=== PATIENT | female | born 1995 | race Caucasian/White ===

== ENCOUNTER 2024-09-19 09:37 | Outpatient (OUT) | payer OTHER, SELFPAY ==
--- NOTE | 2024-09-19 09:55 | XR_ITS ---
[address] [address] Patient Name: EFE DODGE MRN: [id number] date: 1995 Sex: F Assigned Patient Location: [facility] Current Patient Location: [facility] Accession/Order Number: [id number] Exam Date: 09/19/2024 12:31 Report Date: 09/19/2024 12:31 At the request of: LEONARD CHEW MD Procedure: XR chest 2V Chest 2 views CLINICAL HISTORY: Preop exam COMPARISON: None FINDINGS: Heart normal in size. Lungs are clear. No free air. XR/XR chest 2V IMPRESSION: NO ACUTE CARDIOPULMONARY ABNORMALITY. Impression dictated by: [place] Jr. DRaquelORaquel09/19/2024 12:31 PM Dictation Location: [place] [address] Electronically authenticated by: [id number] Y Date: 09/19/2024 12:31
--- NOTE | 2024-09-19 09:55 | ECG_ITS ---
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 Measurements Intervals [place] Rate: 69 P: 18 [place]: 166 QRS: 15 QRSD: 90 T: 33 QT: 381 QTc: 410 Interpretive Statements SINUS RHYTHM Compared to ECG 07/08/2017 23:31:56 No significant changes Electronically Signed On 09-19-2024 17:29:40 EDT by ANDREI VANEGAS M.D.
--- NOTE | 2024-09-19 10:37 | PM.PRESUREVA ---
History of Present Illness History of Present Illness Chief complaint: right trigger thumb Narrative: Patient presents for presurgical testing. The patient reports a 2-month history of right trigger thumb. The patient states she had a left trigger thumb with release in the past with a good result. The patient states she does take Celebrex for fibromyalgia and this also gives some relief of her pain, but when she does repetitive activities she has an increase in her discomfort. Review of Systems ROS Narrative REVIEW OF SYSTEMS: Negative except as stated in HPI, ten or more systems reviewed. Constitutional: No fever, chills, weakness ENT: No sore throat or epistaxis Cardiovascular: No edema, chest pain, palpitations, or activity intolerance Respiratory: No shortness of breath, cough, or wheezing Gastrointestinal: No abdominal pain, constipation, diarrhea, or vomiting Genitourinary: No dysuria or hematuria Neurological: No numbness, tingling, weakness, or headache Psychiatric: No mood changes [facility] History (Updated 09/19/24 @ 10:18 by Falguni Mendoza NP) PVCs (premature ventricular contractions) ?I49.3 - Ventricular premature depolarization (ICD-10) Arthritis ?M19.90 - Unspecified osteoarthritis, unspecified site (ICD-10) Fibromyalgia ?M79.7 - Fibromyalgia (ICD-10) Back pain ?M54.9 - Dorsalgia, unspecified (ICD-10) Anemia ?D64.9 - Anemia, unspecified (ICD-10) PTSD (post-traumatic stress disorder) ?F43.10 - Post-traumatic stress disorder, unspecified (ICD-10) Panic attacks ?F41.0 - Panic disorder [episodic paroxysmal anxiety] (ICD-10) Asthma ?J45.909 - Unspecified asthma, uncomplicated (ICD-10) Migraine ?G43.909 - Migraine, unspecified, not intractable, without status migrainosus (ICD-10) PVD (peripheral vascular disease) ?I73.9 - Peripheral vascular disease, unspecified (ICD-10) Postoperative nausea and vomiting ?R11.2 - Nausea with vomiting, unspecified (ICD-10) ?Z98.890 - Other specified postprocedural states (ICD-10) Sciatica ?M54.30 - Sciatica, unspecified side (ICD-10) Ovarian cyst ?N83.209 - Unspecified ovarian cyst, unspecified side (ICD-10) Endometriosis ?N80.9 - Endometriosis, unspecified (ICD-10) Depression ?F32.A - Depression, unspecified (ICD-10) Chronic back pain ?M54.9 - Dorsalgia, unspecified (ICD-10) ?G89.29 - Other chronic pain (ICD-10) Bronchitis ?J40 - Bronchitis, not specified as acute or chronic (ICD-10) Anxiety ?F41.9 - Anxiety disorder, unspecified (ICD-10) Trigger thumb ?M65.319 - Trigger thumb, unspecified thumb (ICD-10) Surgical History (Updated 09/19/24 @ 10:17 by Falguni Mendoza NP) History of tonsillectomy and adenoidectomy ?Z90.89 - Acquired absence of other organs (ICD-10) History of hip surgery ?Z98.890 - Other specified postprocedural states (ICD-10) History of radiofrequency ablation (RFA) of nerve of lumbar spine ?Z98.890 - Other specified postprocedural states (ICD-10) S/P epidural steroid injection ?Z92.241 - Personal history of systemic steroid therapy (ICD-10) History of carpal tunnel release ?Z98.890 - Other specified postprocedural states (ICD-10) H/O hand surgery ?Z98.890 - Other specified postprocedural states (ICD-10) History of hysterectomy ?Z90.710 - Acquired absence of both cervix and uterus (ICD-10) History of cholecystectomy ?Z90.49 - Acquired absence of other specified parts of digestive tract (ICD-10) Family History (Updated 09/19/24 @ 10:17 by Falguni Mendoza NP) Other Family history of cancer Family history of diabetes mellitus Family history of heart disease Family history of hypertension Family history of myocardial infarction Family history of pulmonary embolism Family history of stroke Social History (Updated 09/19/24 @ 10:12 by Falguni Mendoza NP) Within the past year, how often did you have a drink containing alcohol: monthly or less Smoking status: Never smoker Non-prescribed substance use: cannabis (any form) Highest level of school completed/degree received: some college, no degree Meds Home Medications and Allergies Home Medications ?Medication ?Instructions ?Recorded ?Confirmed ?Type albuterol sulfate 90 mcg/actuation 2 inh inhalation Q4H PRN 09/19/24 09/19/24 History aerosol inhaler bronchospasm budesonide-formoterol HFA 160 1 inh inhalation Q12H 09/19/24 09/19/24 History mcg-4.5 mcg/actuation aerosol inhaler (Symbicort) cariprazine 1.5 mg capsule 1.5 mg PO DAILY 09/19/24 09/19/24 History (Vraylar) celecoxib 200 mg capsule 200 mg PO Q12H 09/19/24 09/19/24 History cholecalciferol (vitamin D3) 25 25 mcg PO DAILY 09/19/24 09/19/24 History mcg (1,000 unit) capsule gabapentin 100 mg capsule 100 mg PO DAILY 09/19/24 09/19/24 History ipratropium 0.5 mg-albuterol 3 mg 3 ml inhalation Q6H PRN shortness 09/19/24 09/19/24 History (2.5 mg base)/3 mL nebulization of breath or wheezing soln magnesium glycinate 100 mg (as 100 mg PO DAILY 09/19/24 09/19/24 History glycinate) tablet (Mag Glycinate) montelukast 10 mg tablet 10 mg PO QPM 09/19/24 09/19/24 History (Singulair) tizanidine 2 mg tablet 2 mg PO QPM 09/19/24 09/19/24 History trazodone 50 mg tablet 50 mg PO QPM 09/19/24 09/19/24 History Allergies Allergy/AdvReac Type Severity Reaction Status Date / Time No Known Drug Allergies Allergy Verified 09/19/24 10:06 Exam Narrative Exam Narrative: Constitutional: Awake, alert, comfortable, well-appearing, nontoxic, interactive, vital signs as charted Head: Normocephalic, atraumatic Neck: Supple, normal appearance, normal range of motion, no meningeal signs, no lymphadenopathy Respiratory: No respiratory distress, breath sounds clear Cardiovascular: Regular rate and rhythm, strong and regular heart tones Musculoskeletal: Normal gait, no swelling or edema, mild tenderness at the base of the right thumb Skin: No rashes or induration, no lesions, only visible skin inspected Neuro: No neurological deficits, normal sensation Psychiatric: Oriented ?3, normal affect Assessment and Plan Assessment and Plan (1) Trigger thumb: Plan Right trigger thumb release scheduled with Dr. Randlal October 03, 2024.
[2024-09-19 10:39] LABS: Basophils Percent Auto 0.2 % (0.2-2.0); Eosinophils Absolute Auto 0.3 10^3/uL (0.0-0.7); Eosinophils Percent Auto 2.9 % (0.9-7.0); Hemoglobin 13.5 g/dL (12.0-16.0); Immature Granulocytes Abs Auto 0.03 10^3/uL (0.00-0.03); Immature Granulocytes Pct Auto 0.3 % (0.0-0.5); Lymphocytes Absolute Auto 2.3 10^3/uL (1.2-3.8); Lymphocytes Percent Auto 23.5 % (20.5-60.0); Mean Corpuscular HGB Conc 32.9 g/dL (29.9-35.2); Mean Corpuscular Volume 88.2 fL (81.0-99.0); Mean Platelet Volume 9.5 fL (9.5-13.5); Monocytes Absolute Auto 0.5 10^3/uL (0.3-0.8); Neutrophils Absolute Auto 6.7 10^3/uL (1.4-6.5); Neutrophils Percent Auto 68.1 % (43.0-75.0); Platelet Count 311 10^3/uL (150-450); Red Blood Count 4.65 10^6/uL (4.20-5.40); Red Cell Distribution Width 12.1 % (11.0-15.0); White Blood Count 9.8 10^3/uL (4.0-11.0)
[2024-09-19 11:09] LABS: Anion Gap 9.6; BUN Creatinine Ratio 24.7; Calcium 9.3 mg/dL (8.5-10.1); Carbon Dioxide 28.6 mmol/L (21.0-32.0); Chloride 106 mmol/L (98-107); Estimated GFR (African America >60 (>=60 mL/min/1.73m^2); Estimated GFR (Non-African Ame >60 (>=60 mL/min/1.73m^2); Glucose 97 mg/dL (74-106); Potassium 4.2 mmol/L (3.5-5.1); Sodium 140 mmol/L (136-145)
== END 2024-09-19 09:38 | disposition home or self-care (01) ==
LOC: PST 09:41
PROVIDERS: PCP Internal Medicine; Visit Provider Orthopaedic Surgery
DX: Z01.810 Encounter for preprocedural cardiovascular examination (principal); Z01.812 Encounter for preprocedural laboratory examination; Z01.818 Encounter for other preprocedural examination; M65.311 Trigger thumb, right thumb
CPT/HCPCS: 71046; 80048; 85025; 93005; G0463

== ENCOUNTER 2024-09-30 06:35 | Outpatient (OUT) | payer OTHER, SELFPAY ==
--- OUTSIDE RECORDS SUMMARY | 2024-09-30 06:40 | XMS_ITS | CCD ---
Author Organization [facility] Care Team Providers Care Chief Operator Name Role Phone GARCIA BRADLEY Unavailable Unavailable ARVIND, GARCIA Fuller Unavailable Unavailable ARVIND, GARCIA Fuller Unavailable Unavailable GARCIA SINGLETARY Unavailable Unavailable KIRK, GARCIA Unavailable Unavailable MARKER, ANJUM Unavailable Unavailable MARKER, ANJUM Unavailable Unavailable LEONARD LI Unavailable Unavailable MARKER, ANJUM Unavailable Unavailable Hussein Austin Primary Care Provider Hussein Austin Primary Care Provider [phone] Unavailable Primary Care Provider Unavailabl e Yohan James Primary Care Provider Yohan James Primary Care Provider [phone] Yohan Alford APRN, NP Primary Care Provider Estela De La Torre Primary Care Physician Yohan Bernstein CNP Primary Care Provider [phone] Estela De La Torre Primary Care Physician Nicol Tony Attending Unavailab Yohan Melgoza Consulting Unavailable Yohan James Primary Care Unavailable Yohan James CNP Primary Care Provider Yohan Alford APRN, NP Primary Care Provider Yohan Alford APRN, NP Primary Care Provider YUDI REYES Attending Unavailable MAIN HUIZAR Referring Unavailable YOHAN JAMES Primary Care Unavailable MAIN HUIZAR Attending Unavailable MAIN HUIZAR Referring Unavailable YOHAN JAMES Primary Care Unavailable MAIN HUIZAR Attending Unavailable BALNCA, YOHAN Primary Care Unavailable JALIL PANDYA Referring Unavailable Blanca PRUDENCIOYohan Primary Care Provider [phone] Blanca STRATIGRAPHER - BANK APPRAISER, Yohan L Primary Care Provider Blanca STRATIGRAPHER - BANK APPRAISER, Yohan L Primary Care Provider Blanca STRATIGRAPHER - BANK APPRAISER, Yohan L Primary Care Provider DL BRICE Attending Unavailable BLANCA, YOHAN VICENTE Primary Care Unavailable DL BRICE Attending Unavailable LD BRICE Referring Unavailable BLANCA, YOHAN VICENTE Primary Care Unavailable BLANCA, YOHAN L Primary Care Unavailable LEONARD RANDALL Admitting Unavailable RANDALLLEONARD Attending Unavailable BLANCA, YOHAN L Primary Care Unavailable RANDALL, LEONARD C Admitting Unavailable RANDALLLEONARD C Attending Unavailable Blanca STRATIGRAPHER - BANK APPRAISER, Yohan L Primary Care Provider BAY CROSS Referring Unavailable BLANCA, YOHAN L Primary Care Unavailable BLANCA, YOHAN L Primary Care Unavailable YEISON HANSEN Referring Unavailable ANDES, ELFEGO Referring Unavailable ANDTHO DAVIESIN Attending Unavailable BLANCA, YOHAN L Primary Care Unavailable ANDESTHOIN Attending Unavailable BLANCA, YOHAN L Primary Care Unavailable BLANCA, YOHAN L Primary Care Unavailable GARCIA PEACE Attending Unavailable BLANCA, YOHAN L Primary Care Unavailable BLANCA, YOHAN L Primary Care Unavailable LEONARD RANDALL C Referring Unavailable BLANCA, YOHAN L Primary Care Unavailable YEISON HANSEN Referring Unavailable Blanca STRATIGRAPHER - BANK APPRAISER, Yohan Kathrin Primary Care Provider BLANCA, YOHAN L Primary Care Unavailable BAY CROSS Referring Unavailable Glanz STRATIGRAPHER-PROFESSIONAL PROGRAMMER ANALYST, Janette K Primary Care Provider BLANCAYOHAN RODRIGUEZ VICENTE Primary Care Unavailable NGOC WISE Attending Unavailable ANGELI CORONEL Referring Unavailable BLANCA, YOHAN VICENTE Primary Care Unavailable GLANZ, JANETTE K Attending Unavailable BLANCAYOHAN VICENTE Referring Unavailable GLANZ, JANETTE K Primary Care Unavailable GLANZ, JANETTE K Referring Unavailable GLANZ, JANETTE K Primary Care Unavailable GLANZ, JANETTE K Attending Unavailable GLANZ, JANETTE K Referring Unavailable JANETTE MILLER Primary Care Unavailable LISA WADE V Attending Unavailable JANETTE MILLER Referring Unavailable JANETTE MILLER Primary Care Unavailable JOSEPH IVEY Attending Unavailable JIMBO, MAURY Attending Unavailable JOSEPH IVEY Attending Unavailable JOSEPH IVEY Attending Unavailable JIMBO, MAURY Referring Unavailable JIMBO, MAURY Referring Unavailable JIMBO, MAURY Referring Unavailable JIMBO, MAURY Referring Unavailable JIMBO, MAURY Referring Unavailable JIMBO, MAURY Attending Unavailable JIMBO, MAURY Admitting Unavailable JIMBO, MAURY Attending Unavailable JIMBO, MAURY Attending Unavailable JOSEPH IVEY Attending Unavailable Allergies Allergy Classification Reported Allergen(s) Allergy Type Date of Onset Reaction(s) Facility (1 source) No Known Medication Allergies; Translations: [No Known Medication Allergies] Propensity to adverse reactions to drug (disorder) [facility] Repository Medications Current Medications Medication Drug Class(es) Dates Sig (Normalized) Sig (Original) *MEDICAL MARIJUANA Miscellaneous (16 sources) Start: 03-04-2022 *MEDICAL MARIJUANA Miscellaneous 03/04/2022 Provider: acetaminophen 325 mg / HYDROcodone bitartrate 5 mg oral tablet (3 sources) Opioid Agonist Start: 01-23-2021 End: 01-26-2021 take 1 tablet by mouth every six hours as needed for pain and pain, then take 1-2 tablets by mouth every four to six hours as needed for pain and pain HYDROcodone-acetami nophen (NORCO) 5-325 MG per tablet Indications: Right carpal tunnel syndrome Take 1 tablet by mouth every 6 hours as needed for Pain for up to 3 days. 1-2 tabs by mouth every 4-6 hours as needed for pain. 8 tablet 0 01/23/2021 01/26/2021 Active Start: 01-23-2021 End: 01-23-2021 take 1 tablet by mouth once as needed for pain 1 tablet, Oral, ONCE PRN, Pain Moderate (4-6), Pain Severe (7-10), Starting on Thu01/23/21 at 0716, For 1 dose PHASE II PACU only [id number] 200 actuat albuterol 0.09 mg/actuat metered dose inhaler (20 sources) beta2-Adrenergic Agonist Start: 07-06-2022 albut shan (PROVENTIL) nebulizer solution 2.5 mg Start: 07-06-2022 albuterol (PRO VENTIL) (2.5 MG/3ML) 0.083% nebulizer solution Start: 07-06-2022 take 2 puff(s) by in halation four times daily as needed for wheezing albuterol sulfate HFA (VENTOLIN HFA) 108 (90 Base) MCG/ACT inhaler Inhale 2 puffs into the lungs 4 times daily as needed for Wheezing 18 g 5 07/06/2022 Active Start: 12-18-2021 End: 07-06-2022 take 2 puff(s) by inhalation every six hours as needed for wheezing albuterol sulfate HFA (VENTOLIN HFA) 108 (90 Base) MCG/ACT inhaler Inhale 2 puffs into the lungs every 6 hours as needed for Wheezing 18 g 11 12/18/2021 07/06/2022 Discontinued (LIST CLEANUP) Start: 07-25-2020 Ventolin HFA 1 08 (90 Base) MCG/ACT Inhalation Aerosol Solution 07/25/2020 Provider: Yohan James CNP Start: 07-25-2020 End: 11-22-2021 Albuterol Sulfate HFA 108 (9 0 Base) MCG/ACT Inhalation Aerosol Solution 07/25/2020 - 11/22/2021 Provider: Start: 07-25-2020 End: 02-05-2024 Ventolin HFA 108 (90 Base) M CG/ACT Inhalation Aerosol Solution 08/05/2021 - 02/05/2024 Provider: Yohan James CNP Start: 07-25-2020 End: 01-20-2021 albuterol sulfate HFA 108 (9 0 Base) MCG/ACT inhaler Albuterol Ventolin HFA 108 (90 Base) MCG/ACT Inhalation Aerosol Solution 07/25/2020 Provider: Yohan James CNP 07-25-2020 Yohan James [facility] ([id number]) 0 07/25/2020 01/20/2021 Discontinued (Therapy completed) Start: 07-09-2020 End: 07-09-2020 albuterol (PROVENTIL) nebuli zer solution 2.5 mg take 2 puff(s) by in halation every six hours as needed for wheezing albuterol (PROVENTIL HFA;VENTOLIN HFA) 90 mcg/actuation inhaler Inhale 2 puffs every 6 (six) hours as needed for wheezing. Active albuterol 0.833 mg/ml / ipratropium bromide 0.167 mg/ml inhalation solution (20 sources) Anticholinergic, beta2-Adrenergic Agonist Start: 07-16-2023 take 3 mL by inhalation every four hours as needed for wheezing ipratropium 0.5 mg-albuterol 2.5 mg (DUONEB) 0.5-2.5 (3) MG/3ML SOLN nebulizer solution Inhale 3 mLs into the lungs every 4 hours as needed for Shortness of Breath or Wheezing 360 mL 3 07/16/2023 Active Start: 07-30-2022 End: 06-24-2023 Ipratropium-Albuterol 0.5-2. 5 (3) MG/3ML Inhalation Solution 07/30/2022 - 06/24/2023 Provider: Yohan James CNP Start: 07-14-2022 End: 07-14-2022 ipratropium-albuterol (DUONE B) nebulizer solution 1 ampule take 3 mL by inhalat ion four times daily ipratropium-albuteroL (DUONEB) 0.5 mg-3 mg(2.5 mg base)/3 mL nebulizer Inhale 3 mL by nebulization 4 (four) times a day. Active take 3 mL by inhalat ion every four hours ipratropium-albuterol (DUONEB) 0.5-2.5 (3) MG/3ML SOLN nebulizer solution Inhale 3 mLs into the lungs every 4 hours 0 Active albuterol sulfate HFA 108 (90 Base) MCG/ACT inhaler (7 sources) Start: 07-25-2020 albuterol sulfate HFA 108 (90 Base) MCG/ACT inhaler Albuterol Ventolin HFA 108 (90 Base) MCG/ACT Inhalation Aerosol Solution 07/25/2020 Provider: Yohan James CNP 07-25-2020 Yohan James [facility] ([id number]) 0 07/25/2020 Active Alcohol Pads 70% (8 sources) Start: 06-24-2023 Alcohol Pads 70% 06/24/2023 Provider: Nargis Reynolds CNP azithromycin 250 mg oral tablet (1 source) Macrolide Antimicrobial Start: 07-14-2022 End: 07-18-2022 azithromycin (ZITHROMAX Z-ANTONY) 250 MG tablet Indications: Bronchitis Take 2 tablets (500 mg) on Day 1, and then take 1 tablet (250 mg) on days 2 through 5. 1 packet 0 07/14/2022 07/18/2022 Active Budesonide / formoterol (20 sources) Corticosteroid, beta2-Adrenergic Agonist Start: 06-23-2023 take 2 puff(s) by inhalation in the morning budesonide-formot Shan (SYMBICORT) 160-4.5 mcg/actuation inhaler Inhale 2 puffs in the morning and 2 puffs before bedtime. 06/23/2023 Active Start: 03-04-2022 End: 02-05-2024 take 2 puff(s) by mouth twice daily budesonide-formoterol (SYMBICORT) 160-4.5 MCG/ACT AERO INHALE TWO PUFFS BY MOUTH TWICE A DAY 10.2 g 5 06/23/2023 Active Start: 12-18-2021 Symbicort 160- 4.5 MCG/ACT Inhalation Aerosol 03/04/2022 Provider: 12 hr buPROPion hydrochloride 90 mg / naltrexone hydrochloride 8 mg extended release oral tablet (2 sources) Opioid Antagonist, Aminoketone Start: 04-18-2020 take 2 tablets by mouth once daily in the morning, then take 1 tablet by mouth once, then take 3 tablets by mouth naltrexone-buPROPion (CONTRAVE) 8-90 MG per extended release tablet Indications: Obesity, Class III, BMI 40-49.9 (morbid obesity) (HCC) Take 1 tablet p.o. every morning on week 1; take 1 tablet p.o. twice daily on week 2; take 2 tablets p.o. every morning and 1 p.o. every afternoon week 3; thereafter take 2 tablets p.o. twice daily 120 tablet 0 04/18/2020 Active Start: 03-19-2020 take 2 tablets by mo ut once daily in the morning, then take 1 tablet by mouth once, then take 3 tablets by mouth naltrexone-buPROPion (CONTRAVE) 8-90 MG per extended release tablet Indications: Obesity, Class III, BMI 40-49.9 (morbid obesity) (HCC) Take 1 tablet p.o. every morning on week 1; take 1 tablet p.o. twice daily on week 2; take 2 tablets p.o. every morning and 1 p.o. every afternoon week 3; thereafter take 2 tablets p.o. twice daily 120 tablet 0 03/19/2020 Active cariprazine 1.5 mg oral capsule (4 sources) Atypical Antipsychotic Start: 07-11-2024 VRAYLAR 1.5 mg capsule 07/11/2024 Active celecoxib 200 mg oral capsule (1 source) Nonsteroidal Anti-inflammatory Drug Start: 09-14-2024 take 1 capsule by mouth in the morning, then take 1 capsule by mouth at bedtime celecoxib (CeleBREX) 200 mg capsule Indications: Fibromyalgia Take 1 capsule (200 mg total) by mouth in the morning and 1 capsule (200 mg total) before bedtime. 60 capsule 2 09/14/2024 Active Start: 09-14-2024 take 1 capsule by mo uth in the morning, then take 1 capsule by mouth at bedtime celecoxib (CeleBREX) 200 mg capsule Indications: Fibromyalgia Take 1 capsule (200 mg total) by mouth in the morning and 1 capsule (200 mg total) before bedtime. 60 capsule 2 09/14/2024 Active cyclobenzaprine hydrochloride 10 mg oral tablet (20 sources) Muscle Relaxant Start: 07-10-2023 End: 09-14-2024 take 1 tablet by mouth twice daily as needed for muscle spasms cyclobenzaprine (FLEXERIL) 10 mg tablet Take 1 tablet (10 mg total) by mouth 2 (two) times a day as needed for muscle spasms. 10 tablet 07/10/2023 09/14/2024 Discontinued (Therapy completed) Start: 08-05-2021 End: 03-04-2022 Cyclobenzaprine HCl 5 MG Ora l Tablet 11/22/2021 - 03/04/2022 Provider: Yohan James CNP Start: 03-20-2020 End: 03-30-2020 take 1 tablet by mouth three times daily as needed for muscle spasms cyclobenzaprine (FLEXERIL) 10 MG tablet Take 1 tablet by mouth 3 times daily as needed for Muscle spasms 15 tablet 0 03/20/2020 03/30/2020 Active dicyclomine hydrochloride 10 mg oral capsule (20 sources) Anticholinergic Start: 06-12-2022 take 1 capsule by mouth four times daily dicyclomine (BENTYL) 10 MG capsule Take 1 capsule by mouth 4 times daily 30 capsule 0 06/12/2022 Active Start: 01-11-2021 End: 01-20-2021 take 1 capsule by mouth every six hours as needed dicyclomine (BENTYL) 10 MG capsule Take 1 capsule by mouth every 6 hours as needed (cramps) 20 capsule 0 01/11/2021 01/20/2021 Discontinued (LIST CLEANUP) Start: 08-27-2020 End: 09-25-2020 Dicyclomine HCl 20 MG Oral T ablet 08/28/2020 - 09/25/2020 Provider: doxycycline hyclate 100 mg oral tablet (1 source) Tetracycline-class Drug Start: 02-25-2021 End: 03-04-2021 take 1 tablet by mouth twice daily doxycycline hyclate (VIBRA-TABS) 100 MG tablet Take 1 tablet by mouth 2 times daily for 7 days 14 tablet 0 02/25/2021 03/04/2021 Active estradiol 1 mg oral tablet (18 sources) Estrogen Start: 07-03-2023 take 1 tablet by mouth in the morning estradioL (ESTRACE) 1 mg tablet Take 1 tablet (1 mg total) by mouth in the morning. 07/03/2023 Active Start: 06-24-2023 Estradiol 0.1 MG/24HR Transdermal Patch Weekly 06/24/2023 Provider: Start: 01-05-2023 take 1 tablet by enoch once daily estradiol (ESTRACE) 1 MG tablet Take 1 tablet by mouth daily 30 tablet 3 01/05/2023 Active gabapentin 100 mg oral capsule (20 sources) Anti-epileptic Agent Start: 09-14-2024 End: 12-27-2024 take 1 capsule by mouth once daily, then take 2 capsules by mouth once daily, then take 3 capsules by mouth once daily gabapentin (NEURONTIN) 100 mg capsule Indications: Fibromyalgia Take 1 capsule (100 mg total) by mouth once daily for 7 days, THEN 2 capsules (200 mg total) once daily for 7 days, THEN 3 capsules (300 mg total) once daily for 90 days. 291 capsule 09/14/2024 12/27/2024 Active Start: 10-18-2020 End: 11-17-2020 gabapentin (NEURONTIN) 100 M G capsule Take 2 capsules by mouth 3 times daily for 30 days. Intended supply: 90 days 180 capsule 2 10/18/2020 11/17/2020 Active Start: 09-13-2020 End: 03-27-2021 Gabapentin 100 MG Oral Capsu le 09/25/2020 - 03/27/2021 Provider: hydroCHLOROthiazide 25 mg oral tablet (3 sources) Thiazide Diuretic Start: 10-17-2022 End: 10-23-2022 take 0.5 tablet by mouth once daily in the morning hydroCHLOROthiazide (HYDRODIURIL) 25 MG tablet Take 0.5 tablets by mouth every morning for 6 days 3 tablet 0 10/17/2022 Active ibuprofen 800 mg oral tablet (20 sources) Nonsteroidal Anti-inflammator y Drug Start: 07-10-2023 End: 09-14-2024 take 1 tablet by mouth three times daily ibuprofen (MOTRIN) 800 mg tablet Take 1 tablet (800 mg total) by mouth 3 (three) times a day. 30 tablet 2 2024 09/14/2024 Discontinued (Therapy completed) Start: 04-08-2021 take 1 tablet by enoch th every six hours as needed for pain ibuprofen (IBU) 600 MG tablet Take 1 tablet by mouth every 6 hours as needed for Pain 30 tablet 0 04/08/2021 Active Start: 05-16-2020 End: 08-29-2020 take 1 tablet by mouth every eight hours as needed for pain ibuprofen (ADVIL;MOTRIN) 800 MG tablet Take 1 tablet by mouth every 8 hours as needed for Pain 30 tablet 0 05/16/2020 08/29/2020 Discontinued (LIST CLEANUP) lidocaine 0.05 mg/mg medicated patch (8 sources) Antiarrhythmic, Amide Local Anesthetic Start: 07-10-2023 apply 1 dose transdermal route once daily, then apply 1 dose transdermal route every twelve hours lidocaine (LIDODERM) 5 % Place 1 patch on the skin daily. Remove & Discard patch within 12 hours or as directed by 30 patch 07/10/2023 Active Start: 11-12-2021 lidocaine 4 % external patch 1 patch Start: 03-20-2020 End: 03-30-2020 lidocaine (LIDODERM) 5 % Davey ce 1 patch onto the skin daily for 10 days 12 hours on, 12 hours off. 10 patch 0 03/20/2020 03/30/2020 Active 3 ml liraglutide 6 mg/ml pen injector (20 sources) GLP-1 Receptor Agonist Start: 02-10-2023 End: 02-05-2024 liraglutide, weight loss, (SAXENDA) 3 mg/0.5 mL (18 mg/3 mL) pen injector Inject 0.6 mg under the skin once daily. 02/10/2023 Active Start: 02-10-2023 liraglutide-we ight management (SAXENDA) 18 MG/3ML SOPN Inject 0.6 mg into the skin daily Week 1 inject .6mg daily Week 2 inject 1.2mg daily Week 3 inject 1.8mg daily Week 4 inject 2.4mg daily 3 Adjustable Dose Pre-filled Pen Syringe 0 02/10/2023 Active medical marijuana (11 sources) Start: 03-04-2022 medical mariju flip *MEDICAL MARIJUANA Miscellaneous 03/04/2022 Provider: 03/04/2022 Active Start: 03-04-2022 medical mariju flip *MEDICAL MARIJUANA Miscellaneous 03/04/2022 Provider: 0 03/04/2022 Active montelukast 10 mg oral tablet (20 sources) Leukotriene Receptor Antagonist Start: 07-25-2020 End: 02-05-2024 take 1 tablet by mouth once daily montelukast (SINGULAIR) 10 mg tablet Take 1 tablet (10 mg total) by mouth nightly. 07/16/2023 Active Start: 04-05-2019 End: 08-22-2019 take 1 tablet by mouth once daily montelukast (SINGULAIR) 10 MG tablet Indications: Seasonal allergic rhinitis due to pollen Take 1 tablet by mouth daily 30 tablet 1 04/05/2019 08/22/2019 Discontinued (LIST CLEANUP) naproxen sodium 550 mg oral tablet (15 sources) Nonsteroidal Anti-inflammatory Drug Start: 08-07-2022 take 1 tablet by mouth twice daily at mealtime as needed for pain naproxen sodium (ANAPROX) 550 MG tablet Indications: Endometriosis Take 1 tablet by mouth 2 times daily (with meals) As needed for pelvic pain 60 tablet 5 08/07/2022 Active nirmatrelvir/riton avir (PAXLOVID) 20 x 150 MG & 10 x 100MG TBPK (1 source) Start: 07-21-2022 End: 07-26-2022 nirmatrelvir/christopher navir (PAXLOVID) 20 x 150 MG & 10 x 100MG TBPK Take 3 tablets (two 150 mg nirmatrelvir and one 100 mg ritonavir tablets) by mouth every 12 hours for 5 days. 30 tablet 0 07/21/2022 07/26/2022 Active nitrofurantoin, macrocrystals 25 mg / nitrofurantoin, monohydrate 75 mg oral capsule (1 source) Nitrofuran Antibacterial Start: 04-08-2021 End: 04-13-2021 take 1 capsule by mouth twice daily nitrofurantoin, macrocrystal-mono hydrate, (MACROBID) 100 MG capsule Take 1 capsule by mouth 2 times daily for 5 days 10 capsule 0 04/08/2021 04/13/2021 Active prazosin 1 mg oral capsule (9 sources) alpha-Adrenergic Angelique take 1 capsule by mouth once daily prazosin (MINIPRESS) 1 MG capsule Take 1 mg by mouth nightly 0 Active promethazine hydrochloride 25 mg oral tablet (1 source) Phenothiazine Start: 06-12-2022 End: 06-19-2022 take 1 tablet by mouth every six hours as needed for nausea promethazine (PHENERGAN) 25 MG tablet Take 1 tablet by mouth every 6 hours as needed for Nausea WARNING: May cause drowsiness. May impair ability to operate vehicles or machinery. Do not use in combination with alcohol. 20 tablet 0 06/12/2022 06/19/2022 Active semaglutide, weight loss, (WEGOVY) 0.25 mg/0.5 mL pen injector (3 sources) Start: 08-23-2024 semaglutide, weight loss, (WEGOVY) 0.25 mg/0.5 mL pen injector Indications: Obesity, morbid, BMI 40.0-49.9 ([facility]) Inject 0.5 mL (0.25 mg total) under the skin every 7 days. 2 mL 3 08/23/2024 Active tiZANidine 2 mg oral tablet (14 sources) Central alpha-2 Adrenergic Agonist Start: 09-14-2024 tiZANidine (ZANAFLEX) 2 mg tablet Indications: Fibromyalgia One tab at 8:00 p.m.each night 30 tablet 2 09/14/2024 Active Start: 03-25-2021 take 1 tablet by enoch th every eight hours as needed for pain and muscle spasms tiZANidine (ZANAFLEX) 4 MG tablet Take 1 tablet by mouth every 8 hours as needed (back pain and spasms) 10 tablet 0 03/25/2021 Active Start: 05-16-2020 End: 07-09-2020 take 1 tablet by mouth every eight hours as needed for pain tiZANidine (ZANAFLEX) 4 MG tablet Take 1 tablet by mouth every 8 hours as needed (Leg pain) 10 tablet 0 05/16/2020 07/09/2020 Discontinued (LIST CLEANUP) Completed/Discontinued Medications Medication Drug Class(es) Dates Sig (Normalized) Sig (Original) acetaminophen 325 mg oral tablet (13 sources) Start: 05-01-2022 End: 05-01-2022 acetaminophen (TYLENOL) tablet 650 mg Start: 11-12-2021 End: 11-12-2021 acetaminophen (TYLENOL) tabl et 1,000 mg Start: 08-04-2021 End: 08-04-2021 acetaminophen (TYLENOL) tabl et 1,000 mg Start: 01-23-2021 End: 01-23-2021 acetaminophen (TYLENOL) tabl et 650 mg Start: 05-16-2020 End: 05-16-2020 acetaminophen (TYLENOL) tabl et 1,000 mg Start: 11-16-2019 acetaminophen (TYLENOL) tablet 650 mg End: 01-23-2021 take 1 tablet by mouth every six hours as needed for pain acetaminophen (TYLENOL) 500 MG tablet Take 500 mg by mouth every 6 hours as needed for Pain 0 01/23/2021 Discontinued (Stop Taking at Discharge) acetaminophen 325 mg / oxyCODONE hydrochloride 5 mg oral tablet (3 sources) Opioid Agonist Start: 07-21-2022 End: 07-21-2022 oxyCODONE-acetaminophen (PERCOCET) 5-325 MG per tablet 1 tablet Start: 11-16-2019 End: 11-21-2019 take 1 tablet by mouth every six hours as needed for pain, then take 1 tablet by mouth as needed for pain oxyCODONE-acetaminophen (PERCOCET) 5-325 MG per tablet Indications: S/P laparoscopy Take 1 tablet by mouth every 6 hours as needed for Pain for up to 5 days. Intended supply: 7 days. Take lowest dose possible to manage pain 20 tablet 0 11/16/2019 11/21/2019 Active Start: 11-16-2019 oxyCODONE-acet aminophen (PERCOCET) 5-325 MG per tablet 1 tablet Adult Push Button Alum Crutc h Miscellaneous (19 sources) Start: 11-22-2021 End: 07-30-2022 Adult Push Button Alum Crutc h Miscellaneous 11/22/2021 - 07/30/2022 Provider: Yohan James CNP Start: 11-22-2021 Adult Push But ton Alum Crutch Miscellaneous 11/22/2021 Provider: Yohan James CNP albuterol sulfate HFA 108 (90 Base) MCG/ACT inhaler 4 puff (1 source) Start: 08-07-2020 End: 08-07-2020 albuterol sulfate HFA 108 (90 Base) MCG/ACT inhaler 4 puff aspirin 81 mg chewable tablet (1 source) Platelet Aggregation Inhibitor, Nonsteroidal Anti-inflammatory Drug Start: 06-21-2023 End: 06-21-2023 aspirin chewable tablet 162 mg Start: 06-21-2023 End: 06-21-2023 aspirin chewable tablet 162 mg benzonatate 100 mg oral capsule (3 sources) Non-narcotic Antitussive Start: 07-06-2022 End: 07-06-2022 benzonatate (TESSALON) capsule 100 mg Start: 07-06-2022 End: 07-11-2022 take 1 capsule by mouth three times daily as needed for cough benzonatate (TESSALON) 100 MG capsule Take 1 capsule by mouth 3 times daily as needed for Cough 15 capsule 0 07/06/2022 07/11/2022 Active Start: 08-22-2019 End: 08-29-2019 take 1 capsule by mouth three times daily as needed for cough benzonatate (TESSALON) 200 MG capsule Take 1 capsule by mouth 3 times daily as needed for Cough 20 capsule 0 08/22/2019 08/29/2019 Active brompheniramine maleate 0.4 mg/ml / dextromethorphan hydrobromide 2 mg/ml / pseudoephedrine hydrochloride 6 mg/ml oral solution (15 sources) alpha-Adrenergic Agonist, Uncompetitive X-mvibqo-T-aspartate Receptor Antagonist, Sigma-1 Agonist Start: 06-22-2023 End: 09-07-2023 Wduxabjod-Zqiumvoi-GF 30-2-10 MG/5ML Oral Syrup 06/22/2023 - 09/07/2023 Provider: Start: 06-21-2023 take 5 mL by mouth three times daily as needed for cough cjelsekbercgovo-fqeavsdvj-XL 2-30-10 mg/ 5 mL syrup Take 5 mL by mouth 3 (three) times a day as needed for congestion, cough or allergies. 06/21/2023 Active Start: 06-21-2023 take 5 mL by mouth f our times daily as needed for cough wpyzgfbnwukcmkc-ophanvpaswulvsy-TM 2-30- 10 MG/5ML syrup Take 5 mLs by mouth 4 times daily as needed for Cough 120 mL 0 06/21/2023 Active busPIRone hydrochloride 10 m g oral tablet (20 sources) Start: 04-10-2021 End: 02-05-2024 busPIRone HCl 10 MG Oral Tablet 08/05/2021 - 11/04/2021 Provider: Yohan James CNP Start: 03-27-2021 End: 04-10-2021 busPIRone HCl 7.5 MG Oral Ta blet 03/27/2021 - 04/10/2021 Provider: Yohan James CNP take 2 tablets by mo uth once daily at bedtime buspirone 10 mg tablet take 2 tablets by oral route once a day (at bedtime) calcium chloride 0.0014 meq/ ml / potassium chloride 0.004 meq/ml / sodium chloride 0.103 meq/ml / sodium lactate 0.028 meq/ml injectable solution (4 sources) Start: 08-04-2021 End: 08-04-2021 lactated ringers infusion 1,000 mL Start: 01-23-2021 lactated ringe rs infusion Start: 11-16-2019 lactated ringe rs infusion ceFAZolin (ANCEF) 3 g in dextrose 5 % 100 mL IVPB (1 source) Start: 11-16-2019 End: 11-16-2019 ceFAZolin (ANCEF) 3 g in dextrose 5 % 100 mL IVPB diazePAM 2 mg oral tablet (1 source) Benzodiazepine Start: 03-25-2021 End: 03-25-2021 diazePAM (VALIUM) tablet 2 mg dimenhyDRINATE 50 mg oral tablet (1 source) Start: 11-16-2019 End: 11-16-2019 dimenhyDRINATE (DRAMAMINE) tablet 50 mg elagolix 150 mg oral tablet (20 sources) Start: 08-07-2022 End: 12-26-2022 Orilissa 150 MG Oral Tablet 09/02/2022 - 12/26/2022 Provider: 1 ml enoxaparin sodium 100 mg/ml prefilled syringe (1 source) Low Molecular Weight Heparin Start: 01-21-2023 End: 01-21-2023 enoxaparin (LOVENOX) injection 240 mg Start: 01-21-2023 End: 01-21-2023 enoxaparin (LOVENOX) injecti on 240 mg escitalopram 10 mg oral tablet (20 sources) Serotonin Reuptake Inhibitor Start: 10-21-2020 End: 08-05-2021 Escitalopram Oxalate 10 MG Oral Tablet 12/18/2020 - 03/27/2021 Provider: Yohan James CNP Start: 08-28-2020 End: 03-27-2021 Escitalopram Oxalate 20 MG O ral Tablet 09/20/2020 - 09/25/2020 Provider: Yohan James CNP Start: 07-25-2020 End: 09-25-2020 Lexapro 10 MG Oral Tablet - 09/25/2020 Provider: Yohan James CNP Start: 07-25-2020 take 2 tablets by [facility] once daily escitalopram (LEXAPRO) 10 MG tablet Take 20 mg by mouth daily 0 07/25/2020 Active {21 (ethinyl estradiol 0.035 MG / norgestimate 0.25 MG Oral Tablet) / 7 (inert ingredients 1 MG Oral Tablet) } Pack [Sprintec 28 Day] (20 sources) Progestin, Estrogen Start: 07-25-2020 End: 08-05-2021 Sprintec 28 0.25-35 MG-MCG Oral Tablet 07/25/2020 - 08/05/2021 Provider: Start: 07-25-2020 Sprintec 28 0. 25-35 MG-MCG Oral Tablet 07/25/2020 Provider: Start: 04-12-2019 End: 01-20-2021 take 1 tablet by mouth once daily norgestimate-ethinyl estradiol (ORTHO-CYCLEN, 28,) 0.25-35 MG-MCG per tablet Indications: Irregular periods/menstrual cycles Take 1 tablet by mouth daily 1 packet 8 05/16/2020 01/20/2021 Discontinued (Therapy completed) take 1 tablet by enoch th once daily norgestimate 0.25 mg-ethinyl estradiol 35 mcg tablet take 1 tablet by oral route once daily famotidine (PEPCID) 20 mg in sodium chloride (PF) 0.9 % 10 mL injection (1 source) Start: 06-12-2022 End: 06-12-2022 famotidine (PEPCID) 20 mg in sodium chloride (PF) 0.9 % 10 mL injection 2 ml fentaNYL 0.05 mg/ml injection (1 source) Opioid Agonist Start: 01-10-2021 End: 01-10-2021 fentaNYL (SUBLIMAZE) injection 50 mcg 120 actuat fluticasone propionate 0.11 mg/actuat metered dose inhaler (20 sources) Corticosteroid Start: 07-25-2020 End: 09-25-2020 Flovent HFA 110 MCG/ACT Inhalation Aerosol 07/25/2020 - 09/25/2020 Provider: Yohan James CNP Start: 07-25-2020 take 2 puff(s) by in halation once daily fluticasone (FLOVENT HFA) 110 MCG/ACT inhaler Inhale 2 puffs into the lungs daily 0 07/25/2020 Active End: 12-05-2020 take 1 puff(s) by inhalation once daily Flovent HFA 110 mcg/actuation aerosol inhaler 12/05/2020 inhale 1 puff by inhalation route daily 60 actuat formoterol fumarate 0.005 mg/actuat / mometasone furoate 0.1 mg/actuat metered dose inhaler (20 sources) Corticosteroid, beta2-Adrenergic Agonist Start: 08-28-2020 End: 03-04-2022 Dulera 100-5 MCG/ACT Inhalation Aerosol 08/05/2021 - 03/04/2022 Provider: Yohan James CNP take 2 puff(s) by in halation twice daily mometasone-formoterol (DULERA) 100-5 MCG /ACT inhaler Inhale 2 puffs into the lungs 2 times daily 0 Active take 2 puff(s) by in halation twice daily in the morning Dulera 100 mcg-5 mcg/actuation HFA aeros ol inhaler inhale 2 puffs by inhalation route 2 times per day in the morning and evening gadoteridol (PROHANCE) injection 20 mL (1 source) Start: 09-12-2020 End: 09-12-2020 gadoteridol (PROHANCE) injection 20 mL hydrOXYzine hydrochloride 25 mg oral tablet (20 sources) Antihistamine Start: 07-25-2020 End: 08-05-2021 hydrOXYzine HCl 25 MG Oral Tablet 09/25/2020 - 08/05/2021 Provider: Yohan James CNP Start: 07-25-2020 End: 09-25-2020 hydrOXYzine (ATARAX) 25 MG t ablet Take 25 mg by mouth 0 07/25/2020 Active iopamidol (ISOVUE-370) 76 % injection 100 mL (1 source) Start: 06-21-2023 End: 06-21-2023 iopamidol (ISOVUE-370) 76 % injection 100 mL iopamidol (ISOVUE-370) 76 % injection 75 mL (8 sources) Start: 10-17-2022 End: 10-17-2022 iopamidol (ISOVUE-370) 76 % injection 75 mL Start: 07-21-2022 End: 07-21-2022 iopamidol (ISOVUE-370) 76 % injection 75 mL Start: 06-12-2022 End: 06-12-2022 iopamidol (ISOVUE-370) 76 % injection 75 mL Start: 04-08-2021 End: 04-08-2021 iopamidol (ISOVUE-370) 76 % injection 75 mL Start: 01-11-2021 End: 01-11-2021 iopamidol (ISOVUE-370) 76 % injection 75 mL Start: 08-29-2020 End: 08-29-2020 iopamidol (ISOVUE-370) 76 % injection 75 mL Start: 07-17-2020 End: 07-17-2020 iopamidol (ISOVUE-370) 76 % injection 75 mL Start: 10-11-2019 End: 10-11-2019 iopamidol (ISOVUE-370) 76 % injection 75 mL ketorolac tromethamine 10 mg oral tablet (20 sources) Nonsteroidal Anti-inflammatory Drug, Cyclooxygenase Inhibitor Start: 06-24-2023 End: 09-07-2023 Ketorolac Tromethamine 10 MG Oral Tablet 06/24/2023 - 09/07/2023 Provider: Start: 06-21-2023 ketorolac (TOR ADOL) injection 15 mg Start: 06-21-2023 take 1 tablet by enoch th every eight hours as needed for pain ketorolac (TORADOL) 10 MG tablet Take 1 tablet by mouth every 8 hours as needed for Pain 15 tablet 0 06/21/2023 Active Start: 01-05-2023 End: 01-05-2024 take 1 tablet by mouth every six hours as needed for pain ketorolac (TORADOL) 10 MG tablet Take 1 tablet by mouth every 6 hours as needed for Pain 20 tablet 0 01/05/2023 01/05/2024 Active Start: 11-12-2021 End: 11-12-2021 ketorolac (TORADOL) injectio n 30 mg Start: 03-27-2021 Ketorolac Trom ethamine 60 MG/2ML IM SOLN 03/27/2021 Yohan James CNP Start: 03-25-2021 End: 03-25-2021 ketorolac (TORADOL) injectio n 30 mg Start: 08-29-2020 End: 08-29-2020 ketorolac (TORADOL) injectio n 30 mg Start: 03-20-2020 End: 03-20-2020 ketorolac (TORADOL) injectio n 15 mg Start: 10-11-2019 End: 10-11-2019 ketorolac (TORADOL) injectio n 15 mg levocetirizine dihydrochloride 5 mg oral tablet (1 source) Histamine-1 Receptor Antagonist Start: 04-05-2019 End: 08-22-2019 take 1 tablet by mouth once daily levocetirizine (XYZAL) 5 MG tablet Indications: Seasonal allergic rhinitis due to pollen Take 1 tablet by mouth nightly 30 tablet 1 04/05/2019 08/22/2019 Discontinued (LIST CLEANUP) meloxicam 15 mg oral tablet (20 sources) Nonsteroidal Anti-inflammatory Drug Start: 09-03-2021 End: 09-14-2024 Meloxicam 15 MG Oral Tablet 09/03/2021 - 07/30/2022 Provider: Start: 08-05-2021 End: 11-22-2021 Meloxicam 10 MG Oral Capsule 08/05/2021 - 11/22/2021 Provider: metFORMIN hydrochloride 500 mg oral tablet (20 sources) Biguanide Start: 01-23-2020 End: 08-05-2021 metFORMIN HCl 500 MG Oral Tablet 07/25/2020 - 08/05/2021 Provider: Start: 11-08-2018 take 1 tablet by enoch three times daily metFORMIN (GLUCOPHAGE) 500 MG tablet Indications: History of PCOS Take 1 tablet by mouth three times daily 90 tablet 13 11/08/2018 Active take 2 tablets [facility] daily metformin 500 mg tablet take 2 tablets by oral route 3 times a day methylPREDNISolone 125 mg injection (20 sources) Corticosteroid Start: 07-14-2022 End: 07-14-2022 methylPREDNISolone sodium (SOLU-MEDROL) injection 125 mg Start: 11-22-2021 End: 03-04-2022 methylPREDNISolone 4 MG Oral Tablet Therapy Pack 11/22/2021 - 03/04/2022 Provider: Start: 03-25-2021 End: 03-31-2021 methylPREDNISolone (MEDROL, ANTONY,) 4 MG tablet Take by mouth. 1 kit 0 03/25/2021 03/31/2021 Active Start: 07-09-2020 End: 07-09-2020 methylPREDNISolone sodium (S LORI-MEDROL) injection 125 mg Start: 07-09-2020 End: 07-15-2020 methylPREDNISolone (MEDROL, ANTONY,) 4 MG tablet Take by mouth. 1 kit 0 07/09/2020 07/15/2020 Active nitroglycerin 0.3 mg sublingual tablet (1 source) Nitrate Vasodilator Start: 12-10-2022 End: 12-10-2022 nitroGLYCERIN (NITROSTAT) SL tablet 0.3 mg Start: 12-10-2022 End: 12-10-2022 nitroGLYCERIN (NITROSTAT) SL tablet 0.3 mg 2 ml ondansetron 2 mg/ml injection (20 sources) Serotonin-3 Receptor Antagonist Start: 06-12-2022 End: 06-12-2022 ondansetron (ZOFRAN) injection 4 mg Start: 08-05-2021 End: 11-22-2021 Ondansetron HCl 4 MG Oral Ta blet 08/05/2021 - 11/22/2021 Provider: Yohan James CNP Start: 08-04-2021 End: 08-04-2021 ondansetron (ZOFRAN) injecti on 4 mg Start: 01-23-2021 End: 01-23-2021 4 mg, Intravenous, ONCE PRN, Nausea, Starting on Thu01/23/21 at 0716, For 1 dose Initial antiemetic therapy. PACU only Start: 01-11-2021 take 1 tablet by enoch th every eight hours as needed for nausea ondansetron (ZOFRAN ODT) 4 MG disintegrating tablet Take 1 tablet by mouth every 8 hours as needed for Nausea 20 tablet 0 01/11/2021 Active Start: 01-11-2021 End: 01-11-2021 ondansetron (ZOFRAN) tablet 4 mg Start: 01-10-2021 End: 01-10-2021 ondansetron (ZOFRAN) injecti on 4 mg Start: 08-29-2020 take 1 tablet by enoch th three times daily as needed for nausea ondansetron (ZOFRAN-ODT) 4 MG disintegrating tablet Take 1 tablet by mouth 3 times daily as needed for Nausea or Vomiting 21 tablet 0 08/29/2020 Active Start: 08-29-2020 End: 08-29-2020 ondansetron (ZOFRAN) injecti on 4 mg Start: 11-16-2019 ondansetron (Z OFRAN) injection 4 mg take 1 tablet by enoch th every eight hours as needed for nausea ondansetron (ZOFRAN) 4 MG tablet Take 4 mg by mouth every 8 hours as needed for Nausea or Vomiting 0 Active 2 ml orphenadrine citrate 30 mg/ml injection (1 source) Muscle Relaxant Start: 03-20-2020 End: 03-20-2020 orphenadrine (NORFLEX) injection 60 mg PARoxetine hydrochloride 30 mg oral tablet (20 sources) Serotonin Reuptake Inhibitor Start: 09-02-2022 End: 02-05-2024 Paxil 30 MG Oral Tablet 10/08/2022 - 12/26/2022 Provider: Yohan James CNP Start: 04-22-2021 End: 08-05-2021 PARoxetine HCl 10 MG Oral Ta blet 04/22/2021 - 08/05/2021 Provider: Yohan James CNP Start: 04-10-2021 End: 09-02-2022 Paxil 20 MG Oral Tablet 07/08 - 03/04/2022 Provider: Yohan James CNP Start: 03-27-2021 End: 04-10-2021 Paxil 10 MG Oral Tablet 03/07 - 04/10/2021 Provider: Yohan James CNP phentermine hydrochloride 37.5 mg oral tablet (20 sources) Sympathomimetic Amine Anorectic Start: 08-27-2020 End: 03-27-2021 Adipex-P 37.5 MG Oral Tablet 08/28/2020 - 03/27/2021 Provider: 24 hr phentermine 15 mg / topiramate 92 mg extended release oral capsule (20 sources) Sympathomimetic Amine Anorectic Start: 07-25-2020 End: 09-25-2020 take 15-92 mg by mouth every twenty-four hours Qsymia 15-92 MG Oral Capsule Extended Release 24 Hour 07/25/2020 - 09/25/2020 Provider: Start: 06-14-2020 End: 08-11-2020 take 1 capsule by mouth once daily Phentermine-Topiramate (QSYMIA) 15-92 MG CP24 Indications: Obesity, Class III, BMI 40-49.9 (morbid obesity) ([facility]) Take 1 capsule by mouth daily for 30 days. 30 capsule 0 07/12/2020 08/11/2020 Active predniSONE 20 mg oral tablet (20 sources) Start: 07-24-2023 End: 09-07-2023 predniSONE 20 MG Oral Tablet 07/24/2023 - 09/07/2023 Provider: Yohan James CNP Start: 10-17-2022 End: 10-22-2022 take 1 tablet by mouth once daily predniSONE (DELTASONE) 50 MG tablet Take 1 tablet by mouth daily for 5 days 5 tablet 0 10/17/2022 10/22/2022 Active Start: 07-30-2022 End: 09-02-2022 predniSONE 20 MG Oral Tablet 07/30/2022 - 09/02/2022 Provider: Yohan James CNP Start: 07-14-2022 End: 07-19-2022 take 1 tablet by mouth once daily predniSONE (DELTASONE) 50 MG tablet Take 1 tablet by mouth daily for 5 days 5 tablet 0 07/14/2022 07/19/2022 Active Start: 07-06-2022 End: 07-11-2022 predniSONE (DELTASONE) table t 20 mg pregabalin 150 mg oral capsu le (20 sources) Start: 11-19-2021 End: 03-04-2022 Pregabalin 150 MG Oral Capsu le 11/19/2021 - 03/04/2022 Provider: take 1 capsule by mouth twice da el pregabalin (LYRICA) 100 MG capsule Take 100 mg by mouth 2 times daily. 0 Active 50 ml sodium chloride 9 mg/m l injection (10 sources) Start: 06-21-2023 End: 06-21-2023 sodium chloride 0.9 % bolus 1,000 mL Start: 10-17-2022 End: 10-17-2022 0.9 % sodium chloride bolus Start: 06-12-2022 End: 06-12-2022 0.9 % sodium chloride bolus Start: 04-08-2021 End: 04-08-2021 0.9 % sodium chloride bolus Start: 01-10-2021 End: 01-11-2021 0.9 % sodium chloride bolus Start: 08-29-2020 End: 08-29-2020 0.9 % sodium chloride bolus Start: 07-09-2020 End: 07-09-2020 sodium chloride nebulizer 0. 9 % solution Start: 11-16-2019 sodium chlorid e flush 0.9 % injection 10 mL Start: 10-11-2019 End: 10-11-2019 0.9 % sodium chloride bolus traMADol hydrochloride 50 mg oral tablet (20 sources) Opioid Agonist Start: 03-27-2021 End: 08-05-2021 traMADol HCl 50 MG Oral Tablet 03/27/2021 - 08/05/2021 Provider: Yohan James CNP tranexamic acid 650 mg oral tablet (10 sources) Antifibrinolytic Agent Start: 12-23-2022 End: 06-24-2023 Tranexamic Acid 650 MG Oral Tablet 12/23/2022 - 06/24/2023 Provider: zonisamide 100 mg oral capsule (20 sources) Anti-epileptic Agent Start: 12-13-2021 End: 07-30-2022 Zonisamide 100 MG Oral Capsule 03/04/2022 - 07/30/2022 Provider: Problems Active Problems Problem Classification Problem Date Documented Date Episodic/Chronic Administrative/social admission (2 sources) Patient encounter status; Translations: [Other specified counseling] Onset: 09-14-2024 09-14-2024 Episodic Anxiety disorders (20 sources) Generalized anxiety disorder; Translations: [Anxiety disorder, unspecified] Onset: 07-25-2020 Chronic Asthma (20 sources) Allergic bronchitis; Translations: [Exacerbation of intermittent asthma] Onset: 07-26-2020 Resolved: 06-24-2023 Chronic Cardiac dysrhythmias (4 sources) Multiple premature ventricular complexes; Translations: [Ventricular premature depolarization] Chronic Chronic obstructive pulmonary disease and bronchiectasis (1 source) Bronchitis; Translations: [Bronchitis, not specified as acute or chronic] Episodic Conditions associated with dizziness or vertigo (4 sources) Lightheadedness; Translations: [Dizziness and giddiness] Episodic Diabetes mellitus without complication (1 source) Type 2 diabetes mellitus without complications Chronic Endometriosis (2 sources) Endometriosis, unspecified Chronic Headache; including migraine (1 source) Headache; including migraine; Translations: [Headache, unspecified] Onset: 03-01-2024 Influenza (1 source) Influenza Onset: 03-01-2024 Miscellaneous mental health disorders (2 sources) Primary insomnia; Translations: [Primary insomnia] Onset: 09-26-2024 Chronic Mood disorders (20 sources) Mild recurrent major depression; Translations: [Major depressive disorder, recurrent, mild] Onset: 07-25-2020 Resolved: 08-05-2021 Chronic Nonspecific chest pain (6 sources) Chest pain; Translations: [Atypical chest pain] Episodic Other connective tissue disease (3 sources) Other symptoms and signs involving the musculoskeletal system; Translations: [Weakness of both arms] Episodic Other connective tissue disease (2 sources) Pain in right hand Episodic Other connective tissue disease (1 source) Pain in lower limb; Translations: [Pain in leg, unspecified] Episodic Other connective tissue disease (1 source) Pain in left lower limb; Translations: [Pain in left leg] Episodic Other connective tissue disease (1 source) Pain in left arm Onset: 08-01-2021 Episodic Other connective tissue disease (2 sources) Trigger thumb, left thumb; Translations: [Trigger thumb, left thumb] Onset: 10-23-2023 Episodic Other connective tissue disease (2 sources) Pain in left foot; Translations: [Pain in left foot] Onset: 01-04-2024 Episodic Other connective tissue disease (2 sources) Fibromyalgia; Translations: [Fibromyalgia] 09-14-2024 Episodic Other connective tissue disease (1 source) Fibromyalgia; Translations: [Fibromyalgia] Onset: 09-14-2024 Episodic Other connective tissue disease (2 sources) Iliotibial band syndrome, left leg; Translations: [Iliotibial band syndrome, left leg] Onset: 09-27-2024 Episodic Other endocrine disorders (20 sources) Polycystic ovarian syndrome; Translations: [Polycystic Ovarian Syndrome (Pcos)] Onset: 01-03-2015 08-02-2019 Chronic Other endocrine disorders (20 sources) Polycystic ovary syndrome; Translations: [Polycystic ovarian syndrome] Onset: 02-11-2017 08-02-2019 Chronic Other injuries and conditions due to external causes (1 source) Injury of head; Translations: [Unspecified injury of head, initial encounter] Episodic Other injuries and conditions due to external causes (1 source) Closed injury of head; Translations: [Unspecified injury of head, initial encounter] Episodic Other lower respiratory disease (1 source) Dyspnea; Translations: [Shortness of breath] Episodic Other lower respiratory disease (1 source) Nodule of lung; Translations: [Solitary pulmonary nodule] Episodic Other lower respiratory disease (1 source) Pleuritic pain; Translations: [Pleurodynia] 06-21-2023 Episodic Other lower respiratory disease (2 sources) Other nonspecific abnormal finding of lung field; Translations: [Other nonspecific abnormal finding of lung field] Onset: 06-23-2023 Episodic Other lower respiratory disease (1 source) Multiple nodules of lung; Translations: [Other nonspecific abnormal finding of lung field] 05-27-2024 Episodic Other nervous system disorders (2 sources) Carpal tunnel syndrome, right upper limb Chronic Other nervous system disorders (2 sources) Lesion of femoral nerve, left lower limb Chronic Other nervous system disorders (1 source) Carpal tunnel syndrome of right wrist; Translations: [Carpal tunnel syndrome, right upper limb] Chronic Other nervous system disorders (1 source) Carpal tunnel syndrome, left upper limb Chronic Other nervous system disorders (3 sources) Other chronic pain; Translations: [Other chronic pain] Onset: 02-12-2022 Chronic Other nervous system disorders (1 source) Paresthesia; Translations: [Paresthesia of left upper and lower extremity] Episodic Other nervous system disorders (3 sources) Other disturbances of skin sensation Onset: 12-05-2020 Episodic Other nervous system disorders (1 source) Numbness and tingling sensation of skin; Translations: [Anesthesia of skin] Episodic Other non-traumatic joint disorders (1 source) Acute ankle pain; Translations: [Pain in right ankle and joints of right foot] Episodic Other nutritional; endocrine; and metabolic disorders (20 sources) Morbid obesity; Translations: [Morbid (severe) obesity due to excess calories] Onset: 07-25-2020 Chronic Other nutritional; endocrine; and metabolic disorders (2 sources) Morbid (severe) obesity due to excess calories Chronic Other nutritional; endocrine; and metabolic disorders (20 sources) Finding of body mass index; Translations: [Body mass index (observable entity)] Onset: 07-25-2020 Chronic Other nutritional; endocrine; and metabolic disorders (12 sources) Body mass index 40+ - severely obese; Translations: [Morbid (severe) obesity due to excess calories] Onset: 02-12-2022 02-12-2022 Chronic Other nutritional; endocrine; and metabolic disorders (20 sources) Obesity; Translations: [Other obesity] Onset: 06-24-2023 06-24-2023 Chronic Other upper respiratory infections (3 sources) Upper respiratory infection; Translations: [Viral upper respiratory tract infection] Episodic Pleurisy; pneumothorax; pulmonary collapse (2 sources) Pleurisy Episodic Residual codes; unclassified (1 source) History of laparoscopy; Translations: [S/P laparoscopy] Episodic Residual codes; unclassified (1 source) Family history of chronic obstructive lung disease; Translations: [Family history of COPD (chronic obstructive pulmonary disease)] Episodic Residual codes; unclassified (1 source) Swelling - edema - symptom; Translations: [Edema, unspecified] Episodic Residual codes; unclassified (2 sources) Peripheral edema; Translations: [Edema, unspecified] Episodic Residual codes; unclassified (1 source) Pain; Translations: [Pain, unspecified] 01-04-2024 Episodic Residual codes; unclassified (4 sources) Pain, unspecified; Translations: [Pain, unspecified] Onset: 01-04-2024 Episodic Residual codes; unclassified (3 sources) Generalized chronic body pains; Translations: [Pain, unspecified] 09-05-2024 Episodic Residual codes; unclassified (2 sources) Other specified postprocedural states; Translations: [Other specified postprocedural states] Onset: 09-27-2024 Episodic Skin and subcutaneous tissue infections (1 source) Cellulitis; Translations: [Cellulitis, unspecified] Episodic Spondylosis; intervertebral disc disorders; other back problems (11 sources) Lumbosacral spondylosis with radiculopathy; Translations: [Other spondylosis with radiculopathy, lumbosacral region] Onset: 02-12-2022 Chronic Sprains and strains (16 sources) Low back strain; Translations: [Strain of muscle, fascia and tendon of lower back, initial encounter] Onset: 07-10-2023 Episodic Unclassified (1 source) Sprain of left hip; Translations: [Hip sprain, left, initial encounter] Unclassified (3 sources) Patient encounter status; Translations: [Preoperative testing] Unclassified (1 source) Low back pain, unspecified; Translations: [Low back pain, unspecified] Onset: 02-04-2022 Unclassified (1 source) Establish Care Onset: 06-09-2024 Unclassified (1 source) Body Aches/ Left eye pain Onset: 03-01-2024 Unclassified (2 sources) Post-op; Translations: [Post-op] Onset: 08-30-2024 Unclassified (2 sources) Psychiatric Evaluation; Translations: [Psychiatric Evaluation] Onset: 06-10-2024 Urinary tract infections (1 source) Acute cystitis; Translations: [Acute cystitis without hematuria] Episodic Past or Other Problems Problem Classification Problem Date Documented Da te Episodic/Chronic Abdominal pain (20 sources) Pain in female pelvis; Translations: [Chronic abdominal pain] Onset: 08-02-2023 11-16-2019 Episodic Allergic reactions (20 sources) Allergic contact dermatitis due to plants, except food; Translations: [Allergic contact dermatitis caused by plant] Onset: 02-08-2017 08-02-2019 Episodic Cardiac dysrhythmias (20 sources) Palpitations; Translations: [Palpitations] Onset: 09-02-2022 Resolved: 06-24-2023 09-02-2022 Episodic Fluid and electrolyte disorders (1 source) Dehydration; Translations: [Dehydration] Onset: 08-02-2023 Episodic Heart valve disorders (20 sources) Heart murmur; Translations: [Cardiac murmur, unspecified] Onset: 08-04-2018 08-04-2018 Episodic Influenza (20 sources) Influenza due to Influenza A virus; Translations: [Influenza due to other identified influenza virus with other respiratory manifestations] Onset: 09-15-2018 Resolved: 10-15-2018 10-15-2018 Episodic Intracranial injury (20 sources) Concussion with no loss of consciousness; Translations: [Concussion without loss of consciousness, initial encounter] Onset: 08-05-2021 Resolved: 07-27-2023 Episodic Mood disorders (6 sources) Mood disorders Onset: 06-09-2024 06-09-2024 Nausea and vomiting (3 sources) Nausea and vomiting; Translations: [Nausea with vomiting, unspecified] Onset: 08-02-2023 Episodic Other connective tissue disease (2 sources) Pain in right arm Onset: 12-05-2020 Episodic Other connective tissue disease (2 sources) Trigger finger, left index finger; Translations: [Trigger finger, left index finger] Onset: 10-24-2022 Episodic Other gastrointestinal disorders (20 sources) Disorder of digestive tract; Translations: [Acquired absence of other specified parts of digestive tract] Onset: 02-11-2017 08-02-2019 Episodic Other gastrointestinal disorders (1 source) Diarrhea, unspecified; Translations: [Diarrhea, unspecified] Onset: 08-02-2023 Episodic Other lower respiratory disease (20 sources) Snoring; Translations: [Snoring] Onset: 08-28-2020 Episodic Other lower respiratory disease (1 source) Pleurodynia; Translations: [Pleurodynia] Onset: 06-21-2023 Episodic Other nervous system disorders (7 sources) Paresthesia of skin; Translations: [Paresthesia of both hands] Onset: 02-12-2022 Episodic Other nervous system disorders (2 sources) Anesthesia of skin; Translations: [Anesthesia of skin] Onset: 02-12-2022 Episodic Other non-traumatic joint disorders (20 sources) Hip pain; Translations: [Pain in left hip] Onset: 11-22-2021 Episodic Other non-traumatic joint disorders (6 sources) Enthesopathy of hip region; Translations: [Other specified joint disorders, left hip] Onset: 06-09-2024 06-09-2024 Episodic Other non-traumatic joint disorders (2 sources) Pain in left hip; Translations: [Pain in left hip] Onset: 05-30-2024 Episodic Other screening for suspected conditions (not mental disorders or infectious disease) (20 sources) Encounter for screening for diabetes mellitus; Translations: [Diabetes Risk Test Score] Onset: 07-25-2020 Episodic Residual codes; unclassified (1 source) Localized edema; Translations: [Localized edema] Onset: 01-22-2023 Episodic Residual codes; unclassified (1 source) Edema, unspecified; Translations: [Edema, unspecified] Onset: 01-21-2023 Episodic Spondylosis; intervertebral disc disorders; other back problems (20 sources) Dorsalgia, unspecified; Translations: [Low back pain] Onset: 03-28-2021 Episodic Unclassified (1 source) Acquired absence of other specified parts of digestive tract; Translations: [ACQ ABSENCE OTH PART DIGESTV TRACT] Onset: 02-11-2017 Episodic Unclassified (18 sources) Finding of body mass index; Translations: [Body mass index (observable entity)] Onset: 07-25-2020 Unclassified (1 source) Low back pain, unspecified; Translations: [Low back pain, unspecified] Onset: 02-04-2022 Viral infection (20 sources) Other specified viral infection; Translations: [Disease caused by 2019-nCoV] Onset: 12-27-2020 12-27-2020 Episodic Results Test Name Value Interpretation Reference Range Facility Follow-Upon 09-27-2024 Follow-Up [id number] Oswald Cox 1995 F Date Provider Department Center 09/27/2024 MAURY العلي [facility] Family History Problem Relation Age of Onset Diabetes Father Diabetes Maternal Grandmother Cancer Father's Sister Cancer Father's Sister Family Status - Relation Status Age at Father Maternal Grandmother Father's Sister Father's Sister Level of Service:81392 [place] POSTOP FOLLOW UP VISIT RELATED TO ORIGINAL PX Reason for Visit and Comments: Pain [136] [facility] 29on 09-26-2024 29 Addended by: JOSEPH IVEY on: 09/26/2024 03:03 PM Modules accepted: Level of Service [facility]al Health Telemedici mobeetie 09-26-2024 Behavioral Health Telemedicine [id number] Oswald Cox 1995 F Date Provider Department Center 09/26/2024 167-[facility] IV[facility] Family History Problem Relation Age of Onset Diabetes Father Diabetes Maternal Grandmother Cancer Father's Sister Cancer Father's Sister Family Status - Relation Status Age at Father Maternal Grandmother Father's Sister Father's Sister Level of Service:79230 [place] OFFICE/OUTPATIENT ESTABLISHED MOD MDM 30 MIN Reason for Visit and Comments: Telehealth Audio/video Visit [871] [facility] 36on 09-05-2024 36 Sent to [facility] Office Visiton 08-30-2024 Follow-up visit [id number] Oswald Cox 1995 F Date Provider Department [place] 08/30/2024 MAURY العلي [facility] Family History Problem Relation Age of Onset Diabetes Father Diabetes Maternal Grandmother Cancer Father's Sister Cancer Father's Sister Family Status - Relation Status Age at Father Maternal Grandmother Father's Sister Father's Sister Level of Service:43094 [place] OFFICE/OUTPT VISIT,PROCEDURE ONLY Reason for Visit and Comments: Post-op [483] - Patient is here today to follow up after her left hip surgery. She is doing well no pain or issues. [facility] HPon 08-18-2024 HP History Of Present Illness Oswald Cox is a 29 y.o. female presenting for HIP ARTHROSCOPY WITH LABRUM DEBRIDEMENT VS. (L), HIP ARTHROSCOPY WITH LABRUM REPAIR (L), IT BAND LENGTHENING (L). Symptoms unchanged compared to previous evaluations. No recent changes in overall health. No new additional changes or concerns today. Past Medical History She has a past medical history of Anxiety, Arthritis, Asthma, CTS (carpal tunnel syndrome), Depression, Fibromyalgia, primary, Fracture of wrist, Joint pain, Lumbosacral disc disease, Neuroma of foot, Spinal stenosis, Thoracic disc disease, and Trigger finger. Surgical History She has a past surgical history that includes Carpal tunnel release; Trigger finger release; Hysterectomy; and Cholecystectomy. Social History She reports that she has never smoked. She has never used smokeless tobacco. She reports that she does not currently use alcohol. She reports current drug use. Frequency: 7.00 times per week. Drug: Marijuana. Family History Family History Problem Relation Name Age of Onset Diabetes Father Aamir Cox Diabetes Maternal Grandmother Alicja Ackerman Cancer Father's Sister Malaika Cox Cancer Father's Sister [facility] Allergies Patient has no known allergies. Medications Medications Prior to Admission Medication Sig Dispense Refill Last Dose albuterol 90 mcg/actuation inhaler 2 puff(s) inhaled PRN 2024 budesonide-formoteroL (Symbicort) 160-4.5 mcg/actuation inhaler Inhale 2 puffs. 08/17/2024 cariprazine (Vraylar) 1.5 mg capsule Take 1 capsule (1.5 mg) by mouth in the morning. 30 capsule 1 08/17/2024 montelukast (Singulair) 5 mg chewable tablet 1 (one) time each day at the same time. 08/17/2024 traZODone (Desyrel) 50 mg tablet Take 1 tablet (50 mg) by mouth at bedtime. 30 tablet 1 08/17/2024 Victoza 2-Antony 0.6 mg/0.1 mL (18 mg/3 mL) injection INJECT 1.8 mg UNDER THE SKIN ONCE DAILY for 30 Days Past Week Review of Systems Musculoskeletal: Positive for myalgias. All other systems reviewed and are negative. Last Recorded Vitals Visit Vitals BP 153/80 Pulse 76 Temp 36.2 ???C (97.2 ???F) (Temporal) Resp 16 Ht 1.753 m (5' 9 ) Wt (!) 144 kg (318 lb 5.5 oz) SpO2 98% BMI 47.01 kg/m??? OB Status Hysterectomy Smoking Status Never BSA 2.65 m??? Physical Exam Constitutional: Appearance: Normal appearance. HENT: Head: Normocephalic. Cardiovascular: Rate and Rhythm: Normal rate and regular rhythm. Pulses: Normal pulses. Pulmonary: Effort: Pulmonary effort is normal. Musculoskeletal: Comments: Left Hip: Inspection- no ecchymosis, no edema Tender to palpation over left groin/IT band Neurological: Mental Status: She is alert. Relevant Lab Results No results found for: NA , K , CL , CO2 , BUN , CREATININE , GLUCOSE , CALCIUM , ANIONGAP , EGFR , BCR Relevant Imaging Results MR transfer of outside films This order has been auto-finalized and does not contain a result. Assessment/Plan Oswald Cox is a 29 y.o. female presenting for HIP ARTHROSCOPY WITH LABRUM DEBRIDEMENT VS. (L), HIP ARTHROSCOPY WITH LABRUM REPAIR (L), IT BAND LENGTHENING (L). Proceed with procedure as planned. Jones Escobar MD Orthopaedic Surgery, Resident 08/18/24 7:44 AM Normal [facility] NURSNOTEon 08-18-2024 NURSNOTE RN reviewed discharg e instructions with patient and friend at bedside. No questions or concerns expressed at this time. Normal [facility] NURSNOTE Traction off Normal [facility] NURSNOTE Traction on left leg Normal [facility] OPNOTEon 08-18-2024 OPNOTE HIP ARTHROSCOPY WITH LABRUM DEBRIDEMENT (L), IT BAND RELEASE (L) Operative Note Date: 08/18/2024 Location: [facility] OR Name: Oswald Cox, : 1995, Diagnosis Pre-op Diagnosis * Tear of left acetabular labrum, initial encounter [S73.192A] * Iliotibial band syndrome of left side [M76.32] Post-op Diagnosis * Tear of left acetabular labrum, initial encounter [S73.192A] * Iliotibial band syndrome of left side [M76.32] Procedures HIP ARTHROSCOPY WITH LABRUM DEBRIDEMENT IT BAND RELEASE 52501 - [place] FASCIOTOMY ILIOTIBIAL OPEN [place] ARTHROSCOPY HIP W/ACETABULOPLASTY [92674] [place] FASCIOTOMY HIP/THIGH ANY TYPE [29399] Surgeons Primary: Maury Soliman MD Resident - Assisting: Jones Escobar MD Procedure Summary Anesthesia: General ASA: III Estimated Blood Loss: Minimal Total IV Fluids: mL Drains: * None in log * Staff: Pediatric Neuropsychologist: Marta Contreras RN Duco Polisher: UMAIR Chance Scrub Person: Thom Gonzalez, MELITON Indications: Oswald Cox is an 29 y.o. female who is having surgery for Tear of left acetabular labrum, initial encounter [S73.192A] Iliotibial band syndrome of left side [M76.32]. Procedure Details: The patient was seen in the preoperative area. The risks, benefits, complications, treatment options, non-operative alternatives, expected recovery and outcomes were discussed with the patient. The possibilities of reaction to medication, pulmonary aspiration, injury to surrounding structures, bleeding, recurrent infection, the need for additional procedures, failure to diagnose a condition, and creating a complication requiring transfusion or operation were discussed with the patient. The patient concurred with the proposed plan, giving informed consent. The site of surgery was properly noted/marked if necessary per policy. The patient has been actively warmed in preoperative area. Preoperative antibiotics have been ordered and given within 1 hours of incision. Venous thrombosis prophylaxis have been ordered including bilateral sequential compression devices Findings: After confirmation and marking of the left hip in the preoperative holding area, patient was brought back to the operating suite and placed in the supine position. All pressure points were adequately padded. General endotracheal anesthesia was smoothly induced preoperative antibiotics were administered. The correct surgical extremity was placed into hip traction. The hip was prepped and draped in a sterile fashion. After observation of a surgical timeout procedure using 2 separate patient identifiers, will began with the case. We first applied traction with fluoroscopy to create our standard portals. We then inspected the central compartment. We visualized the superior anterior superior and anterior labrum. There was synovitis here that was cleared out. The articular cartilage was intact. There was fraying and tearing but no detachment of the anterosuperior labrum. This was debrided back to the level of stable tissue. We now released traction and moved to the far lateral compartment. Using fluoroscopy, we established superior and inferior portals. We made a small window in the IT band directly over the trochanteric bursa. In this way we lengthened the iliotibial band alleviate the inflammation from her visible iliotibial band syndrome. We anesthetized the bursa under fluoroscopy with 10cc of lidocaine 1% with epinephrine. We introduced the shaver and removed the inflammed and hypertrophic trochanteric bursa. The abductor tendons were visualized, and were intact. At this point all instruments were removed and the hip was drained of fluid. The portal incisions were closed using simple nylon sutures. A sterile dry dressing was applied. Patient was then awakened and extubated and brought back to the PACU in stable condition. I was present scrubbed and actively participating through all ulrich portions of the surgery. Estimated blood loss: Minimal Complications: None Disposition: To the PACU in stable condition Postoperative plan: I will see them back in 10 to 14 days time for suture removal and initiation of physical therapy Complications: None; patient tolerated the procedure well. Disposition: PACU - hemodynamically stable. Condition: stable Maury Soliman Normal [facility] POCT GLUCOSE METER UNSOLICIT ED RESULTSon 08-18-2024 Glucose [Mass/Vol] 99 mg/dL Normal 70-105 [facility] Comment on above: Order Comment: Waive d Testing in the ED is performed under the ED CLIA certificate #[id number]. Result Comment: [facility] eman Performed By: #### L [id number] ####[facility] (BEAKER[address] [place] [address] Behavioral Health Telemedici mobeetie 08-15-2024 Behavioral Health Telemedicine [id number] Oswald Cox 1995 F Date Provider Department Center 08/15/2024 Trini-[facility] IV[facility] Family History Problem Relation Age of Onset Diabetes Father Diabetes Maternal Grandmother Cancer Father's Sister Cancer Father's Sister Family Status - Relation Status Age at Father Maternal Grandmother Father's Sister Father's Sister Level of Service:42888 [place] OFFICE/OUTPATIENT ESTABLISHED MOD MDM 30 MIN Normal [facility] Labon 08-10-2024 Lab [id number] Oswald Cox 1995 F Date Provider Department Center 08/10/2024 2244-[facility] MP LAB RESOURCE MP DRAW Medical Pavi Family History Problem Relation Age of Onset Diabetes Father Diabetes Maternal Grandmother Cancer Father's Sister Cancer Father's Sister Family Status - Relation Status Age at Father Maternal Grandmother Father's Sister Father's Sister Normal [facility] MRSA/MSSA DNA NASALon 2024 MRSA DNA Negative Normal Negative [facility] Comment on above: Order Comment: Testi ng methodology is an automated qualitative in vitro diagnostic test for the directdetection and differentiation of Staphylococcus aureus (SA) DNA and methicillin-resistant Staphylococcus aureus (MRSA) DNA from nasal swabs in patients at risk for nasal colonization. The test utilizes real-time polymerase chain reaction (PCR) for the amplification of MRSA/SA DNA and fluorogenic target-specific hybridization probes for the detection of the amplified DNA. A negative result does not preclude nasal colonization. Performed By: #### L [id number] ####[facility] (BEAKER)[address] [place] [address] MSSA DNA Negative Normal Negative [facility] Comment on above: Order Comment: Testi ng methodology is an automated qualitative in vitro diagnostic test for the directdetection and differentiation of Staphylococcus aureus (SA) DNA and methicillin-resistant Staphylococcus aureus (MRSA) DNA from nasal swabs in patients at risk for nasal colonization. The test utilizes real-time polymerase chain reaction (PCR) for the amplification of MRSA/SA DNA and fluorogenic target-specific hybridization probes for the detection of the amplified DNA. A negative result does not preclude nasal colonization. Performed By: #### L [id number] ####[facility] (BEAKER)[address] [place] [address] 36on 08-04-2024 36 Lvm to call back abo ut questions [facility] 36 Patient has another surgery scheduled after her upcoming surgery with Dr. Soliman and would like to know the recovery process for this one. Patient number [phone] [facility] Clinical Supporton 5 Clinical Support [id number] Oswald Cox 1995 F Date Provider Department Center 07/18/2024 JOSEPH LANCASTER [facility] Family History Problem Relation Age of Onset Diabetes Father Diabetes Maternal Grandmother Cancer Father's Sister Cancer Father's Sister Family Status - Relation Status Age at Father Maternal Grandmother Father's Sister Father's Sister Level of Service:45954 [place] OFFICE/OUTPATIENT ESTABLISHED MOD MDM 30 MIN Reason for Visit and Comments: Med Management [[id number]] [facility] Office Visiton 06-10-2024 Follow-up visit [id number] Oswald Cox 1995 F Date Provider Department Center 06/10/2024 JSOEPH LANCASTER [facility] Family History Problem Relation Age of Onset Diabetes Father Diabetes Maternal Grandmother Cancer Father's Sister Cancer Father's Sister Family Status - Relation Status Age at Father Maternal Grandmother Father's Sister Father's Sister Level of Service:76631 [place] PSYCHIATRIC DIAGNOSTIC EVAL W/MEDICAL SERVICES Reason for Visit and Comments: Psychiatric Evaluation [094598] Normal [facility] CBC AND AUTO DIFFon 06-09-20 ABSOLUTE BASOPHIL 0.0 X10E9/L Normal 0.0-0.2 [facility] Comment on above: Performed By: #### Vickey CRISOSTOMO CMP, 66036-8 #### [facility] ([id number]) [address], [address] [place] [address] ABSOLUTE NEUTROPHIL 6.9 X10E9/L High 1.5-6.6 [facility] Comment on above: Performed By: #### Vickey CRISOSTOMO CMP, 06390-8 #### [facility] ([id number]) [address], [address] [place] [address] Basophils/100 WBC (Bld) 0.2 % Normal [facility] Comment on above: Performed By: #### Vickey CRISOSTOMO CMP, 77428-1 #### [facility] ([id number]) [address], [address] [place] [address] Eosinophils (Bld) [#/Vol] 0.2 10*3/uL Normal 0.0-0.4 [facility] Comment on above: Performed By: #### Vickey CRISOSTOMO CMP, 42154-1 #### [facility] ([id number]) [address], [address] [place] [address] Eosinophils/100 WBC (Bld) 2.2 % Normal [facility] Comment on above: Performed By: #### Vickey CRISOSTOMO CMP, 37533-0 #### [facility] ([id number]) [address] [place] [address] Erythrocyte distribution width (RBC) [Ratio] 12.7 % Normal 11.5-15.0 [facility] Comment on above: Performed By: #### Vickey CRISOSTOMO CMP, 04278-2 #### [facility] ([id number]) [address] [place] [address] Hematocrit (Bld) [Volume fraction] 41.3 % Normal 35-47 [facility] Comment on above: Performed By: #### Vickey CRISOSTOMO, KIERRA, 09696-2 #### [facility] ([id number]) [address] [place] [address] Hemoglobin (Bld) [Mass/Vol] 13.8 g/dL Normal 11.7-15.5 [facility] Comment on above: Performed By: #### Vickey CRISOSTOMO, CMP, 14973-1 #### [facility] ([id number]) [address] [place] [address] Lymphocytes (Bld) [#/Vol] 2.4 10*3/uL Normal 1.0-3.5 [facility] Comment on above: Performed By: #### Vickey CRISOSTOMO, CMP, 50090-1 #### [facility] ([id number]) [address] [address] Lymphocytes/100 WBC (Bld) 23.6 % Normal [facility] Comment on above: Performed By: #### Vickey CRISOSTOMO, CMP, 29670-0 #### [facility] ([id number]) [address] [place] [address] MCH (RBC) [Entitic mass] 28.6 pg Normal 27-34 [facility] Comment on above: Performed By: #### Vickey CRISOSTOMO, CMP, 20976-1 #### [facility] ([id number]) [address] [place] [address] MCHC (RBC) [Mass/Vol] 33.5 g/dL Normal 32-36 [facility] Comment on above: Performed By: #### Vickey CRISOSTOMO CMP, 39791-8 #### [facility] ([id number]) [address] [place] [address] MCV (RBC) [Entitic vol] 85 fL Normal 80-100 [facility] Comment on above: Performed By: #### Vickey CRISOSTOMO CMP, 57647-6 #### [facility] ([id number]) [address] [place] [address] Monocytes (Bld) [#/Vol] 0.5 10*3/uL Normal 0-0.9 [facility] Comment on above: Performed By: #### Vickey CRISOSTOMO CMP, 03709-4 #### [facility] ([id number]) [address] [place] [address] Monocytes/100 WBC (Bld) 4.9 % Normal [facility] Comment on above: Performed By: #### Vickey CRISOSTOMO CMP, 66184-9 #### [facility] ([id number]) [address] [place] [address] Neutrophils/100 WBC (Bld) 69.1 % Normal [facility] Comment on above: Performed By: #### Vickey CRISOSTOMO CMP, 83506-6 #### [facility] ([id number]) [address] [place] [address] Platelet mean volume (Bld) [Entitic vol] 8.7 fL Normal 7-12 [facility] Comment on above: Performed By: #### Vickey CRISOSTOMO CMP, 33783-0 #### [facility] ([id number]) [address], [address] [place] [address] Platelets (Bld) [#/Vol] 306 10*3/uL Normal 150-450 [facility] Comment on above: Performed By: #### Vickey CRISOSTOMO CMP, 18391-5 #### [facility] ([id number]) [address], [address] [place] [address] RBC COUNT 4.85 X10E12/L Normal 3.80-5.20 [facility] Comment on above: Performed By: #### Vickey CRISOSTOMO CMP, 37519-0 #### [facility] ([id number]) [address], [address] [place] [address] WBC (Bld) [#/Vol] 10.0 10*3/uL Normal 4.0-11.0 [facility] Comment on above: Performed By: #### Vickey CRISOSTOMO CMP, 27295-5 #### [facility] ([id number]) [address], [address] [place] [address] CBC auto differentialon 12-0 Basophils (Bld) [#/Vol] 0 10*3/uL [facility] Basophils/100 WBC (Bld) 0.2 % [facility] Eosinophils (Bld) [#/Vol] 0.2 10*3/uL [facility] Eosinophils/100 WBC (Bld) 2.2 % [facility] Erythrocyte distribution width (RBC) [Ratio] 12.7 % 11.5 - 15.0 % [facility] Hematocrit (Bld) [Volume fraction] 41.3 % 35 - 47 % [facility] Hemoglobin (Bld) [Mass/Vol] 13.8 g/dL 11.7 - 15.5 g/dL [facility] Interpretation and review of laboratory results Abnormal [facility] Lymphocytes (Bld) [#/Vol] 2.4 10*3/uL [facility] Lymphocytes/100 WBC (Bld) 23.6 % [facility] MCH (RBC) [Entitic mass] 28.6 pg 27 - 34 pg [facility] MCHC (RBC) [Mass/Vol] 33.5 g/dL 32 - 3 6 g/dL [facility] MCV (RBC) [Entitic vol] 85 fL 80 - 100 fL [facility] Monocytes (Bld) [#/Vol] 0.5 10*3/uL [facility] Monocytes/100 WBC (Bld) 4.9 % [facility] Neutrophils (Bld) [#/Vol] 6.9 10*3/uL High [facility] Neutrophils/100 WBC (Bld) 69.1 % [facility] Platelet mean volume (Bld) [Entitic vol] 8.7 fL 7 - 12 fL [facility] Platelets (Bld) [#/Vol] 306 10*3/uL [facility] RBC (Bld) [#/Vol] 4.85 10*6/uL [facility] WBC corrected for nucl RBC Auto (Bld) [#/Vol] 10 [facility] COMPREHENSIVE METABOLIC PANE Julián 06-09-2024 Albumin [Mass/Vol] 4.2 g/dL Normal 3.2-5.3 [facility] Comment on above: Performed By: #### C BCA, CMP, 22908-0 #### [facility] ([id number]) [address], [address] [place] [address] ALP [Catalytic activity/Vol] 75 U/L Normal 39-130 [facility] Comment on above: Performed By: #### C BCA, CMP, 70748-3 #### [facility] ([id number]) [address], [address] [place] [address] ALT [Catalytic activity/Vol] 24 U/L Normal 0-31 [facility] Comment on above: Performed By: #### C BCA, CMP, 83250-0 #### [facility] ([id number]) [address], [address] [place] [address] Anion gap [Moles/Vol] 4 mmol/L Low 5-15 [facility] Comment on above: Performed By: #### C BCA, CMP, 91413-7 #### [facility] ([id number]) [address], [address] [place] [address] AST [Catalytic activity/Vol] 18 U/L Normal 0-41 [facility] Comment on above: Performed By: #### C BCA CMP, 99193-2 #### [facility] ([id number]) [address], [address] [place] [address] Bilirubin [Mass/Vol] 0.8 mg/dL Normal 0.3-1.2 [facility] Comment on above: Performed By: #### C BCA, CMP, 25088-0 #### [facility] ([id number]) [address] [place] [address] Calcium [Mass/Vol] 9.5 mg/dL Normal 8.5-10.5 [facility] Comment on above: Performed By: #### C KRANTHI, CMP, 52969-9 #### [facility] ([id number]) [address] [place] [address] Chloride [Moles/Vol] 103 mmol/L Normal 98-109 [facility] Comment on above: Performed By: #### C BCA, CMP, 37820-5 #### [facility] ([id number]) [address] [place] [address] CO2 [Moles/Vol] 32 mmol/L Normal 22-32 [facility] Comment on above: Performed By: #### C BCA, CMP, 47469-5 #### [facility] ([id number]) [address] [place] [address] Creatinine [Mass/Vol] 0.65 mg/dL Normal 0.40-1.00 [facility] Comment on above: Result Comment: METH OD TRACEABLE TO IDMS STANDARD Performed By: #### C BCA, CMP, 23206-2 #### [facility] ([id number]) [address], [address] [place] [address] eGFR (CKD-EPI) NON-RACE DEPENDENT >90 Normal >59 [facility] Comment on above: Result Comment: Reported eGFR is based on the CKD-EPI 2020 equation that does not use a race coefficient. Performed By: #### C KIERRA CRISOSTOMO, 18343-0 #### [facility] ([id number]) [address], [address] [place] [address] Glucose [Mass/Vol] 82 mg/dL Normal 65-99 [facility] Comment on above: Performed By: #### C KIERRA CRISOSTOMO, 16784-7 #### [facility] ([id number]) [address] [address] [place] [address] Potassium [Moles/Vol] 4.2 mmol/L Normal 3.5-5.0 [facility] Comment on above: Performed By: #### C KIERRA CRISOSTOMO, 30053-6 #### [facility] ([id number]) [address], [address] [place] [address] Protein [Mass/Vol] 7.5 g/dL Normal 6.0-8.0 [facility] Comment on above: Performed By: #### C KIERRA CRISOSTOMO, 54452-1 #### [facility] ([id number]) [address], [address] [place] [address] Sodium [Moles/Vol] 139 mmol/L Normal 134-146 [facility] Comment on above: Performed By: #### C KRANTHI CMP, 79164-1 #### [facility] ([id number]) [address] [address] [place] [address] Urea nitrogen [Mass/Vol] 13 mg/dL Normal 5-23 [facility] Comment on above: Performed By: #### C BCA, CMP, 23963-0 #### [facility] ([id number]) [address] [place] [address] Comprehensive metabolic pane julián 06-09-2024 Albumin [Mass/Vol] 4.2 g/dL 3.2 - 5.3 g/dL [facility] ALP [Catalytic activity/Vol] 75 U/L 39 - 130 U/L [facility] ALT No additional P-5'-P [Catalytic activity/Vol] 24 U/L 0 - 31 U/L [facility] Anion gap [Moles/Vol] 4 mmol/L Low 5 - 15 mmol/L [facility] AST [Catalytic activity/Vol] 18 U/L 0 - 41 U/L [facility] Bilirubin [Mass/Vol] 0.8 mg/dL 0.3 - 1 .2 mg/dL [facility] Calcium [Mass/Vol] 9.5 mg/dL 8.5 - 10. 5 mg/dL [facility] Chloride [Moles/Vol] 103 mmol/L 98 - 10 9 mmol/L [facility] CO2 [Moles/Vol] 32 mmol/L 22 - 32 mmol/L [facility] Creatinine [Mass/Vol] 0.65 mg/dL 0.40 - 1.00 mg/dL [facility] Comment on above: METHOD TRACEABLE TO [facility] STANDARD eGFR (CKD-EPI)non-race dependent - PINF [facility] Comment on above: Reported eGFR is based on the CKD-EPI 2020 equation that does not use a race coefficient. Glucose [Mass/Vol] 82 mg/dL 65 - 99 mg/dL [facility] Interpretation and review of laboratory results Abnormal [facility] Potassium [Moles/Vol] 4.2 mmol/L 3.5 - 5.0 mmol/L [facility] Protein [Mass/Vol] 7.5 g/dL 6.0 - 8.0 g/dL [facility] Sodium [Moles/Vol] 139 mmol/L 134 - 146 mmol/L [facility] Urea nitrogen [Mass/Vol] 13 mg/dL 5 - 23 mg/dL [facility] Lipid 1996 panelon Cholesterol [Mass/Vol] 191 mg/dL 150 - 200 mg/dL [facility] Cholesterol in HDL [Mass/Vol] 43 mg/dL 39 - PINF mg/dL [facility] Comment on above: HDL <40 mg/dL - High Risk HDL > or = 40mg/dL- Desirable HDL >60 mg/dL - Negative Risk Cholesterol in LDL [Mass/Vol] 120 mg/dL NINF - 130 mg/dL [facility] Comment on above: LDL <100 mg/dL - Desirable LDL >160 mg/dL - High Risk Cholesterol in VLDL [Mass/Vol] 28 mg/dL 0 - 30 mg/dL [facility] Cholesterol.total/Cho lesterol in HDL [Mass ratio] 4.4 {ratio} 1.0 - 5.0 [facility] Triglyceride [Mass/Vol] 142 mg/dL 27 - 150 mg/dL [facility] Cholesterol [Mass/Vol] 191 mg/dL Normal 150-200 [facility] Comment on above: Performed By: #### Vickey CRISOSTOMO, [facility], 16807-9 #### [facility] ([id number]) [address] [place] [address], [facility] [address] [place] [address] Cholesterol in HDL [Mass/Vol] 43 mg/dL Normal >39 [facility] Comment on above: Result Comment: HDL <40 mg/dL - High Risk HDL > or = 40mg/dL- Desirable HDL >60 mg/dL - Negative Risk Performed By: #### Vickey CRISOSTOMO, [facility], 52802-2 #### [facility] ([id number]) [address] [place] [address], [address] [place] [address] Cholesterol in LDL [Mass/Vol] 120 mg/dL Normal <130 [facility] Comment on above: Result Comment: LDL <100 mg/dL - Desirable LDL >160 mg/dL - High Risk Performed By: #### C BCA, CMP, 73184-5 #### [facility] ([id number]) [address], [address] [place] [address] Cholesterol in VLDL [Mass/Vol] 28 mg/dL Normal 0-30 [facility] Comment on above: Performed By: #### C BCA, CMP, 93038-3 #### [facility] ([id number]) [address], [facility] [address] [place] [address] CHOLESTEROL:HDL 4.4 Normal 1.0-5.0 [facility] Comment on above: Performed By: #### C BCA, CMP, 24378-8 #### [facility] ([id number]) [address], [address] [place] [address] Triglyceride [Mass/Vol] 142 mg/dL Normal 27-150 [facility] Comment on above: Performed By: #### C BCA, CMP, 29956-8 #### [facility] ([id number]) [address] [place] [address] No Panel Informationon 06-09 [facility] Office Visiton 05-30-2024 Follow-up visit [id number] Oswald Cox 1995 F Date Provider Department Center 05/30/2024 MAURY العلي MP [facility] Family History Problem Relation Age of Onset Diabetes Father Diabetes Maternal Grandmother Cancer Father's Sister Cancer Father's Sister Family Status - Relation Status Age at Father Maternal Grandmother Father's Sister Father's Sister Level of Service:07097 [place] OFFICE/OUTPATIENT NEW MODERATE MDM 45 MINUTES (GC) Reason for Visit and Comments: Pain [136] Normal [facility] CT CHEST LOW DOSE (LDCT)on 07-27-2023 CT CHEST LOW DOSE (LDCT) EXAMINATION: LOW DOSE OF THE CT CHEST WITHOUT CONTRAST 05/27/2024 8:17 am TECHNIQUE: Low Dose of the CT Chest without the administration of intravenous contrast (MA=40). Multiplanar reformatted images are provided for review. Automated exposure control, iterative reconstruction, and/or weight based adjustment of the mA/kV was utilized to reduce the radiation dose to as low as reasonably achievable. COMPARISON: June 23, 2023 HISTORY: ORDERING SYSTEM PROVIDED HISTORY: Multiple lung nodules on ELECT[employer]ICAL [employer]ES[employer] PROVIDED HISTORY: Is the patient ?->No Reason for Exam: mult dalila nodule follow up FINDINGS: Mediastinum: Thoracic aorta normal in course and caliber. No enlarged mediastinal or hilar lymph nodes by imaging size criteria. Heart size within normal limits. Lungs/Pleura: No consolidation, pneumothorax or pleural effusion. Central airways are patent. Unchanged grouping of nodules in the right upper lobe. No new or suspicious pulmonary nodule. Upper Abdomen: Limited visualization upper abdomen demonstrates no acute findings. Soft Tissues/Bones: Spinal degenerative changes with no acute findings. IMPRESSION: Stable right upper lobe nodules. No new or suspicious nodule. LUNG RADS: Lung-RADS 2 - Benign (v2022) Management: 12 month screening LDCT Interpreted by: Don Yepez DO Signed by: Don Yepez DO 05/27/24 Final result Normal [facility] Stable right upper l obe nodules. No new or suspicious nodule. LUNG RADS: Lung-RADS 2 - Benign (v2022) Management: 12 month screening LDCT [facility] RIS CONSOLIDATED EXAMINATION: LOW DOSE OF THE CT CHEST WITHOUT CONTRAST 05/27/2024 8:17 am TECHNIQUE: Low Dose of the CT Chest without the administration of intravenous contrast (MA=40). Multiplanar reformatted images are provided for review. Automated exposure control, iterative reconstruction, and/or weight based adjustment of the mA/kV was utilized to reduce the radiation dose to as low as reasonably achievable. COMPARISON: June 23, 2023 HISTORY: ORDERING SYSTEM PROVIDED HISTORY: Multiple lung nodules on E[employer] PROVIDED HISTORY: Is the patient ?->No Reason for Exam: mult dalila nodule follow up FINDINGS: Mediastinum: Thoracic aorta normal in course and caliber. No enlarged mediastinal or hilar lymph nodes by imaging size criteria. Heart size within normal limits. Lungs/Pleura: No consolidation, pneumothorax or pleural effusion. Central airways are patent. Unchanged grouping of nodules in the right upper lobe. No new or suspicious pulmonary nodule. Upper Abdomen: Limited visualization upper abdomen demonstrates no acute findings. Soft Tissues/Bones: Spinal degenerative changes with no acute findings. PN RIS CONSOLIDATED Don Yepez, DO - 05/27/2024 EXAMINATION: LOW DOSE OF THE CT CHEST WITHOUT CONTRAST 05/27/2024 8:17 am TECHNIQUE: Low Dose of the CT Chest without the administration of intravenous contrast (MA=40). Multiplanar reformatted images are provided for review. Automated exposure control, iterative reconstruction, and/or weight based adjustment of the mA/kV was utilized to reduce the radiation dose to as low as reasonably achievable. COMPARISON: June 23, 2023 HISTORY: ORDERING SYSTEM PROVIDED HISTORY: Multiple lung nodules on [employer] PROVIDED HISTORY: Is the patient ?->No Reason for Exam: mult dalila nodule follow up FINDINGS: Mediastinum: Thoracic aorta normal in course and caliber. No enlarged mediastinal or hilar lymph nodes by imaging size criteria. Heart size within normal limits. Lungs/Pleura: No consolidation, pneumothorax or pleural effusion. Central airways are patent. Unchanged grouping of nodules in the right upper lobe. No new or suspicious pulmonary nodule. Upper Abdomen: Limited visualization upper abdomen demonstrates no acute findings. Soft Tissues/Bones: Spinal degenerative changes with no acute findings. IMPRESSION: Stable right upper lobe nodules. No new or suspicious nodule. LUNG RADS: Lung-RADS 2 - Benign (v2022) Management: 12 month screening LDCT [facility] Radiology Study observation (narrative) [facility] CT CHEST LOW DOSE (LDCT)Orde red By: Don Yepez on 05-27-2024 [facility] Work Phone: 36on 05-06-2024 36 Patient called to schedule a new patient appointment with our office. Patient wants to be seen for: right hip Patient had MRI done at [facility] Patient has Not had any surgery or procedures on this body part Patient has not been seen by any other orthopaedic surgeons for this issue This appointment IS NOT related to a work related injury Normal [facility] CT BRAIN WO CONTon CT BRAIN WO CONT CT BRAIN WO CONT CLINICAL INFORMATION: Headache, new or worsening, neuro deficit (Age 18-49y). TECHNIQUE: CT head without contrast. All CT scans at this facility use dose modulation, iterative reconstruction, and/or weight based dosing when appropriate to reduce radiation dose to as low as reasonably achievable. COMPARISON: None. FINDINGS: The osseous structures of the calvarium and skull base are intact. No acute hemorrhage. No intracranial mass effect. Panda-white differentiation is maintained. Ventricular size is within normal limits. There are no extra-axial fluid collections. The visible orbital contents, paranasal sinuses, and infratemporal soft tissues are within normal limits. IMPRESSION: * No acute intracranial findings. Approved by Resident German Troy DO on 03/01/2024 4:25 PM ITanvir MD have personally reviewed the image(s) and agree with and/or edited the report Finalized by Tanvir Hernandez MD on 03/01/2024 4:33 PM Normal [facility] INFLUENZA A/INFLUENZA Bon FLUAV and FLUBV RNA ANALY+probe Nom (Unsp spec) INFLUENZA A Negative (qualifier value) INFLUENZA B Negative (qualifier value) NOTE The [employer] Influenza A and B2 assay performed on the [employer] instrument is a rapid molecular in vitro diagnostic test utilizing an isothermal nucleic acid amplification technology for the qualitative detection and discrimination of influenza A and B viral RNA in direct nasopharyngeal swabs from patients with signs and symptoms of respiratory infection and epidemiological risk factors. Normal [facility] Comment on above: Performed By: #### 4 8509-4 #### [facility] ([id number]) [address] [place] [address] SARS CoV2 by NAAT/Molecularo n 03-01-2024 SARS-CoV-2 (COVID-19) RdRp gene ANALY+probe Ql (Resp) SARS CoV 2 Negative (qualifier value) NOTE ID NOW COVID-19 assay performed on the [employer] Instrument is a rapid molecular in vitro diagnostic test utilizing an isothermal nucleic acid amplification technology intended for the qualitative detection of nucleic acid from the SARS-CoV-2 viral RNA in direct nasal, nasopharyngeal or throat swabs from individuals who are suspected of COVID-19 by their healthcare provider. This test has not been evaluated on asymptomatic patients. Results are for the identification of SARS-CoV-2 RNA. The [id number] is generally detectable in respiratory samples during the acute phase of infection. Positive results are indicative of the presence of SARS-CoV-2 RNA; clinical correlation with patient history and other diagnostic information is necessary to determine patient infection status. Positive results do not rule out bacterial infection or co-infection with other viruses. Testing facilities within the [facility] and its territories are required to report all positive results to the appropriate public health authorities. Negative results should be treated as presumptive and, if inconsistent with clinical signs and symptoms or necessary for patient management, should be tested with different authorized or cleared molecular tests. Negative results do not preclude SARS-CoV-2 infection and should not be used as the sole basis for patient management decisions. Negative results should be considered in the context of a patient's recent exposures, history and the presence of clinical signs and symptoms consistent with COVID-19. The ID NOW COVID-19 test is intended for use by medical records specialist or trained operators who are proficient in performing tests using the ID NOW Instrument. The ID NOW COVID-19 test is only for use under the Food and Drug Administration's Emergency Use Authorization. Fact Sheet for Healthcare Providers: https://www.fda.gov/medi a/955353/download Fact Sheet for Patients: https://www.fda.gov/medi a/354166/download Normal [facility] Comment on above: Performed By: #### 9 4534-5 #### [facility] ([id number]) [address] [place], [place] [id number] URN MACROSCOPIC NURon 2023 BILIRUBIN ALICIA Negative Normal NEG [facility] Comment on above: Performed By: #### N UM #### [facility] ([id number]) [address] [place] [address] BLOOD/HGB ALICIA Negative Normal NEG [facility] Comment on above: Performed By: #### N UM #### [facility] ([id number]) [address] [place] [address] GLUCOSE ALICIA Negative Normal NEG [facility] Comment on above: Performed By: #### N UM #### [facility] ([id number]) [address] [place] [address] KETONES ALICIA Negative Normal NEG [facility] Comment on above: Performed By: #### N UM #### [facility] ([id number]) [address] [place] [address] LEUKOCYTE ESTERASE ALICIA Negative Normal NEG [facility] Comment on above: Performed By: #### N UM #### [facility] ([id number]) [address] [place] [address] NITRITE ALICIA Negative Normal NEG [facility] Comment on above: Performed By: #### N UM #### [facility] ([id number]) [address] [place] [address] PH ALICIA 5.5 Normal 5.0-8.5 [facility] Comment on above: Performed By: #### N UM #### [facility] ([id number]) [address] [place] [address] PROTEIN ALICIA Negative Normal NEG [facility] Comment on above: Performed By: #### N UM #### [facility] ([id number]) [address] [place] [address] SPECIFIC GRAVITY ALICIA >=1.030 Normal 1.003-1.035 [facility] Comment on above: Performed By: #### N UM #### [facility] ([id number]) [address] [place] [address] UROBILINOGEN ALICIA 0.2 eu/dL Normal <1.[address] [facility] Comment on above: Performed By: #### N UM #### [facility] ([id number]) [address] [place] [address] Laboratory - Chemistry and C hemistry - challengeon 02-05-2024 25-hydroxyvitamin D [Mass/Vol] 26.2 ng/mL Low (30.0-100.0 ) [facility] Comment on above: Note: Vitamin D defi ciency has been defined by the [place] and an Endocrine Society practice guideline as alevel of serum 25-OH vitamin D less than 20 ng/mL (1,2).The Endocrine Society went on to further define vitamin Dinsufficiency as a level between 21 and 29 ng/mL (2).1. IOM ([place] of [employer]). 2010. Dietary reference intakes for calcium and D. [place]: The National Academies Press.2. Lisa MF, Renée GRIMES, Naresh NORMAN, et al. Evaluation, treatment, and prevention of vitamin D deficiency: an Endocrine Society clinical practice guideline. JCEM. 2010; 96(7):1911-30. CRP [Mass/Vol] 11 mg/L High (0-10 ) [facility] Urate [Mass/Vol] 5.8 mg/dL (2.6-6.2 ) [facility] Comment on above: Note: Therapeutic ta rget for gout patients: <6.0 Laboratory - Hematology and Cell countson 02-05-2024 Basophils (Bld) [#/Vol] 0.0 10*3/uL (0.0-0.2 ) [facility] Basophils/100 WBC (Bld) 0 % (Not Estab. ) [facility] Eosinophils (Bld) [#/Vol] 0.2 10*3/uL (0.0-0.4 ) [facility] Eosinophils/100 WBC (Bld) 1 % (Not Estab. ) [facility] Erythrocyte distribution width (RBC) [Ratio] 12.3 % (11.7-15.4 ) [facility] ESR (Bld) [Velocity] 10 mm/h (0-32 ) [facility] Hematocrit (Bld) [Volume fraction] 44.8 % (34.0-46.6 ) [facility] Hemoglobin (Bld) [Mass/Vol] 14.4 g/dL (11.1-15.9 ) [facility] Immature granulocytes (Bld) [#/Vol] 0.0 10*3/uL (0.0-0.1 ) [facility] Immature granulocytes/100 WBC (Bld) 0 % (Not Estab. ) [facility] Lymphocytes (Bld) [#/Vol] 2.7 10*3/uL (0.7-3.1 ) [facility] Lymphocytes/100 WBC (Bld) 21 % (Not Estab. ) [facility] MCH (RBC) [Entitic mass] 28.6 pg (26.6-33.0 ) [facility] MCHC (RBC) [Mass/Vol] 32.1 g/dL (31.5- 35.7 ) [facility] MCV (RBC) [Entitic vol] 89 fL (79-97 ) [facility] Monocytes (Bld) [#/Vol] 0.6 10*3/uL (0.1-0.9 ) [facility] Monocytes/100 WBC (Bld) 5 % (Not Estab. ) [facility] Morphology Sheldon (Bld) [Interp] BANK [facility]IS[facility] Neutrophils (Bld) [#/Vol] 9.6 10*3/uL High (1.4-7.0 ) [facility] Neutrophils/100 WBC (Bld) 73 % (Not Estab. ) [facility] Nucleated RBC/100 WBC (Bld) [Ratio] [facility] Platelets (Bld) [#/Vol] 377 10*3/uL (150-450 ) [facility] RBC (Bld) [#/Vol] 5.04 10*6/uL (3.77-5.28 ) [facility] WBC (Bld) [#/Vol] 13.2 10*3/uL High (3.4-10.8 ) [facility] Laboratory - Serology - non- microon 02-05-2024 Cyclic citrullinated peptide IgA+IgG IA Qn 5 units (0-19 ) [facility] Comment on above: Note: Negative <20 W eak positive 20 - 39 Moderate positive 40 - 59 Strong positive >59 Nuclear Ab IF (S) [Titer] Negative [facility] Comment on above: Note: Negative <1:80 Borderline 1:80 Positive >1:80ICAP nomenclature: AC-0For more information about Hep-2 cell patterns useANApatterns.org, the official website for theInternational Consensus on Antinuclear Antibody (FLIP)Patterns (ICAP). Rheumatoid factor Qn [IU]/mL (<14.0 ) [facility] No Panel Informationon 02-04 Immature Cells [facility] Reported Physicians See Note [facility] Comment on above: Note: Reported Physi cians:Ordering: Yohan James XR FOOT LEFT (MIN 3 VIEWS)on 01-05-2024 XR FOOT LEFT (MIN 3 VIEWS) EXAMINATION: THREE XRAY VIEWS OF THE LEFT FOOT 01/04/2024 11:39 am COMPARISON: None. HISTORY: ORDERING SYSTEM PROVIDED HISTORY: Pain FINDINGS: The bone mineralization is within normal limits. The joint spaces appear unremarkable. No acute fractures or dislocations are seen. There is no soft tissue swelling. No bony erosions are seen. There are calcaneal spurs at the insertion sites of the plantar fascia and Achilles tendon. IMPRESSION: No acute abnormality involving the left foot. Interpreted by: Gene Estrella MD Signed by: Gene Estrella MD 01/05/24 Final result Normal [facility] XR Foot - left 3 Viewson No acute abnormality involving the left foot. [facility] RIS CONSOLIDATED EXAMINATION: THREE XRAY VIEWS OF THE LEFT FOOT 01/04/2024 11:39 am COMPARISON: None. HISTORY: ORDERING SYSTEM PROVIDED HISTORY: Pain FINDINGS: The bone mineralization is within normal limits. The joint spaces appear unremarkable. No acute fractures or dislocations are seen. There is no soft tissue swelling. No bony erosions are seen. There are calcaneal spurs at the insertion sites of the plantar fascia and Achilles tendon. [facility] RIS CONSOLIDATED Gene Estrella MD - 01/05/2024 EXAMINATION: THREE XRAY VIEWS OF THE LEFT FOOT 01/04/2024 11:39 am COMPARISON: None. HISTORY: ORDERING SYSTEM PROVIDED HISTORY: Pain FINDINGS: The bone mineralization is within normal limits. The joint spaces appear unremarkable. No acute fractures or dislocations are seen. There is no soft tissue swelling. No bony erosions are seen. There are calcaneal spurs at the insertion sites of the plantar fascia and Achilles tendon. IMPRESSION: No acute abnormality involving the left foot. [facility] XR Foot - left 3 ViewsOrdere d By: Gene Estrella on 01-05-2024 [facility] Work Phone: XR Foot - left 3 Viewson Radiology Study observation (narrative) [facility] Glucose,Whole Bloodon 2023 Glucose [Mass/Vol] 82 mg/dL Normal 65-99 [facility] Basic Metabolic Profon 10-13 Anion gap [Moles/Vol] 12 mmol/L Normal 9-17 [facility] Comment on above: Performed By: #### C DP, BMP ####[address] [place] [address] Lab Director: Maury Fuller MD BUN/CRE Ratio 13 Normal 9-20 [facility] Comment on above: Performed By: #### C DP, BMP ####[address] , [place] [id number] Lab Director: Maury Fuller MD Calcium [Mass/Vol] 9.8 mg/dL Normal 8.6-10.4 [facility] Comment on above: Performed By: #### C DP, BMP ####[address] , [place] [id number] Lab Director: Maury Fuller MD Chloride [Moles/Vol] 103 mmol/L Normal 98-107 [facility] Comment on above: Performed By: #### C DP, BMP ####[address] [place] [address] Lab Director: Maury Fuller MD CO2 [Moles/Vol] 26 mmol/L Normal 20-31 [facility] Comment on above: Performed By: #### C DP, BMP ####[address] [place] [address] Lab Director: Maury Fuller MD Creatinine [Mass/Vol] 0.7 mg/dL Normal 0.5-0.9 [facility] Comment on above: Performed By: #### C DP, BMP ####[address] , [place] [id number] Lab Director: Maury Fuller MD GFR/1.73 sq M.predicted among non-blacks MDRD (S/P/Bld) [Vol rate/Area] mL/min/{1.73_m2} Normal >60 [facility] Comment on above: Result Comment: These results are not intended for use in patients <18 years of age. eGFR results are calculated without a race factor using the 2020 CKD-EPI equation. Careful clinical correlation is recommended, particularly when comparing to results calculated using previous equations. The CKD-EPI equation is less accurate in patients with extremes of muscle mass, extra-renal metabolism of creatine, excessive creatine ingestion, or following therapy that affects renal tubular secretion. Performed By: #### C DP, BMP ####[address] , [place] [id number] Lab Director: Maury Fuller MD Glucose [Mass/Vol] 91 mg/dL Normal 70-99 [facility] Comment on above: Performed By: #### C DP, BMP ####[address] , [place] [id number] Lab Director: Maury Fuller MD Potassium [Moles/Vol] 3.9 mmol/L Normal 3.7-5.3 [facility] Comment on above: Performed By: #### C DP, BMP ####[address] , [place] [phone] Lab Director: Maury Fuller MD Sodium [Moles/Vol] 141 mmol/L Normal 135-144 [facility] Comment on above: Performed By: #### C DP, BMP ####[address] [place] [address] Lab Director: Maury Fuller MD Urea nitrogen [Mass/Vol] 9 mg/dL Normal 6-20 [facility] Comment on above: Performed By: #### C DP, BMP ####[address] , [place] 892[address]83 Lab Director: Maury Fuller MD CBC with Diffon 10-14-2023 Abs. Basophil <0.03 Normal 0.00-0.20 [facility] Comment on above: Performed By: #### C DP, BMP ####[address] , [place] [id number] Lab Director: Maury Fuller MD Abs.Imm.Granulocyte 0.03 k/uL Normal 0.00-0.30 [facility] Comment on above: Performed By: #### C DP, BMP ####[address] , [place] 3937[address] Lab Director: Maury Fuller MD Abs.Neutrophil (Seg) 6.63 k/uL Normal 1.50-8.10 [facility] Comment on above: Performed By: #### C DP, BMP ####[address] , [place] 0954383 Lab Director: Maury Fuller MD Basophils/100 WBC (Bld) 0 % Normal 0-2 [facility] Comment on above: Performed By: #### C DP, BMP ####[address] [place] [address] Lab Director: Maury Fuller MD Eosinophils (Bld) [#/Vol] 0.21 10*3/uL Normal 0.00-0.44 [facility] Comment on above: Performed By: #### C DP, BMP ####[address] , [place] 70[address] Lab Director: Maury Fuller MD Eosinophils/100 WBC (Bld) 2 % Normal 1-4 [facility] Comment on above: Performed By: #### C DP, BMP ####[address] , [place] [address])[phone] Director: Maury Fuller MD Erythrocyte distribution width (RBC) [Ratio] 12.4 % Normal 11.8-14.4 [facility] Comment on above: Performed By: #### C DP, BMP ####[address] [place], [place] [address])[phone] Director: Maury Fuller MD Hematocrit (Bld) [Volume fraction] 42.1 % Normal 36.3-47.1 [facility] Comment on above: Performed By: #### C DP, BMP ####[address] , [place] [address])[phone] Director: Maury Fuller MD Hemoglobin (Bld) [Mass/Vol] 13.8 g/dL Normal 11.9-15.1 [facility] Comment on above: Performed By: #### C DP, BMP ####[address] , [place] [address])[phone] Director: Maury Fuller MD Immature granulocytes/100 WBC (Bld) 0 % Normal 0 [facility] Comment on above: Performed By: #### C DP, BMP ####[address] , [place] [address])[phone] Director: Maury Fuller MD Lymphocytes (Bld) [#/Vol] 1.99 10*3/uL Normal 1.10-3.70 [facility] Comment on above: Performed By: #### C DP, BMP ####[address] [place] [phone] Lab Director: Maury Fuller MD Lymphocytes/100 WBC (Bld) 21 % Low 24-43 [facility] Comment on above: Performed By: #### C DP, BMP ####[address] [place] [address] Lab Director: Maury Fuller MD MCH (RBC) [Entitic mass] 28.3 pg Normal 25.2-33.5 [facility] Comment on above: Performed By: #### C DP, BMP ####[address] , [facility]83[facility])[phone] Director: Maury Fuller MD MCHC (RBC) [Mass/Vol] 32.8 g/dL Normal 28.4-34.8 [facility] Comment on above: Performed By: #### C DP, BMP ####[address] , [facility]32([facility])[phone] Director: Maury Fuller MD MCV (RBC) [Entitic vol] 86.4 fL Normal 82.6-102.9 [facility] Comment on above: Performed By: #### C DP, BMP ####[address] , [facility]83[facility])[phone] Director: Maury Fuller MD Monocytes (Bld) [#/Vol] 0.58 10*3/uL Normal 0.10-1.20 [facility] Comment on above: Performed By: #### C DP, BMP ####[address] , [facility]83[facility])[phone] Director: Maury Fuller MD Monocytes/100 WBC (Bld) 6 % Normal 3-12 [facility] Comment on above: Performed By: #### C DP, BMP ####[address] , [facility]83 Lab Director: Maury Fuller MD Neutrophil (Seg) 71 % High 36-65 [facility] Comment on above: Performed By: #### C DP, BMP ####[address] , [facility]83 Lab Director: Maury Fuller MD NRBC Automated 0.0 per 100 WBC Normal 0.0 [facility] Comment on above: Performed By: #### C DP, BMP ####[address] , [place] [phone] Director: Maury Fuller MD Platelet mean volume (Bld) [Entitic vol] 9.9 fL Normal 8.1-13.5 [facility] Comment on above: Performed By: #### C DP, BMP ####[address] , [place] [phone] Director: Maury Fuller MD Platelets (Bld) [#/Vol] 341 10*3/uL Normal 138-453 [facility] Comment on above: Performed By: #### C DP, BMP ####[address] , [place] [address])[phone] Director: Maury Fuller MD RBC (Bld) [#/Vol] 4.87 10*6/uL Normal 3.95-5.11 [facility] Comment on above: Performed By: #### C DP, BMP ####[address] , [facility]8[address])[phone] Director: Maury Fuller MD WBC (Bld) [#/Vol] 9.5 10*3/uL Normal 3.5-11.3 [facility] Comment on above: Performed By: #### C DP, BMP ####[address] , [facility]8[address])[phone] Director: Maury Fuller MD CBC with Diffon 08-02-2023 Abs. Basophil <0.03 Normal 0.00-0.20 [facility] Comment on above: Performed By: #### C P, LIP, CDP ####[address] [place] [address] Lab Director: Maury Fuller MD Abs.Imm.Granulocyte 0.05 k/uL Normal 0.00-0.30 [facility] Comment on above: Performed By: #### C P, LIP, CDP ####[address] , [place] [address])[phone] Director: Maury Fuller MD Abs.Neutrophil (Seg) 13.19 k/uL High 1.50-8.10 [facility] Comment on above: Performed By: #### C P, LIP, CDP ####[address] , [place] [address] Lab Director: Maury Fuller MD Basophils/100 WBC (Bld) 0 % Normal 0-2 [facility] Comment on above: Performed By: #### C P, LIP, CDP ####[address] , [place] [address])[phone] Director: Maury Fuller MD Eosinophils (Bld) [#/Vol] 0.25 10*3/uL Normal 0.00-0.44 [facility] Comment on above: Performed By: #### C P, LIP, CDP ####[address] , [place] [address])[phone] Director: Maury Fuller MD Eosinophils/100 WBC (Bld) 2 % Normal 1-4 [facility] Comment on above: Performed By: #### C P, LIP, CDP ####[address] , [facility]83[facility])[phone] Director: Maury Fuller MD Erythrocyte distribution width (RBC) [Ratio] 12.6 % Normal 11.8-14.4 [facility] Comment on above: Performed By: #### C P, LIP, CDP ####[address] , [facility]83 Lab Director: Maury Fuller MD Hematocrit (Bld) [Volume fraction] 50.4 % High 36.3-47.1 [facility] Comment on above: Performed By: #### C P, LIP, CDP ####[address] , [place] [address] Lab Director: Maury Fuller MD Hemoglobin (Bld) [Mass/Vol] 16.2 g/dL High 11.9-15.1 [facility] Comment on above: Performed By: #### C P, LIP, CDP ####[address] , [place] [address] lab Director: Maury Fuller MD Immature granulocytes/100 WBC (Bld) 0 % Normal 0 [facility] Comment on above: Performed By: #### C P, LIP, CDP ####[address] , [facility]83 lab Director: Maury Fuller MD Lymphocytes (Bld) [#/Vol] 1.21 10*3/uL Normal 1.10-3.70 [facility] Comment on above: Performed By: #### C P, LIP, CDP ####[address] , [place] [address] Lab Director: Maury Fuller MD Lymphocytes/100 WBC (Bld) 8 % Low 24-43 [facility] Comment on above: Performed By: #### C P, LIP, CDP ####[address] , [facility]83 Lab Director: Maury Fuller MD MCH (RBC) [Entitic mass] 27.8 pg Normal 25.2-33.5 [facility] Comment on above: Performed By: #### C P, LIP, CDP ####[address] , [place] [id number] Lab Director: Maury Fuller MD MCHC (RBC) [Mass/Vol] 32.1 g/dL Normal 28.4-34.8 [facility] Comment on above: Performed By: #### C P, LIP, CDP ####[address] , [place] 5210083 Lab Director: Maury Fuller MD MCV (RBC) [Entitic vol] 86.6 fL Normal 82.6-102.9 [facility] Comment on above: Performed By: #### C P, LIP, CDP ####[address] , [facility]83[facility])[phone] Director: Maury Fuller MD Monocytes (Bld) [#/Vol] 0.74 10*3/uL Normal 0.10-1.20 [facility] Comment on above: Performed By: #### C P, LIP, CDP ####[address] , [facility]83 lab Director: Maury Fuller MD Monocytes/100 WBC (Bld) 5 % Normal 3-12 [facility] Comment on above: Performed By: #### C P, LIP, CDP ####[address] , [facility]83[facility])[phone] Director: Maury Fuller MD Neutrophil (Seg) 85 % High 36-65 [facility] Comment on above: Performed By: #### C P, LIP, CDP ####[address] , [facility]83 lab Director: Maury Fuller MD NRBC Automated 0.0 per 100 WBC Normal 0.0 [facility] Comment on above: Performed By: #### C P, LIP, CDP ####[address] , [facility]83 Lab Director: Maury Fuller MD Platelet mean volume (Bld) [Entitic vol] 10.2 fL Normal 8.1-13.5 [facility] Comment on above: Performed By: #### C P, LIP, CDP ####[address] , [place] [id number] Lab Director: Maury Fuller MD Platelets (Bld) [#/Vol] 351 10*3/uL Normal 138-453 [facility] Comment on above: Performed By: #### C P, LIP, CDP ####[facility] [place] , [place] [id number] lab Director: Maury Fuller MD RBC (Bld) [#/Vol] 5.82 10*6/uL High 3.95-5.11 [facility] Comment on above: Performed By: #### C P, LIP, CDP ####[facility] [place] , [place] 5670783 lab Director: Maury Fuller MD WBC (Bld) [#/Vol] 15.5 10*3/uL High 3.5-11.3 [facility] Comment on above: Performed By: #### C P, LIP, CDP ####[address] , [place] [phone] lab Director: Maury Fuller MD CT ABDOMEN PELVIS WO CONTRAS Ton 08-02-2023 CT ABDOMEN PELVIS WO CONTRAST EXAMINATION: CT OF THE ABDOMEN AND PELVIS WITHOUT CONTRAST 08/02/2023 2:10 pm TECHNIQUE: CT of the abdomen and pelvis was performed without the administration of intravenous contrast. Multiplanar reformatted images are provided for review. Automated exposure control, iterative reconstruction, and/or weight based adjustment of the mA/kV was utilized to reduce the radiation dose to as low as reasonably achievable. COMPARISON: 06/12/2022 HISTORY: ORDERING SYSTEM PROVIDED HISTORY: abd pain n/v/d TECHNOLOGIST PROVIDED HISTORY: abd pain n/v/d Decision Support Exception - unselect if not a suspected or confirmed emergency medical condition->Emergency Medical Condition (MA) Is the patient ?->No FINDINGS: Lower Chest: Nonspecific mosaic attenuation the lung bases, which may represent subsegmental atelectasis and/or regional air trapping. Organs: Findings compatible with hepatic steatosis. No inflammatory change identified in the gallbladder fossa. The pancreas, spleen, adrenals and kidneys reveal no acute findings. Mildly hyperdense renal pyramids without discrete stone identified. GI/Bowel: There is no bowel dilatation or wall thickening identified. No evidence for acute appendicitis. Nonspecific mild amount of liquid stool burden. Pelvis: No acute findings. Peritoneum/Retroperitone um: No free air or free fluid. The aorta is normal in caliber. The visceral branches are patent. No lymphadenopathy. Bones/Soft Tissues: No abnormality identified. *Unless otherwise specified, incidental findings do not require dedicated imaging follow-up. IMPRESSION: Findings suggestive of diarrheal process. Interpreted by: Hussein Poole MD Signed by: Hussein Poole MD 08/02/23 Final result Normal [facility] Comp Metabolic Profon 2023 Albumin [Mass/Vol] 4.5 g/dL Normal 3.5-5.2 [facility] Comment on above: Performed By: #### C P, LIP, CDP ####[address] [place], [place] [address] Lab Director: Maury Fuller MD Albumin/Glob Ratio 1.2 Normal 1.0-2.5 [facility] Comment on above: Performed By: #### C P, LIP, CDP ####[address] [place] [id number])[phone] Director: Maury Fuller MD Alkaline Phos 93 U/L Normal 35-104 [facility] Comment on above: Performed By: #### C P, LIP, CDP ####[address] [place] [address] Lab Director: Maury Fuller MD ALT [Catalytic activity/Vol] 46 U/L High 5-33 [facility] Comment on above: Performed By: #### C P, LIP, CDP ####[address] , [place] [phone] lab Director: Maury Fuller MD Anion gap [Moles/Vol] 11 mmol/L Normal 9-17 [facility] Comment on above: Performed By: #### C P, LIP, CDP ####[address] , [place] [id number] Lab Director: Maury Fuller MD AST [Catalytic activity/Vol] 26 U/L Normal <32 [facility] Comment on above: Performed By: #### C P, LIP, CDP ####[address] , [place] [id number] Lab Director: Maury Fuller MD Bilirubin [Mass/Vol] 0.7 mg/dL Normal 0.3-1.2 [facility] Comment on above: Performed By: #### C P, LIP, CDP ####[address] , [place] 9335783 Lab Director: Maury Fuller MD BUN/CRE Ratio 19 Normal 9-20 [facility] Comment on above: Performed By: #### C P, LIP, CDP ####[address] , [place] 8097183 Lab Director: Maury Fuller MD Calcium [Mass/Vol] 9.8 mg/dL Normal 8.6-10.4 [facility] Comment on above: Performed By: #### C P, LIP, CDP ####[address] , [place] 1632483 Lab Director: Maury Fuller MD Chloride [Moles/Vol] 103 mmol/L Normal 98-107 [facility] Comment on above: Performed By: #### C P, LIP, CDP ####[address] , [place] 2982583 Lab Director: Maury Fuller MD CO2 [Moles/Vol] 24 mmol/L Normal 20-31 [facility] Comment on above: Performed By: #### C P, LIP, CDP ####[address] , [place] 1186483 Lab Director: Maury Fuller MD Creatinine [Mass/Vol] 0.8 mg/dL Normal 0.5-0.9 [facility] Comment on above: Performed By: #### C P LIP, CDP ####[address] [place] [address] lab Director: Maury Fuller MD GFR/1.73 sq M.predicted among non-blacks MDRD (S/P/Bld) [Vol rate/Area] mL/min/{1.73_m2} Normal >60 [facility] Comment on above: Result Comment: These results are not intended for use in patients <18 years of age. eGFR results are calculated without a race factor using the 2020 CKD-EPI equation. Careful clinical correlation is recommended, particularly when comparing to results calculated using previous equations. The CKD-EPI equation is less accurate in patients with extremes of muscle mass, extra-renal metabolism of creatine, excessive creatine ingestion, or following therapy that affects renal tubular secretion. Performed By: #### C P LIP, CDP ####[address] , [place] 8018483 Lab Director: Maury Fuller MD Glucose [Mass/Vol] 103 mg/dL High 70-99 [facility] Comment on above: Performed By: #### C P LIP, CDP ####[address] , [place] 1472983 lab Director: Maury Fuller MD Potassium [Moles/Vol] 4.2 mmol/L Normal 3.7-5.3 [facility] Comment on above: Performed By: #### C P, LIP, CDP ####[address] , [place] 4198083 lab Director: Maury Fuller MD Protein [Mass/Vol] 8.4 g/dL High 6.4-8.3 [facility] Comment on above: Performed By: #### C P, LIP, CDP ####[address] , [place] 7924683 lab Director: Maury Fuller MD Sodium [Moles/Vol] 138 mmol/L Normal 135-144 [facility] Comment on above: Performed By: #### C P, LIP, CDP ####[address] , [place] 0137383 Lab Director: Maury Fuller MD Urea nitrogen [Mass/Vol] 15 mg/dL Normal 6-20 [facility] Comment on above: Performed By: #### C P, LIP, CDP ####[address] , [place] 2028[address] lab Director: Maury Fuller MD Lipaseon 6 Lipase [Catalytic activity/Vol] 24 U/L Normal 13-60 [facility] Comment on above: Performed By: #### C P, LIP, CDP ####[address] , [place] 8210383 Lab Director: Maury Fuller MD UA w/Reflex Cultureon 6 Bilirubin, SemiQt,Ur SMALL Abnormal NEG [facility] Comment on above: Performed By: #### U VERNON SHIELDS ####[address] , [place] 9182[address] Lab Director: Maury Fuller MD Blood, Urine Negative Normal NEG [facility] Comment on above: Performed By: #### U VERNON SHIELDS ####[address] , [place] 7559483 lab Director: Maury Fuller MD Clarity (U) Clear Normal CLEAR [facility] Comment on above: Performed By: #### U VERNON SHIELDS ####[address] [place] [address] Lab Director: Maury Fuller MD Color (U) Yellow Normal YEL [facility] Comment on above: Performed By: #### U JACKSON SHIELDSO ####[address] [place] [address] Lab Director: Maury Fuller MD Glucose Ql (U) Negative Normal NEG [facility] Comment on above: Performed By: #### U AX, UMICAO ####[address] [place] [address] Lab Director: Maury Fuller MD Ketones Ql (U) Negative Normal NEG [facility] Comment on above: Performed By: #### U AX, UMICAO ####[address] [place] [address] Lab Director: Maury Fuller MD Leukocyte esterase Test strip Ql (U) Negative Normal NEG [facility] Comment on above: Performed By: #### U AX, UMICAO ####[address] [place] [address] Lab Director: Maury Fuller MD Nitrite,Ur Negative Normal [facility] Comment on above: Performed By: #### U AX, UMICAO ####[address] [place] [address] Lab Director: Maury Fuller MD PH,Ur 5.5 Normal 5.0-9.0 [facility] Comment on above: Performed By: #### U AX, UMICAO ####[address] [place] [address] Lab Director: Maury Fuller MD Protein Ql (U) TRACE Abnormal NEG [facility] Comment on above: Performed By: #### U AX, UMICAO ####[address] , [place] 3034583 Lab Director: Maury Fuller MD Spec. [place],Ur >1.030 High 1.010-1.020 [facility] Comment on above: Performed By: #### U AX, UMICAO ####[address] , [place] 7598783 Lab Director: Maury Fulelr MD Urobilinogen,Ur Normal Normal 0.0-1.0 [facility] Comment on above: Performed By: #### U AX, UMICAO ####[address] , [place] 598[address]83 lab Director: Maury Fuller MD Urinalysis,Microon 4 Crystals LM Nom (Urine sed) 10 TO 20 Abnormal NONE [facility] Comment on above: Result Comment: CALC IUM OXALATE Performed By: #### U AXERINICAO ####[address] , [place] 1075583 lab Director: Maury Fuller MD Epithelial cells LM Ql (Urine sed) 0 TO 2 Normal 0-25 [facility] Comment on above: Performed By: #### U AX, UMICAO ####[address] , [place] [id number] lab Director: Maury Fuller MD Mucus Strands 2+ Abnormal NONE [facility] Comment on above: Performed By: #### U AX, UMICAO ####[address] , [place] 063[address]83 lab Director: Maury Fuller MD Urine RBC's 0 TO 2 Normal 0-2 [facility] Comment on above: Performed By: #### U AX, UMICAO ####[address] , [place] 768[address]83 lab Director: Maury Fuller MD Urine WBC's 0 TO 2 Normal 0-5 [facility] Comment on above: Performed By: #### U AX, UMICAO ####[address] , [place] 7207[address] lab Director: Maury Fuller MD XR SPINE LUMBAR 2 OR 3 VWSon 07-10-2023 XR SPINE LUMBAR 2 OR 3 VWS XR SPINE LUMBAR 2 OR 3 VWS . XR SPINE LUMBAR 2 OR 3 VWS HISTORY: Back pain, injury. Patient reports she injured her back when she slipped at home. COMPARISON: None. IMPRESSION: Preserved lumbar vertebral body heights. No substantial listhesis. Irregularity anterior superior corner of L1, presumed limbus vertebrae. Mild disc height loss within the lower lumbar region. Minimal sacroiliac osteoarthrosis. Finalized by Lauro Spears MD on 07/10/2023 9:42 PM Normal [facility] CT CHEST LOW DOSE (LDCT)on 08-25-2022 CT CHEST LOW DOSE (LDCT) EXAMINATION: LOW DOSE OF THE CT CHEST WITHOUT CONTRAST 06/23/2023 7:00 pm TECHNIQUE: Low Dose of the CT Chest without the administration of intravenous contrast (MA=40). Multiplanar reformatted images are provided for review. Automated exposure control, iterative reconstruction, and/or weight based adjustment of the mA/kV was utilized to reduce the radiation dose to as low as reasonably achievable. 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 No enlarged mediastinal or hilar lymph nodes by imaging size criteria. Heart size is enlarged. Thyroid and esophagus unremarkable as visualized. Lungs/Pleura: No consolidation, pneumothorax or pleural effusion. Central airways are patent. No change in grouping of nodules in the right upper lung. No new or suspicious nodule. Upper Abdomen: Limited visualization upper abdomen demonstrates no acute findings. Hepatic steatosis Soft Tissues/Bones: No acute abnormality of the visualized osseous structures and soft tissues. IMPRESSION: Stable grouping of nodules right upper lung. No new or suspicious nodule demonstrated. LUNG RADS: Lung-RADS 2 - Benign (v2022) Management: 12 month screening LDCT Interpreted by: Don Yepez DO Signed by: Don Yepez DO 06/24/23 Final result Normal [facility] Laboratory - Chemistry and C hemistry - challengeon 06-24-2023 Free T4 [Mass/Vol] 1.34 ng/dL [facility] Comment on above: Note: Reference Rang e:>=20y: 0.82 - 1.77 T3 [Mass/Vol] 180 ng/dL (71-180 ) [facility] T4 [Mass/Vol] 12.0 ug/dL [facility] Comment on above: Note: Reference Rang e:Adults: 4.2 - 13.0 TSH Qn 1.500 uIU/mL (0.450-4.50 0 ) [facility] - Serology - non- microon 06-24-2023 Thyroglobulin Ab Qn [IU]/mL (0.0-0.9 ) [facility] Comment on above: Note: Thyroglobulin Antibody measured by David CoulterMethodology TPO Ab Qn [IU]/mL (0-34 ) [facility] No Panel Informationon 06-24 Reported Physicians See Note [facility] Comment on above: Note: Reported Physi cians:Ordering: Nargis Reynolds BMPon 06-21-2023 Anion gap [Moles/Vol] 10 mmol/L 9 - 17 mmol/L [facility] Calcium [Mass/Vol] 9.2 mg/dL 8.6 - 10. 4 mg/dL [facility] Chloride [Moles/Vol] 105 mmol/L 98 - 10 7 mmol/L [facility] CO2 [Moles/Vol] 25 mmol/L 20 - 31 mmol/L [facility] Creatinine [Mass/Vol] 0.7 mg/dL 0.5 - 0.9 mg/dL [facility] GFR/1.73 sq M.predicted MDRD (S/P/Bld) [Vol rate/Area] - [facility] [email or web address] Comment on above: These results are not intended for use in patients <18 years of age. eGFR results are calculated without a race factor using the 2020 CKD-EPI equation. Careful clinical correlation is recommended, particularly when comparing to results calculated using previous equations. The CKD-EPI equation is less accurate in patients with extremes of muscle mass, extra-renal metabolism of creatine, excessive creatine ingestion, or following therapy that affects renal tubular secretion. Glucose [Mass/Vol] 106 mg/dL High 70 - 99 mg/dL [facility] Interpretation and review of laboratory results Abnormal [facility] Potassium [Moles/Vol] 3.8 mmol/L 3.7 - 5.3 mmol/L [facility] Sodium [Moles/Vol] 140 mmol/L 135 - 144 mmol/L [facility] Urea nitrogen [Mass/Vol] 11 mg/dL 6 - 20 mg/dL [facility] Urea nitrogen/Creatinine [Mass ratio] 16 mg/mg 9 - [facility] Basic Metabolic Profon 06-21 Anion gap [Moles/Vol] 10 mmol/L Normal - [facility] Comment on above: Performed By: #### C DP, BMP, DIME, TROPI #### [facility] [address] [place] [address] Health Care Attorney: Maury Fuller MD BUN/CRE Ratio 16 Normal - [facility] Comment on above: Performed By: #### C DP, BMP, DIME, TROPI #### [facility] [address] [place], [place] [id number] Health Care Attorney: Maury Fuller MD Calcium [Mass/Vol] 9.2 mg/dL Normal 8.6-10.4 [facility] Comment on above: Performed By: #### C DP, BMP, DIME, TROPI #### [facility] [address] [place], [place] [id number] Health Care Attorney: Maury Fuller MD Chloride [Moles/Vol] 105 mmol/L Normal 98-107 [facility] Comment on above: Performed By: #### C DP, BMP, DIME, TROPI #### [facility] [address] [place] [address] Health Care Attorney: Maury Fuller MD CO2 [Moles/Vol] 25 mmol/L Normal 20-31 [facility] Comment on above: Performed By: #### C DP, BMP, DIME, TROPI #### [facility] [address] [place] [address] Health Care Attorney: Maury Fuller MD Creatinine [Mass/Vol] 0.7 mg/dL Normal 0.5-0.9 [facility] Comment on above: Performed By: #### C DP, BMP, DIME, TROPI #### [facility] [address] [place] [address] Health Care Attorney: Maury Fuller MD GFR/1.73 sq M.predicted among non-blacks MDRD (S/P/Bld) [Vol rate/Area] mL/min/{1.73_m2} Normal >60 [facility] Comment on above: Result Comment: These results are not intended for use in patients <18 years of age. eGFR results are calculated without a race factor using the 2020 CKD-EPI equation. Careful clinical correlation is recommended, particularly when comparing to results calculated using previous equations. The CKD-EPI equation is less accurate in patients with extremes of muscle mass, extra-renal metabolism of creatine, excessive creatine ingestion, or following therapy that affects renal tubular secretion. Performed By: #### C DP, BMP, DIME, TROPI #### [facility] [address] [place] [address] Health Care Attorney: Maury Fuller MD Glucose [Mass/Vol] 106 mg/dL High 70-99 [facility] Comment on above: Performed By: #### C DP, BMP, DIME, TROPI #### [facility] [address] [place] [address] Health Care Attorney: Maury Fuller MD Potassium [Moles/Vol] 3.8 mmol/L Normal 3.7-5.3 [facility] Comment on above: Performed By: #### C DP, BMP, DIME, TROPI #### [facility] [address] [place] [address] Health Care Attorney: Maury Fuller MD Sodium [Moles/Vol] 140 mmol/L Normal 135-144 [facility] Comment on above: Performed By: #### C DP, BMP, DIME, TROPI #### [facility] [address] [place] [address] Health Care Attorney: Maury Fuller MD Urea nitrogen [Mass/Vol] 11 mg/dL Normal 6-20 [facility] Comment on above: Performed By: #### C DP, PATTIE, YAZ, LAURAI #### [facility] [address] [place] [address] Health Care Attorney: Maury Fuller MD CBC with Auto Differentialon 06-21-2023 Basophils (Bld) [#/Vol] [facility] Basophils/100 WBC (Bld) 0 % 0 - 2 % [facility] Eosinophils (Bld) [#/Vol] 0.26 10*3/uL [facility] Eosinophils/100 WBC (Bld) 2 % 1 - 4 % [facility] Erythrocyte distribution width (RBC) [Ratio] 12.3 % 11.8 - 14.4 % [facility] Hematocrit (Bld) [Volume fraction] 40.1 % 36.3 - 47.1 % [facility] Hemoglobin (Bld) [Mass/Vol] 13.3 g/dL 11.9 - 15.1 g/dL [facility] Immature granulocytes (Bld) [#/Vol] 0.05 10*3/uL [facility] Immature granulocytes/100 WBC (Bld) 1 % High 0 [facility] Interpretation and review of laboratory results Abnormal [facility] Lymphocytes/100 WBC (Bld) 24 % 24 - 43 % [facility] Lymphocytes/100 WBC (Bld) 2.68 % [facility] MCH (RBC) [Entitic mass] 28.2 pg 25.2 - 33.5 pg [facility] MCHC (RBC) [Mass/Vol] 33.2 g/dL 28.4 - 34.8 g/dL [facility] MCV (RBC) [Entitic vol] 85.1 fL 82.6 - 102.9 fL [facility] Monocytes/100 WBC (Bld) 6 % 3 - 12 % [facility] Monocytes/100 WBC (Bld) 0.71 % [facility] Neutrophils/100 WBC (Bld) 67 % High 36 - 65 % [facility] Nucleated RBC/100 WBC (Bld) [Ratio] 0.0 % 0.0 per 100 WBC [facility] Platelet mean volume (Bld) [Entitic vol] 10.2 fL 8.1 - 13.5 fL [facility] Platelets (Bld) [#/Vol] 304 10*3/uL [facility] RBC (Bld) [#/Vol] 4.71 10*6/uL 3.95 - 5.1 1 m/uL [facility] Segmented neutrophils/100 WBC (Bld) 7.32 % [facility] WBC other (Bld) [#/Vol] 11.0 [facility] CBC with Diffon 06-21-2023 Abs. Basophil <0.03 Normal 0.00-0.20 [facility] Comment on above: Performed By: #### C DP, BMP, DIME, TROPI #### [facility] [address] [place] [id number] Health Care Attorney: Maury Fuller MD Abs.Imm.Granulocyte 0.05 k/uL Normal 0.00-0.30 [facility] Comment on above: Performed By: #### C DP, BMP, DIME, TROPI #### [address] [place] [address] Health Care Attorney: Maury Fuller MD Abs.Neutrophil (Seg) 7.32 k/uL Normal 1.50-8.10 [facility] Comment on above: Performed By: #### C DP, BMP, DIME, TROPI #### [address] [place] [address] Health Care Attorney: Maury Fuller MD Basophils/100 WBC (Bld) 0 % Normal 0-2 [facility] Comment on above: Performed By: #### C DP, BMP, DIME, TROPI #### [facility] [address] [place], [place] [id number] Health Care Attorney: Maury Fuller MD Eosinophils (Bld) [#/Vol] 0.26 10*3/uL Normal 0.00-0.44 [facility] Comment on above: Performed By: #### C DP, BMP, DIME, TROPI #### [facility] [address] [place], [place] [address] Health Care Attorney: Maury Fuller MD Eosinophils/100 WBC (Bld) 2 % Normal 1-4 [facility] Comment on above: Performed By: #### C DP, BMP, DIME, TROPI #### [address] [place], [place] [address] Health Care Attorney: Maury Fuller MD Erythrocyte distribution width (RBC) [Ratio] 12.3 % Normal 11.8-14.4 [facility] Comment on above: Performed By: #### C DP, BMP, DIME, TROPI #### [address] [place], [facility] Health Care Attorney: Maury Fuller MD Hematocrit (Bld) [Volume fraction] 40.1 % Normal 36.3-47.1 [facility] Comment on above: Performed By: #### C DP, BMP, DIME, TROPI #### [address] [place], [place] [address] Health Care Attorney: Maury Fuller MD Hemoglobin (Bld) [Mass/Vol] 13.3 g/dL Normal 11.9-15.1 [facility] Comment on above: Performed By: #### C DP, BMP, DIME, TROPI #### [address] [place], [place] [id number] Health Care Attorney: Maury Fuller MD Immature granulocytes/100 WBC (Bld) 1 % High 0 [facility] Comment on above: Performed By: #### C DP, BMP, DIME, TROPI #### [facility] [address] [place] [address] Health Care Attorney: Maury Fuller MD Lymphocytes (Bld) [#/Vol] 2.68 10*3/uL Normal 1.10-3.70 [facility] Comment on above: Performed By: #### C DP, BMP, DIME, TROPI #### [facility] [address] [place], [place] [address] Health Care Attorney: Maury Fuller MD Lymphocytes/100 WBC (Bld) 24 % Normal 24-43 [facility] Comment on above: Performed By: #### C DP, BMP, DIME, TROPI #### [address] [place] [address] Health Care Attorney: Maury Fuller MD MCH (RBC) [Entitic mass] 28.2 pg Normal 25.2-33.5 [facility] Comment on above: Performed By: #### C DP, BMP, DIME, TROPI #### [address] [place], [facility] ( Health Care Attorney: Maury Fuller MD MCHC (RBC) [Mass/Vol] 33.2 g/dL Normal 28.4-34.8 [facility] Comment on above: Performed By: #### C DP, BMP, DIME, TROPI #### [address] [place], [facility] Health Care Attorney: Maury Fuller MD MCV (RBC) [Entitic vol] 85.1 fL Normal 82.6-102.9 [facility] Comment on above: Performed By: #### C DP, BMP, DIME, TROPI #### [address] [place], [place] [id number] Health Care Attorney: Maury Fuller MD Monocytes (Bld) [#/Vol] 0.71 10*3/uL Normal 0.10-1.20 [facility] Comment on above: Performed By: #### C DP, BMP, DIME, TROPI #### [facility] [address] [place] [address] Health Care Attorney: Maury Fuller MD Monocytes/100 WBC (Bld) 6 % Normal 3-12 [facility] Comment on above: Performed By: #### C DP, BMP, DIME, TROPI #### [facility] [address] [place], [place] [address] Health Care Attorney: Maury Fuller MD Neutrophil (Seg) 67 % High 36-65 [facility] Comment on above: Performed By: #### C DP, BMP, DIME, TROPI #### [facility] [address] [place] [address] Health Care Attorney: Maury Fuller MD NRBC Automated 0.0 per 100 WBC Normal 0.0 [facility] Comment on above: Performed By: #### C DP, BMP, DIME, TROPI #### [address] [place] [address] Health Care Attorney: Maury Fuller MD Platelet mean volume (Bld) [Entitic vol] 10.2 fL Normal 8.1-13.5 [facility] Comment on above: Performed By: #### C DP, BMP, DIME, TROPI #### [facility] [address] [place] [address] [place], [facility] Health Care Attorney: Maury Fuller MD Platelets (Bld) [#/Vol] 304 10*3/uL Normal 138-453 [facility] Comment on above: Performed By: #### C DP, BMP, DIME, TROPI #### [facility] [address] [place], [place] [id number] Health Care Attorney: Maury Fuller MD RBC (Bld) [#/Vol] 4.71 10*6/uL Normal 3.95-5.11 [facility] Comment on above: Performed By: #### C DP, BMP, DIME, TROPI #### [facility] [address] [place] [address] Health Care Attorney: Maury Fuller MD WBC (Bld) [#/Vol] 11.0 10*3/uL Normal 3.5-11.3 [facility] Comment on above: Performed By: #### C DP, BMP, DIME, TROPI #### [facility] [address] [place], [place] [id number] Health Care Attorney: Maury Fuller MD COVID-19, Rapidon 06-21-2023 SARS-CoV-2 (COVID-19) RdRp gene ANALY+probe Ql (Resp) Not detected Not Detected [facility] Comment on above: Rapid NAAT: The specimen is NEGATIVE for SARS-CoV-2, the novel coronavirus associated with COVID-19. The ID NOW COVID-19 assay is designed to detect the virus that causes COVID-19 in patients with signs and symptoms of infection who are suspected of COVID-19. An individual without symptoms of COVID-19 and who is not shedding SARS-CoV-2 virus would expect to have a negative (not detected) result in this assay. Negative results should be treated as presumptive and, if inconsistent with clinical signs and symptoms or necessary for patient management, should be tested with an alternative molecular assay. Negative results do not preclude SARS-CoV-2 infection and should not be used as the sole basis for patient management decisions. Fact sheet for Healthcare Providers: https://www.fda.gov/media/024685/download Fact sheet for Patients: https://www.fda.gov/media/672015/download Methodology: Isothermal Nucleic Acid Amplification Specimen Description .NASOPHARYNGEAL SWAB [facility] CT CHEST PULMONARY EMBOLISM W CONTRASTon 06-21-2023 CT CHEST PULMONARY EMBOLISM W CONTRAST EXAMINATION: CTA OF THE CHEST 06/21/2023 9:39 pm TECHNIQUE: CTA of the chest was performed after the administration of intravenous contrast. Multiplanar reformatted images are provided for review. MIP images are provided for review. Automated exposure control, iterative reconstruction, and/or weight based adjustment of the mA/kV was utilized to reduce the radiation dose to as low as reasonably achievable. COMPARISON: Chest CT 11/17/2022, CTA chest 11/03/2016 HISTORY: Pleuritic chest pain and elevated D-dimer FINDINGS: Pulmonary Arteries: Pulmonary arteries are adequately opacified for evaluation. No evidence of intraluminal filling defect to suggest pulmonary embolism. Main pulmonary artery is normal in caliber, 27 mm. Mediastinum: 18 mm precarinal lymph node and 16 mm right hilar lymph node. The heart and pericardium demonstrate no acute abnormality. Circumferential esophageal wall thickening at the distal esophagus. There is no acute abnormality of the thoracic aorta. The ascending thoracic aorta is 28 mm and descending thoracic aorta 23 mm. Lungs/pleura: The lungs are without acute process. Chronic clustered soft tissue nodules right upper lobe laterally, 5-7 nodules, largest soft tissue nodule 7 mm mean diameter. No focal consolidation or pulmonary edema. No evidence of pleural effusion or pneumothorax. No inspissated secretions or endobronchial lesion evident. Upper Abdomen: The liver is fatty. Visualized upper abdomen appears otherwise unremarkable. Soft Tissues/Bones: No acute bone or soft tissue abnormality. IMPRESSION: 1. No acute pulmonary embolism. 2. No acute pulmonary infiltrate. 3. Chronic probable postinfectious/inflammat ory sequela lateral right upper lobe. 4. Mediastinal and right hilar lymph node enlargement is probably reactive, nonspecific. 5. Hepatic steatosis. Interpreted by: Deo Tian MD Signed by: Deo Tian MD 06/21/23 Final result Normal [facility] 1. No acute pulmonar y embolism. 2. No acute pulmonary infiltrate. 3. Chronic probable postinfectious/inflammat ory sequela lateral right upper lobe. 4. Mediastinal and right hilar lymph node enlargement is probably reactive, nonspecific. 5. Hepatic steatosis. [facility] RIS CONSOLIDATED EXAMINATION: CTA OF THE CHEST 06/21/2023 9:39 pm TECHNIQUE: CTA of the chest was performed after the administration of intravenous contrast. Multiplanar reformatted images are provided for review. MIP images are provided for review. Automated exposure control, iterative reconstruction, and/or weight based adjustment of the mA/kV was utilized to reduce the radiation dose to as low as reasonably achievable. COMPARISON: Chest CT 11/17/2022, CTA chest 11/03/2016 HISTORY: Pleuritic chest pain and elevated D-dimer FINDINGS: Pulmonary Arteries: Pulmonary arteries are adequately opacified for evaluation. No evidence of intraluminal filling defect to suggest pulmonary embolism. Main pulmonary artery is normal in caliber, 27 mm. Mediastinum: 18 mm precarinal lymph node and 16 mm right hilar lymph node. The heart and pericardium demonstrate no acute abnormality. Circumferential esophageal wall thickening at the distal esophagus. There is no acute abnormality of the thoracic aorta. The ascending thoracic aorta is 28 mm and descending thoracic aorta 23 mm. Lungs/pleura: The lungs are without acute process. Chronic clustered soft tissue nodules right upper lobe laterally, 5-7 nodules, largest soft tissue nodule 7 mm mean diameter. No focal consolidation or pulmonary edema. No evidence of pleural effusion or pneumothorax. No inspissated secretions or endobronchial lesion evident. Upper Abdomen: The liver is fatty. Visualized upper abdomen appears otherwise unremarkable. Soft Tissues/Bones: No acute bone or soft tissue abnormality. [facility] Deo Rea MD - 06/21/2023 EXAMINATION: CTA OF THE CHEST 06/21/2023 9:39 pm TECHNIQUE: CTA of the chest was performed after the administration of intravenous contrast. Multiplanar reformatted images are provided for review. MIP images are provided for review. Automated exposure control, iterative reconstruction, and/or weight based adjustment of the mA/kV was utilized to reduce the radiation dose to as low as reasonably achievable. COMPARISON: Chest CT 11/17/2022, CTA chest 11/03/2016 HISTORY: Pleuritic chest pain and elevated D-dimer FINDINGS: Pulmonary Arteries: Pulmonary arteries are adequately opacified for evaluation. No evidence of intraluminal filling defect to suggest pulmonary embolism. Main pulmonary artery is normal in caliber, 27 mm. Mediastinum: 18 mm precarinal lymph node and 16 mm right hilar lymph node. The heart and pericardium demonstrate no acute abnormality. Circumferential esophageal wall thickening at the distal esophagus. There is no acute abnormality of the thoracic aorta. The ascending thoracic aorta is 28 mm and descending thoracic aorta 23 mm. Lungs/pleura: The lungs are without acute process. Chronic clustered soft tissue nodules right upper lobe laterally, 5-7 nodules, largest soft tissue nodule 7 mm mean diameter. No focal consolidation or pulmonary edema. No evidence of pleural effusion or pneumothorax. No inspissated secretions or endobronchial lesion evident. Upper Abdomen: The liver is fatty. Visualized upper abdomen appears otherwise unremarkable. Soft Tissues/Bones: No acute bone or soft tissue abnormality. IMPRESSION: 1. No acute pulmonary embolism. 2. No acute pulmonary infiltrate. 3. Chronic probable postinfectious/inflammat ory sequela lateral right upper lobe. 4. Mediastinal and right hilar lymph node enlargement is probably reactive, nonspecific. 5. Hepatic steatosis. [facility] Radiology Study observation (narrative) [facility] CT CHEST PULMONARY EMBOLISM W CONTRASTOrdered By: Deo Tian on 06-21-2023 [facility] Work Phone: D-Dimer Teston 06-21-2023 D-Dimer Test 0.66 ug/mL FEU High 0.00-0.59 [facility] Comment on above: Result Comment: When combined with a low clinical probability, a D dimer value of <0.50 ug/mL FEU is considered negative for DVT and PE (negative predictive value of 98%, sensitivity of 97%). If this test is not being used to help rule out DVT and PE, then the following reference range should be utilized: 0.00 - 0.59 ug/mL FEU. The D-Dimer assay is intended for use as an aid in the diagnosis of venous thromboembolism (DVT and PE) and the results should be interpreted in conjunction with the patient's medical history, clinical presentation, and other findings. Elevated levels of D-dimer activity can be seen in any state of coagulation activation and is not recommended in patients with therapeutic dose anticoagulant therapy for >24 hours, fibrinolytic therapy within the previous 7 days, trauma or surgery within the previous 4 weeks, disseminated malignancies, aortic aneurysm, sepsis, severe infections, pneumonia, severe skin infections, liver cirrhosis, advanced age, coronary disease, diabetes, and . A very low percentage of patients with DVT may yield D-dimer results below the cutoff of 0.5 ug/mL FEU. This is known to be more prevalent in patients with distal DVT. Performed By: #### C CONNIE, PATTIE, ALEXI MUKHERJEE #### [facility] [address] [place] [address] Health Care Attorney: Maury Fuller MD D-Dimer, Quantitativeon 06-05 Fibrin D-dimer FEU (PPP) [Mass/Vol] 0.66 High [facility] Comment on above: When combined with a low clinical probability, a D dimer value of <0.50 ug/mL FEU is considered negative for DVT and PE (negative predictive value of 98%, sensitivity of 97%). If this test is not being used to help rule out DVT and PE, then the following reference range should be utilized: 0.00 - 0.59 ug/mL FEU. The D-Dimer assay is intended for use as an aid in the diagnosis of venous thromboembolism (DVT and PE) and the results should be interpreted in conjunction with the patient's medical history, clinical presentation, and other findings. Elevated levels of D-dimer activity can be seen in any state of coagulation activation and is not recommended in patients with therapeutic dose anticoagulant therapy for >24 hours, fibrinolytic therapy within the previous 7 days, trauma or surgery within the previous 4 weeks, disseminated malignancies, aortic aneurysm, sepsis, severe infections, pneumonia, severe skin infections, liver cirrhosis, advanced age, coronary disease, diabetes, and . A very low percentage of patients with DVT may yield D-dimer results below the cutoff of 0.5 ug/mL FEU. This is known to be more prevalent in patients with distal DVT. Interpretation and review of laboratory results Abnormal [facility] Flu A/B Ag Detectionon 06-21 Flu A Ag Detection Negative Normal [facility] Comment on above: Result Comment: for Influenza A Antigen Performed By: #### F EMILY ####[facility] [place] [address] lab Director: Maury Fuller MD Flu B Ag Detection Negative Normal [facility] Comment on above: Result Comment: for Influenza B Antigen. Performed By: #### F EMILY ####[facility] [place] [address] lab Director: Maury Fuller MD HCG, ,Urineon 06-21 Beta HCG ( test) Ql (U) Negative Normal [facility] Comment on above: Result Comment: Spec imens with hCG levels near the threshold of the test (25 mIU/mL) may give a negative or indeterminate result. In such cases, another test should be performed with a new specimen in 48-72 hours. If early is suspected clinically in this setting, correlation with quantitative serum b-hCG level is suggested. [employer] has confirmed the use of plasma for this test. This has not been cleared or approved by the U.S. Food and Drug Administration. The FDA has determined that such clearance is not necessary. Performed By: #### U HCG #### [facility] [address] [place] [address] Health Care Attorney: Maury Fuller MD Portable XR Chest AP single viewon 06-21-2023 No acute cardiopulmo nary process. Stable exam since 08/01/2022. [facility] EXAMINATION: ONE XRAY VIEW OF THE CHEST 06/21/2023 7:36 pm COMPARISON: Chest x-ray from 08/01/2022. HISTORY: ORDERING SYSTEM PROVIDED HISTORY: cp TECHNOLOGIST PROVIDED HISTORY: cp FINDINGS: Support devices: None. No focal consolidations, effusions, or sizable pneumothorax. Cardiomediastinal silhouette is within normal limits. No acute findings in the bones or soft tissues. [facility] Sathya Wright, - 06/21/2023 EXAMINATION: ONE XRAY VIEW OF THE CHEST 06/21/2023 7:36 pm COMPARISON: Chest x-ray from 08/01/2022. HISTORY: ORDERING SYSTEM PROVIDED HISTORY: cp TECHNOLOGIST PROVIDED HISTORY: cp FINDINGS: Support devices: None. No focal consolidations, effusions, or sizable pneumothorax. Cardiomediastinal silhouette is within normal limits. No acute findings in the bones or soft tissues. IMPRESSION: No acute cardiopulmonary process. Stable exam since 08/01/2022. [facility] [email or web address] Radiology Study observation (narrative) [employer] Portable XR Chest AP single viewOrdered By: Sathya Wright on 06-21-2023 [facility] Work Phone: , Urineon 3 HCG ( test) Ql (U) Negative NEGATIVE [facility] Comment on above: Specimens with hCG l evels near the threshold of the test (25 mIU/mL) may give a negative or indeterminate result. In such cases, another test should be performed with a new specimen in 48-72 hours. If early is suspected clinically in this setting, correlation with quantitative serum b-hCG level is suggested. [facility] the use of plasma for this test. This has not been cleared or approved by the U.S. Food and Drug Administration. The FDA has determined that such clearance is not necessary. [facility] Rapid influenza A/B antigens on 06-21-2023 FLUAV Ag Ql (Unsp spec) Negative NEGATIVE [facility] Comment on above: for Influenza A Anti gen FLUBV Ag Ql (Unsp spec) Negative NEGATIVE [facility] Comment on above: for Influenza B Anti gen. [facility] [id number] 06-21-2023 SARS-CoV-2 (COVID-19) RNA ANALY+probe Ql (Unsp spec) Not detected Normal NOTDET [facility] Comment on above: Result Comment: Rapid NAAT: The specimen is NEGATIVE for SARS-CoV-2, the novel coronavirus associated with COVID-19. The ID NOW COVID-19 assay is designed to detect the virus that causes COVID-19 in patients with signs and symptoms of infection who are suspected of COVID-19. An individual without symptoms of COVID-19 and who is not shedding SARS-CoV-2 virus would expect to have a negative (not detected) result in this assay. Negative results should be treated as presumptive and, if inconsistent with clinical signs and symptoms or necessary for patient management, should be tested with an alternative molecular assay. Negative results do not preclude SARS-CoV-2 infection and should not be used as the sole basis for patient management decisions. Fact sheet for Healthcare Providers: https://www.fda.gov/media/371764/download Fact sheet for Patients: https://www.fda.gov/media/178246/download Methodology: Isothermal Nucleic Acid Amplification Performed By: #### C OVRB #### [facility] [address] [place] [address] [place] [address] Health Care Attorney: Maury Fuller MD Troponinon 06-21-2023 Troponin I.cardiac High sensitivity method [Mass/Vol] 6 ng/L 0 - 14 ng/L [facility] Comment on above: High Sensitivity Tro ponin values cannot be compared with other Troponin methodologies. [facility] Troponin, High Sens 6 ng/L Normal 0-14 [facility] Comment on above: Result Comment: High Sensitivity Troponin values cannot be compared with other Troponin methodologies. Performed By: #### C DP, BMP, DIME, TROPI #### [facility] [address] [place] [address] [place] [address] Health Care Attorney: Maury Fuller MD XR CHEST PORTABLEon 06-21-20 XR CHEST PORTABLE EXAMINATION: ONE XRAY VIEW OF THE CHEST 06/21/2023 7:36 pm COMPARISON: Chest x-ray from 08/01/2022. HISTORY: ORDERING SYSTEM PROVIDED HISTORY: cp TECHNOLOGIST PROVIDED HISTORY: cp FINDINGS: Support devices: None. No focal consolidations, effusions, or sizable pneumothorax. Cardiomediastinal silhouette is within normal limits. No acute findings in the bones or soft tissues. IMPRESSION: No acute cardiopulmonary process. Stable exam since 08/01/2022. Interpreted by: Sathya Wright DO Signed by: Sathya Wright DO 06/21/23 Final result Normal [facility] TILT TABLE REPORTon 12-11-19 Leticia Ríos MD - 12/10/2022 2:58 PM EDT [address] [id number] TILT TABLE TEST PATIENT NAME: OSWALD COX : 1995 MED REC NO: [id number] ROOM: ACCOUNT NO: [id number] ADMIT DATE: 12/10/2022 PROVIDER: Leticia Ríos MD Cardiovascular Diagnostics Department DATE OF PROCEDURE: 12/10/2022 ORDERING PROVIDER: Jazmín Brambila PA-C PRIMARY CARE PROVIDER: DENY Christopher INTERPRETING PHYSICIAN: Leitcia Ríos MD Diagnosis: Lightheadedness, palpitations. PROCEDURE SUMMARY: After explaining the risk, benefits and alternatives to the procedure, informed written consent was obtained. The patient was brought to the tilt table laboratory in a fasting and resting state. The patient was placed on the tilt table in the supine position, ECG patches were applied and an IV was placed. The patient's baseline blood pressure was 139/82 mmHg with a heart rate of 88/minute. The patient was then raised to the 70 degree head upright tilt position and pulse rate, blood pressure and cardiac rhythm were monitored and recorded each minute of the study for a maximum of 30 minutes. During the initial 20 minutes of the study, the patient's blood pressure ranged from a high of 140/89 mmHg to a low of 123/80 mmHg, while their heart rate ranged from a low of 92/minute to a high of mild/minute. During this period, the patient reported lightheadedness. During the last 10 minutes of the study, the patient was given 0.4 mg of sublingual nitroglycerin in order to simulate sympathetic stimulation and increase the patients heart rate by at least 20%. During this time, the patient's blood pressure ranged from a high of 126/83 mmHg to a low of 102/75 mmHg, while their heart rate ranged from a low of 113/minute to a high of 126/minute. During this period, the patient reported moderate lightheadedness, palpitations, headache. At this point, the patient was returned to the supine position and monitored for an additional ten minutes. Once the patient felt well enough to be discharged home, they were discharged home with instructions to follow up with their primary care physician and/or documentation supervisor as previously scheduled. STUDY CONCLUSIONS: Negative head upright tilt table study. Although the sensitivity of this study certainly is not 100%, the relatively normal result significantly decreased the likelihood of a neurocardiogenic source for the patient's symptoms. However, if clinical suspicion remains high, a repeat study may be indicated. LETICIA RÍOS MD SAGE/HERNANDEZ_MATTHEW Doc#: Unknown CC: LESLI Turner, STRATIGRAPHER-BANK APPRAISER [employer] Work Phone: [employer] Phone: Lipid Panelon 10-23-2022 Cholesterol [Mass/Vol] 168 mg/dL NINF - 200 mg/dL [facility] Comment on above: Cholesterol Guidelines: <200 Desirable 200-240 Borderline >240 Undesirable Cholesterol in HDL [Mass/Vol] 36 mg/dL Low 40 - PINF mg/dL [facility] Comment on above: HDL Guidelines: <40 Undesirable 40-59 Borderline >59 Desirable Cholesterol in LDL [Mass/Vol] 111 mg/dL 0 - 130 mg/dL [facility] Comment on above: LDL Guidelines: <100 Desirable 100-129 Near to/above Desirable 130-159 Borderline >159 Undesirable Direct (measured) LDL and calculated LDL are not interchangeable tests. Cholesterol.total/Cho lesterol in HDL [Mass ratio] 4.7 {ratio} NINF - 5 [facility] Interpretation and review of laboratory results Abnormal [facility] Triglyceride [Mass/Vol] 104 mg/dL NINF - 150 mg/dL [facility] Comment on above: Triglyceride Guidelines: <150 Desirable 150-199 Borderline 200-499 High >499 Very high Based on AHA Guidelines for fasting triglyceride, April 2012. [facility] CBC with Auto Differentialon 10-17-2022 Absolute Eos # 0.26 [facility] Absolute Immature Granulocyte 0.04 [facility] Absolute Lymph # 2.39 [facility] SECO URS [facility] Absolute Cidra # 0.57 [facility] RS [facility] Basophils Absolute [place] [facility] Basophils/100 WBC (Bld) 0 % 0 - 2 % [facility] Eosinophils/100 WBC (Bld) 2 % 1 - 4 % [facility] Hematocrit (Bld) [Volume fraction] 38.7 % 36.3 - 47.1 % [facility] Hemoglobin (Bld) [Mass/Vol] 12.6 g/dL 11.9 - 15.1 g/dL [facility] Immature granulocytes/100 WBC (Bld) 0 % 0 [facility] Interpretation and review of laboratory results Abnormal [facility] Lymphocytes/100 WBC (Bld) 20 % Low 24 - 43 % [facility] MCH (RBC) [Entitic mass] 27.5 pg 25.2 - 33.5 pg [facility] MCHC (RBC) [Mass/Vol] 32.6 g/dL 28.4 - 34.8 g/dL [facility] MCV (RBC) [Entitic vol] 84.3 fL 82.6 - 102.9 fL [facility] Monocytes/100 WBC (Bld) 5 % 3 - 12 % [facility] NRBC Automated 0.0 0.0 per 100 WBC [facility] Platelet distribution width (Bld) [Ratio] 12.6 % 11.8 - 14.4 % [facility] Platelet mean volume (Bld) [Entitic vol] 10.0 fL 8.1 - 13.5 fL [facility] Platelets (Bld) [#/Vol] 340 10*3/uL [facility] RBC (Bld) [#/Vol] 4.59 10*6/uL 3.95 - 5.1 1 m/uL [facility] Segmented neutrophils/100 WBC (Bld) 73 % High 36 - 65 % [facility] Segs Absolute 8.58 High [facility] WBC (Bld) [#/Vol] 11.9 10*3/uL High [facility] S [facility] CMPon 10-17-2022 Albumin [Mass/Vol] 4.1 g/dL 3.5 - 5.2 g/dL [facility] Albumin/Globulin [Mass ratio] 1.3 {ratio} 1.0 - 2.5 [facility] ALP [Catalytic activity/Vol] 74 U/L 35 - 104 U/L [facility] ALT [Catalytic activity/Vol] 45 U/L High 5 - 33 U/L [facility] Anion gap [Moles/Vol] 9 mmol/L 9 - 17 mmol/L [facility] AST [Catalytic activity/Vol] 43 U/L High NINF - 32 U/L [facility] Bilirubin [Mass/Vol] 0.5 mg/dL 0.3 - 1 .2 mg/dL [facility] Calcium [Mass/Vol] 9.3 mg/dL 8.6 - 10. 4 mg/dL [facility] Chloride [Moles/Vol] 106 mmol/L 98 - 10 7 mmol/L [facility] CO2 [Moles/Vol] 25 mmol/L 20 - 31 mmol/L [facility] Creatinine [Mass/Vol] 0.68 mg/dL 0.50 - 0.90 mg/dL [facility] GFR/1.73 sq M.predicted MDRD (S/P/Bld) [Vol rate/Area] - PINF [facility] Comment on above: These results are not intended for use in patients <18 years of age. eGFR results are calculated without a race factor using the 2020 CKD-EPI equation. Careful clinical correlation is recommended, particularly when comparing to results calculated using previous equations. The CKD-EPI equation is less accurate in patients with extremes of muscle mass, extra-renal metabolism of creatine, excessive creatine ingestion, or following therapy that affects renal tubular secretion. Glucose [Mass/Vol] 94 mg/dL 70 - 99 mg/dL [facility] Interpretation and review of laboratory results Abnormal [facility] Potassium [Moles/Vol] 4.1 mmol/L 3.7 - 5.3 mmol/L [facility] Protein [Mass/Vol] 7.3 g/dL 6.4 - 8.3 g/dL [facility] Sodium [Moles/Vol] 140 mmol/L 135 - 144 mmol/L [facility] Urea nitrogen [Mass/Vol] 15 mg/dL 6 - 20 mg/dL [facility] Urea nitrogen/Creatinine (Bld) [Mass ratio] 22 High 9 - [address] [facility] CT CHEST PULMONARY EMBOLISM W CONTRASTon 10-17-2022 No evidence of pulmo nary embolism or acute pulmonary abnormality. [facility] EXAMINATION: CTA OF THE CHEST 10/17/2022 1:56 pm TECHNIQUE: CTA of the chest was performed after the administration of intravenous contrast. Multiplanar reformatted images are provided for review. MIP images are provided for review. Automated exposure control, iterative reconstruction, and/or weight based adjustment of the mA/kV was utilized to reduce the radiation dose to as low as reasonably achievable. COMPARISON: 07/21/2022 HISTORY: ORDERING SYSTEM PROVIDED HISTORY: PE TECHNOLOGIST PROVIDED HISTORY: PE FINDINGS: Pulmonary Arteries: Pulmonary arteries are adequately opacified for evaluation. No evidence of intraluminal filling defect to suggest pulmonary embolism. Main pulmonary artery is normal in caliber. Mediastinum: Stable right paratracheal lymph node measuring 1.5 cm in short axis. Heart size is normal. No pericardial effusion. No thoracic adenopathy. Thoracic aorta is normal caliber. Aortic arch branch vessels are patent. Lungs/pleura: Clustered tree-in-bud right upper lobe nodules measuring up to 7 mm are stable compatible with sequela of prior infection. Remainder of the lungs and pleural surfaces and central airways are clear. Upper Abdomen: Limited images of the upper abdomen are unremarkable. Soft Tissues/Bones: No acute bone or soft tissue abnormality. [facility] Osiel Black MD - 10/17/2022 EXAMINATION: CTA OF THE CHEST 10/17/2022 1:56 pm TECHNIQUE: CTA of the chest was performed after the administration of intravenous contrast. Multiplanar reformatted images are provided for review. MIP images are provided for review. Automated exposure control, iterative reconstruction, and/or weight based adjustment of the mA/kV was utilized to reduce the radiation dose to as low as reasonably achievable. COMPARISON: 07/21/2022 HISTORY: ORDERING SYSTEM PROVIDED HISTORY: PE TECHNOLOGIST PROVIDED HISTORY: PE FINDINGS: Pulmonary Arteries: Pulmonary arteries are adequately opacified for evaluation. No evidence of intraluminal filling defect to suggest pulmonary embolism. Main pulmonary artery is normal in caliber. Mediastinum: Stable right paratracheal lymph node measuring 1.5 cm in short axis. Heart size is normal. No pericardial effusion. No thoracic adenopathy. Thoracic aorta is normal caliber. Aortic arch branch vessels are patent. Lungs/pleura: Clustered tree-in-bud right upper lobe nodules measuring up to 7 mm are stable compatible with sequela of prior infection. Remainder of the lungs and pleural surfaces and central airways are clear. Upper Abdomen: Limited images of the upper abdomen are unremarkable. Soft Tissues/Bones: No acute bone or soft tissue abnormality. IMPRESSION: No evidence of pulmonary embolism or acute pulmonary abnormality. [employer] Phone: Radiology Study observation (narrative) [employer] Phone: CT CHEST PULMONARY EMBOLISM W CONTRASTOrdered By: Osiel Masterson on 10-17-2022 [facility] Work Phone: D-Dimer, Quantitativeon 10-04 Fibrin D-dimer FEU IA (Bld) [Mass/Vol] 0.77 ug/mL High [facility] Comment on above: When combined with a low clinical probability, a D dimer value of <0.50 mg/L FEU is considered negative for DVT and PE (negative predictive value of 98%, sensitivity of 97%). If this test is not being used to help rule out DVT and PE, then the following reference range should be utilized: 0.00 - 0.59 mg/L FEU. The D-Dimer assay is intended for use as an aid in the diagnosis of venous thromboembolism (DVT and PE) and the results should be interpreted in conjunction with the patient's medical history, clinical presentation, and other findings. Elevated levels of D-dimer activity can be seen in any state of coagulation activation and is not recommended in patients with therapeutic dose anticoagulant therapy for >24 hours, fibrinolytic therapy within the previous 7 days, trauma or surgery within the previous 4 weeks, disseminated malignancies, aortic aneurysm, sepsis, severe infections, pneumonia, severe skin infections, liver cirrhosis, advanced age, coronary disease, diabetes, and . A very low percentage of patients with DVT may yield D-dimer results below the cutoff of 0.5 mg/L FEU. This is known to be more prevalent in patients with distal DVT. Interpretation and review of laboratory results Abnormal [facility] Microscopic Urinalysison Bacteria, UA 2+ Abnormal None [facility] Epithelial Cells UA 2 TO 5 [facility] Interpretation and review of laboratory results Abnormal [facility] Mucus, UA 3+ Abnormal None [facility] RBC clumps Auto (Urine sed) [#/Area] 0 TO 2 [facility] WBC, UA 2 TO 5 [facility] TSHon 10-17-2022 TSH Qn 0.86 m[IU]/L [facility] Troponinon 10-17-2022 Troponin I.cardiac DL <= 0.01 ng/mL [Mass/Vol] ng/L 0 - 14 ng/L [facility] Comment on above: High Sensitivity Tro ponin values cannot be compared with other Troponin methodologies. [facility] Urinalysison 10-17-2022 Bilirubin Urine Negative NEGATIVE [facility] Color, UA Yellow Yellow [facility] Glucose Auto test strip (U) [Mass/Vol] Negative NEGATIVE [facility] Interpretation and review of laboratory results Abnormal [facility] Ketones (U) [Mass/Vol] Negative NEGATIVE [facility] Leukocyte esterase Auto test strip Ql (U) TRACE Abnormal NEGATIVE [facility] Nitrite Auto test strip Ql (U) Negative NEGATIVE [facility] Protein (U) [Mass/Vol] 6.0 mg/dL 5.0 - 9.0 [facility] Protein (U) [Mass/Vol] Negative NEGATIVE [facility] Specific [place], UA High 1.010 - 1.020 [facility] Turbidity UA Clear Clear [facility] Urine Hgb Negative NEGATIVE [facility] Urobilinogen, Urine Normal Normal [facility] Urine Preg (Lab)on 3 Beta HCG ( test) Ql (U) Negative NEGATIVE [facility] Comment on above: Specimens with hCG l evels near the threshold of the test (25 mIU/mL) may give a negative or indeterminate result. In such cases, another test should be performed with a new specimen in 48-72 hours. If early is suspected clinically in this setting, correlation with quantitative serum b-hCG level is suggested. [employer] has confirmed the use of plasma for this test. This has not been cleared or approved by the U.S. Food and Drug Administration. The FDA has determined that such clearance is not necessary. [facility] EKG 12 LeadOrdered By: Parvez Medel on 10-09-2022 Atrial Rate 69 BPM [facility] Work Phone: P [place] 37 degrees [facility] Work Phone: P-R Interval 142 ms [facility] Work Phone: Q-T Interval 394 ms [employer] Work Phone: QRS Duration 86 ms [facility] [email or web address] Work Phone: QTc Calculation (Bazett) 422 ms [facility] [email or web address] Work Phone: R [place] 32 degrees [facility] Work Phone: T [place] 45 degrees [facility] Work Phone: Ventricular Rate 69 BPM [facility] [employer] Work Phone: DAVIE He[employer]ABELINO [employer] Work Phone: EKG 12 Leadon 10-09-2022 Sinus rhythm with Premature supraventricular complexes and Premature ventricular complexes or Fusion complexes Otherwise normal ECG When compared with ECG of 01-AUG-2022 09:28, Fusion complexes are now Present Premature ventricular complexes are now Present Premature supraventricular complexes are now Present Confirmed by LEONARD MEDEL ([id number]) on 10/09/2022 12:13:57 AM [facility] Leonard Medel MD - 10/09/2022 Sinus rhythm with Premature supraventricular complexes and Premature ventricular complexes or Fusion complexes Otherwise normal ECG When compared with ECG of 01-AUG-2022 09:28, Fusion complexes are now Present Premature ventricular complexes are now Present Premature supraventricular complexes are now Present Confirmed by LEONARD MEDEL ([id number]) on 10/09/2022 12:13:57 AM [employer] Work Phone: Basic Metabolic Panelon 04-0 Anion gap [Moles/Vol] 8 mmol/L Low 9 - 17 mmol/L [employer] Calcium [Mass/Vol] 9.3 mg/dL 8.6 - 10. 4 mg/dL [employer] Chloride [Moles/Vol] 105 mmol/L 98 - 10 7 mmol/L [facility] CO2 [Moles/Vol] 27 mmol/L 20 - 31 mmol/L [facility] [email or web address] Creatinine [Mass/Vol] 0.56 mg/dL 0.50 - 0.90 mg/dL [facility] GFR/1.73 sq M.predicted MDRD (S/P/Bld) [Vol rate/Area] - PINF [facility] Comment on above: These results are not intended for use in patients <18 years of age. eGFR results are calculated without a race factor using the 2020 CKD-EPI equation. Careful clinical correlation is recommended, particularly when comparing to results calculated using previous equations. The CKD-EPI equation is less accurate in patients with extremes of muscle mass, extra-renal metabolism of creatine, excessive creatine ingestion, or following therapy that affects renal tubular secretion. Glucose [Mass/Vol] 90 mg/dL 70 - 99 mg/dL [facility] Interpretation and review of laboratory results Abnormal [facility] Potassium [Moles/Vol] 3.9 mmol/L 3.7 - 5.3 mmol/L [facility] Sodium [Moles/Vol] 140 mmol/L 135 - 144 mmol/L [facility] Urea nitrogen [Mass/Vol] 11 mg/dL 6 - 20 mg/dL [facility] Urea nitrogen/Creatinine (Bld) [Mass ratio] 20 9 - 20 [facility] CBC with Auto Differentialon 10-08-2022 Absolute Eos # 0.32 [facility] Absolute Immature Granulocyte 0.05 [facility] Absolute Lymph # 2.60 [facility] Absolute Cidra # 0.68 [facility] RS [facility] Basophils Absolute [facility] Basophils/100 WBC (Bld) 0 % 0 - 2 % [facility] Eosinophils/100 WBC (Bld) 3 % 1 - 4 % [facility] Hematocrit (Bld) [Volume fraction] 41.5 % 36.3 - 47.1 % [facility] Hemoglobin (Bld) [Mass/Vol] 13.3 g/dL 11.9 - 15.1 g/dL [facility] Immature granulocytes/100 WBC (Bld) 0 % 0 [facility] Interpretation and review of laboratory results Abnormal [facility] Lymphocytes/100 WBC (Bld) 22 % Low 24 - 43 % [facility] MCH (RBC) [Entitic mass] 27.3 pg 25.2 - 33.5 pg [facility] MCHC (RBC) [Mass/Vol] 32.0 g/dL 28.4 - 34.8 g/dL [facility] MCV (RBC) [Entitic vol] 85.2 fL 82.6 - 102.9 fL [facility] Monocytes/100 WBC (Bld) 6 % 3 - 12 % [facility] NRBC Automated 0.0 0.0 per 100 WBC [facility] Platelet distribution width (Bld) [Ratio] 12.5 % 11.8 - 14.4 % [facility] Platelet mean volume (Bld) [Entitic vol] 9.7 fL 8.1 - 13.5 fL [facility] Platelets (Bld) [#/Vol] 364 10*3/uL [facility] RBC (Bld) [#/Vol] 4.87 10*6/uL 3.95 - 5.1 1 m/uL [facility] Segmented neutrophils/100 WBC (Bld) 69 % High 36 - 65 % [facility] Segs Absolute 8.16 High [facility] WBC (Bld) [#/Vol] 11.8 10*3/uL High [facility] CBC with Auto Differentialon 07-21-2022 Absolute Eos # 0.27 [facility] Absolute Immature Granulocyte 0.12 [facility] Absolute Lymph # 3.08 [facility] Absolute Cidra # 1.01 [facility] Basophils (Bld) [#/Vol] 0.04 10*3/uL [facility] Basophils/100 WBC (Bld) 0 % 0 - 2 % [facility] Eosinophils/100 WBC (Bld) 2 % 1 - 4 % [facility] Hematocrit (Bld) [Volume fraction] 40.1 % 36.3 - 47.1 % [facility] Hemoglobin (Bld) [Mass/Vol] 13.0 g/dL 11.9 - 15.1 g/dL [facility] Immature granulocytes/100 WBC (Bld) 1 % High 0 [facility] Interpretation and review of laboratory results Abnormal [facility] Lymphocytes/100 WBC (Bld) 21 % Low 24 - 43 % [facility] MCH (RBC) [Entitic mass] 28.4 pg 25.2 - 33.5 pg [facility] MCHC (RBC) [Mass/Vol] 32.4 g/dL 28.4 - 34.8 g/dL [facility] MCV (RBC) [Entitic vol] 87.7 fL 82.6 - 102.9 fL [facility] Monocytes/100 WBC (Bld) 7 % 3 - 12 % [facility] NRBC Automated 0.0 0.0 per 100 WBC [facility] Platelet distribution width (Bld) [Ratio] 12.4 % 11.8 - 14.4 % [facility] Platelet mean volume (Bld) [Entitic vol] 9.9 fL 8.1 - 13.5 fL [facility] Platelets (Bld) [#/Vol] 339 10*3/uL [facility] RBC (Bld) [#/Vol] 4.57 10*6/uL 3.95 - 5.1 1 m/uL [facility] Segmented neutrophils/100 WBC (Bld) 69 % High 36 - 65 % [facility] Segs Absolute 10.23 High [facility] WBC (Bld) [#/Vol] 14.8 10*3/uL High [facility] COVID-19, Rapidon 07-21-2022 Interpretation and review of laboratory results Abnormal [facility] SARS-CoV-2 (COVID-19) RNA ANALY+probe Ql (Unsp spec) Detected Abnormal Not Detected [facility] Comment on above: Rapid NAAT: The specimen is POSITIVE for SARS-Cov-2, the novel coronavirus associated with COVID-19. This test has been authorized by the FDA under an Emergency Use Authorization (EUA) for use by authorized laboratories. The ID NOW COVID-19 assay is designed to detect the virus that causes COVID-19 in patients with signs and symptoms of infection who are suspected of COVID-19. An individual without symptoms of COVID-19 and who is not shedding SARS-CoV-2 virus would expect to have a negative (not detected) result in this assay. Fact sheet for Healthcare Providers: https://www.fda.gov/media/233197/download Fact sheet for Patients: https://www.fda.gov/media/248748/download Methodology: Isothermal Nucleic Acid Amplification Results reported to the appropriate Health Department Specimen Description .NASOPHARYNGEAL SWAB [facility] CT CHEST PULMONARY EMBOLISM W CONTRASTon 07-21-2022 Focal nodularity rig ht upper lobe as above. Differential considerations include infectious, inflammatory, and less likely neoplastic etiologies. Follow findings are atypical for COVID-19. [facility] EXAMINATION: CTA OF THE CHEST 07/21/2022 9:02 pm TECHNIQUE: CTA of the chest was performed after the administration of intravenous contrast. Multiplanar reformatted images are provided for review. MIP images are provided for review. Automated exposure control, iterative reconstruction, and/or weight based adjustment of the mA/kV was utilized to reduce the radiation dose to as low as reasonably achievable. COMPARISON: Chest x-ray July 21, 2022 HISTORY: ORDERING SYSTEM PROVIDED HISTORY: Elevated d-dimer, chest pain, dyspnea, COVID+ TECHNOLOGIST PROVIDED HISTORY: Elevated d-dimer, chest pain, dyspnea, COVID+ Decision Support Exception - unselect if not a suspected or confirmed emergency medical condition->Emergency Medical Condition (MA) FINDINGS: Pulmonary Arteries: Pulmonary arteries are adequately opacified for evaluation. No evidence of intraluminal filling defect to suggest pulmonary embolism. Main pulmonary artery is normal in caliber. Mediastinum: No evidence of mediastinal lymphadenopathy. The heart and pericardium demonstrate no acute abnormality. There is no acute abnormality of the thoracic aorta. Lungs/pleura: There is a cluster of nodules in the right upper lobe measuring up to 7 mm in diameter. These are too numerous to count and are focal. Remainder of the lungs clear. Upper Abdomen: Limited images of the upper abdomen are unremarkable. Soft Tissues/Bones: No acute bone or soft tissue abnormality. [facility] German Cutler MD - 07/21/2022 EXAMINATION: CTA OF THE CHEST 07/21/2022 9:02 pm TECHNIQUE: CTA of the chest was performed after the administration of intravenous contrast. Multiplanar reformatted images are provided for review. MIP images are provided for review. Automated exposure control, iterative reconstruction, and/or weight based adjustment of the mA/kV was utilized to reduce the radiation dose to as low as reasonably achievable. COMPARISON: Chest x-ray July 21, 2022 HISTORY: ORDERING SYSTEM PROVIDED HISTORY: Elevated d-dimer, chest pain, dyspnea, COVID+ TECHNOLOGIST PROVIDED HISTORY: Elevated d-dimer, chest pain, dyspnea, COVID+ Decision Support Exception - unselect if not a suspected or confirmed emergency medical condition->Emergency Medical Condition (MA) FINDINGS: Pulmonary Arteries: Pulmonary arteries are adequately opacified for evaluation. No evidence of intraluminal filling defect to suggest pulmonary embolism. Main pulmonary artery is normal in caliber. Mediastinum: No evidence of mediastinal lymphadenopathy. The heart and pericardium demonstrate no acute abnormality. There is no acute abnormality of the thoracic aorta. Lungs/pleura: There is a cluster of nodules in the right upper lobe measuring up to 7 mm in diameter. These are too numerous to count and are focal. Remainder of the lungs clear. Upper Abdomen: Limited images of the upper abdomen are unremarkable. Soft Tissues/Bones: No acute bone or soft tissue abnormality. IMPRESSION: Focal nodularity right upper lobe as above. Differential considerations include infectious, inflammatory, and less likely neoplastic etiologies. Follow findings are atypical for COVID-19. [employer] Work Phone: Radiology Study observation (narrative) [facility] Work Phone: CT CHEST PULMONARY EMBOLISM W CONTRASTOrdered By: German Cutler on 07-21-2022 [facility] Work Phone: Comprehensive Metabolic Pane julián 07-21-2022 Albumin [Mass/Vol] 3.5 g/dL 3.5 - 5.2 g/dL [facility] Albumin/Globulin [Mass ratio] 1.2 {ratio} 1.0 - 2.5 [facility] ALP (Bld) [Catalytic activity/Vol] 75 U/L 35 - 104 U/L [facility] [employer] ALT [Catalytic activity/Vol] 22 U/L 5 - 33 U/L [facility] Anion gap [Moles/Vol] 9 mmol/L 9 - 17 mmol/L [facility]ALSequella [facility]ALEdai AST [Catalytic activity/Vol] 11 U/L NINF - 32 U/L [facility] Bilirubin [Mass/Vol] 0.5 mg/dL 0.3 - 1 .2 mg/dL [facility] Calcium [Mass/Vol] 9.3 mg/dL 8.6 - 10. 4 mg/dL [facility] Chloride [Moles/Vol] 103 mmol/L 98 - 10 7 mmol/L [facility] CO2 [Moles/Vol] 26 mmol/L 20 - 31 mmol/L [facility] Creatinine [Mass/Vol] 0.61 mg/dL 0.50 - 0.90 mg/dL [facility] GFR/1.73 sq M.predicted MDRD (S/P/Bld) [Vol rate/Area] - PINF [facility] Comment on above: Effective Apr 07, 2022 These results are not intended for use in patients <18 years of age. eGFR results are calculated without a race factor using the 2020 CKD-EPI equation. Careful clinical correlation is recommended, particularly when comparing to results calculated using previous equations. The CKD-EPI equation is less accurate in patients with extremes of muscle mass, extra-renal metabolism of creatine, excessive creatine ingestion, or following therapy that affects renal tubular secretion. Glucose [Mass/Vol] 117 mg/dL High 70 - 99 mg/dL [facility] Interpretation and review of laboratory results Abnormal [facility] Potassium [Moles/Vol] 3.9 mmol/L 3.7 - 5.3 mmol/L [facility] Protein [Mass/Vol] 6.5 g/dL 6.4 - 8.3 g/dL [facility] Sodium [Moles/Vol] 138 mmol/L 135 - 144 mmol/L [facility] Urea nitrogen (BldV) [Mass/Vol] 8 mg/dL 6 - 20 mg/dL [facility] Urea nitrogen/Creatinine (Bld) [Mass ratio] 13 9 - 20 [facility] D-Dimer, Quantitativeon 07-06 D-Dimer, Quant 0.75 High [facility] Comment on above: When combined with a low clinical probability, a D dimer value of <0.50 mg/L FEU is considered negative for DVT and PE (negative predictive value of 98%, sensitivity of 97%). If this test is not being used to help rule out DVT and PE, then the following reference range should be utilized: 0.00 - 0.59 mg/L FEU. The D-Dimer assay is intended for use as an aid in the diagnosis of venous thromboembolism (DVT and PE) and the results should be interpreted in conjunction with the patient's medical history, clinical presentation, and other findings. Elevated levels of D-dimer activity can be seen in any state of coagulation activation and is not recommended in patients with therapeutic dose anticoagulant therapy for >24 hours, fibrinolytic therapy within the previous 7 days, trauma or surgery within the previous 4 weeks, disseminated malignancies, aortic aneurysm, sepsis, severe infections, pneumonia, severe skin infections, liver cirrhosis, advanced age, coronary disease, diabetes, and . A very low percentage of patients with DVT may yield D-dimer results below the cutoff of 0.5 mg/L FEU. This is known to be more prevalent in patients with distal DVT. Interpretation and review of laboratory results Abnormal [facility] Rapid influenza A/B antigens on 07-21-2022 Flu A Antigen Negative NEGATIVE [facility] Comment on above: for Influenza A Anti gen Flu B Antigen Negative NEGATIVE [facility] Comment on above: for Influenza B Anti gen. [facility] Troponinon 07-21-2022 Troponin, High Sensitivity ng/L 0 - 14 ng/L [facility] Comment on above: High Sensitivity Tro ponin values cannot be compared with other Troponin methodologies. [facility] XR CHEST PORTABLEon 07-21-19 No radiographic evid ence of an acute cardiopulmonary process. [facility] EXAMINATION: ONE XRAY VIEW OF THE CHEST 07/21/2022 7:07 pm COMPARISON: 07/06/2022 and 07/14/2022. HISTORY: ORDERING SYSTEM PROVIDED HISTORY: chest pain TECHNOLOGIST PROVIDED HISTORY: chest pain FINDINGS: The lungs and costophrenic angles are clear. The cardiomediastinal silhouette and pulmonary vessels appear normal. [facility] Jr Aguero MD - 07/21/2022 EXAMINATION: ONE XRAY VIEW OF THE CHEST 07/21/2022 7:07 pm COMPARISON: 07/06/2022 and 07/14/2022. HISTORY: ORDERING SYSTEM PROVIDED HISTORY: chest pain TECHNOLOGIST PROVIDED HISTORY: chest pain FINDINGS: The lungs and costophrenic angles are clear. The cardiomediastinal silhouette and pulmonary vessels appear normal. IMPRESSION: No radiographic evidence of an acute cardiopulmonary process. [employer] Work Phone: Radiology Study observation (narrative) [employer] Work Phone: XR CHEST PORTABLEOrdered By: Jr Aguero on 07-21-2022 [employer] Work Phone: COVID-19, Rapidon 07-14-2022 SARS-CoV-2 (COVID-19) RNA ANALY+probe Ql (Unsp spec) Not detected Not Detected [employer] Comment on above: Rapid NAAT: The specimen is NEGATIVE for SARS-CoV-2, the novel coronavirus associated with COVID-19. The ID NOW COVID-19 assay is designed to detect the virus that causes COVID-19 in patients with signs and symptoms of infection who are suspected of COVID-19. An individual without symptoms of COVID-19 and who is not shedding SARS-CoV-2 virus would expect to have a negative (not detected) result in this assay. Negative results should be treated as presumptive and, if inconsistent with clinical signs and symptoms or necessary for patient management, should be tested with an alternative molecular assay. Negative results do not preclude SARS-CoV-2 infection and should not be used as the sole basis for patient management decisions. Fact sheet for Healthcare Providers: https://www.fda.gov/media/841189/download Fact sheet for Patients: https://www.fda.gov/media/821262/download Methodology: Isothermal Nucleic Acid Amplification Specimen Description .NASOPHARYNGEAL SWAB [facility] Rapid influenza A/B antigens on 07-14-2022 Flu A Antigen Negative NEGATIVE [employer] Comment on above: for Influenza A Anti gen Flu B Antigen Negative NEGATIVE [employer] Comment on above: for Influenza B Anti gen. [employer] XR CHEST PORTABLEon 07-14-19 No acute intrathorac ic process. [facility] EXAMINATION: ONE XRAY VIEW OF THE CHEST 07/14/2022 10:57 am COMPARISON: 07/06/2022 HISTORY: ORDERING SYSTEM PROVIDED HISTORY: dyspnea TECHNOLOGIST PROVIDED HISTORY: dyspnea FINDINGS: Cardiomediastinal silhouette and pulmonary vasculature are within normal limits. No focal airspace consolidation, pneumothorax, or pleural effusion. No free air beneath the diaphragm. No acute osseous abnormality. [facility] Dixie Muir DO - 07/14/2022 EXAMINATION: ONE XRAY VIEW OF THE CHEST 07/14/2022 10:57 am COMPARISON: 07/06/2022 HISTORY: ORDERING SYSTEM PROVIDED HISTORY: dyspnea TECHNOLOGIST PROVIDED HISTORY: dyspnea FINDINGS: Cardiomediastinal silhouette and pulmonary vasculature are within normal limits. No focal airspace consolidation, pneumothorax, or pleural effusion. No free air beneath the diaphragm. No acute osseous abnormality. IMPRESSION: No acute intrathoracic process. [employer] Phone: Radiology Study observation (narrative) [employer] Phone: XR CHEST PORTABLEOrdered By: Dixie Muir on 07-14-2022 [employer] Phone: XR CHEST PORTABLEon 07-06-19 No acute abnormality . [facility] EXAMINATION: ONE XRAY VIEW OF THE CHEST 07/06/2022 3:35 pm COMPARISON: None. HISTORY: ORDERING SYSTEM PROVIDED HISTORY: Cough beginning today FINDINGS: Heart size is normal. No focal consolidation in the lungs. No pleural effusion or pneumothorax. [facility] Marleny Burgos MD - 07/06/2022 EXAMINATION: ONE XRAY VIEW OF THE CHEST 07/06/2022 3:35 pm COMPARISON: None. HISTORY: ORDERING SYSTEM PROVIDED HISTORY: Cough beginning today FINDINGS: Heart size is normal. No focal consolidation in the lungs. No pleural effusion or pneumothorax. IMPRESSION: No acute abnormality. [employer] Phone: Radiology Study observation (narrative) [employer] Phone: XR CHEST PORTABLEOrdered By: Marleny Burgos on 07-06-2022 [facility] Work Phone: CBC with Auto Differentialon 06-12-2022 Absolute Eos # 0.16 [facility] Absolute Immature Granulocyte 0.03 [facility] Absolute Lymph # 2.29 [facility] Absolute Cidra # 0.50 [facility] Basophils Absolute [facility] Basophils/100 WBC (Bld) 0 % 0 - 2 % [facility] Eosinophils/100 WBC (Bld) 2 % 1 - 4 % [facility] Hematocrit (Bld) [Volume fraction] 42.6 % 36.3 - 47.1 % [facility] Hemoglobin (Bld) [Mass/Vol] 14.0 g/dL 11.9 - 15.1 g/dL [facility] Immature granulocytes/100 WBC (Bld) 0 % 0 [facility] Interpretation and review of laboratory results Abnormal [facility] Lymphocytes/100 WBC (Bld) 21 % Low 24 - 43 % [facility] MCH (RBC) [Entitic mass] 28.5 pg 25.2 - 33.5 pg [facility] MCHC (RBC) [Mass/Vol] 32.9 g/dL 28.4 - 34.8 g/dL [facility] MCV (RBC) [Entitic vol] 86.6 fL 82.6 - 102.9 fL [facility] Monocytes/100 WBC (Bld) 5 % 3 - 12 % [facility] NRBC Automated 0.0 0.0 per 100 WBC [facility] Platelet distribution width (Bld) [Ratio] 12.0 % 11.8 - 14.4 % [facility] Platelet mean volume (Bld) [Entitic vol] 9.8 fL 8.1 - 13.5 fL [facility] Platelets (Bld) [#/Vol] 352 10*3/uL [facility] RBC (Bld) [#/Vol] 4.92 10*6/uL 3.95 - 5.1 1 m/uL [facility] Segmented neutrophils/100 WBC (Bld) 72 % High 36 - 65 % [facility] Segs Absolute 7.99 [facility] WBC (Bld) [#/Vol] 11.0 10*3/uL [facility] COVID-19, Rapidon 06-12-2022 SARS-CoV-2 (COVID-19) RNA ANALY+probe Ql (Unsp spec) Not detected Not Detected [facility] Comment on above: Rapid NAAT: The specimen is NEGATIVE for SARS-CoV-2, the novel coronavirus associated with COVID-19. The ID NOW COVID-19 assay is designed to detect the virus that causes COVID-19 in patients with signs and symptoms of infection who are suspected of COVID-19. An individual without symptoms of COVID-19 and who is not shedding SARS-CoV-2 virus would expect to have a negative (not detected) result in this assay. Negative results should be treated as presumptive and, if inconsistent with clinical signs and symptoms or necessary for patient management, should be tested with an alternative molecular assay. Negative results do not preclude SARS-CoV-2 infection and should not be used as the sole basis for patient management decisions. Fact sheet for Healthcare Providers: https://www.fda.gov/media/777660/download Fact sheet for Patients: https://www.fda.gov/media/017850/download Methodology: Isothermal Nucleic Acid Amplification Specimen Description .NASOPHARYNGEAL SWAB [facility] CT ABDOMEN PELVIS W IV CONTR AST Additional Contrast? Noneon 06-12-2022 No acute pathology within the abdomen and pelvis. Appendix is normal. No obstructive uropathy. Status post cholecystectomy. [facility] CONSOL[facility] EXAMINATION: CT OF THE ABDOMEN AND PELVIS WITH CONTRAST 06/12/2022 6:15 pm TECHNIQUE: CT of the abdomen and pelvis was performed with the administration of intravenous contrast. Multiplanar reformatted images are provided for review. Automated exposure control, iterative reconstruction, and/or weight based adjustment of the mA/kV was utilized to reduce the radiation dose to as low as reasonably achievable. COMPARISON: None. HISTORY: ORDERING SYSTEM PROVIDED HISTORY: lower abd pain TECHNOLOGIST PROVIDED HISTORY: lower abd pain Decision Support Exception - unselect if not a suspected or confirmed emergency medical condition->Emergency Medical Condition (MA) FINDINGS: LOWER CHEST: Visualized portion of the lower chest demonstrates no acute abnormality. KIDNEYS AND URINARY TRACT: No renal calculi are identified. There is no evidence for hydronephrosis. The ureters are of normal course and caliber. ORGANS: Status post cholecystectomy. Visualized portions of the liver, spleen, pancreas, and adrenal glands demonstrate no acute abnormality. Status post cholecystectomy. GI/BOWEL: No bowel obstruction. No evidence of acute appendicitis. PELVIS: The bladder and pelvic organs are unremarkable. PERITONEUM/RETROPERITONE UM: No free air or free fluid is noted. No pathologically enlarged lymphadenopathy. The vasculature do not demonstrate acute abnormality. BONES/SOFT TISSUES: The osseous structures demonstrate no acute abnormality. [facility] Danisha Brock MD - 06/12/2022 EXAMINATION: CT OF THE ABDOMEN AND PELVIS WITH CONTRAST 06/12/2022 6:15 pm TECHNIQUE: CT of the abdomen and pelvis was performed with the administration of intravenous contrast. Multiplanar reformatted images are provided for review. Automated exposure control, iterative reconstruction, and/or weight based adjustment of the mA/kV was utilized to reduce the radiation dose to as low as reasonably achievable. COMPARISON: None. HISTORY: ORDERING SYSTEM PROVIDED HISTORY: lower abd pain TECHNOLOGIST PROVIDED HISTORY: lower abd pain Decision Support Exception - unselect if not a suspected or confirmed emergency medical condition->Emergency Medical Condition (MA) FINDINGS: LOWER CHEST: Visualized portion of the lower chest demonstrates no acute abnormality. KIDNEYS AND URINARY TRACT: No renal calculi are identified. There is no evidence for hydronephrosis. The ureters are of normal course and caliber. ORGANS: Status post cholecystectomy. Visualized portions of the liver, spleen, pancreas, and adrenal glands demonstrate no acute abnormality. Status post cholecystectomy. GI/BOWEL: No bowel obstruction. No evidence of acute appendicitis. PELVIS: The bladder and pelvic organs are unremarkable. PERITONEUM/RETROPERITONE UM: No free air or free fluid is noted. No pathologically enlarged lymphadenopathy. The vasculature do not demonstrate acute abnormality. BONES/SOFT TISSUES: The osseous structures demonstrate no acute abnormality. IMPRESSION: No acute pathology within the abdomen and pelvis. Appendix is normal. No obstructive uropathy. Status post cholecystectomy. [employer] Phone: Radiology Study observation (narrative) [employer] Phone: CT ABDOMEN PELVIS W IV CONTR AST Additional Contrast? NoneOrdered By: Danisha Mariee on 06-12-2022 [employer] Work Phone: Comprehensive Metabolic Pane julián 06-12-2022 Albumin [Mass/Vol] 4.3 g/dL 3.5 - 5.2 g/dL [facility] Albumin/Globulin [Mass ratio] 1.2 {ratio} 1.0 - 2.5 just[facility] ALP (Bld) [Catalytic activity/Vol] 83 U/L 35 - 104 U/L [facility] ALT [Catalytic activity/Vol] 29 U/L 5 - 33 U/L [facility] Anion gap [Moles/Vol] 8 mmol/L Low 9 - 17 mmol/L [facility] AST [Catalytic activity/Vol] 21 U/L NINF - 32 U/L [facility] Bilirubin [Mass/Vol] 0.6 mg/dL 0.3 - 1 .2 mg/dL [facility] Calcium [Mass/Vol] 9.7 mg/dL 8.6 - 10. 4 mg/dL [facility] Chloride [Moles/Vol] 100 mmol/L 98 - 10 7 mmol/L [facility] CO2 [Moles/Vol] 27 mmol/L 20 - 31 mmol/L [facility] Creatinine [Mass/Vol] 0.68 mg/dL 0.50 - 0.90 mg/dL [facility] GFR/1.73 sq M.predicted MDRD (S/P/Bld) [Vol rate/Area] - PINF [facility] Comment on above: Effective Apr 07, 2022 These results are not intended for use in patients <18 years of age. eGFR results are calculated without a race factor using the 2020 CKD-EPI equation. Careful clinical correlation is recommended, particularly when comparing to results calculated using previous equations. The CKD-EPI equation is less accurate in patients with extremes of muscle mass, extra-renal metabolism of creatine, excessive creatine ingestion, or following therapy that affects renal tubular secretion. Glucose [Mass/Vol] 91 mg/dL 70 - 99 mg/dL [facility] Interpretation and review of laboratory results Abnormal [facility] Potassium [Moles/Vol] 4.0 mmol/L 3.7 - 5.3 mmol/L [facility] Protein [Mass/Vol] 7.9 g/dL 6.4 - 8.3 g/dL [facility] Sodium [Moles/Vol] 135 mmol/L 135 - 144 mmol/L [facility] Urea nitrogen (BldV) [Mass/Vol] 12 mg/dL 6 - 20 mg/dL [facility] Urea nitrogen/Creatinine (Bld) [Mass ratio] 18 9 - 20 [facility] Lipaseon 06-12-2022 Lipase [Catalytic activity/Vol] 23 U/L 13 - 60 U/L [facility] Microscopic Urinalysison Bacteria, UA 2+ Abnormal None [facility] Epithelial Cells UA 5 TO 10 [facility] RBC, UA 0 TO 2 [facility] WBC, UA 0 TO 2 [facility] No Panel Informationon 06-12 [facility] Interpretation and review of laboratory results Abnormal [facility] , Urineon Beta HCG ( test) Ql (U) Negative NEGATIVE [facility] Comment on above: Specimens with hCG l evels near the threshold of the test (25 mIU/mL) may give a negative or indeterminate result. In such cases, another test should be performed with a new specimen in 48-72 hours. If early is suspected clinically in this setting, correlation with quantitative serum b-hCG level is suggested. [facility] use of plasma for this test. This has not been cleared or approved by the U.S. Food and Drug Administration. The FDA has determined that such clearance is not necessary. [facility] Rapid influenza A/B antigens on 06-12-2022 Flu A Antigen Negative NEGATIVE [facility] Comment on above: for Influenza A Anti gen Flu B Antigen Negative NEGATIVE [facility] Comment on above: for Influenza B Anti gen. [facility] Urinalysis with Reflex to Cu ltureon 06-12-2022 Bilirubin Urine Negative NEGATIVE [facility] Color, UA Yellow Yellow [facility] Glucose, Ur Negative NEGATIVE [facility] Ketones Ql (U) Negative NEGATIVE [facility] Leukocyte esterase Test strip Ql (U) Negative NEGATIVE [facility] Nitrite, Urine Negative NEGATIVE [facility] pH, UA 5.5 5.0 - 9.0 [facility] Protein, UA Negative NEGATIVE [facility] Specific [place], UA High 1.010 - 1.020 [facility] Turbidity UA SLIGHTLY CLOUDY Abnormal Clear [facility] Urine Hgb Negative NEGATIVE [facility] Urobilinogen, Urine Normal Normal [facility] CT HEAD WO CONTRASTon 2021 No acute intracrania l abnormality. No acute territorial infarction, intracranial hemorrhage or mass lesion. [facility] EXAMINATION: CT OF THE HEAD WITHOUT CONTRAST 05/01/2022 4:41 pm TECHNIQUE: CT of the head was performed without the administration of intravenous contrast. Automated exposure control, iterative reconstruction, and/or weight based adjustment of the mA/kV was utilized to reduce the radiation dose to as low as reasonably achievable. COMPARISON: None. HISTORY: ORDERING SYSTEM PROVIDED HISTORY: Mechanical fall head trauma TECHNOLOGIST PROVIDED HISTORY: Mechanical fall head trauma Decision Support Exception - unselect if not a suspected or confirmed emergency medical condition->Emergency Medical Condition (MA) Is the patient ?->No FINDINGS: BRAIN/VENTRICLES: There is no acute intracranial hemorrhage, mass effect or midline shift. No abnormal extra-axial fluid collection. The panda-white differentiation is maintained without evidence of an acute infarct. There is no evidence of hydrocephalus. ORBITS: The visualized portion of the orbits demonstrate no acute abnormality. SINUSES: The visualized paranasal sinuses and mastoid air cells demonstrate no acute abnormality. SOFT TISSUES/SKULL: No acute abnormality of the visualized skull or soft tissues. [facility] Danisha Mariee MD - 05/01/2022 EXAMINATION: CT OF THE HEAD WITHOUT CONTRAST 05/01/2022 4:41 pm TECHNIQUE: CT of the head was performed without the administration of intravenous contrast. Automated exposure control, iterative reconstruction, and/or weight based adjustment of the mA/kV was utilized to reduce the radiation dose to as low as reasonably achievable. COMPARISON: None. HISTORY: ORDERING SYSTEM PROVIDED HISTORY: Mechanical fall head trauma TECHNOLOGIST PROVIDED HISTORY: Mechanical fall head trauma Decision Support Exception - unselect if not a suspected or confirmed emergency medical condition->Emergency Medical Condition (MA) Is the patient ?->No FINDINGS: BRAIN/VENTRICLES: There is no acute intracranial hemorrhage, mass effect or midline shift. No abnormal extra-axial fluid collection. The panda-white differentiation is maintained without evidence of an acute infarct. There is no evidence of hydrocephalus. ORBITS: The visualized portion of the orbits demonstrate no acute abnormality. SINUSES: The visualized paranasal sinuses and mastoid air cells demonstrate no acute abnormality. SOFT TISSUES/SKULL: No acute abnormality of the visualized skull or soft tissues. IMPRESSION: No acute intracranial abnormality. No acute territorial infarction, intracranial hemorrhage or mass lesion. [employer] Phone: Radiology Study observation (narrative) [employer] Phone: CT HEAD WO CONTRASTOrdered B y: Danisha Mariee on 05-01-2022 [employer] Phone: No Panel Informationon 05-01 Sacrum and coccyx: N o fracture. Lumbar spine: Age indeterminate anterior wedging of T12 vertebral body with 10-20% height loss. Well-defined / well corticated ossific fragment is noted adjacent to the anterosuperior corner of L1. The finding is either suggestive of limbus configuration or sequela to old trauma.. Right ankle: No fracture. [facility] EXAMINATION: THREE XRAY VIEWS OF THE SACRUM/COCCYX; XRAY VIEWS OF THE LUMBAR SPINE; THREE XRAY VIEWS OF THE RIGHT ANKLE 05/01/2022 4:52 pm COMPARISON: None. HISTORY: ORDERING SYSTEM PROVIDED HISTORY: Fall TECHNOLOGIST PROVIDED HISTORY: Fall FINDINGS: Sacrum and coccyx: No fracture or dislocation is detected. Hip joint spaces are well preserved and anatomically aligned. No SI joint or pubic symphysis abnormality is identified. No focal lytic or sclerotic lesion is detected. The sacrum is unremarkable. Lumbar spine: There are 5 nonrib-bearing lumbar vertebrae. Lumbar lordosis is well preserved.Age indeterminate anterior wedging of T12 vertebral body with 10-20% height loss. Well-defined and well corticated ossific fragment is noted adjacent to the anterosuperior corner of L1. The finding is either suggestive of limbus configuration or sequela to old trauma.. The vertebral body heights are otherwise well preserved. No concerning lytic or sclerotic lesions are identified. The other visualized soft tissues and osseous structures appear unremarkable. Right ankle: No acute fracture or dislocation is detected. The osseous structures are intact and properly aligned. Talar dome is intact. Ankle mortise is congruent. No concerning lytic or sclerotic lesion is identified. The visualized joints appear unremarkable. [facility] Danisha Brock MD - 05/01/2022 EXAMINATION: THREE XRAY VIEWS OF THE SACRUM/COCCYX; XRAY VIEWS OF THE LUMBAR SPINE; THREE XRAY VIEWS OF THE RIGHT ANKLE 05/01/2022 4:52 pm COMPARISON: None. HISTORY: ORDERING SYSTEM PROVIDED HISTORY: Fall TECHNOLOGIST PROVIDED HISTORY: Fall FINDINGS: Sacrum and coccyx: No fracture or dislocation is detected. Hip joint spaces are well preserved and anatomically aligned. No SI joint or pubic symphysis abnormality is identified. No focal lytic or sclerotic lesion is detected. The sacrum is unremarkable. Lumbar spine: There are 5 nonrib-bearing lumbar vertebrae. Lumbar lordosis is well preserved.Age indeterminate anterior wedging of T12 vertebral body with 10-20% height loss. Well-defined and well corticated ossific fragment is noted adjacent to the anterosuperior corner of L1. The finding is either suggestive of limbus configuration or sequela to old trauma.. The vertebral body heights are otherwise well preserved. No concerning lytic or sclerotic lesions are identified. The other visualized soft tissues and osseous structures appear unremarkable. Right ankle: No acute fracture or dislocation is detected. The osseous structures are intact and properly aligned. Talar dome is intact. Ankle mortise is congruent. No concerning lytic or sclerotic lesion is identified. The visualized joints appear unremarkable. IMPRESSION: Sacrum and coccyx: No fracture. Lumbar spine: Age indeterminate anterior wedging of T12 vertebral body with 10-20% height loss. Well-defined / well corticated ossific fragment is noted adjacent to the anterosuperior corner of L1. The finding is either suggestive of limbus configuration or sequela to old trauma.. Right ankle: No fracture. [employer] Phone: [employer] Phone: XR ANKLE RIGHT (MIN 3 VIEWS) on 05-01-2022 Radiology Study observation (narrative) [employer] Phone: XR LUMBAR SPINE (2-3 VIEWS)o n 05-01-2022 Radiology Study observation (narrative) [employer] Phone: XR SACRUM COCCYX (MIN 2 VIEW S)on 05-01-2022 Radiology Study observation (narrative) [employer] Phone: XR SPINE LUMBOSACRAL 5 VIEWS on 02-12-2022 XR SPINE LUMBOSACRAL 5 VIEWS EXAM: XR SPINE LUMBOSACRAL 4 VIEWS, 02/12/2022 15:04 PM COMPARISON: No prior studies available for comparison. CLINICAL INDICATIONS: back pain RELEVANT CLINICAL HISTORY: M54.16:Lumbar radiculopathy AP, Lat, Flex, Ext; FINDINGS: 5 images obtained. Vertebral: There are 5 typical lumbar spine vertebral bodies in anatomic alignment. No compression deformity. No spondylolysis. No instability is seen on flexion or extension views. Disc: Degenerative disc disease is seen at T12-L1 and L5-S1. Joint: Facet joints appear anatomically aligned with lower lumbar facet arthrosis. IMPRESSION: No instability on flexion or extension views. T12-L1 and L5-S1 degenerative disc disease. Lower lumbar facet arthrosis. Normal [facility] XR Spine Lumbar and Sacrum 5 Viewson 02-12-2022 IMPRESSION: No instability on flexion or extension views. T12-L1 and L5-S1 degenerative disc disease. Lower lumbar facet arthrosis. OLOGY EXAM: XR SPINE LUMBOSACRAL 4 VIEWS, 02/12/2022 15:04 PM COMPARISON: No prior studies available for comparison. CLINICAL INDICATIONS: back pain RELEVANT CLINICAL HISTORY: M54.16:Lumbar radiculopathy AP, Lat, Flex, Ext; FINDINGS: 5 images obtained. Vertebral: There are 5 typical lumbar spine vertebral bodies in anatomic alignment. No compression deformity. No spondylolysis. No instability is seen on flexion or extension views. Disc: Degenerative disc disease is seen at T12-L1 and L5-S1. Joint: Facet joints appear anatomically aligned with lower lumbar facet arthrosis. RADIOLOGY Favio Richards MD - 02/12/2022 EXAM: XR SPINE LUMBOSACRAL 4 VIEWS, 02/12/2022 15:04 PM COMPARISON: No prior studies available for comparison. CLINICAL INDICATIONS: back pain RELEVANT CLINICAL HISTORY: M54.16:Lumbar radiculopathy AP, Lat, Flex, Ext; FINDINGS: 5 images obtained. Vertebral: There are 5 typical lumbar spine vertebral bodies in anatomic alignment. No compression deformity. No spondylolysis. No instability is seen on flexion or extension views. Disc: Degenerative disc disease is seen at T12-L1 and L5-S1. Joint: Facet joints appear anatomically aligned with lower lumbar facet arthrosis. IMPRESSION IMPRESSION: No instability on flexion or extension views. T12-L1 and L5-S1 degenerative disc disease. Lower lumbar facet arthrosis. [facility] Radiology Study observation (narrative) [facility] XR Spine Lumbar and Sacrum 5 ViewsOrdered By: Favio Richards on 02-12-2022 [facility] Work Phone: Neurosurgery Office/Clinic N oteon 01-23-2022 Neurosurgery Office/Clinic Note Chief Complaint Patient is being seen for back, pain radiating down left leg History of Present Illness This is a 26 year old female seen in referral at the request of Deborah Marquis CNP for left L5-S1 radiculopathy. She has had low back pain for 2-3 years. About a year ago she woke up with numbness in the left lateral thigh, and her symptoms progressively worsened since then. She has constant pain across the low back, worse on the left. The pain radiates to the left lateral thigh and calf, and into the left dorsal foot. The back pain is constant, sharp and 4?9 in severity. The left lower extremity pain is intermittent, sharp and 8/10 in severity. She has numbness in the left lateral thigh and intermittent numbness and tingling in the toes. The low back pain is 80%, left leg pain 20%. No symptoms on the right. No bladder or bowel dysfunction. She tried PT for 6 weeks at [facility], therapy made her symptoms worse. She has had multiple injections by Dr. Ledezma with pain management, helped briefly at most. Back: Pain x 2-3 years, constant, sharp, 4?9/10. Worse with bending, sitting for a long time. Low back pain 80% Legs: Intermittent pain left lateral hip, thigh, calf into the dorsal foot, 8/10. Numbness left lateral thigh, intermittent numbness and tingling in the left toes. No symptoms on the right. No bladder or bowel dysfunction. Care team: Dr. Ledezma, pain management Yohan James, PROFESSIONAL PROGRAMMER ANALYST, primary care Conservative treatments: PT x 6 weeks, made symptoms worse. Massage, home exercises, tens unit, anti-inflammatory medications. Injections include the left L5-S1 TFESI, B/L L3?4?5 RFA, MBB L3?4?5, LESI. Medical history: as listed Social history: Single. No tobacco, rare alcohol use. She does have a medical marijuana. Medications: As listed, includes medical marijuana Surgical history: No prior spine surgery Family history: As listed Imaging: MRI 06/12/2021 (report): L5-S1 moderate bilateral facet arthropathy. EMG 01/03/2022: Left acute on chronic L5-S1 radiculopathy Review of Systems General Adult ROS Fatigue: No Weakness: No Cardiovascular EENMT Gastrointestinal Genitourinary Hematologic/Lymphatic Musculoskeletal Back pain: Yes Neurological Psychiatric Respiratory Skin Physical Exam Vitals & Measurements BP: 120/88 HT: 175 cm WT: 157.5 kg WT: 157.5 kg (Dosing) BMI: 51.43 Additional Vitals BP Position/Location: Sitting, Left arm General: Alert and oriented, morbidly obese, no acute distress. Eye: Normal conjunctiva, no scleral icterus. HENT: Normocephalic, atraumatic, oral mucosa pink and moist. Neck: Supple. Pulmonary: Clear to auscultation, non-labored respiration. Cardiovascular: Normal rate, regular rhythm, no murmur, no edema. Abdomen: Soft, nontender Skin: Normal temperature and texture. Psychiatric: Appropriate judgment and insight, appropriate mood and affect. NEURO EXAM: Pupils are equal bilaterally and reactive to light. No eye deviation at primary gaze. Extraocular movements are full. Face is symmetric, facial sensation intact, tongue midline Hearing is intact to finger rub Motor: Upper Extremity Strength: 5/5 Lower Extremity Strength: 5/5 Reflexes: Reflexes of the upper extremities are 1+ Reflexes of the lower extremities are absent patellar, Achilles Schumacher?s sign is negative. No clonus. Sensation: Grossly intact to light touch throughout Gait: Posture is normal. Gait is steady. Base and stride normal. Able to walk on heels and toes. Musculoskeletal: Spine: no visible deformities or step offs Tender to palpation in the lower midline lumbar spine Lumbar flexion and extension intact, both elicit pain Straight leg raising negative Assessment/Plan Assessment: 1. LBP x 2-3 years, progressive, with left lower extremity radiculopathy. LBP 80%. 2. MRI 06/12/2021 (report): L5-S1 moderate bilateral facet arthropathy. 3. EMG 01/03/2022: Left acute on chronic L5-S1 radiculopathy 4. Morbid obesity, BMI 51 Plan: 1. Refer to Dr. Baxter in [place] for possible surgery 2. Follow-up with us on an as-needed basis We discussed the MRI report, unfortunately the imaging was unavailable for us to review. She has also had a new MRI which she was told shows progression of her disease. She has failed conservative treatment which included 6 weeks of formal PT as well as multiple medications. We also discussed possible surgery, however she is at a higher risk of complications due to morbid obesity and BMI of 51. I explained to her that we recommend referral to a tertiary center to discuss surgery. She is in agreement. I also asked her to have all imaging put on a disc and take that to her appointment in [place]. All questions were answered. Time Spent with the Patient I have personally spent 40 minutes on this date, directly related to today's patient visit, including pre and post visit work, for this date of service. Time listed does not include time spent (more content not included)... Normal [facility] Provider Letteron 01-23-2022 Provider Letter (Inserted Image. Petrona ble to display) THOM Jimenez [address] [address] ATTN: [place] [address] Re: Oswald Cox Date of Visit: 01/23/2022 Dear Deborah TOMAS, Thank you for your referral and allowing me to contribute to the care of your patient: Oswald Cox. Attached is my office note where you will find my assessment and recommendations from our encounter. My office?s contact information: [facility] [address], [place], [phone] Fax: [phone] Let me know if you have any questions or concerns. Sincerely, LESLI Rojas Providers: Yohan James The following document(s) were included in the letter: January 23, 2022 09:09:05 EDT - (01/23/2022) Neurosurgery Office Visit Note Normal [facility] MRI LUMBAR SPINE WO CONTRAST on 12-24-2021 At L5-S1, mild bilat eral neural foraminal narrowing No canal stenosis. No nerve impingement. No significant posterior disc pathology. [facility] EXAMINATION: MRI OF THE LUMBAR SPINE WITHOUT CONTRAST, 12/24/2021 1:57 pm TECHNIQUE: Multiplanar multisequence MRI of the lumbar spine was performed without the administration of intravenous contrast. COMPARISON: None. HISTORY: ORDERING SYSTEM PROVIDED HISTORY: Lumbar radiculitis TECHNOLOGIST PROVIDED HISTORY: Weakness in the left lower extermity FINDINGS: BONES/ALIGNMENT: There is normal alignment of the spine. The vertebral body heights are maintained. The bone marrow signal appears unremarkable. SPINAL CORD: The conus terminates normally. SOFT TISSUES: No paraspinal mass identified. L1-L2: There is no significant disc herniation, spinal canal stenosis or neural foraminal narrowing. L2-L3: There is no significant disc herniation, spinal canal stenosis or neural foraminal narrowing. L3-L4: There is no significant disc herniation, spinal canal stenosis or neural foraminal narrowing. Subtle retrolisthesis. L4-L5: There is no significant disc herniation, spinal canal stenosis or neural foraminal narrowing. Subtle retrolisthesis. Mild bilateral facet arthropathy. L5-S1: Mild loss of disc signal. Subtle disc bulging. Mild bilateral facet arthropathy. Mild bilateral neural foraminal narrowing. [facility] Danisha Mariee MD - 12/24/2021 EXAMINATION: MRI OF THE LUMBAR SPINE WITHOUT CONTRAST, 12/24/2021 1:57 pm TECHNIQUE: Multiplanar multisequence MRI of the lumbar spine was performed without the administration of intravenous contrast. COMPARISON: None. HISTORY: ORDERING SYSTEM PROVIDED HISTORY: Lumbar radiculitis TECHNOLOGIST PROVIDED HISTORY: Weakness in the left lower extermity FINDINGS: BONES/ALIGNMENT: There is normal alignment of the spine. The vertebral body heights are maintained. The bone marrow signal appears unremarkable. SPINAL CORD: The conus terminates normally. SOFT TISSUES: No paraspinal mass identified. L1-L2: There is no significant disc herniation, spinal canal stenosis or neural foraminal narrowing. L2-L3: There is no significant disc herniation, spinal canal stenosis or neural foraminal narrowing. L3-L4: There is no significant disc herniation, spinal canal stenosis or neural foraminal narrowing. Subtle retrolisthesis. L4-L5: There is no significant disc herniation, spinal canal stenosis or neural foraminal narrowing. Subtle retrolisthesis. Mild bilateral facet arthropathy. L5-S1: Mild loss of disc signal. Subtle disc bulging. Mild bilateral facet arthropathy. Mild bilateral neural foraminal narrowing. IMPRESSION: At L5-S1, mild bilateral neural foraminal narrowing No canal stenosis. No nerve impingement. No significant posterior disc pathology. [employer] Phone: Radiology Study observation (narrative) [employer] Phone: MRI LUMBAR SPINE WO CONTRAST Ordered By: Danisha Mariee on 12-24-2021 [employer] Phone: XR HIP 2-3 VW W PELVIS LEFTo n 11-12-2021 No acute fracture or malalignment. [facility] EXAMINATION: ONE XRAY VIEW OF THE PELVIS AND TWO XRAY VIEWS LEFT HIP 11/12/2021 2:31 am COMPARISON: None. HISTORY: ORDERING SYSTEM PROVIDED HISTORY: Left hip pain TECHNOLOGIST PROVIDED HISTORY: pain FINDINGS: Bones: No acute fracture. No aggressive osseous lesion. Joints: No dislocation of the left hip. Normal alignment the right hip in the AP view. Soft tissues: No acute abnormality identified. [facility] Florentin Saravia MD - 11/12/2021 EXAMINATION: ONE XRAY VIEW OF THE PELVIS AND TWO XRAY VIEWS LEFT HIP 11/12/2021 2:31 am COMPARISON: None. HISTORY: ORDERING SYSTEM PROVIDED HISTORY: Left hip pain TECHNOLOGIST PROVIDED HISTORY: pain FINDINGS: Bones: No acute fracture. No aggressive osseous lesion. Joints: No dislocation of the left hip. Normal alignment the right hip in the AP view. Soft tissues: No acute abnormality identified. IMPRESSION: No acute fracture or malalignment. [email or web address] Work Phone: Radiology Study observation (narrative) [employer] Phone: XR HIP 2-3 VW W PELVIS LEFTO rdered By: Florentin Saravia on 11-12-2021 [employer]680 Phone: CT Cervical Spine WO Contras ton 08-04-2021 Radiology Study observation (narrative) [employer] Phone: CT Head WO Contraston 2021 Radiology Study observation (narrative) [employer] Phone: HCG Qualitative, Serumon hCG Qual Negative NEGATIVE [email or web address] Comment on above: Specimens with hCG l evels near the threshold of the test (25 mIU/mL) may give a negative or indeterminate result. In such cases, another test should be performed with a new specimen in 48-72 hours. If early is suspected clinically in this setting, correlation with quantitative serum b-hCG level is suggested. [employer] has confirmed the use of plasma for this test. This has not been cleared or approved by the U.S. Food and Drug Administration. The FDA has determined that such clearance is not necessary. [email or web address] No Panel Informationon 08-04 No acute intracrania l abnormality. No acute fracture or subluxation in the cervical spine. Questionable tiny is thyroid nodules, amenable to further evaluation by ultrasound. [facility] EXAMINATION: CT OF THE HEAD WITHOUT CONTRAST; CT OF THE CERVICAL SPINE WITHOUT CONTRAST 08/04/2021 1:42 am TECHNIQUE: CT of the head was performed without the administration of intravenous contrast. Dose modulation, iterative reconstruction, and/or weight based adjustment of the mA/kV was utilized to reduce the radiation dose to as low as reasonably achievable.; CT of the cervical spine was performed without the administration of intravenous contrast. Multiplanar reformatted images are provided for review. Dose modulation, iterative reconstruction, and/or weight based adjustment of the mA/kV was utilized to reduce the radiation dose to as low as reasonably achievable. COMPARISON: None. HISTORY: ORDERING SYSTEM PROVIDED HISTORY: Pain after fall TECHNOLOGIST PROVIDED HISTORY: fall Decision Support Exception - unselect if not a suspected or confirmed emergency medical condition->Emergency Medical Condition (MA) Is the patient ?->No FINDINGS: Head: BRAIN/VENTRICLES: There is no acute intracranial hemorrhage, mass effect or midline shift. No abnormal extra-axial fluid collection. The panda-white differentiation is maintained without evidence of an acute infarct. There is no evidence of hydrocephalus. ORBITS: The visualized portion of the orbits demonstrate no acute abnormality. SINUSES: The visualized paranasal sinuses and mastoid air cells demonstrate no acute abnormality. SOFT TISSUES/SKULL: No acute abnormality of the visualized skull or soft tissues. Cervical spine: BONES/ALIGNMENT: There is no acute fracture or traumatic malalignment. Slight reversal of normal cervical lordosis is noted. DEGENERATIVE CHANGES: No significant degenerative changes. SOFT TISSUES: There is no prevertebral soft tissue swelling. The thyroid gland is heterogeneous and may contain tiny nodules. Ultrasound may be obtained for further evaluation. No apical pneumothorax. [facility] Luciano Carmen MD - 08/04/2021 EXAMINATION: CT OF THE HEAD WITHOUT CONTRAST; CT OF THE CERVICAL SPINE WITHOUT CONTRAST 08/04/2021 1:42 am TECHNIQUE: CT of the head was performed without the administration of intravenous contrast. Dose modulation, iterative reconstruction, and/or weight based adjustment of the mA/kV was utilized to reduce the radiation dose to as low as reasonably achievable.; CT of the cervical spine was performed without the administration of intravenous contrast. Multiplanar reformatted images are provided for review. Dose modulation, iterative reconstruction, and/or weight based adjustment of the mA/kV was utilized to reduce the radiation dose to as low as reasonably achievable. COMPARISON: None. HISTORY: ORDERING SYSTEM PROVIDED HISTORY: Pain after fall TECHNOLOGIST PROVIDED HISTORY: fall Decision Support Exception - unselect if not a suspected or confirmed emergency medical condition->Emergency Medical Condition (MA) Is the patient ?->No FINDINGS: Head: BRAIN/VENTRICLES: There is no acute intracranial hemorrhage, mass effect or midline shift. No abnormal extra-axial fluid collection. The panda-white differentiation is maintained without evidence of an acute infarct. There is no evidence of hydrocephalus. ORBITS: The visualized portion of the orbits demonstrate no acute abnormality. SINUSES: The visualized paranasal sinuses and mastoid air cells demonstrate no acute abnormality. SOFT TISSUES/SKULL: No acute abnormality of the visualized skull or soft tissues. Cervical spine: BONES/ALIGNMENT: There is no acute fracture or traumatic malalignment. Slight reversal of normal cervical lordosis is noted. DEGENERATIVE CHANGES: No significant degenerative changes. SOFT TISSUES: There is no prevertebral soft tissue swelling. The thyroid gland is heterogeneous and may contain tiny nodules. Ultrasound may be obtained for further evaluation. No apical pneumothorax. IMPRESSION: No acute intracranial abnormality. No acute fracture or subluxation in the cervical spine. Questionable tiny is thyroid nodules, amenable to further evaluation by ultrasound. via680 Phone: No Panel InformationOrdered By: Luciano Carmen on 08-04-2021 via680 Phone: Basic Metabolic Panel w/ Ref michael to MGOrdered By: Leonard Reyes on 04-08-2021 Anion gap [Moles/Vol] 11 mmol/L 9 - 17 mmol/L via680 Phone: Calcium [Mass/Vol] 9.1 mg/dL 8.6 - 10. 4 mg/dL via680 Phone: Chloride [Moles/Vol] 104 mmol/L 98 - 10 7 mmol/L via680 Phone: CO2 [Moles/Vol] 25 mmol/L 20 - 31 mmol/L via680 Phone: Creatinine [Mass/Vol] 0.59 mg/dL 0.50 - 0.90 mg/dL via680 Phone: GFR >60 >60 mL/min [employer] Phone: GFR Non- >60 >60 mL/min [email or web address] Work Phone: Glucose [Mass/Vol] 90 mg/dL 70 - 99 mg/dL [email or web address] Work Phone: Potassium [Moles/Vol] 4.1 mmol/L 3.7 - 5.3 mmol/L [email or web address] Work Phone: Sodium [Moles/Vol] 140 mmol/L 135 - 144 mmol/L [email or web address] Work Phone: Urea nitrogen (BldV) [Mass/Vol] 9 mg/dL 6 - 20 mg/dL [email or web address] Work Phone: Urea nitrogen/Creatinine (Bld) [Mass ratio] 15 [email or web address] Work Phone: [email or web address] Work Phone: CBC Auto DifferentialOrdered By: Leonard Ryees on 04-08-2021 Absolute Eos # 0.25 [email or web address] [facility] Work Phone: Absolute Immature Granulocyte 0.03 [email or web address] Work Phone: Absolute Lymph # 2.55 [email or web address] [facility] Work Phone: Absolute [place] # 0.61 [employer] [facility] Work Phone: Basophils (Bld) [#/Vol] 10*3/uL [email or web address] Work Phone: Basophils/100 WBC (Bld) 0 % 0 - 2 % [email or web address] Work Phone: Differential Type NOT REPORTED [email or web address] Work Phone: Eosinophils/100 WBC (Bld) 2 % 1 - 4 % [email or web address] Work Phone: Hematocrit (Bld) [Volume fraction] 41.1 % 36.3 - 47.1 % [email or web address] Work Phone: Hemoglobin.gastrointe stinal spec 1 Ql (Stl) 12.7 g/dL 11.9 - 15.1 g/dL via680 Phone: Immature granulocytes/100 WBC (Bld) 0 % 0 via680 Phone: Interpretation and review of laboratory results Abnormal [employer] Phone: Lymphocytes/100 WBC (Bld) 23 % Low 24 - 43 % via680 Phone: MCH (RBC) [Entitic mass] 27.5 pg 25.2 - 33.5 pg via680 Phone: MCHC (RBC) [Mass/Vol] 30.9 g/dL 28.4 - 34.8 g/dL via680 Phone: MCV (RBC) [Entitic vol] 89.2 fL 82.6 - 102.9 fL via680 Phone: Monocytes/100 WBC (Bld) 6 % 3 - 12 % [employer] Phone: NRBC Automated 0.0 0.0 per 100 WBC [employer] Phone: Platelet distribution width (Bld) [Ratio] 12.9 % 11.8 - 14.4 % [employer]680 Phone: Platelet Estimate NOT REPORTED [employer]680 Phone: Platelet mean volume (Bld) [Entitic vol] 9.9 fL 8.1 - 13.5 fL [employer]680 Phone: Platelets (Bld) [#/Vol] 326 10*3/uL [employer] Phone: RBC (Bld) [#/Vol] 4.61 10*6/uL 3.95 - 5.1 1 m/uL [employer]680 Phone: RBC (Bld) [#/Vol] NOT REPORTED via680 Phone: Segmented neutrophils/100 WBC (Bld) 69 % High 36 - 65 % via680 Phone: Segs Absolute 7.60 [employer] Work Phone: WBC (Bld) [#/Vol] 11.1 10*3/uL via680 Phone: WBC (Bld) [#/Vol] NOT REPORTED via680 Phone: via680 Phone: CT CHEST PULMONARY EMBOLISM W CONTRASTOrdered By: Leonard Reyes on 04-08-2021 Negative CTA chest w ith no evidence of pulmonary embolism or significant pulmonary abnormality. Likely hepatic fatty infiltration. via680 Phone: EXAMINATION: CTA OF THE CHEST 04/08/2021 3:27 pm TECHNIQUE: CTA of the chest was performed after the administration of intravenous contrast. Multiplanar reformatted images are provided for review. MIP images are provided for review. Dose modulation, iterative reconstruction, and/or weight based adjustment of the mA/kV was utilized to reduce the radiation dose to as low as reasonably achievable. COMPARISON: 07/17/2020 HISTORY: ORDERING SYSTEM PROVIDED HISTORY: left side back pain and elevated d-dimer FINDINGS: Pulmonary Arteries: Pulmonary arteries are adequately opacified for evaluation though assessment of distal subsegmental vessels is limited. No evidence of intraluminal filling defect to suggest pulmonary embolism. Main pulmonary artery is normal in caliber. Mediastinum: No evidence of mediastinal lymphadenopathy. Normal heart size. Normal thoracic aorta. Lungs/pleura: Minimal left lower lobe dependent/nodular subsegmental atelectasis. No focal consolidation or pulmonary edema. No evidence of pleural effusion or pneumothorax. Upper Abdomen: Likely hepatic fatty infiltration. Cholecystectomy. Soft Tissues/Bones: No acute bone or soft tissue abnormality. via680 Phone: Lanre, [facility] Incoming Radiant Results From [facility] - 04/08/2021 4:10 PM EDT EXAMINATION: CTA OF THE CHEST 04/08/2021 3:27 pm TECHNIQUE: CTA of the chest was performed after the administration of intravenous contrast. Multiplanar reformatted images are provided for review. MIP images are provided for review. Dose modulation, iterative reconstruction, and/or weight based adjustment of the mA/kV was utilized to reduce the radiation dose to as low as reasonably achievable. COMPARISON: 07/17/2020 HISTORY: ORDERING SYSTEM PROVIDED HISTORY: left side back pain and elevated d-dimer FINDINGS: Pulmonary Arteries: Pulmonary arteries are adequately opacified for evaluation though assessment of distal subsegmental vessels is limited. No evidence of intraluminal filling defect to suggest pulmonary embolism. Main pulmonary artery is normal in caliber. Mediastinum: No evidence of mediastinal lymphadenopathy. Normal heart size. Normal thoracic aorta. Lungs/pleura: Minimal left lower lobe dependent/nodular subsegmental atelectasis. No focal consolidation or pulmonary edema. No evidence of pleural effusion or pneumothorax. Upper Abdomen: Likely hepatic fatty infiltration. Cholecystectomy. Soft Tissues/Bones: No acute bone or soft tissue abnormality. IMPRESSION: Negative CTA chest with no evidence of pulmonary embolism or significant pulmonary abnormality. Likely hepatic fatty infiltration. via680 Phone: via680 Phone: D-Dimer, QuantitativeOrdered By: Leonard Reyes on 04-08-2021 D-Dimer, Quant 0.87 [employer] Work Phone: Comment on above: When combined with a low clinical probability, a D dimer value of <0.50 mg/L FEU is considered negative for DVT and PE (negative predictive value of 98%, sensitivity of 97%). If this test is not being used to help rule out DVT and PE, then the following reference range should be utilized: 0.00 - 0.59 mg/L FEU. The D-Dimer assay is intended for use as an aid in the diagnosis of venous thromboembolism (DVT and PE) and the results should be interpreted in conjunction with the patient's medical history, clinical presentation, and other findings. Elevated levels of D-dimer activity can be seen in any state of coagulation activation and is not recommended in patients with therapeutic dose anticoagulant therapy for >24 hours, fibrinolytic therapy within the previous 7 days, trauma or surgery within the previous 4 weeks, disseminated malignancies, aortic aneurysm, sepsis, severe infections, pneumonia, severe skin infections, liver cirrhosis, advanced age, coronary disease, diabetes, and . A very low percentage of patients with DVT may yield D-dimer results below the cutoff of 0.5 mg/L FEU. This is known to be more prevalent in patients with distal DVT. Interpretation and review of laboratory results Abnormal via680 Phone: via680 Phone: Laboratory - Chemistry and C hemistry - challengeOrdered By: Leonard Reyes on 04-08-2021 GFR/1.73 sq M.predicted MDRD (S/P/Bld) [Vol rate/Area] via680 Phone: Comment on above: Average GFR for 20-2 9 years old: 116 mL/min/1.73sq m Chronic Kidney Disease: <60 mL/min/1.73sq m Kidney failure: <15 mL/min/1.73sq m eGFR calculated using average adult body mass. Additional eGFR calculator available at: http://[email or web address]_crcl_2012.htm Stage 1: Some kidney damage normal GFR Stage 2: Mild kidney damage GFR 60-89 Stage 3: Moderate kidney damage GFR 30-59 Stage 4: Severe kidney damage GFR 15-29 Stage 5: Severe kidney damage GFR <15 ESRD - chronic treatment by dialysis or transplant , UrineOrdered By: Leonard Reyes on 04-08-2021 Beta HCG ( test) Ql (U) Negative NEGATIVE via680 Phone: Comment on above: Specimens with hCG l evels near the threshold of the test (25 mIU/mL) may give a negative or indeterminate result. In such cases, another test should be performed with a new specimen in 48-72 hours. If early is suspected clinically in this setting, correlation with quantitative serum b-hCG level is suggested. [employer] has confirmed the use of plasma for this test. This has not been cleared or approved by the U.S. Food and Drug Administration. The FDA has determined that such clearance is not necessary. via680 Phone: Urinalysis with MicroscopicO rdered By: Elfego Johnson on 04-08-2021 - via680 Phone: Amorphous, UA NOT REPORTED None [facility] Work Phone: Bacteria, UA TRACE Abnormal None [facility] Work Phone: Bilirubin Urine SMALL Abnormal NEGATIVE [facility] Work Phone: Casts UA NOT REPORTED /LPF [facility] Work Phone: Color, UA Yellow Yellow [facility] Work Phone: Crystals, UA NOT REPORTED None /HPF [facility] Work Phone: Epithelial Cells UA 10 TO 20 [facility] Work Phone: Glucose, Ur Negative NEGATIVE [facility] Work Phone: Interpretation and review of laboratory results Abnormal [facility] Work Phone: Ketones Ql (U) Negative NEGATIVE [facility] Work Phone: Leukocyte esterase Test strip Ql (U) TRACE Abnormal NEGATIVE [facility] Work Phone: Mucus, UA 3+ Abnormal None [facility] Work Phone: Nitrite, Urine Negative NEGATIVE [facility] Work Phone: Other Observations UA NOT REPORTED NOT REQ. M [facility] [employer] Work Phone: pH, UA 5.5 [facility] Work Phone: Protein, UA Negative NEGATIVE [facility] Work Phone: RBC, UA 0 TO 2 [facility] Work Phone: Renal Epithelial, UA NOT REPORTED 0 /HPF [facility] [employer] Work Phone: Specific [place], UA >1.030 [facility] Work Phone: Trichomonas, UA NOT REPORTED None [facility] Work Phone: Turbidity UA SLIGHTLY CLOUDY Abnormal Clear [facility] Work Phone: Urinalysis Comments NOT REPORTED [employer] Phone: Urine Hgb Negative NEGATIVE via680 Phone: Urobilinogen, Urine Normal Normal via680 Phone: WBC, UA 2 TO 5 via680 Phone: Yeast, UA NOT REPORTED None via680 Phone: via680 Phone: XR ABDOMEN (KUB) (SINGLE AP VIEW)Ordered By: Leonard Reyes on 04-08-2021 No radiographic confirmation of urolithiasis. Nonobstructive bowel gas pattern. via680 Phone: EXAMINATION: ONE SUP INE XRAY VIEW(S) OF THE ABDOMEN 04/08/2021 9:49 am COMPARISON: 12/02/2017, 01/11/2021 HISTORY: ORDERING SYSTEM PROVIDED HISTORY: left cva pain TECHNOLOGIST PROVIDED HISTORY: left cva pain FINDINGS: Nonobstructive bowel gas pattern. No abnormal calcifications. Cholecystectomy clips. No acute bony findings. via680 Phone: Lanre, [facility] Incoming Radiant Results From [facility] - 04/08/2021 1:10 PM EDT EXAMINATION: ONE SUPINE XRAY VIEW(S) OF THE ABDOMEN 04/08/2021 9:49 am COMPARISON: 12/02/2017, 01/11/2021 HISTORY: ORDERING SYSTEM PROVIDED HISTORY: left cva pain TECHNOLOGIST PROVIDED HISTORY: left cva pain FINDINGS: Nonobstructive bowel gas pattern. No abnormal calcifications. Cholecystectomy clips. No acute bony findings. IMPRESSION: No radiographic confirmation of urolithiasis. Nonobstructive bowel gas pattern. via680 Phone: via680 Phone: , UrineOrdered By: Joseph Gallo on 03-25-2021 Beta HCG ( test) Ql (U) Negative NEGATIVE via680 Phone: Comment on above: Specimens with hCG l evels near the threshold of the test (25 mIU/mL) may give a negative or indeterminate result. In such cases, another test should be performed with a new specimen in 48-72 hours. If early is suspected clinically in this setting, correlation with quantitative serum b-hCG level is suggested. [employer] has confirmed the use of plasma for this test. This has not been cleared or approved by the U.S. Food and Drug Administration. The FDA has determined that such clearance is not necessary. via680 Phone: XR LUMBAR SPINE (2-3 VIEWS)O rdered By: Joseph Gallo on 03-25-2021 Unremarkable radiographic views of the lumbar spine. via680 Phone: EXAMINATION: THREE X RAY VIEWS OF THE LUMBAR SPINE 03/25/2021 10:10 pm COMPARISON: Lumbar spine 2-3 views 03/20/2020 HISTORY: ORDERING SYSTEM PROVIDED HISTORY: pain and spasming TECHNOLOGIST PROVIDED HISTORY: pain and spasming FINDINGS: The lumbar spine demonstrates normal lordosis and alignment. Vertebral body heights are normal. No evidence of acute fracture, dislocation or subluxation is identified. Intervertebral joint spaces are preserved. Facet joints are unremarkable. Bone mineralization is within normal limits. Paravertebral soft tissues are unremarkable. via680 Phone: Lanre, [facility] Incoming Radiant Results From [facility] Round/[facility] - 03/25/2021 10:37 PM EDT EXAMINATION: THREE XRAY VIEWS OF THE LUMBAR SPINE 03/25/2021 10:10 pm COMPARISON: Lumbar spine 2-3 views 03/20/2020 HISTORY: ORDERING SYSTEM PROVIDED HISTORY: pain and spasming TECHNOLOGIST PROVIDED HISTORY: pain and spasming FINDINGS: The lumbar spine demonstrates normal lordosis and alignment. Vertebral body heights are normal. No evidence of acute fracture, dislocation or subluxation is identified. Intervertebral joint spaces are preserved. Facet joints are unremarkable. Bone mineralization is within normal limits. Paravertebral soft tissues are unremarkable. IMPRESSION: Unremarkable radiographic views of the lumbar spine. via680 Phone: via680 Phone: .eGFRon 02-28-2021 eGFR Non-AA >60 Normal >=60 [facility] Comment on above: Result Comment: Stag es of Chronic Kidney Disease GFR Stage 3a Mild to moderate loss of kidney function 59 to 45 Stage 3b Moderate to severe loss of kidney function 44 to 33 Stage 4 Severe loss of kidney function 29 to 15 Stage 5 Kidney failure Less than 15 GFR calculated using the CKD-EPI Creatinine Equation (2009): eGFR = 141 X min(SCr/?, 1)? X max(SCr /?, 1)-1.209 X 0.993Age X 1.018 [if female] X 1.159 [if Black] Abbreviations/Units: eGFR (estimated glomerular filtration rate) = mL/min/1.73 m2 SCr (standardized serum creatinine) = mg/dL ? = 0.7 (females) or 0.9 (males) ? = -0.329 (females) or -0.411 (males) min = indicates the minimum of SCr/? or 1 max = indicates the maximum of SCr/? or 1 age = years Performed By: #### E GFR #### [address] [address] eGFR AA >60 Normal >=60 [facility] Comment on above: Result Comment: See comment. Performed By: #### E GFR #### [address] [address] Basic Metabolic Profileon Anion gap [Moles/Vol] 13 mmol/L Normal 7-17 [facility] Comment on above: Performed By: #### C [id number] #### [address] [address] Calcium [Mass/Vol] 9.1 mg/dL Normal 8.5-10.3 [facility] Comment on above: Performed By: #### C [id number] #### [address] [address] Chloride [Moles/Vol] 103 mmol/L Normal 98-110 [facility] Comment on above: Performed By: #### C [id number] #### [address] [place] [address] CO2 [Moles/Vol] 26 mmol/L Normal 22-32 [facility] Comment on above: Performed By: #### C [id number] #### [address] [address] Creatinine [Mass/Vol] 0.69 mg/dL Normal 0.44-1.03 [facility] Comment on above: Performed By: #### C [id number] #### [address] [address] Glucose [Mass/Vol] 91 mg/dL Normal 70-99 [facility] Comment on above: Performed By: #### C [id number] #### [address] [address] Potassium [Moles/Vol] 4.1 mmol/L Normal 3.4-4.8 [facility] Comment on above: Performed By: #### C [id number] #### [address] [address] Sodium [Moles/Vol] 138 mmol/L Normal 133-142 [facility] Comment on above: Performed By: #### C [id number] #### [address] [address] Urea nitrogen [Mass/Vol] 12 mg/dL Normal 8-26 [facility] Comment on above: Performed By: #### C [id number] #### [address] [address] Urea nitrogen/Creatinine [Mass ratio] 17.4 mg/mg Normal 10.0-20.0 [facility] Comment on above: Performed By: #### C [id number] #### [address] [address] CBC w/ Diffon 02-28-2021 Erythrocyte distribution width (RBC) [Ratio] 13.9 % Normal 11.6-14.8 [facility] Comment on above: Performed By: #### C BC #### [address] [address] Hematocrit (Bld) [Volume fraction] 38.2 % Normal 36.0-46.0 [facility] Comment on above: Performed By: #### C BC #### [address] [address] Hemoglobin (Bld) [Mass/Vol] 12.5 g/dL Normal 12.0-16.0 [facility] Comment on above: Performed By: #### C BC #### [address] [address] MCH (RBC) [Entitic mass] 27.4 pg Normal 27.0-35.0 [facility] Comment on above: Performed By: #### C BC #### [address] [address] MCHC 32.8 % Normal 31.0-37.0 [facility] Comment on above: Performed By: #### C BC #### [address] [address] MCV (RBC) [Entitic vol] 83.5 fL Normal 80.0-100.0 [facility] Comment on above: Performed By: #### C BC #### [facility] [address] [place] [address] Platelet 315 x10*3/mcL Normal 150-350 [facility] Comment on above: Performed By: #### C BC #### [address] [address] Platelet mean volume (Bld) [Entitic vol] 8.2 fL Normal 6.7-10.6 [facility] Comment on above: Performed By: #### C BC #### [address] [address] RBC 4.58 x10*6/mcL Normal 3.80-5.20 [facility] Comment on above: Performed By: #### C BC #### [address] [address] WBC 11.4 x10*3/mcL High 4.5-11.0 [facility] Comment on above: Performed By: #### C #### [facility] [address] [place] [address] CT Angio Chest w/ Contraston 02-28-2021 CT Angio Chest w/ Contrast EXAMINATION: CT Angio Chest w/ Contrast HISTORY: Dyspnea COMPARISON: None. TECHNIQUE: CT angiography of the pulmonary arteries following the administration of intravenous contrast. Coronal and sagittal MIP (maximum intensity projection) images were performed. Dose reduction techniques were achieved by using automated exposure control and/or adjustment of mA and/or kV according to patient size and/or use of iterative reconstruction technique. FINDINGS: No filling defects are noted within the pulmonary arteries to suggest the presence of an embolus. The lungs are well inflated and clear. There is no pleural effusion, consolidation or acute infiltrate. There is no evidence an interstitial lung disease. The major airway is patent. There is no axillary, hilar or mediastinal adenopathy. No enhancing mediastinal masses. Normal appearance of the heart without pericardial effusion. No filling defects in the four chambers. Normal appearance of the aorta and great vessels. The thyroid gland is unremarkable. There is no hiatal hernia. The visualized portion of the upper abdomen demonstrates no acute or concerning abnormality. IMPRESSION: No pulmonary embolus. No acute findings. Radiation Dose Estimate: CTDI(mGy):0.141888 / / / kVp:120.168872 / mAs:0.592081 / / / DLP(mGy-cm):3.488629Xnlx Part: Abdomen CTDI(mGy):2.376269 / / / kVp:120.431966 / mAs:40.568746 / / / DLP(mGy-cm):2.466646Qdgp Part: Abdomen CTDI(mGy):7.681381 / / / kVp:120.105275 / mAs:39.723845 / / / DLP(mGy-cm):7.557926Ljvm Part: Abdomen CTDI(mGy):12.596829 / / / kVp:120.649744 / mAs:228.708260 / / / DLP(mGy-cm):348.517573Os dy Part: Abdomen Final Dictated by: Jones Pinzon DO Dictated DT/TM: 02.28.2021 1:31 am Signed by: Jones Pinzon DO Signed (Electronic Signature): 02.28.2021 1:52 am (If Report Is Signed, Electronically Signed in Other Vendor System) Normal [facility] D-Dimeron 02-28-2021 D-Dimer 0.73 mg/L feu High 0.00-0.49 [facility] Comment on above: Result Comment: Resu lts of the D-Dimer test should always be interpreted in conjunction with the patient's medical history, clinical presentation, and other findings. Results <0.5 mg/L are considered NEGATIVE for VTE. Results >= 0.5 mg/L require further clinical evaluation. Levels of triglyceride up to 600 mg/dl do not interfere with this D-Dimer assay. Performed By: #### D LAURE #### [address] [address] Diff Autoon 02-28-2021 Baso Absolute 0.0 x10*3/mcL Normal 0.0-0.2 [facility] Comment on above: Performed By: #### . Automated Diff #### [address] [address] Basophils/100 WBC (Bld) 0.4 % Normal 0.0-1.5 [facility] Comment on above: Performed By: #### . Automated Diff #### [address] [address] Eos Absolute 0.3 x10*3/mcL Normal 0.0-0.4 [facility] Comment on above: Performed By: #### . Automated Diff #### [address] [address] Eosinophils/100 WBC (Bld) 2.4 % Normal 0.0-5.4 [facility] Comment on above: Performed By: #### . Automated Diff #### [address] [address] Lymph Absolute 3.1 x10*3/mcL Normal 1.0-4.8 [facility] Comment on above: Performed By: #### . Automated Diff #### [address] [address] Lymphocytes/100 WBC (Bld) 27.5 % Normal 27.2-40.8 [facility] Comment on above: Performed By: #### . Automated Diff #### [address] [address] [employer] Absolute 0.7 x10*3/mcL Normal 0.1-1.1 [facility] Comment on above: Performed By: #### . Automated Diff #### [address] [address] Monocytes/100 WBC (Bld) 6.4 % Normal 3.7-11.9 [facility] Comment on above: Performed By: #### . Automated Diff #### [address] [address] Neutro Absolute 7.2 x10*3/mcL Normal 1.8-7.7 [facility] Comment on above: Performed By: #### . Automated Diff #### [address] [address] Neutro Auto 63.3 % Normal 47.2-70.8 [facility] Comment on above: Performed By: #### . Automated Diff #### [address] [address] ED Clinical Summaryon 2020 ED Clinical Summary (Inserted Image. Petrona ble to display) [address] [id number] ED Clinical Summary Person Information Name: Oswald Cox Ebonie Rosas/[place]_Ray[place] Age: 25 Years : 1995 Sex: Female PCP: Yohan James CNP Marital Status: Single Phone: Race: White Ethnicity: Not or Language: Ugandan Visit Reason: Chest pain - Pleuritic; Cough Acuity: 3 Enc Type: Emergency Med Service: Emergency Medicine Arrival: 02/27/2021 23:30:53 Discharge: 02/28/2021 02:19:00 LOS: 000 02:49 Checkin: 02/27/2021 23:30:53 Checkout: 02/28/2021 02:19:00 Dispo Type: Home or Self Care Address: [address] [facility] [address] Provider Notes: History of Present Illness The patient is a 25 year old female that presents to the ED with chief complaints of sternal chest pain, shortness of breath, left leg swelling, and hemoptysis. She states she was seen in the ED 1 month ago for left leg swelling and a DVT was ruled out?via?a negative Doppler.?She states her left leg swelling persisted and she was evaluated at the [facility] ED for DVT and shortness of breath. She states DVT was ruled out again with a Doppler. She was diagnosed with pleurisy, a heart murmur and cellulitis of her left leg. She was prescribed oral antibiotics and discharged home. She states she has continued to have the leg swelling and shortness of breath. She began having substernal chest pain that is non-radiating and worse with deep inhalation approximately 7 hours ago. Chest pain is worse with activity. She rates her pain at a 6 out of 10. She denies taking any medication for pain. Approximately 7 hours ago she states she began coughing up blood but she is no longer doing so. She denies any wheezing, fevers, chills, sick contacts, nausea, and vomiting. She denies any personal history of blood clots, sore throat, respiratory conditions,?or cardiac problems. ? ? ? Review of Systems As reviewed in the HPI. All other systems reviewed are negative or normal. Physical Exam CONSTITUTIONAL: [well appearing in no acute distress] SKIN: [Warm, dry, and intact without rash] EYES: [extraocular movements are grossly intact, clear conjunctiva] HENT: [Normocephalic, atraumatic, moist mucus membranes, no erythema,?exudates,?or edema to posterior pharynx, uvula midline] NECK: [no obvious swelling, normal range of motion] PULMONARY: [normal chest rise and fall, no respiratory distress or stridor, lungs clear and equal bilaterally] CARDIOVASCULAR: [1+ edema to left lower extremity. regular rate, distal extremities are warm and well perfused] NEUROLOGIC: [normal speech, moves all extremities] MUSCULOSKELETAL: [sternum tender to palpation, no tenderness to palpation of bilateral lower extremities. no gross deformities, atraumatic] PSYCHIATRIC: [normal mood and affect] ? ? Diagnosis: 1:Chest pain; 2:Dependent edema Problems No Problems Documented Smoking Status: Smoking Status Never (less than 100 in lifetime) Functional Status: Sensory Deficits: History of Falls: Mobility Assistance Prior to Admission: ADLs: Current Level of Assistance for Self-Care/Mobility: Cognitive Status: Allergies No Known Medication Allergies Laboratory or Other Results This Visit (last charted value for your 02/27/2021 visit) Hematology 02/28/2021 0:34 AM WBC: 11.4 x10 RBC: 4.58 x10 Neutro Auto: 63.3 % -- Normal range between ( 47.2 and 70.8 ) Lymph Auto: 27.5 % -- Normal range between ( 27.2 and 40.8 ) Cidra Auto: 6.4 % -- Normal range between ( 3.7 and 11.9 ) Eos Auto: 2.4 % -- Normal range between ( 0.0 and 5.4 ) Basophil Auto: 0.4 % -- Normal range between ( 0.0 and 1.5 ) Baso Absolute: 0.0 x10 MCV: 83.5 fL -- Normal range between ( 80.0 and 100.0 ) MCHC: 32.8 % -- Normal range between ( 31.0 and 37.0 ) Lymph Absolute: 3.1 x10 Hct: 38.2 % -- Normal range between ( 36.0 and 46.0 ) Cidra Absolute: 0.7 x10 MCH: 27.4 pg -- Normal range between ( 27.0 and 35.0 ) Neutro Absolute: 7.2 x10 Hgb: 12.5 g/dL -- Normal range between ( 12.0 and 16.0 ) Mean Platelet Volume: 8.2 fL -- Normal range between ( 6.7 and 10.6 ) Platelet: 315 x10 Eos Absolute: 0.3 x10 RDW: 13.9 % -- Normal range between ( 11.6 and 14.8 ) Coagulation 02/28/2021 0:34 AM PT: 10.2 seconds -- Normal range between ( 9.4 and 12.1 ) INR: 0.9 ratio PTT: 24.8 seconds -- Normal range between ( 20.2 and 27.0 ) D-Dimer: 0.73 mg/L feu -- Normal range between ( 0.00 and 0.49 ) Chemistry 02/28/2021 0:34 AM Creatinine Lvl: 0.69 mg/dL -- Normal range between ( 0.44 and 1.03 ) BUN: 12 mg/dL -- Normal range between ( 8 and 26 ) Glucose Lvl: 91 mg/dL -- Normal range between ( 70 and 99 ) Potassium Lvl: 4.1 mmol/L -- Normal range between ( 3.4 and 4.8 ) Troponin-I: <0.03 ng/mL -- Normal range between ( 0.00 and 0.03 ) Sodium Lvl: 138 mmol/L -- Normal range between ( 133 and 142 ) Calcium Lvl: (more content not included)... Normal [facility] ED Note-Physicianon 02-29-20 ED Note-Physician Chief Complaint Patient came in with chest heaviness, swollen feet and legs. History of Present Illness The patient is a 25 year old female that presents to the ED with chief complaints of sternal chest pain, shortness of breath, left leg swelling, and hemoptysis. She states she was seen in the ED 1 month ago for left leg swelling and a DVT was ruled out via a negative Doppler. She states her left leg swelling persisted and she was evaluated at the [facility] ED for DVT and shortness of breath. She states DVT was ruled out again with a Doppler. She was diagnosed with pleurisy, a heart murmur and cellulitis of her left leg. She was prescribed oral antibiotics and discharged home. She states she has continued to have the leg swelling and shortness of breath. She began having substernal chest pain that is non-radiating and worse with deep inhalation approximately 7 hours ago. Chest pain is worse with activity. She rates her pain at a 6 out of 10. She denies taking any medication for pain. Approximately 7 hours ago she states she began coughing up blood but she is no longer doing so. She denies any wheezing, fevers, chills, sick contacts, nausea, and vomiting. She denies any personal history of blood clots, sore throat, respiratory conditions, or cardiac problems. Review of Systems As reviewed in the HPI. All other systems reviewed are negative or normal. Physical Exam CONSTITUTIONAL: [well appearing in no acute distress] SKIN: [Warm, dry, and intact without rash] EYES: [extraocular movements are grossly intact, clear conjunctiva] HENT: [Normocephalic, atraumatic, moist mucus membranes, no erythema, exudates, or edema to posterior pharynx, uvula midline] NECK: [no obvious swelling, normal range of motion] PULMONARY: [normal chest rise and fall, no respiratory distress or stridor, lungs clear and equal bilaterally] CARDIOVASCULAR: [1+ edema to left lower extremity. regular rate, distal extremities are warm and well perfused] NEUROLOGIC: [normal speech, moves all extremities] MUSCULOSKELETAL: [sternum tender to palpation, no tenderness to palpation of bilateral lower extremities. no gross deformities, atraumatic] PSYCHIATRIC: [normal mood and affect] Vitals & Measurements T: 37 ?C (Oral) HR: 70 (Peripheral) RR: 16 BP: 138/85 SpO2: 100% HT: 177 cm WT: 150 kg (Dosing) Additional Vitals No qualifying data available. Medical Decision Making The patient is a 25 year old female that presents to the ED with chief complaints of sternal chest pain, shortness of breath, left leg swelling, and hemoptysis. Patient otherwise appears to be stable and in no apparent distress. Physical exam was rather benign with mild less than 1+ pitting edema to lower extremities. No clear erythema or warmth noted to bilateral lower legs. No asymmetry noted. We did get basic labs including a D-dimer as listed to the right. Patient has elevated D-dimer. CT of the chest was done and showed no evidence of pulmonary embolism. Patient will be discharged home with diagnosis of hemoptysis/chest pain. Patient should follow-up with PCP. Return to the emergency department for new or worsening symptoms. Chest x-ray, and EKG were also normal. Assessment/Plan 1. Chest pain 2. Dependent edema Orders: ibuprofen, 1 tabs, Oral, q8hr, X 5 days, # 15 tabs, 0 Refill(s), 03/05/21 2:04:00 EDT Discharge Patient Saline Lock Convert From IV Refresh vitals and sections below: Problem List/Past Medical History Ongoing No qualifying data Historical No qualifying data Medications Inpatient No active inpatient medications Home ibuprofen 600 mg oral tablet, 600 mg= 1 tabs, Oral, q8hr Allergies No Known Medication Allergies Social History Tobacco Never (less than 100 in lifetime) Use:. Lab Results Automated Hematology LATEST RESULTS WBC 02/28/21 00:34 11.4 High RBC 02/28/21 00:34 4.58 Hgb 02/28/21 00:34 12.5 Hct 02/28/21 00:34 38.2 MCV 02/28/21 00:34 83.5 MCH 02/28/21 00:34 27.4 MCHC 02/28/21 00:34 32.8 RDW 02/28/21 00:34 13.9 Platelet 02/28/21 00:34 315 Mean Platelet Volume 02/28/21 00:34 8.2 Neutro Auto 02/28/21 00:34 63.3 Lymph Auto 02/28/21 00:34 27.5 Cidra Auto 02/28/21 00:34 6.4 Eos Auto 02/28/21 00:34 2.4 Basophil Auto 02/28/21 00:34 0.4 Neutro Absolute 02/28/21 00:34 7.2 Lymph Absolute 02/28/21 00:34 3.1 Cidra Absolute 02/28/21 00:34 0.7 Eos Absolute 02/28/21 00:34 0.3 Baso Absolute 02/28/21 00:34 0.0 Coagulation LATEST RESULTS PT 02/28/21 00:34 10.2 INR 02/28/21 00:34 0.9 PTT 02/28/21 00:34 24.8 D-Dimer 02/28/21 00:34 0.73 High Routine Chemistry LATEST RESULTS Sodium Lvl 02/28/21 00:34 138 Potassium Lvl 02/28/21 00:34 4.1 Chloride 02/28/21 00:34 103 CO2 02/28/21 00:34 26 Anion Gap 02/28/21 00:34 13 Glucose Lvl 02/28/21 00:34 91 BUN 02/28/21 00:34 12 Creatinine Lvl 02/28/21 00:34 (more content not included)... Normal [facility] Myoglobinon 02-28-2021 Myoglobin 11.7 ng/dL Low 14.3-65.8 [facility] Comment on above: Performed By: #### M YO #### [address] [address] PTon 02-28-2021 INR Coag (PPP) [Relative time] 0.9 {INR} Normal <=3.5 [facility] Comment on above: Result Comment: INR has no normal range. INR Therapeutic range is: 2.0-3.0 (AF, CVA, TIAs, DVT prophylaxis, acute DVT) 2.5-3.5 ([facility] heart valves, recurrent thrombosis/emboli) Performed By: #### P TINR #### [address] [address] PT Coag (PPP) [Time] 10.2 s Normal 9.4-12.1 [facility] Comment on above: Performed By: #### P TINR #### [address] [address] PTTon 02-28-2021 aPTT Coag (Bld) [Time] 24.8 s Normal 20.2-27.0 [facility] Comment on above: Performed By: #### P TT #### [address] [address] Troponin-Ion 02-28-2021 Troponin I.cardiac [Mass/Vol] ng/mL Normal 0.00-0.03 [facility] Comment on above: Result Comment: An i ncreased Troponin-I value, in the absence of myocardial ischemia, may indicate other etiologies of cardiac damage. Performed By: #### M YO #### [address] [address] XR Chest 1 Viewon 02-28-2021 XR Chest 1 View EXAM: XR Chest EXAM: XR Chest 1 View 02/28/2021 12:53 AM EDT [facility] CLINICAL STATEMENT: Chest pain COMPARISON: No prior studies are available at the time of dictation. TECHNIQUE: Single AP radiograph of the chest is submitted. FINDINGS: There is no acute airspace disease. The cardiac silhouette is normal. The costophrenic recesses are sharp. No pneumothorax. The bony elements are unremarkable. IMPRESSION: No acute cardiopulmonary process. FOLLOW-UP: Follow-up as clinically indicated. Final Dictated by: Patnera Madison MD Dictated DT/TM: 02/28/2021 1:09 am Signed by: Pantera Madison MD Signed (Electronic Signature): 02/28/2021 1:09 am (If Report Is Signed, Electronically Signed in Other Vendor System) Normal [facility] , UrineOrdered By: Leonard Randall on 01-23-2021 Beta HCG ( test) Ql (U) Negative NEGATIVE via680 Phone: Comment on above: Specimens with hCG l evels near the threshold of the test (25 mIU/mL) may give a negative or indeterminate result. In such cases, another test should be performed with a new specimen in 48-72 hours. If early is suspected clinically in this setting, correlation with quantitative serum b-hCG level is suggested. [employer] has confirmed the use of plasma for this test. This has not been cleared or approved by the U.S. Food and Drug Administration. The FDA has determined that such clearance is not necessary. 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 Procedure Type of Study: Veins: Lower Extremities DVT Study, Venous Scan Lower Bilateral. Indications for Study:Edema. Patient Status:Out Patient. Technical Quality:Adequate visualization. Conclusions Summary No evidence of superficial or deep venous thrombosis in both lower extremities. Signature Findings: Right Impression: Left Impression: Common femoral, femoral, deep Common femoral, femoral, deep femoral, popliteal, tibials, femoral, popliteal, tibials, peroneal, and saphenous veins were peroneal, and saphenous veins were evaluated. evaluated. All veins were compressible and with All veins were compressible and with normal doppler responses. normal doppler responses. Velocities are measured in cm/s ; Diameters are measured in cm Right Lower Extremities DVT Study Measurements Right 2D Measurements + + + +------- --- + !Location !Visualized!Compressibil ity!Thrombosis! + + + +------- --- + !Common Femoral !Yes !Yes !None ! + + + +------- --- + !Prox Femoral !Yes !Yes !None ! + + + +------- --- + !Mid Femoral !Yes !Yes !None ! + + + +------- --- + !Dist Femoral !Yes !Yes !None ! + + + +------- --- + !Deep Femoral !Yes !Yes !None ! + + + +------- --- + !Popliteal !Yes !Yes !None ! + + + +------- --- + !Sapheno Femoral Junction !Yes !Yes !None ! + + + +------- --- + !PTV !Yes !Yes !None ! + + + +------- --- + !Peroneal !Yes !Yes !None ! + + + +------- --- + !Gastroc !Yes !Yes !None ! + + + +------- --- + !GSV Thigh !Yes !Yes !None ! + + + +------- --- + !GSV Knee !Yes !Yes !None ! + + + +------- --- + !GSV Ankle !Yes !Yes !None ! + + + +------- --- + !SSV !Yes !Yes !None ! + + + +------- --- + Right Doppler Measurements + ----+------+------+----- --- + !Location !Signal!Reflux!Reflux (msec) ! + ----+------+------+----- --- + !Common Femoral !Phasic!No ! ! + ----+------+------+----- --- + !Prox Femoral !Phasic!No ! ! + ----+------+------+----- --- + !Popliteal !Phasic!No ! ! + ----+------+------+----- --- + Left Lower Extremities DVT Study Measurements Left 2D Measurements + + + +------- --- + !Location !Visualized!Compressibil ity!Thrombosis! + + + +------- --- + !Common Femoral !Yes !Yes !None ! + + + +------- --- + !Prox Femoral !Yes !Yes !None ! + + + +------- --- + !Mid Femoral !Yes !Yes !None ! + + + +------- -- (more content not included)... via680 Phone: via680 Phone: COVID-19Ordered By: Melvin barnes on 01-20-2021 SARS-CoV-2 (COVID-19) RNA ANALY+probe Ql (Unsp spec) via680 Phone: SARS-CoV-2 (COVID-19) RNA ANALY+probe Ql (Unsp spec) Not detected Not Detected via680 Phone: Comment on above: The specimen is NEGATIVE for SARS-CoV-2, the novel coronavirus associated with COVID-19. A negative result does not rule out COVID-19. Nilam SARS-CoV-2 for use on the [employer] is a real-time RT-PCR test intended for the qualitative detection of nucleic acids from SARS-CoV-2 in clinician-collected nasal, nasopharyngeal, and oropharyngeal swab specimens from individuals who meet COVID-19 clinical and/or epidemiological criteria. Nilam SARS-CoV-2 is for use only under Emergency Use Authorization (EUA) in laboratories certified under Clinical Laboratory Improvement Amendments of 1988 (CLIA), 42 U.S.C. 263a, that meet requirements to perform high or moderate complexity tests. An individual without symptoms of COVID-19 and who is not shedding SARS-CoV-2 virus would expect to have a negative (not detected) result in this assay. Fact sheet for Healthcare Providers: https://www.fda.gov/media/949261/download Fact sheet for Patients: https://www.fda.gov/media/633326/download METHODOLOGY: RT-PCR Source .NASOPHARYNGEAL SWAB [employer] Phone: via680 Phone: CT ABDOMEN PELVIS W IV CONTR AST Additional Contrast? NoneOrdered By: Shayan Reyes on 01-11-2021 1. No acute findings within the abdomen or pelvis 2. Normal appendix 3. Scattered colonic diverticula, without evidence of diverticulitis 4. Prior cholecystectomy via680 Phone: EXAMINATION: CT OF T HE ABDOMEN AND PELVIS WITH CONTRAST 01/10/2021 6:42 pm TECHNIQUE: CT of the abdomen and pelvis was performed with the administration of intravenous contrast. Multiplanar reformatted images are provided for review. Dose modulation, iterative reconstruction, and/or weight based adjustment of the mA/kV was utilized to reduce the radiation dose to as low as reasonably achievable. COMPARISON: August 29, 2020 HISTORY: ORDERING SYSTEM PROVIDED HISTORY: RLQ abd pain and tenderness at mcburneys. Nausea vomiting and decreased appetite. TECHNOLOGIST PROVIDED HISTORY: RLQ abd pain and tenderness at mcburneys. Nausea vomiting and decreased appetite. Decision Support Exception - unselect if not a suspected or confirmed emergency medical condition->Emergency Medical Condition (MA) FINDINGS: Lower Chest: The lung bases are clear. Organs: The liver, spleen, pancreas, adrenal glands, and kidneys demonstrate no acute abnormality. The gallbladder surgically absent. GI/Bowel: Stomach appears normal. Small bowel is normal without evidence of obstruction. The appendix is normal. Scattered colonic diverticula are present, without evidence of diverticulitis. Pelvis: Urinary bladder is nondistended. Uterus appears normal. Follicles are present on the ovaries bilaterally. Peritoneum/Retroperitone um: No free fluid or free air is present within the abdomen or pelvis. No aneurysm formation is noted. No pathological adenopathy is present. Bones/Soft Tissues: No acute osseous abnormality is present. Small left inguinal hernia is present containing fat. An L1 limbus vertebrae is again demonstrated. via680 Phone: Lanre, pn Incoming Radiant Results From [facility] - 01/11/2021 1:28 AM EDT EXAMINATION: CT OF THE ABDOMEN AND PELVIS WITH CONTRAST 01/10/2021 6:42 pm TECHNIQUE: CT of the abdomen and pelvis was performed with the administration of intravenous contrast. Multiplanar reformatted images are provided for review. Dose modulation, iterative reconstruction, and/or weight based adjustment of the mA/kV was utilized to reduce the radiation dose to as low as reasonably achievable. COMPARISON: August 29, 2020 HISTORY: ORDERING SYSTEM PROVIDED HISTORY: RLQ abd pain and tenderness at mcburneys. Nausea vomiting and decreased appetite. TECHNOLOGIST PROVIDED HISTORY: RLQ abd pain and tenderness at mcburneys. Nausea vomiting and decreased appetite. Decision Support Exception - unselect if not a suspected or confirmed emergency medical condition->Emergency Medical Condition (MA) FINDINGS: Lower Chest: The lung bases are clear. Organs: The liver, spleen, pancreas, adrenal glands, and kidneys demonstrate no acute abnormality. The gallbladder surgically absent. GI/Bowel: Stomach appears normal. Small bowel is normal without evidence of obstruction. The appendix is normal. Scattered colonic diverticula are present, without evidence of diverticulitis. Pelvis: Urinary bladder is nondistended. Uterus appears normal. Follicles are present on the ovaries bilaterally. Peritoneum/Retroperitone um: No free fluid or free air is present within the abdomen or pelvis. No aneurysm formation is noted. No pathological adenopathy is present. Bones/Soft Tissues: No acute osseous abnormality is present. Small left inguinal hernia is present containing fat. An L1 limbus vertebrae is again demonstrated. IMPRESSION: 1. No acute findings within the abdomen or pelvis 2. Normal appendix 3. Scattered colonic diverticula, without evidence of diverticulitis 4. Prior cholecystectomy via680 Phone: via680 Phone: Comprehensive Metabolic Pane l w/ Reflex to MGOrdered By: Shayan Reyes on 01-11-2021 Albumin [Mass/Vol] 4 g/dL 3.5 - 5.2 g/dL via680 Phone: Albumin/Globulin [Mass ratio] 1.3 {ratio} via680 Phone: ALP (Bld) [Catalytic activity/Vol] 66 U/L 35 - 104 U/L via680 Phone: ALT [Catalytic activity/Vol] 30 U/L 5 - 33 U/L via680 Phone: Anion gap [Moles/Vol] 10 mmol/L 9 - 17 mmol/L via680 Phone: AST [Catalytic activity/Vol] 22 U/L <32 via680 Phone: Bilirubin [Mass/Vol] 0.40 mg/dL 0.3 - 1 .2 mg/dL via680 Phone: Calcium [Mass/Vol] 9.3 mg/dL 8.6 - 10. 4 mg/dL via680 Phone: Chloride [Moles/Vol] 103 mmol/L 98 - 10 7 mmol/L via680 Phone: CO2 [Moles/Vol] 26 mmol/L 20 - 31 mmol/L via680 Phone: Creatinine [Mass/Vol] 0.6 mg/dL 0.50 - 0.90 mg/dL via680 Phone: Free PSA/Total PSA [Mass fraction] 7.2 g/dL 6.4 - 8.3 g/dL via680 Phone: GFR >60 >60 mL/min [employer] Phone: GFR Non- >60 >60 mL/min via680 Phone: Glucose [Mass/Vol] 86 mg/dL 70 - 99 mg/dL via680 Phone: Interpretation and review of laboratory results Abnormal via680 Phone: Potassium [Moles/Vol] 3.5 mmol/L Low 3.7 - 5.3 mmol/L via680 Phone: Sodium [Moles/Vol] 139 mmol/L 135 - 144 mmol/L via680 Phone: Urea nitrogen (BldV) [Mass/Vol] 12 mg/dL 6 - 20 mg/dL via680 Phone: Urea nitrogen/Creatinine (Bld) [Mass ratio] 20 via680 Phone: via680 Phone: HCG Qualitative, SerumOrdere d By: Shayan Reyes on 01-11-2021 hCG Qual Negative NEGATIVE via680 Phone: Comment on above: Specimens with hCG l evels near the threshold of the test (25 mIU/mL) may give a negative or indeterminate result. In such cases, another test should be performed with a new specimen in 48-72 hours. If early is suspected clinically in this setting, correlation with quantitative serum b-hCG level is suggested. [employer] has confirmed the use of plasma for this test. This has not been cleared or approved by the U.S. Food and Drug Administration. The FDA has determined that such clearance is not necessary. via680 Phone: Laboratory - Chemistry and C hemistry - challengeOrdered By: Shayan Reyes on 01-11-2021 GFR/1.73 sq M.predicted MDRD (S/P/Bld) [Vol rate/Area] via680 Phone: Comment on above: Average GFR for 20-2 9 years old: 116 mL/min/1.73sq m Chronic Kidney Disease: <60 mL/min/1.73sq m Kidney failure: <15 mL/min/1.73sq m eGFR calculated using average adult body mass. Additional eGFR calculator available at: http://www.[employer].Bluesocket/multiple_crcl_2012.htm Stage 1: Some kidney damage normal GFR Stage 2: Mild kidney damage GFR 60-89 Stage 3: Moderate kidney damage GFR 30-59 Stage 4: Severe kidney damage GFR 15-29 Stage 5: Severe kidney damage GFR <15 ESRD - chronic treatment by dialysis or transplant Lactic AcidOrdered By: Shayan Pollo on 01-11-2021 Lactate [Moles/Vol] 0.8 mmol/L 0.5 - 2. 2 mmol/L [facility] Work Phone: [facility] Work Phone: LipaseOrdered By: Shayan de jesus on 01-11-2021 Lipase [Catalytic activity/Vol] 24 U/L 13 - 60 U/L [facility] Work Phone: [facility] Work Phone: MagnesiumOrdered By: Shayan guzman on 01-11-2021 Magnesium [Mass/Vol] 2.1 mg/dL 1.6 - 2 .6 mg/dL [facility] Work Phone: [facility] Work Phone: Urinalysis, reflex to micros copicOrdered By: Shayan Reyes on 01-11-2021 Bilirubin Urine Negative NE[facility]IVE [facility] Work Phone: Color, UA YELLOW YELLOW [facility] Work Phone: Glucose, Ur Negative NEGATIVE [facility] Work Phone: Interpretation and review of laboratory results Abnormal [facility] [employer] Work Phone: Ketones Ql (U) Negative NEGATIVE [facility] Work Phone: Leukocyte esterase Test strip Ql (U) Negative NEGATIVE [facility] Work Phone: Nitrite, Urine Negative NEGATIVE [facility] Work Phone: pH, UA 6.0 [facility] Work Phone: Protein, UA Negative NEGATIVE [facility] Work Phone: Specific [place], UA 1.025 [facility] Work Phone: Turbidity UA CLEAR CLEAR [facility] Work Phone: Urinalysis Comments NOT REPORTED [facility] Work Phone: Urine Hgb Negative NEGATIVE [facility] Work Phone: Urobilinogen, Urine Normal Normal [facility] Work Phone: [email or web address] Work Phone: CBC Auto DifferentialOrdered By: Shayan Reyes on 01-10-2021 Absolute Eos # 0.31 [employer] [facility] Work Phone: Absolute Immature Granulocyte 0.04 [email or web address] Work Phone: Absolute Lymph # 3.16 [employer] [facility] Work Phone: Absolute [place] # 0.82 [employer] [facility] Work Phone: Basophils (Bld) [#/Vol] 10*3/uL [email or web address] Work Phone: Basophils/100 WBC (Bld) 0 % 0 - 2 % [email or web address] Work Phone: Differential Type NOT REPORTED via680 Phone: Eosinophils/100 WBC (Bld) 3 % 1 - 4 % [email or web address] Work Phone: Hematocrit (Bld) [Volume fraction] 38.0 % 36.3 - 47.1 % [email or web address] Work Phone: Hemoglobin.gastrointe stinal spec 1 Ql (Stl) 12.1 g/dL 11.9 - 15.1 g/dL via680 Phone: Immature granulocytes/100 WBC (Bld) 0 % 0 [email or web address] Work Phone: Interpretation and review of laboratory results Abnormal [email or web address] Work Phone: Lymphocytes/100 WBC (Bld) 26 % 24 - 43 % [email or web address] Work Phone: MCH (RBC) [Entitic mass] 27.1 pg 25.2 - 33.5 pg [email or web address] Work Phone: MCHC (RBC) [Mass/Vol] 31.8 g/dL 28.4 - 34.8 g/dL via680 Phone: MCV (RBC) [Entitic vol] 85.0 fL 82.6 - 102.9 fL [email or web address] Work Phone: Monocytes/100 WBC (Bld) 7 % 3 - 12 % [email or web address] Work Phone: NRBC Automated 0.0 0.0 per 100 WBC via680 Phone: Platelet distribution width (Bld) [Ratio] 12.6 % 11.8 - 14.4 % via680 Phone: Platelet Estimate NOT REPORTED [email or web address] Work Phone: Platelet mean volume (Bld) [Entitic vol] 9.7 fL 8.1 - 13.5 fL via680 Phone: Platelets (Bld) [#/Vol] 309 10*3/uL via680 Phone: RBC (Bld) [#/Vol] 4.47 10*6/uL 3.95 - 5.1 1 m/uL [email or web address] Work Phone: RBC (Bld) [#/Vol] NOT REPORTED via680 Phone: Segmented neutrophils/100 WBC (Bld) 64 % 36 - 65 % via680 Phone: Segs Absolute 7.64 [employer] Work Phone: WBC (Bld) [#/Vol] 12.0 10*3/uL High [email or web address] Work Phone: WBC (Bld) [#/Vol] NOT REPORTED via680 Phone: [email or web address] Work Phone: Basic Metabolic PanelOrdered By: Leonard Randall on 01-09-2021 Anion gap [Moles/Vol] 8 mmol/L Low 9 - 17 mmol/L via680 Phone: Calcium [Mass/Vol] 9.2 mg/dL 8.6 - 10. 4 mg/dL [email or web address] Work Phone: Chloride [Moles/Vol] 105 mmol/L 98 - 10 7 mmol/L via680 Phone: CO2 [Moles/Vol] 25 mmol/L 20 - 31 mmol/L [facility] Work [facility]: Creatinine [Mass/Vol] 0.63 mg/dL 0.50 - 0.90 mg/dL [email or web address] Work Phone: GFR >60 >60 mL/min [employer] Work Phone: GFR Non- >60 >60 mL/min [email or web address] Phone: Glucose [Mass/Vol] 84 mg/dL 70 - 99 mg/dL [email or web address] Phone: Interpretation and review of laboratory results Abnormal via680 Phone: Potassium [Moles/Vol] 4.0 mmol/L 3.7 - 5.3 mmol/L [facility] Work Phone: Sodium [Moles/Vol] 138 mmol/L 135 - 144 mmol/L [email or web address] Phone: Urea nitrogen (BldV) [Mass/Vol] 12 mg/dL 6 - 20 mg/dL [facility] Work Phone: Urea nitrogen/Creatinine (Bld) [Mass ratio] 19 [email or web address] Work Phone: [email or web address] Work Phone: CBC Auto DifferentialOrdered By: Leonard Randall on 01-09-2021 Absolute Eos # 0.28 [employer] [facility] Work Phone: Absolute Immature Granulocyte 0.05 [facility] Work Phone: Absolute Lymph # 2.65 [employer] [facility] Work Phone: Absolute [place] # 0.80 [facility] Work Phone: Basophils (Bld) [#/Vol] 10*3/uL via680 Phone: Basophils/100 WBC (Bld) 0 % 0 - 2 % via680 Phone: Differential Type NOT REPORTED via680 Phone: Eosinophils/100 WBC (Bld) 2 % 1 - 4 % via680 Phone: Hematocrit (Bld) [Volume fraction] 37.9 % 36.3 - 47.1 % via680 Phone: Hemoglobin.gastrointe stinal spec 1 Ql (Stl) 12.0 g/dL 11.9 - 15.1 g/dL via680 Phone: Immature granulocytes/100 WBC (Bld) 0 % 0 via680 Phone: Interpretation and review of laboratory results Abnormal via680 Phone: Lymphocytes/100 WBC (Bld) 21 % Low 24 - 43 % via680 Phone: MCH (RBC) [Entitic mass] 27.0 pg 25.2 - 33.5 pg via680 Phone: MCHC (RBC) [Mass/Vol] 31.7 g/dL 28.4 - 34.8 g/dL via680 Phone: MCV (RBC) [Entitic vol] 85.4 fL 82.6 - 102.9 fL [employer]680 Phone: Monocytes/100 WBC (Bld) 6 % 3 - 12 % [employer]680 Phone: NRBC Automated 0.0 0.0 per 100 WBC via680 Phone: Platelet distribution width (Bld) [Ratio] 12.7 % 11.8 - 14.4 % [employer]680 Phone: Platelet Estimate NOT REPORTED via680 Phone: Platelet mean volume (Bld) [Entitic vol] 10.1 fL 8.1 - 13.5 fL via680 Phone: Platelets (Bld) [#/Vol] 340 10*3/uL via680 Phone: RBC (Bld) [#/Vol] 4.44 10*6/uL 3.95 - 5.1 1 m/uL via680 Phone: RBC (Bld) [#/Vol] NOT REPORTED via680 Phone: Segmented neutrophils/100 WBC (Bld) 71 % High 36 - 65 % via680 Phone: Segs Absolute 8.79 [facility] [employer] Work Phone: WBC (Bld) [#/Vol] 12.6 10*3/uL High via680 Phone: WBC (Bld) [#/Vol] NOT REPORTED via680 Phone: via680 Phone: Laboratory - Chemistry and C hemistry - challengeOrdered By: Leonard Randall on 01-09-2021 GFR/1.73 sq M.predicted MDRD (S/P/Bld) [Vol rate/Area] via680 Phone: Comment on above: Average GFR for 20-2 9 years old: 116 mL/min/1.73sq m Chronic Kidney Disease: <60 mL/min/1.73sq m Kidney failure: <15 mL/min/1.73sq m eGFR calculated using average adult body mass. Additional eGFR calculator available at: http://www.[employer].[place]/multiple_crcl_2012.htm Stage 1: Some kidney damage normal GFR Stage 2: Mild kidney damage GFR 60-89 Stage 3: Moderate kidney damage GFR 30-59 Stage 4: Severe kidney damage GFR 15-29 Stage 5: Severe kidney damage GFR <15 ESRD - chronic treatment by dialysis or transplant No Panel InformationOrdered By: Willie Tello on 10-18-2020 Unremarkable pelvic ultrasound. via680 Phone: EXAMINATION: PELVIC ULTRASOUND; ULTRASOUND OF THE SCROTUM/TESTICLES WITH COLOR DOPPLER FLOW EVALUATION 10/18/2020 TECHNIQUE: Transabdominal and transvaginal pelvic ultrasound was performed with color doppler flow evaluation. COMPARISON: 08/29/2019 HISTORY: ORDERING SYSTEM PROVIDED HISTORY: RLQ abdominal pain FINDINGS: Measurements: Uterus: 8.1 x 3.3 x 4.3 cm Endometrial stripe: 8.8 mm Right Ovary: 4.1 x 3.7 x 2.3 cm Left Ovary: 3.8 x 2.2 x 4.4 cm Ultrasound Findings: Uterus: Uterus demonstrates normal myometrial echotexture. Endometrial stripe: Endometrial stripe is within normal limits. Right Ovary: Right ovary is within normal limits. Simple appearing 2.4 x 1.9 x 1.7 cm cyst requiring. No further follow-up is noted. There is normal color flow and Doppler interrogation Left Ovary: Left ovary is within normal limits. There is normal color flow and Doppler interrogation Free Fluid: No evidence of free fluid. via680 Phone: Lanre, pn Incoming Radiant Results From Primo Round/Postini - 10/18/2020 5:53 PM EDT EXAMINATION: PELVIC ULTRASOUND; ULTRASOUND OF THE SCROTUM/TESTICLES WITH COLOR DOPPLER FLOW EVALUATION 10/18/2020 TECHNIQUE: Transabdominal and transvaginal pelvic ultrasound was performed with color doppler flow evaluation. COMPARISON: 08/29/2019 HISTORY: ORDERING SYSTEM PROVIDED HISTORY: RLQ abdominal pain FINDINGS: Measurements: Uterus: 8.1 x 3.3 x 4.3 cm Endometrial stripe: 8.8 mm Right Ovary: 4.1 x 3.7 x 2.3 cm Left Ovary: 3.8 x 2.2 x 4.4 cm Ultrasound Findings: Uterus: Uterus demonstrates normal myometrial echotexture. Endometrial stripe: Endometrial stripe is within normal limits. Right Ovary: Right ovary is within normal limits. Simple appearing 2.4 x 1.9 x 1.7 cm cyst requiring. No further follow-up is noted. There is normal color flow and Doppler interrogation Left Ovary: Left ovary is within normal limits. There is normal color flow and Doppler interrogation Free Fluid: No evidence of free fluid. IMPRESSION: Unremarkable pelvic ultrasound. [facility] Work Phone: Laboratory - Chemistry and C hemistry - challengeOrdered By: Yohan James on 09-26-2020 Albumin [Mass/Vol] 3.8 g/dL (3.5-5.2 ) [facility] Work Phone: Comment on above: Note: Responsible Ob gravity prospecting observer helper: CET ONE AUTOFILE (3005) ALT [Catalytic activity/Vol] 20 U/L (5-33 ) [facility] Work Phone: Comment on above: Note: Responsible Ob gravity prospecting observer helper: [employer]ET [employer] AUTOFILE (3005) Anion gap [Moles/Vol] 8 mmol/L Low (9-17 ) [facility] Work Phone: Comment on above: Note: Responsible Ob gravity prospecting observer helper: CET ONE AUTOFILE (3005) AST [Catalytic activity/Vol] 18 U/L (<32 ) [facility] Work Phone: Comment on above: Note: Responsible Ob gravity prospecting observer helper: CET ONE AUTOFILE (3005) Bilirubin [Mass/Vol] 0.61 mg/dL (0.3-1.2 ) [facility] Work Phone: Comment on above: Note: Responsible Ob gravity prospecting observer helper: CET ONE AUTOFILE (3005) Calcium [Mass/Vol] 8.8 mg/dL (8.6-10.4 ) [facility] Work Phone: Comment on above: Note: Responsible Ob gravity prospecting observer helper: CET ONE AUTOFILE (3005) Chloride [Moles/Vol] 100 mmol/L (98-107 ) [facility] Work Phone: Comment on above: Note: Responsible Ob gravity prospecting observer helper: CET ONE AUTOFILE (3005) Cholesterol [Mass/Vol] 174 mg/dL (<200 ) [facility] Work Phone: Comment on above: Note: Cholesterol Gu idelines:<200 [id number] Borderline>240 UndesirableResponsible Observer: CCEV AUTOFILE (3002) Cholesterol.total/Cho lesterol in HDL [Mass ratio] 3.8 {ratio} (<5 ) [facility] Work Phone: Comment on above: Note: Responsible Ob gravity prospecting observer helper: CCEV AUTOFILE (3002) CO2 [Moles/Vol] 26 mmol/L (20-31 ) [facility] Work Phone: Comment on above: Note: Responsible Ob gravity prospecting observer helper: CET ONE AUTOFILE (3005) Creatinine [Mass/Vol] 0.59 mg/dL (0.50- 0.90 ) [facility] Work Phone: Comment on above: Note: Responsible Ob gravity prospecting observer helper: CET ONE AUTOFILE (3005) Glucose [Mass/Vol] 82 mg/dL (70-99 ) [facility] Work Phone: Comment on above: Note: Responsible Ob gravity prospecting observer helper: CET ONE AUTOFILE (3005) Magnesium [Mass/Vol] 46 mg/dL (>40 ) [facility] Work Phone: Comment on above: Note: HDL Guidelines :<40 [id number] Borderline>59 DesirableResponsible Observer: CCEV AUTOFILE (3002) Magnesium [Mass/Vol] 109 mg/dL (0-130 ) [facility] Work Phone: Comment on above: Note: LDL Guidelines :<100 [id number] Near to/above [id number] Borderline>159 UndesirableDirect (measured) LDL and calculated LDL are not interchangeable tests.Responsible Observer: CCEV AUTOFILE (3002) Potassium [Moles/Vol] 3.7 mmol/L (3.7-5.3 ) [facility] Work Phone: Comment on above: Note: Responsible Ob gravity prospecting observer helper: CET ONE AUTOFILE (3005) Protein [Mass/Vol] 6.8 g/dL (6.4-8.3 ) [facility] Work Phone: Comment on above: Note: Responsible Ob gravity prospecting observer helper: CET ONE AUTOFILE (3005) Sodium [Moles/Vol] 134 mmol/L Low (135-144 ) [facility] Work Phone: Comment on above: Note: Responsible Ob gravity prospecting observer helper: CET ONE AUTOFILE (3005) Triglyceride [Mass/Vol] 93 mg/dL (<150 ) [facility] Work Phone: Comment on above: Note: Triglyceride G uidelines:<150 [id number] [id number] High>499 Very highBased on AHA Guidelines for fasting triglyceride, April 2012.Responsible Observer: CCEV AUTOFILE (3002) Urea nitrogen [Mass/Vol] 10 mg/dL (6-20 ) [facility] Work Phone: Comment on above: Note: Responsible Ob gravity prospecting observer helper: CET ONE AUTOFILE (3005) No Panel InformationOrdered By: Yohan James on 09-26-2020 (cont.) See Note [facility] Work Phone: Comment on above: Note: Average GFR fo r 20-29 years old:116 mL/min/1.73sq mChronic Kidney Disease:<60 mL/min/1.73sq mKidney failure:<15 mL/min/1.73sq meGFR calculated using average adult body mass. Additional eGFR calculatoravailable at:http://www.[employer].[place]/multiple_crcl_2012.htmResponsible Observer: CET ONE AUTOFILE (3005) Albumin/Glob Ratio 1.3 (1.0-2.5 ) [facility] Work Phone: Comment on above: Note: Responsible Ob gravity prospecting observer helper: CET ONE AUTOFILE (3005) Alkaline Phos 65 U/L (35-104 ) [facility] Work Phone: Comment on above: Note: Responsible Ob gravity prospecting observer helper: CET ONE AUTOFILE (3005) BUN/CRE Ratio 17 (9-20 ) [facility] Work Phone: Comment on above: Note: Responsible Ob gravity prospecting observer helper: CET ONE AUTOFILE (3005) Cholesterol,VLDL NOT REPORTED mg/dL (1-30 ) [facility] Work Phone: GFR, Amer >60 mL/min (>60 ) [facility] Work Phone: Comment on above: Note: Responsible Ob gravity prospecting observer helper: CET ONE AUTOFILE (3005) GFR,non Amer >60 mL/min (>60 ) [facility] Work Phone: Comment on above: Note: Responsible Ob gravity prospecting observer helper: CET ONE AUTOFILE (3005) Reported Physicians See Note [facility] Work Phone: Comment on above: Note: Reported Physi cians:Ordering: Yohan JamesAttending: Marcia JamesieReferring: Yohan James Staging: See Note [facility] Work Phone: Comment on above: Note: Stage 1: Some kidney damage normal GFRStage 2: Mild kidney damage GFR 60-89Stage 3: Moderate kidney damage GFR 30-59Stage 4: Severe kidney damage GFR 15-29Stage 5: Severe kidney damage GFR <15ESRD - chronic treatment by dialysis or transplantResponsible Observer: CET ONE AUTOFILE (3005) Thyroid Stim. Horm. 1.17 mIU/L (0.30-5. 00 ) [facility] Work Phone: Comment on above: Note: Responsible Ob gravity prospecting observer helper: CET ONE AUTOFILE (3005) Otheron 09-12-2020 MRI brain: No acute intracranial abnormality. MRI cervical spine: No acute abnormality in the cervical spine. Congenitally narrow cervical spinal canal, with minimal spinal canal narrowing at C2-3. No foraminal narrowing. [email or web address] Work Phone: EXAMINATION: MRI OF THE BRAIN WITHOUT CONTRAST; MRI OF THE CERVICAL SPINE WITHOUT AND WITH CONTRAST 09/12/2020 2:17 pm; 09/12/2020 2:22 pm TECHNIQUE: Multiplanar multisequence MRI of the brain was performed without the administration of intravenous contrast.; Multiplanar multisequence MRI of the cervical spine was performed without and with the administration of intravenous contrast. COMPARISON: None. HISTORY: ORDERING SYSTEM PROVIDED HISTORY: Paresthesia of both hands TECHNOLOGIST PROVIDED HISTORY: paresthesia in the upper limbs and left lower limb Is the patient ?->No; ORDERING SYSTEM PROVIDED HISTORY: Paresthesia of both hands TECHNOLOGIST PROVIDED HISTORY: paresthesia both arms and left lower limb Is the patient ?->No FINDINGS: MRI brain: INTRACRANIAL STRUCTURES/VENTRICLES: There is no acute infarct. No mass effect or midline shift. No evidence of an acute intracranial hemorrhage. The ventricles and sulci are normal in size and configuration. The sellar/suprasellar regions appear unremarkable. The normal signal voids within the major intracranial vessels appear maintained. ORBITS: The visualized portion of the orbits demonstrate no acute abnormality. SINUSES: There is scattered mild mucosal thickening in the paranasal sinuses. The bilateral mastoid air cells are clear. BONES/SOFT TISSUES: The bone marrow signal intensity appears normal. The soft tissues demonstrate no acute abnormality. MRI cervical spine: BONES/ALIGNMENT: There is straightening and mild reversal of normal cervical lordosis. There is normal alignment of the cervical spine. The vertebral body heights are maintained. The bone marrow signal appears unremarkable. No fracture or destructive osseous lesion. The intervertebral disc heights are grossly maintained. There is congenitally narrow cervical spinal canal. SPINAL CORD: No abnormal signal in the cervical spinal cord. SOFT TISSUES: No paraspinal mass identified. C2-3: There is no spinal canal narrowing no foraminal narrowing. There is minimal spinal canal narrowing. C3-4: There is no significant disc herniation, spinal canal stenosis or neural foraminal narrowing. C4-5: There is no significant disc herniation, spinal canal stenosis or neural foraminal narrowing. C5-6: There is no significant disc herniation, spinal canal stenosis or neural foraminal narrowing. C6-7: There is no significant disc herniation, spinal canal stenosis or neural foraminal narrowing. C7-T1: There is no significant disc herniation, spinal canal stenosis or neural foraminal narrowing. [email or web address] Work Phone: Lanre, Mhpn Incoming Radiant Results From Primo Round/Postini - 09/12/2020 3:55 PM EST EXAMINATION: MRI OF THE BRAIN WITHOUT CONTRAST; MRI OF THE CERVICAL SPINE WITHOUT AND WITH CONTRAST 09/12/2020 2:17 pm; 09/12/2020 2:22 pm TECHNIQUE: Multiplanar multisequence MRI of the brain was performed without the administration of intravenous contrast.; Multiplanar multisequence MRI of the cervical spine was performed without and with the administration of intravenous contrast. COMPARISON: None. HISTORY: ORDERING SYSTEM PROVIDED HISTORY: Paresthesia of both hands TECHNOLOGIST PROVIDED HISTORY: paresthesia in the upper limbs and left lower limb Is the patient ?->No; ORDERING SYSTEM PROVIDED HISTORY: Paresthesia of both hands TECHNOLOGIST PROVIDED HISTORY: paresthesia both arms and left lower limb Is the patient ?->No FINDINGS: MRI brain: INTRACRANIAL STRUCTURES/VENTRICLES: There is no acute infarct. No mass effect or midline shift. No evidence of an acute intracranial hemorrhage. The ventricles and sulci are normal in size and configuration. The sellar/suprasellar regions appear unremarkable. The normal signal voids within the major intracranial vessels appear maintained. ORBITS: The visualized portion of the orbits demonstrate no acute abnormality. SINUSES: There is scattered mild mucosal thickening in the paranasal sinuses. The bilateral mastoid air cells are clear. BONES/SOFT TISSUES: The bone marrow signal intensity appears normal. The soft tissues demonstrate no acute abnormality. MRI cervical spine: BONES/ALIGNMENT: There is straightening and mild reversal of normal cervical lordosis. There is normal alignment of the cervical spine. The vertebral body heights are maintained. The bone marrow signal appears unremarkable. No fracture or destructive osseous lesion. The intervertebral disc heights are grossly maintained. There is congenitally narrow cervical spinal canal. SPINAL CORD: No abnormal signal in the cervical spinal cord. SOFT TISSUES: No paraspinal mass identified. C2-3: There is no spinal canal narrowing no foraminal narrowing. There is minimal spinal canal narrowing. C3-4: There is no significant disc herniation, spinal canal stenosis or neural foraminal narrowing. C4-5: There is no significant disc herniation, spinal canal stenosis or neural foraminal narrowing. C5-6: There is no significant disc herniation, spinal canal stenosis or neural foraminal narrowing. C6-7: There is no significant disc herniation, spinal canal stenosis or neural foraminal narrowing. C7-T1: There is no significant disc herniation, spinal canal stenosis or neural foraminal narrowing. IMPRESSION: MRI brain: No acute intracranial abnormality. MRI cervical spine: No acute abnormality in the cervical spine. Congenitally narrow cervical spinal canal, with minimal spinal canal narrowing at C2-3. No foraminal narrowing. via680 Phone: Sedimentation Rateon 021 Sed Rate 14 mm 0 - 20 mm via680 Phone: Vitamin B12 & Folateon 08-30 Cobalamin (Vitamin B12) [Mass/Vol] 458 pg/mL 232 - 1245 pg/mL via680 Phone: Folate >20.0 >4.8 ng/mL via680 Phone: CBC Auto Differentialon 08-07 Basophils (Bld) [#/Vol] 10*3/uL via680 Phone: Basophils/100 WBC (Bld) 0 % 0 - 2 % via680 Phone: Differential Type NOT REPORTED via680 Phone: Eosinophils (Bld) [#/Vol] 0.26 10*3/uL via680 Phone: Eosinophils/100 WBC (Bld) 2 % 1 - 4 % via680 Phone: Erythrocyte distribution width (RBC) [Ratio] 13.2 % 11.8 - 14.4 % via680 Phone: Hematocrit (Bld) [Volume fraction] 39.9 % 36.3 - 47.1 % via680 Phone: Hemoglobin (Bld) [Mass/Vol] 12.5 g/dL 11.9 - 15.1 g/dL via680 Phone: Immature granulocytes (Bld) [#/Vol] 1 % High 0 via680 Phone: Immature granulocytes (Bld) [#/Vol] 0.06 10*3/uL via680 Phone: Interpretation and review of laboratory results Abnormal via680 Phone: Lymphocytes (Bld) [#/Vol] 2.60 10*3/uL via680 Phone: Lymphocytes/100 WBC (Bld) 22 % Low 24 - 43 % [email or web address] Work Phone: MCH (RBC) [Entitic mass] 26.6 pg 25.2 - 33.5 pg [email or web address] Work Phone: MCHC (RBC) [Mass/Vol] 31.3 g/dL 28.4 - 34.8 g/dL [email or web address] Work Phone: MCV (RBC) [Entitic vol] 84.9 fL 82.6 - 102.9 fL via680 Phone: Monocytes (Bld) [#/Vol] 0.63 10*3/uL via680 Phone: Monocytes/100 WBC (Bld) 5 % 3 - 12 % [email or web address] Work Phone: Platelet mean volume (Bld) [Entitic vol] 9.6 fL 8.1 - 13.5 fL via680 Phone: Platelets (Bld) [#/Vol] 341 10*3/uL via680 Phone: Platelets (Bld) [#/Vol] NOT REPORTED via680 Phone: RBC (Bld) [#/Vol] 4.70 10*6/uL 3.95 - 5.1 1 m/uL [email or web address] Work Phone: RBC morphology finding Nom (Bld) NOT REPORTED via680 Phone: Segmented neutrophils/100 WBC (Bld) 70 % High 36 - 65 % [email or web address] Work Phone: Segs Absolute 8.29 High [employer] Work Phone: WBC (Bld) [#/Vol] 0.0 10*3/uL 0.0 per 10 0 WBC via680 Phone: WBC (Bld) [#/Vol] 11.9 10*3/uL High via680 Phone: WBC Morphology NOT REPORTED [employer] Phone: CT ABDOMEN PELVIS W IV CONTR AST Additional Contrast? Noneon 08-29-2020 Lanre, Mhpn Incoming Radiant Results From Primo Round/Postini - 08/29/2020 12:02 PM EST EXAMINATION: CT OF THE ABDOMEN AND PELVIS WITH CONTRAST 08/29/2020 11:26 am TECHNIQUE: CT of the abdomen and pelvis was performed with the administration of intravenous contrast. Multiplanar reformatted images are provided for review. Dose modulation, iterative reconstruction, and/or weight based adjustment of the mA/kV was utilized to reduce the radiation dose to as low as reasonably achievable. COMPARISON: Multiple prior examinations most recently 10/11/2019 HISTORY: ORDERING SYSTEM PROVIDED HISTORY: RLQ abdominal pain FINDINGS: Lower Chest: Normal heart size. Lung bases clear. Organs: The liver, spleen, pancreas, adrenal glands and kidneys appear unremarkable. Cholecystectomy. GI/Bowel: No evidence of bowel obstruction or inflammation. Normal appendix. Pelvis: Bladder and uterus appear unremarkable. Normal size right ovary. 5.1 cm well-circumscribed left ovarian cyst. Peritoneum/Retroperitone um: Normal caliber abdominal aorta. No suspicious lymphadenopathy. No ascites or free air. Bones/Soft Tissues: Mild endplate degenerative changes in the visualized thoracic spine. L1 limbus vertebrae. IMPRESSION: Negative CT examination of the abdomen and pelvis with no evidence of acute process including normal appendix. Incidental enlarged left ovarian cyst as measured above, recommend follow-up examination in 8-12 weeks to reassess. via680 Phone: EXAMINATION: CT OF Maricel Profyle ABDOMEN AND PELVIS WITH CONTRAST 08/29/2020 11:26 am TECHNIQUE: CT of the abdomen and pelvis was performed with the administration of intravenous contrast. Multiplanar reformatted images are provided for review. Dose modulation, iterative reconstruction, and/or weight based adjustment of the mA/kV was utilized to reduce the radiation dose to as low as reasonably achievable. COMPARISON: Multiple prior examinations most recently 10/11/2019 HISTORY: ORDERING SYSTEM PROVIDED HISTORY: RLQ abdominal pain FINDINGS: Lower Chest: Normal heart size. Lung bases clear. Organs: The liver, spleen, pancreas, adrenal glands and kidneys appear unremarkable. Cholecystectomy. GI/Bowel: No evidence of bowel obstruction or inflammation. Normal appendix. Pelvis: Bladder and uterus appear unremarkable. Normal size right ovary. 5.1 cm well-circumscribed left ovarian cyst. Peritoneum/Retroperitone um: Normal caliber abdominal aorta. No suspicious lymphadenopathy. No ascites or free air. Bones/Soft Tissues: Mild endplate degenerative changes in the visualized thoracic spine. L1 limbus vertebrae. via680 Phone: Negative CT examinat ion of the abdomen and pelvis with no evidence of acute process including normal appendix. Incidental enlarged left ovarian cyst as measured above, recommend follow-up examination in 8-12 weeks to reassess. via680 Phone: Comprehensive Metabolic Pane julián 08-29-2020 Albumin [Mass/Vol] 3.8 g/dL 3.5 - 5.2 g/dL via680 Phone: Albumin/Globulin [Mass ratio] 1.2 {ratio} via680 Phone: ALP [Catalytic activity/Vol] 60 U/L 35 - 104 U/L via680 Phone: ALT [Catalytic activity/Vol] 18 U/L 5 - 33 U/L via680 Phone: Anion gap [Moles/Vol] 12 mmol/L 9 - 17 mmol/L via680 Phone: AST [Catalytic activity/Vol] 20 U/L <32 via680 Phone: Bilirubin Ql (U) 0.39 mg/dL 0.3 - 1.2 mg/dL via680 Phone: Bun/Cre Ratio 22 High [employer] Work Phone: Calcium [Mass/Vol] 8.6 mg/dL 8.6 - 10. 4 mg/dL via680 Phone: Chloride [Moles/Vol] 102 mmol/L 98 - 10 7 mmol/L via680 Phone: CO2 [Moles/Vol] 23 mmol/L 20 - 31 mmol/L via680 Phone: Creatinine [Mass/Vol] 0.55 mg/dL 0.5 - 0.9 mg/dL via680 Phone: GFR >60 >60 mL/min [employer] Phone: GFR Non- >60 >60 mL/min via680 Phone: Glucose [Mass/Vol] 88 mg/dL 70 - 99 mg/dL via680 Phone: Interpretation and review of laboratory results Abnormal via680 Phone: Potassium [Moles/Vol] 4.3 mmol/L 3.7 - 5.3 mmol/L via680 Phone: Protein [Mass/Vol] 7.1 g/dL 6.4 - 8.3 g/dL via680 Phone: Sodium [Moles/Vol] 137 mmol/L 135 - 144 mmol/L via680 Phone: Urea nitrogen [Mass/Vol] 12 mg/dL 6 - 20 mg/dL via680 Phone: HCG Qualitative, Serumon hCG Qual Negative NEGATIVE via680 Phone: Comment on above: Specimens with hCG l evels near the threshold of the test (25 mIU/mL) may give a negative or indeterminate result. In such cases, another test should be performed with a new specimen in 48-72 hours. If early is suspected clinically in this setting, correlation with quantitative serum b-hCG level is suggested. [employer] has confirmed the use of plasma for this test. This has not been cleared or approved by the U.S. Food and Drug Administration. The FDA has determined that such clearance is not necessary. Lactic Acid, Plasmaon 2020 Lactate [Moles/Vol] 1.5 mmol/L 0.5 - 2. 2 mmol/L via680 Phone: Lactic Acid, Whole Blood NOT REPORTED 0.7 - 2.1 mmol/L via680 Phone: Lipaseon 08-29-2020 Lipase [Catalytic activity/Vol] 25 U/L 13 - 60 U/L via680 Phone: Metabolic Panelon 08-29-2020 GFR/1.73 sq M predicted among non-blacks MDRD (S/P/Bld) [Vol rate/Area] via680 Phone: Comment on above: Average GFR for 20-2 9 years old: 116 mL/min/1.73sq m Chronic Kidney Disease: <60 mL/min/1.73sq m Kidney failure: <15 mL/min/1.73sq m eGFR calculated using average adult body mass. Additional eGFR calculator available at: http://www.[employer]/multiple_crcl_2012.htm Stage 1: Some kidney damage normal GFR Stage 2: Mild kidney damage GFR 60-89 Stage 3: Moderate kidney damage GFR 30-59 Stage 4: Severe kidney damage GFR 15-29 Stage 5: Severe kidney damage GFR <15 ESRD - chronic treatment by dialysis or transplant Urinalysis with Microscopico n 08-29-2020 Amorphous, UA NOT REPORTED None [facility] Work Phone: Bacteria, UA TRACE Abnormal None [email or web address] Work Phone: Bilirubin Urine Negative NEGATIVE [facility] Work Phone: Casts UA NOT REPORTED /LPF [email or web address] Work Phone: Color, UA YELLOW YELLOW [email or web address] Work Phone: Crystals, UA NOT REPORTED None /HPF [email or web address] [facility] Work Phone: Epithelial Cells UA 10 TO 20 [email or web address] Work Phone: Glucose, Ur Negative NEGATIVE [facility] [employer] Work Phone: Interpretation and review of laboratory results Abnormal [facility] [employer] Work Phone: Ketones Ql (U) Negative NEGATIVE [facility] Work Phone: Leukocyte esterase Test strip Ql (U) Negative NEGATIVE [facility] [employer] Work Phone: Mucus, UA NOT REPORTED None [facility] [employer] Work Phone: Nitrite, Urine Negative NEGATIVE [facility] Work Phone: Other Observations UA NOT REPORTED NOT REQ. M [facility] [employer] Work Phone: pH, UA 6.0 [facility] [employer] Work Phone: Protein (U) [Mass/Vol] Negative NEGATIVE [facility] [employer] Work Phone: RBC (U) [#/Vol] None [facility] Work Phone: Renal Epithelial, UA NOT REPORTED 0 /HPF Me [facility] [employer] Work Phone: Specific [place], UA >1.030 [facility] [employer] Work Phone: Trichomonas, UA NOT REPORTED None [facility] Work Phone: Turbidity UA CLEAR CLEAR [facility] [employer] Work Phone: Urinalysis Comments NOT REPORTED [facility] [employer] Work Phone: Urine Hgb Negative NEGATIVE [facility] [employer] Work Phone: Urobilinogen, Urine Normal Normal [facility] [employer] Work Phone: WBC, UA 0 TO 2 [facility] [employer] Work Phone: Yeast, UA NOT REPORTED None [facility] [employer] Work Phone: - [facility] [employer] Work Phone: CBC Auto Differentialon 02-2 Basophils (Bld) [#/Vol] 0.03 10*3/uL via680 Phone: Basophils/100 WBC (Bld) 0 % 0 - 2 % via680 Phone: Differential Type NOT REPORTED via680 Phone: Eosinophils (Bld) [#/Vol] 0.33 10*3/uL via680 Phone: Eosinophils/100 WBC (Bld) 3 % 1 - 4 % [employer]680 Phone: Erythrocyte distribution width (RBC) [Ratio] 13.2 % 11.8 - 14.4 % [employer]680 Phone: Hematocrit (Bld) [Volume fraction] 39.5 % 36.3 - 47.1 % via680 Phone: Hemoglobin (Bld) [Mass/Vol] 12.0 g/dL 11.9 - 15.1 g/dL via680 Phone: Immature granulocytes (Bld) [#/Vol] 1 % High 0 via680 Phone: Immature granulocytes (Bld) [#/Vol] 0.09 10*3/uL via680 Phone: Interpretation and review of laboratory results Abnormal via680 Phone: Lymphocytes (Bld) [#/Vol] 3.52 10*3/uL [employer]680 Phone: Lymphocytes/100 WBC (Bld) 26 % 24 - 43 % via680 Phone: MCH (RBC) [Entitic mass] 26.7 pg 25.2 - 33.5 pg via680 Phone: MCHC (RBC) [Mass/Vol] 30.4 g/dL 28.4 - 34.8 g/dL via680 Phone: MCV (RBC) [Entitic vol] 87.8 fL 82.6 - 102.9 fL [employer]680 Phone: Monocytes (Bld) [#/Vol] 0.84 10*3/uL [employer]680 Phone: Monocytes/100 WBC (Bld) 6 % 3 - 12 % via680 Phone: Platelet mean volume (Bld) [Entitic vol] 9.8 fL 8.1 - 13.5 fL via680 Phone: Platelets (Bld) [#/Vol] 314 10*3/uL [email or web address] Work Phone: Platelets (Bld) [#/Vol] NOT REPORTED via680 Phone: RBC (Bld) [#/Vol] 4.50 10*6/uL 3.95 - 5.1 1 m/uL [email or web address] Work Phone: RBC morphology finding Nom (Bld) NOT REPORTED [email or web address] Work Phone: Segmented neutrophils/100 WBC (Bld) 64 % 36 - 65 % [email or web address] Work Phone: Segs Absolute 8.55 High [email or web address] [facility] Work Phone: WBC (Bld) [#/Vol] 13.4 10*3/uL High [email or web address] Work Phone: WBC (Bld) [#/Vol] 0.0 10*3/uL 0.0 per 10 0 WBC [email or web address] Work Phone: WBC Morphology NOT REPORTED [facility] Work Phone: COVID-19on 07-31-2020 SARS-CoV-2 Not Detected Not Detected [email or web address] [place] Comment on above: The specimen is NEGATIVE for SARS-CoV-2, the novel coronavirus associated with COVID-19. A negative result does not rule out COVID-19. This test has been authorized by the FDA under an Emergency Use Authorization (EUA) for use by authorized laboratories. [employer] SARS-CoV-2 Reagents for [employer] are designed to detect the virus that causes COVID-19 in patients with signs and symptoms of infection who are suspected of COVID-19. An individual without symptoms of COVID-19 and who is not shedding SARS-CoV-2 virus would expect to have a negative (not detected) result in this assay. Fact sheet for Healthcare Providers: https://www.fda.gov/media/478042/download Fact sheet for Patients: https://www.fda.gov/media/740061/download METHODOLOGY: RT-PCR SARS-CoV-2 [place] SARS-CoV-2, Rapid [place] Source .NASOPHARYNGEAL SWAB [place] Brain Natriuretic Peptideon 07-17-2020 Natriuretic peptide B (Bld) [Mass/Vol] pg/mL <300 pg/mL [place] Comment on above: Pro-BNP results mick ot be compared to BNP results. Natriuretic peptide B (Bld) [Mass/Vol] Pro-BNP Reference Range: [place], [place] Comment on above: Rule Out: <300 [place] Zone: Age <50 300-450 Age 50-75 300-900 Age >75 300-1800 Usually represents mild to moderate HF but other cardiopulmonary causes cannot be ruled out. Rule In: Age <50 >450 Age 50-75 >900 Age >75 >1800 CBC Auto Differentialon 07-06 Basophils (Bld) [#/Vol] 0.03 10*3/uL [place] Basophils/100 WBC (Bld) 0 % 0 - 2 % [place] Differential Type NOT REPORTED [place] Eosinophils (Bld) [#/Vol] 0.39 10*3/uL [place] Eosinophils/100 WBC (Bld) 3 % 1 - 4 % [place] Erythrocyte distribution width (RBC) [Ratio] 13.3 % 11.8 - 14.4 % [place] Hematocrit (Bld) [Volume fraction] 42.5 % 36.3 - 47.1 % [place] Hemoglobin (Bld) [Mass/Vol] 13.3 g/dL 11.9 - 15.1 g/dL [place] Immature granulocytes (Bld) [#/Vol] 1 % High 0 [place] Immature granulocytes (Bld) [#/Vol] 0.08 10*3/uL [place] Interpretation and review of laboratory results Abnormal [place] Lymphocytes (Bld) [#/Vol] 2.47 10*3/uL [place] Lymphocytes/100 WBC (Bld) 20 % Low 24 - 43 % [place] MCH (RBC) [Entitic mass] 26.8 pg 25.2 - 33.5 pg [place] MCHC (RBC) [Mass/Vol] 31.3 g/dL 28.4 - 34.8 g/dL [place] MCV (RBC) [Entitic vol] 85.5 fL 82.6 - 102.9 fL [place] Monocytes (Bld) [#/Vol] 1.00 10*3/uL [place] Monocytes/100 WBC (Bld) 8 % 3 - 12 % [place] Platelet mean volume (Bld) [Entitic vol] 9.6 fL 8.1 - 13.5 fL [place] Platelets (Bld) [#/Vol] NOT REPORTED [place] Platelets (Bld) [#/Vol] 415 10*3/uL [place] RBC (Bld) [#/Vol] 4.97 10*6/uL 3.95 - 5.1 1 m/uL [place] RBC morphology finding Nom (Bld) NOT REPORTED [place] Segmented neutrophils/100 WBC (Bld) 68 % High 36 - 65 % [place] Segs Absolute 8.19 High [place] WBC (Bld) [#/Vol] 0.0 10*3/uL 0.0 per 10 0 WBC [place] WBC (Bld) [#/Vol] 12.2 10*3/uL [place] WBC Morphology NOT REPORTED [place] Comprehensive Metabolic Pane julián 07-17-2020 Albumin [Mass/Vol] 4 g/dL 3.5 - 5.2 g/dL [place] Albumin/Globulin [Mass ratio] 1.1 {ratio} [place] ALP [Catalytic activity/Vol] 82 U/L 35 - 104 U/L [place] ALT [Catalytic activity/Vol] 13 U/L 5 - 33 U/L [place] Anion gap [Moles/Vol] 7 mmol/L Low 9 - 17 mmol/L [place] AST [Catalytic activity/Vol] 16 U/L <32 [place] Bilirubin Ql (U) 0.36 mg/dL 0.3 - 1.2 mg/dL [place] Bun/Cre Ratio 19 [place], [place] Calcium [Mass/Vol] 9.8 mg/dL 8.6 - 10. 4 mg/dL [place] Chloride [Moles/Vol] 105 mmol/L 98 - 10 7 mmol/L [place] CO2 [Moles/Vol] 24 mmol/L 20 - 31 mmol/L [place] Creatinine [Mass/Vol] 0.73 mg/dL 0.5 - 0.9 mg/dL [place] GFR >60 >60 mL/min [place] GFR Non- >60 >60 mL/min [place] Glucose [Mass/Vol] 100 mg/dL High 70 - 99 mg/dL [place] Interpretation and review of laboratory results Abnormal [place] Potassium [Moles/Vol] 4.0 mmol/L 3.7 - 5.3 mmol/L [place] Protein [Mass/Vol] 7.6 g/dL 6.4 - 8.3 g/dL [place] Sodium [Moles/Vol] 136 mmol/L 135 - 144 mmol/L [place] Urea nitrogen [Mass/Vol] 14 mg/dL 6 - 20 mg/dL [place] Metabolic Panelon 07-17-2020 GFR/1.73 sq M predicted among non-blacks MDRD (S/P/Bld) [Vol rate/Area] [place], [place] Comment on above: Stage 1: Some kidney damage normal GFR Stage 2: Mild kidney damage GFR 60-89 Stage 3: Moderate kidney damage GFR 30-59 Stage 4: Severe kidney damage GFR 15-29 Stage 5: Severe kidney damage GFR <15 ESRD - chronic treatment by dialysis or transplant Average GFR for 20-2 9 years old: 116 mL/min/1.73sq m Chronic Kidney Disease: <60 mL/min/1.73sq m Kidney failure: <15 mL/min/1.73sq m eGFR calculated using average adult body mass. Additional eGFR calculator available at: http://www.[employer]/multiple_crcl_2012.htm Troponinon 07-17-2020 Troponin I.cardiac [Mass/Vol] NOT REPORTED [place] Troponin T.cardiac [Mass/Vol] NOT REPORTED <0.03 ng/mL [place] Troponin, High Sensitivity <6 0 - 14 ng/L [place], [place] Comment on above: High Sensitivity Troponin values cannot be compared with other Troponin methodologies. Patients with high levels of Biotin oral intake (i.e >5mg/day) may have falsely decreased Troponin levels. Samples collected within 8 hours of biotin intake may require additional information for diagnosis. XR CHEST (SINGLE VIEW FRONTA L)on 07-09-2020 Negative chest radiograph. [place] EXAMINATION: ONE XRA Y VIEW OF THE CHEST 07/09/2020 6:18 pm COMPARISON: August 22, 2019 HISTORY: ORDERING SYSTEM PROVIDED HISTORY: sob cough covid positive TECHNOLOGIST PROVIDED HISTORY: sob cough covid positive FINDINGS: Lungs are clear. No cardiomegaly. No pulmonary edema. [place], [facility] Incoming Radiant Results From [facility] - 07/09/2020 6:40 PM EST EXAMINATION: ONE XRAY VIEW OF THE CHEST 07/09/2020 6:18 pm COMPARISON: August 22, 2019 HISTORY: ORDERING SYSTEM PROVIDED HISTORY: sob cough covid positive TECHNOLOGIST PROVIDED HISTORY: sob cough covid positive FINDINGS: Lungs are clear. No cardiomegaly. No pulmonary edema. IMPRESSION: Negative chest radiograph. [place], [place] , Urineon 0 Beta HCG ( test) Ql (U) Negative NEGATIVE [place] Comment on above: Specimens with hCG l evels near the threshold of the test (25 mIU/mL) may give a negative or indeterminate result. In such cases, another test should be performed with a new specimen in 48-72 hours. If early is suspected clinically in this setting, correlation with quantitative serum b-hCG level is suggested. [facility] for this test. This has not been cleared or approved by the U.S. Food and Drug Administration. The FDA has determined that such clearance is not necessary. XR FEMUR LEFT (MIN 2 VIEWS)o n 05-16-2020 No fracture or dislocation. [place] EXAMINATION: 2 XRAY VIEWS OF THE LEFT FEMUR 05/16/2020 1:23 am COMPARISON: None. HISTORY: ORDERING SYSTEM PROVIDED HISTORY: midshaft femur pain TECHNOLOGIST PROVIDED HISTORY: X-ray injured hip and pelvis - add femur if pain and/or swelling is distal to the hip midshaft femur pain FINDINGS: No fracture, dislocation, or focal osseous lesion is noted. No significant soft tissue abnormality seen. [place], M[facility] Incoming Radiant Results From [facility] Round/[facility]ini - 05/16/2020 1:44 AM EST EXAMINATION: 2 XRAY VIEWS OF THE LEFT FEMUR 05/16/2020 1:23 am COMPARISON: None. HISTORY: ORDERING SYSTEM PROVIDED HISTORY: midshaft femur pain TECHNOLOGIST PROVIDED HISTORY: X-ray injured hip and pelvis - add femur if pain and/or swelling is distal to the hip midshaft femur pain FINDINGS: No fracture, dislocation, or focal osseous lesion is noted. No significant soft tissue abnormality seen. IMPRESSION: No fracture or dislocation. [place] Microscopic Urinalysison Amorphous, UA NOT REPORTED None [place], [place] Bacteria, UA 1+ Abnormal None [place], [place] Casts UA NOT REPORTED /LPF [place] Crystals, UA NOT REPORTED None /HPF [place] Epithelial Cells UA 0 TO 2 [place] Interpretation and review of laboratory results Abnormal [place] Mucus, UA TRACE Abnormal None [place] Other Observations UA NOT REPORTED NOT REQ. M [place] RBC (U) [#/Vol] 2 TO 5 [facility] [place] Renal Epithelial, UA NOT REPORTED 0 /HPF Me [place] Trichomonas, UA NOT REPORTED None [facility] [place] WBC, UA None [place], [place] Yeast, UA NOT REPORTED None [place], [place] - [place] , Urineon 0 Beta HCG ( test) Ql (U) Negative NEGATIVE [place] Comment on above: Specimens with hCG l evels near the threshold of the test (25 mIU/mL) may give a negative or indeterminate result. In such cases, another test should be performed with a new specimen in 48-72 hours. If early is suspected clinically in this setting, correlation with quantitative serum b-hCG level is suggested. [employer] has confirmed the use of plasma for this test. This has not been cleared or approved by the U.S. Food and Drug Administration. The FDA has determined that such clearance is not necessary. Urinalysis Reflex to Culture on 03-20-2020 Bilirubin Urine Negative NEGATIVE [place] Color, UA YELLOW YELLOW [place], [place] Glucose, Ur Negative NEGATIVE [place] Interpretation and review of laboratory results Abnormal [place] Ketones Ql (U) Negative NEGATIVE [place] Leukocyte esterase Test strip Ql (U) Negative NEGATIVE [place], [place] Nitrite, Urine Negative NEGATIVE [place] pH, UA 6.0 [place], [place] Protein (U) [Mass/Vol] Negative NEGATIVE [place] Specific [place], UA 1.010 [place], [place] Turbidity UA CLEAR CLEAR [place] Urinalysis Comments NOT REPORTED [place], [place] Urine Hgb 2+ Abnormal NEGATIVE [place] Urobilinogen, Urine Normal Normal [place] XR LUMBAR SPINE (2-3 VIEWS)o n 03-20-2020 Lan[facility], M[facility]pn Incoming Radiant Results From [facility] Round/Postini - 03/20/2020 11:00 PM EDT EXAMINATION: THREE XRAY VIEWS OF THE LUMBAR SPINE 03/20/2020 10:46 pm COMPARISON: None. HISTORY: ORDERING SYSTEM PROVIDED HISTORY: Back pain TECHNOLOGIST PROVIDED HISTORY: Back pain FINDINGS: The lumbar spine demonstrates normal lordosis and alignment. Vertebral body heights are normal. No evidence of acute fracture, dislocation or subluxation is identified. Intervertebral joint spaces are preserved. Facet joints are unremarkable. Bone mineralization is within normal limits. Paravertebral soft tissues are unremarkable. IMPRESSION: Unremarkable radiographic views of the lumbar spine. [place] EXAMINATION: THREE X RAY VIEWS OF THE LUMBAR SPINE 03/20/2020 10:46 pm COMPARISON: None. HISTORY: ORDERING SYSTEM PROVIDED HISTORY: Back pain TECHNOLOGIST PROVIDED HISTORY: Back pain FINDINGS: The lumbar spine demonstrates normal lordosis and alignment. Vertebral body heights are normal. No evidence of acute fracture, dislocation or subluxation is identified. Intervertebral joint spaces are preserved. Facet joints are unremarkable. Bone mineralization is within normal limits. Paravertebral soft tissues are unremarkable. [place] Unremarkable radiographic views of the lumbar spine. [place], [place] hCG, Serum, Qualitativeon hCG Qual Negative NEGATIVE [place], [place] Comment on above: Specimens with hCG l evels near the threshold of the test (25 mIU/mL) may give a negative or indeterminate result. In such cases, another test should be performed with a new specimen in 48-72 hours. If early is suspected clinically in this setting, correlation with quantitative serum b-hCG level is suggested. [facility] the use of plasma for this test. This has not been cleared or approved by the U.S. Food and Drug Administration. The FDA has determined that such clearance is not necessary. COVID-19on 11-13-2019 SARS-CoV-2 Not Detected Not Detected [place], [place] Comment on above: The specimen is NEGATIVE for SARS-CoV-2, the novel coronavirus associated with COVID-19. A negative result does not rule out COVID-19. This test has been authorized by the FDA under an Emergency Use Authorization (EUA) for use by authorized laboratories. Fact sheet for Healthcare Providers: https://www.fda.gov/media/640813/download Fact sheet for Patients: https://www.fda.gov/media/815826/download METHODOLOGY: RT-PCR SARS-CoV-2, PCR [place] SARS-CoV-2, Rapid [facility] [place] Source .NASOPHARYNGEAL SWAB [place] CBC Auto Differentialon 04-0 Basophils (Bld) [#/Vol] 10*3/uL [place] Basophils/100 WBC (Bld) 0 % 0 - 2 % [place] Differential Type NOT REPORTED [place] Eosinophils (Bld) [#/Vol] 0.32 10*3/uL [place] Eosinophils/100 WBC (Bld) 2 % 1 - 4 % [place] Erythrocyte distribution width (RBC) [Ratio] 15.2 % High 11.8 - 14.4 % [place] Hematocrit (Bld) [Volume fraction] 42.6 % 36.3 - 47.1 % [place] Hemoglobin (Bld) [Mass/Vol] 13.2 g/dL 11.9 - 15.1 g/dL [place] Immature granulocytes (Bld) [#/Vol] 0.03 10*3/uL [place] Immature granulocytes (Bld) [#/Vol] 0 % 0 [place] Interpretation and review of laboratory results Abnormal [place] Lymphocytes (Bld) [#/Vol] 3.65 10*3/uL [place] Lymphocytes/100 WBC (Bld) 27 % 24 - 43 % [place] MCH (RBC) [Entitic mass] 25.6 pg 25.2 - 33.5 pg [place] MCHC (RBC) [Mass/Vol] 31.0 g/dL 28.4 - 34.8 g/dL [place] MCV (RBC) [Entitic vol] 82.6 fL 82.6 - 102.9 fL [place] Monocytes (Bld) [#/Vol] 0.75 10*3/uL [place] Monocytes/100 WBC (Bld) 6 % 3 - 12 % [place] Platelet mean volume (Bld) [Entitic vol] 10.0 fL 8.1 - 13.5 fL [place] Platelets (Bld) [#/Vol] NOT REPORTED [facility] Platelets (Bld) [#/Vol] 339 10*3/uL [facility] RBC (Bld) [#/Vol] 5.16 10*6/uL High 3.95 - 5.1 1 m/uL [facility] RBC morphology finding Nom (Bld) NOT REPORTED [place], [place] Segmented neutrophils/100 WBC (Bld) 65 % 36 - 65 % [place], [place] Segs Absolute 8.74 High [facility] [place] WBC (Bld) [#/Vol] 13.5 10*3/uL [place] WBC (Bld) [#/Vol] 0.0 10*3/uL 0.0 per 10 0 WBC [place] WBC Morphology NOT REPORTED [place] CT ABDOMEN PELVIS W IV CONTR AST Additional Contrast? Noneon 10-11-2019 Lanre, M[facility]pn Incoming Radiant Results From [facility] - 10/11/2019 1:08 PM EDT EXAMINATION: CT OF THE ABDOMEN AND PELVIS WITH CONTRAST 10/11/2019 12:43 pm TECHNIQUE: CT of the abdomen and pelvis was performed with the administration of intravenous contrast. Multiplanar reformatted images are provided for review. Dose modulation, iterative reconstruction, and/or weight based adjustment of the mA/kV was utilized to reduce the radiation dose to as low as reasonably achievable. COMPARISON: 02/22/2018 HISTORY: ORDERING SYSTEM PROVIDED HISTORY: [facility] abdominal pain TECHNOLOGIST PROVIDED HISTORY: [facility] abdominal pain FINDINGS: Lower Chest: Visualized portions of the lower thorax are unremarkable. Organs: Liver, spleen, pancreas, adrenal glands, and kidneys appear unremarkable. Gallbladder surgically absent. GI/Bowel: No bowel obstruction. Normal appendix. Pelvis: Urinary bladder and uterus within normal limits. Peritoneum/Retroperitone um: No free air, fluid, or lymphadenopathy. Bones/Soft Tissues: No acute osseous abnormality. IMPRESSION: No CT evidence of acute intra-abdominal process. [place] No CT evidence of ac [place] intra-abdominal process. [place] EXAMINATION: [facility] OF [facility] ABDOMEN AND PELVIS WITH CONTRAST 10/11/2019 12:43 pm TECHNIQUE: CT of the abdomen and pelvis was performed with the administration of intravenous contrast. Multiplanar reformatted images are provided for review. Dose modulation, iterative reconstruction, and/or weight based adjustment of the mA/kV was utilized to reduce the radiation dose to as low as reasonably achievable. COMPARISON: 02/22/2018 HISTORY: ORDERING SYSTEM PROVIDED HISTORY: [facility] abdominal pain TECHNOLOGIST PROVIDED HISTORY: Q abdominal pain FINDINGS: Lower Chest: Visualized portions of the lower thorax are unremarkable. Organs: Liver, spleen, pancreas, adrenal glands, and kidneys appear unremarkable. Gallbladder surgically absent. GI/Bowel: No bowel obstruction. Normal appendix. Pelvis: Urinary bladder and uterus within normal limits. Peritoneum/Retroperitone um: No free air, fluid, or lymphadenopathy. Bones/Soft Tissues: No acute osseous abnormality. [place] Comprehensive Metabolic Pane l w/ Reflex to MGon 10-11-2019 Albumin [Mass/Vol] 4.2 g/dL 3.5 - 5.2 g/dL [place] Albumin/Globulin [Mass ratio] 1.3 {ratio} [place] ALP [Catalytic activity/Vol] 75 U/L 35 - 104 U/L [place] ALT [Catalytic activity/Vol] 20 U/L 5 - 33 U/L [place] Anion gap [Moles/Vol] 14 mmol/L 9 - 17 mmol/L [place] AST [Catalytic activity/Vol] 17 U/L <32 [place] Bilirubin Ql (U) 0.18 mg/dL Low 0.3 - 1.2 mg/dL [place] Bun/Cre Ratio 13 [place] Calcium [Mass/Vol] 9.0 mg/dL 8.6 - 10. 4 mg/dL [place] Chloride [Moles/Vol] 104 mmol/L 98 - 10 7 mmol/L [place] CO2 [Moles/Vol] 24 mmol/L 20 - 31 mmol/L [place] Creatinine [Mass/Vol] 0.62 mg/dL 0.5 - 0.9 mg/dL [place] GFR >60 >60 mL/min [place] GFR Non- >60 >60 mL/min [place] Glucose [Mass/Vol] 129 mg/dL High 70 - 99 mg/dL [place] Interpretation and review of laboratory results Abnormal [place] Potassium [Moles/Vol] 3.7 mmol/L 3.7 - 5.3 mmol/L [place] Protein [Mass/Vol] 7.4 g/dL 6.4 - 8.3 g/dL [place] Sodium [Moles/Vol] 142 mmol/L 135 - 144 mmol/L [place] Urea nitrogen [Mass/Vol] 8 mg/dL 6 - 20 mg/dL [place] HCG Qualitative, Serumon hCG Qual Negative NEGATIVE [place] Comment on above: Specimens with hCG l evels near the threshold of the test (25 mIU/mL) may give a negative or indeterminate result. In such cases, another test should be performed with a new specimen in 48-72 hours. If early is suspected clinically in this setting, correlation with quantitative serum b-hCG level is suggested. [facility] the use of plasma for this test. This has not been cleared or approved by the U.S. Food and Drug Administration. The FDA has determined that such clearance is not necessary. Lipaseon 10-11-2019 Lipase [Catalytic activity/Vol] 33 U/L 13 - 60 U/L [place] Metabolic Panelon 10-11-2019 GFR/1.73 sq M predicted among non-blacks MDRD (S/P/Bld) [Vol rate/Area] [place] Comment on above: Stage 1: Some kidney damage normal GFR Stage 2: Mild kidney damage GFR 60-89 Stage 3: Moderate kidney damage GFR 30-59 Stage 4: Severe kidney damage GFR 15-29 Stage 5: Severe kidney damage GFR <15 ESRD - chronic treatment by dialysis or transplant Average GFR for 20-2 9 years old: 116 mL/min/1.73sq m Chronic Kidney Disease: <60 mL/min/1.73sq m Kidney failure: <15 mL/min/1.73sq m eGFR calculated using average adult body mass. Additional eGFR calculator available at: http://www.Procur[employer].com/multiple_crcl_2012.htm Microscopic Urinalysison Amorphous, UA NOT REPORTED None [place], [place] Bacteria, UA NOT REPORTED None [place] Casts UA NOT REPORTED /LPF [place] Crystals, UA NOT REPORTED None /HPF [place] Epithelial Cells UA 0 TO 2 [place] Mucus, UA NOT REPORTED None [place] Other Observations UA NOT REPORTED NOT REQ. M [place] RBC (U) [#/Vol] None [facility], [place] Renal Epithelial, UA NOT REPORTED 0 /HPF [place] Trichomonas, UA NOT REPORTED None [facility] [place] WBC, UA None [place] Yeast, UA NOT REPORTED None [place] Urinalysis Reflex to Culture on 10-11-2019 Bilirubin Urine Negative NEGATIVE [place] Color, UA YELLOW YELLOW [place] Glucose, Ur Negative NEGATIVE [place] Interpretation and review of laboratory results Abnormal [place] Ketones Ql (U) Negative NEGATIVE [place] Leukocyte esterase Test strip Ql (U) Negative NEGATIVE [place] Nitrite, Urine Negative NEGATIVE [place] pH, UA 6.5 [place] Protein (U) [Mass/Vol] Negative NEGATIVE [place] Specific [place], UA 1.025 High [place] Turbidity UA CLEAR CLEAR [place] Urinalysis Comments NOT REPORTED [place], [place] Urine Hgb Negative NEGATIVE [place] Urobilinogen, Urine Normal Normal [place] Rapid influenza A/B antigens on 08-22-2019 Direct Exam Presumptive negative for the presence of Influenza A and Influenza B antigen. PCR confirmation of negative results is recommended, since the antigen present in the specimen may be below the detection limit of the test. [facility] Numedeon Phone: Special Requests NOT REPORTED [facility] Work Phone: Specimen Description .NASOPHARYNGEAL SWAB [email or web address] Phone: XR CHEST STANDARD (2 VW)on 0 08-22-2019 No acute process. PGP [facility] Work Phone: EXAMINATION: TWO XRA Y VIEWS OF THE CHEST 08/22/2019 4:12 pm COMPARISON: September 13, 2018 HISTORY: ORDERING SYSTEM PROVIDED HISTORY: cough TECHNOLOGIST PROVIDED HISTORY: cough FINDINGS: The lungs are without acute focal process. There is no effusion or pneumothorax. The cardiomediastinal silhouette is without acute process. The osseous structures are without acute process. [email or web address] Phone: [place], Mhpn Incoming Radiant Results From [facility] - 08/22/2019 4:18 PM EST EXAMINATION: TWO XRAY VIEWS OF THE CHEST 08/22/2019 4:12 pm COMPARISON: September 13, 2018 HISTORY: ORDERING SYSTEM PROVIDED HISTORY: cough TECHNOLOGIST PROVIDED HISTORY: cough FINDINGS: The lungs are without acute focal process. There is no effusion or pneumothorax. The cardiomediastinal silhouette is without acute process. The osseous structures are without acute process. IMPRESSION: No acute process. [email or web address] Phone: CARDIAC GARCIA ADMITon 018 CKMB 1.17 ng/mL Normal <=2.37 [facility] Comment on above: Performed By: #### C DIONISIO GOMEZ ####[facility] Zibokgutvo9513 [address] Creatine kinase (CK) 138 U/L Critically high 30-135 [facility] Comment on above: Performed By: #### C DIONISIO GOMEZ ####[facility] Davyvdmycj7631 [address] [place] GUI 39.0 ng/mL Normal <=61.5 [facility] Comment on above: Performed By: #### C DIONISIO GOMEZ ####[facility] Ksttbvewwp2783 [address] [place] TROP <0.012 Normal <=0.034 [facility] Comment on above: Performed By: #### C LA NENA GOMEZDM ####[facility] Uhnhfzzqbm8464 [place], [place] [address]Ysgtqm Radha CBC AUTO DIFFon 07-09-2017 Basophils Auto #/vol (Bld) 0.0 103/ul Normal 0.0-0.1 [facility] Comment on above: Performed By: #### C BC ####[facility] [address] [place], [place] [id number] Radha Basophils/100 WBC Auto (Bld) 0.2 % Normal 0.2-2.0 [facility] Comment on above: Performed By: #### C BC ####[facility] Ezricpfwq[address] [place], [place] [id number] [place] Eosinophils 0.3 103/ul Normal 0.0-0.7 [facility] Comment on above: Performed By: #### C BC ####[facility] [address] [place] [address] Radha Eosinophils/100 leukocytes 2.2 % Normal 0.9-7.0 [facility] Comment on above: Performed By: #### C BC ####[facility] [address]ctof[address] [place], [place] [address]Gerken Radha Erythrocyte distribution width Auto Ratio (RBC) 12.2 % Normal 11.0-15.0 [facility] Comment on above: Performed By: #### C BC ####[facility] Ies[address]kw[address] [place], [place] [address]Gerken [place] Erythrocytes (RBC) 4.44 106/ul Normal 4.20-5.40 [facility] Comment on above: Performed By: #### C BC ####[facility] Vxpy[address]gedn[address] [place], [place] [address]Gerken [place]ha Hematocrit (HCT) 37.3 % Normal 36.0-48.0 [facility] Comment on above: Performed By: #### C BC ####[facility] Jzym[address]pr[address] [place], [place] [address]Gerken Radha Hemoglobin mass conc (Bld) 12.5 g/dL Normal 12.0-16.0 [facility] Comment on above: Performed By: #### C BC ####[facility] Alacsawlnb0328 [place] [address]Gerken Radha IG # 0.06 10e3/ul Critically high 0.00-0.03 [facility] Comment on above: Performed By: #### C BC ####[facility] Larmbthtcx4573 [address] Radha IG % 0.5 % Normal 0.0-0.5 [facility] Comment on above: Performed By: #### C BC ####[facility] Oxjhzjrtwu4034 [address] [place]ha Lymphocytes 2.1 103/ul Normal 1.2-3.8 [facility] Comment on above: Performed By: #### C BC ####[facility] Hluzbvbpsc4194 [address] [place]ha Lymphocytes/100 leukocytes 18.7 % Critically low 20.5-60.0 [facility] Comment on above: Performed By: #### C BC ####[facility] Vpbqowzmwv5111 [address] [place] MANUAL DIFF REQ NO Normal [facility] Comment on above: Performed By: #### C BC ####[facility] Itzihkhswe7994 [address] Radha MCH 28.2 pg Normal 26.7-34.0 [facility] Comment on above: Performed By: #### C BC ####[facility] Kodnflndks0441 [address] Radha MCHC mass conc (RBC) 33.5 g/dL Normal 29.9-35.2 [facility] Comment on above: Performed By: #### C BC ####[facility] Eapewkuanu2185 [address] [place] MCV 84.0 fL Normal 81.0-99.0 [facility] Comment on above: Performed By: #### C BC ####[facility] Zxexbeetux050[address] [place]ha Monocytes 0.6 103/ul Normal 0.3-0.8 [facility] Comment on above: Performed By: #### C BC ####[facility] Dtnpopeosf4372 [place], [place] [address]Jlinek Radha Monocytes/100 leukocytes 5.4 % Normal 1.7-12.0 [facility] Comment on above: Performed By: #### C BC ####[facility] Ihxqebndmf9168 [place], [place] [address]Oweieb Radha Neutrophils 8.3 103/ul Critically high 1.4-6.5 [facility] Comment on above: Performed By: #### C BC ####[facility] Xfcutqzzen8615 [place], [place] [address]Ppjozk Radha Neutrophils/100 WBC Auto (Bld) 73.0 % Normal 43.0-75.0 [facility] Comment on above: Performed By: #### C BC ####[facility] Dhtpqcpmer0075 [place], [place] [address]Ecaxul Radha Platelet mean volume (PMV) 9.7 fL Normal 9.5-13.5 [facility] Comment on above: Performed By: #### C BC ####[facility] Drkgigjbax5163 [place], [place] [address]Fxlnxh Radha Platelets 321 103/ul Normal 150-450 [facility] Comment on above: Performed By: #### C BC ####[facility] Mvleaulhhu9806 [place], [place] [address]Dcsmlx Radha WBC (Leukocytes) 11.4 103/ul Critically high 4.0-11.0 [facility] Comment on above: Performed By: #### C BC ####[facility] Aanexiomfh3903 [place], [place] [address]Rmupvj Radha CTA CHEST W CONon 07-09-2017 CTA CHEST W CON [address] [facility] [place] [address] Patient: OSWALD COX Exam Date: 07/09/2017DOB: 1995 Gender:F : DR VALERO MARKER Admission #: [id number] : DR GARCIA BRADLEY Order #: [id number] HERE TO VIEW EXAM RADIOLOGY REPORT CT ANGIOGRAPHY OF THE CHEST WITH INTRAVENOUS CONTRAST 1=4=18: Sagittal and coronal reconstruction images performed. HISTORY: Left side chest pain. Pain while driving. FINDINGS: No acute process seen involving the thyroid gland. Slight prominence to the heart size. No pulmonary embolus. No thoracic aortic aneurysm or dissection. No lobar consolidation, edema, pleural effusion, or pneumothorax. No adenopathy. Fatty infiltration of the liver with prior cholecystectomy. IMPRESSION:1. NO ACUTE PROCESS SEEN IN THE PULMONARY ARTERIES WITH NO FEATURES TO SUGGEST EMBOLUS. 2. NO THORACIC AORTIC ANEURYSM OR DISSECTION.3. SLIGHT PROMINENCE TO THE HEART SIZE. 4. CHOLECYSTECTOMY. Dictated by: Whit LOOMIS on 07/09/2017 at 03:48 Transcribed by: Flip on 07/15/2017 at 08:15 Approved by: Sabino Bingham M.D. on 07/15/2017 at 15:03 Normal [facility] D-DIMERon 07-09-2017 D-DIMER COMMENTS SEE BELOW Normal [facility] Comment on above: Result Comment: Incr eases in D-Dimer concentration observed with thromboembolic events can be variable due to localization, size, and age of the thrombus. Therefore, a thromboembolic event cannot be diagnosed with certainty on the basis of the reference range. D-Dimers may also be elevated for a variety of disorders including: advanced age, , coronary disease, cancer, liver disease, infection, inflammation, hematoma, DIC, trauma, post-surgery, diabetes, thrombolytic or anticoagulant therapy, stress, and generalizd hospitalization. Performed By: #### D DIM ####[facility] Oxxlyaiydi1978 [address] Fibrin D-dimer FEU 0.46 ug/mL Normal 0.19-0.50 [facility] Comment on above: Performed By: #### D DIM ####[facility] Uqnnvsuksg216[address] PREG HCG QUALon 07-09-2017 , QUAL Negative Normal NEGATIVE [facility] Comment on above: Performed By: #### P REG ####[facility] Lgfaxdcfxt4987 [address] PROF 14(COMP METB)on 018 Alanine aminotransferase (ALT) 50 U/L Normal 9-52 [facility] Comment on above: Performed By: #### C DIONISIO GOMEZ ####[facility] Goilsmcjwh6184 [address] [place] Albumin 4.1 g/dL Normal 3.5-5.0 [facility] Comment on above: Performed By: #### C DIONISIO GOMEZ ####[facility] Qgfwjeamir8642 [address] [place] Albumin/Globulin Ratio 1.3 {ratio} Normal [facility] Comment on above: Performed By: #### C DIONISIO GOMEZ ####[facility] [address] [place] [address] Radha Alkaline phosphatase (ALP) 65 U/L Normal 38-126 [facility] Comment on above: Performed By: #### C DIONISIO GOMEZ ####[facility] [address] [place] [address] [place] Anion gap 13.8 mmol/L Normal [facility] Comment on above: Performed By: #### C DIONISIO GOMEZ ####[facility] [address] [place] [address] [place]ha Aspartate aminotransferase (AST) 29 U/L Normal 14-36 [facility] Comment on above: Performed By: #### C DIONISIO GOMEZ ####[facility] Walt[address] [place] [address] [place] Bilirubin Ql (U) 1.0 mg/dL Normal 0.2-1.3 The [facility] Comment on above: Performed By: #### C DIONISIO GOMEZ ####[facility] [address]vx[address] [place] [address] Radha BUN/Creatinine Ratio 15.7 mg/mg Normal [facility] Comment on above: Performed By: #### C DIONISIO GOMEZ ####[facility] [address] [place] [address] [place]ha Calcium 9.2 mg/dL Normal 8.4-10.2 [facility] Comment on above: Performed By: #### C JASON, CMADM ####[facility] Mpiftfpyvj1349 [place], [place] [address]Sgakme Radha Chloride 106 mmol/L Normal 98-107 [facility] Comment on above: Performed By: #### C MP, CMADM ####[facility] Wtpjgrbkrl7785 [place], [place] [address]Tvbqwx Radha CO2 26.0 mmol/L Normal 22.0-30.0 [facility] Comment on above: Performed By: #### C JASON, CMADM ####[facility] Igksfludpc7297 [place] [address]Gerken [place] Creatinine 0.67 mg/dL Normal 0.52-1.04 [facility] Comment on above: Performed By: #### C JASON, CMADM ####[facility] Grvyfwictu7660 [place] [address]Gerken Radha eGFR (non-black) mL/min/{1.73_m2} Normal >=60 [facility] Comment on above: Performed By: #### C JASON, CMADM ####[facility] Zbhjtbduvd9992 [place], [place] [address]Tafobb Radha Globulin 3.3 g/dL Normal [facility] Comment on above: Performed By: #### C JASON, CMADM ####[facility] Omaxjatlji0234 [place], [place] [address]Yvjsnr Radha Glucose mass conc 89 mg/dL Normal 74-106 [facility] Comment on above: Performed By: #### C JASON, CMADM ####[facility] Avrzhsmizn9774 [place] [address]Gerken [place] Potassium molar conc 3.8 mmol/L Normal 3.4-5.0 [facility] Comment on above: Performed By: #### C JASON, CMADM ####[facility] Kkmjhydekp9639 [place] [address]Gerken Radha Protein 7.4 g/dL Normal 6.1-8.2 [facility] Comment on above: Performed By: #### C DIONISIO GOMEZ ####[facility] Nmbwxdgpts3661 [address] [place]ha Sodium 142 mmol/L Normal 137-145 [facility] Comment on above: Performed By: #### C DIONISIO GOMEZ ####[facility] [address] [place] [address] [place]ha Urea nitrogen 11.0 mg/dL Normal 7.0-17.0 The [facility] Comment on above: Performed By: #### C DIONISIO GOMEZ ####[facility] [address] [place] [address] Radha PROTIMEon 07-09-2017 INR Coag RelTime (Bld) SEE BELOW Normal [facility] Comment on above: Result Comment: MYRIAM RED INR: 2.0 - 3.0 CONDITIONS NOT LISTED BELOW 2.5 - 3.5 FOR PROSTHETIC HEART VALVE REPLACEMENT 2.5 - 3.5 RECURRENT THROMBOSIS Performed By: #### P TT, PT ####[facility] [address] [place] [address] Radha Result Comment: <0.0 34 ng/ml NEGATIVE 0.034-0.119 INDETERMINATE 0.120 AMI CUT OFF Performed By: #### C DIONISIO GOMEZ ####[facility] [address] [place] [address] Radha INR Coag RelTime (PPP) 1.01 {INR} Normal [facility] Comment on above: Performed By: #### P TT, PT ####[facility] Apr[address]ui[address] [place] [address] [place]ha Prothrombin time (PT) Coag time (PPP) 10.4 s Normal 9.7-11.7 [facility] Comment on above: Performed By: #### P TT, PT ####[facility] [address] [place] [address] Radha PT NORMAL PLEASE NOTE: NORMAL RANGE CHANGE 03-23-2014 DUE TO REAGENT LOT CHANGE Normal [facility] Comment on above: Performed By: #### P TT, PT ####[facility] Web[address]jzl[address] [place], [place] [address]Becky Garcia PTTon 07-09-2017 aPTT 26.2 s Normal 22.1-30.2 [facility] Comment on above: Performed By: #### P TT, PT ####[facility] Aogvnecfsa2313 [place], [place] [address]UbtighBecky Garcia aPTT PLEASE NOTE: NORMAL RANGE CHANGE 05-30-2015 DUE TO REAGENT LOT CHANGE Normal [facility] Comment on above: Performed By: #### P TT, PT ####[facility] Ihqwdkmndy0212 [place], [place] [address]UfpelsBecky Garcia XR CHEST 2 Von 07-09-2017 XR CHEST 2 V [address] [place] [address] Patient: OSWALD COX Exam Date: 07/09/2017DOB: 1995 Gender:F : DR ANJUM AVERY Admission #: [id number] : DR GARCIA BRADLEY Order #: [id number] HERE TO VIEW EXAM RADIOLOGY REPORT PROCEDURE: RADIOGRAPH CHEST 2 VIEWS COMPARISON: XR CHEST 2 V, 10/22/2016. INDICATIONS: Acute left upper chest pain and syncope FINDINGS: LUNGS: No significant pulmonary parenchymal abnormalities. VASCULATURE: No increased pulmonary vasculature. PLEURA: No pneumothorax, effusion, or pleural thickening. CARDIAC: No cardiomegaly or cardiac silhouette abnormality. MEDIASTINUM: No visible mass or adenopathy. BONES: No fracture or visible bone lesion. OTHER: Negative. CONCLUSION: Normal examination. Dictated by: Leonard Li M.D. on 07/09/2017 at 08:12 Approved by: Leonard Li M.D. on 07/09/2017 at 08:13 Normal [facility] Vital Signs Date Time Vital Sign Value Performing Clinician Facility 09-14-2024 07:36-0400 Body height 175.3 cm AVILA Kinney Work Phone: [facility] 09-14-2024 07:36-0400 Body mass index (BMI) [Ratio] 49.03 kg/m2 AVILA Kinney Work Phone: [facility] 09-14-2024 07:36-0400 Body weight 150.59 kg Lisa Shendge V, PA Work Phone: [facility] 09-14-2024 07:36-0400 Diastolic blood pressure 74 mm[Hg] Lisa Shendge V, PA Work Phone: [facility] [employer] [facility] 09-14-2024 07:36-0400 Heart rate 72 /min Lisa Shendge V, PA Work Phone: [facility] 09-14-2024 07:36-0400 Respiratory rate 18 /min Lisa Shendge V, PA Work Phone: [facility] 09-14-2024 07:36-0400 Systolic blood pressure 120 mm[Hg] Lisa Shendge V, PA Work Phone: [facility] 2024 09:38-0500 Body mass index (BMI) [Ratio] 47.3 kg/m2 Janettejose luis Fengnz STRATIGRAPHER-PROFESSIONAL PROGRAMMER ANALYST Work Phone: [facility] 2024 09:38-0500 Body weight 144.88 kg Janette Jungnz STRATIGRAPHER-PROFESSIONAL PROGRAMMER ANALYST Work Phone: [facility] 2024 09:38-0500 Diastolic blood pressure 80 mm[Hg] Janette Jungnz STRATIGRAPHER-PROFESSIONAL PROGRAMMER ANALYST Work Phone: [facility] 2024 09:38-0500 Systolic blood pressure 120 mm[Hg] Janette Glanz STRATIGRAPHER-PROFESSIONAL PROGRAMMER ANALYST Work Phone: [facility] 06-09-2024 14:01-0500 Body height 175 cm Janette Glanz STRATIGRAPHER-PROFESSIONAL PROGRAMMER ANALYST Work Phone: [facility] 06-09-2024 14:01-0500 Body mass index (BMI) [Ratio] 46.65 kg/m2 Janette Jungnz STRATIGRAPHER-PROFESSIONAL PROGRAMMER ANALYST Work Phone: [employer] 06-09-2024 14:01-0500 Body weight 142.88 kg Janette Miller APRN-PROFESSIONAL PROGRAMMER ANALYST Work Phone: [employer] 06-09-2024 14:01-0500 Diastolic blood pressure 83 mm[Hg] Janette Miller APRN-PROFESSIONAL PROGRAMMER ANALYST [facility] Phone[facility] Comment on above: Auto 06-09-2024 14:01-0500 Heart rate 71 /min Janette Miller STRATIGRAPHER-PROFESSIONAL PROGRAMMER ANALYST Work Phone: [employer] 06-09-2024 14:01-0500 Systolic blood pressure 133 mm[Hg] Janette Miller APRN-PROFESSIONAL PROGRAMMER ANALYST Work Phone: [employer] Comment on above: Auto 02-05-2024 14:13-0400 Body height 177.8 cm Yohan James CNP Work Phone: [facility] Work Phone: 02-05-2024 14:13-0400 Body mass index (BMI) [Ratio] 45.1 kg/m2 Yohan James CNP Work Phone: [facility] Work Phone: 02-05-2024 14:13-0400 Body surface area Derived from formula 2.5 m2 Yohan James CNP Work Phone: [facility] Work Phone: 02-05-2024 14:13-0400 Body temperature 97.9 [degF] Yohan James CNP Work Phone: [facility] Work Phone: 02-05-2024 14:13-0400 Body weight 142.61 kg Yohan Stewarter PROFESSIONAL PROGRAMMER ANALYST Work Phone: [facility] Work Phone: 02-05-2024 14:13-0400 Diastolic blood pressure 73 mm[Hg] Yohan Blanca PROFESSIONAL PROGRAMMER ANALYST Work Phone: [facility] Work Phone: 02-05-2024 14:13-0400 Heart rate 92 /min Yohan James CNP Work Phone: [facility] Work Phone: 02-05-2024 14:13-0400 SaO2% (BldA) [Mass fraction] 95 % Yohan James CNP Work Phone: [facility] Work Phone: 02-05-2024 14:13-0400 Systolic blood pressure 105 mm[Hg] Yohan James CNP Work Phone: [facility] Work Phone: 09-07-2023 09:16-0500 Body height 177.8 cm Yohan James CNP Work Phone: [facility] Work Phone: 09-07-2023 09:16-0500 Body mass index (BMI) [Ratio] 46.1 kg/m2 Yohan James CNP Work Phone: [facility] Work Phone: 09-07-2023 09:16-0500 Body surface area Derived from formula 2.6 m2 Yohan James CNP Work Phone: [facility] Work Phone: 09-07-2023 09:16-0500 Body temperature 98.4 [degF] Yohan James CNP Work Phone: [facility] Work Phone: 09-07-2023 09:16-0500 Body weight 145.88 kg Yohan James CNP Work Phone: [facility] Work Phone: 09-07-2023 09:16-0500 Diastolic blood pressure 84 mm[Hg] Yohan James CNP Work Phone: [facility] Work Phone: 09-07-2023 09:16-0500 Heart rate 75 /min Yohan James CNP Work Phone: [facility] Work Phone: 09-07-2023 09:16-0500 SaO2% (BldA) [Mass fraction] 97 % Yohan James CNP Work Phone: [facility] Work Phone: 09-07-2023 09:16-0500 Systolic blood pressure 122 mm[Hg] Yohan James CNP Work Phone: [facility] Work Phone: 07-24-2023 18:45-0500 Body height 177.8 cm Yohan James CNP Work Phone: [facility] Work Phone: 07-24-2023 18:45-0500 Body mass index (BMI) [Ratio] 46.8 kg/m2 Yohan James CNP Work Phone: [facility] Work Phone: 07-24-2023 18:45-0500 Body surface area Derived from formula 2.6 m2 Yohan James CNP Work Phone: [facility] Work Phone: 07-24-2023 18:45-0500 Body temperature 97.5 [degF] Yohan James CNP Work Phone: [facility] Work Phone: 07-24-2023 18:45-0500 Body weight 147.87 kg Yohan James CNP Work Phone: [facility] Work Phone: 07-24-2023 18:45-0500 Diastolic blood pressure 77 mm[Hg] Yohan James CNP Work Phone: [facility] Work Phone: 07-24-2023 18:45-0500 Heart rate 70 /min Yohan James CNP Work Phone: [facility] Work Phone: 07-24-2023 18:45-0500 SaO2% (BldA) [Mass fraction] 96 % Yohan James CNP Work Phone: [facility] Work Phone: 07-24-2023 18:45-0500 Systolic blood pressure 117 mm[Hg] Yohan James CNP Work Phone: [facility] Work Phone: 06-24-2023 16:15-0500 Body height 177.8 cm Yohan James CNP Work Phone: [facility] Work Phone: 06-24-2023 16:15-0500 Body mass index (BMI) [Ratio] 48.3 kg/m2 Yohan James CNP Work Phone: [facility] Work Phone: 06-24-2023 16:15-0500 Body surface area Derived from formula 2.6 m2 Yohan James CNP Work Phone: [facility] Work Phone: 06-24-2023 16:15-0500 Body weight 152.59 kg Yohan James CNP Work Phone: [facility] Work Phone: 06-24-2023 16:15-0500 Diastolic blood pressure 83 mm[Hg] Yohan James CNP Work Phone: [facility] Work Phone: 06-24-2023 16:15-0500 Heart rate 68 /min Yohan James CNP Work Phone: [facility] Work Phone: 06-24-2023 16:15-0500 SaO2% (BldA) [Mass fraction] 95 % Yohan Blanca PROFESSIONAL PROGRAMMER ANALYST Work Phone: [facility] Work Phone: 06-24-2023 16:15-0500 Systolic blood pressure 132 mm[Hg] Yohan Blanca PROFESSIONAL PROGRAMMER ANALYST Work Phone: [facility] Work Phone: 06-21-2023 23:47-0500 Diastolic blood pressure 78 mm[Hg] Garcia Peace MD Work Phone: [employer] 06-21-2023 23:47-0500 Heart rate 86 /min Garcia Peace MD Work Phone: [employer] 06-21-2023 23:47-0500 Respiratory rate 16 /min Garcia Peace MD Work Phone: [employer] 06-21-2023 23:47-0500 SaO2% (BldA) [Mass fraction] 97 % Garcia Peace MD Work Phone: [employer] 06-21-2023 23:47-0500 Systolic blood pressure 135 mm[Hg] Garcia Peace MD Work Phone: [employer] 06-21-2023 18:47-0500 Body height 175.3 cm Garcia Peace MD Work Phone: [employer] 06-21-2023 18:47-0500 Body mass index (BMI) [Ratio] 51.69 kg/m2 Garcia Peace MD Work Phone: [employer] 06-21-2023 18:47-0500 Body temperature 97.9 [degF] Garcia Peace MD Work Phone: [employer] 06-21-2023 18:47-0500 Body weight 158.76 kg Garcia Peace MD Work Phone: [employer] 01-21-2023 23:06-0400 Body height 175.3 cm Elfego Andes DO Work Phone: [facility] [email or web address] 01-21-2023 23:06-0400 Body mass index (BMI) [Ratio] 50.65 kg/m2 Elfego Andes DO Work Phone: [facility] [email or web address] 01-21-2023 23:06-0400 Body temperature 98.01 [degF] Elfego Andes DO Work Phone: [facility] [email or web address] 01-21-2023 23:06-0400 Body weight 155.58 kg Elfego Andes DO Work Phone: [facility] [email or web address] 01-21-2023 23:06-0400 Diastolic blood pressure 55 mm[Hg] Elfego Andes DO Work Phone: [facility] [email or web address] 01-21-2023 23:06-0400 Heart rate 79 /min Elfego Andes DO Work Phone: [facility] [email or web address] 01-21-2023 23:06-0400 Respiratory rate 18 /min Elfego Andes DO Work Phone: [facility] [email or web address] 01-21-2023 23:06-0400 SaO2% (BldA) [Mass fraction] 94 % Elfego Andes DO Work Phone: [facility] [email or web address] 01-21-2023 23:06-0400 Systolic blood pressure 118 mm[Hg] Elfego Andes DO Work Phone: [facility] [email or web address] 12-26-2022 11:54-0400 Body height 177.8 cm Yohan James CNP Work Phone: [facility] Work Phone: 12-26-2022 11:54-0400 Body mass index (BMI) [Ratio] 49.5 kg/m2 Yohan James CNP Work Phone: [facility] Work Phone: 12-26-2022 11:54-0400 Body surface area Derived from formula 2.6 m2 Yohan James CNP Work Phone: [facility] Work Phone: 12-26-2022 11:54-0400 Body temperature 97.5 [degF] Yohan James CNP Work Phone: [facility] Work Phone: 12-26-2022 11:54-0400 Body weight 156.36 kg Yohan James CNP Work Phone: [facility] Work Phone: 12-26-2022 11:54-0400 Diastolic blood pressure 74 mm[Hg] Yohan James CNP Work Phone: [facility] Work Phone: 12-26-2022 11:54-0400 Heart rate 70 /min Yohan James CNP Work Phone: [facility] Work Phone: 12-26-2022 11:54-0400 Heart Rate Rhythm 1 1 Yohan James CNP Work Phone: [facility] Work Phone: 12-26-2022 11:54-0400 SaO2% (BldA) [Mass fraction] 96 % Yohan James CNP Work Phone: [facility] Work Phone: 12-26-2022 11:54-0400 Systolic blood pressure 115 mm[Hg] Yohan James CNP Work Phone: [facility] Work Phone: 10-17-2022 12:57-0400 Diastolic blood pressure 62 mm[Hg] Garcia Peace MD Work Phone: [facility] 10-17-2022 12:57-0400 Heart rate 74 /min Garcia Peace MD Work Phone: [employer] 10-17-2022 12:57-0400 Respiratory rate 24 /min Garcia Peace MD Work Phone: [employer] 10-17-2022 12:57-0400 SaO2% (BldA) [Mass fraction] 93 % Garcia Peace MD Work Phone: [employer] 10-17-2022 12:57-0400 Systolic blood pressure 123 mm[Hg] Garcia Peace MD Work Phone: [employer] 10-17-2022 11:07-0400 Body temperature 98.01 [degF] Garcia Peace MD Work Phone: [employer] 10-17-2022 11:05-0400 Body height 175.3 cm Garcia Peace MD Work Phone: [employer] 10-17-2022 11:05-0400 Body mass index (BMI) [Ratio] 51.39 kg/m2 Garcia Peace MD Work Phone: [employer] 10-17-2022 11:05-0400 Body weight 157.85 kg Garcia Peace MD Work Phone: [employer] 10-08-2022 14:35-0400 Body height 177.8 cm Yohan James CNP Work Phone: [facility] Work Phone: 10-08-2022 14:35-0400 Body mass index (BMI) [Ratio] 49.5 kg/m2 Yohan James CNP Work Phone: [facility] Work Phone: 10-08-2022 14:35-0400 Body surface area Derived from formula 2.6 m2 Yohan James CNP Work Phone: [facility] Work Phone: 10-08-2022 14:35-0400 Body temperature 98.8 [degF] Yohan James CNP Work Phone: [facility] Work Phone: 10-08-2022 14:35-0400 Body weight 156.49 kg Yohan James CNP Work Phone: [facility] Work Phone: 10-08-2022 14:35-0400 Diastolic blood pressure 75 mm[Hg] Yohan James CNP Work Phone: [facility] Work Phone: 10-08-2022 14:35-0400 Heart rate 83 /min Yohan James CNP Work Phone: [facility] Work Phone: 10-08-2022 14:35-0400 SaO2% (BldA) [Mass fraction] 97 % Yohan James CNP Work Phone: [facility] Work Phone: 10-08-2022 14:35-0400 Systolic blood pressure 131 mm[Hg] Yohan James CNP Work Phone: [facility] Work Phone: 09-02-2022 13:49-0500 Body height 177.8 cm Yohan James CNP Work Phone: [facility] Work Phone: 09-02-2022 13:49-0500 Body mass index (BMI) [Ratio] 49.2 kg/m2 Yohan James CNP Work Phone: [facility] Work Phone: 09-02-2022 13:49-0500 Body surface area Derived from formula 2.6 m2 Yohan James CNP Work Phone: [facility] Work Phone: 09-02-2022 13:49-0500 Body weight 155.58 kg Yohan James CNP Work Phone: [facility] Work Phone: 09-02-2022 13:49-0500 Diastolic blood pressure 74 mm[Hg] Yohan Stewarter PROFESSIONAL PROGRAMMER ANALYST Work Phone: [facility] Work Phone: 09-02-2022 13:49-0500 Heart rate 81 /min Yohan James PROFESSIONAL PROGRAMMER ANALYST Work Phone: [facility] Work Phone: 09-02-2022 13:49-0500 SaO2% (BldA) [Mass fraction] 99 % Yohan James PROFESSIONAL PROGRAMMER ANALYST Work Phone: [facility] Work Phone: 09-02-2022 13:49-0500 Systolic blood pressure 131 mm[Hg] Yohan Stewarter PROFESSIONAL PROGRAMMER ANALYST Work Phone: [facility] Work Phone: 07-30-2022 16:12-0500 Diastolic blood pressure 89 mm[Hg] Yohan Stewarter PROFESSIONAL PROGRAMMER ANALYST Work Phone: [facility] Work Phone: 07-30-2022 16:12-0500 Heart Rate Rhythm 1 1 Yohan James PROFESSIONAL PROGRAMMER ANALYST Work Phone: [facility] Work Phone: 07-30-2022 16:12-0500 Systolic blood pressure 137 mm[Hg] Yohan Blanca PROFESSIONAL PROGRAMMER ANALYST Work Phone: [facility] Work Phone: 07-30-2022 15:29-0500 Diastolic blood pressure 90 mm[Hg] Yohan Blanca PROFESSIONAL PROGRAMMER ANALYST Work Phone: [facility] Work Phone: 07-30-2022 15:29-0500 Heart Rate Rhythm 1 1 Yohan James CNP Work Phone: [facility] Work Phone: 07-30-2022 15:29-0500 Systolic blood pressure 142 mm[Hg] Yohan James CNP Work Phone: [facility] Work Phone: 07-30-2022 14:46-0500 Body height 177.8 cm Yohan James CNP Work Phone: [facility] Work Phone: 07-30-2022 14:46-0500 Body mass index (BMI) [Ratio] 48.6 kg/m2 Yohan James CNP Work Phone: [facility] Work Phone: 07-30-2022 14:46-0500 Body surface area Derived from formula 2.6 m2 Yohan James CNP Work Phone: [facility] Work Phone: 07-30-2022 14:46-0500 Body temperature 97.2 [degF] Yohan James CNP Work Phone: [facility] Work Phone: 07-30-2022 14:46-0500 Body weight 153.59 kg Yohan James CNP Work Phone: [facility] Work Phone: 07-30-2022 14:46-0500 Diastolic blood pressure 99 mm[Hg] Yohan James CNP Work Phone: [facility] Work Phone: 07-30-2022 14:46-0500 Heart rate 86 /min Yohan James CNP Work Phone: [facility] Work Phone: 07-30-2022 14:46-0500 Heart Rate Rhythm 1 1 Yohan James CNP Work Phone: [facility] Work Phone: 07-30-2022 14:46-0500 SaO2% (BldA) [Mass fraction] 99 % Yohan James PROFESSIONAL PROGRAMMER ANALYST Work Phone: [facility] Work Phone: 07-30-2022 14:46-0500 Systolic blood pressure 147 mm[Hg] Yohan James PROFESSIONAL PROGRAMMER ANALYST Work Phone: [facility] Work Phone: 07-21-2022 22:15-0500 Diastolic blood pressure 53 mm[Hg] Jarvis Rojas MD [employer] 07-21-2022 22:15-0500 Heart rate 87 /min Jarvis Rojas MD [employer] 07-21-2022 22:15-0500 Respiratory rate 27 /min Jarvis Rojas MD [facility] [employer] 07-21-2022 22:15-0500 SaO2% (BldA) [Mass fraction] 96 % Jarvis Rojas MD [employer] 07-21-2022 22:15-0500 Systolic blood pressure 120 mm[Hg] Jarvis Rojas MD [facility] [email or web address] 07-21-2022 19:46-0500 Body temperature 98.01 [degF] Jarvis Rojas MD [facility] [employer] 07-14-2022 13:00-0500 Diastolic blood pressure 97 mm[Hg] Rachel Belcher DO Work Phone: [employer] 07-14-2022 13:00-0500 SaO2% (BldA) [Mass fraction] 91 % Rachel Belcher DO Work Phone: [employer] 07-14-2022 13:00-0500 Systolic blood pressure 171 mm[Hg] Rachel Belcher DO Work Phone: [employer] 07-14-2022 10:31-0500 Body temperature 97.5 [degF] Rachel Belcher DO Work Phone: [facility] [email or web address] 07-14-2022 10:28-0500 Body height 175.3 cm Rachel Belcher DO Work Phone: [facility] [email or web address] 07-14-2022 10:28-0500 Body mass index (BMI) [Ratio] 48.73 kg/m2 Rachel Belcher DO Work Phone: [facility] [email or web address] 07-14-2022 10:28-0500 Body weight 149.69 kg Rachel Belcher DO Work Phone: [facility] [email or web address] 07-14-2022 10:28-0500 Heart rate 97 /min Rachel Belcher DO Work Phone: [facility] [email or web address] 07-14-2022 10:28-0500 Respiratory rate 20 /min Rachel Belcher DO Work Phone: [facility] [email or web address] 07-06-2022 13:54-0500 Body height 175.3 cm Yohan Blanca STRATIGRAPHER - BANK APPRAISER Work Phone: [facility] [email or web address] 07-06-2022 13:54-0500 Body mass index (BMI) [Ratio] 48.73 kg/m2 Yohan Blanca STRATIGRAPHER - B[employer] AP[employer]ER Work Phone: [facility] [email or web address] 07-06-2022 13:54-0500 Body temperature 97.39 [degF] Yohan Blanca STRATIGRAPHER - B[employer] AP[employer]ER Work Phone: [facility] [email or web address] 07-06-2022 13:54-0500 Body weight 149.69 kg Yohan Blanca STRATIGRAPHER - B[employer] Work Phone: [facility] [email or web address] 07-06-2022 13:54-0500 Diastolic blood pressure 84 mm[Hg] Yohan Blanca STRATIGRAPHER - B[employer] AP[employer]ER Work Phone: [facility] [email or web address] 07-06-2022 13:54-0500 Heart rate 94 /min Yohan Blanca STRATIGRAPHER - B[employer] AP[employer] Work Phone: [employer] 07-06-2022 13:54-0500 Respiratory rate 18 /min Yohan Stewarter STRATIGRAPHER - BANK APPRAISER Work Phone: [facility] [email or web address] 07-06-2022 13:54-0500 SaO2% (BldA) [Mass fraction] 97 % Yohan Blanca STRATIGRAPHER - B[employer] AP[employer] Work Phone: [facility] [email or web address] 07-06-2022 13:54-0500 Systolic blood pressure 128 mm[Hg] Yohan Blanca STRATIGRAPHER - B[employer]ER Work Phone: [facility] [email or web address] 06-12-2022 14:37-0500 Body temperature 98.8 [degF] Yhoan Blanca STRATIGRAPHER - BANK APPRA[employer]ER Work Phone: [facility] [email or web address] 06-12-2022 14:37-0500 Diastolic blood pressure 70 mm[Hg] Yohan Blanca STRATIGRAPHER - B[employer] AP[employer] Work Phone: [facility] [email or web address] 06-12-2022 14:37-0500 Heart rate 65 /min Yohan Blanca STRATIGRAPHER - B[employer] APPRAISER Work Phone: [facility] [email or web address] 06-12-2022 14:37-0500 Respiratory rate 16 /min Yohan Blanca STRATIGRAPHER - BANK APPRAISER Work Phone: [facility] [email or web address] 06-12-2022 14:37-0500 SaO2% (BldA) [Mass fraction] 97 % Yohan Blanca STRATIGRAPHER - B[employer] AP[employer] Work Phone: [facility] [email or web address] 06-12-2022 14:37-0500 Systolic blood pressure 123 mm[Hg] Yohan Blanca STRATIGRAPHER - B[employer] APPRAISER Work Phone: [facility] [email or web address] 05-01-2022 15:11-0400 Body temperature 96.8 [degF] Yohan Blanca STRATIGRAPHER - B[employer] AP[employer]ER Work Phone: [facility] [email or web address] 05-01-2022 15:11-0400 Diastolic blood pressure 79 mm[Hg] Yohan Blanca STRATIGRAPHER - BANK APPRAISER Work Phone: [facility] 05-01-2022 15:11-0400 Heart rate 68 /min Yohan Stewarter STRATIGRAPHER - BANK APPRAISER Work Phone: [facility] 05-01-2022 15:11-0400 Respiratory rate 20 /min Yohan Stewarter STRATIGRAPHER - BANK APPRAISER Work Phone: [facility] 05-01-2022 15:11-0400 SaO2% (BldA) [Mass fraction] 97 % Yohan Stewarter STRATIGRAPHER - BANK APPRAISER Work Phone: [facility] 05-01-2022 15:11-0400 Systolic blood pressure 127 mm[Hg] Yohan Stewarter STRATIGRAPHER - BANK APPRAISER Work Phone: [facility] 03-07-2022 08:47-0400 Body height 175.3 cm Yudi Reyes MD Work Phone: [facility] 03-07-2022 08:47-0400 Body mass index (BMI) [Ratio] 49.91 kg/m2 Yudi Reyes MD Work Phone: [facility] 03-07-2022 08:47-0400 Body temperature 97.2 [degF] Yudi Reyes MD Work Phone: [facility] 03-07-2022 08:47-0400 Body weight 153.32 kg Yudi Reyes MD Work Phone: [facility] 03-07-2022 08:47-0400 Heart rate 69 /min Yudi Reyes MD Work Phone: [facility] 03-07-2022 08:47-0400 SaO2% (BldA) [Mass fraction] 99 % Yudi Reyes MD Work Phone: [facility] 03-04-2022 17:01-0400 Body height 177.8 cm Yohan James CNP Work Phone: [facility] Work Phone: 03-04-2022 17:01-0400 Body mass index (BMI) [Ratio] 47.6 kg/m2 Yohan James CNP Work Phone: [facility] Work Phone: 03-04-2022 17:01-0400 Body surface area Derived from formula 2.59 m2 Yohanalejandra James CNP Work Phone: [facility] Work Phone: 03-04-2022 17:01-0400 Body surface area Derived from formula 2.6 m2 Yohanalejandra James CNP Work Phone: [facility] Work Phone: 03-04-2022 17:01-0400 Body temperature 96 [degF] Yohan James CNP Work Phone: [facility] Work Phone: 03-04-2022 17:01-0400 Body weight 150.6 kg oYhan James CNP Work Phone: [facility] Work Phone: 03-04-2022 17:01-0400 Diastolic blood pressure 80 mm[Hg] Yohan James CNP Work Phone: [facility] Work Phone: 03-04-2022 17:01-0400 Heart rate 79 /min Yohan James CNP Work Phone: [facility] Work Phone: 03-04-2022 17:01-0400 SaO2% (BldA) [Mass fraction] 99 % Yohan James CNP Work Phone: [facility] Work Phone: 03-04-2022 17:01-0400 Systolic blood pressure 130 mm[Hg] Yohan Blanca PROFESSIONAL PROGRAMMER ANALYST Work Phone: [facility] Work Phone: 02-12-2022 15:40-0400 Body height 175.3 cm Main [facility] [place] Work Phone: [facility] 02-12-2022 15:40-0400 Body mass index (BMI) [Ratio] 49.32 kg/m2 [facility] [place] Work Phone: [facility] 02-12-2022 15:40-0400 Body weight 151.5 kg Main [facility] [place] Work Phone: [facility] 11-22-2021 16:51-0400 Body height 177.8 cm Yohan Stewarter PROFESSIONAL PROGRAMMER ANALYST Work Phone: [facility] Work Phone: 11-22-2021 16:51-0400 Body mass index (BMI) [Ratio] 49.4 kg/m2 Yohan Stewarter PROFESSIONAL PROGRAMMER ANALYST Work Phone: [facility] Work Phone: 11-22-2021 16:51-0400 Body surface area Derived from formula 2.63 m2 Yohan Stewarter PROFESSIONAL PROGRAMMER ANALYST Work Phone: [facility] Work Phone: 11-22-2021 16:51-0400 Body surface area Derived from formula 2.6 m2 Yohan Blanca PROFESSIONAL PROGRAMMER ANALYST Work Phone: [facility] Work Phone: 11-22-2021 16:51-0400 Body temperature 98.3 [degF] Yohan Blanca PROFESSIONAL PROGRAMMER ANALYST Work Phone: [facility] Work Phone: 11-22-2021 16:51-0400 Body weight 156.04 kg Yohan Blanca PROFESSIONAL PROGRAMMER ANALYST Work Phone: [facility] Work Phone: 11-22-2021 16:51-0400 Diastolic blood pressure 86 mm[Hg] Yohan Stewarter PROFESSIONAL PROGRAMMER ANALYST Work Phone: [facility] Work Phone: 11-22-2021 16:51-0400 Heart rate 68 /min Yohan James PROFESSIONAL PROGRAMMER ANALYST Work Phone: [facility] Work Phone: 11-22-2021 16:51-0400 SaO2% (BldA) [Mass fraction] 97 % Yohan Blanca PROFESSIONAL PROGRAMMER ANALYST Work Phone: [facility] Work Phone: 11-22-2021 16:51-0400 Systolic blood pressure 138 mm[Hg] Yohan Blanca PROFESSIONAL PROGRAMMER ANALYST Work Phone: [facility] Work Phone: 11-12-2021 02:14-0400 Body temperature 97.11 [degF] Azael Cisneros MD Work Phone: [email or web address] 11-12-2021 02:14-0400 Diastolic blood pressure 105 mm[Hg] Azael Cisneros MD Work Phone: [email or web address] 11-12-2021 02:14-0400 Systolic blood pressure 161 mm[Hg] Azael Cisneros MD Work Phone: [email or web address] 11-12-2021 02:13-0400 Heart rate 94 /min Azael Cisneros MD Work Phone: [email or web address] 11-12-2021 02:13-0400 SaO2% (BldA) [Mass fraction] 97 % Azael Cisneros MD Work Phone: [email or web address] 08-12-2021 11:25-0500 Diastolic blood pressure 86 mm[Hg] Yohan Blanca PROFESSIONAL PROGRAMMER ANALYST Work Phone: [facility] Work Phone: 08-12-2021 11:25-0500 Systolic blood pressure 136 mm[Hg] Yohan James CNP Work Phone: [facility] Work Phone: 08-12-2021 10:56-0500 Body height 177.8 cm Yohan James CNP Work Phone: [facility] Work Phone: 08-12-2021 10:56-0500 Body mass index (BMI) [Ratio] 48.1 kg/m2 Yohan James CNP Work Phone: [facility] Work Phone: 08-12-2021 10:56-0500 Body surface area Derived from formula 2.6 m2 Yohan James CNP Work Phone: [facility] Work Phone: 08-12-2021 10:56-0500 Body temperature 96.7 [degF] Yohan James CNP Work Phone: [facility] Work Phone: 08-12-2021 10:56-0500 Body weight 151.96 kg Yohan James CNP Work Phone: [facility] Work Phone: 08-12-2021 10:56-0500 Diastolic blood pressure 90 mm[Hg] Yohan James CNP Work Phone: [facility] Work Phone: 08-12-2021 10:56-0500 Heart rate 76 /min Yohan James CNP Work Phone: [facility] Work Phone: 08-12-2021 10:56-0500 Respiratory rate 18 /min Yohan James CNP Work Phone: [facility] Work Phone: 08-12-2021 10:56-0500 SaO2% (BldA) [Mass fraction] 98 % Yohan James CNP Work Phone: [facility] Work Phone: 08-12-2021 10:56-0500 Systolic blood pressure 134 mm[Hg] Yohan James CNP Work Phone: [facility] Work Phone: 08-05-2021 11:33-0500 Body height 177.8 cm Yohan James CNP Work Phone: [facility] Work Phone: 08-05-2021 11:33-0500 Body mass index (BMI) [Ratio] 47.8 kg/m2 Yohan James CNP Work Phone: [facility] Work Phone: 08-05-2021 11:33-0500 Body surface area Derived from formula 2.59 m2 Yohan James CNP Work Phone: [facility] Work Phone: 08-05-2021 11:33-0500 Body surface area Derived from formula 2.6 m2 Yohan James CNP Work Phone: [facility] 08-05-2021 11:33-0500 Body temperature 97.9 [degF] Yohan James CNP Work Phone: [facility] Work Phone: 08-05-2021 11:33-0500 Body weight 151.05 kg Yoahn James CNP Work Phone: [facility] Work Phone: 08-05-2021 11:33-0500 Diastolic blood pressure 80 mm[Hg] Yohan James CNP Work Phone: [facility] Work Phone: 08-05-2021 11:33-0500 Heart rate 64 /min Yohan James CNP Work Phone: [facility] Work Phone: 08-05-2021 11:33-0500 Respiratory rate 20 /min Yohan James CNP Work Phone: [facility] Work Phone: 08-05-2021 11:33-0500 SaO2% (BldA) [Mass fraction] 99 % Yohan James CNP Work Phone: [facility] Work Phone: 08-05-2021 11:33-0500 Systolic blood pressure 146 mm[Hg] Yohan James CNP Work Phone: [facility] Work Phone: 08-04-2021 00:13-0500 Body height 175.3 cm Michelle Elder MD Work Phone: [email or web address] 08-04-2021 00:13-0500 Body mass index (BMI) [Ratio] 49.62 kg/m2 Michelle Elder MD Work Phone: [email or web address] 08-04-2021 00:13-0500 Body weight 152.41 kg Michelle Elder MD Work Phone: [email or web address] 08-04-2021 00:13-0500 Diastolic blood pressure 88 mm[Hg] Michelle Elder MD Work Phone: [email or web address] 08-04-2021 00:13-0500 Heart rate 85 /min Michelle Elder MD Work Phone: [email or web address] 08-04-2021 00:13-0500 Respiratory rate 20 /min Michelle Elder MD Work Phone: [email or web address] 08-04-2021 00:13-0500 SaO2% (BldA) [Mass fraction] 99 % Michelle Elder MD Work Phone: [facility] [employer] 08-04-2021 00:13-0500 Systolic blood pressure 153 mm[Hg] Michelle Elder MD Work Phone: [facility] [employer] 08-01-2021 16:35-0500 Body height 172.72 cm [employer] 08-01-2021 16:35-0500 Body mass index (BMI) [Ratio] 50.94 kg/m2 [employer] 08-01-2021 16:35-0500 Body surface area Derived from formula 2.7 m2 [employer] 08-01-2021 16:35-0500 Body weight 151.96 kg [employer] 08-01-2021 16:35-0500 Diastolic blood pressure 76 mm[Hg] [employer] 08-01-2021 16:35-0500 Heart rate 72 /min [employer] 08-01-2021 16:35-0500 Systolic blood pressure 130 mm[Hg] [employer] 04-10-2021 15:47-0400 Body height 177.8 cm Yohan James CNP Work Phone: [facility] Work Phone: 04-10-2021 15:47-0400 Body mass index (BMI) [Ratio] 47.9 kg/m2 Yohan James CNP Work Phone: [facility] Work Phone: 04-10-2021 15:47-0400 Body surface area Derived from formula 2.59 m2 Yohan James CNP Work Phone: [facility] Work Phone: 04-10-2021 15:47-0400 Body temperature 95.8 [degF] Yohan James PROFESSIONAL PROGRAMMER ANALYST Work Phone: [facility] Work Phone: 04-10-2021 15:47-0400 Body weight 151.41 kg Yohan James PROFESSIONAL PROGRAMMER ANALYST Work Phone: [facility] Work Phone: 04-10-2021 15:47-0400 Diastolic blood pressure 78 mm[Hg] Yohan James PROFESSIONAL PROGRAMMER ANALYST Work Phone: [facility] Work Phone: 04-10-2021 15:47-0400 Heart rate 81 /min Yohan James CNP Work Phone: [facility] Work Phone: 04-10-2021 15:47-0400 SaO2% (BldA) [Mass fraction] 96 % Yohan James CNP Work Phone: [facility] Work Phone: 04-10-2021 15:47-0400 Systolic blood pressure 130 mm[Hg] Yohan James PROFESSIONAL PROGRAMMER ANALYST Work Phone: [facility] Work Phone: 04-08-2021 11:13-0400 Body temperature 96.91 [degF] Yohan Blanca STRATIGRAPHER - [employer] Work Phone: [email or web address] Work Phone: 04-08-2021 11:13-0400 Diastolic blood pressure 75 mm[Hg] Yohan Blanca STRATIGRAPHER - [employer] Work Phone: [email or web address] Work Phone: 04-08-2021 11:13-0400 Heart rate 66 /min Yohan James STRATIGRAPHER - [employer] Work Phone: [email or web address] Work Phone: 04-08-2021 11:13-0400 Respiratory rate 20 /min Yohan James STRATIGRAPHER - [employer] Work Phone: [email or web address] Work Phone: 04-08-2021 11:13-0400 SaO2% (BldA) [Mass fraction] 99 % Yohan James STRATIGRAPHER - [employer] Work Phone: [email or web address] Work Phone: 04-08-2021 11:13-0400 Systolic blood pressure 130 mm[Hg] Yohan James STRATIGRAPHER - B[employer] Work Phone: [email or web address] Work Phone: 03-27-2021 15:26-0400 Body height 177.8 cm Yohan James CNP Work Phone: [employer] [facility] Work Phone: 03-27-2021 15:26-0400 Body mass index (BMI) [Ratio] 48.7 kg/m2 Yohan James CNP Work Phone: [facility] Work Phone: 03-27-2021 15:26-0400 Body surface area Derived from formula 2.61 m2 Yohan James CNP Work Phone: [facility] Work Phone: 03-27-2021 15:26-0400 Body temperature 97.7 [degF] Yohan James CNP Work Phone: [facility] Work Phone: 03-27-2021 15:26-0400 Body weight 153.95 kg Yohan James CNP Work Phone: [facility] Work Phone: 03-27-2021 15:26-0400 Diastolic blood pressure 88 mm[Hg] Yohan James CNP Work Phone: [facility] Work Phone: 03-27-2021 15:26-0400 Heart rate 84 /min Yohan James CNP Work Phone: [facility] Work Phone: 03-27-2021 15:26-0400 SaO2% (BldA) [Mass fraction] 97.8 % Yohan James CNP Work Phone: [facility] Work Phone: 03-27-2021 15:26-0400 Systolic blood pressure 148 mm[Hg] Yohan James CNP Work Phone: [facility] Work Phone: 03-25-2021 15:14-0400 Body mass index (BMI) [Ratio] 48.64 kg/m2 Joseph Gallo MD Work Phone: [email or web address] Work Phone: 03-25-2021 15:14-0400 Body temperature 98.6 [degF] Joseph Gallo MD Work Phone: [email or web address] Work Phone: 03-25-2021 15:14-0400 Body weight 153.77 kg Joseph Gallo MD Work Phone: [email or web address] Work Phone: 03-25-2021 15:14-0400 Diastolic blood pressure 85 mm[Hg] Joseph Gallo MD Work Phone: [email or web address] Work Phone: 03-25-2021 15:14-0400 Heart rate 69 /min Joseph Gallo MD Work Phone: [email or web address] Work Phone: 03-25-2021 15:14-0400 Respiratory rate 16 /min Joseph Gallo MD Work Phone: [email or web address] Work Phone: 03-25-2021 15:14-0400 SaO2% (BldA) [Mass fraction] 100 % Joseph Gallo MD Work Phone: [email or web address] Work Phone: 03-25-2021 15:14-0400 Systolic blood pressure 141 mm[Hg] Joseph Gallo MD Work Phone: [email or web address] Work Phone: 02-25-2021 16:45-0400 Body height 177.8 cm Joseph Gallo MD Work Phone: [email or web address] Work Phone: 02-25-2021 16:45-0400 Body mass index (BMI) [Ratio] 45.92 kg/m2 Joseph Gallo MD Work Phone: [email or web address] Work Phone: 02-25-2021 16:45-0400 Body temperature 96.4 [degF] Joseph Gallo MD Work Phone: [email or web address] Work Phone: 02-25-2021 16:45-0400 Body weight 145.15 kg Joseph Gallo MD Work Phone: [email or web address] Work Phone: 02-25-2021 16:45-0400 Diastolic blood pressure 98 mm[Hg] Joseph Gallo MD Work Phone: [email or web address] Work Phone: 02-25-2021 16:45-0400 Heart rate 74 /min Joseph Gallo MD Work Phone: [email or web address] Work Phone: 02-25-2021 16:45-0400 Respiratory rate 18 /min Joseph Gallo MD Work Phone: [email or web address] Work Phone: 02-25-2021 16:45-0400 SaO2% (BldA) [Mass fraction] 100 % Joseph Gallo MD Work Phone: [email or web address] Work Phone: 02-25-2021 16:45-0400 Systolic blood pressure 137 mm[Hg] Joseph Gallo MD Work Phone: [email or web address] Work Phone: 01-23-2021 08:45-0400 Diastolic blood pressure 63 mm[Hg] Leonard Randall MD Work Phone: [email or web address] Work Phone: 01-23-2021 08:45-0400 Heart rate 70 /min Leonard Randall MD Work Phone: [email or web address] Work Phone: 01-23-2021 08:45-0400 Respiratory rate 16 /min Leonard Randall MD Work Phone: [email or web address] Work Phone: 01-23-2021 08:45-0400 SaO2% (BldA) [Mass fraction] 96 % Leonard Randall MD Work Phone: [email or web address] Work Phone: 01-23-2021 08:45-0400 Systolic blood pressure 122 mm[Hg] Leonard Randall MD Work Phone: [email or web address] Work Phone: 01-23-2021 08:08-0400 Body temperature 97 [degF] Leonard Randall MD Work Phone: [email or web address] Work Phone: 01-23-2021 06:24-0400 Body height 170.2 cm Leonard Randall MD Work Phone: [email or web address] Work Phone: 01-23-2021 06:24-0400 Body mass index (BMI) [Ratio] 52.12 kg/m2 Leonard Randall MD Work Phone: [email or web address] Work Phone: 01-23-2021 06:24-0400 Body weight 150.96 kg Leonard Randall MD Work Phone: [email or web address] Work Phone: 01-11-2021 14:00-0400 SaO2% (BldA) [Mass fraction] 97 % Shayan Reyes MD Work Phone: [email or web address] Work Phone: 01-10-2021 23:58-0400 Diastolic blood pressure 58 mm[Hg] Shayan Reyes MD Work Phone: [email or web address] Work Phone: 01-10-2021 23:58-0400 Systolic blood pressure 128 mm[Hg] Shayan Reyes MD Work Phone: [email or web address] Work Phone: 01-10-2021 22:37-0400 Body temperature 97 [degF] Shayan Reyes MD Work Phone: [email or web address] Work Phone: 01-10-2021 22:37-0400 Heart rate 70 /min Shayan Reyes MD Work Phone: [email or web address] Work Phone: 01-10-2021 22:37-0400 Respiratory rate 16 /min Shayan Reyes MD Work Phone: [email or web address] Work Phone: 12-05-2020 12:07-0400 Body height 171.45 cm Estela De La Torre [facility] 12-05-2020 12:07-0400 Body mass index (BMI) [Ratio] 48.92 kg/m2 [employer] 12-05-2020 12:07-0400 Body surface area Derived from formula 2.62 m2 [employer] 12-05-2020 12:07-0400 Body weight 143.79 kg [employer] 12-05-2020 12:07-0400 Diastolic blood pressure 74 mm[Hg] [employer] 12-05-2020 12:07-0400 Heart rate 76 /min [employer] 12-05-2020 12:07-0400 Systolic blood pressure 122 mm[Hg] [employer] 09-25-2020 15:27-0400 BMI (Body Mass Index) 46.5 kg/m2 [facility] Work Phone: 09-25-2020 15:27-0400 Body Temperature 97.2 [degF] [facility] Work Phone: 09-25-2020 15:27-0400 Body weight 146.97 kg [facility] Work Phone: 09-25-2020 15:27-0400 BP Diastolic 80 mm[Hg] [facility] Work Phone: 09-25-2020 15:27-0400 BP Systolic 128 mm[Hg] [facility] Work Phone: 09-25-2020 15:27-0400 BSA (Body Surface Area) 2.56 m2 [facility] Work Phone: 09-25-2020 15:27-0400 Height 177.8 cm Yohan [facility] Work Phone: 09-25-2020 15:27-0400 Pulse (Heart Rate) 95 /min Yohan [facility] Work Phone: 09-25-2020 15:27-0400 Pulse Oximetry 99 % [facility] Work Phone: 09-25-2020 15:27-0400 Respiratory Rate 14 /min [facility] Work Phone: 09-25-2020 15:27-0400 SaO2% (BldA) [Mass fraction] 99 % [facility] Work Phone: [facility] Work Phone: 08-29-2020 09:48-0500 BMI (Body Mass Index) 47.06 kg/m2 [employer] Work Phone: 08-29-2020 09:48-0500 Body Temperature 98.29 [degF] [employer] Work Phone: 08-29-2020 09:48-0500 Body weight 148.78 kg [employer] Phone: 08-29-2020 09:48-0500 BP Diastolic 80 mm[Hg] [employer] Work Phone: 08-29-2020 09:48-0500 BP Systolic 185 mm[Hg] [employer] Work Phone: 08-29-2020 09:48-0500 Pulse (Heart Rate) 98 /min [employer] Work Phone: 08-29-2020 09:48-0500 Pulse Oximetry 99 % [employer] Work Phone: 08-29-2020 09:48-0500 Respiratory Rate 18 /min [employer] Work Phone: 08-28-2020 14:38-0500 BP Diastolic 84 mm[Hg] [facility] Work Phone: 08-28-2020 14:38-0500 BP Systolic 138 mm[Hg] [facility] Work Phone: 08-28-2020 13:46-0500 BMI (Body Mass Index) 47.2 kg/m2 [facility] Work Phone: 08-28-2020 13:46-0500 Body Temperature 97.6 [degF] [facility] Work Phone: 08-28-2020 13:46-0500 Body weight 149.23 kg [facility] Work Phone: 08-28-2020 13:46-0500 BP Diastolic 98 mm[Hg] [facility] Work Phone: 08-28-2020 13:46-0500 BP Systolic 150 mm[Hg] [facility] Work Phone: 08-28-2020 13:46-0500 BSA (Body Surface Area) 2.58 m2 [facility] Work Phone: 08-28-2020 13:46-0500 Height 177.8 cm [facility] Work Phone: 08-28-2020 13:46-0500 Pulse (Heart Rate) 97 /min [facility] Work Phone: 08-28-2020 13:46-0500 Pulse Oximetry 98 % [facility] Work Phone: 08-28-2020 13:46-0500 Respiratory Rate 14 /min [facility] Work Phone: 08-28-2020 13:46-0500 SaO2% (BldA) [Mass fraction] 98 % Yohan [facility] Work Phone: [facility] Work Phone: 07-25-2020 14:41-0500 BMI (Body Mass Index) 45.6 kg/m2 [facility] Work Phone: 07-25-2020 14:41-0500 Body Temperature 97.3 [degF] [facility] Work Phone: 07-25-2020 14:41-0500 Body weight 144.24 kg [facility] Work Phone: 07-25-2020 14:41-0500 BP Diastolic 74 mm[Hg] [facility] Work Phone: 07-25-2020 14:41-0500 BP Systolic 132 mm[Hg] [facility] Work Phone: 07-25-2020 14:41-0500 BSA (Body Surface Area) 2.54 m2 [facility] Work Phone: 07-25-2020 14:41-0500 Height 177.8 cm [facility] Work Phone: 07-25-2020 14:41-0500 Pulse (Heart Rate) 83 /min [facility] Work Phone: 07-25-2020 14:41-0500 Pulse Oximetry 99 % [facility] Work Phone: 07-25-2020 14:41-0500 SaO2% (BldA) [Mass fraction] 99 % Yohan Blanca PROFESSIONAL PROGRAMMER ANALYST Work Phone: [facility] Work Phone: 07-25-2020 14:37-0500 BMI (Body Mass Index) 45.6 kg/m2 [facility] Work Phone: 07-25-2020 14:37-0500 Body weight 144.24 kg [facility] Work Phone: 07-25-2020 14:37-0500 BSA (Body Surface Area) 2.54 m2 [facility] Work Phone: 07-25-2020 14:37-0500 Height 177.8 cm [facility] Work Phone: 07-17-2020 17:50-0500 BP Diastolic 68 mm[Hg] [facility] [place] 07-17-2020 17:50-0500 BP Systolic 117 mm[Hg] [facility] [place] 07-17-2020 17:50-0500 Pulse (Heart Rate) 94 /min [facility] [place] 07-17-2020 17:50-0500 Pulse Oximetry 99 % [facility] [place] 07-17-2020 17:50-0500 Respiratory Rate 17 /min [facility], [place] 07-17-2020 14:59-0500 BMI (Body Mass Index) 45.63 kg/m2 [facility] 07-17-2020 14:59-0500 Body Temperature 97.2 [degF] [facility] [place] 07-17-2020 14:59-0500 Body weight 144.24 kg [facility] [place] 07-09-2020 16:24-0500 BMI (Body Mass Index) 45.34 kg/m2 Joseph Michellemaru [facility], [place] 07-09-2020 16:24-0500 Body Temperature 98.4 [degF] [facility] [place] 07-09-2020 16:24-0500 Body weight 139.25 kg Joseph Michellemaru [facility] [place] 07-09-2020 16:24-0500 BP Diastolic 97 mm[Hg] [facility] [place] [place] 07-09-2020 16:24-0500 BP Systolic 176 mm[Hg] Joseph Gallo [facility] [place] 07-09-2020 16:24-0500 Pulse (Heart Rate) 90 /min Joseph Gallo [facility] [place], [place] 07-09-2020 16:24-0500 Pulse Oximetry 100 % [facility] [place] [place] 07-09-2020 16:24-0500 Respiratory Rate 20 /min Joseph Gallo [facility] [place] 05-15-2020 23:53-0500 BMI (Body Mass Index) 45.78 kg/m2 [facility] Pollo [facility] [place] 05-15-2020 23:53-0500 Body Temperature 98.01 [degF] [facility] [place] 05-15-2020 23:53-0500 Body weight 140.62 kg [facility] [place] 05-15-2020 23:53-0500 BP Diastolic 80 mm[Hg] [facility] [place] 05-15-2020 23:53-0500 BP Systolic 137 mm[Hg] [facility] [place] 05-15-2020 23:53-0500 Height 175.3 cm [facility] , [place] 05-15-2020 23:53-0500 Pulse (Heart Rate) 84 /min [facility] [place] 05-15-2020 23:53-0500 Pulse Oximetry 98 % [facility] [place] 05-15-2020 23:53-0500 Respiratory Rate 16 /min [facility] [place] [facility] [place] 03-20-2020 21:50-0400 Body Temperature 97.7 [degF] [facility] [place] 03-20-2020 21:50-0400 BP Diastolic 77 mm[Hg] [facility] [place] , [place] 03-20-2020 21:50-0400 BP Systolic 177 mm[Hg] Shayan Pollo [facility] , [place] 03-20-2020 21:50-0400 Pulse (Heart Rate) 81 /min Shayan Pollo [facility], [place] 03-20-2020 21:50-0400 Pulse Oximetry 97 % Shayan Green[facility] , [place] 03-20-2020 21:50-0400 Respiratory Rate 14 /min Shayan Reyes [facility] [place] 11-16-2019 10:40-0400 BP Diastolic 60 mm[Hg] Willie [facility] , [place] 11-16-2019 10:40-0400 BP Systolic 128 mm[Hg] [facility] [place] 11-16-2019 10:40-0400 Pulse (Heart Rate) 78 /min [facility] [place] 11-16-2019 10:40-0400 Pulse Oximetry 98 % Willie [facility] , [place] 11-16-2019 10:40-0400 Respiratory Rate 16 /min Willie [facility], [place] 11-16-2019 10:25-0400 Body Temperature 97.39 [degF] Willie [facility] 11-16-2019 07:27-0400 BMI (Body Mass Index) 45.2 kg/m2 Willie [facility], [place] 11-16-2019 07:27-0400 Body weight 142.88 kg Willie [facility] , [place] 11-16-2019 07:27-0400 Height 177.8 cm Willie [facility] , [place] 10-11-2019 13:30-0400 BP Diastolic 76 mm[Hg] [facility] [place] [facility] [place] 10-11-2019 13:30-0400 BP Systolic 141 mm[Hg] [facility] [place] [facility] [place] 10-11-2019 13:30-0400 Pulse (Heart Rate) 74 /min [facility] [place] [place] 10-11-2019 13:30-0400 Respiratory Rate 18 /min [facility] [place] 10-11-2019 11:22-0400 BMI (Body Mass Index) 46.52 kg/m2 Mor Espinoza [employer] [place], [place] 10-11-2019 11:22-0400 Body Temperature 97.11 [degF] Mor Espinoza [employer] [facility] [place] 10-11-2019 11:22-0400 Body weight 142.88 kg Mor Espinoza [facility] [place] , [place] 10-11-2019 11:22-0400 Pulse Oximetry 98 % Mor Espinoza [employer] , [place] 08-22-2019 14:53-0500 Body Temperature 97.39 [degF] Hussein Oscar Work Phone: 08-22-2019 14:53-0500 BP Diastolic 90 mm[Hg] [facility] Phone: 08-22-2019 14:53-0500 BP Systolic 132 mm[Hg] [employer] Work Phone: 08-22-2019 14:53-0500 Pulse (Heart Rate) 75 /min [employer] Work Phone: 08-22-2019 14:53-0500 Pulse Oximetry 98 % [facility] Phone: 08-22-2019 14:53-0500 Respiratory Rate 14 /min [facility] Phone: Encounters Encounter Date Encounter Type Care Provider Facility Start: 09-27-2024 ambulatory [facility] Start: 09-26-2024 End: 09-26-2024 ambulatory JO[facility] Start: 09-14-2024 End: 09-14-2024 Office consultation new/estab patient 60 min Lisa GRAMAJO Work Phone: [facility] Comment on above: Fibromyalgia (Primar y Dx); Encounter for medication counseling; Chronic generalized pain Start: 09-14-2024 End: 09-14-2024 ambulatory LISA W[facility] Start: 09-05-2024 End: 09-05-2024 Orders Only Janette Miller STRATIGRAPHER-PROFESSIONAL PROGRAMMER ANALYST Work Phone: [facility] Comment on above: Chronic generalized pain (Primary Dx) Start: 08-30-2024 End: 08-30-2024 ambulatory [facility] Start: 08-23-2024 End: 08-23-2024 Orders Only Janette Miller STRATIGRAPHER-PROFESSIONAL PROGRAMMER ANALYST Work Phone: [facility] Comment on above: Obesity, morbid, BMI 40.0-49.9 (CMS-HCC) (Primary Dx) Start: 08-18-2024 End: 08-18-2024 ambulatory [facility] Start: 08-15-2024 End: 08-15-2024 ambulatory [facility] Start: 08-10-2024 ambulatory [facility] Start: 08-10-2024 Encounter for other preprocedural examination [facility] Start: 2024 End: 2024 Office outpatient visit 15 minutes Janette Miller STRATIGRAPHER-PROFESSIONAL PROGRAMMER ANALYST Work Phone: [facility] Comment on above: Obesity, morbid, BMI 40.0-49.9 ([facility]-HCC) (Primary Dx) Start: 2024 End: 2024 ambulatory JANETTE MILLER [facility] Start: 07-29-2024 End: 07-29-2024 Orders Only Janette Miller STRATIGRAPHER-PROFESSIONAL PROGRAMMER ANALYST Work Phone: [facility] Start: 07-18-2024 ambulatory [facility] Start: 06-10-2024 End: 06-10-2024 ambulatory [facility] Start: 06-09-2024 End: 06-09-2024 ambulatory JANETTE MILLER [facility] Start: 06-09-2024 End: 06-09-2024 Initial preventive medicine new pt age 18-39yrs Janette Miller STRATIGRAPHER-PROFESSIONAL PROGRAMMER ANALYST Work Phone: [facility] Comment on above: Encounter for medica l examination to establish care (Primary Dx); Healthcare maintenance Start: 06-09-2024 End: 06-09-2024 Patient encounter status Janette Miller STRATIGRAPHER-PROFESSIONAL PROGRAMMER ANALYST Work Phone: [facility] [employer] [facility] Work Phone: Start: 06-09-2024 End: 06-09-2024 ambulatory JANETTE MILLER [facility] Start: 06-09-2024 Encounter for genera l adult medical examination without abnormal findings [facility] Start: 06-09-2024 End: 06-09-2024 ambulatory [facility] Start: 06-08-2024 End: 06-08-2024 ambulatory [facility] Start: 05-30-2024 ambulatory [facility] Start: 05-30-2024 End: 05-30-2024 ambulatory [facility] Start: 05-27-2024 End: 05-29-2024 ambulatory YOHAN Pinon [facility] Start: 05-27-2024 End: 05-29-2024 Subsequent hospital visit by physician Uma Ct Rm [address] [facility] [address] Scan Comment on above: Multiple lung nodule s on CT Start: 03-01-2024 End: 03-02-2024 ambulatory ANGELI CORONEL [facility] Start: 03-01-2024 End: 03-01-2024 Emergency department patient visit YOHAN ZHANG BLANCA [facility] Start: 02-05-2024 End: 02-05-2024 Encounter for preprocedural laboratory examination Yohan James CNP Work Phone: [facility] Work Phone: Start: 02-05-2024 End: 02-05-2024 [facility] visit, estab pt Yaneth Singletary MILK BOTTLING MACHINE OPERATOR Work Phone: [facility] Work Phone: Start: 01-04-2024 End: 01-06-2024 Subsequent hospital visit by physician Mark Mcpherson Dr Room 2 [facility] Radiology Comment on above: Pain Start: 01-04-2024 End: 01-06-[address] [facility] Start: 10-23-2023 End: 10-23-2023 [facility] Start: 10-14-2023 End: 10-14-2023 ambulatory [facility] Start: 10-14-2023 End: 10-14-2023 Encounter for other preprocedural examination [facility] Start: 09-07-2023 End: 09-07-2023 [facility] visit, estab pt Yohan [facility] PROFESSIONAL PROGRAMMER ANALYST Work Phone: [facility] Work Phone: Start: 08-02-2023 End: 08-02-2023 Emergency department patient visit [facility] Start: 07-24-2023 End: 07-24-2023 [facility] visit, estab pt Yaneth Singletary MILK BOTTLING MACHINE OPERATOR Work Phone: [facility] Work Phone: Start: 07-10-2023 End: 07-11-2023 Emergency department patient visit DL BRICE [facility] Start: 06-24-2023 End: 06-24-2023 [facility] visit, estab pt Eufemia HAYES Work Phone: [facility] Work Phone: Start: 06-24-2023 End: 06-24-2023 Encounter for preprocedural laboratory examination Nargis Reynolds PROFESSIONAL PROGRAMMER ANALYST Work Phone: [facility] Work Phone: Start: 06-24-2023 End: 06-24-2023 [facility] visit, estab pt Eufemia HAYES Work Phone: [facility] Work Phone: Start: 06-23-2023 End: 06-25-2023 ambulatory [facility] CROSS [facility] Start: 06-21-2023 End: 06-21-2023 Emergency department patient visit Garcia Peace MD Work Phone: [facility] Comment on above: Pleuritic chest pain (Primary Dx) Start: 01-22-2023 End: 01-24-2023 ambulatory ELFEGO JOHNSON [facility] Start: 01-21-2023 End: 01-21-2023 Emergency department patient visit Elfego Johnson DO Work Phone: [facility] Comment on above: Peripheral edema (Pr imary Dx) Start: 12-26-2022 End: 12-26-2022 [facility] visit, estab pt Nieves EDWARDS Work Phone: [facility] Work Phone: Start: 12-10-2022 End: 12-10-2022 Subsequent hospital visit by physician [facility] Echo Room [facility] Echocardiography Comment on above: Chest pressure; Heart palpitations; PVC (premature ventricular contraction); Lightheaded Start: 10-24-2022 End: 10-24-2022 ambulatory [facility] Start: 10-23-2022 End: 10-23-2022 Subsequent hospital visit by physician Yohan James STRATIGRAPHER - BANK APPRAISER Work Phone: [facility] Laboratory Comment on above: Chest pressure; Heart palpitations; PVC (premature ventricular contraction); Lightheaded Start: 10-17-2022 End: 10-17-2022 Emergency department patient visit Garcia Peace MD Work Phone: [facility] Comment on above: Atypical chest pain (Primary Dx); Peripheral edema Start: 10-17-2022 End: 10-17-2022 Subsequent hospital visit by physician Trevin Panchal PTA [facility] Physical Therapy Comment on above: Arrived Start: 10-15-2022 End: 10-15-2022 Subsequent hospital visit by physician Trevin Panchal PTA [facility] Physical Therapy Comment on above: Arrived Start: 10-09-2022 End: 10-09-2022 Subsequent hospital visit by physician Dl Kent PT [facility] Physical Therapy Comment on above: Arrived Start: 10-08-2022 End: 10-08-2022 [facility] visit, estab pt Prachi Saha [facility] Work Phone: [facility] Work Phone: Start: 10-08-2022 End: 10-08-2022 FQ visit, estab pt Yohan James CNP Work Phone: [facility] Work Phone: Start: 10-08-2022 End: 10-08-2022 Subsequent hospital visit by physician Yohan James STRATIGRAPHER - BANK APPRAISER Work Phone: [facility] EKG Start: 09-30-2022 End: 09-30-2022 Subsequent hospital visit by physician Trevin Panchal PTA [facility] Physical Therapy Comment on above: Arrived Start: 09-25-2022 End: 09-25-2022 Subsequent hospital visit by physician Dl Kent PT [facility] Physical Therapy Comment on above: Arrived Start: 09-23-2022 End: 09-23-2022 Subsequent hospital visit by physician Trevin Panchal PTA [facility] Physical Therapy Comment on above: Arrived Start: 09-16-2022 End: 09-16-2022 Subsequent hospital visit by physician Kameron Mcguire PT [facility] Physical Therapy Comment on above: Arrived Start: 09-05-2022 End: 09-05-2022 Subsequent hospital visit by physician [facility] Sales And Marketing Engineer Rm [facility] EKG Comment on above: Palpitations Start: 09-02-2022 End: 09-02-2022 [facility] visit, estab pt Yohan James CNP Work Phone: [facility] Work Phone: Start: 07-30-2022 End: 07-30-2022 [facility] visit, estab pt Yohan James CNP Work Phone: [facility] Work Phone: Start: 07-21-2022 End: 07-21-2022 Emergency department patient visit Jarvis Rojas MD [facility] Comment on above: COVID-19 virus infec tion (Primary Dx); Lung nodule Start: 07-14-2022 End: 07-14-2022 Emergency department patient visit Rachel Belcher Work Phone: [facility] Comment on above: Mild intermittent as thma with exacerbation (Primary Dx); Bronchitis Start: 07-06-2022 End: 07-06-2022 Emergency department patient visit Yohan Holden NP Work Phone: [facility] Comment on above: Acute upper respirat ory infection (Primary Dx); Mild asthma exacerbation Start: 07-03-2022 End: 07-03-2022 [facility] visit, estab pt Prachi Saha [facility] Work Phone: [facility] Work Phone: Start: 06-12-2022 End: 06-12-2022 Emergency department patient visit Yohan Holden NP Work Phone: [facility] Comment on above: Viral URI with cough (Primary Dx); Nausea and vomiting, unspecified vomiting type Start: 05-01-2022 End: 05-01-2022 Emergency department patient visit Yohan Holden NP Work Phone: [facility] Comment on above: Back strain, initial encounter (Primary Dx); Sprain of right ankle, unspecified ligament, initial encounter; Closed head injury, initial encounter; Acute right ankle pain Start: 03-07-2022 ambulatory YUDI REYES Facility: [facility] Start: 03-07-2022 End: 03-07-2022 Office consultation new/estab patient 60 min Yudi Reyes MD Work Phone: [facility] Comment on above: Facet arthropathy, l umbar (Primary Dx); Lumbar degenerative disc disease; Lumbar facet arthropathy Start: 03-04-2022 End: 03-04-2022 FQ visit, estab pt Prachi Saha [facility] Work Phone: [facility] Work Phone: Start: 03-04-2022 End: 03-04-2022 [facility] visit, estab pt Yohan James PROFESSIONAL PROGRAMMER ANALYST Work Phone: [facility] Work Phone: Start: 02-12-2022 ambulatory MAIN HUIZAR Facility: [facility] Start: 02-12-2022 End: 02-12-2022 Office outpatient new 30 minutes Main [place] Work Phone: [facility] Comment on above: Chronic midline low back pain with left-sided sciatica (Primary Dx); Lumbar radiculopathy; Degenerative disc disease, lumbar; Degenerative arthropathy of spinal facet joint; Numbness and tingling Start: 02-12-2022 End: 02-12-2022 Subsequent hospital visit by physician Main FREDERICK Work Phone: [facility] [place] Comment on above: Arrived Start: 02-04-2022 ambulatory YUDI POLLO Facility: [facility] Start: 12-24-2021 End: 12-26-2021 Subsequent hospital visit by physician [facility] Mri Scanner [facility] MRI Comment on above: Lumbar radiculitis; Lumbosacral spondylosis with radiculopathy; DDD (degenerative disc disease), lumbar; Lumbar pain Start: 11-22-2021 End: 11-22-2021 FQ visit, estab pt Maia García [facility] Work Phone: [facility] Work Phone: Start: 11-22-2021 End: 11-22-2021 FQHC visit, estab pt Yohan James CNP Work Phone: [facility] Work Phone: Start: 11-12-2021 End: 11-12-2021 Emergency department patient visit Azael Cisneros MD Work Phone: [facility] ED Comment on above: Left hip pain (Prima ry Dx) Start: 08-16-2021 End: 08-16-2021 Subsequent hospital visit by physician Joseph Pedroza PT [facility] Physical Therapy Comment on above: Arrived Start: 08-12-2021 End: 08-12-2021 FQHC visit, estab pt Maia García [facility] Work Phone: [facility] Work Phone: Start: 08-12-2021 End: 08-12-2021 FQHC visit, estab pt Falguni Han PROFESSIONAL PROGRAMMER ANALYST Work Phone: [facility] Work Phone: Start: 08-05-2021 End: 08-05-2021 FQHC visit, estab pt Maia García [employer] Work Phone: [facility] Work Phone: Start: 08-05-2021 End: 08-05-2021 FQHC visit, estab pt Yohan James PROFESSIONAL PROGRAMMER ANALYST Work Phone: [facility] Work Phone: Start: 08-04-2021 End: 08-04-2021 Emergency department patient visit Michelle Elder MD Work Phone: [facility] ED Comment on above: Injury of head, init ial encounter (Primary Dx); Concussion without loss of consciousness, initial encounter Start: 08-01-2021 Split Srvc Estela Vega rne Other [facility] Office Start: 07-19-2021 End: 07-19-2021 Subsequent hospital visit by physician Joseph Pedroza PT [facility] Physical Therapy Comment on above: Arrived Start: 05-24-2021 End: 05-24-2021 Subsequent hospital visit by physician Melany Emerson PT [facility] Physical Therapy Comment on above: Arrived Start: 05-17-2021 End: 05-17-2021 Subsequent hospital visit by physician Dl Kent PT [facility] Physical Therapy Comment on above: Canceled (Patient) Start: 05-14-2021 End: 05-14-2021 Subsequent hospital visit by physician Dl Kent PT [facility] Physical Therapy Comment on above: Arrived Start: 05-10-2021 End: 05-10-2021 Subsequent hospital visit by physician Dl Kent PT [facility] Physical Therapy Comment on above: Arrived Start: 04-25-2021 End: 04-25-2021 Subsequent hospital visit by physician Reza Patel [facility] Physical Therapy Comment on above: Arrived Start: 04-18-2021 End: 04-18-2021 Subsequent hospital visit by physician Dl Kent PT [facility] Physical Therapy Comment on above: Arrived Start: 04-16-2021 End: 04-16-2021 Subsequent hospital visit by physician Dl Kent PT [facility] Physical Therapy Comment on above: Arrived Start: 04-10-2021 End: 04-10-2021 [facility] visit, estab pt Yohan James PROFESSIONAL PROGRAMMER ANALYST Work Phone: [facility] Work Phone: Start: 04-08-2021 End: 04-08-2021 Emergency department patient visit Yohan James STRATIGRAPHER - BANK APPRAISER Work Phone: [facility] ED Comment on above: Thoracic myofascial strain, initial encounter (Primary Dx); Acute cystitis without hematuria Start: 03-27-2021 End: 03-28-2021 [facility] visit, estab pt Maia García [facility] Work Phone: [facility] Work Phone: Start: 03-25-2021 End: 03-25-2021 Emergency department patient visit Joseph Gallo MD Work Phone: [facility] ED Comment on above: Strain of lumbar reg ion, initial encounter (Primary Dx); Morbid obesity due to excess calories (HCC) Start: 02-28-2021 End: 02-28-2021 Emergency department patient visit Nicol Balderas Facility:[facility] Start: 02-25-2021 End: 02-25-2021 Emergency department patient visit Joseph Gallo MD Work Phone: [facility] ED Comment on above: Left leg pain (Prima ry Dx); Cellulitis, unspecified cellulitis site Start: 01-23-2021 End: 01-23-2021 Subsequent hospital visit by physician Leonard Randall MD Work Phone: [facility] OR Comment on above: Right carpal tunnel syndrome (Primary Dx) Start: 01-21-2021 End: 01-23-2021 Subsequent hospital visit by physician [facility] Vascular Imaging Room [facility] Vascular Lab Comment on above: Edema, unspecified t ype; Pain of lower extremity, unspecified laterality Start: 01-18-2021 End: 01-22-2021 Patient encounter status [facility] Schedule [facility] PRE ADMIT Start: 01-18-2021 End: 01-22-2021 Subsequent hospital visit by physician [facility] Covid19 Pat Screening Schedule [facility] PRE ADMIT Comment on above: Pre-op testing (Prim krish Dx) Start: 01-10-2021 End: 01-11-2021 Emergency department patient visit Shayan Reyes MD Work Phone: [facility] ED Comment on above: Abdominal pain, righ t lower quadrant (Primary Dx) Start: 01-09-2021 End: 01-09-2021 Subsequent hospital visit by physician Yohan James STRATIGRAPHER - BANK APPRAISER Work Phone: [facility] Laboratory Start: 12-05-2020 Split Srvc Estela Vega rne Other [facility] Office Start: 10-18-2020 End: 10-20-2020 Subsequent hospital visit by physician [facility] Ultrasound Room [facility] Ultrasound Comment on above: RLQ abdominal pain Start: 10-17-2020 End: 10-17-2020 [facility] Sleep Center Comment on above: Arrived Start: 09-25-2020 End: 09-25-2020 Established patient Yohan James Work Phone: [facility] Work Phone: Start: 09-13-2020 End: 09-13-2020 Subsequent hospital visit by physician Yohan [facility] Laboratory Comment on above: Family history of [place] PD (chronic obstructive pulmonary disease); Paresthesia of left upper and lower extremity Start: 09-12-2020 End: 09-14-2020 Subsequent hospital visit by physician [facility] Mri Scanner [facility] MRI Comment on above: Paresthesia of both hands; Weakness of both arms Start: 08-30-2020 End: 08-30-2020 Subsequent hospital visit by physician Yohan [facility] Laboratory Comment on above: Paresthesia of both hands; Weakness of both arms Start: 08-29-2020 End: 08-29-2020 Emergency department patient visit Anjum Mckeon Work Phone: [facility] ED Comment on above: Right lower quadrant abdominal pain (Primary Dx); Nausea and vomiting, intractability of vomiting not specified, unspecified vomiting type Start: 08-28-2020 End: 08-28-2020 Established patient Eufemia Wilkerson Work Phone: [facility] Work Phone: Start: 08-28-2020 End: 08-28-2020 Established patient Yohan Blanca Work Phone: [facility] Work Phone: Start: 08-27-2020 End: 08-27-2020 Subsequent hospital visit by physician Yohan [facility] Laboratory Comment on above: Abdominal cramping i n right lower quadrant; Women's annual routine gynecological examination Start: 08-07-2020 End: 08-07-2020 Subsequent hospital visit by physician [facility] Pulmonary Function Room [facility] PFT Comment on above: Shortness of breath Start: 07-31-2020 End: 07-31-2020 Subsequent hospital visit by physician Vlad Covid Screening Schedule [facility] Covid Screening Comment on above: Preoperative testing Start: 07-25-2020 End: 07-25-2020 Established patient Eufemia Wilkerson Work Phone: [facility] Work Phone: Start: 07-25-2020 End: 07-25-2020 New patient Yohan Blanca Work Phone: [facility] Work Phone: Start: 07-17-2020 End: 07-17-2020 Emergency department patient visit [facility] ED Comment on above: Chest pain, unspecif ied type (Primary Dx); COVID-19 Start: 07-09-2020 End: 07-09-2020 Emergency department patient visit Joseph Gallo Work Phone: [facility] ED Comment on above: Mild intermittent as thma with exacerbation (Primary Dx) Start: 05-15-2020 End: 05-16-2020 Emergency department patient visit Shayan Reyes Work Phone: [facility] ED Comment on above: Hip sprain, left, in itial encounter (Primary Dx) Start: 03-20-2020 End: 03-20-2020 Emergency department patient visit Shayan Reyes Work Phone: [facility] ED Comment on above: Strain of lumbar reg ion, initial encounter (Primary Dx) Start: 11-16-2019 End: 11-16-2019 Subsequent hospital visit by physician Willie Tello Work Phone: [facility] OR Comment on above: S/P laparoscopy (Shameka ky Dx) Start: 11-14-2019 End: 11-14-2019 Subsequent hospital visit by physician Hussein Austin [facility] Laboratory Comment on above: Pre-op testing Start: 11-11-2019 End: 11-15-2019 Subsequent hospital visit by physician Mark Holderid19 Pat Screening Schedule [facility] PRE ADMIT Start: 10-11-2019 End: 10-11-2019 Emergency department patient visit Mor Jo Work Phone: [facility] ED Comment on above: Chronic bilateral lo wer abdominal pain (Primary Dx) Start: 08-22-2019 End: 08-22-2019 Emergency department patient visit Hussein Austin [facility] ED Comment on above: Upper respiratory tr act infection, unspecified type (Primary Dx) Start: 07-09-2017 End: 07-09-2017 Ambulatory GARCIA BRADLEY Facility:[facility] Start: 02-08-2017 End: 02-09-2017 Ambulatory [facility] Facility: Procedures Date Procedure Procedure Detail Performing Clinician Start: 2024 Follow-up visit Follow-up JANETTE MILLER Start: 06-09-2024 Adult depression screening assessment Janette Miller STRATIGRAPHER-PROFESSIONAL PROGRAMMER ANALYST Work Phone: Start: 05-27-2024 Ct thorax w/o contrast material [place] STRATIGRAPHER - PROFESSIONAL PROGRAMMER ANALYST Work Phone: Start: 02-05-2024 Behav assmt w/score & docd/stand instrument Yaneth Singletary MILK BOTTLING MACHINE OPERATOR Work Phone: Start: 02-05-2024 Current tobacco non-user cad cap copd pv dm Yohan Blanca PROFESSIONAL PROGRAMMER ANALYST Work Phone: Start: 02-05-2024 Hysterectomy Yohan Blanca PROFESSIONAL PROGRAMMER ANALYST Work Phone: Start: 02-05-2024 Most recent diastolic blood pressure < 80 mm hg Yohan Blanca PROFESSIONAL PROGRAMMER ANALYST Work Phone: Start: 02-05-2024 Most recent systolic blood pressure <130 mm hg Yohan Blanca PROFESSIONAL PROGRAMMER ANALYST Work Phone: Start: 02-05-2024 Screening for disorder Visit For: Screening For Disorder Yanethdara Singletary MILK BOTTLING MACHINE OPERATOR Work Phone: Start: 02-05-2024 Surgical procedure Yohan Blanca PROFESSIONAL PROGRAMMER ANALYST Work Phone: Start: 01-04-2024 Radex foot complete minimum 3 views Yeison Hansen DPM Work Phone: Start: 09-07-2023 Current tobacco non-user cad cap copd pv dm Yohna Blanca PROFESSIONAL PROGRAMMER ANALYST Work Phone: Start: 09-07-2023 Decompression of median nerve Yohan Blanca PROFESSIONAL PROGRAMMER ANALYST Work Phone: Start: 09-07-2023 Hemoglobin glycosylated a1c Yohan Blanca PROFESSIONAL PROGRAMMER ANALYST Work Phone: Start: 09-07-2023 Most recent hemoglobin a1c level < 7.0% Yohan Blanca PROFESSIONAL PROGRAMMER ANALYST Work Phone: Start: 09-07-2023 Surgical procedure Yohan Blanca PROFESSIONAL PROGRAMMER ANALYST Work Phone: Start: 07-24-2023 Current tobacco non-user cad cap copd pv dm Yohan James PROFESSIONAL PROGRAMMER ANALYST Work Phone: Start: 07-24-2023 Most recent diastolic blood pressure < 80 mm hg Yohan James PROFESSIONAL PROGRAMMER ANALYST Work Phone: Start: 07-24-2023 Most recent systolic blood pressure <130 mm hg Yohan James PROFESSIONAL PROGRAMMER ANALYST Work Phone: Start: 07-24-2023 Psychotherapy w/patient 30 minutes Yaneth Singletary MILK BOTTLING MACHINE OPERATOR Work Phone: Start: 06-24-2023 Collection venous blood venipuncture Nargis Reynolds PROFESSIONAL PROGRAMMER ANALYST Work Phone: Start: 06-24-2023 Hysterectomy Yohan James PROFESSIONAL PROGRAMMER ANALYST Work Phone: Start: 06-24-2023 Most recent diastolic blood pressure 80-89 mm hg Nargis Reynolds PROFESSIONAL PROGRAMMER ANALYST Work Phone: Start: 06-24-2023 Most recent systolic blood press 130-139mm hg Nargis Reynolds PROFESSIONAL PROGRAMMER ANALYST Work Phone: Start: 06-24-2023 Psychotherapy w/patient 30 minutes Eufemia Wilkerson LISWS Work Phone: Start: 06-24-2023 Total hysterectomy Yohan James PROFESSIONAL PROGRAMMER ANALYST Work Phone: Start: 06-21-2023 COVID-19, RAPID Garcia Peace MD Work Phone: Start: 06-21-2023 Iaadiadoo influenza Garcia Peace MD Work Phone: Start: 06-21-2023 Ct thorax w/contrast material Garcia Peace MD Work Phone: Start: 06-21-2023 Urine test visual color cmprsn meths Garcia Peace MD Work Phone: Start: 06-21-2023 Radiologic exam chest single view Garcia Peace MD Work Phone: Start: 06-21-2023 Basic metabolic panel calcium total Garcia Peace MD Work Phone: Start: 06-21-2023 Ecg routine ecg w/least 12 lds w/i&r Garcia Peace MD Work Phone: Start: 12-26-2022 Most recent diastolic blood pressure < 80 mm hg Yohan James PROFESSIONAL PROGRAMMER ANALYST Work Phone: Start: 12-26-2022 Most recent systolic blood pressure <130 mm hg Yohan James PROFESSIONAL PROGRAMMER ANALYST Work Phone: Start: 12-26-2022 Psychotherapy w/patient 30 minutes Nieves Cormier [employer] WORK[employer] Work Phone: Start: 12-10-2022 TILT TABLE REPORT Leticia Ríos MD Work Phone: Start: 10-23-2022 Lipid panel Jazmín Brambila PA-C Work Phone: Start: 10-17-2022 Ct thorax w/contrast material Beverley Bedenkop STRATIGRAPHER - PROFESSIONAL PROGRAMMER ANALYST Work Phone: Start: 10-17-2022 Urinalysis microscopic only Garcia Peace MD Work Phone: Start: 10-17-2022 Urnls dip stick/tablet rgnt auto w/o microscopy Beverley Bedenkop STRATIGRAPHER - PROFESSIONAL PROGRAMMER ANALYST Work Phone: Start: 10-17-2022 Comprehensive metabolic panel Beverley Bedenkop STRATIGRAPHER - PROFESSIONAL PROGRAMMER ANALYST Work Phone: Start: 10-17-2022 Ecg routine ecg w/least 12 lds w/i&r Garcia Peace MD Work Phone: Start: 10-08-2022 Asthma Control Test/Baseline Evaluation Yohan James CNP Work Phone: Start: 10-08-2022 Most recent diastolic blood pressure < 80 mm hg Yohan James CNP Work Phone: Start: 10-08-2022 Most recent systolic blood press 130-139mm hg Yohan James PROFESSIONAL PROGRAMMER ANALYST Work Phone: Start: 10-08-2022 Psychotherapy w/patient 30 minutes Prachi Saha LPCC-S Work Phone: Start: 10-08-2022 Ecg routine ecg w/least 12 lds w/i&r Leonard Randall MD Work Phone: Start: 10-08-2022 Basic metabolic panel calcium total Leonard Randall MD Work Phone: Start: 09-02-2022 Most recent diastolic blood pressure < 80 mm hg Yohan James CNP Work Phone: Start: 09-02-2022 Most recent systolic blood press 130-139mm hg Yohan Blancadinah FLANNERY Work Phone: Start: 07-30-2022 Asthma Control Test/Baseline Evaluation Yohan James CNP Work Phone: Start: 07-30-2022 Hemoglobin glycosylated a1c Yohan James CNP Work Phone: Start: 07-30-2022 Most recent diastolic blood pressure 80-89 mm hg Yohan James CNP Work Phone: Start: 07-30-2022 Most recent hemoglobin a1c level < 7.0% Yohan James CNP Work Phone: Start: 07-30-2022 Most recent systolic blood press 130-139mm hg Yohan James CNP Work Phone: Start: 07-30-2022 Psychotherapy w/patient 30 minutes Prachi Saha [facility] Work Phone: Start: 07-21-2022 Ct thorax w/contrast material Jarvis Rojas MD Start: 07-21-2022 Radiologic exam chest single view Jarvis Rojas MD Start: 07-21-2022 Comprehensive metabolic panel Jarvis Rojas MD Start: 07-21-2022 COVID-19, RAPID Jarvis Rojas MD Start: 07-21-2022 Iaadiadoo influenza Jarvis Rojas MD Start: 07-21-2022 Ecg routine ecg w/least 12 lds w/i&r Jarvis Rojas MD Start: 07-14-2022 Radiologic exam chest single view Rachel J Belcher DO Work Phone: Start: 07-14-2022 COVID-19, RAPID Rachel J Belcher DO Work Phone: Start: 07-14-2022 Iaadiadoo influenza Rachel Walker Belcher DO Work Phone: Start: 07-06-2022 Radiologic exam chest single view Brad Jallohry PA-C Work Phone: Start: 07-06-2022 Ecg routine ecg w/least 12 lds w/i&r Rachel Aaron Belcher DO Work Phone: Start: 06-12-2022 Ct abdomen & pelvis w/contrast material Jerod Natalie Hammuda PA-C Work Phone: Start: 06-12-2022 Comprehensive metabolic panel Jerod Natalie Hammuda PA-C Work Phone: Start: 06-12-2022 Urinalysis microscopic only Jerod A Mckenna uda PA-C Work Phone: Start: 06-12-2022 Urine test visual color cmprsn meths Jerod A Hammuda PA-C Work Phone: Start: 06-12-2022 COVID-19, RAPID Jerod A Hammuda PA-C Work Phone: Start: 06-12-2022 Iaadiadoo influenza Jerod Natalie Hammuda PA-C Work Phone: Start: 05-01-2022 End: 05-01-2022 Radex spine lumbosacral 2/3 views Brad Kaiden PA-C Work Phone: Start: 05-01-2022 Ct head/brain w/o contrast material Brad Kaiden PA-C Work Phone: Start: 03-04-2022 Most recent diastolic blood pressure 80-89 mm hg Yohan James PROFESSIONAL PROGRAMMER ANALYST Work Phone: Start: 03-04-2022 Most recent systolic blood press 130-139mm hg Yohan James PROFESSIONAL PROGRAMMER ANALYST Work Phone: Start: 03-04-2022 Psychotherapy w/patient 30 minutes Prachi Yifan LPCC-S Work Phone: Start: 02-12-2022 Radex spine lumbosacral minimum 4 views Main FREDERICK Work Phone: Start: 12-24-2021 Mri spinal canal lumbar w/o contrast material Deborah Alina Marquis STRATIGRAPHER - PROFESSIONAL PROGRAMMER ANALYST Work Phone: Start: 11-22-2021 Most recent diastolic blood pressure 80-89 mm hg Yohan Stewarter PROFESSIONAL PROGRAMMER ANALYST Work Phone: Start: 11-22-2021 Most recent systolic blood press 130-139mm hg Yohan Blanca PROFESSIONAL PROGRAMMER ANALYST Work Phone: Start: 11-22-2021 Psychotherapy w/patient 30 minutes Maia García LPCC-S Work Phone: Start: 11-12-2021 Radex hip unilateral with pelvis 2-3 views Azael Cisneros MD Work Phone: Start: 08-12-2021 Decompression of median nerve Yohan Stewarter PROFESSIONAL PROGRAMMER ANALYST Work Phone: Start: 08-12-2021 Psychotherapy w/patient 30 minutes Maia García LP[facility]S Work Phone: Start: 08-12-2021 Surgical procedure Yohan Blanca PROFESSIONAL PROGRAMMER ANALYST Work Phone: Start: 08-05-2021 Hemoglobin glycosylated a1c Yohan Blanca PROFESSIONAL PROGRAMMER ANALYST Work Phone: Start: 08-05-2021 Most recent diastolic blood pressure < 80 mm hg Yohan Blanca PROFESSIONAL PROGRAMMER ANALYST Work Phone: Start: 08-05-2021 Most recent systolic blood pres>/equal 140 mm hg Yohan Blanca PROFESSIONAL PROGRAMMER ANALYST Work Phone: Start: 08-05-2021 Psychotherapy w/patient 30 minutes Maia García LPCC-S Work Phone: Start: 08-04-2021 Ct head/brain w/o contrast material Michelle Elder MD Work Phone: Start: 08-04-2021 Ct cervical spine w/o contrast material Michelle Elder MD Work Phone: Start: 08-04-2021 Gonadotropin chorionic qualitative Michelle Elder MD Work Phone: Start: 08-01-2021 Nerve conduction studies 5-6 studies Estela De La Torre Start: 04-10-2021 Most recent diastolic blood pressure < 80 mm hg Yohan Blanca PROFESSIONAL PROGRAMMER ANALYST Work Phone: Start: 04-10-2021 Most recent systolic blood press 130-139mm hg Yohan Blanca PROFESSIONAL PROGRAMMER ANALYST Work Phone: Start: 04-08-2021 Ct thorax w/contrast material Leonard Ramirez [employer] Work Phone: Start: 04-08-2021 BASIC METABOLIC PANEL W/ REFLEX TO MG FOR LOW K Leonard Ramirez [employer] Work Phone: Start: 04-08-2021 Fibrin dgradj products d-dimer quantitative Leonard Ramirez [employer] Work Phone: Start: 04-08-2021 Urine test visual color cmprsn meths Leonard Ramirez [employer] Work Phone: Start: 04-08-2021 Urnls dip stick/tablet reagent auto microscopy Elfego Andjoe DO Work Phone: Start: 04-08-2021 Radiologic exam abdomen 1 view Leonard Ramirez [employer] Work Phone: Start: 03-27-2021 Ketorolac tromethamine inj Yohan Blanca PROFESSIONAL PROGRAMMER ANALYST Work Phone: Start: 03-27-2021 Most recent diastolic blood pressure 80-89 mm hg Yohan James PROFESSIONAL PROGRAMMER ANALYST Work Phone: Start: 03-27-2021 Most recent systolic blood pres>/equal 140 mm hg Yohan James PROFESSIONAL PROGRAMMER ANALYST Work Phone: Start: 03-27-2021 Psychotherapy w/patient 30 minutes Maia García [facility] Work Phone: Start: 03-27-2021 Therapeutic prophylactic/dx injection subq/im Yohan James PROFESSIONAL PROGRAMMER ANALYST Work Phone: Start: 03-25-2021 Radex spine lumbosacral 2/3 views Joseph Gallo MD Work Phone: Start: 03-25-2021 Urine test visual color cmprsn meths Joseph Gallo MD Work Phone: Start: 01-23-2021 Urine test visual color cmprsn meths Leonard Randall MD Work Phone: Start: 01-21-2021 Dup-scan xtr veins complete bilateral study Twyla Quiros STRATIGRAPHER - PROFESSIONAL PROGRAMMER ANALYST Work Phone: Start: 01-18-2021 COVID-19 Melvin Carbajal MD Work Phone: Start: 01-11-2021 Ct abdomen & pelvis w/contrast material Shayan Reyes MD Work Phone: Start: 01-11-2021 Urnls dip stick/tablet rgnt auto w/o microscopy Shayan Reyes MD Work Phone: Start: 01-10-2021 Assay of lipase Shayan Reyes MD Work Phone: Start: 01-10-2021 Lactate [Moles/volume] in Serum or Plasma Shayan Reyes MD Work Phone: Start: 01-09-2021 Basic metabolic panel calcium total Leonard Randall MD Work Phone: Start: 12-05-2020 Nerve conduction studies 5-6 studies Estela De La Torre Start: 10-18-2020 Dup-scan artl diana abdl/pel/scrot&/rpr orgn lmt Willie Tello MD Work Phone: Start: 10-18-2020 Us transvaginal Willie Tello MD Work Phone: Start: 09-25-2020 Diast bp <80 mm hg Yohan James Work Phone: Start: 09-25-2020 Syst bp lt 130 mm hg Yohan Stewarter Work Phone: Start: 09-12-2020 Mri spinal canal cervical w/o & w/contr matrl [place] Work Phone: Start: 09-12-2020 Mri brain brain stem w/o contrast material L[place]ager [place] Work Phone: Start: 08-30-2020 Sedimentation rate rbc automated [place] [place] Work Phone: Start: 08-30-2020 VITAMIN B12 & FOLATE Quita cruz Work Phone: Start: 08-29-2020 Ct abdomen & pelvis w/contrast material Anjum Mckeon Work Phone: Start: 08-29-2020 Urnls dip stick/tablet reagent auto microscopy Anjum Mckeon Work Phone: Start: 08-29-2020 Assay of lactate Anjum Mckeon Work Phone: Start: 08-29-2020 Assay of lipase Anjum Mckeon Work Phone: Start: 08-29-2020 Blood count complete auto&auto difrntl wbc Anjum Mckeon Work Phone: Start: 08-29-2020 Comprehensive metabolic panel Anjum Mckeon Work Phone: Start: 08-29-2020 Gonadotropin chorionic qualitative Anjum Mckeon Work Phone: Start: 08-28-2020 Diast bp >/= 90 mm hg Yohan Stewarter Work Phone: Start: 08-28-2020 Psychotherapy w/patient 30 minutes Eufemia Wilkerson Work Phone: Start: 08-28-2020 Syst bp >/= 140 mm hg Yohan Stewarter Work Phone: Start: 08-27-2020 Blood count complete auto&auto difrntl wbc Willie Tello Work Phone: Start: 08-27-2020 Microscopic observation [Identifier] in Cervix by Cyto stain Joseph Gallo MD Work Phone: Start: 08-07-2020 MDI TREATMENT Gagandeep Leel Work Phone: Start: 08-07-2020 Brncdilat rspse spmtry pre&post-brncdilat admn Yohan L Blanca Work Phone: Start: 07-31-2020 COVID-19 Sandeep Carbajal Work Phone: Start: 07-25-2020 Cholecystectomy Yohan Blanca Start: 07-25-2020 Cholecystectomy Yohan Blanca PROFESSIONAL PROGRAMMER ANALYST Work Phone: Start: 07-25-2020 Hemoglobin glycosylated a1c Yohan Blanca Work Phone: Start: 07-25-2020 Iaad ia hiv-1 ag w/hiv-1 & hiv-2 antbdy single Yohan Blanca Work Phone: Start: 07-25-2020 Psychotherapy w/patient 30 minutes Eufemia Wilkerson Work Phone: Start: 07-25-2020 Pt-focused hlth risk assmt score doc stnd instrm Yohan Blanca Work Phone: Start: 07-25-2020 Tonsillectomy Yohan Blanca PROFESSIONAL PROGRAMMER ANALYST Work Phone: Start: 07-25-2020 Tonsillectomy & adenoidectomy Yohan Blanca Start: 07-25-2020 Tonsillectomy primary/secondary Yohan Blanca Start: 07-17-2020 Ct thorax w/contrast material Lyla Crystal Work Phone: Start: 07-17-2020 Assay of troponin quantitative Lyla Crystal Work Phone: Start: 07-17-2020 Blood count complete auto&auto difrntl wbc Lyla Crystal Work Phone: Start: 07-17-2020 Comprehensive metabolic panel Lyla Mosscheson Work Phone: Start: 07-17-2020 Natriuretic peptide Lyla Mosscheson Work Phone: Start: 07-17-2020 Ecg routine ecg w/least 12 lds w/i&r Chandni Sadler Work Phone: Start: 07-09-2020 Radiologic exam chest single view Joseph Crisdorianu Work Phone: Start: 05-16-2020 Radiologic examination femur minimum 2 views Shayan A Pollo Work Phone: Start: 05-16-2020 Urine test visual color cmprsn meths Shayan A Pollo Work Phone: Start: 03-20-2020 Radex spine lumbosacral 2/3 views Shayan A Pollo Work Phone: Start: 03-20-2020 Urinalysis microscopic only Shayan A Hussa in Work Phone: Start: 03-20-2020 Urine test visual color cmprsn meths Shayan A Pollo Work Phone: Start: 03-20-2020 Urnls dip stick/tablet rgnt auto w/o microscopy Shayan A Pollo Work Phone: Start: 11-14-2019 Gonadotropin chorionic qualitative Willie Tello Work Phone: Start: 11-11-2019 COVID-19 Sandeep Raven Work Phone: Start: 10-11-2019 Urinalysis microscopic only Mor Jo Work Phone: Start: 10-11-2019 Urnls dip stick/tablet rgnt auto w/o microscopy Mor Jo Work Phone: Start: 10-11-2019 Ct abdomen & pelvis w/contrast material Mor Jo Work Phone: Start: 10-11-2019 Assay of lipase Mor Jo Work Phone: Start: 10-11-2019 Blood count complete auto&auto difrntl wbc Mor Jo Work Phone: Start: 10-11-2019 Gonadotropin chorionic qualitative Mor Jo Work Phone: Start: 08-22-2019 Radiologic exam chest 2 views Jr Olsen Work Phone: Start: 08-22-2019 Iaadiadoo influenza Jr Olsen Work Phone: Plan of Treatment Date Care Activity Detail Author Start: 2043 Shingles Vaccine (1 of 2) Shingles Vaccine (1 of 2) [email or web address] Work Phone: Start: 09-14-2025 Adult BMI Screening Adult BMI Screen ing [facility] Start: 2025 Adult BMI Screening Adult BMI Screen ing [facility] Start: 2025 Tobacco Screening Tobacco Screening [facility] Start: 06-09-2025 Adult BMI Screening Adult BMI Screen ing [facility] Start: 06-09-2025 Depression Screening Depression Scre ening [facility] Start: 06-09-2025 Tobacco Screening Tobacco Screening [facility] Start: 11-30-2024 End: 11-30-2024 Patient encounter procedure 11/30/2024 11:45 AM EDT Office Visit [facility] Rheumatology, A Department of [address] [phone] Lisa Wade PA [address] [place] [phone] [facility] Rheumatology, A Department of [facility] Start: 09-06-2024 End: 09-06-2024 Patient encounter procedure 09/06/2024 10:15 AM EST Office Visit [facility] OBSTETRICS & GYNECOLOGY Part of [address] [address] Vane Catalan, DO [address] [place] [id number] yearly [facility] OBSTETRICS & GYNECOLOGY Part of [facility] Comment on above: yearly Start: 09-01-2024 Depression Screen Depression Screen [facility] Start: 07-15-2024 End: 07-15-2024 Patient encounter procedure 07/15/2024 1:30 PM EST Office Visit [facility] [address] [place] [address] Josiah Mullins MD [address] [phone] new to provider, was seen in [place] location, but has moved to [facility] Comment on above: new to provider, was seen in [place] location, but has moved to [place] Start: 07-14-2024 End: 07-14-2024 Patient encounter procedure 07/14/2024 8:45 AM EST Office Visit [facility] OUTREACH PULM Part of [address] [id number] [place], STRATIGRAPHER - PROFESSIONAL PROGRAMMER ANALYST [address] [phone] lung nodules, persistant asthma [facility] OUTREACH PULM Part of [facility] Comment on above: lung nodules, persis tant asthma Start: 06-27-2024 End: 06-27-2024 Patient encounter procedure 06/27/2024 10:00 AM EST Appointment [facility] CT Scan [address] [place], [place] [phone] epic* sched w pt [facility] CT Scan Comment on above: epic* sched w pt Start: 05-06-2024 FQHC visit, estab pt Medical E stablished [facility] Work Phone: Start: 03-06-2024 COVID-19 Vaccine () COVID-19 Vaccine () [facility] Start: 03-06-2024 COVID-19 Vaccine ( season) COVID-19 Vaccine () [facility] Start: 03-06-2024 Influenza vaccination Influenza Vacc ine [facility] Start: 02-05-2024 End: 02-05-2024 Patient education based on identified need [facility] Start: 02-05-2024 C reactive protein [Mass/volume] in Serum or Plasma C-Reactive Protein, [facility] Start: 02-05-2024 CBC W Auto Different ial panel - Blood CBC With Differential/Platelet [facility] Start: 02-05-2024 Urate [Mass/volume] in Serum or Plasma [facility] Start: 02-04-2024 Influenza vaccination Flu vaccine (# 1) [facility] Start: 12-23-2023 [facility] Start: 12-08-2023 FQHC visit, estab pt Medical E stablished Patient [facility] Work Phone: Start: 09-07-2023 End: 09-07-2023 Patient education based on identified need [facility] Start: 08-27-2023 Screening for malign ant neoplasm of cervix [facility] Start: 08-24-2023 FQHC visit, estab pt Medical E stablished Patient [facility] Work Phone: Start: 08-18-2023 End: 08-18-2023 Patient encounter procedure 08/18/2023 8:15 AM EST Office Visit [facility] OBSTETRICS & GYNECOLOGY Part of [facility] [address] [facility] [address] [place] [address] Vane Catalan, DO [address] [place] [address] yearly [facility] OBSTETRICS & GYNECOLOGY Part of [facility] Comment on above: yearly Start: 07-24-2023 FQHC visit, estab pt Medical E stablished Patient [facility] Work Phone: Start: 07-24-2023 End: 07-24-2023 Patient education based on identified need [facility] Start: 07-16-2023 End: 07-16-2023 Patient encounter procedure 07/16/2023 2:00 PM EST Office Visit [facility] PUL Part [address] [address] [place], STRATIGRAPHER - PROFESSIONAL PROGRAMMER ANALYST [address] [address] 6m f/u with lab- lung nodules, persistent asthma [facility] PUL Part [facility] Comment on above: 6m f/u with lab- cookie g nodules, persistent asthma Start: 06-29-2023 Thyrotropin [Units/volume] in Serum or Plasma [facility] Start: 06-24-2023 End: 06-24-2023 Patient education based on identified need [facility] Start: 06-01-2023 End: 06-01-2023 Patient encounter procedure 06/01/2023 Office Visit Pulmonology [place], STRATIGRAPHER - PROFESSIONAL PROGRAMMER ANALYST [address] [address] [facility] Part [facility] Start: 05-29-2023 End: 05-29-2023 Patient encounter procedure 05/29/2023 Appointment Radiology [facility] CT Scan Start: 04-09-2023 FQHC visit, estab pt Medical E stablished Patient [facility] Work Phone: Start: 03-06-2023 COVID-19 Vaccine ( season) COVID-19 Vaccine () DAVIE MILLER [facility] Start: 02-10-2023 End: 02-10-2023 Patient encounter procedure 02/10/2023 Office Visit Obstetrics and Gynecology Vane Catalan, DO [address] [place] [address] [facility] OBSTETRICS & GYNECOLOGY Part of [facility] Start: 02-04-2023 End: 02-04-2023 Patient encounter procedure 02/04/2023 Office Visit Obstetrics and Gynecology Willie Tello MD [address] [place] [address] [facility] OBSTETRICS & GYNECOLOGY [facility] Start: 02-03-2023 Influenza vaccination [facility] Start: 01-14-2023 End: 01-14-2023 Patient encounter procedure 01/14/2023 Office Visit Obstetrics and Gynecology Maia Alarcon PA-C [address] [place] [address] [facility] OBSTETRICS [facility] Start: 01-05-2023 End: 01-05-2023 Admission to same day surgery center 01/05/2023 Surgery IP Unit Vane Catalan, DO [address] [place] [address] HYSTERECTOMY VAGINAL LAPAROSCOPIC ROBOTIC ASSISTED, POSSIBLE BSO, POSSIBLE LAPAROSCOPIC COLPOPEXY [facility] Comment on above: HYSTERECTOMY VAGINAL LAPAROSCOPIC ROBOTIC ASSISTED, POSSIBLE BSO, POSSIBLE LAPAROSCOPIC COLPOPEXY Start: 01-05-2023 End: 01-05-2023 Laps total hysterect 250 gm/< w/rmvl tube/ovary HYSTERECTOMY VAGINAL LAPAROSCOPIC ROBOTIC ASSISTED Menorrhagia with regular cycle 01/05/2023 1:00 PM EDT [facility] Start: 01-05-2023 Subsequent hospital visit by physician 01/05/2023 Hospital Encounter IP Unit Vane Catalan, DO [address], [place] [id number] [facility] Start: 12-30-2022 End: 12-30-2022 Patient encounter procedure 12/30/2022 Office Visit Obstetrics and Gynecology Vane Catalan, DO [address] [place] [address] [facility] OBSTETRICS & GYNECOLOGY Part [facility] Start: 12-26-2022 End: 12-26-2022 Patient education based on identified need [facility] Start: 12-23-2022 End: 12-23-2022 Patient encounter procedure 12/23/2022 Office Visit Obstetrics and Gynecology Vane Catalan, DO [address] [place] [address] [facility] OBSTETRICS & GYNECOLOGY Part [facility] Start: 12-17-2022 End: 12-17-2022 Patient encounter procedure 12/17/2022 Office Visit Cardiology Jazmín Brambila PA-C [address] [place] [address] [facility] CARDIOLOGY Part [facility] Start: 12-11-2022 End: 12-11-2022 Patient encounter procedure 12/11/2022 Office Visit Pulmonology [place], STRATIGRAPHER - PROFESSIONAL PROGRAMMER ANALYST 2[address] [facility] [address] [place], [place] [phone] [facility] OUTREACH PULM Part [facility] Start: 12-09-2022 End: 12-09-2022 Patient encounter procedure 12/09/2022 Office Visit Cardiology Jazmín Brambila PA-C [address] [place] [id number] [facility] CARDIOLOGY Part [facility] Start: 11-26-2022 End: 11-26-2022 Patient encounter procedure [facility] Start: 11-19-2022 End: 11-19-2022 Patient encounter procedure 11/19/2022 Office Visit Pulmonology Jr Pedraza, DO 2222 [facility] [address] [place], [place] [phone] [facility] OUTREACH PULM Part [facility] Start: 11-03-2022 End: 11-03-2022 Patient encounter procedure 11/03/2022 Appointment Radiology [facility] CT Scan Start: 10-24-2022 End: 10-24-2022 Tendon sheath incision FINGER TRIGGER RELEASE Trigger index finger of left hand 10/24/2022 1:55 PM EDT [facility] Start: 10-24-2022 End: 10-24-2022 Admission to same day surgery center 10/24/2022 Surgery IP Unit [place] Randall MD [address] [place] [address] LEFT INDEX TRIGGER FINGER RELEASE [facility] Comment on above: LEFT INDEX TRIGGER F LADARIUS RELEASE Start: 10-24-2022 Subsequent hospital visit by physician 10/24/2022 Hospital Encounter IP Unit [place] Randall MD [address] [place] [address] [facility] Start: 10-24-2022 End: 10-24-2022 Tendon sheath incision FINGER TRIGGER RELEASE Trigger index finger of left hand 10/24/2022 11:50 AM EDT [facility] Start: 10-24-2022 End: 10-24-2022 Admission to same day surgery center 10/24/2022 Surgery IP Unit [place] Randall MD [address] [place] [address] LEFT INDEX TRIGGER FINGER RELEASE [facility] Comment on above: LEFT INDEX TRIGGER F LADARIUS RELEASE Start: 10-24-2022 Subsequent hospital visit by physician 10/24/2022 Hospital Encounter IP Unit [place] Randall MD [address] [place] [address] [facility] Start: 10-24-2022 End: 10-24-2022 Tendon sheath incision FINGER TRIGGER RELEASE Trigger index finger of left hand 10/24/2022 10:30 AM [facility] Start: 10-23-2022 End: 10-23-2022 Patient encounter procedure 10/23/2022 Office Visit Cardiology Jazmín Brambila PA-C [address] [place] [address] [facility] CARDIOLOGY [facility] Start: 10-21-2022 End: 10-21-2022 Patient encounter procedure 10/21/2022 Appointment Radiology [facility] CT Scan Start: 10-21-2022 End: 10-21-2022 Patient encounter procedure 10/21/2022 Appointment Physical Therapy Dl Kent, [facility] Start: 10-17-2022 End: 10-17-2022 Patient encounter procedure 10/17/2022 Appointment Physical Therapy Dl Kent PT [facility] Start: 10-15-2022 End: 10-15-2022 Patient encounter procedure 10/15/2022 Appointment Physical Therapy Trevin Panchal PTA [facility] Start: 10-14-2022 End: 10-14-2022 Patient encounter procedure 10/14/2022 Initial consult Obstetrics and Gynecology Vane Catalan, DO [address] [place] [address] [facility] OBSTETRICS & GYNECOLOGY [facility] Start: 10-14-2022 End: 10-14-2022 Professional / ancillary services management 10/14/2022 Ancillary Procedure Obstetrics and Gynecology [facility] OBSTETRICS GYNECOLOGY [facility] Start: 10-09-2022 End: 10-09-2022 Patient encounter procedure 10/09/2022 Appointment Physical Therapy Dl Kent PT [facility] Start: 10-08-2022 End: 10-08-2022 Patient education based on identified need [facility] Start: 10-08-2022 FQHC visit, estab pt He [facility] Work Phone: Comment on above: Note: Please make a referral to: Start: 10-07-2022 End: 10-07-2022 Patient encounter procedure 10/07/2022 Appointment Physical Therapy Trevin Panchal PTA [facility] Start: 10-02-2022 End: 10-02-2022 Patient encounter procedure 10/02/2022 Appointment Physical Therapy Dl Kent, PT [facility] Physical Therapy Start: 10-02-2022 Other Diagnostic Test: [facility] Start: 09-30-2022 End: 09-30-2022 Patient encounter procedure 09/30/2022 Appointment Physical Therapy Trevin Panchal, JUANITA [facility] Start: 09-25-2022 End: 09-25-2022 Patient encounter procedure 09/25/2022 Appointment Physical Therapy Dl Kent, PT [facility] Start: 09-23-2022 End: 09-23-2022 Patient encounter procedure 09/23/2022 Appointment Physical Therapy Trevin Panchal, JUANITA [facility] Start: 09-19-2022 End: 09-19-2022 Patient encounter procedure 09/19/2022 Appointment Physical Therapy Trevin Panchal, JUANITA [facility] Start: 09-08-2022 End: 09-08-2022 Patient encounter procedure 09/08/2022 Initial consult Obstetrics and Gynecology Vane Catalan, DO [address] [place] [address] [facility] OBSTETRICS & GYNECOLOGY Part of [facility] Start: 09-02-2022 FQHC visit, estab pt Medical E stablished Patient [facility] Work Phone: Start: 09-02-2022 End: 09-02-2022 Patient education based on identified need [facility] Start: 07-30-2022 End: 07-30-2022 Patient education based on identified need [facility] Start: 05-21-2022 FQHC visit, estab pt Medical E stablished Patient [facility] Work Phone: Start: 03-06-2022 Influenza vaccination [facility] Start: 03-04-2022 End: 03-04-2022 Patient education based on identified need provided active listening; encouraged, explored, and supported the pt as she processed current stressor(s) impacting mood and functioning. ~Discussed and supported personal health goals. ~Explored coping mechanisms and support system; encouraged use, when needed [facility] Start: 03-04-2022 End: 03-04-2022 Patient education based on identified need [facility] Start: 02-03-2022 Influenza vaccination Flu vaccine (# 1) [facility] Start: 01-12-2022 COVID-19 Vaccine (3 - Booster for Pfizer series) COVID-19 Vaccine (3 - Booster for Pfizer series) [facility] Start: 12-26-2021 End: 12-26-2021 Patient encounter procedure [facility] OUTREACH PUL Part [facility] Start: 12-18-2021 End: 12-18-2021 Patient encounter procedure 12/18/2021 Office Visit Pulmonology [place], STRATIGRAPHER - PROFESSIONAL PROGRAMMER ANALYST [address] [address] [facility] PUL Part [facility] Start: 12-13-2021 COVID-19 Vaccine (3 - Booster for Pfizer series) COVID-19 Vaccine (3 - Booster for Pfizer series) [facility] Start: 11-22-2021 End: 11-22-2021 Patient education based on identified need Discussed current self-care methods/coping skills. ~Validated and normalized pt?s feelings while assisting patient process recent events. ~Discussed ongoing counseling. ~Discussed lifestyle changes to address chronic illness. nephew ~Supported patient's personal health goals ~ ~different music, dropped a lot of old friend, made new ones and support each other ~ ~better mood, less SI [facility] Start: 11-22-2021 End: 11-22-2021 Patient education based on identified need [facility] Start: 09-09-2021 COVID-19 Vaccine (3 - Booster for Pfizer series) COVID-19 Vaccine (3 - Booster for Pfizer series) [facility] Start: 09-04-2021 US Thyroid / Parathyroid (80823) [facility] Start: 08-23-2021 End: 08-23-2021 Admission to same day surgery center 08/23/2021 Surgery IP Unit [place] Randall MD [address] [place] [address] CARPAL TUNNEL RELEASE ENDOSCOPIC- POSSIBLE OPEN [facility] Comment on above: CARPAL TUNNEL RELEAS E ENDOSCOPIC- POSSIBLE OPEN Start: 08-23-2021 End: 08-23-2021 Ndsc wrst surg w/rls transvrs carpl ligm CARPAL TUNNEL RELEASE ENDOSCOPIC LEFT CARPAL TUNNEL SUNDROME 08/23/2021 3:20 PM EST [facility] Start: 08-23-2021 Subsequent hospital visit by physician 08/23/2021 Hospital Encounter IP Unit [place] Randall MD [address] [place] [address] [facility] Start: 08-16-2021 End: 08-16-2021 Patient encounter procedure 08/16/2021 Appointment Physical Therapy Joseph Pedroza PT [facility] Start: 08-13-2021 End: 08-13-2021 Patient encounter procedure 08/13/2021 Appointment Physical Therapy [facility] Start: 08-12-2021 End: 08-12-2021 Patient education based on identified need Discussed current self-care methods/coping skills. ~Validated and normalized patient's feelings while assisting process recent events. ~Discussed lifestyle changes to address chronic illness. ~Supported patient's personal health goals [facility] Start: 08-12-2021 HC visit, estab pt Medical E stablished Patient [facility] Work Phone: Start: 08-12-2021 End: 08-12-2021 Patient education based on identified need [facility] Start: 08-08-2021 End: 08-08-2021 Patient encounter procedure 08/08/2021 Appointment Physical Therapy [facility] Start: 08-06-2021 End: 08-06-2021 Patient encounter procedure 08/06/2021 Appointment Physical Therapy Re[facility] Start: 08-05-2021 End: 08-05-2021 Patient education based on identified need [facility] Start: 08-02-2021 End: 08-02-2021 Patient encounter procedure 08/02/2021 Appointment Physical Therapy Joseph Pedroza PT [facility] Start: 07-30-2021 End: 07-30-2021 Patient encounter procedure 07/30/2021 Appointment Physical Therapy [facility] Patel [facility] Start: 07-25-2021 End: 07-25-2021 Patient encounter procedure 07/25/2021 Appointment Physical Therapy Dl Kent PT [facility] Physical Therapy Start: 07-23-2021 End: 07-23-2021 Patient encounter procedure 07/23/2021 Appointment Physical Therapy Reza Patel [facility] Physical Therapy Start: 07-16-2021 DTaP,Tdap and Td Vaccines (7 - Td or Tdap) DTaP,Tdap and Td Vaccines (7 - Td or Tdap) [facility] Start: 07-16-2021 DTaP/Tdap/Td vaccine (7 - Td or Tdap) DTaP/Tdap/Td vaccine (7 - Td or Tdap) [facility] Start: 07-16-2021 DTaP/Tdap/Td vaccine (7 - Td) DTaP/Tdap/Td vaccine (7 - Td) [facility] Work Phone: Start: 07-12-2021 Depression Screen Depression Screen [facility] Start: 05-24-2021 End: 05-24-2021 Patient encounter procedure 05/24/2021 Appointment Physical Therapy Melany Emerson, PT [facility] Physical Therapy Start: 05-17-2021 End: 05-17-2021 Patient encounter procedure 05/17/2021 Appointment Physical Therapy Dl Kent PT [facility] Physical Therapy Start: 05-14-2021 End: 05-14-2021 Patient encounter procedure 05/14/2021 Appointment Physical Therapy Dl Kent PT [facility] Start: 05-10-2021 End: 05-10-2021 Patient encounter procedure 05/10/2021 Appointment Physical Therapy Dl Kent PT [facility] Start: 05-07-2021 End: 05-07-2021 Patient encounter procedure 05/07/2021 Appointment Physical Therapy Dl Kent PT [facility] Start: 05-02-2021 End: 05-02-2021 Patient encounter procedure 05/02/2021 Appointment Physical Therapy Reza Patel [facility] Physical Therapy Start: 04-30-2021 End: 04-30-2021 Patient encounter procedure 04/30/2021 Appointment Physical Therapy Dl Kent, PT [facility] Start: 04-25-2021 End: 04-25-2021 Patient encounter procedure 04/25/2021 Appointment Physical Therapy Reza [facility] Start: 04-24-2021 FQ visit, estab pt Medical E stablished Patient [facility] Work Phone: Start: 04-23-2021 End: 04-23-2021 Patient encounter procedure 04/23/2021 Appointment Physical Therapy Dl Kent, PT [facility] Start: 04-18-2021 Subsequent hospital visit by physician 04/18/2021 Hospital Encounter Physical Therapy Dl Kent, PT [facility] Start: 04-10-2021 FQ visit, estab pt Medical E stablished Patient [facility] Work Phone: Start: 04-10-2021 End: 04-10-2021 Patient education based on identified need [facility] Start: 03-27-2021 End: 03-27-2021 Patient education based on identified need [facility] Start: 03-27-2021 [facility] Work Phone: Comment on above: Note: Please make a referral to: Start: 03-06-2021 Influenza vaccination [facility] Start: 01-23-2021 End: 01-23-2021 Admission to same day surgery center 01/23/2021 Surgery IP Unit [place] Randall MD [address] [place] [address] [phone] CARPAL TUNNEL RELEASE ENDOSCOPIC [facility] Comment on above: CARPAL TUNNEL RELEAS E ENDOSCOPIC Start: 01-23-2021 Subsequent hospital visit by physician 01/23/2021 Hospital Encounter IP Unit [place] Randall MD [address] [place] [address] [phone] [facility] Start: 01-21-2021 End: 01-21-2021 Patient encounter procedure 01/21/2021 Office Visit Neurology Quita Figueroa MD [address] [place] [id number] [facility] NEUROLOGY Part [facility] Start: 12-27-2020 End: 12-27-2020 Office Visit 12/27/2020 Office Visit Pulmonology Jr Pedraza, DO 2[address] [facility] [address] [place], [place] [id number] [facility] [facility] OUTREACH PULM [facility] Start: 10-24-2020 End: 10-24-2020 Office Visit 10/24/2020 Office Visit Obstetrics and Gynecology Willie Tello MD [address] [place], [place] [id number] [facility] OBSTETRICS & GYNECOLOGY Start: 10-18-2020 End: 10-18-2020 Office Visit [facility] NEUROLOGY [facility] Start: 10-17-2020 End: 10-17-2020 Appointment 10/17/2020 Appointment Sleep Center [facility] Start: 10-16-2020 End: 10-16-2020 Office Visit 10/16/2020 Office Visit General Surgery Darinel Jackson MD [address] [place] [address] [facility] GENERAL SURGERY [facility] Start: 10-02-2020 Lipid 1996 panel [facility] Work Phone: Start: 09-27-2020 Other Diagnostic Test: [facility] Work Phone: Start: 09-25-2020 End: 09-25-2020 Patient education based on identified need [facility] Start: 09-25-2020 Medical Establ ished Patient [facility] Work Phone: Start: 09-24-2020 End: 09-24-2020 Office Visit 09/24/2020 Office Visit Obstetrics and Gynecology Flor Graves APRN - YASSINE [address] [place], [place] [id number] [facility]OLOG[facility] Start: 09-13-2020 End: 09-13-2020 Office Visit [facility] NEUROLOGY [facility] Start: 08-30-2020 End: 08-30-2020 Office Visit 08/30/2020 Office Visit Neurology Quita Figueroa MD [address] [place] [id number] [facility] NEUROLOGY [facility] Start: 08-28-2020 End: 08-28-2020 Patient education based on identified need [facility] Start: 08-28-2020 Medical Establ ished Patient [facility] Work Phone: Start: 08-24-2020 Pulmonary Func tion Test (PFT) [facility] Work Phone: Start: 08-13-2020 End: 08-13-2020 Office Visit 08/13/2020 Office Visit Obstetrics and Gynecology Willie Tello MD [address] [place] [address] [phone] [facility]OLOG[facility] Start: 08-07-2020 End: 08-07-2020 Appointment 08/07/2020 Appointment Pulmonary Function Testing [facility] PFT Start: 07-25-2020 End: 07-25-2020 Patient education based on identified need BHP introduced patient to HPWO integrated model of care. ~BHP offered active and supportive listening, normalized emotions and feelings, processed current stressors and explored coping and stress reducing skills. ~BHP discussed importanced of coping skills and postive supports. BHP discussed coping skills such as breathing and mindfulness and handouts on how to implement them. BHP discussed importance of counseling and provided list of resources in the area for patient to establish care [facility] Start: 07-25-2020 End: 07-25-2020 Patient education based on identified need [facility] Start: 07-25-2020 [facility] Work Phone: Comment on above: Note: Please make a referral to:Post covid Note: Please make a referral to: Start: 07-16-2020 Cervical cancer screen Cervical canc er screen [facility] Work Phone: Start: 07-16-2020 Screening for malign ant neoplasm of cervix Cervical cancer screen [place], [place] Start: 07-12-2020 End: 07-12-2020 Office Visit 07/12/2020 Office Visit Obstetrics and Gynecology Willie Tello MD [address] [place] [place] [address] [facility] Start: 05-16-2020 End: 05-16-2020 Office Visit 05/16/2020 Office Visit Obstetrics and Gynecology Willie Tello MD [address] [place] [address] [phone] [facility] Start: 04-18-2020 End: 04-18-2020 Office Visit 04/18/2020 Office Visit Obstetrics and Gynecology Willie Tello MD [address] [facility], [place] [phone] [facility] Start: 03-06-2020 [facility] Start: 11-16-2019 End: 11-16-2019 Hospital Encounter [facility] Comment on above: LAPAROSCOPY PELVISCO PY-POSSIBLE OPERATIVE Start: 11-14-2019 End: 11-14-2019 Office Visit 11/14/2019 Office Visit Obstetrics and Gynecology Flor Graves APRN - YASSINE [address] [place] [address] [phone] [facility] Start: 10-12-2019 Hospital Encounter 10/12/2019 Hospital Encounter IP Unit Willie Tello MD [address] [place] [address] [facility] Start: 10-10-2019 HIV screen HIV screen [facility] Work Phone: Comment on above: Postponed from 08/09 (Not Indicated) Start: 10-10-2019 Influenza vaccination Flu vaccine (# 1) [facility] [employer] Phone: Comment on above: Postponed from 03/06 (Not Indicated) Start: 09-26-2019 HPV vaccine (1 - Fem liz 2-dose series) HPV vaccine (1 - Female 2-dose series) [facility] [employer] Phone: Comment on above: Postponed from 08/09 (Not Indicated) Start: 08-29-2019 End: 08-29-2019 Ancillary Procedure [facility] Start: 08-23-2019 Varicella vaccine (1 of 2 - 2-dose childhood series) Varicella vaccine (1 of 2 - 2-dose childhood series) [facility] [employer] Phone: Comment on above: Postponed from 08/09 (Not Indicated) Start: 2014 Screening for malign ant neoplasm of cervix CERVICAL CANCER SCREENING DISCUSSION [facility] Start: 2012 Hepatitis B vaccine (1 of 3 - 19+ 3-dose series) Hepatitis B vaccine (1 of 3 - 19+ 3-dose series) [facility] Start: 2012 Third diphtheria, tetanus and acellular pertussis (DTaP) vaccination TDAP (ADULT) [facility] Start: 2011 Adult BMI Follow Up Plan Adult BMI Follow Up Plan [facility] Start: 2011 Hepatitis C screening Hepatitis C sc reen [facility] Start: 2011 Tetanus vaccination TETANUS [facility] Start: 2009 COVID-19 Vaccine (1 of 2) COVID-19 Vaccine (1 of 2) [facility] [employer] Phone: Start: 2009 COVID-19 Vaccine (1) COVID-19 Vaccin e (1) [facility] [employer] Phone: Start: 2008 HIV screen HIV screen [place], [place] Start: 2008 [facility] Start: 2006 Varicella vaccine (1 of 2 - 13+ 2-dose series) Varicella vaccine (1 of 2 - 13+ 2-dose series) [facility] Start: 2005 COVID-19 Vaccine (1) COVID-19 Vaccin e (1) [facility] Start: 2005 Depression Screen Depression Screen [facility] Start: 2004 HPV vaccine (1 - 2-d ose series) HPV vaccine (1 - 2-dose series) [place] Start: 1999 Pneumococcal 0-64 ye ars Vaccine (1 - PCV) Pneumococcal 0-64 years Vaccine (1 - PCV) [facility] Start: 1999 Pneumococcal 0-64 ye ars Vaccine (1 of 1 - PPSV23) Pneumococcal 0-64 years Vaccine (1 of 1 - PPSV23) [facility] Work Phone: Start: 1999 Pneumococcal 0-64 ye ars Vaccine (1 of 2 - PCV) Pneumococcal 0-64 years Vaccine (1 of 2 - PCV) [facility] Start: 1999 Pneumococcal 0-64 ye ars Vaccine (1 of 2 - PPSV23) Pneumococcal 0-64 years Vaccine (1 of 2 - PPSV23) [facility] Start: 1998 COVID-19 Vaccine (1) COVID-19 Vaccin e (1) [facility] Start: 1994 Varicella vaccine (1 of 2 - 2-dose childhood series) Varicella vaccine (1 of 2 - 2-dose childhood series) [facility] Start: 02-06-1994 COVID-19 VACCINE (#1) COVID-19 VACCI NE (#1) [facility] Start: 1993 Hepatitis B vaccine (1 of 3 - 3-dose series) Hepatitis B vaccine (1 of 3 - 3-dose series) [facility] Start: 1993 Hepatitis C antibody , confirmatory test HEPATITIS C VIRUS SCREENING [facility] Start: 1993 Hepatitis C screening Hepatitis C sc reen [facility] End: 09-13-2020 Ityku-3-Vbjheatsoam W/ Phenotype Asqsg-3-Hlvzqoipgde W/ Phenotype Lab Routine Family history of COPD (chronic obstructive pulmonary disease) 1 Occurrences starting 09/13/2020 until 09/13/2020 [employer] Phone: Comment on above: 1 Occurrences starti ng 09/13/2020 until 09/13/2020 Seqjj-1-Aysikyaqphu W/ Phenotype Dexfp-1-Rzzerappywe W/ Phenotype Lab Routine Family history of COPD (chronic obstructive pulmonary disease) 09/13/2020 1:37 PM [employer] Phone: End: 09-13-2020 B. Burgdorferi Antibodies B. Burgdorferi Antibodies Lab Routine Paresthesia of left upper and lower extremity 1 Occurrences starting 09/13/2020 until 09/13/2020 [employer] Phone: Comment on above: 1 Occurrences starti ng 09/13/2020 until 09/13/2020 End: 01-10-2021 Bacteria identified in Urine by Culture Urine Culture Microbiology STAT One Time for 1 Occurrences starting 01/10/2021 until 01/10/2021 [employer] Phone: Comment on above: One Time for 1 Occur rences starting 01/10/2021 until 01/10/2021 Bacteria identified in Urine by Culture Urine Culture Microbiology STAT 01/11/2021 12:38 AM EDT [employer] Phone: End: 10-17-2020 Baseline Diagnostic Sleep Study Baseline Diagnostic Sleep Study Sleep Center Routine One Time for 1 Occurrences starting 10/17/2020 until 10/17/2020 [employer] Phone: Comment on above: One Time for 1 Occur rences starting 10/17/2020 until 10/17/2020 CT CHEST PULMONARY EMBOLISM W CONTRAST CT CHEST PULMONARY EMBOLISM W CONTRAST Imaging STAT 07/17/2020 4:17 PM [email or web address] [place] End: 08-27-2020 Cytopathology procedure, preparation of smear, genital source PAP SMEAR Lab Routine Women's annual routine gynecological examination 1 Occurrences starting 08/27/2020 until 08/27/2020 [employer] Phone: Comment on above: 1 Occurrences starti ng 08/27/2020 until 08/27/2020 EKG 12 Lead EKG 12 Lead ECG Routine 07/17/2020 3:09 PM EST [employer] [place] EKG 12 Lead EKG 12 Lead ECG Routine 07/06/2022 2:14 PM EST [employer] Phone: EKG 12 Lead EKG 12 Lead ECG STAT 07/21/2022 7:57 PM EST [employer] Phone: EKG 12 Lead EKG 12 Lead ECG STAT 10/17/2022 11:25 AM EDT [employer] Phone: EKG 12 Lead EKG 12 Lead ECG STAT 06/21/2023 7:13 PM EST [employer] End: 08-30-2020 Alexis-Ardon Virus VCA Antibody Panel Alexis-Ardon Virus VCA Antibody Panel Lab Routine Paresthesia of both hands Weakness of both arms 1 Occurrences starting 08/30/2020 until 08/30/2020 [employer] Phone: Comment on above: 1 Occurrences starti ng 08/30/2020 until 08/30/2020 Alexis-Ardon Virus V CA Antibody Panel Alexis-Ardon Virus VCA Antibody Panel Lab Routine Paresthesia of both hands Weakness of both arms 08/30/2020 9:32 AM [employer] Phone: Initiate Oxygen Ther apy Protocol Initiate Oxygen Therapy Protocol Respiratory Care Routine Daily until discontinued starting 11/16/2019 [email or web address], MARIAH Comment on above: Daily until disconti nued starting 11/16/2019 End: 09-13-2020 Lyme Ab Lyme Ab Lab Routine Once for 1 Occurrences starting 09/13/2020 until 09/13/2020 [employer] Phone: Comment on above: Once for 1 Occurrenc es starting 09/13/2020 until 09/13/2020 Lyme Ab Lyme Ab Lab Rout ine 09/13/2020 1:37 PM EST [employer] Phone: Nebulizer therapy HHN Treatment Respiratory Care Routine Every 6hr As Needed until discontinued starting 07/09/2020 [employer]IA[employer] Comment on above: Every 6hr As Needed until discontinued starting 07/09/2020 Oxygen therapy [[facility] Data Set] Initiate Oxygen Therapy Protocol Respiratory Care Routine Daily until discontinued starting 01/23/2021 [employer] Phone: Comment on above: Daily until disconti nued starting 01/23/2021 Pulse oximetry, continuous Pulse oximetry, continuous Respiratory Care Routine Every 4hr until discontinued starting 11/16/2019 [employer] Comment on above: Every 4hr until disc ontinued starting 11/16/2019 End: 12-10-2022 Tilt table test Tilt table test Cardiac Services Routine Chest pressure Heart palpitations PVC (premature ventricular contraction) Lightheaded 1 Occurrences starting 12/10/2022 until 12/10/2022 DAVIE PAUL [employer] Phone: Comment on above: 1 Occurrences starti ng 12/10/2022 until 12/10/2022 End: 02-25-2021 VL DUP LOWER EXTREMITY VENOUS LEFT VL DUP LOWER EXTREMITY VENOUS LEFT Imaging Routine Once for 1 Occurrences starting 02/25/2021 until 02/25/2021 [employer] Phone: Comment on above: Once for 1 Occurrenc es starting 02/25/2021 until 02/25/2021 VL DUP LOWER EXTREMI TY VENOUS LEFT VL DUP LOWER EXTREMITY VENOUS LEFT Imaging STAT 02/25/2021 5:27 PM EDT [employer] Phone: Immunizations Immunization Date Immunization Notes Care Provider Bubba lucero 07-15-2021 1st Dose PFIZER COVID-19 Vaccine Yohan Jaems PROFESSIONAL PROGRAMMER ANALYST Work Phone: [facility] 06-24-2021 1st Dose PFIZER COVID-19 Vaccine Yohan James PROFESSIONAL PROGRAMMER ANALYST Work Phone: [facility] 07-16-2011 tetanus toxoid, redu ton diphtheria toxoid, and acellular pertussis vaccine, adsorbed Hussein Geovanna [facility] [employer] 02-25-1999 diphtheria, tetanus toxoids and acellular pertussis vaccine, unspecified formulation [employer] Phone: 02-25-1999 measles, mumps and rubella virus vaccine [employer] Phone: 02-25-1999 trivalent poliovirus vaccine, live, oral [employer] Phone: 02-09-1995 diphtheria, tetanus toxoids and pertussis vaccine [email or web address] Phone: 02-09-1995 trivalent poliovirus vaccine, live, oral [employer] Phone: 11-21-1994 measles, mumps and rubella virus vaccine [email or web address] Phone: 02-10-1994 diphtheria, tetanus toxoids and pertussis vaccine [facility] [employer] Phone: 1993 diphtheria, tetanus toxoids and pertussis vaccine [id number] Phone: 1993 haemophilus influenz ae type b vaccine, conjugate unspecified formulation [employer] Phone: 1993 trivalent poliovirus vaccine, live, oral [facility] [employer] Phone: 1993 diphtheria, tetanus toxoids and pertussis vaccine [employer] Phone: 1993 haemophilus influenz ae type b vaccine, conjugate unspecified formulation [employer] Phone: 1993 trivalent poliovirus vaccine, live, oral [employer] Phone: 1993 haemophilus influenz ae type b vaccine, conjugate unspecified formulation [employer] Phone: 1993 haemophilus influenz ae type b vaccine, conjugate unspecified formulation [email or web address] Phone: Payers Date Payer Category Payer Medicaid HMO [employer] [id number] 2021 Unknown [id number] [id number] 2021 Unknown 2018 Unknown [id number] 2018 Unknown [id number] [id number] [id number] 1993 Unknown [id number] 2.16.840.1.288331.3.579.2.196 1993 Unknown [id number] 2.16.840.1.365100.3.579.2.594 1993 Unknown [id number] 2.16.840.1.747887.3.579.2.594 1993 Unknown [id number] 2.16.840.1.069009.3.579.2.594 1993 Unknown [id number] 2.16.840.1.801532.3.579.2.594 1993 Unknown [id number] 2.16.840.1.173537.3.579.2.1286 1993 Unknown [id number] 2.16.840.1.400906.3.579.2.1286 1993 Unknown [id number] 2.16.840.1.186226.3.579.2.174 1993 Unknown [id number] 2.16.840.1.307926.3.579.2.174 1993 Unknown [id number] 2.16.840.1.662265.3.579.2.173 1993 Unknown [id number] 2.16.840.1.836298.3.579.2.173 1993 Unknown [id number] 2.16.840.1.998660.3.579.2.173 1993 Unknown [id number] 2.16.840.1.493474.3.579.2.173 1993 Unknown [id number] 2.16.840.1.570662.3.579.2.173 1993 Unknown [id number] 2.16.840.1.790595.3.579.2.173 1993 Unknown [id number] 2.16.840.1.996661.3.579.2.173 1993 Unknown [id number] 2.16.840.1.088877.3.579.2.173 1993 Unknown [id number] 2.16.840.1.643659.3.579.2.175 1993 Unknown [id number] 2.16.840.1.612893.3.579.2.1286 1993 Unknown [id number] 2.16.840.1.508826.3.579.2.1286 1993 Unknown [id number] 2.16.840.1.585551.3.579.2.1286 1993 Unknown [id number] 2.16.840.1.528136.3.579.2.1286 1993 Unknown [id number] 2.16.840.1.813474.3.579.2.1286 1993 Unknown [id number] 2.16.840.1.885603.3.579.2.1286 1959 Medicaid [id number] 1959 Unknown [id number] Social History Date Type Detail Facility Start: 08-22-2019 End: 07-10-2023 Tobacco smoking status NHIS Never smoker [email or web address] Start: 08-22-2019 End: 10-26-2023 Alcohol intake Current drinker of alcohol (finding) [email or web address] Work Phone: Start: 11-08-2018 Alcohol Comment rare [employer] Work Phone: Start: 1995 Sex Assigned At Not on file [employer] Work Phone: Exposure to SARS-CoV -2 (event) Unable to assess [place] Start: 03-20-2020 End: 07-10-2023 Tobacco use and exposure Never used [employer] Start: 1993 Sex Assigned At Female M [employer] Start: 11-02-2021 End: 10-17-2022 Exposure to SARS-CoV-2 (event) Not sure [place] Assertion Currently not sexually active (finding) [facility] Assertion Gender identity finding (finding) [facility] Assertion Finding of sexua l orientation (finding) [facility] Tobacco smoking status Unknown i f ever smoked [facility] Work Phone: Assertion Emotional stress (finding) [facility] Assertion Social drinker (finding) [facility] Start: Non-smoker [place] [employer] Start: 02-12-2022 End: 09-14-2024 Alcohol intake Ex-drinker (finding) [facility] Assertion Sexually active (finding) [facility] Assertion [facility] Start: 06-26-2022 End: 07-06-2022 Exposure to SARS-CoV-2 (event) Yes [employer] Start: 07-14-2022 End: 01-22-2023 History SDOH Alcohol Frequency 1 [employer] Work Phone: Start: 10-17-2022 End: 01-22-2023 History SDOH Alcohol Std Drinks 0 [employer] Work Phone: Assertion Lives with famil y (finding) [facility] Assertion Full-time employ ment (finding) [facility] Assertion History of disor neel (situation) [facility] Assertion Finding relating to sexual activity (finding) [facility] Assertion Exposure to poll ution (event) [facility] Start: 06-21-2023 End: 06-09-2024 History of Social function [employer] Start: 06-21-2023 End: 06-09-2024 Alcohol Use Disorder Identification Test - Consumption [AUDIT-C] [employer] How often to you hav e a drink containing alcohol? Monthly or less [employer] How many standard dr inks containing alcohol do you have on a typical day? 1 or 2 [employer] How often do you hav e 6 or more drinks on 1 occasion? Never [employer] Start: 03-19-2020 Gender identity Identifies as female gender (finding) [employer] Start: 03-19-2020 Sexual orientation Heterosexua l (finding) [employer] Assertion Prescription of drug (procedure) [facility] Assertion Changed job (finding) [facility] How hard is it for y ou to pay for the very basics like food, housing, medical care, and heating [facility] Start: 07-25-2016 Sex Female (finding) [facility] NEGATED: Highlighted row Assertion Current drinker of alcohol (finding) [facility] NEGATED: Highlighted row Assertion Finding relating to drug misuse behavior (finding) [facility] NEGATED: Highlighted row Assertion Exposure to pollution (event) [facility] NEGATED: Highlighted row Assertion Tobacco user (finding) [facility] NEGATED: Highlighted row Assertion [facility] NEGATED: Highlighted row Assertion Sexually active (finding) [facility] NEGATED: Highlighted row Assertion Misuses drugs (finding) [facility] [place] [facility] Procedure Code Equipment Code Equipment Origin al Text Equipment Identifier Dates Assure ID Safety Pen [place] [id number] X 5 MM Miscellaneous (not specified) [id number] Start: 06-24-2023 Mental Status Date Assessment Result Facility Cognitive function Cognitive fun ctioning was normal Cognitive function finding (finding) [facility] Work Phone: Clinical Notes 07-25-2020 to 09-27-2024 AVILA Kinney - 09/14/2024 8:00 AM EDTPatient InstructionsAttachmentsTHOM Vidales - 2024 10:00 AM THOM Schreiber - 06/09/2024 2:20 PM EST Note Date & Type Note Facility 09-27-2024 Note Orthopedic Surgery Subjective 08/18/2024 Hip Arthroscopy With Labrum Debridement - Left and It Band Release - Left 09/27/24 Oswald is doing fantastic, no pain. She may follow-up on a as needed basis. History Past Surgical History: Procedure Laterality Date CARPAL TUNNEL RELEASE CHOLECYSTECTOMY HYSTERECTOMY total TRIGGER FINGER RELEASE Past Medical History: Diagnosis Date Anxiety Arthritis Asthma CTS (carpal tunnel syndrome) Depression Fibromyalgia, primary Fracture of wrist Joint pain left hip pain Lumbosacral disc disease Neuroma of foot PONV (postoperative nausea and vomiting) Spinal stenosis Thoracic disc disease Trigger finger Objective Exam: - Incision clean, dry, and intact. No drainage or erythema - Reasonable post-surgical ROM, swelling, and tenderness - Sensation grossly intact distally - Brisk capillary refill Assessment/Plan Oswald Cox is a 29 y.o. year old female s/p Hip Arthroscopy With Labrum Debridement - Left and It Band Release - Left (08/18/2024) [facility] 09-26-2024 Note Psych Progress Note Time In: 1020 Time Out: 1050 HPI Present at Visit: Oswald, provider, [employer] student Location of Service: Office Review of Systems Constitutional: Negative. Respiratory: Negative for cough and chest pain. Cardiovascular: negative for chest pain and heart palpitations. Psychiatric/Behavioral: dysphoric mood, anxiety 29-year-old female presents for medication management. At the last appointment we started her on trazodone due to poor sleep. She has been waking up every 2 or 3 hours and feels very tired during the day. She was tested for sleep apnea about 5 years ago and this problem has arisen since she was tested last. We discussed ordering a home sleep test to rule in or rule out sleep apnea. Sister the trazodone she has not noticed any improvement in her sleep. She was previously on Ambien and prazosin. We discussed restarting Ambien for treatment for insomnia. We will follow up in 6 weeks. Reports Lopez is working well to control mood symptoms. Denies depression or martell. Denies side effects to medication. No other concerns today. Current Presenting Symptoms/Problems: Mood: Good concentration, anhedonia, dysphoric mood, impulsivity, No decreased need for sleep, No crying spells, and No excessive excitement Anxiety: No agoraphobia, No compulsions, and No generalized worry Trauma/Abuse: No abuse reported and No additional trauma noted Cognition: No agitation and No paranoia Sleep: No insomnia Lifestyle Habits: Structured routine of day Medication Compliance: Greater than 90% Onset/Timing: chronic Context: stable Severity: moderate Therapeutic Interventions Provided: Assessed Mood and Assessed Thinking Response to Intervention: Agreeable Overall Assessment of Progress: stable OARRS: No concerns noted MENTAL STATUS EXAMINATION Level of Alertness: alert Appearance: appears stated age, clean, dressed appropriately, healthy, neat, and well-groomed Eye Contact: normal Build/Stature: normal weight and normal height Posture: good posture Muscle Tone: normal Gait and Ambulation: coordinated Station: did not assess Attitude Toward Examiner: cooperative Behavior: normal Speech: clear and coherent reciprocal Language: expressive normal Mood: euthymic Affect:appropriate Thought Process: coherent, goal-directed, and linear Thought Content: intact, no delusions, no depersonalization, no derealization, no hallucinations, no homicidal ideation, no illusions, no preoccupations, and no suicidal ideation Orientation: oriented to person, oriented to place, and oriented to time Attention and Concentration: able to appropriately shift attention, able to focus, and able to sustain attention Memory: able to comment on events, conversation content appropriate, and intact Abstraction: Proverbs: abstract Abstraction: Object Similarities: abstract Estimated Intelligence: average Insight: intact Judgement: social judgment intact and test judgment intact Reliability: reliable Diagnoses of Moderate episode of recurrent major depressive disorder (CMS/HCC), JAIMIE (generalized anxiety disorder), PTSD (post-traumatic stress disorder), and Primary insomnia were pertinent to this visit. Plan: Medication Conitnue vraylar 1.5mg Start trazodone 50mg hs ISP due within the next 4 visits Labs - up to date RTC in 6 weeks This note was dictated by speech recognition. Minor errors in butadiene converter operator may be present. Use [employer], crisis care service ([phone]), your local [facility] crisis hotline, [employer] suicide prevention lifeline ( ) or the nearest emergency room in the event of a crisis. Use 24 hour access at [facility]: if in crisis after regular business hours you may call the hospital timber incisor operator at [phone] and ask to speak with the energy operations vice president on-call. You may reach out to the provider by sending a message on [email or web address] or calling the office ([phone]). The provider will respond back within 1-2 business days. Clinic rules include the no show policy: termination from the clinic can be the result of missing 2 appointments in a row or 3 appointments in any 12 month period through either no-shows or cancellations with less than 24 hours notice. Abstinence from alcohol and drugs is important.These substances may have significant negative effects on cognitive and emotional functioning, and there are interactions between these substances and prescribed medications. Treatment with psychotropic medications requires regular monitoring and follow up to ensure safety and effectiveness.It is important to attend regularly scheduled appointments and to keep in contact with providers as needed between scheduled follow up appointments If you are being prescribed a controlled substance, you must be seen at least every 3 months.. If you are being prescribed a controlled substance and miss an appointment, the provider may not fill controlled (more content not included)... [facility] 09-14-2024 History of Present illness Narrative Images from the original note were not included. [id number] [id number] Date of Service: 09/14/2024 Thank you for the referral to evaluate Oswald Cox for R52, G89.29 (ICD-10-CM) - Chronic generalized pain. This is a new patient and is seen at the request of JANETTE K GLANZ, STRATIGRAPHER-PROFESSIONAL PROGRAMMER ANALYST. Chief Complaint: Widespread generalized pain SUBJECTIVE: Oswald Cox is a 29 y.o. female with PCOS , class III obesity who presents today for evaluation of R52, G89.29 (ICD-10-CM) - Chronic generalized pain. Widespread generalized pain is the primary concern today. Morning times are worse with symptoms and sometimes months are worse in terms of not being able to see if due to pain. Symptoms are present for over 2 years and she rates the severity at 6 to 8/10. She describes it as very achy and feeling like pins and needles sensation in her both upper and lower extremities. She does attest to traumatic childhood and young adulthood and suffering from PTSD. She is in counseling and sees a psychiatrist. She does same medical marijuana helps with symptoms and cold weather makes the symptoms worse. Fingers do feel swollen at times. She has history of left hip labral tear in the summer of 2023 for which she underwent surgery these August 2024 for labral repair. She is in therapy for the same at this time She has tried gabapentin, Lyrica, Flexeril and meloxicam in the past but it was not tried in combination and those medications were tried individually. She did not have any side effects with them but those were not helpful in improving her symptoms. She denies any personal or family history of psoriasis, gout, lupus, rheumatoid arthritis Current Outpatient Medications Medication Sig Dispense Refill albuterol (PROVENTIL HFA;VENTOLIN HFA) 90 mcg/actuation inhaler Inhale 2 puffs every 6 (six) hours as needed for wheezing. ipratropium-albuteroL (DUONEB) 0.5 mg-3 mg(2.5 mg base)/3 mL nebulizer Inhale 3 mL by nebulization 4 (four) times a day. montelukast (SINGULAIR) 10 mg tablet Take 1 tablet (10 mg total) by mouth nightly. VRAYLAR 1.5 mg capsule hpuerycbeiiggjq-jfonwvwgl-XN 2-30-10 mg/5 mL syrup Take 5 mL by mouth 3 (three) times a day as needed for congestion, cough or allergies. budesonide-formoteroL (SYMBICORT) 160-4.5 mcg/actuation inhaler Inhale 2 puffs in the morning and 2 puffs before bedtime. busPIRone (BUSPAR) 10 mg tablet Take 1 tablet (10 mg total) by mouth 3 (three) times a day. celecoxib (CeleBREX) 200 mg capsule Take 1 capsule (200 mg total) by mouth in the morning and 1 capsule (200 mg total) before bedtime. 60 capsule 2 estradioL (ESTRACE) 1 mg tablet Take 1 tablet (1 mg total) by mouth in the morning. gabapentin (NEURONTIN) 100 mg capsule Take 1 capsule (100 mg total) by mouth once daily for 7 days, THEN 2 capsules (200 mg total) once daily for 7 days, THEN 3 capsules (300 mg total) once daily for 90 days. 291 capsule 0 lidocaine (LIDODERM) 5 % Place 1 patch on the skin daily. Remove & Discard patch within 12 hours or as directed by MD 30 patch 0 liraglutide, weight loss, (SAXENDA) 3 mg/0.5 mL (18 mg/3 mL) pen injector Inject 0.6 mg under the skin once daily. PARoxetine (PAXIL) 30 mg tablet Take 1 tablet (30 mg total) by mouth every morning. semaglutide, weight loss, (WEGOVY) 0.25 mg/0.5 mL pen injector Inject 0.5 mL (0.25 mg total) under the skin every 7 days. (Patient not taking: Reported on 09/14/2024) 2 mL 3 tiZANidine (ZANAFLEX) 2 mg tablet One tab at 8:00 p.m.each night 30 tablet 2 No current facility-administered medications for this visit. reviewed. Patient Active Problem List Diagnosis Acquired absence of other specified parts of digestive tract Allergic contact dermatitis due to plants, except food COVID-19 virus infection Heart murmur Left hip impingement syndrome Obesity, morbid, BMI 40.0-49.9 ([facility]) Pelvic pain in female Polycystic ovarian syndrome Tear of left acetabular labrum reviewed. Past Surgical History: Procedure Laterality Date ADENOIDECTOMY 2007 CHOLECYSTECTOMY 2016 HYSTERECTOMY TONSILLECTOMY reviewed. Social History Tobacco Use Smoking status: Never Smokeless tobacco: Never Vaping Use Vaping status: Every Day Substances: THC Devices: Disposable Substance Use Topics Alcohol use: Not Currently Drug use: Yes Frequency: 7.0 times per week Types: Marijuana Comment: Medical reviewed. Past Medical History: Diagnosis Date Anemia Anxiety Arthritis Asthma Back pain COPD (chronic obstructive pulmonary disease) ([facility]) Depression Heart murmur Injury of back Jaundice 1993 Jaundice at Obesity Panic disorder reviewed. Social History Social History Narrative Not on file reviewed Family History Problem Relation Age of Onset Arthritis Mother Asthma Mother Depression Mother Hypertension Mother Mental illness Mother Bipolar disorder Alcohol abuse Father COPD Father Diabetes Father Heart disease Father Hypertension Father Arthritis Maternal Grandmother Asthma Maternal Grandmother COPD Maternal Grandmother Diabetes Maternal Grandmother Mental illness Maternal Grandmother Bipolar disorder Stroke Maternal Grandmother At 64 Early Paternal Grandmother Pulmonary Embolism at 45 Arthritis Sister Depression Sister Diabetes Sister Hypertension Sister Mental illness Sister Borderline personality disorder Miscarriages / Stillbirths Sister Stroke Sister At 18 Arthritis Maternal Aunt Breast cancer Paternal Aunt Passed in 2022 from metastatic breast cancer Depression Brother Mental illness Brother Schizophrenia Ovarian cancer Maternal Aunt reviewed. No Known Allergies reviewed. The following portions of the patient's history were reviewed and updated as appropriate: allergies, current medications, past family history, past medical history, past social history, past surgical history and problem list. REVIEW OF SYSTEMS: CONSTITUTIONAL: Admits: [] Weight Loss [] Fever [x] Frequent Night Sweats [x]Fatigue: 2/3 OPHTHALMOLOGIC: Admits: [] Glaucoma [] History or Current Inflammatory Eye Disease [] Cataracts ENT: Admits: [] Oral/Nasal Ulcers [] epistaxis [] Recurrent Sinusitis [x] Dry Eyes [] Dry mouth CARDIOVASCULAR: Admits: [] Chest pain [] Pericarditis/Pleuritis [] Palpitations [] Edema RESPIRATORY: Admits: [] hemoptysis [] Dyspnea on Exertion [] Cough [] Wheezing GASTROINTESTINAL: Admits: [] Bloody Stool [] Diarrhea [] Vomitting GENITOURINARY: Admits: [] Blood in urine [] Genital Ulcers [] Burning/pain with urination MUSCULOSKELETAL: Admits: [] Muscle Pain [x] Joint Pain INTEGUMENTARY: Admits: [] Skin changes [] Sclerodactyly [] Raynauds [] Photosensitivity [] Alopecia NEUROLOGIC: Admits: [x] Recurrent Headaches [x] Limb Weakness: hands and feet [x] Numbness/Tingling: hands and feet PSYCHIATRIC: Admits: [x] Insomnia [x] Depression [x] Anxiety ENDOCRINE: Admits: [] Thyroid abnormalities HEMATOLOGY/LYMPH: Admits: [] Notable Swollen Lymph Nodes [] History of Cytopenias [] Bruising tendency [] History of DVT/PE Miscarriages- three , very early All non checked boxes, patient denies. All other 10 point ROS reviewed and negative. PHYSICAL EXAMINATION: Constitutional: BP 120/74 Pulse 72 Resp 18 Ht 175.3 cm (5' 9 ) Wt (!) 150.6 kg (332 lb) BMI 49.03 kg/m : reviewed Comfortable, pleasant, no acute distress Eyes: Conjunctiva clear and moist, eyelids without lesions. Extraocular movements fully intact. Ears/Nose/Mouth/Throat: External inspection of ears/nose is normal - no scars, lesions, masses No oral ulcers or lesions on mucosa of inner mouth, tongue. Neck: Symmetrical, tongue midline, no masses, no lymphadenopathy, no thyromegaly Respiratory: Inspiratory and expiratory effort normal. Clear to auscultation bilaterally. No crackles or wheezes. Cardiovascular: Palpation of heart reveals normal PMI. Auscultation: regular rate rhythm, no murmurs/rubs/gallops. Carotid arteries symmetric and 2+. No edema of extremities Gastrointestinal: Soft, nontender, bowel sounds in all quadrants. No hepatosplenomegaly on palpation. Lymphatic: No lymphadenopathy in neck Neurologic: Facial muscles symmetric and of normal strength. Tongue is midline. Dermatologic: Inspection and palpation of skin and subcutaneous tissue of all four extremities without rashes Nailfold capillary exam normal Psychiatric: Normal affect. Judgement/insight intact. Musculoskeletal: bilaterally symmetrical tender trigger points , no synovitis Neck: Full ROM. no swelling, No tenderness, Shoulder: Bilateral full active ROM. no swelling, No tenderness, Elbows: Full ROM. no swelling, No tenderness, Wrists: Full ROM. no swelling, No tenderness, Hands: Full ROM. no swelling, No tenderness, Hips: Normal ROM. No swelling, No tenderness, Knees: Normal ROM, no swelling, No tenderness, Feet: Full ROM. no swelling, No tenderness, Ankles: Normal ROM,no swelling, No tenderness, Spine: no tenderness throughout spine, no sacroiliac joint tenderness Physical Exam Labs & Imaging: Labs and Imaging reviewed and discussed with the patient during the visit. No results found for: RF , C3 , C4 Lab Results Component Value Date WBC 10.0 06/09/2024 HGB 13.8 06/09/2024 HCT 41.3 06/09/2024 MCV 85 06/09/2024 PLT 306 06/09/2024 Lab Results Component Value Date CREATININE 0.65 06/09/2024 BUN 13 06/09/2024 K 4.2 06/09/2024 CL 103 06/09/2024 CO2 32 06/09/2024 Lab Results Component Value Date ALT 24 06/09/2024 AST 18 06/09/2024 ALKPHOS 75 06/09/2024 No results found for: SEDRATE No results found for: CRP No results found. ASSESSMENT/PLAN: Oswald Cox is a 29 y.o. female patient with a history of PCOS, class III obesity who presents for evaluation of R52, G89.29 (ICD-10-CM) - Chronic generalized pain. Patient established care with me on 09/14/2024 ICD-10-CM 1. Fibromyalgia M79.7 2. Encounter for medication counseling Z71.89 3. Chronic generalized pain R52 G89.29 No orders of the defined types were placed in this encounter. Overall impression and plan I explained to patient that there is no evidence of synovitis/synovial hypertrophy during today's exam. The patient does not have a history of oral ulcers, nasal ulcers, alopecia, skin rash, photosensitivity, raynaud's, ocular or oral sicca, history of cardiovascular disease, or renal disease. Based on history, ros, clinical exam the likelihood of inflammatory arthritis/or systemic autoimmune disorder is low at this time. Should the symptoms change we may consider repeating labs, monitor symptoms at this time #Fibromyalgia The patient has widespread pain, on both sides of the body, above and below the waist. Patient has multiple associated symptoms with fibromyalgia that include chronic fatigue, chronic sleep disturbances, cognitive disturbances I spent time counseling the patient on fibromyalgia. I explained to the patient that fibromyalgia is a disorder characterized by widespread musculoskeletal pain, accompanied by fatigue, sleep, memory in mood issues. In general it is thought that fibromyalgia symptoms are secondary to overactive nerves, which amplify painful sensations by the way the brain processes the pain signals. I told the patient on functional brain MRIs, we have also seen that fibromyalgia patients have increased blood flow to the somatosensory cortex. I told the patient the good news, is that this syndrome cannot cause any organ dysfunction, and does not lead to accelerated osteoarthritis. Unfortunately, the bad news, is that it can disrupt quality of the life significantly. Main stays of treatment include the following -daily relaxing exercise, start with 10-15 minutes a day and slowly build up -good sleep hygiene -avoid alcohol, cigarettes -practice eating mostly whole foods plant based diet -5-10 minutes of meditation daily -stress management -plan relaxing activities with family and friends Literature on fibromyalgia provided Treatment -Celebrex 200 mg b.i.d. -Gabapentin titrate up from 100 mg to 300 mg -Tizanidine 2 mg at bedtime Referral None today Follow-up 11-12 weeks Total time spent with the patient face to face was 40 minutes which included obtaining and reviewing history, performing an exam, educating and counseling the patient, communicating test results to the patient. Preparing to see the patient (reviewing all results, history, medications, my office notes, other physician notes), ordering tests/medications/referrals, documenting in the patient's health record time spent was 15 minutes This note was created with the assistance of a speech recognition program. While intending to generate a timely document that accurately reflects the content of the visit, no guarantee can be provided that every grammatical or spelling mistake has been or will be identified or corrected. Thank you for your understanding. [facility] Lisa Wade PA-C [address] [place] [address] Office [phone] AVILA Kinney 09/14/24 0911 documented in this encounter [facility] [employer] [facility] 09-14-2024 Instructions AVILA Kinney - 09/14/2024 8:00 AM EDT Fibromyalgia information from the [facility]. Other information can be found at [email or web address] Fibromyalgia is a common health problem that causes widespread pain and tenderness (sensitive to touch). The pain and tenderness tend to come and go, and move about the body. Most often, people with this chronic (long-term) illness are fatigued (very tired) and have sleep problems. It can be hard to diagnose fibromyalgia. FAST FACTS Fibromyalgia affects two to four percent of people, mostly women. Doctors diagnose fibromyalgia based on all the patient's relevant symptoms (what you feel), no longer just on the number of tender points. There is no test to detect this disease, but you may need lab tests or X-rays to rule out other health problems. Though there is no cure, medications can relieve symptoms. Patients also may feel better with proper self-care, such as exercise and getting enough sleep. WHAT IS FIBROMYALGIA? Fibromyalgia is a chronic health problem that causes pain all over the body and other symptoms. Other symptoms that patients most often have are: Tenderness to touch or pressure affecting joints and muscles Fatigue Sleep problems (waking up unrefreshed) Problems with memory or thinking clearly Some patients also may have: Depression or anxiety Migraine or tension headaches Digestive problems: irritable bowel syndrome (commonly called IBS) or gastroesophageal reflux disease (often referred to as GERD) Irritable or overactive bladder Pelvic pain Temporomandibular disorder--often called TMJ (a set of symptoms including face or jaw pain, jaw clicking and ringing in the ears) Symptoms of fibromyalgia and its related problems can vary in intensity, and will wax and wane over time. Stress often worsens the symptoms. WHAT CAUSES FIBROMYALGIA? The causes of fibromyalgia are unclear. They may be different in different people. Fibromyalgia may run in families. There likely are certain genes that can make people more prone to getting fibromyalgia and the other health problems that can occur with it. Genes alone, though, do not cause fibromyalgia. There is most often some triggering factor that sets off fibromyalgia. It may be spine problems, arthritis, injury, or other type of physical stress. Emotional stress also may trigger this illness. The result is a change in the way the body talks with the spinal cord and brain. Levels of brain chemicals and proteins may change. For the person with fibromyalgia, it is as though the volume control is turned up too high in the brain's pain processing centers. WHO GETS FIBROMYALGIA? Fibromyalgia is most common in women, though it can occur in men. It most often starts in middle adulthood, but can occur in the teen years and in old age. Younger children can also develop widespread body pain and fatigue. You are at higher risk for fibromyalgia if you have a rheumatic disease (health problem that affects the joints, muscles and bones). These include osteoarthritis, lupus, rheumatoid arthritis, or ankylosing spondylitis. HOW IS FIBROMYALGIA DIAGNOSED? A doctor will suspect fibromyalgia based on your symptoms. Doctors may require that you have tenderness to pressure or tender points at a specific number of certain spots before saying you have fibromyalgia, but they are not required to make the diagnosis (see the Box). A physical exam can be helpful to detect tenderness and to exclude other causes of muscle pain. There are no diagnostic tests (such as X-rays or blood tests) for this problem. Yet, you may need tests to rule out another health problem that can be confused with fibromyalgia. Because widespread pain is the main feature of fibromyalgia, health care providers will ask you to describe your pain. This may help tell the difference between fibromyalgia and other diseases with similar symptoms. For instance, hypothyroidism (underactive thyroid gland) and polymyalgia rheumatica sometimes mimic fibromyalgia. Yet, certain blood tests can tell if you have either of these problems. Sometimes, fibromyalgia is confused with rheumatoid arthritis or lupus. But, again, there is a difference in the symptoms, physical findings and blood tests that will help your health care provider detect these health problems. Unlike fibromyalgia, these rheumatic diseases cause inflammation in the joints and tissues. HOW IS FIBROMYALGIA TREATED? There is no cure for fibromyalgia. However, symptoms can be treated with both medication and non-drug treatments. Many times the best outcomes are achieved by using multiple types of treatments. 1. Medications: We recommend first trying a tricyclic antidepressant such as cyclobenzaprine (Flexeril) or amitriptyline (Elavil) in patients who have not yet had an adequate trial of this class of medications. We prefer Flexeril. Although Flexeril is generally marketed as a muscle relaxant, the similarities in chemical structure to the tricyclic antidepressants make it a very useful medication to treat pain and it can also be helpful for treating sleep disturbance. Begin Flexeril at a dose of 5 mg 2-3 hours before bedtime. Taking the medication in this fashion can help decrease morning grogginess. Increase the dose by 5 mg every week as tolerated until a total dose of 20 mg is achieved. Increased fluid intake may decrease the incidence of dry mouth and constipation. Patients should also be warned about potential weight gain. Amitriptyline (Elavil) can be used similarly in doses starting at 10 mg before bedtime, increasing by 10 mg weekly as tolerated up to 50 mg. If maximum tolerated doses of trycyclics are not providing adequate pain relief, we recommend addition (if Flexeril/Elavil is helping) or substitution of a dual reuptake inhibitor such as Cymbalta (duloxetine) or Savella (milnacipran). Such drugs may be the drug of first choice in fibromyalgia patients with prominent depression or fatigue, as they often work well for these co-morbid symptoms (in addition to treating pain). Begin Cymbalta at 30 mg once daily with food. The dose can eventually be increased up to a total of 120 mg per day as tolerated, taken either as a single night time dose or b.i.d. Begin Savella at 25 mg, slowly increasing the dose as tolerated to a maximum of 100mg daily (e.g. 50 mg b.i.d.). Both drugs may initially cause nausea, palpitations, and other noradrenergic side effects, so patients should be instructed that this may happen. These side effects usually resolve over time. Another class of medication with proven efficacy in fibromyalgia are the [id number] ligands, Neurontin (gabapentin) and Lyrica (pregabalin). This class of drug might be the best first choice for a fibromyalgia patient with prominent sleep problems. Lyrica is specifically approved for fibromyalgia, at doses of both 300 and 450mg. For Neurontin, doses typically in the range of 1500 - 3000 mg are necessary to treat pain. Both drugs are better tolerated if most or even all of the dose is taken at bedtime (e.g. 150 mg in the morning and 300 mg at night for Lyrica, or 600 mg in the morning and 1200 mg at night for Neurontin). Some of the other medications that can be helpful in some fibromyalgia patients are higher doses of older SSRIs such as Prozac, Zoloft, or Paxil. Dosages higher than those typically used for treating depression (e.g. 40 - 50 mg of Prozac) are often necessary as it appears that at these higher dosages the important noradrenergic activity of these drugs becomes more prominent. Gamma hydroxybutyrate (particularly in those with significant sleep problems) and dopamine agonists (in those with co-morbid restless leg syndrome) can also be helpful in subsets of fibromyalgia patients. Low dose naltrexone (4.5 - 6.0 mg per day) has been shown to be effective in fibromyalgia is several studies, offering further support for the fact that the body's endogenous opioid system may be hyperactive in this condition, and thus blocking this activity (rather than giving an opioid analgesic) may be a useful therapeutic strategy. Finally, there are several studies suggesting that cannabinoids are effective in fibromyalgia - these should not be used as first or second line therapy but are certainly more effective and safer than opioids in this condition. 2. Non-pharmacologic management: Activity/exercise. A ulrich aspect of fibromyalgia management is for the patient to appreciate that when their symptom(s) decrease in response to pharmacologic therapy, they must correspondingly increase their function. For example, when medication(s) diminishes pain, fatigue or other symptoms by 20%, this should lead to a 20% increase in activity/function. Such an increase in function and activity may result in a continuing reduction in complaints of pain, fatigue, etc. and may also diminish associated depressive and anxiety symptoms. We have a website we strongly recommend www.[employer]. The website was developed by our colleagues at the [facility] and earlier version of the website have been shown to be effective in RCTs. We think this website works best if a provider gives specific recommendations about what to do in the website and even give specific homework for patients between visits. 3. Fibromyalgia workshop: We urge patients to attend one of our monthly educational programs designed to provide fibromyalgia patients with state of the art information about this syndrome, and guidance regarding the development of personalized symptom-management strategies. Workshops are conducted at the [facility], located on the upper level of [facility] at the [facility] in [facility] (at the intersection of [address], just [address] of [facility], [address].) The workshop is offered free of charge and friends and family members are welcome to attend. The current schedule is available at: [email or web address]. At the workshops, Dr. Delgadillo presents an overview regarding the science behind fibromyalgia and other chronic multi-symptom illnesses, such as chronic fatigue, and irritable bowel syndrome. He also discusses the influence of cognition and behavior on the illness experience and details several self-management strategies that may be helpful in minimizing fibromyalgia symptoms, such as graduated aerobic exercise and activity pacing. To help patients apply some of the recommended self-management techniques, participants are given a workbook. This workbook contains materials from a university-based cognitive behavioral therapy program and guidelines geared to improving motivation and adherence. The workbook describes a variety of behavioral skills/strategies such as: stress management techniques, effective methods of communication and relaxation, improving function through conscious activity pacing, sleep hygiene and compensatory strategies for concentration/memory difficulties. The following attachments cannot be sent through Care Everywhere.Fibromyalgia (Ugandan)documented in this encounter [facility] 08-30-2024 Note Orthopaedic Surgery Subjective 08/18/2024 - Hip Arthroscopy With Labrum Debridement - Left and It Band Release - Left 08/30/24 Oswald Cox is a 29 y.o. female 12 days s/p Hip Arthroscopy With Labrum Debridement - Left and It Band Release - Left. Denies fevers, chills and other constitutional symptoms. Denies drainage from incision. Patient completed seven days of aspirin prophylaxis. Overall she is doing well. Patient states she has been ambulating without the use of assistive devices Denies fever, chills, numbness, tingling, chest pain, shortness of breath. History Past Surgical History: Procedure Laterality Date CARPAL TUNNEL RELEASE CHOLECYSTECTOMY HYSTERECTOMY total TRIGGER FINGER RELEASE Past Medical History: Diagnosis Date Anxiety Arthritis Asthma CTS (carpal tunnel syndrome) Depression Fibromyalgia, primary Fracture of wrist Joint pain left hip pain Lumbosacral disc disease Neuroma of foot PONV (postoperative nausea and vomiting) Spinal stenosis Thoracic disc disease Trigger finger Objective left lower extremity Exam: - Incision clean, dry, and intact. No drainage or erythema. Sutures removed today. - Reasonable post-surgical ROM, swelling, and tenderness - Sensation grossly intact distally - Brisk capillary refill Patient walks with a heel-to-toe gait with no limp Imaging None taken Assessment/Plan Oswald Cox is a 29 y.o. female s/p Hip Arthroscopy With Labrum Debridement - Left and It Band Release - Left (08/18/2024). - Continue WBAT for LLE -Avoid any high-impact activity for additional 4 weeks -Follow up in 4 weeks Chaz Maciel MD Orthopaedic Surgery PGY-3 08/30/24 12:59 PM Resident only visit [facility] 08-18-2024 Note Patient: Oswald ham Procedure Summary Date: 08/18/24 Room / Location: [facility] OR [address] [place] [address] [facility] OR Anesthesia Start: 902 Anesthesia Stop: 1048 Procedures: HIP ARTHROSCOPY WITH LABRUM DEBRIDEMENT (Left: Hip) IT BAND RELEASE (Left: Hip) Diagnosis: Tear of left acetabular labrum, initial encounter Iliotibial band syndrome of left side (Tear of left acetabular labrum, initial encounter [S73.192A]) (Iliotibial band syndrome of left side [M76.32]) Surgeons: Maury Soliman MD Responsible Provider: Elgin Betancur MD Anesthesia Type: general ASA Status: 3 Anesthesia Type: general Vitals Value Taken Time BP 133/66 08/18/24 1050 Temp 36 ???C (96.8 ???F) 08/18/24 1050 Pulse 93 08/18/24 1050 Resp 13 08/18/24 1050 SpO2 100 % 08/18/24 1050 Anesthesia Post Evaluation Patient location during evaluation: PACU Patient participation: complete - patient participated Level of consciousness: awake Pain score: 1 Pain management: adequate Airway patency: patent Cardiovascular status: acceptable Respiratory status: acceptable Patient is hemodynamically stable and is able to be discharged from PACU per anesthesia protocol. No notable events documented. [facility] 08-18-2024 Note Patient: Oswald ham Procedure Summary Date: 08/18/24 Room / Location: [address] OR Anesthesia Start: 902 Anesthesia Stop: 1048 Procedures: HIP ARTHROSCOPY WITH LABRUM DEBRIDEMENT (Left: Hip) IT BAND RELEASE (Left: Hip) Diagnosis: Tear of left acetabular labrum, initial encounter Iliotibial band syndrome of left side (Tear of left acetabular labrum, initial encounter [S73.192A]) (Iliotibial band syndrome of left side [M76.32]) Surgeons: Maury Soliman MD Responsible Provider: Elgin Betancur MD Anesthesia Type: general ASA Status: 3 Anesthesia Post Transport Note Transport to: PACU O2 Route: room air Patient Monitor: direct observation Transport: uneventful Patient condition is: stable [facility] 08-18-2024 Note Airway Date/Time: 08/18/2024 9:10 AM Urgency: elective General Information and Staff Patient location during procedure: OR Anesthesiologist: Elgin Betancur MD Resident/MANAGER PROGRAM/CAA: Tanvir Kanjuparamban, CAA Performed: resident/MANAGER PROGRAM/CAA Indications and Patient Condition Indications for airway management: anesthesia Spontaneous Ventilation: absent Sedation level: deep Preoxygenated: yes Mask difficulty assessment: 1 - vent by mask Final Airway Details Final airway type: endotracheal airway Successful airway: ETT Cuffed: yes Successful intubation technique: video laryngoscopy Facilitating devices/methods: intubating stylet Endotracheal tube insertion site: oral Blade: Hercules Blade size: #3 ETT size (mm): 7.5 Cormack-Lehane Classification: grade I - full view of glottis Placement verified by: chest auscultation and capnometry Measured from: lips ETT to lips (cm): 22 Number of attempts at approach: 1 Number of other approaches attempted: 0 [facility] 08-18-2024 Note Patient: Oswald ham Procedure Information Date/Time: 08/18/24 0845 Procedures: HIP ARTHROSCOPY WITH LABRUM DEBRIDEMENT VS. (Left: Hip) HIP ARTHROSCOPY WITH LABRUM REPAIR (Left: Hip) IT BAND LENGTHENING (Left: Hip) - C-ARM, S&N NOTIFIED 2/3 MARCIA Location: [facility] OR [address] [place] [address] [facility] OR Surgeons: Maury Soliman MD Relevant Problems Anesthesia (within normal limits) Cardio > 4 METS denies chest pain/SOB Endo BMI 47, not known to have DM /Renal (within normal limits) Neuro/Psych Anxiety depression chronic pain issues, THC use. Pulmonary (within normal limits) Clinical information reviewed: Tobacco Allergies Meds Med Hx Surg Hx OB Status Fam Hx Soc Hx Arthritis CTS (carpal tunnel syndrome) Lumbosacral disc disease Thoracic disc disease Fracture of wrist Neuroma of foot Spinal stenosis Trigger finger Asthma Joint pain Anxiety Depression Fibromyalgia, primary Physical Exam Airway Mallampati: II TM distance: >3 FB Neck ROM: full Cardiovascular - normal exam Dental - normal exam Pulmonary - normal exam Abdominal Anesthesia Plan ASA 3 general The patient is not a current smoker. Patient was not previously instructed to abstain from smoking on day of procedure. Patient did not smoke on day of procedure. intravenous induction Anesthetic plan and risks discussed with patient. Plan discussed with CAA. Additional Equipment Requests [facility] 08-15-2024 Note Psych Progress Note Time In: 1020 Time Out: 1050 HPI Present at Visit: Oswald, kimberly, [employer] student Location of Service: Office Review of Systems Constitutional: Negative. Respiratory: Negative for cough and chest pain. Cardiovascular: negative for chest pain and heart palpitations. Psychiatric/Behavioral: dysphoric mood, anxiety 29-year-old female presents her medication management. She reports that her mood has improved since the last appointment. She rates her depression as 3 on a numeric scale 0-10. She rates her anxiety as 7 on a numeric scale 0-10. She relates her anxiety to having her hip surgery this . She shared that she still has martell episodes such as reckless spending. She says her sleep pattern is still the same and reports she sleeps approximately 3-4 hours a night. She denies SI and self-harm. Discussed her genetic test results with patient. She reports the Vraylar has been effective and would like to keep dosage the same. Plan is to her at the same dosage for the Vraylar and start her on trazodone 50 mg for sleep. She is to follow up in 4 weeks. If the trazodone is not effective, we will put her back on Ambien. Note written by [employer] student and reviewed by Joseph Ivey. Current Presenting Symptoms/Problems: Mood: Good concentration, anhedonia, dysphoric mood, impulsivity, No decreased need for sleep, No crying spells, and No excessive excitement Anxiety: No agoraphobia, No compulsions, and No generalized worry Trauma/Abuse: No abuse reported and No additional trauma noted Cognition: No agitation and No paranoia Sleep: No insomnia Lifestyle Habits: Structured routine of day Medication Compliance: Greater than 90% Onset/Timing: chronic Context: stable Severity: moderate Therapeutic Interventions Provided: Assessed Mood and Assessed Thinking Response to Intervention: Agreeable Overall Assessment of Progress: stable OARRS: No concerns noted MENTAL STATUS EXAMINATION Level of Alertness: alert Appearance: appears stated age, clean, dressed appropriately, healthy, neat, and well-groomed Eye Contact: normal Build/Stature: normal weight and normal height Posture: good posture Muscle Tone: normal Gait and Ambulation: coordinated Station: did not assess Attitude Toward Examiner: cooperative Behavior: normal Speech: clear and coherent reciprocal Language: expressive normal Mood: euthymic Affect:appropriate Thought Process: coherent, goal-directed, and linear Thought Content: intact, no delusions, no depersonalization, no derealization, no hallucinations, no homicidal ideation, no illusions, no preoccupations, and no suicidal ideation Orientation: oriented to person, oriented to place, and oriented to time Attention and Concentration: able to appropriately shift attention, able to focus, and able to sustain attention Memory: able to comment on events, conversation content appropriate, and intact Abstraction: Proverbs: abstract Abstraction: Object Similarities: abstract Estimated Intelligence: average Insight: intact Judgement: social judgment intact and test judgment intact Reliability: reliable Diagnoses of Moderate episode of recurrent major depressive disorder (CMS/HCC), JAIMIE (generalized anxiety disorder), PTSD (post-traumatic stress disorder), and Primary insomnia were pertinent to this visit. Plan: Medication Conitnue vraylar 1.5mg Start trazodone 50mg hs ISP due within the next 4 visits Labs - up to date RTC in 6 weeks This note was dictated by speech recognition. Minor errors in butadiene converter operator may be present. Use [employer], crisis care service ([phone]), your local [facility] crisis hotline, [employer] suicide prevention lifeline ( ) or the nearest emergency room in the event of a crisis. Use 24 hour access at [facility]: if in crisis after regular business hours you may call the hospital timber incisor operator at [phone] and ask to speak with the energy operations vice president on-call. You may reach out to the provider by sending a message on [email or web address] or calling the office ([phone]). The provider will respond back within 1-2 business days. Clinic rules include the no show policy: termination from the clinic can be the result of missing 2 appointments in a row or 3 appointments in any 12 month period through either no-shows or cancellations with less than 24 hours notice. Abstinence from alcohol and drugs is important.These substances may have significant negative effects on cognitive and emotional functioning, and there are interactions between these substances and prescribed medications. Treatment with psychotropic medications requires regular monitoring and follow up to ensure safety and effectiveness.It is important to attend regularly scheduled appointments and to keep in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 Surgical interventions including: arthroscopic repair or reconstruction of affected structures -Patient has elected to proceed with operative intervention: hip arthroscopy, left hip labral debridement versus repair, left IT band lengthening. Consent obtained today in clinic. Jad Prakash MD Orthopaedic Surgery PGY-3 [facility] 05/30/24 9:41 AM By using the attestations below, the signing clinician agrees that I have read and verify that the documentation has been personally reviewed by me and ensure that the documentation accurately reflects the encounter. GC: I personally saw this patient on the day of the encounter, performed the ulrich portion(s) of the service and participated in the management and confirm the resident's documentation. Please note there may be an additional personal documentation from me. [facility] 02-05-2024 Instructions Includes: Instructions for all patient encounters ~*[facility] offered active and sup portive listening, normalized emotions and feelings, and processed ~current stressors Last Documented On 4 7:06PM ; [facility] Discussed nutritional needs teach healthy choices including fruits and vegetables Last Documented On 4 2:21PM ; [facility] Patient education about a pr oper diet Last Documented On 4 2:21PM ; [facility] Discussed concerns about exe rcise : promote physical activity Last Documented On 4 2:21PM ; [facility] Discussed nutritional needs teach healthy choices including fruits and vegetables Last Documented On 4 9:22AM ; [facility] Patient education about a pr oper diet Last Documented On 4 9:22AM ; [facility] Discussed concerns about exe rcise : promote physical activity ~ ~Follow up in 3 months Last Documented On 4 10:02AM ; [facility] Not requesting contraception Last Documented On 4 9:22AM ; [facility] *[facility] offered active and supp ortive listening, normalized emotions and feelings, and processed ~current stressors. ~*Discussed healthy lifestyle behaviors Last Documented On 4 6:51PM ; [facility] Discussed nutritional needs teach healthy choices including fruits and vegetables Last Documented On 4 6:53PM ; [facility] Patient education about a pr oper diet Last Documented On 4 6:53PM ; [facility] Discussed concerns about exe rcise : promote physical activity ~ ~Will try steriod to help with hip pain ~ ~Follow up with orthopedics ~ ~Follow up in one month for weight loss evaluation Last Documented On 4 10:48AM ; [facility] Not requesting contraception Last Documented On 4 6:55PM ; [facility] offered active and suppo rtive listening and normalized emotions and feelings related to new job. ~[facility] discussed coping skills and stress management techniques to implement. ~[facility] encouraged patient to implement helathy lifestyle changes in addition to medications Last Documented On 3 5:22PM ; [facility] Discussed nutritional needs teach healthy choices including fruits and vegetables Last Documented On 3 4:24PM ; [facility] Patient education about a pr oper diet Last Documented On 3 4:24PM ; [facility] Discussed concerns about exe rcise : promote physical activity Last Documented On 3 4:24PM ; [facility] Not requesting contraception Last Documented On 3 4:24PM ; [facility] Discussed nutritional needs teach healthy choices including fruits and vegetables Last Documented On 3 11:59AM ; [facility] Patient education about a pr oper diet Last Documented On 3 11:59AM ; [facility] Discussed concerns about exe rcise : promote physical activitya ~ ~Follow up after hysterectomy if mental health declines Last Documented On 3 12:59PM ; [facility] provided supportive list ening and reflective feedback; provided pt space to share any concerns or problems impacting daily living. ~Acknowledged and normalized emotions. ~Promoted benefits of maintaining medication compliance, use healthy coping methods, and seek support, as needed Last Documented On 3 4:15PM ; [facility] Discussed nutritional needs teach healthy choices including fruits and vegetables Last Documented On 3 2:39PM ; [facility] Patient education about a pr oper diet Last Documented On 3 2:39PM ; [facility] Discussed concerns about exe rcise : promote physical activity ~ ~Will send to cardiology for heart palpitations ~ ~Follow up for mood in 6 months Last Documented On 3 3:28PM ; [facility] Discussed nutritional needs teach healthy choices including fruits and vegetables Last Documented On 3 1:54PM ; [facility] Patient education about a pr oper diet Last Documented On 3 1:54PM ; [facility] Discussed concerns about exe rcise : promote physical activity ~ ~Follow up in 4-6 weeks Last Documented On 3 2:30PM ; [facility] Discussed nutritional needs teach healthy choices including fruits and vegetables Last Documented On 3 2:49PM ; [facility] Patient education about a pr oper diet Last Documented On 3 2:49PM ; [facility] Patient education about an a sthma action plan Last Documented On 3 3:43PM ; [facility] Discussed concerns about exe rcise : promote physical activity ~ ~Due severity of current symptoms will try ipratropium-albuterol with nebulizer ~ ~Will give patient a steriod to take if breathing gets any worse ~ ~Call office or go to ER if breathing gets worse ~ ~Pumonologist appt on 08/14 ~ Last Documented On 3 4:09PM ; [facility] provided active listening ; encouraged, explored, and supported the pt as she processed current stressor(s) impacting mood and functioning. ~Discussed and supported personal health goals. ~Explored coping mechanisms and support system; encouraged use, when needed Last Documented On 2 9:03AM ; [facility] Discussed nutritional needs teach healthy choices including fruits and vegetables Last Documented On 2 5:07PM ; [facility] Patient education about a pr oper diet Last Documented On 2 5:07PM ; [facility] Discussed concerns about exe rcise : promote physical activity ~ ~Will write for work restrictions ~ ~Continue to follow up with specialist Last Documented On 2 5:57PM ; [facility] Discussed current self-care methods/coping skills. ~Validated and normalized pt?s feelings while assisting patient process recent events. ~Discussed ongoing counseling. ~Discussed lifestyle changes to address chronic illness. nephew ~Supported patient's personal health goals ~ ~different music, dropped a lot of old friend, made new ones and support each other ~ ~better mood, less SI Last Documented On 2 6:00PM ; [facility] Discussed nutritional needs teach healthy choices including fruits and vegetables Last Documented On 2 4:56PM ; [facility] Patient education about a pr oper diet Last Documented On 2 4:56PM ; [facility] Inquiry and counseling about medication administration and compliance Last Documented On 2 5:55PM ; [facility] Discussed concerns about exe rcise : promote physical activity Last Documented On 2 4:56PM ; [facility] Patient goals discussed Last Documented On 2 5:55PM ; [facility] Discussed current self-care methods/coping skills. ~Validated and normalized patient's feelings while assisting process recent events. ~Discussed lifestyle changes to address chronic illness. ~Supported patient's personal health goals Last Documented On 2 9:29PM ; [facility] Discussed nutritional needs teach healthy choices including fruits and vegetables Last Documented On 2 10:54AM ; [facility] Patient education about a pr oper diet Last Documented On 2 10:54AM ; [facility] Discussed concerns about exe rcise : promote physical activity Last Documented On 2 10:54AM ; [facility] Discussed current self-care methods/coping skills. ~Validated and normalized patient's feelings while assisting process recent events. ~Discussed lifestyle changes to address chronic illness. ~Supported patient's personal health goals Last Documented On 2 2:41PM ; [facility] Discussed nutritional needs teach healthy choices including fruits and vegetables Last Documented On 2 11:38AM ; [facility] Patient education about a pr oper diet Last Documented On 2 11:38AM ; [facility] Inquiry and counseling about medication administration and compliance Last Documented On 2 7:32PM ; [facility] Discussed concerns about exe rcise : promote physical activity Last Documented On 2 11:38AM ; [facility] Patient goals discussed Last Documented On 2 7:32PM ; [facility] Discussed nutritional needs teach healthy choices including fruits and vegetables Last Documented On 1 3:56PM ; [facility] Patient education about a pr oper diet Last Documented On 1 3:56PM ; [facility] Inquiry and counseling about medication administration and compliance Last Documented On 1 4:30PM ; [facility] Discussed concerns about exe rcise : promote physical activity Last Documented On 1 3:56PM ; [facility] Patient goals discussed Last Documented On 1 4:30PM ; [facility] Discussed current self-care methods/coping skills; ~Discussed EMDR and encouraged engament in counseling and psychiatric care.. ~Provided local resources including hotline number if needed Last Documented On 1 1:03AM ; [facility] Discussed nutritional needs teach healthy choices including fruits and vegetables Last Documented On 1 3:31PM ; [facility] Patient education about a pr oper diet Last Documented On 1 3:31PM ; [facility] Discussed concerns about exe rcise : promote physical activity Last Documented On 1 3:31PM ; [facility] Discussed nutritional needs teach healthy choices including fruits and vegetables Last Documented On 1 3:31PM ; [facility] Patient education about a pr oper diet Last Documented On 1 3:31PM ; [facility] Discussed concerns about exe rcise : promote physical activity Last Documented On 1 3:31PM ; [facility] provided active listenin g, support and helped patient process through current symptoms and stressors related to physical health concerns as well as mood and anxiety. ~[facility] reminded patient of importance of developing coping skills and supports. ~[facility] discussed considering online counseling resources Last Documented On 1 2:22PM ; [facility] Discussed nutritional needs teach healthy choices including fruits and vegetables Last Documented On 1 1:51PM ; [facility] Patient education about a pr oper diet Last Documented On 1 1:51PM ; [facility] Discussed concerns about exe rcise : promote physical activity Last Documented On 1 1:51PM ; [facility] model of care. ~P offered active and supportive listening, normalized emotions and feelings, processed current stressors and explored coping and stress reducing skills. ~P discussed importanced of coping skills and postive supports. P discussed coping skills such as breathing and mindfulness and handouts on how to implement them. [facility] discussed importance of counseling and provided list of resources in the area for patient to establish care Last Documented On 1 1:33PM ; [facility] Discussed nutritional needs teach healthy choices including fruits and vegetables Last Documented On 1 2:38PM ; [facility] Patient education about a pr oper diet Last Documented On 1 2:38PM ; [facility] Inquiry and counseling about medication administration and compliance Last Documented On 1 8:18AM ; [facility] Discussed concerns about exe rcise : promote physical activity Last Documented On 1 2:38PM ; [facility] Patient goals discussed Last Documented On 1 8:18AM ; [facility] Work Phone: 1(590) 943-447708-02-2024 Evaluation note Includes: Assessments for all patient encounters Findings Encounter Date Assessment of body mass index Medical Es tablished Patient with Yohan James PROFESSIONAL PROGRAMMER ANALYST 02/05/2024 Last Documented On 4 3:09PM ; [facility] Assessment of hip joint pain worse while standing Medical Established Patient with Yohan Stewarter PROFESSIONAL PROGRAMMER ANALYST 02/05/2024 Last Documented On 4 3:09PM ; [facility] Generalized anxiety disorder Medical Est ablished Patient with Yohan Stewarter PROFESSIONAL PROGRAMMER ANALYST 02/05/2024 Last Documented On 4 3:09PM ; [facility] Assessment of body mass index Medical Es tablished Patient with Yohan Stewarter PROFESSIONAL PROGRAMMER ANALYST 09/07/2023 Last Documented On 4 10:03AM ; [facility] Diabetes Risk Test Score was four score 09/07/2023 Medical Established Patient with Yohan Blanca PROFESSIONAL PROGRAMMER ANALYST 09/07/2023 Last Documented On 4 10:03AM ; [facility] Obesity Medical Established Patient with Yohan Blanca PROFESSIONAL PROGRAMMER ANALYST 09/07/2023 Last Documented On 4 10:03AM ; [facility] Moderate recurrent major depression BH E stablished Patient with Yaneth Singletary MILK BOTTLING MACHINE OPERATOR 07/24/2023 Last Documented On 4 6:52PM ; [facility] [Body mass index [BMI] 45.0- 49.9, adult] assessment of body mass index Medical Established Patient with Yohan Blanca PROFESSIONAL PROGRAMMER ANALYST 07/24/2023 Last Documented On 4 10:49AM ; [facility] Assessment of hip joint pain worse while standing Medical Established Patient with Yohan Blanca PROFESSIONAL PROGRAMMER ANALYST 07/24/2023 Last Documented On 4 10:49AM ; [facility] Obesity Medical Established Patient with Yohan Blanca PROFESSIONAL PROGRAMMER ANALYST 07/24/2023 Last Documented On 4 10:49AM ; [facility] Moderate recurrent major depression BH E stablished Patient with Eufemia Wilkerson LISWS 06/24/2023 Last Documented On 3 5:23PM ; [facility] [E66.8 - Other obesity] obesity Medical Established Patient with Nargis Reynolds PROFESSIONAL PROGRAMMER ANALYST 06/24/2023 Last Documented On 3 6:42PM ; [facility] [Z68.42 - Body mass index [B NE] 45.0-49.9, adult] assessment of body mass index Medical Established Patient with Nargis Franciscoen PROFESSIONAL PROGRAMMER ANALYST 06/24/2023 Last Documented On 3 6:42PM ; [facility] Venipuncture was performed Medical Estab lished Patient with Nargis Rodolfo PROFESSIONAL PROGRAMMER ANALYST 06/24/2023 Last Documented On 3 6:42PM ; [facility] Acute post-traumatic stress disorder BH Established Patient with Nieves Slough ASSEMBLY LINE WORKER-S 12/26/2022 Last Documented On 3 12:25PM ; [facility] Moderate recurrent major depression BH E stablished Patient with Nieves Slough [employer]SEMBL[employer] LINE WORKER-S 12/26/2022 Last Documented On 3 12:25PM ; [facility] [Body mass index [BMI] 45.0- 49.9, adult] assessment of body mass index Medical Established Patient with Yohan Blanca PROFESSIONAL PROGRAMMER ANALYST 12/26/2022 Last Documented On 3 8:24AM ; [facility] Moderate recurrent major depression Medi larisa Established Patient with Yohan Blanca PROFESSIONAL PROGRAMMER ANALYST 12/26/2022 Last Documented On 3 8:24AM ; [facility] Major depression, recurrent BH Establish ed Patient with Prachi Saha [facility] 10/08/2022 Last Documented On 3 4:17PM ; [facility] [Body mass index [BMI] 45.0- 49.9, adult] assessment of body mass index Medical Established Patient with Yohan Blanca PROFESSIONAL PROGRAMMER ANALYST 10/08/2022 Last Documented On 3 3:31PM ; [facility] Moderate recurrent major depression Medi larisa Established Patient with Yohan Blanca PROFESSIONAL PROGRAMMER ANALYST 10/08/2022 Last Documented On 3 3:31PM ; [facility] Palpitations Medical Established Patient with Yohan Blanca PROFESSIONAL PROGRAMMER ANALYST 10/08/2022 Last Documented On 3 3:31PM ; [facility] [Body mass index [BMI] 45.0- 49.9, adult] assessment of body mass index Medical Established Patient with Yohan Blanca PROFESSIONAL PROGRAMMER ANALYST 09/02/2022 Last Documented On 3 2:30PM ; [facility] Moderate recurrent major depression Medi larisa Established Patient with Yohan Blanca PROFESSIONAL PROGRAMMER ANALYST 09/02/2022 Last Documented On 3 2:30PM ; [facility] [Body mass index [BMI] 45.0- 49.9, adult] assessment of body mass index Medical Established Patient with Yohan Blanca PROFESSIONAL PROGRAMMER ANALYST 07/30/2022 Last Documented On 3 7:50AM ; [facility] [Moderate persistent asthma with (acute) exacerbation] moderate persistent asthma with acute exacerbation Medical Established Patient with Yohan Blanca PROFESSIONAL PROGRAMMER ANALYST 07/30/2022 Last Documented On 3 7:50AM ; [facility] Diabetes Risk Test Score was 5.0 score 07/30/2022 Medical Established Patient with Yohan Blanca PROFESSIONAL PROGRAMMER ANALYST 07/30/2022 Last Documented On 3 7:50AM ; [facility] Assessment of body mass inde x [Body mass index [BMI] 45.0-49.9, adult] Medical Established Patient with Yohan Blanca PROFESSIONAL PROGRAMMER ANALYST 03/04/2022 Last Documented On 2 5:57PM ; [facility] Lumbago Medical Established Patient with Yohan Blanca PROFESSIONAL PROGRAMMER ANALYST 03/04/2022 Last Documented On 2 5:57PM ; [facility] Moderate recurrent major depression BH E stablished Patient with Maia García LPCC-S 11/22/2021 Last Documented On 2 9:49PM ; [facility] Assessment of body mass inde x [Body mass index [BMI] 45.0-49.9, adult] Medical Established Patient with Yohan Blanca PROFESSIONAL PROGRAMMER ANALYST 11/22/2021 Last Documented On 2 7:42PM ; [facility] Assessment of hip joint pain worse while standing Medical Established Patient with Yohan Blanca PROFESSIONAL PROGRAMMER ANALYST 11/22/2021 Last Documented On 2 7:42PM ; [facility] Moderate recurrent major depression BH E stablished Patient with Maia García LPCC-S 08/12/2021 Last Documented On 2 9:29PM ; [facility] Assessment of body mass index Medical Es tablished Patient with Falguninatalie Han PROFESSIONAL PROGRAMMER ANALYST 08/12/2021 Last Documented On 2 1:16PM ; [facility] Concussion Medical Established Patient with Falguni Guille PROFESSIONAL PROGRAMMER ANALYST 08/12/2021 Last Documented On 2 1:16PM ; [facility] Concussion injury of brain Medical Estab lished Patient with Falguni Guille PROFESSIONAL PROGRAMMER ANALYST 08/12/2021 Last Documented On 2 1:16PM ; [facility] Moderate recurrent major depression BH E stablished Patient with Maia García LPCC-S 08/05/2021 Last Documented On 2 2:41PM ; [facility] Assessment of body mass inde x [Body mass index [BMI] 45.0-49.9, adult] Medical Established Patient with Yohan Blanca PROFESSIONAL PROGRAMMER ANALYST 08/05/2021 Last Documented On 2 7:47PM ; [facility] Concussion injury of brain Medical Estab lished Patient with Yohan Blanca PROFESSIONAL PROGRAMMER ANALYST 08/05/2021 Last Documented On 2 7:47PM ; [facility] Diabetes Risk Test Score was four score 08/05/2021 Medical Established Patient with Yohan Blanca PROFESSIONAL PROGRAMMER ANALYST 08/05/2021 Last Documented On 2 7:47PM ; [facility] Assessment of body mass inde x [Body mass index [BMI] 45.0-49.9, adult] Medical Established Patient with Yohan Blanca PROFESSIONAL PROGRAMMER ANALYST 04/10/2021 Last Documented On 1 4:38PM ; [facility] Medical Established Patient with Yohan Blanca PROFESSIONAL PROGRAMMER ANALYST 04/10/2021 Last Documented On 1 4:38PM ; [facility] Mild recurrent major depression Medical Established Patient with Yohan Blanca PROFESSIONAL PROGRAMMER ANALYST 04/10/2021 Last Documented On 1 4:38PM ; [facility] Post-traumatic stress disorder BH Establ ished Patient with Maia García LPCVickey-S 03/27/2021 Last Documented On 1 1:03AM ; [facility] Assessment of body mass index 48.7 Medic al Established Patient with Yohan Blanca PROFESSIONAL PROGRAMMER ANALYST 03/27/2021 Last Documented On 1 5:53PM ; [facility] Medical Established Patient with Yohan Blanca PROFESSIONAL PROGRAMMER ANALYST 03/27/2021 Last Documented On 1 5:53PM ; [facility] Mild recurrent major depression Medical Established Patient with Yohan Blanca PROFESSIONAL PROGRAMMER ANALYST 03/27/2021 Last Documented On 1 5:53PM ; [facility] Body mass index [Body mass i ndex [BMI] 45.0-49.9, adult] Medical Established Patient with Yohan Blanca PROFESSIONAL PROGRAMMER ANALYST 09/25/2020 Last Documented On 1 12:19PM ; [facility] Mild recurrent major depression Medical Established Patient with Yohan Blanca PROFESSIONAL PROGRAMMER ANALYST 09/25/2020 Last Documented On 1 12:19PM ; [facility] Morbid obesity Medical Established Patient with Yohan Blanca PROFESSIONAL PROGRAMMER ANALYST 09/25/2020 Last Documented On 1 12:19PM ; [facility] Generalized anxiety disorder BH Establis hed Patient with Eufemia Short LISWS 08/28/2020 Last Documented On 1 2:23PM ; [facility] Mild recurrent major depression BH Estab lished Patient with Eufemia Short LISWS 08/28/2020 Last Documented On 1 2:23PM ; [facility] Allergic bronchitis Medical Established Patient with Yohan Blanca PROFESSIONAL PROGRAMMER ANALYST 08/28/2020 Last Documented On 1 3:27PM ; [facility] Assessment of snoring Medical Established Patien t with Yohan Blanca PROFESSIONAL PROGRAMMER ANALYST 08/28/2020 Last Documented On 1 3:27PM ; [facility] Body mass index [Body mass i ndex [BMI] 45.0-49.9, adult] Medical Established Patient with Yohan Blanca PROFESSIONAL PROGRAMMER ANALYST 08/28/2020 Last Documented On 1 3:27PM ; [facility] Mild recurrent major depression Medical Established Patient with Yohan Blanca PROFESSIONAL PROGRAMMER ANALYST 08/28/2020 Last Documented On 1 3:27PM ; [facility] Morbid obesity Medical Established Patient with Yohan Blanca PROFESSIONAL PROGRAMMER ANALYST 08/28/2020 Last Documented On 1 3:27PM ; [facility] Generalized anxiety disorder BH Establis hed Patient with Eufemia Short LISWS 07/25/2020 Last Documented On 1 1:33PM ; [facility] Mild recurrent major depression BH Estab lished Patient with Eufemia Short LISWS 07/25/2020 Last Documented On 1 1:33PM ; [facility] Body mass index Medical New Patient with Yohan Blanca PROFESSIONAL PROGRAMMER ANALYST 07/25/2020 Last Documented On 1 9:00AM ; [facility] Diabetes Risk Test Score was five score 07/25/2020 Medical New Patient with Yohan Blanca PROFESSIONAL PROGRAMMER ANALYST 07/25/2020 Last Documented On 1 9:00AM ; [facility] Morbid obesity Medical New Patient with Yohan Blanca PROFESSIONAL PROGRAMMER ANALYST 07/25/2020 Last Documented On 1 9:00AM ; [facility] Work Phone: 1([phone]) 950-420208-02-2024 Evaluation note Includes: Assessments for all patient encounters Findings Encounter Date Generalized anxiety disorder BH Established Giovanna ent with Yanethdara Singletary MILK BOTTLING MACHINE OPERATOR 02/05/2024 Last Documented On 4 7:07PM ; [facility] Moderate recurrent major depression BH E stablished Patient with Yaneth Singletary MILK BOTTLING MACHINE OPERATOR 02/05/2024 Last Documented On 4 7:07PM ; [facility] Visit for: screening for disorder BH Est ablished Patient with Yaneth Sinlgetary MILK BOTTLING MACHINE OPERATOR 02/05/2024 Last Documented On 4 7:07PM ; [facility] Assessment of body mass index Medical Es tablished Patient with Yohan Blanca PROFESSIONAL PROGRAMMER ANALYST 02/05/2024 Last Documented On 4 6:09PM ; [facility] Assessment of hip joint pain worse while standing Medical Established Patient with Yohan Blanca PROFESSIONAL PROGRAMMER ANALYST 02/05/2024 Last Documented On 4 6:09PM ; [facility] Generalized anxiety disorder Medical Est ablished Patient with Yohan Blanca PROFESSIONAL PROGRAMMER ANALYST 02/05/2024 Last Documented On 4 6:09PM ; [facility] Venipuncture was performed Medical Estab lished Patient with Yohan Blanca PROFESSIONAL PROGRAMMER ANALYST 02/05/2024 Last Documented On 4 6:09PM ; [facility] Assessment of body mass index Medical Es tablished Patient with Yohan Blanca PROFESSIONAL PROGRAMMER ANALYST 09/07/2023 Last Documented On 4 10:03AM ; [facility] Diabetes Risk Test Score was four score 09/07/2023 Medical Established Patient with Yohan Blanca PROFESSIONAL PROGRAMMER ANALYST 09/07/2023 Last Documented On 4 10:03AM ; [facility] Obesity Medical Established Patient with Yohan Blanca PROFESSIONAL PROGRAMMER ANALYST 09/07/2023 Last Documented On 4 10:03AM ; [facility] Moderate recurrent major depression BH E stablished Patient with Yaneth Singletary MILK BOTTLING MACHINE OPERATOR 07/24/2023 Last Documented On 4 6:52PM ; [facility] [Body mass index [BMI] 45.0- 49.9, adult] assessment of body mass index Medical Established Patient with Yohan James PROFESSIONAL PROGRAMMER ANALYST 07/24/2023 Last Documented On 4 10:49AM ; [facility] Assessment of hip joint pain worse while standing Medical Established Patient with Yohan Blanca PROFESSIONAL PROGRAMMER ANALYST 07/24/2023 Last Documented On 4 10:49AM ; [facility] Obesity Medical Established Patient with Yohan Blanca PROFESSIONAL PROGRAMMER ANALYST 07/24/2023 Last Documented On 4 10:49AM ; [facility] Moderate recurrent major depression E stablished Patient with Eufemia Wilkerson LISWS 06/24/2023 Last Documented On 3 5:23PM ; [facility] [E66.8 - Other obesity] obesity Medical Established Patient with Nargis Reynolds [facility] 06/24/2023 Last Documented On 3 6:42PM ; [facility] [Z68.42 - Body mass index [B NE] 45.0-49.9, adult] assessment of body mass index Medical Established Patient with Nargis Reynolds PROFESSIONAL PROGRAMMER ANALYST 06/24/2023 Last Documented On 3 6:42PM ; [facility] Venipuncture was performed Medical Estab lished Patient with Nargis Reynolds PROFESSIONAL PROGRAMMER ANALYST 06/24/2023 Last Documented On 3 6:42PM ; [facility] Acute post-traumatic stress disorder Established Patient with Nievescarine Cormier ASSEMBLY LINE WORKER-S 12/26/2022 Last Documented On 3 12:25PM ; [facility] Moderate recurrent major depression BH E stablished Patient with Nieves Casa ASSEMBLY LINE WORKER-S 12/26/2022 Last Documented On 3 12:25PM ; [facility] [Body mass index [BMI] 45.0- 49.9, adult] assessment of body mass index Medical Established Patient with Yohan Blanca PROFESSIONAL PROGRAMMER ANALYST 12/26/2022 Last Documented On 3 8:24AM ; [facility] Moderate recurrent major depression Medi larisa Established Patient with Yohan Blanca PROFESSIONAL PROGRAMMER ANALYST 12/26/2022 Last Documented On 3 8:24AM ; [facility] Major depression, recurrent BH Establish ed Patient with Prachi Saha LPCC-S 10/08/2022 Last Documented On 3 4:17PM ; [facility] [Body mass index [BMI] 45.0- 49.9, adult] assessment of body mass index Medical Established Patient with Yohan Blanca PROFESSIONAL PROGRAMMER ANALYST 10/08/2022 Last Documented On 3 3:31PM ; [facility] Moderate recurrent major depression Medi larisa Established Patient with Yohan Blanca PROFESSIONAL PROGRAMMER ANALYST 10/08/2022 Last Documented On 3 3:31PM ; [facility] Palpitations Medical Established Patient with Yohan Blanca PROFESSIONAL PROGRAMMER ANALYST 10/08/2022 Last Documented On 3 3:31PM ; [facility] [Body mass index [BMI] 45.0- 49.9, adult] assessment of body mass index Medical Established Patient with Yohan Blanca PROFESSIONAL PROGRAMMER ANALYST 09/02/2022 Last Documented On 3 2:30PM ; [facility] Moderate recurrent major depression Medi larisa Established Patient with Yohan Blanca PROFESSIONAL PROGRAMMER ANALYST 09/02/2022 Last Documented On 3 2:30PM ; [facility] [Body mass index [BMI] 45.0- 49.9, adult] assessment of body mass index Medical Established Patient with Yohan Blanca PROFESSIONAL PROGRAMMER ANALYST 07/30/2022 Last Documented On 3 7:50AM ; [facility] [Moderate persistent asthma with (acute) exacerbation] moderate persistent asthma with acute exacerbation Medical Established Patient with Yohan Blanca PROFESSIONAL PROGRAMMER ANALYST 07/30/2022 Last Documented On 3 7:50AM ; [facility] Diabetes Risk Test Score was 5.0 score 07/30/2022 Medical Established Patient with Yohan Blanca PROFESSIONAL PROGRAMMER ANALYST 07/30/2022 Last Documented On 3 7:50AM ; [facility] Assessment of body mass inde x [Body mass index [BMI] 45.0-49.9, adult] Medical Established Patient with Yohan Blanca PROFESSIONAL PROGRAMMER ANALYST 03/04/2022 Last Documented On 2 5:57PM ; [facility] Lumbago Medical Established Patient with Yohan Blanca PROFESSIONAL PROGRAMMER ANALYST 03/04/2022 Last Documented On 2 5:57PM ; [facility] Moderate recurrent major depression BH E stablished Patient with Maia García LPCC-S 11/22/2021 Last Documented On 2 9:49PM ; [facility] Assessment of body mass inde x [Body mass index [BMI] 45.0-49.9, adult] Medical Established Patient with Yohan Blanca PROFESSIONAL PROGRAMMER ANALYST 11/22/2021 Last Documented On 2 7:42PM ; [facility] Assessment of hip joint pain worse while standing Medical Established Patient with Yohan Blanca PROFESSIONAL PROGRAMMER ANALYST 11/22/2021 Last Documented On 2 7:42PM ; [facility] Moderate recurrent major depression BH E stablished Patient with Maia García LPCC-S 08/12/2021 Last Documented On 2 9:29PM ; [facility] Assessment of body mass index Medical Es tablished Patient with Falguni Guille PROFESSIONAL PROGRAMMER ANALYST 08/12/2021 Last Documented On 2 1:16PM ; [facility] Concussion Medical Established Patient with Falguni Guille PROFESSIONAL PROGRAMMER ANALYST 08/12/2021 Last Documented On 2 1:16PM ; [facility] Concussion injury of brain Medical Estab lished Patient with Falguni Guille PROFESSIONAL PROGRAMMER ANALYST 08/12/2021 Last Documented On 2 1:16PM ; [facility] Moderate recurrent major depression BH E stablished Patient with Maia García LPCC-S 08/05/2021 Last Documented On 2 2:41PM ; [facility] Assessment of body mass inde x [Body mass index [BMI] 45.0-49.9, adult] Medical Established Patient with Yohan Blanca PROFESSIONAL PROGRAMMER ANALYST 08/05/2021 Last Documented On 2 7:47PM ; [facility] Concussion injury of brain Medical Estab lished Patient with Yohan Blanca PROFESSIONAL PROGRAMMER ANALYST 08/05/2021 Last Documented On 2 7:47PM ; [facility] Diabetes Risk Test Score was four score 08/05/2021 Medical Established Patient with Yohan Blanca PROFESSIONAL PROGRAMMER ANALYST 08/05/2021 Last Documented On 2 7:47PM ; [facility] Assessment of body mass inde x [Body mass index [BMI] 45.0-49.9, adult] Medical Established Patient with Yohan Blanca PROFESSIONAL PROGRAMMER ANALYST 04/10/2021 Last Documented On 1 4:38PM ; [facility] Medical Established Patient with Yohan Blanca PROFESSIONAL PROGRAMMER ANALYST 04/10/2021 Last Documented On 1 4:38PM ; [facility] Mild recurrent major depression Medical Established Patient with Yohan Blanca PROFESSIONAL PROGRAMMER ANALYST 04/10/2021 Last Documented On 1 4:38PM ; [facility] Post-traumatic stress disorder Establ ished Patient with Maia García LPCC-S 03/27/2021 Last Documented On 1 1:03AM ; [facility] Assessment of body mass index 48.7 Medic al Established Patient with Yohan Blanca PROFESSIONAL PROGRAMMER ANALYST 03/27/2021 Last Documented On 1 5:53PM ; [facility] Medical Established Patient with Yohan Blanca PROFESSIONAL PROGRAMMER ANALYST 03/27/2021 Last Documented On 1 5:53PM ; [facility] Mild recurrent major depression Medical Established Patient with Yohan Blanca PROFESSIONAL PROGRAMMER ANALYST 03/27/2021 Last Documented On 1 5:53PM ; [facility] Body mass index [Body mass i ndex [BMI] 45.0-49.9, adult] Medical Established Patient with Yohan Blanca PROFESSIONAL PROGRAMMER ANALYST 09/25/2020 Last Documented On 1 12:19PM ; [facility] Mild recurrent major depression Medical Established Patient with Yohan Blanca PROFESSIONAL PROGRAMMER ANALYST 09/25/2020 Last Documented On 1 12:19PM ; [facility] Morbid obesity Medical Established Patient with Yohan Blanca PROFESSIONAL PROGRAMMER ANALYST 09/25/2020 Last Documented On 1 12:19PM ; [facility] Generalized anxiety disorder Establis hed Patient with Eufemia Short LISWS 08/28/2020 Last Documented On 1 2:23PM ; [facility] Mild recurrent major depression BH Estab lished Patient with Eufemia Short LISWS 08/28/2020 Last Documented On 1 2:23PM ; [facility] Allergic bronchitis Medical Established Patient with Yohan Blanca PROFESSIONAL PROGRAMMER ANALYST 08/28/2020 Last Documented On 1 3:27PM ; [facility] Assessment of snoring Medical Established Patien t with Yohan Blanca PROFESSIONAL PROGRAMMER ANALYST 08/28/2020 Last Documented On 1 3:27PM ; [facility] Body mass index [Body mass i ndex [BMI] 45.0-49.9, adult] Medical Established Patient with Yohan Blanca PROFESSIONAL PROGRAMMER ANALYST 08/28/2020 Last Documented On 1 3:27PM ; [facility] Mild recurrent major depression Medical Established Patient with Yohan Blanca PROFESSIONAL PROGRAMMER ANALYST 08/28/2020 Last Documented On 1 3:27PM ; [facility] Morbid obesity Medical Established Patient with Yohan Blanca PROFESSIONAL PROGRAMMER ANALYST 08/28/2020 Last Documented On 1 3:27PM ; [facility] Generalized anxiety disorder BH Establis hed Patient with Eufemia Short LISWS 07/25/2020 Last Documented On 1 1:33PM ; [facility] Mild recurrent major depression BH Estab lished Patient with Eufemia Short LISWS 07/25/2020 Last Documented On 1 1:33PM ; [facility] Body mass index Medical New Patient with Yohan Blanca PROFESSIONAL PROGRAMMER ANALYST 07/25/2020 Last Documented On 1 9:00AM ; [facility] Diabetes Risk Test Score was five score 07/25/2020 Medical New Patient with Yohan Blanca PROFESSIONAL PROGRAMMER ANALYST 07/25/2020 Last Documented On 1 9:00AM ; [facility] Morbid obesity Medical New Patient with Yohan Blanca PROFESSIONAL PROGRAMMER ANALYST 07/25/2020 Last Documented On 1 9:00AM ; [facility] Work Phone: 1(797) 533-355108-02-2024 Evaluation note Includes: Assessments for all patient encounters Findings Encounter Date Generalized anxiety disorder BH Established Giovanna ent with Yaneth Singletary MILK BOTTLING MACHINE OPERATOR 02/05/2024 Last Documented On 4 7:07PM ; [facility] Moderate recurrent major depression BH E stablished Patient with Yaneth Singletary MILK BOTTLING MACHINE OPERATOR 02/05/2024 Last Documented On 4 7:07PM ; [facility] Visit for: screening for disorder BH Est ablished Patient with Yaneth Singletary MILK BOTTLING MACHINE OPERATOR 02/05/2024 Last Documented On 4 7:07PM ; [facility] Assessment of body mass index Medical Es tablished Patient with Yohan Blanca PROFESSIONAL PROGRAMMER ANALYST 02/05/2024 Last Documented On 4 8:28AM ; [facility] Assessment of hip joint pain worse while standing Medical Established Patient with Yohan Blanca PROFESSIONAL PROGRAMMER ANALYST 02/05/2024 Last Documented On 4 8:28AM ; [facility] Generalized anxiety disorder Medical Est ablished Patient with Yohan Blanca PROFESSIONAL PROGRAMMER ANALYST 02/05/2024 Last Documented On 4 8:28AM ; [facility] Venipuncture was performed Medical Estab lished Patient with Yohan Blanca PROFESSIONAL PROGRAMMER ANALYST 02/05/2024 Last Documented On 4 8:28AM ; [facility] Assessment of body mass index Medical Es tablished Patient with Yohan Blanca PROFESSIONAL PROGRAMMER ANALYST 09/07/2023 Last Documented On 4 10:03AM ; [facility] Diabetes Risk Test Score was four score 09/07/2023 Medical Established Patient with Yohan Blanca PROFESSIONAL PROGRAMMER ANALYST 09/07/2023 Last Documented On 4 10:03AM ; [facility] Obesity Medical Established Patient with Yohan Blanca PROFESSIONAL PROGRAMMER ANALYST 09/07/2023 Last Documented On 4 10:03AM ; [facility] Moderate recurrent major depression BH E stablished Patient with Yaneth Singletary MILK BOTTLING MACHINE OPERATOR 07/24/2023 Last Documented On 4 6:52PM ; [facility] [Body mass index [BMI] 45.0- 49.9, adult] assessment of body mass index Medical Established Patient with Yohan Blanca PROFESSIONAL PROGRAMMER ANALYST 07/24/2023 Last Documented On 4 10:49AM ; [facility] Assessment of hip joint pain worse while standing Medical Established Patient with Yohan Blanca PROFESSIONAL PROGRAMMER ANALYST 07/24/2023 Last Documented On 4 10:49AM ; [facility] Obesity Medical Established Patient with Yohan Blanca PROFESSIONAL PROGRAMMER ANALYST 07/24/2023 Last Documented On 4 10:49AM ; [facility] Moderate recurrent major depression BH E stablished Patient with Eufemia Short LISWS 06/24/2023 Last Documented On 3 5:23PM ; [facility] [E66.8 - Other obesity] obesity Medical Established Patient with Nargismanju Franciscoen PROFESSIONAL PROGRAMMER ANALYST 06/24/2023 Last Documented On 3 6:42PM ; [facility] [Z68.42 - Body mass index [B NE] 45.0-49.9, adult] assessment of body mass index Medical Established Patient with Nargis Reynolds PROFESSIONAL PROGRAMMER ANALYST 06/24/2023 Last Documented On 3 6:42PM ; [facility] Venipuncture was performed Medical Estab lished Patient with Nargismanju Reynolds PROFESSIONAL PROGRAMMER ANALYST 06/24/2023 Last Documented On 3 6:42PM ; [facility] Acute post-traumatic stress disorder BH Established Patient with Nieves Slough ASSEMBLY LINE WORKER-S 12/26/2022 Last Documented On 3 12:25PM ; [facility] Moderate recurrent major depression BH E stablished Patient with Nieves Slough ASSEMBLY LINE WORKER-S 12/26/2022 Last Documented On 3 12:25PM ; [facility] [Body mass index [BMI] 45.0- 49.9, adult] assessment of body mass index Medical Established Patient with Yohan Blanca PROFESSIONAL PROGRAMMER ANALYST 12/26/2022 Last Documented On 3 8:24AM ; [facility] Moderate recurrent major depression Medi larisa Established Patient with Yohan Blanca PROFESSIONAL PROGRAMMER ANALYST 12/26/2022 Last Documented On 3 8:24AM ; [facility] Major depression, recurrent BH Establish ed Patient with Prachi Saha LPCC-S 10/08/2022 Last Documented On 3 4:17PM ; [facility] [Body mass index [BMI] 45.0- 49.9, adult] assessment of body mass index Medical Established Patient with Yohan Blanca PROFESSIONAL PROGRAMMER ANALYST 10/08/2022 Last Documented On 3 3:31PM ; [facility] Moderate recurrent major depression Medi larisa Established Patient with Yhoan Blanca PROFESSIONAL PROGRAMMER ANALYST 10/08/2022 Last Documented On 3 3:31PM ; [facility] Palpitations Medical Established Patient with Yohan Blanca PROFESSIONAL PROGRAMMER ANALYST 10/08/2022 Last Documented On 3 3:31PM ; [facility] [Body mass index [BMI] 45.0- 49.9, adult] assessment of body mass index Medical Established Patient with Oyhan Blanca PROFESSIONAL PROGRAMMER ANALYST 09/02/2022 Last Documented On 3 2:30PM ; [facility] Moderate recurrent major depression Medi larisa Established Patient with Yohan Blanca PROFESSIONAL PROGRAMMER ANALYST 09/02/2022 Last Documented On 3 2:30PM ; [facility] [Body mass index [BMI] 45.0- 49.9, adult] assessment of body mass index Medical Established Patient with Yohan Blanca PROFESSIONAL PROGRAMMER ANALYST 07/30/2022 Last Documented On 3 7:50AM ; [facility] [Moderate persistent asthma with (acute) exacerbation] moderate persistent asthma with acute exacerbation Medical Established Patient with Yohan Blanca PROFESSIONAL PROGRAMMER ANALYST 07/30/2022 Last Documented On 3 7:50AM ; [facility] Diabetes Risk Test Score was 5.0 score 07/30/2022 Medical Established Patient with Yohan Blanca PROFESSIONAL PROGRAMMER ANALYST 07/30/2022 Last Documented On 3 7:50AM ; [facility] Assessment of body mass inde x [Body mass index [BMI] 45.0-49.9, adult] Medical Established Patient with Yohan Blanca PROFESSIONAL PROGRAMMER ANALYST 03/04/2022 Last Documented On 2 5:57PM ; [facility] Lumbago Medical Established Patient with Yohan Blanca PROFESSIONAL PROGRAMMER ANALYST 03/04/2022 Last Documented On 2 5:57PM ; [facility] Moderate recurrent major depression BH E stablished Patient with Maia García [facility] 11/22/2021 Last Documented On 2 9:49PM ; [facility] Assessment of body mass inde x [Body mass index [BMI] 45.0-49.9, adult] Medical Established Patient with Yohan Blanca PROFESSIONAL PROGRAMMER ANALYST 11/22/2021 Last Documented On 2 7:42PM ; [facility] Assessment of hip joint pain worse while standing Medical Established Patient with Yohan Blanca PROFESSIONAL PROGRAMMER ANALYST 11/22/2021 Last Documented On 2 7:42PM ; [facility] Moderate recurrent major depression BH E stablished Patient with Maiachang Wongs LPCC-S 08/12/2021 Last Documented On 2 9:29PM ; [facility] Assessment of body mass index Medical Es tablished Patient with Falguni Han PROFESSIONAL PROGRAMMER ANALYST 08/12/2021 Last Documented On 2 1:16PM ; [facility] Concussion Medical Established Patient with Falguni Guille PROFESSIONAL PROGRAMMER ANALYST 08/12/2021 Last Documented On 2 1:16PM ; [facility] Concussion injury of brain Medical Estab lished Patient with Falguni Guille PROFESSIONAL PROGRAMMER ANALYST 08/12/2021 Last Documented On 2 1:16PM ; [facility] Moderate recurrent major depression BH E stablished Patient with Maiachang Wongs LPCC-S 08/05/2021 Last Documented On 2 2:41PM ; [facility] Assessment of body mass inde x [Body mass index [BMI] 45.0-49.9, adult] Medical Established Patient with Yohan Blanca PROFESSIONAL PROGRAMMER ANALYST 08/05/2021 Last Documented On 2 7:47PM ; [facility] Concussion injury of brain Medical Estab lished Patient with Yohan Blanca PROFESSIONAL PROGRAMMER ANALYST 08/05/2021 Last Documented On 2 7:47PM ; [facility] Diabetes Risk Test Score was four score 08/05/2021 Medical Established Patient with Yohan Blanca PROFESSIONAL PROGRAMMER ANALYST 08/05/2021 Last Documented On 2 7:47PM ; [facility] Assessment of body mass inde x [Body mass index [BMI] 45.0-49.9, adult] Medical Established Patient with Yohan Blanca PROFESSIONAL PROGRAMMER ANALYST 04/10/2021 Last Documented On 1 4:38PM ; [facility] Medical Established Patient with Yohan Blanca PROFESSIONAL PROGRAMMER ANALYST 04/10/2021 Last Documented On 1 4:38PM ; [facility] Mild recurrent major depression Medical Established Patient with Yohan Blanca PROFESSIONAL PROGRAMMER ANALYST 04/10/2021 Last Documented On 1 4:38PM ; [facility] Post-traumatic stress disorder Establ ished Patient with Maia García LPC-S 03/27/2021 Last Documented On 1 1:03AM ; [facility] Assessment of body mass index 48.7 Medic al Established Patient with Yohan Blanca PROFESSIONAL PROGRAMMER ANALYST 03/27/2021 Last Documented On 1 5:53PM ; [facility] Medical Established Patient with Yohan Blanca PROFESSIONAL PROGRAMMER ANALYST 03/27/2021 Last Documented On 1 5:53PM ; [facility] Mild recurrent major depression Medical Established Patient with Yohan Blanca PROFESSIONAL PROGRAMMER ANALYST 03/27/2021 Last Documented On 1 5:53PM ; [facility] Body mass index [Body mass i ndex [BMI] 45.0-49.9, adult] Medical Established Patient with Yohan Blanca PROFESSIONAL PROGRAMMER ANALYST 09/25/2020 Last Documented On 1 12:19PM ; [facility] Mild recurrent major depression Medical Established Patient with Yohan Blanca PROFESSIONAL PROGRAMMER ANALYST 09/25/2020 Last Documented On 1 12:19PM ; [facility] Morbid obesity Medical Established Patient with Yohan Blanca PROFESSIONAL PROGRAMMER ANALYST 09/25/2020 Last Documented On 1 12:19PM ; [facility] Generalized anxiety disorder Establis hed Patient with Eufemia Short LISWS 08/28/2020 Last Documented On 1 2:23PM ; [facility] Mild recurrent major depression Estab lished Patient with Eufemia Short LISWS 08/28/2020 Last Documented On 1 2:23PM ; [facility] Allergic bronchitis Medical Established Patient with Yohan Blanca PROFESSIONAL PROGRAMMER ANALYST 08/28/2020 Last Documented On 1 3:27PM ; [facility] Assessment of snoring Medical Established Patien t with Yohan Blanca PROFESSIONAL PROGRAMMER ANALYST 08/28/2020 Last Documented On 1 3:27PM ; [facility] Body mass index [Body mass i ndex [BMI] 45.0-49.9, adult] Medical Established Patient with Yohan Blanca PROFESSIONAL PROGRAMMER ANALYST 08/28/2020 Last Documented On 1 3:27PM ; [facility] Mild recurrent major depression Medical Established Patient with Yohan Blanca PROFESSIONAL PROGRAMMER ANALYST 08/28/2020 Last Documented On 1 3:27PM ; [facility] Morbid obesity Medical Established Patient with Yohan Blanca PROFESSIONAL PROGRAMMER ANALYST 08/28/2020 Last Documented On 1 3:27PM ; [facility] Generalized anxiety disorder Establis hed Patient with Eufemia Short LISWS 07/25/2020 Last Documented On 1 1:33PM ; [facility] Mild recurrent major depression Estab lished Patient with Eufemia Short LISWS 07/25/2020 Last Documented On 1 1:33PM ; [facility] Body mass index Medical New Patient with Yohan Blanca PROFESSIONAL PROGRAMMER ANALYST 07/25/2020 Last Documented On 1 9:00AM ; [facility] Diabetes Risk Test Score was five score 07/25/2020 Medical New Patient with Yohan Blanca PROFESSIONAL PROGRAMMER ANALYST 07/25/2020 Last Documented On 1 9:00AM ; [facility] Morbid obesity Medical New Patient with Yohan Blanca PROFESSIONAL PROGRAMMER ANALYST 07/25/2020 Last Documented On 1 9:00AM ; [facility] Work Phone: 1(467) 350-229908-02-2024 Progress note* Progress note Date Encounter Last Documented by 02/05/2024 Medical Established Patient Last documented on 02/05/2024; 3:09 PM, Yohan Blanca PROFESSIONAL PROGRAMMER ANALYST; [facility] Active Problems & Conditions - F41.1 - Generalized Anxiety Disorder - M25.552 - Joint Pain Hip Worse with Weightbearing Standing - M54.5 - Lumbago - F33.1 - Major Depression Recurrent Moderate - E66.8 - Obesity - E28.2 - Polycystic Ovarian Syndrome (Pcos) - R06.83 - Snoring Chief Complaint The Chief Complaint is: 3 month follow up. Referred Here Not referred by urgent care clinic and not the emergency room. Prior encounters Physical Therapy Ortho. History of Present Illness Oswald Cox is a 28 year old female. - Allergy list reviewed - Reviewed Medications Symbicort- has been out for almost 2 years - Medication list reviewed - Date of last menstruation 10/02/2022 Patient presents for follow up Recently moved to and would like to find a PCP close to where she lives, discussed two different [place] locations that she may transfer to States that mood is well controlled on current medication Has been having a lot of hip pain and is doing PT 3 times a week, states that PT said she should get evaluated for RA Patient is tolerating victoza well and continues to lose weight, denies any hypoglycemic episodes Current Medication - *MEDICAL MARIJUANA Miscellaneous 0 days, 0 refills - Alcohol Pads 70% use to cleanse skin prior to victoza injection, 90 days, 3 refills - Assure ID Safety Pen [place] 31G X 5 MM Miscellaneous (not specified) 31G X 5 MM use to inject victoza daily, 90 days, 3 refills - busPIRone HCl 10 MG Oral Tablet TAKE ONE TABLET BY MOUTH TWICE A DAY, 30 days, 5 refills - Estradiol 0.1 MG/24HR Transdermal Patch Weekly change weeklyDr. Ramesh, 0 days, 0 refills - Paxil 30 MG Oral Tablet Take 1 tablet by mouth once daily, 30 days, 5 refills - Singulair 10 MG Oral Tablet Take one tablet by mouth once daily, 30 days, 5 refills - Ventolin HFA 108 (90 Base) MCG/ACT Inhalation Aerosol Solution inhale 1-2 puffs every 4-6 hours as needed for wheezing/shortness of breath, 30 days, 11 refills - Victoza 18 MG/3ML Subcutaneous Solution Pen-injector INJECT 1.8 mg UNDER THE SKIN ONCE DAILY, 30 days, 2 refills Past Medical/Surgical History Other: No previous suicide attempt Reported: No Safety Measures. Medical: No previous hospitalizations. Immunization History: Recent immunization for flu. : Previously 0 time(s). Not planning a in the next year. Diagnoses: Gynecologic disorder PCOS, endometriosis Surgical: - Tonsillectomy 2006 - Tonsillectomy with adenoidectomy - General surgery exploratory laproscopic surgery- looking for endometriosis 11/2019 Trigger finger and thumb left hand- 10/2022 - Cholecystectomy 08/2015 - Hysterectomy 01/05/2023 - Total hysterectomy total lathroscopic hysterectomy with bilateral salpingoopherectomy 01/05/23 - Decompression of median nerve at carpal tunnel Carpal Tunnel Release right wrist 01/2021, left 08/2021 Social History Environmental Exposure: No secondhand cigarette smoke exposure. Behavioral: Not a current tobacco user. Tobacco use: Not using electronic cigarettes/vaping. Alcohol: A social drinker montly. Drug Use: Using marijuana daily. Sexual: Not sexually active. Sexual orientation Straight (not lesbian or davis) and gender identity Female. Allergies - No Known Allergies Family History Paternal: Cardiovascular disorder heart attack at age 53 Systemic hypertension Congenital heart disease Respiratory disorder COPD Maternal: Systemic hypertension Asthma Renal disorder Fraternal: Psychiatric disorders anxiety Sororal: Stroke syndrome age 18 Review Of Systems Head: No head symptoms. Otolaryngeal: No nose and sinus finding. Cardiovascular: No cardiovascular symptoms. Pulmonary: No pulmonary symptoms. Gastrointestinal: No gastrointestinal symptoms. Musculoskeletal: No musculoskeletal symptoms. Neurological: No neurological symptoms. Psychological: No psychological symptoms. Skin: No skin symptoms. Physical Findings - Vitals taken 02/05/2024 02:13 pm BP-Sitting L105/73 mmHg BP Cuff SizeLarge Pulse Rate-Bjaapyh54 bpm Temp-Oral97.9 F Dnsvpp10 in Udghnr816 lbs 6.4 oz Body Mass Index45.1 kg/m2 Body Surface Area2.5 m2 Oxygen Uacmgyhslg96 % Vital Signs: - Systolic blood pressure < 130 mmHg. - Diastolic Blood Pressure < 80 mmHg. General Appearance: - Awake. - Alert. - Well developed. Lungs: - Respiration rhythm and depth was abnormal. Cardiovascular: Auscultation: - Normal. Heart Rate And Rhythm: - Normal. Heart Sounds: - Normal. Musculoskeletal System: General/bilateral: - Normal movement of all extremities, guarded movement due to left hip pain. Neurological: - Oriented to time, place, and person. Psychiatric: - Expression of emotions normal. Tests Laboratory-based Chemistry: Other Laboratory Tests: Screening for sexually transmitted infections was not performed. Assessment - Hip joint pain worse while standing [Pain in left hip] - Body mass index [Body mass index [BMI] 45.0-49.9, adult] - Generalized anxiety disorder [Generalized anxiety disorder] Previous Tests Pathology: Cytology: Cervical Pap smear 09/01/2023. Counseling/Education - Discussed nutritional needs teach healthy choices including fruits and vegetables - Patient education about a proper diet - Discussed concerns about exercise: promote physical activity Plan StartCited- Body mass index [BMI] 45.0-49.9, adult Victoza 18 MG/3ML mL INJECT 1.8 mg UNDER THE SKIN ONCE DAILY, 90 days, 1 refills Victoza 18 MG/3ML mL INJECT 1.8 mg UNDER THE SKIN ONCE DAILY, 90 days, 1 refills EndCited StartCited- Generalized anxiety disorder busPIRone HCl 10 MG tablet TAKE ONE TABLET BY MOUTH TWICE A DAY, 90 days, 1 refills EndCited StartCited- Major depressive disorder, recurrent, moderate Paxil 30 MG tablet Take 1 tablet by mouth once daily, 30 days, 5 refills Paxil 30 MG tablet Take 1 tablet by mouth once daily, 90 days, 1 refills EndCited StartCited- Moderate persistent asthma, uncomplicated Symbicort 160-4.5 MCG/ACT gram Inhale 2 puffs two times a day ( rinse mouth after use), 90 days, 1 refills EndCited StartCited- Pain in unspecified joint Lab: Uric Acid Lab: CBC With Differential/Platelet Lab: Sedimentation Rate-Westergren Lab: Rheumatoid Factor (RF) Lab: C-Reactive Protein, Quant Lab: Vitamin D, 25-Hydroxy Lab: Anti-CCP Ab, IgG/IgA Lab: FLIP by IFA Rfx Titer/Pattern EndCited StartCited- Unspecified asthma, uncomplicated Singulair 10 MG tablet Take one tablet by mouth once daily, 90 days, 1 refills Ventolin HFA 108 (90 Base) MCG/ACT gram inhale 1-2 puffs every 4-6 hours as needed for wheezing/shortness of breath, 30 days, 11 refills EndCited Advance Directives - Living Will Care Team - Yohan Blanca, PRUDENCIO [facility]08-02-2024 Progress note* Progress note Date Encounter Last Documented by 02/05/2024 Established Patient Last docu mented on 02/05/2024; 7:07 PM, Yaneth BARRERAW; [facility] Active Problems & Conditions - F41.1 - Generalized Anxiety Disorder - M25.552 - Joint Pain Hip Worse with Weightbearing Standing - M54.5 - Lumbago - F33.1 - Major Depression Recurrent Moderate - E66.8 - Obesity - E28.2 - Polycystic Ovarian Syndrome (Pcos) - R06.83 - Snoring Subjective P met with patient for screens. Patient PHQ9 score was a 1 reporting sometimes she has difficulty concentrating. Patients JAIMIE score was a 0 Patient feels that the medicaiton is helping with her mood. SHe recently moved up to [place] and hopes to transfer her care to a [facility] closer to home. Patient does not have any concerns at this time and does not want to make any changes. Chief Complaint The Chief Complaint is:: 3 month follow up. History of Present Illness Oswald Cox is a 28 year old female. - Anxiety - Depression - Energy level is good - No sleep disturbances Current Medication - *MEDICAL MARIJUANA Miscellaneous 0 days, 0 refills - Alcohol Pads 70% use to cleanse skin prior to victoza injection, 90 days, 3 refills - Assure ID Safety Pen [place] 31G X 5 MM Miscellaneous (not specified) 31G X 5 MM use to inject victoza daily, 90 days, 3 refills - busPIRone HCl 10 MG Oral Tablet TAKE ONE TABLET BY MOUTH TWICE A DAY, 90 days, 1 refills - busPIRone HCl 10 MG Oral Tablet TAKE ONE TABLET BY MOUTH TWICE A DAY, 30 days, 5 refills - Estradiol 0.1 MG/24HR Transdermal Patch Weekly change weeklyDrRaquel Chandler, 0 days, 0 refills - Paxil 30 MG Oral Tablet Take 1 tablet by mouth once daily, 90 days, 1 refills - Paxil 30 MG Oral Tablet Take 1 tablet by mouth once daily, 30 days, 5 refills - Paxil 30 MG Oral Tablet Take 1 tablet by mouth once daily, 30 days, 5 refills - Singulair 10 MG Oral Tablet Take one tablet by mouth once daily, 90 days, 1 refills - Singulair 10 MG Oral Tablet Take one tablet by mouth once daily, 30 days, 5 refills - Symbicort 160-4.5 MCG/ACT Inhalation Aerosol Inhale 2 puffs two times a day ( rinse mouth after use), 90 days, 1 refills - Ventolin HFA 108 (90 Base) MCG/ACT Inhalation Aerosol Solution inhale 1-2 puffs every 4-6 hours as needed for wheezing/shortness of breath, 30 days, 11 refills - Ventolin HFA 108 (90 Base) MCG/ACT Inhalation Aerosol Solution inhale 1-2 puffs every 4-6 hours as needed for wheezing/shortness of breath, 30 days, 11 refills - Victoza 18 MG/3ML Subcutaneous Solution Pen-injector INJECT 1.8 mg UNDER THE SKIN ONCE DAILY, 90 days, 1 refills - Victoza 18 MG/3ML Subcutaneous Solution Pen-injector INJECT 1.8 mg UNDER THE SKIN ONCE DAILY, 30 days, 2 refills - Victoza 18 MG/3ML Subcutaneous Solution Pen-injector INJECT 1.8 mg UNDER THE SKIN ONCE DAILY, 90 days, 1 refills Past Medical/Surgical History Other: No previous suicide attempt Reported: No Safety Measures. Medical: No previous hospitalizations. Immunization History: Recent immunization for flu. : Previously 0 time(s). Not planning a in the next year. Diagnoses: Gynecologic disorder PCOS, endometriosis Surgical: - Tonsillectomy 2006 - Tonsillectomy with adenoidectomy - General surgery exploratory laproscopic surgery- looking for endometriosis 11/2019 Trigger finger left hand- 10/2022 - Cholecystectomy 08/2015 - Hysterectomy - Total hysterectomy total lathroscopic hysterectomy with bilateral salpingoopherectomy 01/05/23 - Decompression of median nerve at carpal tunnel Carpal Tunnel Release right wrist 01/2021, left 08/2021 Social History Environmental Exposure: No secondhand cigarette smoke exposure. Behavioral: Not a current tobacco user. Alcohol: A social drinker. Drug Use: Using marijuana. Does not misuse drugs and not using drugs. Sexual: Sexual orientation Straight (not lesbian or davis) and gender identity Female. Allergies - No Known Allergies Family History Paternal: Cardiovascular disorder heart attack at age 53 Systemic hypertension Maternal: Systemic hypertension Asthma Renal disorder Fraternal: Psychiatric disorders anxiety Sororal: Stroke syndrome age 18 Physical Findings General Appearance: - Normal Appearance. Neurological: - Cognitive Functions was Normal. - Estimated intelligence was normal. - Oriented to time, place, and person. - No hallucinations. - Judgement was not impaired. Speech: - Is Normal. - No articulation abnormalities. Psychiatric: - Mood is Euthymic. - Attitude Open. - Mood was happy. Appearance: - Normal. Demonstrated Behavior: - Motor Activity Normal Activity. - Eye Contact Appropriate. Affect: - Congruent with the mood. Thought Processes: - Not impaired. Thought Content: - Revealed no impairment. - Insight was intact. - No delusions. - No suicidal ideation. - No Passive thoughts of . - No suicidal plans. - No suicidal intent. - No homicidal ideations. - No homicidal plans. - No homicidal intent. Past Medical: - No repetitive self injurious behavior. Assessment - Visit for: screening for disorder [Z13.89 - Encounter for screening for other disorder] - Moderate recurrent major depression [F33.1 - Major depressive disorder, recurrent, moderate] - Generalized anxiety disorder [F41.1 - Generalized anxiety disorder] Therapy - Developmental/Behavioral Screening & Testing - PHQ9. - Brief solution-focused. - Adherent with medications. - Visit 30 Minutes. - Plan - do not modify medication. Collaborated with patient and provider: Counseling/Education *BHP offered active and supportive listening, normalized emotions and feelings, and processed current stressors. Plan *[facility] to follow-up with patient at next visit as scheduled. *Patient to follow up as needed/scheduled. *Continue to take medication(s) as prescribed. Advance Directives - Living Will Care Team - Yohan James CNP Health Reminders - JAIMIE-2 satisfied 02/05/2024. - PHQ9 / PHQA satisfied 02/05/2024. User Defined 1 JAIMIE-2 score was 0 02/05/2024, JAIMIE-7 score [JAIMIE-7] Feeling nervous, anxious or on edge? + 0 pt : Not at all, [JIAMIE-7] Not being able to stop or control worrying? + 0 pt : Not at all, Patient Health Questionnaire 9-Item total score was one 02/05/2024, [PHQ-9-1] Little interest or pleasure in doing things? + 0 pt : Not at all, [PHQ-9-2] Feeling down, depressed, or hopeless? + 0 pt : Not at all, [PHQ-9-3] Trouble falling or staying asleep or sleeping too much? + 0 pt : Not at all, [PHQ-9-4] Feeling tired or having little energy? + 0 pt : Not at all, [PHQ-9-5] Poor appetite or overeating? + 0 pt : Not at all, [PHQ-9-6] Feeling bad about yourself-or that you are a failure + 0 pt : Not at all, [PHQ-9-7] Trouble concentrating on things such as reading the newspaper + 1 pt : Several days, [PHQ-9-8] Moving or speaking so slowly that other people have noticed. + 0 pt : Not at all, and [PHQ-9-9] Thoughts that you would be better off or hurting yourself? + 0 pt : Not at all. [facility]08-02-2024 Progress note* Progress note Date Encounter Last Documented by 02/05/2024 Medical Established Patient Last documented on 02/10/2024; 8:28 AM, Yohan James CNP; [facility] Active Problems & Conditions - F41.1 - Generalized Anxiety Disorder - M25.552 - Joint Pain Hip Worse with Weightbearing Standing - M54.5 - Lumbago - F33.1 - Major Depression Recurrent Moderate - E66.8 - Obesity - E28.2 - Polycystic Ovarian Syndrome (Pcos) - R06.83 - Snoring Chief Complaint The Chief Complaint is: 3 month follow up. Referred Here Not referred by urgent care clinic and not the emergency room. Prior encounters Physical Therapy Ortho. History of Present Illness Oswald Cox is a 28 year old female. - Allergy list reviewed - Reviewed Medications Symbicort- has been out for almost 2 years - Medication list reviewed - Date of last menstruation 10/02/2022 Patient presents for follow up Recently moved to and would like to find a PCP close to where she lives, discussed two different [facility] locations that she may transfer to States that mood is well controlled on current medication Has been having a lot of hip pain and is doing PT 3 times a week, states that PT said she should get evaluated for RA Patient is tolerating victoza well and continues to lose weight, denies any hypoglycemic episodes Current Medication - *MEDICAL MARIJUANA Miscellaneous 0 days, 0 refills - Alcohol Pads 70% use to cleanse skin prior to victoza injection, 90 days, 3 refills - Assure ID Safety Pen [place] 31G X 5 MM Miscellaneous (not specified) 31G X 5 MM use to inject victoza daily, 90 days, 3 refills - busPIRone HCl 10 MG Oral Tablet TAKE ONE TABLET BY MOUTH TWICE A DAY, 30 days, 5 refills - Estradiol 0.1 MG/24HR Transdermal Patch Weekly change weeklyDr. Ramesh, 0 days, 0 refills - Paxil 30 MG Oral Tablet Take 1 tablet by mouth once daily, 30 days, 5 refills - Singulair 10 MG Oral Tablet Take one tablet by mouth once daily, 30 days, 5 refills - Ventolin HFA 108 (90 Base) MCG/ACT Inhalation Aerosol Solution inhale 1-2 puffs every 4-6 hours as needed for wheezing/shortness of breath, 30 days, 11 refills - Victoza 18 MG/3ML Subcutaneous Solution Pen-injector INJECT 1.8 mg UNDER THE SKIN ONCE DAILY, 30 days, 2 refills Past Medical/Surgical History Other: No previous suicide attempt Reported: No Safety Measures. Medical: No previous hospitalizations. Immunization History: Recent immunization for flu. : Previously 0 time(s). Not planning a in the next year. Diagnoses: Gynecologic disorder PCOS, endometriosis Surgical: - Tonsillectomy 2006 - Tonsillectomy with adenoidectomy - General surgery exploratory laproscopic surgery- looking for endometriosis 11/2019 Trigger finger and thumb left hand- 10/2022 - Cholecystectomy 08/2015 - Hysterectomy 01/05/2023 - Total hysterectomy total lathroscopic hysterectomy with bilateral salpingoopherectomy 01/05/23 - Decompression of median nerve at carpal tunnel Carpal Tunnel Release right wrist 01/2021, left 08/2021 Social History Environmental Exposure: No secondhand cigarette smoke exposure. Behavioral: Not a current tobacco user. Tobacco use: Not using electronic cigarettes/vaping. Alcohol: A social drinker montly. Drug Use: Using marijuana daily. Sexual: Not sexually active. Sexual orientation Straight (not lesbian or davis) and gender identity Female. Allergies - No Known Allergies Family History Paternal: Cardiovascular disorder heart attack at age 53 Systemic hypertension Congenital heart disease Respiratory disorder COPD Maternal: Systemic hypertension Asthma Renal disorder Fraternal: Psychiatric disorders anxiety Sororal: Stroke syndrome age 16 Review Of Systems Head: No head symptoms. Otolaryngeal: No nose and sinus finding. Cardiovascular: No cardiovascular symptoms. Pulmonary: No pulmonary symptoms. Gastrointestinal: No gastrointestinal symptoms. Musculoskeletal: No musculoskeletal symptoms. Neurological: No neurological symptoms. Psychological: No psychological symptoms. Skin: No skin symptoms. Physical Findings - Vitals taken 02/05/2024 02:13 pm BP-Sitting L105/73 mmHg BP Cuff SizeLarge Pulse Rate-Cniupcc88 bpm Temp-Oral97.9 F Bxrbtu21 in Ndkmzu722 lbs 6.4 oz Body Mass Index45.1 kg/m2 Body Surface Area2.5 m2 Oxygen Mavubiefjm45 % Vital Signs: - Systolic blood pressure < 130 mmHg. - Diastolic Blood Pressure < 80 mmHg. General Appearance: - Awake. - Alert. - Well developed. Lungs: - Respiration rhythm and depth was abnormal. Cardiovascular: Auscultation: - Normal. Heart Rate And Rhythm: - Normal. Heart Sounds: - Normal. Musculoskeletal System: General/bilateral: - Normal movement of all extremities, guarded movement due to left hip pain. Neurological: - Oriented to time, place, and person. Psychiatric: - Expression of emotions normal. Tests Laboratory-based Chemistry: Other Laboratory Tests: Screening for sexually transmitted infections was not performed. Laboratory Studies: Vascular Procedures: Right Antecubital Space. Educational Testing: In the Past 4 Weeks, Asthma kept me from getting much done at work/school/work? (4 Pts) A little of the Time, During the past 4 weeks, how often have you had shortness of breath? (4 Pts) Once or twice a week, During the past for 4 weeks, asthma symptoms woke me up at night or earlier than (5 Pts) Not at all, During the past 4 weeks, have used rescue inhaler or nebulizer medication (4 Pts) Once a week, and Asthma control during the past 4 weeks (5 Pts) Completely Controlled. Assessment - Hip joint pain worse while standing [Pain in left hip] - Body mass index [Body mass index [BMI] 45.0-49.9, adult] - Venipuncture was performed [Encounter for preprocedural laboratory examination] - Generalized anxiety disorder [Generalized anxiety disorder] Previous Tests Pathology: Cytology: Cervical Pap smear 09/01/2023. Test Conclusions Asthma Control Test (ACT), adult total score was 22 02/05/2024. Counseling/Education - Discussed nutritional needs teach healthy choices including fruits and vegetables - Patient education about a proper diet - Discussed concerns about exercise: promote physical activity Plan StartCited- Body mass index [BMI] 45.0-49.9, adult Victoza 18 MG/3ML mL INJECT 1.8 mg UNDER THE SKIN ONCE DAILY, 90 days, 1 refills Victoza 18 MG/3ML mL INJECT 1.8 mg UNDER THE SKIN ONCE DAILY, 90 days, 1 refills EndCited StartCited- Generalized anxiety disorder busPIRone HCl 10 MG tablet TAKE ONE TABLET BY MOUTH TWICE A DAY, 90 days, 1 refills EndCited StartCited- Major depressive disorder, recurrent, moderate Paxil 30 MG tablet Take 1 tablet by mouth once daily, 30 days, 5 refills Paxil 30 MG tablet Take 1 tablet by mouth once daily, 90 days, 1 refills EndCited StartCited- Moderate persistent asthma, uncomplicated Symbicort 160-4.5 MCG/ACT gram Inhale 2 puffs two times a day ( rinse mouth after use), 90 days, 1 refills EndCited StartCited- Pain in unspecified joint Lab: Uric Acid Lab: CBC With Differential/Platelet Lab: Sedimentation Rate-Westergren Lab: Rheumatoid Factor (RF) Lab: C-Reactive Protein, Quant Lab: Vitamin D, 25-Hydroxy Lab: Anti-CCP Ab, IgG/IgA Lab: FLIP by IFA Rfx Titer/Pattern EndCited StartCited- Unspecified asthma, uncomplicated Singulair 10 MG tablet Take one tablet by mouth once daily, 90 days, 1 refills Ventolin HFA 108 (90 Base) MCG/ACT gram inhale 1-2 puffs every 4-6 hours as needed for wheezing/shortness of breath, 30 days, 11 refills EndCited Other - Patient tolerated venipuncture well; - Number of attempts for venipuncture one Advance Directives - Living Will Care Team - Yohan James CNP [facility]03-04-2024 Progress note* Progress note Date Encounter Last Documented by 09/07/2023 Medical Established Patient Last documented on 09/07/2023; 10:03 AM, Yohan James CNP; [facility] Active Problems & Conditions - M25.552 - Joint Pain Hip Worse with Weightbearing Standing - M54.5 - Lumbago - F33.1 - Major Depression Recurrent Moderate - E66.8 - Obesity - E28.2 - Polycystic Ovarian Syndrome (Pcos) - R06.83 - Snoring Chief Complaint The Chief Complaint is: 1 month follow up. Referred Here Not referred by urgent care clinic. Referred by emergency room Olga Castillo. Prior encounters [facility]. History of Present Illness Oswald Cox is a 28 year old female. - Allergy list reviewed - Reviewed Medications - Date of last menstruation 2022 Patient presents for Victoza follow up Has been tolerating medication well and continues to lose weight Mood is well controlled Current Medication - *MEDICAL MARIJUANA Miscellaneous Miscellaneous (not specified) 0 days, 0 refills - Alcohol Pads 70% use to cleanse skin prior to victoza injection, 90 days, 3 refills - Assure ID Safety Pen [place] 31G X 5 MM Miscellaneous (not specified) 31G X 5 MM use to inject victoza daily, 90 days, 3 refills - busPIRone HCl 10 MG Oral Tablet TAKE ONE TABLET BY MOUTH TWICE A DAY, 30 days, 5 refills - Estradiol 0.1 MG/24HR Transdermal Patch Weekly change weeklyDr. Ramesh, 0 days, 0 refills - Paxil 30 MG Oral Tablet Take 1 tablet by mouth once daily, 30 days, 5 refills - Singulair 10 MG Oral Tablet Take one tablet by mouth once daily, 30 days, 5 refills - Symbicort 160-4.5 MCG/ACT Inhalation Aerosol 0 days, 0 refills - Ventolin HFA 108 (90 Base) MCG/ACT Inhalation Aerosol Solution Aerosol, solution inhale 1-2 puffs every 4-6 hours as needed for wheezing/shortness of breath, 30 days, 11 refills - Victoza 18 MG/3ML Subcutaneous Solution Pen-injector inject 0.6 mg per subcutaneous route once x 7 days then increase to 1.2 mg x 7 days then 1.8 mg, 30 days, 2 refills Past Medical/Surgical History Other: No previous suicide attempt Reported: No Safety Measures. Medical: No previous hospitalizations. : Previously 0 time(s). Not planning a in the next year. Diagnoses: Gynecologic disorder PCOS, endometriosis Surgical: - Tonsillectomy 2006 - Tonsillectomy with adenoidectomy - General surgery exploratory laproscopic surgery- looking for endometriosis 11/2019 Trigger finger left hand- 10/2022 - Cholecystectomy 08/2015 - Hysterectomy - Total hysterectomy total lathroscopic hysterectomy with bilateral salpingoopherectomy 01/05/23 - Decompression of median nerve at carpal tunnel Carpal Tunnel Release right wrist 01/2021, left 08/2021 Social History Environmental Exposure: No secondhand cigarette smoke exposure. Behavioral: Not a current tobacco user. Tobacco use: Not using electronic cigarettes/vaping. Alcohol: A social drinker couple times a year. Drug Use: Using marijuana medical- daily. Sexual: Sexually active, sexual orientation Straight (not lesbian or davis), and gender identity Female. Allergies - No Known Allergies Family History Paternal: Cardiovascular disorder heart attack at age 53 Systemic hypertension Maternal: Systemic hypertension Asthma Renal disorder Fraternal: Psychiatric disorders anxiety Sororal: Stroke syndrome age 18 Review Of Systems Head: No head symptoms. Otolaryngeal: No nose and sinus finding. Cardiovascular: No cardiovascular symptoms. Pulmonary: No pulmonary symptoms. Gastrointestinal: No gastrointestinal symptoms. Musculoskeletal: No musculoskeletal symptoms. Neurological: No neurological symptoms. Psychological: No psychological symptoms. Skin: No skin symptoms. Physical Findings - Vitals taken 09/07/2023 09:16 am BP-Sitting L122/84 mmHg BP Cuff SizeLarge Pulse Rate-Ysllhtt22 bpm Temp-Oral98.4 F Oowwtw14 in Wwlvag641 lbs 9.6 oz Body Mass Index46.1 kg/m2 Body Surface Area2.6 m2 Oxygen Yidlxhvvhj32 % Vital Signs: - Systolic blood pressure < 130 mmHg. - Diastolic Blood Pressure < 80 mmHg. - Diastolic blood pressure 80-89 mmHg. General Appearance: - Awake. - Alert. - Well developed. Lungs: - Respiration rhythm and depth was abnormal. Musculoskeletal System: General/bilateral: - Normal movement of all extremities, guarded movement due to left hip pain. Neurological: - Oriented to time, place, and person. Psychiatric: - Expression of emotions finding was normal. Tests Blood Analysis: Hemoglobin Studies: ValueDate Blood hemoglobin A1c 5.0%09/07/2023 Hemoglobin A1c level < 7.0%. Blood Endocrine Laboratory Tests: Value Blood glucose level by fingerstick Non-fasting 113 mg/dl Laboratory-based Chemistry: Other Laboratory Tests: Screening for sexually transmitted infections was not performed. Assessment - Body mass index [Body mass index [BMI] 45.0-49.9, adult] - Diabetes Risk Test Score was four score 09/07/2023 [Encounter for screening for diabetes mellitus] - Obesity [Other obesity] Therapy - Patient refused flu vaccine. Discussed benefits of flu vaccine with Patient. - SBIRT Full Screen Neg. Vaccinations - Received dose of Reported: Patient has received the COVID Vaccine Counseling/Education - Does not want to stop using current contraception - Discussed nutritional needs teach healthy choices including fruits and vegetables - Patient education about a proper diet - Not requesting contraception - Discussed concerns about exercise: promote physical activity Follow up in 3 months Plan StartCited- Body mass index [BMI] 45.0-49.9, adult Victoza 18 MG/3ML mL inject1.8mg under skin daily, 30 days, 2 refills EndCited Notes - Patient is not interested in the COVID-19 vaccination at this time. Advance Directives - Living Will Care Team - Yohan James CNP User Defined 1 Not planning a in the next year. She has not had 4 or more drinks in a day within the past year. Yes (1 point) [Pre-DM]: Yes, mother, father, sister or brother has DM, No (0 points) [Pre-DM]: Patient has not been diagnosed with gestational diabetes or given to a baby weighing 9 pounds or more, No (0 points) [Pre-DM]: No, patient has not been diagnosed with high blood pressure, and Yes (0 point) [Pre-DM]: Yes, physically active. No misuse of prescription only drugs and not illicit. Woman (0 Points) [Pre-DM]. Less than 40 years (0 points) [Pre-DM]. [facility]01-19-2024 Evaluation note Includes: Assessments for all patient encounters Findings Encounter Date Moderate recurrent major depression BH E stablished Patient with Yaneth BARRERAW 07/24/2023 Last Documented On 4 6:52PM ; [facility] Moderate recurrent major depression BH E stablished Patient with Eufemia HAYES 06/24/2023 Last Documented On 3 5:23PM ; [facility] [E66.8 - Other obesity] obesity Medical Established Patient with Nargis Reynolds PROFESSIONAL PROGRAMMER ANALYST 06/24/2023 Last Documented On 3 6:42PM ; [facility] [Z68.42 - Body mass index [B NE] 45.0-49.9, adult] assessment of body mass index Medical Established Patient with Nargis Reynolds PROFESSIONAL PROGRAMMER ANALYST 06/24/2023 Last Documented On 3 6:42PM ; [facility] Venipuncture was performed Medical Estab lished Patient with Nargis Reynolds PROFESSIONAL PROGRAMMER ANALYST 06/24/2023 Last Documented On 3 6:42PM ; [facility] Acute post-traumatic stress disorder Established Patient with Nieves Cormier ASSEMBLY LINE WORKER-S 12/26/2022 Last Documented On 3 12:25PM ; [facility] Moderate recurrent major depression BH E stablished Patient with Nievescarine Cormier ASSEMBLY LINE WORKER-S 12/26/2022 Last Documented On 3 12:25PM ; [facility] [Body mass index [BMI] 45.0- 49.9, adult] assessment of body mass index Medical Established Patient with Yohan James PROFESSIONAL PROGRAMMER ANALYST 12/26/2022 Last Documented On 3 8:24AM ; [facility] Moderate recurrent major depression [facility] Established Patient with Yohan Blanca PROFESSIONAL PROGRAMMER ANALYST 12/26/2022 Last Documented On 3 8:24AM ; [facility] Major depression, recurrent BH Establish ed Patient with Prachi Saha LPCC-S 10/08/2022 Last Documented On 3 4:17PM ; [facility] [Body mass index [BMI] 45.0- 49.9, adult] assessment of body mass index Medical Established Patient with Yohan Blanca PROFESSIONAL PROGRAMMER ANALYST 10/08/2022 Last Documented On 3 3:31PM ; [facility] Moderate recurrent major depression Medi larisa Established Patient with Yohan Blanca PROFESSIONAL PROGRAMMER ANALYST 10/08/2022 Last Documented On 3 3:31PM ; [facility] Palpitations Medical Established Patient with Yohan Blanca PROFESSIONAL PROGRAMMER ANALYST 10/08/2022 Last Documented On 3 3:31PM ; [facility] [Body mass index [BMI] 45.0- 49.9, adult] assessment of body mass index Medical Established Patient with Yohan Blanca PROFESSIONAL PROGRAMMER ANALYST 09/02/2022 Last Documented On 3 2:30PM ; [facility] Moderate recurrent major depression Medi larisa Established Patient with Yohan Blanca PROFESSIONAL PROGRAMMER ANALYST 09/02/2022 Last Documented On 3 2:30PM ; [facility] [Body mass index [BMI] 45.0- 49.9, adult] assessment of body mass index Medical Established Patient with Yohan Blanca PROFESSIONAL PROGRAMMER ANALYST 07/30/2022 Last Documented On 3 7:50AM ; [facility] [Moderate persistent asthma with (acute) exacerbation] moderate persistent asthma with acute exacerbation Medical Established Patient with Yohan Blanca PROFESSIONAL PROGRAMMER ANALYST 07/30/2022 Last Documented On 3 7:50AM ; [facility] Diabetes Risk Test Score was 5.0 score 07/30/2022 Medical Established Patient with Yohan Blanca PROFESSIONAL PROGRAMMER ANALYST 07/30/2022 Last Documented On 3 7:50AM ; [facility] Assessment of body mass inde x [Body mass index [BMI] 45.0-49.9, adult] Medical Established Patient with Yohan Blanca PROFESSIONAL PROGRAMMER ANALYST 03/04/2022 Last Documented On 2 5:57PM ; [facility] Lumbago Medical Established Patient with Yohan Blanca PROFESSIONAL PROGRAMMER ANALYST 03/04/2022 Last Documented On 2 5:57PM ; [facility] Moderate recurrent major depression BH E stablished Patient with Maia García LPCC-S 11/22/2021 Last Documented On 2 9:49PM ; [facility] Assessment of body mass inde x [Body mass index [BMI] 45.0-49.9, adult] Medical Established Patient with Yohan Blanca PROFESSIONAL PROGRAMMER ANALYST 11/22/2021 Last Documented On 2 7:42PM ; [facility] Assessment of hip joint pain worse while standing Medical Established Patient with Yohan Blanca PROFESSIONAL PROGRAMMER ANALYST 11/22/2021 Last Documented On 2 7:42PM ; [facility] Moderate recurrent major depression BH E stablished Patient with Maia García LPCC-S 08/12/2021 Last Documented On 2 9:29PM ; [facility] Assessment of body mass index Medical Es tablished Patient with Falguni Han PROFESSIONAL PROGRAMMER ANALYST 08/12/2021 Last Documented On 2 1:16PM ; [facility] Concussion Medical Established Patient with Falguni Guille PROFESSIONAL PROGRAMMER ANALYST 08/12/2021 Last Documented On 2 1:16PM ; [facility] Concussion injury of brain Medical Estab lished Patient with Falguni Guille PROFESSIONAL PROGRAMMER ANALYST 08/12/2021 Last Documented On 2 1:16PM ; [facility] Moderate recurrent major depression BH E stablished Patient with Maia García LPCC-S 08/05/2021 Last Documented On 2 2:41PM ; [facility] Assessment of body mass inde x [Body mass index [BMI] 45.0-49.9, adult] Medical Established Patient with Yohan Blanca PROFESSIONAL PROGRAMMER ANALYST 08/05/2021 Last Documented On 2 7:47PM ; [facility] Concussion injury of brain Medical Estab lished Patient with Yohan Blanca PROFESSIONAL PROGRAMMER ANALYST 08/05/2021 Last Documented On 2 7:47PM ; [facility] Diabetes Risk Test Score was four score 08/05/2021 Medical Established Patient with Yohan Blanca PROFESSIONAL PROGRAMMER ANALYST 08/05/2021 Last Documented On 2 7:47PM ; [facility] Assessment of body mass inde x [Body mass index [BMI] 45.0-49.9, adult] Medical Established Patient with Yohan Blanca PROFESSIONAL PROGRAMMER ANALYST 04/10/2021 Last Documented On 1 4:38PM ; [facility] Medical Established Patient with Yohan Blanca PROFESSIONAL PROGRAMMER ANALYST 04/10/2021 Last Documented On 1 4:38PM ; [facility] Mild recurrent major depression Medical Established Patient with Yohan Blanca PROFESSIONAL PROGRAMMER ANALYST 04/10/2021 Last Documented On 1 4:38PM ; [facility] Post-traumatic stress disorder Establ ished Patient with Maia García LPCC-S 03/27/2021 Last Documented On 1 1:03AM ; [facility] Assessment of body mass index 48.7 Medic al Established Patient with Yohan Blanca PROFESSIONAL PROGRAMMER ANALYST 03/27/2021 Last Documented On 1 5:53PM ; [facility] Medical Established Patient with Yohan Blanca PROFESSIONAL PROGRAMMER ANALYST 03/27/2021 Last Documented On 1 5:53PM ; [facility] Mild recurrent major depression Medical Established Patient with Yohan Blnaca PROFESSIONAL PROGRAMMER ANALYST 03/27/2021 Last Documented On 1 5:53PM ; [facility] Body mass index [Body mass i ndex [BMI] 45.0-49.9, adult] Medical Established Patient with Yohan Blanca PROFESSIONAL PROGRAMMER ANALYST 09/25/2020 Last Documented On 1 12:19PM ; [facility] Mild recurrent major depression Medical Established Patient with Yohan Blanca PROFESSIONAL PROGRAMMER ANALYST 09/25/2020 Last Documented On 1 12:19PM ; [facility] Morbid obesity Medical Established Patient with Yohan Blanca PROFESSIONAL PROGRAMMER ANALYST 09/25/2020 Last Documented On 1 12:19PM ; [facility] Generalized anxiety disorder Establis hed Patient with Eufemia Short LISWS 08/28/2020 Last Documented On 1 2:23PM ; [facility] Mild recurrent major depression BH Estab lished Patient with Eufemia Short LISWS 08/28/2020 Last Documented On 1 2:23PM ; [facility] Allergic bronchitis Medical Established Patient with Yohan Blanca PROFESSIONAL PROGRAMMER ANALYST 08/28/2020 Last Documented On 1 3:27PM ; [facility] Assessment of snoring Medical Established Patien t with Yohan Blanca PROFESSIONAL PROGRAMMER ANALYST 08/28/2020 Last Documented On 1 3:27PM ; [facility] Body mass index [Body mass i ndex [BMI] 45.0-49.9, adult] Medical Established Patient with Yohan Blanca PROFESSIONAL PROGRAMMER ANALYST 08/28/2020 Last Documented On 1 3:27PM ; [facility] Mild recurrent major depression Medical Established Patient with Yohan Blanca PROFESSIONAL PROGRAMMER ANALYST 08/28/2020 Last Documented On 1 3:27PM ; [facility] Morbid obesity Medical Established Patient with Yohan Blanca PROFESSIONAL PROGRAMMER ANALYST 08/28/2020 Last Documented On 1 3:27PM ; [facility] Generalized anxiety disorder Establis hed Patient with Eufemia Short LISWS 07/25/2020 Last Documented On 1 1:33PM ; [facility] Mild recurrent major depression BH Estab lished Patient with Eufemia Short LISWS 07/25/2020 Last Documented On 1 1:33PM ; [facility] Body mass index Medical New Patient with Yohan Blanca PROFESSIONAL PROGRAMMER ANALYST 07/25/2020 Last Documented On 1 9:00AM ; [facility] Diabetes Risk Test Score was five score 07/25/2020 Medical New Patient with Yohan Blanca PROFESSIONAL PROGRAMMER ANALYST 07/25/2020 Last Documented On 1 9:00AM ; [facility] Morbid obesity Medical New Patient with Yohan Blanca PROFESSIONAL PROGRAMMER ANALYST 07/25/2020 Last Documented On 1 9:00AM ; [facility] Work Phone: [phone] 175-544501-19-2024 Evaluation note Includes: Assessments for all patient encounters Findings Encounter Date Moderate recurrent major depression BH E stablished Patient with Yaneth Singletary MILK BOTTLING MACHINE OPERATOR 07/24/2023 Last Documented On 4 6:52PM ; [facility] [Body mass index [BMI] 45.0- 49.9, adult] assessment of body mass index Medical Established Patient with Yohan Blanca PROFESSIONAL PROGRAMMER ANALYST 07/24/2023 Last Documented On 4 10:49AM ; [facility] Assessment of hip joint pain worse while standing Medical Established Patient with Yohan Blanca PROFESSIONAL PROGRAMMER ANALYST 07/24/2023 Last Documented On 4 10:49AM ; [facility] Obesity Medical Established Patient with Yohan Blanca PROFESSIONAL PROGRAMMER ANALYST 07/24/2023 Last Documented On 4 10:49AM ; [facility] Moderate recurrent major depression BH E stablished Patient with Eufemia Short LISWS 06/24/2023 Last Documented On 3 5:23PM ; [facility] [E66.8 - Other obesity] obesity Medical Established Patient with Nargismanju Reynolds PROFESSIONAL PROGRAMMER ANALYST 06/24/2023 Last Documented On 3 6:42PM ; [facility] [Z68.42 - Body mass index [B NE] 45.0-49.9, adult] assessment of body mass index Medical Established Patient with Nargismanju Franciscoen PROFESSIONAL PROGRAMMER ANALYST 06/24/2023 Last Documented On 3 6:42PM ; [facility] Venipuncture was performed Medical Estab lished Patient with Nargismanju Reynolds PROFESSIONAL PROGRAMMER ANALYST 06/24/2023 Last Documented On 3 6:42PM ; [facility] Acute post-traumatic stress disorder BH Established Patient with Nieves Isacugh ASSEMBLY LINE WORKER-S 12/26/2022 Last Documented On 3 12:25PM ; [facility] Moderate recurrent major depression BH E stablished Patient with Nieves Slough ASSEMBLY LINE WORKER-S 12/26/2022 Last Documented On 3 12:25PM ; [facility] [Body mass index [BMI] 45.0- 49.9, adult] assessment of body mass index Medical Established Patient with Yohan Blanca PROFESSIONAL PROGRAMMER ANALYST 12/26/2022 Last Documented On 3 8:24AM ; [facility] Moderate recurrent major depression Medi larisa Established Patient with Yohan Blanca PROFESSIONAL PROGRAMMER ANALYST 12/26/2022 Last Documented On 3 8:24AM ; [facility] Major depression, recurrent BH Establish ed Patient with Prachi Saha LPCC-S 10/08/2022 Last Documented On 3 4:17PM ; [facility] [Body mass index [BMI] 45.0- 49.9, adult] assessment of body mass index Medical Established Patient with Yohan Blanca PROFESSIONAL PROGRAMMER ANALYST 10/08/2022 Last Documented On 3 3:31PM ; [facility] Moderate recurrent major depression Medi larisa Established Patient with Yohan Blanca PROFESSIONAL PROGRAMMER ANALYST 10/08/2022 Last Documented On 3 3:31PM ; [facility] Palpitations Medical Established Patient with Yohan Blanca PROFESSIONAL PROGRAMMER ANALYST 10/08/2022 Last Documented On 3 3:31PM ; [facility] [Body mass index [BMI] 45.0- 49.9, adult] assessment of body mass index Medical Established Patient with Yohan Blanca PROFESSIONAL PROGRAMMER ANALYST 09/02/2022 Last Documented On 3 2:30PM ; [facility] Moderate recurrent major depression Medi larisa Established Patient with Yohan Blanca PROFESSIONAL PROGRAMMER ANALYST 09/02/2022 Last Documented On 3 2:30PM ; [facility] [Body mass index [BMI] 45.0- 49.9, adult] assessment of body mass index Medical Established Patient with Yohan Blanca PROFESSIONAL PROGRAMMER ANALYST 07/30/2022 Last Documented On 3 7:50AM ; [facility] [Moderate persistent asthma with (acute) exacerbation] moderate persistent asthma with acute exacerbation Medical Established Patient with Yohan Blanca PROFESSIONAL PROGRAMMER ANALYST 07/30/2022 Last Documented On 3 7:50AM ; [facility] Diabetes Risk Test Score was 5.0 score 07/30/2022 Medical Established Patient with Yohan Blanca PROFESSIONAL PROGRAMMER ANALYST 07/30/2022 Last Documented On 3 7:50AM ; [facility] Assessment of body mass inde x [Body mass index [BMI] 45.0-49.9, adult] Medical Established Patient with Yohan Blanca PROFESSIONAL PROGRAMMER ANALYST 03/04/2022 Last Documented On 2 5:57PM ; [facility] Lumbago Medical Established Patient with Yohan Blanca PROFESSIONAL PROGRAMMER ANALYST 03/04/2022 Last Documented On 2 5:57PM ; [facility] Moderate recurrent major depression BH E stablished Patient with Maia García LPCC-S 11/22/2021 Last Documented On 2 9:49PM ; [facility] Assessment of body mass inde x [Body mass index [BMI] 45.0-49.9, adult] Medical Established Patient with Yohan Blanca PROFESSIONAL PROGRAMMER ANALYST 11/22/2021 Last Documented On 2 7:42PM ; [facility] Assessment of hip joint pain worse while standing Medical Established Patient with Yohan Blanca PROFESSIONAL PROGRAMMER ANALYST 11/22/2021 Last Documented On 2 7:42PM ; [facility] Moderate recurrent major depression BH E stablished Patient with Maia García LPCC-S 08/12/2021 Last Documented On 2 9:29PM ; [facility] Assessment of body mass index Medical Es tablished Patient with Falguni Han PROFESSIONAL PROGRAMMER ANALYST 08/12/2021 Last Documented On 2 1:16PM ; [facility] Concussion Medical Established Patient with Falguni Han PROFESSIONAL PROGRAMMER ANALYST 08/12/2021 Last Documented On 2 1:16PM ; [facility] Concussion injury of brain Medical Estab lished Patient with Falguni Guille PROFESSIONAL PROGRAMMER ANALYST 08/12/2021 Last Documented On 2 1:16PM ; [facility] Moderate recurrent major depression BH E stablished Patient with Maia García LPCC-S 08/05/2021 Last Documented On 2 2:41PM ; [facility] Assessment of body mass inde x [Body mass index [BMI] 45.0-49.9, adult] Medical Established Patient with Yohan Blanca PROFESSIONAL PROGRAMMER ANALYST 08/05/2021 Last Documented On 2 7:47PM ; [facility] Concussion injury of brain Medical Estab lished Patient with Yohan Blanca PROFESSIONAL PROGRAMMER ANALYST 08/05/2021 Last Documented On 2 7:47PM ; [facility] Diabetes Risk Test Score was four score 08/05/2021 Medical Established Patient with Yohan Blanca PROFESSIONAL PROGRAMMER ANALYST 08/05/2021 Last Documented On 2 7:47PM ; [facility] Assessment of body mass inde x [Body mass index [BMI] 45.0-49.9, adult] Medical Established Patient with Yohan Blanca PROFESSIONAL PROGRAMMER ANALYST 04/10/2021 Last Documented On 1 4:38PM ; [facility] Medical Established Patient with Yohan Blanca PROFESSIONAL PROGRAMMER ANALYST 04/10/2021 Last Documented On 1 4:38PM ; [facility] Mild recurrent major depression Medical Established Patient with Yohan Blanca PROFESSIONAL PROGRAMMER ANALYST 04/10/2021 Last Documented On 1 4:38PM ; [facility] Post-traumatic stress disorder Establ ished Patient with Maia García LPCC-S 03/27/2021 Last Documented On 1 1:03AM ; [facility] Assessment of body mass index 48.7 Medic al Established Patient with Yohan Blanca PROFESSIONAL PROGRAMMER ANALYST 03/27/2021 Last Documented On 1 5:53PM ; [facility] Medical Established Patient with Yohan Blanca PROFESSIONAL PROGRAMMER ANALYST 03/27/2021 Last Documented On 1 5:53PM ; [facility] Mild recurrent major depression Medical Established Patient with Yohan Blanca PROFESSIONAL PROGRAMMER ANALYST 03/27/2021 Last Documented On 1 5:53PM ; [facility] Body mass index [Body mass i ndex [BMI] 45.0-49.9, adult] Medical Established Patient with Yohan Blanca PROFESSIONAL PROGRAMMER ANALYST 09/25/2020 Last Documented On 1 12:19PM ; [facility] Mild recurrent major depression Medical Established Patient with Yohan Blanca PROFESSIONAL PROGRAMMER ANALYST 09/25/2020 Last Documented On 1 12:19PM ; [facility] Morbid obesity Medical Established Patient with Yohan Blanca PROFESSIONAL PROGRAMMER ANALYST 09/25/2020 Last Documented On 1 12:19PM ; [facility] Generalized anxiety disorder Establis hed Patient with Eufemia Short LISWS 08/28/2020 Last Documented On 1 2:23PM ; [facility] Mild recurrent major depression BH Estab lished Patient with Eufemia Short LISWS 08/28/2020 Last Documented On 1 2:23PM ; [facility] Allergic bronchitis Medical Established Patient with Yohan Blanca PROFESSIONAL PROGRAMMER ANALYST 08/28/2020 Last Documented On 1 3:27PM ; [facility] Assessment of snoring Medical Established Patien t with Yohan Blanca PROFESSIONAL PROGRAMMER ANALYST 08/28/2020 Last Documented On 1 3:27PM ; [facility] Body mass index [Body mass i ndex [BMI] 45.0-49.9, adult] Medical Established Patient with Yohan Blanca PROFESSIONAL PROGRAMMER ANALYST 08/28/2020 Last Documented On 1 3:27PM ; [facility] Mild recurrent major depression Medical Established Patient with Yohan Blanca PROFESSIONAL PROGRAMMER ANALYST 08/28/2020 Last Documented On 1 3:27PM ; [facility] Morbid obesity Medical Established Patient with Yohan Blanca PROFESSIONAL PROGRAMMER ANALYST 08/28/2020 Last Documented On 1 3:27PM ; [facility] Generalized anxiety disorder BH Establis hed Patient with Eufemia Short LISWS 07/25/2020 Last Documented On 1 1:33PM ; [facility] Mild recurrent major depression BH Estab lished Patient with Eufemia Short LISWS 07/25/2020 Last Documented On 1 1:33PM ; [facility] Body mass index Medical New Patient with Yohan Blanca PROFESSIONAL PROGRAMMER ANALYST 07/25/2020 Last Documented On 1 9:00AM ; [facility] Diabetes Risk Test Score was five score 07/25/2020 Medical New Patient with Yohan Blanca PROFESSIONAL PROGRAMMER ANALYST 07/25/2020 Last Documented On 1 9:00AM ; [facility] Morbid obesity Medical New Patient with Yohan Blanca PROFESSIONAL PROGRAMMER ANALYST 07/25/2020 Last Documented On 1 9:00AM ; [facility] Work Phone: [phone] 711-168101-19-2024 History general Narrative - Reported Includes: Medical History in patient's chart Description Last Updated No Safety Measures 07/24/2023 Last Documented On 4 6:52PM ; [facility] Previously 0 time(s) 06/24/2023 Last Documented On 3 6:42PM ; [facility] No previous suicide attempt 12/26/2022 Last Documented On 3 12:25PM ; [facility] Not planning to have a baby in the next 12 months 07/30/2022 Last Documented On 3 7:50AM ; [facility] No previous hospitalizations 08/12/2021 Last Documented On 2 1:16PM ; [facility] Recent immunization for flu 08/05/2021 Last Documented On 2 7:47PM ; [facility] History of gynecologic disorder PCOS, en dometriosis 07/25/2020 Last Documented On 1 9:00AM ; [facility] Work Phone: [phone] 125-297801-19-2024 History general Narrative - Reported Includes: Medical History in patient's chart Description Last Updated No Safety Measures 07/24/2023 Last Documented On 4 6:52PM ; [facility] Previously 0 time(s) 06/24/2023 Last Documented On 3 6:42PM ; [facility] No previous suicide attempt 12/26/2022 Last Documented On 3 12:25PM ; [facility] Not planning to have a baby in the next 12 months 07/30/2022 Last Documented On 3 7:50AM ; [facility] No previous hospitalizations 08/12/2021 Last Documented On 2 1:16PM ; [facility] Recent immunization for flu 08/05/2021 Last Documented On 2 7:47PM ; [facility] History of gynecologic disorder PCOS, en dometriosis 07/25/2020 Last Documented On 1 9:00AM ; [facility] Work Phone: [phone] 726-972401-19-2024 History general Narrative - Reported Includes: Medical History in patient's chart Description Last Updated No Safety Measures 07/24/2023 Last Documented On 4 6:52PM ; [facility] Previously 0 time(s) 06/24/2023 Last Documented On 3 6:42PM ; [facility] No previous suicide attempt 12/26/2022 Last Documented On 3 12:25PM ; [facility] Not planning to have a baby in the next 12 months 07/30/2022 Last Documented On 3 7:50AM ; [facility] No previous hospitalizations 08/12/2021 Last Documented On 2 1:16PM ; [facility] Recent immunization for flu 08/05/2021 Last Documented On 2 7:47PM ; [facility] History of gynecologic disorder PCOS, en dometriosis 07/25/2020 Last Documented On 1 9:00AM ; [facility] Work Phone: [phone] 972-397601-19-2024 History general Narrative - Reported Includes: Medical History in patient's chart Description Last Updated No Safety Measures 07/24/2023 Last Documented On 4 6:52PM ; [facility] Previously 0 time(s) 06/24/2023 Last Documented On 3 6:42PM ; [facility] No previous suicide attempt 12/26/2022 Last Documented On 3 12:25PM ; [facility] Not planning to have a baby in the next 12 months 07/30/2022 Last Documented On 3 7:50AM ; [facility] No previous hospitalizations 08/12/2021 Last Documented On 2 1:16PM ; [facility] Recent immunization for flu 08/05/2021 Last Documented On 2 7:47PM ; [facility] History of gynecologic disorder PCOS, en dometriosis 07/25/2020 Last Documented On 1 9:00AM ; [facility] Work Phone: 1([phone] 154-276001-19-2024 History general Narrative - Reported Includes: Medical History in patient's chart Description Last Updated No Safety Measures 07/24/2023 Last Documented On 4 6:52PM ; [facility] Previously 0 time(s) 06/24/2023 Last Documented On 3 6:42PM ; [facility] No previous suicide attempt 12/26/2022 Last Documented On 3 12:25PM ; [facility] Not planning to have a baby in the next 12 months 07/30/2022 Last Documented On 3 7:50AM ; [facility] No previous hospitalizations 08/12/2021 Last Documented On 2 1:16PM ; [facility] Recent immunization for flu 08/05/2021 Last Documented On 2 7:47PM ; [facility] History of gynecologic disorder PCOS, en dometriosis 07/25/2020 Last Documented On 1 9:00AM ; [facility] Work Phone: [phone] 269-212501-19-2024 History general Narrative - Reported Includes: Medical History in patient's chart Description Last Updated No Safety Measures 07/24/2023 Last Documented On 4 6:52PM ; [facility] Previously 0 time(s) 06/24/2023 Last Documented On 3 6:42PM ; [facility] No previous suicide attempt 12/26/2022 Last Documented On 3 12:25PM ; [facility] Not planning to have a baby in the next 12 months 07/30/2022 Last Documented On 3 7:50AM ; [facility] No previous hospitalizations 08/12/2021 Last Documented On 2 1:16PM ; [facility] Recent immunization for flu 08/05/2021 Last Documented On 2 7:47PM ; [facility] History of gynecologic disorder PCOS, en dometriosis 07/25/2020 Last Documented On 1 9:00AM ; [facility] Work Phone: 1([phone] 214-398001-19-2024 Progress note* Progress note Date Encounter Last Documented by 07/24/2023 [facility] Patient Last docu mented on 07/24/2023; 6:52 PM, Yaneth BARRERAW; [facility] Active Problems & Conditions - S06.0X0S - Concussion Injury of Brain - M25.552 - Joint Pain Hip Worse with Weightbearing Standing - M54.5 - Lumbago - F33.1 - Major Depression Recurrent Moderate - E66.8 - Obesity - E28.2 - Polycystic Ovarian Syndrome (Pcos) - R06.83 - Snoring Subjective [facility] met with patient to follow up on mood and medications. 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 Patient did not have any concerns regarding her mood at this time. Patient was excited that she is down 10lb in her weight loss journey and feels better about herself. . Chief Complaint The Chief Complaint is: Follow up for mood and medications. History of Present Illness Oswald Cox is a 27 year old female. - Energy level is good - No anxiety - No sleep disturbances Current Medication - *MEDICAL MARIJUANA Miscellaneous 0 days, 0 refills - Alcohol Pads 70% use to cleanse skin prior to victoza injection, 90 days, 3 refills - Assure ID Safety Pen [place] 31G X 5 MM Miscellaneous (not specified) 31G X 5 MM use to inject victoza daily, 90 days, 3 refills - busPIRone HCl 10 MG Oral Tablet TAKE ONE TABLET BY MOUTH TWICE A DAY, 30 days, 5 refills - Estradiol 0.1 MG/24HR Transdermal Patch Weekly change weeklyDr. Ramesh, 0 days, 0 refills - Ketorolac Tromethamine 10 MG Oral Tablet every 8 hours as neededPer Emergency room, 0 days, 0 refills - Paxil 30 MG Oral Tablet Take 1 tablet by mouth once daily, 30 days, 5 refills - predniSONE 20 MG Oral Tablet Take one tablet two times a day for 5 days, 5 days, 0 refills - Elzvxdrfk-Fqfkhbnx-NI 30-2-10 MG/5ML Oral Syrup per Er doctor, 6 days, 0 refills - Singulair 10 MG Oral Tablet Take one tablet by mouth once daily, 30 days, 5 refills - Symbicort 160-4.5 MCG/ACT Inhalation Aerosol 0 days, 0 refills - Ventolin HFA 108 (90 Base) MCG/ACT Inhalation Aerosol Solution inhale 1-2 puffs every 4-6 hours as needed for wheezing/shortness of breath, 30 days, 11 refills - Victoza 18 MG/3ML Subcutaneous Solution Pen-injector inject 0.6 mg per subcutaneous route once x 7 days then increase to 1.2 mg x 7 days then 1.8 mg, 30 days, 2 refills Past Medical/Surgical History Other: No previous suicide attempt Reported: No Safety Measures. Medical: No previous hospitalizations. Immunization History: Recent immunization for flu. : Previously 0 time(s). Not planning to have a baby in the next 12 months. Diagnoses: Gynecologic disorder PCOS, endometriosis Surgical: - Tonsillectomy 2006 - Tonsillectomy with adenoidectomy - General surgery exploratory laproscopic surgery- looking for endometriosis 11/2019 - Cholecystectomy 08/2015 - Hysterectomy - Total hysterectomy total lathroscopic hysterectomy with bilateral salpingoopherectomy 01/05/23 - Decompression of median nerve at carpal tunnel Carpal Tunnel Release right wrist 01/2021 Social History Environmental Exposure: No secondhand cigarette smoke exposure. Alcohol: Not using alcohol. Drug Use: Not using drugs. 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 Sexual: Sexual orientation Straight (not lesbian or davis) and gender identity Female. Allergies - No Known Allergies Family History Paternal: Cardiovascular disorder heart attack at age 53 Systemic hypertension Maternal: Systemic hypertension Asthma Renal disorder Fraternal: Psychiatric disorders anxiety Sororal: Stroke syndrome age 18 Physical Findings General Appearance: - Normal Appearance. Neurological: - Cognitive Functions was Normal. - Estimated intelligence was normal. - Oriented to time, place, and person. - No hallucinations. - Judgement was not impaired. Speech: - Is Normal. - No articulation abnormalities. Psychiatric: - Mood is Euthymic. - Attitude Open. Appearance: - Normal. Demonstrated Behavior: - Motor Activity Normal Activity. - Eye Contact Appropriate. Affect: - Congruent with the mood. Thought Processes: - Not impaired. Thought Content: - Revealed no impairment. - Insight was intact. - No delusions. - No suicidal ideation. - No Passive thoughts of . - No suicidal plans. - No suicidal intent. - No homicidal ideations. - No homicidal plans. - No homicidal intent. Past Medical: - No repetitive self injurious behavior. Assessment - Moderate recurrent major depression [F33.1 - Major depressive disorder, recurrent, moderate] Therapy - Brief solution-focused therapy. - Adherent with medications. - Plan - do not modify medication. Collaborated with patient and provider: Counseling/Education *BHP offered active and supportive listening, normalized emotions and feelings, and processed current stressors. *Discussed healthy lifestyle behaviors. Plan *BHP to follow-up with patient at next visit as scheduled. *Patient to follow up as needed/scheduled. Advance Directives - Living Will [facility]01-19-2024 Progress note* Progress note Date Encounter Last Documented by 07/24/2023 Medical Established Patient Last documented on 07/27/2023; 10:49 AM, Yohan James CNP; [facility] Active Problems & Conditions - M25.552 - Joint Pain Hip Worse with Weightbearing Standing - M54.5 - Lumbago - F33.1 - Major Depression Recurrent Moderate - E66.8 - Obesity - E28.2 - Polycystic Ovarian Syndrome (Pcos) - R06.83 - Snoring Chief Complaint The Chief Complaint is: Patient having left hip fell 2 weeks. Referred Here Not referred by urgent care clinic and not the emergency room. No prior encounters. - Data to be reviewed: no clinical lab tests History of Present Illness Oswald Cox is a 27 year old female. - Allergy list reviewed - Reviewed Medications - test - would not like a test Patient presents for ER follow up and weight loss Patient fell on left hip 2 weeks ago, an X ray was taken and did not show fracture, Having a lot of pain at left hip, is planning on following up with orthopedics Patient is tolerating Victoza, has lost 10 pounds since starting medication Reports she is tolerating it well and denies any episodes of hypoglycemia Current Medication - *MEDICAL MARIJUANA Miscellaneous 0 days, 0 refills - Alcohol Pads 70% use to cleanse skin prior to victoza injection, 90 days, 3 refills - Assure ID Safety Pen [place] 31G X 5 MM Miscellaneous (not specified) 31G X 5 MM use to inject victoza daily, 90 days, 3 refills - busPIRone HCl 10 MG Oral Tablet TAKE ONE TABLET BY MOUTH TWICE A DAY, 30 days, 5 refills - Estradiol 0.1 MG/24HR Transdermal Patch Weekly change weeklyDr. Ramesh, 0 days, 0 refills - Ketorolac Tromethamine 10 MG Oral Tablet every 8 hours as neededPer Emergency room, 0 days, 0 refills - Paxil 30 MG Oral Tablet Take 1 tablet by mouth once daily, 30 days, 5 refills - Nxmojotpt-Atbyslaf-DF 30-2-10 MG/5ML Oral Syrup per Er doctor, 6 days, 0 refills - Singulair 10 MG Oral Tablet Take one tablet by mouth once daily, 30 days, 5 refills - Symbicort 160-4.5 MCG/ACT Inhalation Aerosol 0 days, 0 refills - Ventolin HFA 108 (90 Base) MCG/ACT Inhalation Aerosol Solution inhale 1-2 puffs every 4-6 hours as needed for wheezing/shortness of breath, 30 days, 11 refills - Victoza 18 MG/3ML Subcutaneous Solution Pen-injector inject 0.6 mg per subcutaneous route once x 7 days then increase to 1.2 mg x 7 days then 1.8 mg, 30 days, 2 refills Past Medical/Surgical History Other: No previous suicide attempt Reported: Medical: No previous hospitalizations. Immunization History: Recent immunization for flu. : Previously 0 time(s). Not planning to have a baby in the next 12 months. Diagnoses: Gynecologic disorder PCOS, endometriosis Surgical: - Tonsillectomy 2006 - Tonsillectomy with adenoidectomy - General surgery exploratory laproscopic surgery- looking for endometriosis 11/2019 - Cholecystectomy 08/2015 - Hysterectomy - Total hysterectomy total lathroscopic hysterectomy with bilateral salpingoopherectomy 01/05/23 - Decompression of median nerve at carpal tunnel Carpal Tunnel Release right wrist 01/2021 Social History Environmental Exposure: No secondhand cigarette smoke exposure. Behavioral: Not a current tobacco user. Tobacco use: Not using electronic cigarettes/vaping. Alcohol: A social drinker. Drug Use: Not using drugs denied by patient. Sexual: Not sexually active. Sexual orientation Straight (not lesbian or davis) and gender identity Female. Allergies - No Known Allergies Family History Paternal: Cardiovascular disorder heart attack at age 53 Systemic hypertension Maternal: Systemic hypertension Asthma Renal disorder Fraternal: Psychiatric disorders anxiety Sororal: Stroke syndrome age 18 Review Of Systems Head: No head symptoms. Otolaryngeal: No nose and sinus finding. Cardiovascular: No cardiovascular symptoms. Pulmonary: No pulmonary symptoms. Gastrointestinal: No gastrointestinal symptoms. Musculoskeletal: No musculoskeletal symptoms. Neurological: No neurological symptoms. Psychological: No psychological symptoms. Skin: No skin symptoms. Physical Findings - Vitals taken 07/24/2023 06:45 pm BP-Sitting R117/77 mmHg BP Cuff SizeLarge Pulse Rate-Uuwohuv11 bpm Temp-Oral97.5 F Dqsebw32 in Fohpoc189 lbs Body Mass Index46.8 kg/m2 Body Surface Area2.6 m2 Oxygen Rgfyzpslqf17 % Vital Signs: - Systolic blood pressure < 130 mmHg. - Diastolic Blood Pressure < 80 mmHg. General Appearance: - Awake. - Alert. - Well developed. Lungs: - Respiration rhythm and depth was abnormal. Musculoskeletal System: General/bilateral: - Normal movement of all extremities, guarded movement due to left hip pain. Neurological: - Oriented to time, place, and person. Psychiatric: - Expression of emotions finding was normal. Tests Laboratory-based Chemistry: Other Laboratory Tests: Screening for sexually transmitted infections was not performed. Assessment - Hip joint pain worse while standing [Pain in left hip] - Body mass index [Body mass index [BMI] 45.0-49.9, adult] - Obesity [Other obesity] Vaccinations - Received dose of Reported: Patient has received the COVID Vaccine Counseling/Education - Does not want to stop using current contraception - Discussed nutritional needs teach healthy choices including fruits and vegetables - Patient education about a proper diet - Not requesting contraception - Discussed concerns about exercise: promote physical activity Will try steriod to help with hip pain Follow up with orthopedics Follow up in one month for weight loss evaluation Plan StartCited- Pain in unspecified hip predniSONE 20 MG tablet Take one tablet two times a day for 5 days, 5 days, 0 refills EndCited Advance Directives - [id number] Instructions Includes: Instructions for all patient encounters Education and Decision Aids were provided during visit for: Discussed nutritional needs teach healthy choices including fruits and vegetables Last Documented On 3 4:24PM ; [facility] Patient education about a pr oper diet Last Documented On 3 4:24PM ; [facility] Discussed concerns about exe rcise : promote physical activity Last Documented On 3 4:24PM ; [facility] Not requesting contraception Last Documented On 3 4:24PM ; [facility] Discussed nutritional needs teach healthy choices including fruits and vegetables Last Documented On 3 11:59AM ; [facility] Patient education about a pr oper diet Last Documented On 3 11:59AM ; [facility] Discussed concerns about exe rcise : promote physical activitya ~ ~Follow up after hysterectomy if mental health declines Last Documented On 3 12:59PM ; [facility] provided supportive list ening and reflective feedback; provided pt space to share any concerns or problems impacting daily living. ~Acknowledged and normalized emotions. ~Promoted benefits of maintaining medication compliance, use healthy coping methods, and seek support, as needed Last Documented On 3 4:15PM ; [facility] Discussed nutritional needs teach healthy choices including fruits and vegetables Last Documented On 3 2:39PM ; [facility] Patient education about a pr oper diet Last Documented On 3 2:39PM ; [facility] Discussed concerns about exe rcise : promote physical activity ~ ~Will send to cardiology for heart palpitations ~ ~Follow up for mood in 6 months Last Documented On 3 3:28PM ; [facility] Discussed nutritional needs teach healthy choices including fruits and vegetables Last Documented On 3 1:54PM ; [facility] Patient education about a pr oper diet Last Documented On 3 1:54PM ; [facility] Discussed concerns about exe rcise : promote physical activity ~ ~Follow up in 4- 6 weeks Last Documented On 3 2:30PM ; [facility] Discussed nutritional needs teach healthy choices including fruits and vegetables Last Documented On 3 2:49PM ; [facility] Patient education about a pr oper diet Last Documented On 3 2:49PM ; [facility] Patient education about an a sthma action plan Last Documented On 3 3:43PM ; [facility] Discussed concerns about exe rcise : promote physical activity ~ ~Due severity of current symptoms will try ipratropium-albuterol with nebulizer ~ ~Will give patient a steriod to take if breathing gets any worse ~ ~Call office or go to ER if breathing gets worse ~ ~Pumonologist appt on 08/14 ~ Last Documented On 3 4:09PM ; [facility] BH provided active listening ; encouraged, explored, and supported the pt as she processed current stressor(s) impacting mood and functioning. ~Discussed and supported personal health goals. ~Explored coping mechanisms and support system; encouraged use, when needed Last Documented On 2 9:03AM ; [facility] Discussed nutritional needs teach healthy choices including fruits and vegetables Last Documented On 2 5:07PM ; [facility] Patient education about a pr oper diet Last Documented On 2 5:07PM ; [facility] Discussed concerns about exe rcise : promote physical activity ~ ~Will write for work restrictions ~ ~Continue to follow up with specialist Last Documented On 2 5:57PM ; [facility] Discussed current self-care methods/coping skills. ~Validated and normalized pt?s feelings while assisting patient process recent events. ~Discussed ongoing counseling. ~Discussed lifestyle changes to address chronic illness. nephew ~Supported patient's personal health goals ~ ~different music, dropped a lot of old friend, made new ones and support each other ~ ~better mood, less SI Last Documented On 2 6:00PM ; [facility] Discussed nutritional needs teach healthy choices including fruits and vegetables Last Documented On 2 4:56PM ; [facility] Patient education about a pr oper diet Last Documented On 2 4:56PM ; [facility] Inquiry and counseling about medication administration and compliance Last Documented On 2 5:55PM ; [facility] Discussed concerns about exe rcise : promote physical activity Last Documented On 2 4:56PM ; [facility] Patient goals discussed Last Documented On 2 5:55PM ; [facility] Discussed current self-care methods/coping skills. ~Validated and normalized patient's feelings while assisting process recent events. ~Discussed lifestyle changes to address chronic illness. ~Supported patient's personal health goals Last Documented On 2 9:29PM ; [facility] Discussed nutritional needs teach healthy choices including fruits and vegetables Last Documented On 2 10:54AM ; [facility] Patient education about a pr oper diet Last Documented On 2 10:54AM ; [facility] Discussed concerns about exe rcise : promote physical activity Last Documented On 2 10:54AM ; [facility] Discussed current self-care methods/coping skills. ~Validated and normalized patient's feelings while assisting process recent events. ~Discussed lifestyle changes to address chronic illness. ~Supported patient's personal health goals Last Documented On 2 2:41PM ; [facility] Discussed nutritional needs teach healthy choices including fruits and vegetables Last Documented On 2 11:38AM ; [facility] Patient education about a pr oper diet Last Documented On 2 11:38AM ; [facility] Inquiry and counseling about medication administration and compliance Last Documented On 2 7:32PM ; [facility] Discussed concerns about exe rcise : promote physical activity Last Documented On 2 11:38AM ; [facility] Patient goals discussed Last Documented On 2 7:32PM ; [facility] Discussed nutritional needs teach healthy choices including fruits and vegetables Last Documented On 1 3:56PM ; [facility] Patient education about a pr oper diet Last Documented On 1 3:56PM ; [facility] Inquiry and counseling about medication administration and compliance Last Documented On 1 4:30PM ; [facility] Discussed concerns about exe rcise : promote physical activity Last Documented On 1 3:56PM ; [facility] Patient goals discussed Last Documented On 1 4:30PM ; [facility] Discussed current self-care methods/coping skills; ~Discussed EMDR and encouraged engament in counseling and psychiatric care.. ~Provided local resources including hotline number if needed Last Documented On 1 1:03AM ; [facility] Discussed nutritional needs teach healthy choices including fruits and vegetables Last Documented On 1 3:31PM ; [facility] Patient education about a pr oper diet Last Documented On 1 3:31PM ; [facility] Discussed concerns about exe rcise : promote physical activity Last Documented On 1 3:31PM ; [facility] Discussed nutritional needs teach healthy choices including fruits and vegetables Last Documented On 1 3:31PM ; [facility] Patient education about a pr oper diet Last Documented On 1 3:31PM ; [facility] Discussed concerns about exe rcise : promote physical activity Last Documented On 1 3:31PM ; [facility] provided active listenin g, support and helped patient process through current symptoms and stressors related to physical health concerns as well as mood and anxiety. ~[facility] reminded patient of importance of developing coping skills and supports. ~P discussed considering online counseling resources Last Documented On 1 2:22PM ; [facility] Discussed nutritional needs teach healthy choices including fruits and vegetables Last Documented On 1 1:51PM ; [facility] Patient education about a pr oper diet Last Documented On 1 1:51PM ; [facility] Discussed concerns about exe rcise : promote physical activity Last Documented On 1 1:51PM ; [facility] introduced patient to [facility] integrated model of care. ~[facility] offered active and supportive listening, normalized emotions and feelings, processed current stressors and explored coping and stress reducing skills. ~[facility] discussed importanced of coping skills and postive supports. [facility] discussed coping skills such as breathing and mindfulness and handouts on how to implement them. [facility] discussed importance of counseling and provided list of resources in the area for patient to establish care Last Documented On 1 1:33PM ; [facility] Discussed nutritional needs teach healthy choices including fruits and vegetables Last Documented On 1 2:38PM ; [facility] Patient education about a pr oper diet Last Documented On 1 2:38PM ; [facility] Inquiry and counseling about medication administration and compliance Last Documented On 1 8:18AM ; [facility] Discussed concerns about exe rcise : promote physical activity Last Documented On 1 2:38PM ; [facility] Patient goals discussed Last Documented On 1 8:18AM ; [facility] Work Phone: 1(280) 858-396512-20-2023 Evaluation note Includes: Assessments for all patient encounters Findings Encounter Date Moderate recurrent major depression BH E stablished Patient with Eufemia HAYES 06/24/2023 Last Documented On 3 5:15PM ; [facility] [E66.8 - Other obesity] obesity Medical Established Patient with Nargis Reynolds PROFESSIONAL PROGRAMMER ANALYST 06/24/2023 Last Documented On 3 6:42PM ; [facility] [Z68.42 - Body mass index [B NE] 45.0-49.9, adult] assessment of body mass index Medical Established Patient with Nargis Reynolds PROFESSIONAL PROGRAMMER ANALYST 06/24/2023 Last Documented On 3 6:42PM ; [facility] Venipuncture was performed Medical Estab lished Patient with Nargis Reynolds PROFESSIONAL PROGRAMMER ANALYST 06/24/2023 Last Documented On 3 6:42PM ; [facility] Acute post-traumatic stress disorder Established Patient with Nievescarine Cormier [employer] WORKER-[employer] 12/26/2022 Last Documented On 3 12:25PM ; [facility] Moderate recurrent major depression BH E stablished Patient with Nieves Casa [employer] WORKER[employer] 12/26/2022 Last Documented On 3 12:25PM ; [facility] [Body mass index [BMI] 45.0- 49.9, adult] assessment of body mass index Medical Established Patient with Yohan Blanca PROFESSIONAL PROGRAMMER ANALYST 12/26/2022 Last Documented On 3 8:24AM ; [facility] Moderate recurrent major depression Medi larisa Established Patient with Yohan Blanca PROFESSIONAL PROGRAMMER ANALYST 12/26/2022 Last Documented On 3 8:24AM ; [facility] Major depression, recurrent BH Establish ed Patient with Prachi Saha LPCC-S 10/08/2022 Last Documented On 3 4:17PM ; [facility] [Body mass index [BMI] 45.0- 49.9, adult] assessment of body mass index Medical Established Patient with Yohan Blanca PROFESSIONAL PROGRAMMER ANALYST 10/08/2022 Last Documented On 3 3:31PM ; [facility] Moderate recurrent major depression Medi larisa Established Patient with Yohan Blanca PROFESSIONAL PROGRAMMER ANALYST 10/08/2022 Last Documented On 3 3:31PM ; [facility] Palpitations Medical Established Patient with Yohan Blanca PROFESSIONAL PROGRAMMER ANALYST 10/08/2022 Last Documented On 3 3:31PM ; [facility] [Body mass index [BMI] 45.0- 49.9, adult] assessment of body mass index Medical Established Patient with Yohan Blanca PROFESSIONAL PROGRAMMER ANALYST 09/02/2022 Last Documented On 3 2:30PM ; [facility] Moderate recurrent major depression Medi larisa Established Patient with Yohan Blanca PROFESSIONAL PROGRAMMER ANALYST 09/02/2022 Last Documented On 3 2:30PM ; [facility] [Body mass index [BMI] 45.0- 49.9, adult] assessment of body mass index Medical Established Patient with Yohan Blanca PROFESSIONAL PROGRAMMER ANALYST 07/30/2022 Last Documented On 3 7:50AM ; [facility] [Moderate persistent asthma with (acute) exacerbation] moderate persistent asthma with acute exacerbation Medical Established Patient with Yohan Blanca PROFESSIONAL PROGRAMMER ANALYST 07/30/2022 Last Documented On 3 7:50AM ; [facility] Diabetes Risk Test Score was 5.0 score 07/30/2022 Medical Established Patient with Yohan Blanca PROFESSIONAL PROGRAMMER ANALYST 07/30/2022 Last Documented On 3 7:50AM ; [facility] Assessment of body mass inde x [Body mass index [BMI] 45.0-49.9, adult] Medical Established Patient with Yohan Blanca PROFESSIONAL PROGRAMMER ANALYST 03/04/2022 Last Documented On 2 5:57PM ; [facility] Lumbago Medical Established Patient with Yohan Blacna PROFESSIONAL PROGRAMMER ANALYST 03/04/2022 Last Documented On 2 5:57PM ; [facility] Moderate recurrent major depression BH E stablished Patient with Maia García LPCC-S 11/22/2021 Last Documented On 2 9:49PM ; [facility] Assessment of body mass inde x [Body mass index [BMI] 45.0-49.9, adult] Medical Established Patient with Yohan Blanca PROFESSIONAL PROGRAMMER ANALYST 11/22/2021 Last Documented On 2 7:42PM ; [facility] Assessment of hip joint pain worse while standing Medical Established Patient with Yohan Blanca PROFESSIONAL PROGRAMMER ANALYST 11/22/2021 Last Documented On 2 7:42PM ; [facility] Moderate recurrent major depression BH E stablished Patient with Maia García LPCC-S 08/12/2021 Last Documented On 2 9:29PM ; [facility] Assessment of body mass index Medical Es tablished Patient with Falguni Han PROFESSIONAL PROGRAMMER ANALYST 08/12/2021 Last Documented On 2 1:16PM ; [facility] Concussion Medical Established Patient with Falguni Guille PROFESSIONAL PROGRAMMER ANALYST 08/12/2021 Last Documented On 2 1:16PM ; [facility] Concussion injury of brain Medical Estab lished Patient with Falguni Guille PROFESSIONAL PROGRAMMER ANALYST 08/12/2021 Last Documented On 2 1:16PM ; [facility] Moderate recurrent major depression BH E stablished Patient with Maia García LPCC-S 08/05/2021 Last Documented On 2 2:41PM ; [facility] Assessment of body mass inde x [Body mass index [BMI] 45.0-49.9, adult] Medical Established Patient with Yohan Blanca PROFESSIONAL PROGRAMMER ANALYST 08/05/2021 Last Documented On 2 7:47PM ; [facility] Concussion injury of brain Medical Estab lished Patient with Yohan Blanca PROFESSIONAL PROGRAMMER ANALYST 08/05/2021 Last Documented On 2 7:47PM ; [facility] Diabetes Risk Test Score was four score 08/05/2021 Medical Established Patient with Yohan Blanca PROFESSIONAL PROGRAMMER ANALYST 08/05/2021 Last Documented On 2 7:47PM ; [facility] Assessment of body mass inde x [Body mass index [BMI] 45.0-49.9, adult] Medical Established Patient with Yohan Blanca PROFESSIONAL PROGRAMMER ANALYST 04/10/2021 Last Documented On 1 4:38PM ; [facility] Medical Established Patient with Yohan Blanca PROFESSIONAL PROGRAMMER ANALYST 04/10/2021 Last Documented On 1 4:38PM ; [facility] Mild recurrent major depression Medical Established Patient with Yohan Blanca PROFESSIONAL PROGRAMMER ANALYST 04/10/2021 Last Documented On 1 4:38PM ; [facility] Post-traumatic stress disorder BH Establ ished Patient with Maia García LPC-S 03/27/2021 Last Documented On 1 1:03AM ; [facility] Assessment of body mass index 48.7 Medic al Established Patient with Yohan Blanca PROFESSIONAL PROGRAMMER ANALYST 03/27/2021 Last Documented On 1 5:53PM ; [facility] Medical Established Patient with Yohan Blanca PROFESSIONAL PROGRAMMER ANALYST 03/27/2021 Last Documented On 1 5:53PM ; [facility] Mild recurrent major depression Medical Established Patient with Yohan Blanca PROFESSIONAL PROGRAMMER ANALYST 03/27/2021 Last Documented On 1 5:53PM ; [facility] Body mass index [Body mass i ndex [BMI] 45.0-49.9, adult] Medical Established Patient with Yohan Blanca PROFESSIONAL PROGRAMMER ANALYST 09/25/2020 Last Documented On 1 12:19PM ; [facility] Mild recurrent major depression Medical Established Patient with Yohan Blanca PROFESSIONAL PROGRAMMER ANALYST 09/25/2020 Last Documented On 1 12:19PM ; [facility] Morbid obesity Medical Established Patient with Yohan Blanca PROFESSIONAL PROGRAMMER ANALYST 09/25/2020 Last Documented On 1 12:19PM ; [facility] Generalized anxiety disorder BH Establis hed Patient with Eufemia Short LISWS 08/28/2020 Last Documented On 1 2:23PM ; [facility] Mild recurrent major depression BH Estab lished Patient with Eufemia Short LISWS 08/28/2020 Last Documented On 1 2:23PM ; [facility] Allergic bronchitis Medical Established Patient with Yohan Blanca PROFESSIONAL PROGRAMMER ANALYST 08/28/2020 Last Documented On 1 3:27PM ; [facility] Assessment of snoring Medical Established Patien t with Yohan Blanca PROFESSIONAL PROGRAMMER ANALYST 08/28/2020 Last Documented On 1 3:27PM ; [facility] Body mass index [Body mass i ndex [BMI] 45.0-49.9, adult] Medical Established Patient with Yohan Blanca PROFESSIONAL PROGRAMMER ANALYST 08/28/2020 Last Documented On 1 3:27PM ; [facility] Mild recurrent major depression Medical Established Patient with Yohan Blanca PROFESSIONAL PROGRAMMER ANALYST 08/28/2020 Last Documented On 1 3:27PM ; [facility] Morbid obesity Medical Established Patient with Yohan Blanca PROFESSIONAL PROGRAMMER ANALYST 08/28/2020 Last Documented On 1 3:27PM ; [facility] Generalized anxiety disorder BH Establis hed Patient with Eufemia Short LISWS 07/25/2020 Last Documented On 1 1:33PM ; [facility] Mild recurrent major depression BH Estab lished Patient with Eufemia Short LISWS 07/25/2020 Last Documented On 1 1:33PM ; [facility] Body mass index Medical New Patient with Yohan Blanca PROFESSIONAL PROGRAMMER ANALYST 07/25/2020 Last Documented On 1 9:00AM ; [facility] Diabetes Risk Test Score was five score 07/25/2020 Medical New Patient with Yohan Blanca PROFESSIONAL PROGRAMMER ANALYST 07/25/2020 Last Documented On 1 9:00AM ; [facility] Morbid obesity Medical New Patient with Yohan Blanca PROFESSIONAL PROGRAMMER ANALYST 07/25/2020 Last Documented On 1 9:00AM ; [facility] Work Phone: [phone]) 817-105212-20-2023 Evaluation note Includes: Assessments for all patient encounters Findings Encounter Date Moderate recurrent major depression BH E stablished Patient with Eufemia Wilkerson LISWS 06/24/2023 Last Documented On 3 5:23PM ; [facility] [E66.8 - Other obesity] obesity Medical Established Patient with Nargis Reynolds PROFESSIONAL PROGRAMMER ANALYST 06/24/2023 Last Documented On 3 6:42PM ; [facility] [Z68.42 - Body mass index [B NE] 45.0-49.9, adult] assessment of body mass index Medical Established Patient with Nargis Reynolds PROFESSIONAL PROGRAMMER ANALYST 06/24/2023 Last Documented On 3 6:42PM ; [facility] Venipuncture was performed Medical Estab lished Patient with Nargis Reynolds PROFESSIONAL PROGRAMMER ANALYST 06/24/2023 Last Documented On 3 6:42PM ; [facility] Acute post-traumatic stress disorder BH Established Patient with Nieves Isacugh [employer]SEM[employer]Y LINE WORKER-S 12/26/2022 Last Documented On 3 12:25PM ; [facility] Moderate recurrent major depression BH E stablished Patient with Nieves Slough [employer]SEM[employer] LINE WORKER-S 12/26/2022 Last Documented On 3 12:25PM ; [facility] [Body mass index [BMI] 45.0- 49.9, adult] assessment of body mass index Medical Established Patient with Yohan James PROFESSIONAL PROGRAMMER ANALYST 12/26/2022 Last Documented On 3 8:24AM ; [facility] Moderate recurrent major depression [facility] Established Patient with Yohan James PROFESSIONAL PROGRAMMER ANALYST 12/26/2022 Last Documented On 3 8:24AM ; [facility] Major depression, recurrent BH Establish ed Patient with Prachi Saha LPCC-S 10/08/2022 Last Documented On 3 4:17PM ; [facility] [Body mass index [BMI] 45.0- 49.9, adult] assessment of body mass index Medical Established Patient with Yohan James PROFESSIONAL PROGRAMMER ANALYST 10/08/2022 Last Documented On 3 3:31PM ; [facility] Moderate recurrent major depression Medi larisa Established Patient with Yohan Blanca PROFESSIONAL PROGRAMMER ANALYST 10/08/2022 Last Documented On 3 3:31PM ; [facility] Palpitations Medical Established Patient with Yohan Blanca PROFESSIONAL PROGRAMMER ANALYST 10/08/2022 Last Documented On 3 3:31PM ; [facility] [Body mass index [BMI] 45.0- 49.9, adult] assessment of body mass index Medical Established Patient with Yohan Blanca PROFESSIONAL PROGRAMMER ANALYST 09/02/2022 Last Documented On 3 2:30PM ; [facility] Moderate recurrent major depression Medi larisa Established Patient with Yohan Blanca PROFESSIONAL PROGRAMMER ANALYST 09/02/2022 Last Documented On 3 2:30PM ; [facility] [Body mass index [BMI] 45.0- 49.9, adult] assessment of body mass index Medical Established Patient with Yohan Blanca PROFESSIONAL PROGRAMMER ANALYST 07/30/2022 Last Documented On 3 7:50AM ; [facility] [Moderate persistent asthma with (acute) exacerbation] moderate persistent asthma with acute exacerbation Medical Established Patient with Yohan Blanca PROFESSIONAL PROGRAMMER ANALYST 07/30/2022 Last Documented On 3 7:50AM ; [facility] Diabetes Risk Test Score was 5.0 score 07/30/2022 Medical Established Patient with Yohan Blanca PROFESSIONAL PROGRAMMER ANALYST 07/30/2022 Last Documented On 3 7:50AM ; [facility] Assessment of body mass inde x [Body mass index [BMI] 45.0-49.9, adult] Medical Established Patient with Yohan Blanca PROFESSIONAL PROGRAMMER ANALYST 03/04/2022 Last Documented On 2 5:57PM ; [facility] Lumbago Medical Established Patient with Yohan Blanca PROFESSIONAL PROGRAMMER ANALYST 03/04/2022 Last Documented On 2 5:57PM ; [facility] Moderate recurrent major depression BH E stablished Patient with Maia García [facility] 11/22/2021 Last Documented On 2 9:49PM ; [facility] Assessment of body mass inde x [Body mass index [BMI] 45.0-49.9, adult] Medical Established Patient with Yohan Blanca PROFESSIONAL PROGRAMMER ANALYST 11/22/2021 Last Documented On 2 7:42PM ; [facility] Assessment of hip joint pain worse while standing Medical Established Patient with Yohan Blanca PROFESSIONAL PROGRAMMER ANALYST 11/22/2021 Last Documented On 2 7:42PM ; [facility] Moderate recurrent major depression BH E stablished Patient with Maia García LPCC-S 08/12/2021 Last Documented On 2 9:29PM ; [facility] Assessment of body mass index Medical Es tablished Patient with Falguni Han PROFESSIONAL PROGRAMMER ANALYST 08/12/2021 Last Documented On 2 1:16PM ; [facility] Concussion Medical Established Patient with Falguni Han PROFESSIONAL PROGRAMMER ANALYST 08/12/2021 Last Documented On 2 1:16PM ; [facility] Concussion injury of brain Medical Estab lished Patient with Falguni Han PROFESSIONAL PROGRAMMER ANALYST 08/12/2021 Last Documented On 2 1:16PM ; [facility] Moderate recurrent major depression BH E stablished Patient with Maia García LPCC-S 08/05/2021 Last Documented On 2 2:41PM ; [facility] Assessment of body mass inde x [Body mass index [BMI] 45.0-49.9, adult] Medical Established Patient with Yohan Blanca PROFESSIONAL PROGRAMMER ANALYST 08/05/2021 Last Documented On 2 7:47PM ; [facility] Concussion injury of brain Medical Estab lished Patient with Yohan Blanca PROFESSIONAL PROGRAMMER ANALYST 08/05/2021 Last Documented On 2 7:47PM ; [facility] Diabetes Risk Test Score was four score 08/05/2021 Medical Established Patient with Yohan Blanca PROFESSIONAL PROGRAMMER ANALYST 08/05/2021 Last Documented On 2 7:47PM ; [facility] Assessment of body mass inde x [Body mass index [BMI] 45.0-49.9, adult] Medical Established Patient with Yohan Blanca PROFESSIONAL PROGRAMMER ANALYST 04/10/2021 Last Documented On 1 4:38PM ; [facility] Lumbago Medical Established Patient with Yohan Blanca PROFESSIONAL PROGRAMMER ANALYST 04/10/2021 Last Documented On 1 4:38PM ; [facility] Mild recurrent major depression Medical Established Patient with Yohan Blanca PROFESSIONAL PROGRAMMER ANALYST 04/10/2021 Last Documented On 1 4:38PM ; [facility] Post-traumatic stress disorder BH Establ ished Patient with Maia García LPCC-S 03/27/2021 Last Documented On 1 1:03AM ; [facility] Assessment of body mass index 48.7 Medic al Established Patient with Yohan Blanca PROFESSIONAL PROGRAMMER ANALYST 03/27/2021 Last Documented On 1 5:53PM ; [facility] Lumbago Medical Established Patient with Yohan Blanca PROFESSIONAL PROGRAMMER ANALYST 03/27/2021 Last Documented On 1 5:53PM ; [facility] Mild recurrent major depression Medical Established Patient with Yohan Blanca PROFESSIONAL PROGRAMMER ANALYST 03/27/2021 Last Documented On 1 5:53PM ; [facility] Body mass index [Body mass i ndex [BMI] 45.0-49.9, adult] Medical Established Patient with Yohan Blanca PROFESSIONAL PROGRAMMER ANALYST 09/25/2020 Last Documented On 1 12:19PM ; [facility] Mild recurrent major depression Medical Established Patient with Yohan Blanca PROFESSIONAL PROGRAMMER ANALYST 09/25/2020 Last Documented On 1 12:19PM ; [facility] Morbid obesity Medical Established Patient with Yohan Blanca PROFESSIONAL PROGRAMMER ANALYST 09/25/2020 Last Documented On 1 12:19PM ; [facility] Generalized anxiety disorder Establis hed Patient with Eufemia Short LISWS 08/28/2020 Last Documented On 1 2:23PM ; [facility] Mild recurrent major depression Estab lished Patient with Eufemia Short LISWS 08/28/2020 Last Documented On 1 2:23PM ; [facility] Allergic bronchitis Medical Established Patient with Yohan Blanca PROFESSIONAL PROGRAMMER ANALYST 08/28/2020 Last Documented On 1 3:27PM ; [facility] Assessment of snoring Medical Established Patien t with Yohan Blanca PROFESSIONAL PROGRAMMER ANALYST 08/28/2020 Last Documented On 1 3:27PM ; [facility] Body mass index [Body mass i ndex [BMI] 45.0-49.9, adult] Medical Established Patient with Yohan Blanca PROFESSIONAL PROGRAMMER ANALYST 08/28/2020 Last Documented On 1 3:27PM ; [facility] Mild recurrent major depression Medical Established Patient with Yohan Blanca PROFESSIONAL PROGRAMMER ANALYST 08/28/2020 Last Documented On 1 3:27PM ; [facility] Morbid obesity Medical Established Patient with Yohan Blanca PROFESSIONAL PROGRAMMER ANALYST 08/28/2020 Last Documented On 1 3:27PM ; [facility] Generalized anxiety disorder Establis hed Patient with Eufemia Short LISWS 07/25/2020 Last Documented On 1 1:33PM ; [facility] Mild recurrent major depression BH Estab lished Patient with Eufemia Short LISWS 07/25/2020 Last Documented On 1 1:33PM ; [facility] Body mass index Medical New Patient with Yohan Blanca PROFESSIONAL PROGRAMMER ANALYST 07/25/2020 Last Documented On 1 9:00AM ; [facility] Diabetes Risk Test Score was five score 07/25/2020 Medical New Patient with Yohan Blanca PROFESSIONAL PROGRAMMER ANALYST 07/25/2020 Last Documented On 1 9:00AM ; [facility] Morbid obesity Medical New Patient with Yohan Blanca PROFESSIONAL PROGRAMMER ANALYST 07/25/2020 Last Documented On 1 9:00AM ; [facility] Work Phone: 1(787) 525-857212-20-2023 History general Narrative - Reported Includes: Medical History in patient's chart Description Last Updated Previously 0 time(s) 06/24/2023 Last Documented On 3 6:42PM ; [facility] No previous suicide attempt 12/26/2022 Last Documented On 3 12:25PM ; [facility] Not planning to have a baby in the next 12 months 07/30/2022 Last Documented On 3 7:50AM ; [facility] No previous hospitalizations 08/12/2021 Last Documented On 2 1:16PM ; [facility] Recent immunization for flu 08/05/2021 Last Documented On 2 7:47PM ; [facility] History of gynecologic disorder PCOS, en dometriosis 07/25/2020 Last Documented On 1 9:00AM ; [facility] Work Phone: 1(124) 244-648712-20-2023 History general Narrative - Reported Includes: Medical History in patient's chart Description Last Updated Previously 0 time(s) 06/24/2023 Last Documented On 3 6:42PM ; [facility] No previous suicide attempt 12/26/2022 Last Documented On 3 12:25PM ; [facility] Not planning to have a baby in the next 12 months 07/30/2022 Last Documented On 3 7:50AM ; [facility] No previous hospitalizations 08/12/2021 Last Documented On 2 1:16PM ; [facility] Recent immunization for flu 08/05/2021 Last Documented On 2 7:47PM ; [facility] History of gynecologic disorder PCOS, en dometriosis 07/25/2020 Last Documented On 1 9:00AM ; [facility] Work Phone: 1(253) 670-533712-20-2023 Progress note* Progress note Date Encounter Last Documented by 06/24/2023 Medical Established Patient Last documented on 06/24/2023; 6:42 PM, Nargis Reynolds CNP; [facility] Active Problems & Conditions - S06.0X0S - Concussion Injury of Brain - M25.552 - Joint Pain Hip Worse with Weightbearing Standing - M54.5 - Lumbago - F33.1 - Major Depression Recurrent Moderate - E66.8 - Obesity - E28.2 - Polycystic Ovarian Syndrome (Pcos) - R06.83 - Snoring Chief Complaint The Chief Complaint is: Dr. Ramesh FREY told patient to discuss with her PCP a weight loss medication. Patient is not interested in adipex, contrave, or qysmia. Patient has taken these meds before and they were not effective. Patient needs all meds refilled. Patient had ER visit last Thursday and was dx with pleuritic chest pains. Referred Here Referred by emergency room. Prior encounters. History of Present Illness Oswald Cox is a 27 year old female. - Allergy list reviewed - Reviewed Medications - Medication list reviewed - Date of last menstruation hysterectomy - test - would not like a test Presents normally seen by yohan james requesting weight loss meds has tried Qsymia, adipex and aontrave without results , works out 90-120 minuutes 3-4 times per week weight training and cardio , watches macros (advised macro jose on phone) has tried mercado diet Current Medication - *MEDICAL MARIJUANA Miscellaneous Miscellaneous (not specified) 0 days, 0 refills - busPIRone HCl 10 MG Oral Tablet TAKE ONE TABLET BY MOUTH TWICE A DAY, 30 days, 5 refills - Estradiol 0.1 MG/24HR Transdermal Patch Weekly change weeklyDr. Ramesh, 0 days, 0 refills - Ketorolac Tromethamine 10 MG Oral Tablet every 8 hours as neededPer Emergency room, 0 days, 0 refills - Paxil 30 MG Oral Tablet Take one tablet daily, 30 days, 5 refills - Irstbibgc-Vxjwbsgo-MW 30-2-10 MG/5ML Oral Syrup per Er doctor, 6 days, 0 refills - Singulair 10 MG Oral Tablet Take one tablet daily, 30 days, 6 refills - Symbicort 160-4.5 MCG/ACT Inhalation Aerosol 0 days, 0 refills - Ventolin HFA 108 (90 Base) MCG/ACT Inhalation Aerosol Solution Aerosol, solution inhale 1-2 puffs every 4-6 hours as needed for wheezing/shortness of breath, 30 days, 11 refills Past Medical/Surgical History Other: No previous suicide attempt Reported: Medical: No previous hospitalizations. : Previously 0 time(s). Not planning to have a baby in the next 12 months. Diagnoses: Gynecologic disorder PCOS, endometriosis Surgical: - Tonsillectomy 2006 - Tonsillectomy with adenoidectomy - General surgery exploratory laproscopic surgery- looking for endometriosis 11/2019 - Cholecystectomy 08/2015 - Hysterectomy - Total hysterectomy total lathroscopic hysterectomy with bilateral salpingoopherectomy 01/05/23 - Decompression of median nerve at carpal tunnel Carpal Tunnel Release right wrist 01/2021 Social History Environmental Exposure: No secondhand cigarette smoke exposure. Behavioral: Not a current tobacco user. Tobacco use: Not using electronic cigarettes/vaping. Alcohol: Not using alcohol. Drug Use: Using marijuana. Sexual: Not sexually active. Sexual orientation Straight (not lesbian or davis) and gender identity Female. Allergies - No Known Allergies Family History Paternal: Cardiovascular disorder heart attack at age 53 Systemic hypertension Maternal: Systemic hypertension Asthma Renal disorder Fraternal: Psychiatric disorders anxiety Sororal: Stroke syndrome age 16 Review Of Systems Head: No head symptoms. Neck: No neck symptoms. Eyes: No eye symptoms. Otolaryngeal: No ear symptoms, no nasal symptoms, no nose and sinus finding, no throat symptoms, no oral cavity symptoms, and no jaw symptoms. Breasts: No breast symptoms. Cardiovascular: No cardiovascular symptoms and no chest pain or discomfort. Pulmonary: No pulmonary symptoms. Gastrointestinal: No gastrointestinal symptoms. Genitourinary: No genitourinary symptoms. Musculoskeletal: No musculoskeletal symptoms. Neurological: No neurological symptoms. Psychological: No psychological symptoms. Skin: No skin symptoms. Physical Findings - Vitals taken 06/24/2023 04:15 pm BP-Sitting R132/83 mmHg BP Cuff SizeLarge Pulse Rate-Peywzfm14 bpm Xfhskz00 in Jchxhw593 lbs 6.4 oz Body Mass Index48.3 kg/m2 Body Surface Area2.6 m2 Oxygen Ewtejtqtlt96 % Vital Signs: - Systolic blood pressure 130 - 139 mmHg. - Diastolic blood pressure 80-89 mmHg. General Appearance: - Awake. - Alert. - Well developed. - Well nourished. - In no acute distress. Lungs: - Respiration rhythm and depth was normal. - Clear to auscultation. Cardiovascular: Heart Sounds: - Normal. Abdomen: Visual Inspection: - Abdomen was normal on visual inspection. Musculoskeletal System: General/bilateral: - Normal movement of all extremities. Skin: - General appearance was normal. Tests Laboratory-based Chemistry: Other Laboratory Tests: Screening for sexually transmitted infections was not performed. Laboratory Studies: Vascular Procedures: Right Antecubital Space. Assessment - Z68.42 - Body mass index [BMI] 45.0-49.9, adult - Z01.812 - Encounter for preprocedural laboratory examination - E66.8 - Other obesity Previous Tests Pathology: Cytology: Cervical Pap smear 08/27/2020. Therapy - Patient refused flu vaccine. Discussed benefits of flu vaccine with Patient. Vaccinations - Received dose of Reported: Patient has received the COVID Vaccine Counseling/Education - Does not want to stop using current contraception - Discussed nutritional needs teach healthy choices including fruits and vegetables - Patient education about a proper diet - Not requesting contraception - Discussed concerns about exercise: promote physical activity Plan StartCited- Body mass index [BMI] 45.0-49.9, adult Victoza 18 MG/3ML mL inject 0.6 mg per subcutaneous route once x 7 days then increase to 1.2 mg x 7 days then 1.8 mg, 30 days, 2 refills Assure ID Safety Pen [place] 31G X 5 MM unspecified use to inject victoza daily, 90 days, 3 refills Alcohol Pads 70% pad use to cleanse skin prior to victoza injection, 90 days, 3 refills EndCited StartCited- Generalized anxiety disorder busPIRone HCl 10 MG tablet TAKE ONE TABLET BY MOUTH TWICE A DAY, 30 days, 5 refills EndCited StartCited- Major depressive disorder, recurrent, moderate Paxil 30 MG tablet Take 1 tablet by mouth once daily, 30 days, 5 refills EndCited StartCited- Other Follow-up Appointment 1 month weight check /victoza EndCited StartCited- Other obesity Lab: Triiodothyronine (T3) Lab: TSH Lab: Thyroid Antibodies Lab: Free Thyroxine EndCited StartCited- Unspecified asthma, uncomplicated Singulair 10 MG tablet Take one tablet by mouth once daily, 30 days, 5 refills EndCited Other - Patient tolerated venipuncture well; - Number of attempts for venipuncture one Advance Directives - Living Will Health Reminders - Assess BMI satisfied 06/24/2023. - Assess Tobacco Use satisfied 06/24/2023. - Follow Up Plan BMI Management satisfied 06/24/2023. - PAP satisfied 08/27/2020. [facility]12[facility]20-[facility]23 Progress note* Progress note Date Encounter Last Documented by 06/24/2023 Established Patient Last docu mented on 06/25/2023; 5:23 PM, Eufemia HAYES; [facility] Active Problems & Conditions - S06.0X0S - Concussion Injury of Brain - M25.552 - Joint Pain Hip Worse with Weightbearing Standing - M54.5 - Lumbago - F33.1 - Major Depression Recurrent Moderate - E66.8 - Obesity - E28.2 - Polycystic Ovarian Syndrome (Pcos) - R06.83 - Snoring Chief Complaint The Chief Complaint is: [facility] met with patient to follow-up regarding mood and PHQ score of 0. Patient reports that after medication changes at last visit, mood and anxiety feel well controlled. Patient reports some stress with recently starting new job. Patient is concerned about weight and would like to discuss options for weight loss. Patient states that she has tried other medications in the past but did not help and is doing exercise and diet modifications. Patient reports no thoughts of harm toward self or others. History of Present Illness Oswald Cox is a 27 year old female. - No Irritability - Normal appetite - Anxiety attributed to starting new job recently - Energy level is good - No depression - No sleep disturbances - No loss of interest in activities - Not easily distracted - No racing thoughts - No social isolation - No impulsive behavior Current Medication - *MEDICAL MARIJUANA Miscellaneous 0 days, 0 refills - Alcohol Pads 70% use to cleanse skin prior to victoza injection, 90 days, 3 refills - Assure ID Safety Pen [place] 31G X 5 MM Miscellaneous (not specified) 31G X 5 MM use to inject victoza daily, 90 days, 3 refills - busPIRone HCl 10 MG Oral Tablet TAKE ONE TABLET BY MOUTH TWICE A DAY, 30 days, 5 refills - busPIRone HCl 10 MG Oral Tablet TAKE ONE TABLET BY MOUTH TWICE A DAY, 30 days, 5 refills - Estradiol 0.1 MG/24HR Transdermal Patch Weekly change weeklyDr. Ramesh, 0 days, 0 refills - Ketorolac Tromethamine 10 MG Oral Tablet every 8 hours as neededPer Emergency room, 0 days, 0 refills - Paxil 30 MG Oral Tablet Take 1 tablet by mouth once daily, 30 days, 5 refills - Paxil 30 MG Oral Tablet Take one tablet daily, 30 days, 5 refills - Yiwxeecns-Shvxjizt-TI 30-2-10 MG/5ML Oral Syrup per Er doctor, 6 days, 0 refills - Singulair 10 MG Oral Tablet Take one tablet by mouth once daily, 30 days, 5 refills - Singulair 10 MG Oral Tablet Take one tablet daily, 30 days, 6 refills - Symbicort 160-4.5 MCG/ACT Inhalation Aerosol 0 days, 0 refills - Ventolin HFA 108 (90 Base) MCG/ACT Inhalation Aerosol Solution inhale 1-2 puffs every 4-6 hours as needed for wheezing/shortness of breath, 30 days, 11 refills - Victoza 18 MG/3ML Subcutaneous Solution Pen-injector inject 0.6 mg per subcutaneous route once x 7 days then increase to 1.2 mg x 7 days then 1.8 mg, 30 days, 2 refills Social History Environmental Exposure: No secondhand cigarette smoke exposure. Personal: Job change. Behavioral: Not a current tobacco user. Alcohol: Not using alcohol. Drug Use: Marijuana by prescription. 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 Physical Findings General Appearance: - Normal Appearance. Neurological: - Estimated intelligence was normal. - Oriented to time, place, and person. - No hallucinations. - Judgement was not impaired. Speech: - Is Normal. Psychiatric: - Mood is Euthymic. - Attitude Open. Demonstrated Behavior: - Motor Activity Normal Activity. - Eye Contact Appropriate. Affect: - Congruent with the mood. Thought Content: - Insight was intact. - No delusions. - No suicidal ideation. - No Passive thoughts of . - No suicidal plans. - No suicidal intent. - No homicidal ideations. - No homicidal plans. - No homicidal intent. Past Medical: - No repetitive self injurious behavior. Assessment - F33.1 - Major depressive disorder, recurrent, moderate Therapy - Brief solution-focused therapy. - Adherent with medications. - Plan - do not modify medication as patient feels that medications are working well. PCP to send in Victoza for patient to start as well for weight loss. Patient agreeable to plan. Collaborated with patient and provider: Counseling/Education P offered active and supportive listening and normalized emotions and feelings related to new job. BHP discussed coping skills and stress management techniques to implement. BHP encouraged patient to implement helathy lifestyle changes in addition to medications. Plan Patient to take medications as prescribed and contact the office with any questions or concerns. Patient to implement coping skills and positive supports as discussed. BHP to follow-up with patient as scheduled. Advance Directives - Living Will Health Reminders - Assess Tobacco Use satisfied 06/24/2023. - JAIMIE-2 satisfied 06/24/2023. - PHQ9 / PHQA satisfied 06/24/2023. User Defined 1 JAIMIE-2 score was two 06/24/2023, JAIMIE-7 score [JAIMIE-7] Feeling nervous, anxious or on edge? + 2 pt : More than half the days, [JAIMIE-7] Not being able to stop or control worrying? + 0 pt : Not at all, Patient Health Questionnaire 9-Item total score was 0 06/24/2023, [PHQ-9-1] Little interest or pleasure in doing things? + 0 pt : Not at all, [PHQ-9-2] Feeling down, depressed, or hopeless? + 0 pt : Not at all, [PHQ-9-3] Trouble falling or staying asleep or sleeping too much? + 0 pt : Not at all, [PHQ-9-4] Feeling tired or having little energy? + 0 pt : Not at all, [PHQ-9-5] Poor appetite or overeating? + 0 pt : Not at all, [PHQ-9-6] Feeling bad about yourself-or that you are a failure + 0 pt : Not at all, [PHQ-9-7] Trouble concentrating on things such as reading the newspaper + 0 pt : Not at all, [PHQ-9-8] Moving or speaking so slowly that other people have noticed. + 0 pt : Not at all, and [PHQ-9-9] Thoughts that you would be better off or hurting yourself? + 0 pt : Not at all. [facility]07-19-2023 Hospital Discharge instructions* Discharge Instructions* Elfego Johnson DO - 01/21/2023 11:37 PM EDT Based on your leg swelling and recent surgery you have risk factors for potential DVT/blood. You been protected this evening by receiving a shot of Lovenox. Please return to the hospital tomorrow as directed to receive your outpatient venous duplex to check for a possible clot. If you have any further concerns please return to the ER for repeat evaluation * Attachments The following attachments cannot be sent through Care Everywhere. *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 Documented On 1 1:33PM ; [facility] Mild recurrent major depression BH Estab lished Patient with Eufemia Short LISWS 07/25/2020 Last Documented On 1 1:33PM ; [facility] Body mass index Medical New Patient with Yohan James PRUDENCIO 07/25/2020 Last Documented On 1 9:00AM ; [facility] Diabetes Risk Test Score was five score 07/25/2020 Medical New Patient with Yohan James PROFESSIONAL PROGRAMMER ANALYST 07/25/2020 Last Documented On 1 9:00AM ; [facility] Morbid obesity Medical New Patient with Yohan James PROFESSIONAL PROGRAMMER ANALYST 07/25/2020 Last Documented On 1 9:00AM ; [facility] Work Phone: [phone]) 631-695004-05-2023 Progress note* Progress note Date Encounter Last Documented by 10/08/2022 Medical Established Patient Last documented on 10/08/2022; 3:31 PM, Yohan Blanca FLANNERY; [facility] Active Problems & Conditions - J45.909 - Allergic Bronchitis - S06.0X0S - Concussion Injury of Brain - M25.552 - Joint Pain Hip Worse with Weightbearing Standing - M54.5 - Lumbago - F33.1 - Major Depression Recurrent Moderate - R00.2 - Palpitations - E28.2 - Polycystic Ovarian Syndrome (Pcos) - R06.83 - Snoring Chief Complaint The Chief Complaint is: Pt here for 6 week f/u, pt feels Paxil is working well. Pt would like CAM monitor results. Referred Here No prior encounters. History of Present Illness Oswald Cox is a 27 year old female. - Allergy list reviewed - Reviewed Medications Patient presents to follow up for mood States that mood is well controlled on paxil Discussed CAM monitor results, still reports multiple episodes of heart palpitations and pressure States she has a strong family history of heart disease Current Medication - *MEDICAL MARIJUANA Miscellaneous 0 days, 0 refills - busPIRone HCl 10 MG Oral Tablet TAKE ONE TABLET BY MOUTH TWICE A DAY, 30 days, 2 refills - Ipratropium-Albuterol 0.5-2.5 (3) MG/3ML Inhalation Solution Inhale 3ml per nebulizer every 4 hours as needed for shortness of breath, 10 days, 0 refills - Orilissa 150 MG Oral Tablet C4 PLANNER-Hedges, 0 days, 0 refills - Paxil 30 MG Oral Tablet Take one tablet daily, 30 days, 2 refills - Singulair 10 MG Oral Tablet Take one tablet daily, 30 days, 6 refills - Symbicort 160-4.5 MCG/ACT Inhalation Aerosol 0 days, 0 refills - Ventolin HFA 108 (90 Base) MCG/ACT Inhalation Aerosol Solution inhale 1-2 puffs every 4-6 hours as needed for wheezing/shortness of breath, 30 days, 11 refills Past Medical/Surgical History Reported: Medical: No previous hospitalizations. : Not planning to have a baby in the next 12 months. Diagnoses: Gynecologic disorder PCOS, endometriosis Surgical: - Tonsillectomy 2006 - Tonsillectomy with adenoidectomy - General surgery exploratory laproscopic surgery- looking for endometriosis 11/2019 - Cholecystectomy 08/2015 - Decompression of median nerve at carpal tunnel Carpal Tunnel Release right wrist 01/2021 Social History Environmental Exposure: No secondhand cigarette smoke exposure. Behavioral: Not a current tobacco user. Alcohol: A social drinker. Drug Use: Using marijuana. Sexual: Denied sexual activity, sexual orientation Straight (not lesbian or davis), and gender identity Female. Allergies - No Known Allergies Family History Paternal: Cardiovascular disorder heart attack at age 53 Systemic hypertension Maternal: Systemic hypertension Asthma Renal disorder Fraternal: Psychiatric disorders anxiety Sororal: Stroke syndrome age 16 Review Of Systems Systemic: Not feeling poorly (malaise). No fever and no chills. Head: No headache. Eyes: No vision problems. Otolaryngeal: No nasal discharge. Cardiovascular: No chest pain or discomfort. Palpitations. The heart rate was not fast. Pulmonary: Dyspnea. No cough and no wheezing. Gastrointestinal: No nausea and no vomiting. Genitourinary: No dysuria. Neurological: No motor disturbances. Skin: No rash. Physical Findings - Vitals taken 10/08/2022 02:35 pm BP-Sitting L131/75 mmHg Pulse Rate-Mfukrmm84 bpm Temp-Ytqdcgsi12.8 F Tregnn22 in Fpchqm128 lbs Body Mass Index49.5 kg/m2 Body Surface Area2.6 m2 Oxygen Fygbwmlxwh10 % General Appearance: - Well developed. - In no acute distress. Lungs: - Respiration rhythm and depth was normal. Abdomen: Visual Inspection: - Abdomen was normal on visual inspection. Neurological: - No disorientation was observed. Speech: - Normal. Motor: - Strength was normal. Gait And Stance: - Normal. Tests Educational Testing: In the Past 4 Weeks, Asthma kept me from getting much done at work/school/work? (4 Pts) A little of the Time, During the past 4 weeks, how often have you had shortness of breath? (4 Pts) Once or twice a week, During the past for 4 weeks, asthma symptoms woke me up at night or earlier than (4 Pts) Once or Twice, During the past 4 weeks, have used rescue inhaler or nebulizer medication (4 Pts) Once a week, and Asthma control during the past 4 weeks (4 Pts) Well controlled. Assessment - Body mass index [Body mass index [BMI] 45.0-49.9, adult] - Palpitations [Palpitations] - Moderate recurrent major depression [Major depressive disorder, recurrent, moderate] Test Conclusions Asthma Control Test (ACT), adult total score was 20 10/08/2022. Therapy - Patient refused flu vaccine. Discussed benefits of flu vaccine with Patient. Vaccinations - Received dose of Reported: Patient has received the COVID Vaccine Counseling/Education - Discussed nutritional needs teach healthy choices including fruits and vegetables - Patient education about a proper diet - Discussed concerns about exercise: promote physical activity Will send to cardiology for heart palpitations Follow up for mood in 6 months Plan StartCited- Generalized anxiety disorder busPIRone HCl 10 MG tablet TAKE ONE TABLET BY MOUTH TWICE A DAY, 30 days, 5 refills EndCited StartCited- Major depressive disorder, recurrent, moderate Paxil 30 MG tablet Take one tablet daily, 30 days, 2 refills EndCited StartCited- Palpitations Referrals: Cardiology Instructions: Please make a referral to: EndCited Practice Management Systolic blood pressure 130 - 139 mmHg and diastolic < 80 mmHg diastolic < 80 mmHg. Advance Directives - Living Will Health [facility]04-05-2023 Progress note* Progress note Date Encounter Last Documented by 10/08/2022 Established Patient Last docu mented on 10/08/2022; 4:17 PM, Prachi Saha [facility]; [facility] Active Problems & Conditions - J45.909 - Allergic Bronchitis - S06.0X0S - Concussion Injury of Brain - M25.552 - Joint Pain Hip Worse with Weightbearing Standing - M54.5 - Lumbago - F33.1 - Major Depression Recurrent Moderate - R00.2 - Palpitations - E28.2 - Polycystic Ovarian Syndrome (Pcos) - R06.83 - Snoring Subjective [facility] met with pt to explore and assess medication effectiveness; monitor mood, symptoms, and functioning. Pt reported Marco A farahes to be working well for her; reported she is doing well; verbalized having no significant issues or concerns to address with [facility]; confirmed willingness to contact the center, as needed. Chief Complaint The Chief Complaint is: Pt presents for 4/6 week f/up. Current Medication - *MEDICAL MARIJUANA Miscellaneous 0 days, 0 refills - busPIRone HCl 10 MG Oral Tablet TAKE ONE TABLET BY MOUTH TWICE A DAY, 30 days, 5 refills - busPIRone HCl 10 MG Oral Tablet TAKE ONE TABLET BY MOUTH TWICE A DAY, 30 days, 2 refills - Ipratropium-Albuterol 0.5-2.5 (3) MG/3ML Inhalation Solution Inhale 3ml per nebulizer every 4 hours as needed for shortness of breath, 10 days, 0 refills - Orilissa 150 MG Oral Tablet C4 PLANNER-Hedges, 0 days, 0 refills - Paxil 30 MG Oral Tablet Take one tablet daily, 30 days, 2 refills - Paxil 30 MG Oral Tablet Take one tablet daily, 30 days, 2 refills - Singulair 10 MG Oral Tablet Take one tablet daily, 30 days, 6 refills - Symbicort 160-4.5 MCG/ACT Inhalation Aerosol 0 days, 0 refills - Ventolin HFA 108 (90 Base) MCG/ACT Inhalation Aerosol Solution inhale 1-2 puffs every 4-6 hours as needed for wheezing/shortness of breath, 30 days, 11 refills Past Medical/Surgical History Reported: Medical: No previous hospitalizations. Immunization History: Recent immunization for flu. : Not planning to have a baby in the next 12 months. Diagnoses: Gynecologic disorder PCOS, endometriosis Surgical: - Tonsillectomy 2006 - Tonsillectomy with adenoidectomy - General surgery exploratory laproscopic surgery- looking for endometriosis 11/2019 - Cholecystectomy 08/2015 - Decompression of median nerve at carpal tunnel Carpal Tunnel Release right wrist 01/2021 Social History Environmental Exposure: No secondhand cigarette smoke exposure. Personal: Recent emotional stress. Behavioral: Not a current tobacco user. Tobacco use: No tobacco use and not using electronic cigarettes/vaping. Alcohol: Not using alcohol. A social drinker. Drug Use: Not using drugs denied by patient. Using marijuana. Sexual: Sexually active, denied sexual activity, sexual orientation Straight (not lesbian or davis), and gender identity Female. Allergies - No Known Allergies Family History Paternal: Cardiovascular disorder heart attack at age 53 Systemic hypertension Maternal: Systemic hypertension Asthma Renal disorder Fraternal: Psychiatric disorders anxiety Sororal: Stroke syndrome age 18 Physical Findings General Appearance: - Normal Appearance. Neurological: - Cognitive Functions was Normal. - Oriented to time, place, and person. - Executive Functions: Logical and organized. Speech: - Is Normal. Psychiatric: - Mood is Euthymic. - Attitude Open. Appearance: - Normal. Demonstrated Behavior: - Motor Activity Normal Activity. - Eye Contact Appropriate. Thought Processes: - Not impaired. Thought Content: - Revealed no impairment. - No suicidal ideation. - No suicidal plans. - No suicidal intent. Assessment - F33.1 - Major depressive disorder, recurrent, moderate Therapy - Brief solution-focused. Counseling/Education [facility] provided supportive listening and reflective feedback; provided pt space to share any concerns or problems impacting daily living. Acknowledged and normalized emotions. Promoted benefits of maintaining medication compliance, use healthy coping methods, and seek support, as needed. Plan Patient to implement coping skills and positive supports as discussed. Pt to take medications as prescribed and contact [facility] with any questions or concerns. [facility] to follow-up with patient at next visit in office, as necessary. Advance Directives - Living Will Health Reminders - Assess Tobacco Use satisfied 10/08/2022. [id number] History of Present illness Narrative* Kameron Mcguire, PT - 09/16/2022 1:30 PM EDT [facility] Outpatient Physical Therapy Evaluation Date: 09/16/2022 Patient: Oswald Cox : 1995 CSN #: [id number] Referring Physician: Johana Reyes MD Medical Diagnosis: M47.816 Facet arthropathy, lumbar Treatment Diagnosis: LB / L SIJ Pain Onset Date: 07/03/22 PT Insurance Information: [employer] Total # of Visits Approved: 12 Total # of Visits to Date: 1 No Show: 0 Canceled Appointment: 0 Subjective Subjective: Pt states she has been dealing with lower back and L hip pain for over a year now. Pt works on her feet all day, needing to bend and twist with up to 25# frequently on concrete floors. Pthas had multiple procedures done to lumbar facets with no relief. Pt notes her L hip catches as well, with lateral sensation issues along L thigh. Pt notes pain can radiate to L toes. Pt notes very mild relief with Tens and heat, no relief from medicines at this point in time. Pt notes pain ranges from 3/10 at best to 10/10 at worst and is throbbing and stabbing in nature. Additional Pertinent Hx: Panic Attacks, Asthma, Anxiety, Depression Observations: General Observations Description: forward flexed posture Palpation: Lumbar Spine Palpation: Mild increse in tenderness along B perispinals increasing intensity distally, greater on L compared to R. L SI tender to palpation > R with reproduction of symptoms. No tenderness noted along superior glute/QL B. Ambulation/Gait (if applicable): Ambulation Comments: Mild limitations to L hip movement during gait Balance Screen: Balance Single Stance R Leg: > 20s Single Stance L Leg: > 20s (discomfort) Objective PROM General PROM LE: PROM Assessed PROM LLE (degrees) L SLR: 60 L Hip Flexion (0-125): 95 L Hip External Rotation (0-45): 20 L Hip Internal Rotation (0-45): 10 R SLR: 80 R Flexion: 105 R ER: 30 R IR: 20 Strength Strength LLE L Hip Flexion: 4-/5 L Hip ABduction: 5/5 L Hip ADduction: 5/5 L Hip Internal Rotation: 4-/5 L Hip External Rotation: 4-/5 L Knee Flexion: 4-/5 L Knee Extension: 4-/5 L Ankle Dorsiflexion: 5/5 Strength RLE R Hip Flexion: 5/5 R Hip ABduction: 5/5 R Hip ADduction: 5/5 R Hip Internal Rotation: 5/5 R Hip External Rotation: 5/5 R Knee Flexion: 5/5 R Knee Extension: 5/5 R Ankle Dorsiflexion: 5/5 Lumbar Assessment AROM Lumbar Spine Lumbar Spine AROM : Painful Measured as: % of normal Flexion: 90 + Extension: 50 + Lateral Flexion Right: 75 Lateral Flexion Left: 50 + Right Rotation: 75 Left Rotation: 75 Joint Mobility (if applicable): Accessory Motion Assessment L3: Hypomobile L4: Hypomobile L5: Hypomobile, Painful Sacrum: Hypomobile, Painful Special Tests: Special Tests Lumbar Spine Lumbar Special Tests: Performed SLR: L (-), R (-) (symptoms present, not radicular in nature) Slump Test: R (-), L (-) Sacral Spring/Thrust Test: (+) Special Tests for Hip Hip Special Tests Performed: N/A Exercises: Exercise 1: HEP: MET, LTR, Hip Flexion Stretch, Hamstring Stretching Functional Outcome Measures Self-reported Pain Interference: 90% Assessment Body Structures, Functions, Activity Limitations Requiring Skilled Therapeutic Intervention: Decreased ADL status, Decreased ROM, Decreased body mechanics, Decreased tolerance to work activity, Decreased strength, Decreased endurance, Decreased high-level IADLs, Increased pain, Decreased posture Assessment: Pt is a pleasant 27 yo woman who presents with lumbar and L hip pain. Pt demonstrates limited lumbar mobility with increased pain across lumbar spine and L SI joint. Pt presents with limited L hip mobility compared to R with SLR limited to 60 degrees. Pt presents with increased tenderness along L perispinal muscles as well as along the L SI joint. Pt demonstrates with limited L hip strength and increased pain with resisted hip rotation as well as knee flexion and extension. Pt has suspected innominate rotation issue on L side along with documented lower lumbar issues. Pt would benefit from skilled therapy to improve functional mobility and strength to restore pt to PLOF. Therapy Prognosis: Good Decision Making: Medium Complexity Patient Education Patient Education: POC + HEP Pt verbalized/demonstrated good understanding: [X] Yes [] No, pt required further clarification. Goals Short Term Goals Time Frame for Short Term Goals: 3 weeks Short Term Goal 1: Pt to initiate HEP Short Term Goal 2: Pt to not exceed 8/10 pain to improve capacity for gentle stretching/exercise. Prison Goals Time Frame for [place] Goals : 6 weeks [place] Goal 1: Pt to be comfortable and complient with HEP [place] Goal 2: Pt to not exceed 4/10 pain to improve fucntional capacity for ADLs Prison Goal 3: Pt to improve L Hip/Knee MMT to >/= 4+/5 to improve functyional stability and reduce pain with ADLs [place] Goal 4: Pt to demonstrate L hip flexibility >/= 90% of uninvolved side to reduce muscle tension and reduce pain with ADLs. Patient Goals : being able to work and function without pain, figure out where pain is coming from Minutes Tracking: Time In: 1328 Time Out: 1426 Minutes: 58 Timed Code Treatment Minutes: 52 Minutes Kameron Mcguire PT, DPT 09/16/2022 documented in this encounterBON SourceYourCity Phone: 1(420) 715-629802-28-2023 Evaluation note Includes: Assessments for all patient encounters Findings Encounter Date [Body mass index [BMI] 45.0- 49.9, adult] assessment of body mass index Medical Established Patient with Yohan James PROFESSIONAL PROGRAMMER ANALYST 09/02/2022 Last Documented On 3 2:30PM ; [facility] Moderate recurrent major depression [facility] Established Patient with Yohan Stewarter PROFESSIONAL PROGRAMMER ANALYST 09/02/2022 Last Documented On 3 2:30PM ; [facility] [Body mass index [BMI] 45.0- 49.9, adult] assessment of body mass index Medical Established Patient with Yohan James PROFESSIONAL PROGRAMMER ANALYST 07/30/2022 Last Documented On 3 7:50AM ; [facility] [Moderate persistent asthma with (acute) exacerbation] moderate persistent asthma with acute exacerbation Medical Established Patient with Yohan James PROFESSIONAL PROGRAMMER ANALYST 07/30/2022 Last Documented On 3 7:50AM ; [facility] Diabetes Risk Test Score was 5.0 score 07/30/2022 Medical Established Patient with Yohan Blanca PROFESSIONAL PROGRAMMER ANALYST 07/30/2022 Last Documented On 3 7:50AM ; [facility] Assessment of body mass inde x [Body mass index [BMI] 45.0-49.9, adult] Medical Established Patient with Yohan Blanca PROFESSIONAL PROGRAMMER ANALYST 03/04/2022 Last Documented On 2 5:57PM ; [facility] Lumbago Medical Established Patient with Yohan Blanca PROFESSIONAL PROGRAMMER ANALYST 03/04/2022 Last Documented On 2 5:57PM ; [facility] Moderate recurrent major depression BH E stablished Patient with Maia García [facility] 11/22/2021 Last Documented On 2 9:49PM ; [facility] Assessment of body mass inde x [Body mass index [BMI] 45.0-49.9, adult] Medical Established Patient with Yohan Blanca PROFESSIONAL PROGRAMMER ANALYST 11/22/2021 Last Documented On 2 7:42PM ; [facility] Assessment of hip joint pain worse while standing Medical Established Patient with Yohan Blanca PROFESSIONAL PROGRAMMER ANALYST 11/22/2021 Last Documented On 2 7:42PM ; [facility] Moderate recurrent major depression BH E stablished [facility] 08/12/2021 Last Documented On 2 9:29PM ; [facility] Assessment of body mass index Medical Es tablished Patient with Falguni Guille PROFESSIONAL PROGRAMMER ANALYST 08/12/2021 Last Documented On 2 1:16PM ; [facility] Concussion Medical Established Patient with Falguni Guille PROFESSIONAL PROGRAMMER ANALYST 08/12/2021 Last Documented On 2 1:16PM ; [facility] Concussion injury of brain Medical Estab lished Patient with Falguninatalie Han PROFESSIONAL PROGRAMMER ANALYST 08/12/2021 Last Documented On 2 1:16PM ; [facility] Moderate recurrent major depression BH E stablished Patient with Maia García [facility] 08/05/2021 Last Documented On 2 2:41PM ; [facility] Assessment of body mass inde x [Body mass index [BMI] 45.0-49.9, adult] Medical Established Patient with Yohan Blanca PROFESSIONAL PROGRAMMER ANALYST 08/05/2021 Last Documented On 2 7:47PM ; [facility] Concussion injury of brain Medical Estab lished Patient with Yohan Blanca PROFESSIONAL PROGRAMMER ANALYST 08/05/2021 Last Documented On 2 7:47PM ; [facility] Diabetes Risk Test Score was four score 08/05/2021 Medical Established Patient with Yohan Blanca PROFESSIONAL PROGRAMMER ANALYST 08/05/2021 Last Documented On 2 7:47PM ; [facility] Assessment of body mass inde x [Body mass index [BMI] 45.0-49.9, adult] Medical Established Patient with Yohan Blanca PROFESSIONAL PROGRAMMER ANALYST 04/10/2021 Last Documented On 1 4:38PM ; [facility] Medical Established Patient with Yohan Blanca PROFESSIONAL PROGRAMMER ANALYST 04/10/2021 Last Documented On 1 4:38PM ; [facility] Mild recurrent major depression Medical Established Patient with Yohan Blanca PROFESSIONAL PROGRAMMER ANALYST 04/10/2021 Last Documented On 1 4:38PM ; [facility] Post-traumatic stress disorder BH Establ ished Patient with Maia García [facility] 03/27/2021 Last Documented On 1 1:03AM ; [facility] Assessment of body mass index 48.7 Medic al Established Patient with Yohan Blanca PROFESSIONAL PROGRAMMER ANALYST 03/27/2021 Last Documented On 1 5:53PM ; [facility] Medical Established Patient with Yohan Blanca PROFESSIONAL PROGRAMMER ANALYST 03/27/2021 Last Documented On 1 5:53PM ; [facility] Mild recurrent major depression Medical Established Patient with Yohna Blanca PROFESSIONAL PROGRAMMER ANALYST 03/27/2021 Last Documented On 1 5:53PM ; [facility] Body mass index [Body mass i ndex [BMI] 45.0-49.9, adult] Medical Established Patient with Yohan Blanca PROFESSIONAL PROGRAMMER ANALYST 09/25/2020 Last Documented On 1 12:19PM ; [facility] Mild recurrent major depression Medical Established Patient with Yohan Blanca PROFESSIONAL PROGRAMMER ANALYST 09/25/2020 Last Documented On 1 12:19PM ; [facility] Morbid obesity Medical Established Patient with Yohan Blanca PROFESSIONAL PROGRAMMER ANALYST 09/25/2020 Last Documented On 1 12:19PM ; [facility] Generalized anxiety disorder BH Establis hed Patient with Eufemia Short LISWS 08/28/2020 Last Documented On 1 2:23PM ; [facility] Mild recurrent major depression BH Estab lished Patient with Eufemia Short LISWS 08/28/2020 Last Documented On 1 2:23PM ; [facility] Allergic bronchitis Medical Established Patient with Yohan Blanca PROFESSIONAL PROGRAMMER ANALYST 08/28/2020 Last Documented On 1 3:27PM ; [facility] Assessment of snoring Medical Established Patien t with Yohan Blanca PROFESSIONAL PROGRAMMER ANALYST 08/28/2020 Last Documented On 1 3:27PM ; [facility] Body mass index [Body mass i ndex [BMI] 45.0-49.9, adult] Medical Established Patient with Yohan Blanca PROFESSIONAL PROGRAMMER ANALYST 08/28/2020 Last Documented On 1 3:27PM ; [facility] Mild recurrent major depression Medical Established Patient with Yohan Blanca PROFESSIONAL PROGRAMMER ANALYST 08/28/2020 Last Documented On 1 3:27PM ; [facility] Morbid obesity Medical Established Patient with Yohan Blanca PROFESSIONAL PROGRAMMER ANALYST 08/28/2020 Last Documented On 1 3:27PM ; [facility] Generalized anxiety disorder BH Establis hed Patient with Eufemia Short LISWS 07/25/2020 Last Documented On 1 1:33PM ; [facility] Mild recurrent major depression BH Estab lished Patient with Eufemia Short LISWS 07/25/2020 Last Documented On 1 1:33PM ; [facility] Body mass index Medical New Patient with Yohan Blanca PROFESSIONAL PROGRAMMER ANALYST 07/25/2020 Last Documented On 1 9:00AM ; [facility] Diabetes Risk Test Score was five score 07/25/2020 Medical New Patient with Yohan Blanca PROFESSIONAL PROGRAMMER ANALYST 07/25/2020 Last Documented On 1 9:00AM ; [facility] Morbid obesity Medical New Patient with Yohan Stewartdinah FLANNERY 07/25/2020 Last Documented On 1 9:00AM ; [facility] Work Phone: [phone]) 502-924102-28-2023 Progress note* Progress note Date Encounter Last Documented by 09/02/2022 Medical Established Patient Last documented on 09/02/2022; 2:30 PM, Yohan Blanca PRUDENCIO; [facility] Active Problems & Conditions - J45.909 - Allergic Bronchitis - S06.0X0S - Concussion Injury of Brain - M25.552 - Joint Pain Hip Worse with Weightbearing Standing - M54.5 - Lumbago - F33.1 - Major Depression Recurrent Moderate - R00.2 - Palpitations - E28.2 - Polycystic Ovarian Syndrome (Pcos) - R06.83 - Snoring Chief Complaint The Chief Complaint is: Pt here for 1 month f/u shortness of breath. Did see Pulmonology, no medication changes were made. Referred Here No prior encounters. History of Present Illness Oswald Cox is a 27 year old female. - Allergy list reviewed - Reviewed Medications - Date of last menstruation 08/19/2022 Patient presents to follow up Has followed up with pulmonolgy and OBGYN Started Orilissa from OBGYN and patient has noticed that her depression has gotten worse Continues to get heart palpitations that are making her dizzy Patient states that breathing is getting betting and is getting another CT in October to follow up on previous CT, then sees [facility] specialist in NOVEMBER Current Medication - *MEDICAL MARIJUANA Miscellaneous 0 days, 0 refills - busPIRone HCl 10 MG Oral Tablet TAKE ONE TABLET BY MOUTH TWICE A DAY, 30 days, 2 refills - Ipratropium-Albuterol 0.5-2.5 (3) MG/3ML Inhalation Solution Inhale 3ml per nebulizer every 4 hours as needed for shortness of breath, 10 days, 0 refills - Orilissa 150 MG Oral Tablet C4 PLANNER-Hedges, 0 days, 0 refills - Singulair 10 MG Oral Tablet Take one tablet daily, 30 days, 6 refills - Symbicort 160-4.5 MCG/ACT Inhalation Aerosol 0 days, 0 refills - Ventolin HFA 108 (90 Base) MCG/ACT Inhalation Aerosol Solution inhale 1-2 puffs every 4-6 hours as needed for wheezing/shortness of breath, 30 days, 11 refills Past Medical/Surgical History Reported: Medical: No previous hospitalizations. : Not planning to have a baby in the next 12 months. Diagnoses: Gynecologic disorder PCOS, endometriosis Surgical: - Tonsillectomy 2006 - Tonsillectomy with adenoidectomy - General surgery exploratory laproscopic surgery- looking for endometriosis 11/2019 - Cholecystectomy 08/2015 - Decompression of median nerve at carpal tunnel Carpal Tunnel Release right wrist 01/2021 Social History Environmental Exposure: No secondhand cigarette smoke exposure. Behavioral: Not a current tobacco user. Alcohol: A social drinker. Drug Use: Using marijuana. Sexual: Denied sexual activity, sexual orientation Straight (not lesbian or davis), and gender identity Female. Allergies - No Known Allergies Family History Paternal: Cardiovascular disorder heart attack at age 53 Systemic hypertension Maternal: Systemic hypertension Asthma Renal disorder Fraternal: Psychiatric disorders anxiety Sororal: Stroke syndrome age 18 Review Of Systems Systemic: Not feeling poorly (malaise). No fever and no chills. Head: No headache. Eyes: No vision problems. Otolaryngeal: No nasal discharge. Cardiovascular: No chest pain or discomfort. Palpitations. The heart rate was not fast. Pulmonary: Dyspnea. No cough and no wheezing. Gastrointestinal: No nausea and no vomiting. Genitourinary: No dysuria. Neurological: No motor disturbances. Sensory disturbances. Skin: No rash. Physical Findings - Vitals taken 09/02/2022 01:49 pm BP-Sitting R131/74 mmHg Pulse Rate-Rurezlh67 bpm Jhhezc61 in [id number] lbs Body Mass Index49.2 kg/m2 Body Surface Area2.6 m2 Oxygen [id number] % General Appearance: - Well developed. - In no acute distress. Lungs: - Abnormal breath sounds/voice sounds. - A decrease in breath sounds was heard. - Respiration rhythm and depth was normal. - No wheezing was heard. - No rhonchi were heard. - No rales/crackles were heard. Cardiovascular: Heart Rate And Rhythm: - Normal. Heart Sounds: - Normal. Edema: - Not present. Abdomen: Visual Inspection: - Abdomen was normal on visual inspection. Neurological: - No disorientation was observed. Speech: - Normal. Motor: - Strength was normal. Gait And Stance: - Normal. Assessment - Body mass index [Body mass index [BMI] 45.0-49.9, adult] - Moderate recurrent major depression [Major depressive disorder, recurrent, moderate] Therapy - Patient refused flu vaccine. Discussed benefits of flu vaccine with Patient. Vaccinations - Received dose of Reported: Patient has received the COVID Vaccine Counseling/Education - Discussed nutritional needs teach healthy choices including fruits and vegetables - Patient education about a proper diet - Discussed concerns about exercise: promote physical activity Follow up in 4-6 weeks Plan StartCited- Generalized anxiety disorder busPIRone HCl 10 MG tablet TAKE ONE TABLET BY MOUTH TWICE A DAY, 30 days, 2 refills EndCited StartCited- Major depressive disorder, recurrent, moderate Paxil 30 MG tablet Take one tablet daily, 30 days, 2 refills EndCited StartCited- Palpitations Outside Diagn Tests: Other Diagnostic Test: Instructions: [employer] AMBULATORY MONITOR 7 DAYS EndCited StartCited- Unspecified asthma, uncomplicated Singulair 10 MG tablet Take one tablet daily, 30 days, 6 refills EndCited Practice Management Systolic blood pressure 130 - 139 mmHg and diastolic < 80 mmHg diastolic < 80 mmHg. Advance Directives - Living Will [facility]01-25-2023 Instructions Includes: Instructions for all patient encounters Education and Decision Aids were provided during visit for: Discussed nutritional needs teach healthy choices including fruits and vegetables Last Documented On 3 2:49PM ; [facility] Patient education about a pr oper diet Last Documented On 3 2:49PM ; [facility] Patient education about an a sthma action plan Last Documented On 3 3:43PM ; [facility] Discussed concerns about exe rcise : promote physical activity ~ ~Due severity of current symptoms will try ipratropium-albuterol with nebulizer ~ ~Will give patient a steriod to take if breathing gets any worse ~ ~Call office or go to ER if breathing gets worse ~ ~Pumonologist appt on 08/14 ~ Last Documented On 3 4:09PM ; [facility] provided active listening ; encouraged, explored, and supported the pt as she processed current stressor(s) impacting mood and functioning. ~Discussed and supported personal health goals. ~Explored coping mechanisms and support system; encouraged use, when needed Last Documented On 2 9:03AM ; [facility] Discussed nutritional needs teach healthy choices including fruits and vegetables Last Documented On 2 5:07PM ; [facility] Patient education about a pr oper diet Last Documented On 2 5:07PM ; [facility] Discussed concerns about exe rcise : promote physical activity ~ ~Will write for work restrictions ~ ~Continue to follow up with specialist Last Documented On 2 5:57PM ; [facility] Discussed current self-care methods/coping skills. ~Validated and normalized pt?s feelings while assisting patient process recent events. ~Discussed ongoing counseling. ~Discussed lifestyle changes to address chronic illness. nephew ~Supported patient's personal health goals ~ ~different music, dropped a lot of old friend, made new ones and support each other ~ ~better mood, less SI Last Documented On 2 6:00PM ; [facility] Discussed nutritional needs teach healthy choices including fruits and vegetables Last Documented On 2 4:56PM ; [facility] Patient education about a pr oper diet Last Documented On 2 4:56PM ; [facility] Inquiry and counseling about medication administration and compliance Last Documented On 2 5:55PM ; [facility] Discussed concerns about exe rcise : promote physical activity Last Documented On 2 4:56PM ; [facility] Patient goals discussed Last Documented On 2 5:55PM ; [facility] Discussed current self-care methods/coping skills. ~Validated and normalized patient's feelings while assisting process recent events. ~Discussed lifestyle changes to address chronic illness. ~Supported patient's personal health goals Last Documented On 2 9:29PM ; [facility] Discussed nutritional needs teach healthy choices including fruits and vegetables Last Documented On 2 10:54AM ; [facility] Patient education about a pr oper diet Last Documented On 2 10:54AM ; [facility] Discussed concerns about exe rcise : promote physical activity Last Documented On 2 10:54AM ; [facility] Discussed current self-care methods/coping skills. ~Validated and normalized patient's feelings while assisting process recent events. ~Discussed lifestyle changes to address chronic illness. ~Supported patient's personal health goals Last Documented On 2 2:41PM ; [facility] Discussed nutritional needs teach healthy choices including fruits and vegetables Last Documented On 2 11:38AM ; [facility] Patient education about a pr oper diet Last Documented On 2 11:38AM ; [facility] Inquiry and counseling about medication administration and compliance Last Documented On 2 7:32PM ; [facility] Discussed concerns about exe rcise : promote physical activity Last Documented On 2 11:38AM ; [facility] Patient goals discussed Last Documented On 2 7:32PM ; [facility] Discussed nutritional needs teach healthy choices including fruits and vegetables Last Documented On 1 3:56PM ; [facility] Patient education about a pr oper diet Last Documented On 1 3:56PM ; [facility] Inquiry and counseling about medication administration and compliance Last Documented On 1 4:30PM ; [facility] Discussed concerns about exe rcise : promote physical activity Last Documented On 1 3:56PM ; [facility] Patient goals discussed Last Documented On 1 4:30PM ; [facility] Discussed current self-care methods/coping skills; ~Discussed EMDR and encouraged engament in counseling and psychiatric care.. ~Provided local resources including hotline number if needed Last Documented On 1 1:03AM ; [facility] Discussed nutritional needs teach healthy choices including fruits and vegetables Last Documented On 1 3:31PM ; [facility] Patient education about a pr oper diet Last Documented On 1 3:31PM ; [facility] Discussed concerns about exe rcise : promote physical activity Last Documented On 1 3:31PM ; [facility] Discussed nutritional needs teach healthy choices including fruits and vegetables Last Documented On 1 3:31PM ; [facility] Patient education about a pr oper diet Last Documented On 1 3:31PM ; [facility] Discussed concerns about exe rcise : promote physical activity Last Documented On 1 3:31PM ; [facility] provided active listenin g, support and helped patient process through current symptoms and stressors related to physical health concerns as well as mood and anxiety. ~P reminded patient of importance of developing coping skills and supports. ~[facility] discussed considering online counseling resources Last Documented On 1 2:22PM ; [facility] Discussed nutritional needs teach healthy choices including fruits and vegetables Last Documented On 1 1:51PM ; [facility] Patient education about a pr oper diet Last Documented On 1 1:51PM ; [facility] Discussed concerns about exe rcise : promote physical activity Last Documented On 1 1:51PM ; [facility] model of care. ~P offered active and supportive listening, normalized emotions and feelings, processed current stressors and explored coping and stress reducing skills. ~[facility] discussed importanced of coping skills and postive supports. [facility] discussed coping skills such as breathing and mindfulness and handouts on how to implement them. [facility] discussed importance of counseling and provided list of resources in the area for patient to establish care Last Documented On 1 1:33PM ; [facility] Discussed nutritional needs teach healthy choices including fruits and vegetables Last Documented On 1 2:38PM ; [facility] Patient education about a pr oper diet Last Documented On 1 2:38PM ; [facility] Inquiry and counseling about medication administration and compliance Last Documented On 1 8:18AM ; [facility] Discussed concerns about exe rcise : promote physical activity Last Documented On 1 2:38PM ; [facility] Patient goals discussed Last Documented On 1 8:18AM ; [facility] Work Phone: 1([phone]) 279-452901-25-2023 Instructions Includes: Instructions for all patient encounters Education and Decision Aids were provided during visit for: Discussed nutritional needs teach healthy choices including fruits and vegetables Last Documented On 3 2:49PM ; [facility] Patient education about a pr oper diet Last Documented On 3 2:49PM ; [facility] Patient education about an a sthma action plan Last Documented On 3 3:43PM ; [facility] Discussed concerns about exe rcise : promote physical activity ~ ~Due severity of current symptoms will try ipratropium-albuterol with nebulizer ~ ~Will give patient a steriod to take if breathing gets any worse ~ ~Call office or go to ER if breathing gets worse ~ ~Pumonologist appt on 08/14 ~ Last Documented On 3 4:09PM ; [facility] provided active listening ; encouraged, explored, and supported the pt as she processed current stressor(s) impacting mood and functioning. ~Discussed and supported personal health goals. ~Explored coping mechanisms and support system; encouraged use, when needed Last Documented On 2 9:03AM ; [facility] Discussed nutritional needs teach healthy choices including fruits and vegetables Last Documented On 2 5:07PM ; [facility] Patient education about a pr oper diet Last Documented On 2 5:07PM ; [facility] Discussed concerns about exe rcise : promote physical activity ~ ~Will write for work restrictions ~ ~Continue to follow up with specialist Last Documented On 2 5:57PM ; [facility] Discussed current self-care methods/coping skills. ~Validated and normalized pt?s feelings while assisting patient process recent events. ~Discussed ongoing counseling. ~Discussed lifestyle changes to address chronic illness. nephew ~Supported patient's personal health goals ~ ~different music, dropped a lot of old friend, made new ones and support each other ~ ~better mood, less SI Last Documented On 2 6:00PM ; [facility] Discussed nutritional needs teach healthy choices including fruits and vegetables Last Documented On 2 4:56PM ; [facility] Patient education about a pr oper diet Last Documented On 2 4:56PM ; [facility] Inquiry and counseling about medication administration and compliance Last Documented On 2 5:55PM ; [facility] Discussed concerns about exe rcise : promote physical activity Last Documented On 2 4:56PM ; [facility] Patient goals discussed Last Documented On 2 5:55PM ; [facility] Discussed current self-care methods/coping skills. ~Validated and normalized patient's feelings while assisting process recent events. ~Discussed lifestyle changes to address chronic illness. ~Supported patient's personal health goals Last Documented On 2 9:29PM ; [facility] Discussed nutritional needs teach healthy choices including fruits and vegetables Last Documented On 2 10:54AM ; [facility] Patient education about a pr oper diet Last Documented On 2 10:54AM ; [facility] Discussed concerns about exe rcise : promote physical activity Last Documented On 2 10:54AM ; [facility] Discussed current self-care methods/coping skills. ~Validated and normalized patient's feelings while assisting process recent events. ~Discussed lifestyle changes to address chronic illness. ~Supported patient's personal health goals Last Documented On 2 2:41PM ; [facility] Discussed nutritional needs teach healthy choices including fruits and vegetables Last Documented On 2 11:38AM ; [facility] Patient education about a pr oper diet Last Documented On 2 11:38AM ; [facility] Inquiry and counseling about medication administration and compliance Last Documented On 2 7:32PM ; [facility] Discussed concerns about exe rcise : promote physical activity Last Documented On 2 11:38AM ; [facility] Patient goals discussed Last Documented On 2 7:32PM ; [facility] Discussed nutritional needs teach healthy choices including fruits and vegetables Last Documented On 1 3:56PM ; [facility] Patient education about a pr oper diet Last Documented On 1 3:56PM ; [facility] Inquiry and counseling about medication administration and compliance Last Documented On 1 4:30PM ; [facility] Discussed concerns about exe rcise : promote physical activity Last Documented On 1 3:56PM ; [facility] Patient goals discussed Last Documented On 1 4:30PM ; [facility] Discussed current self-care methods/coping skills; ~Discussed EMDR and encouraged engament in counseling and psychiatric care.. ~Provided local resources including hotline number if needed Last Documented On 1 1:03AM ; [facility] Discussed nutritional needs teach healthy choices including fruits and vegetables Last Documented On 1 3:31PM ; [facility] Patient education about a pr oper diet Last Documented On 1 3:31PM ; [facility] Discussed concerns about exe rcise : promote physical activity Last Documented On 1 3:31PM ; [facility] Discussed nutritional needs teach healthy choices including fruits and vegetables Last Documented On 1 3:31PM ; [facility] Patient education about a pr oper diet Last Documented On 1 3:31PM ; [facility] Discussed concerns about exe rcise : promote physical activity Last Documented On 1 3:31PM ; [facility] provided active listenin g, support and helped patient process through current symptoms and stressors related to physical health concerns as well as mood and anxiety. ~P reminded patient of importance of developing coping skills and supports. ~[facility] discussed considering online counseling resources Last Documented On 1 2:22PM ; [facility] Discussed nutritional needs teach healthy choices including fruits and vegetables Last Documented On 1 1:51PM ; [facility] Patient education about a pr oper diet Last Documented On 1 1:51PM ; [facility] Discussed concerns about exe rcise : promote physical activity Last Documented On 1 1:51PM ; [facility] introduced patient to [facility] integrated model of care. ~[facility] offered active and supportive listening, normalized emotions and feelings, processed current stressors and explored coping and stress reducing skills. ~P discussed importanced of coping skills and postive supports. [facility] discussed coping skills such as breathing and mindfulness and handouts on how to implement them. [facility] discussed importance of counseling and provided list of resources in the area for patient to establish care Last Documented On 1 1:33PM ; [facility] Discussed nutritional needs teach healthy choices including fruits and vegetables Last Documented On 1 2:38PM ; [facility] Patient education about a pr oper diet Last Documented On 1 2:38PM ; [facility] Inquiry and counseling about medication administration and compliance Last Documented On 1 8:18AM ; [facility] Discussed concerns about exe rcise : promote physical activity Last Documented On 1 2:38PM ; [facility] Patient goals discussed Last Documented On 1 8:18AM ; [facility] Work Phone: [phone]) 692-930801-25-2023 Evaluation note Includes: Assessments for all patient encounters Findings Encounter Date [Body mass index [BMI] 45.0- 49.9, adult] assessment of body mass index Medical Established Patient with Yohan James PROFESSIONAL PROGRAMMER ANALYST 07/30/2022 Last Documented On 3 4:45PM ; [facility] [Moderate persistent asthma with (acute) exacerbation] moderate persistent asthma with acute exacerbation Medical Established Patient with Yohan James PROFESSIONAL PROGRAMMER ANALYST 07/30/2022 Last Documented On 3 4:45PM ; [facility] Diabetes Risk Test Score was 5.0 score 07/30/2022 Medical Established Patient with Yohan Stewarter PROFESSIONAL PROGRAMMER ANALYST 07/30/2022 Last Documented On 3 4:45PM ; [facility] Assessment of body mass inde x [Body mass index [BMI] 45.0-49.9, adult] Medical Established Patient with Yohan Stewarter PROFESSIONAL PROGRAMMER ANALYST 03/04/2022 Last Documented On 2 5:57PM ; [facility] Lumbago Medical Established Patient with Yohan Blanca PROFESSIONAL PROGRAMMER ANALYST 03/04/2022 Last Documented On 2 5:57PM ; [facility] Moderate recurrent major depression BH E stablished Patient with Maia García [facility] 11/22/2021 Last Documented On 2 9:49PM ; [facility] Assessment of body mass inde x [Body mass index [BMI] 45.0-49.9, adult] Medical Established Patient with Yohan Blanca PROFESSIONAL PROGRAMMER ANALYST 11/22/2021 Last Documented On 2 7:42PM ; [facility] Assessment of hip joint pain worse while standing Medical Established Patient with Yohan Blanca PROFESSIONAL PROGRAMMER ANALYST 11/22/2021 Last Documented On 2 7:42PM ; [facility] Moderate recurrent major depression BH E stablished Patient with Maia García [facility]CC-[facility] 08/12/2021 Last Documented On 2 9:29PM ; [facility] Assessment of body mass index Medical Es tablished Patient with Falguni Han PROFESSIONAL PROGRAMMER ANALYST 08/12/2021 Last Documented On 2 1:16PM ; [facility] Concussion Medical Established Patient with Falguni Guille PROFESSIONAL PROGRAMMER ANALYST 08/12/2021 Last Documented On 2 1:16PM ; [facility] Concussion injury of brain Medical Estab lished Patient with Falguni Guille PROFESSIONAL PROGRAMMER ANALYST 08/12/2021 Last Documented On 2 1:16PM ; [facility] Moderate recurrent major depression BH E stablished Patient with Maia García [facility] 08/05/2021 Last Documented On 2 2:41PM ; [facility] Assessment of body mass inde x [Body mass index [BMI] 45.0-49.9, adult] Medical Established Patient with Yohan Blanca PROFESSIONAL PROGRAMMER ANALYST 08/05/2021 Last Documented On 2 7:47PM ; [facility] Concussion injury of brain Medical Estab lished Patient with Yohan Blanca PROFESSIONAL PROGRAMMER ANALYST 08/05/2021 Last Documented On 2 7:47PM ; [facility] Diabetes Risk Test Score was four score 08/05/2021 Medical Established Patient with Yohan Blanca PROFESSIONAL PROGRAMMER ANALYST 08/05/2021 Last Documented On 2 7:47PM ; [facility] Assessment of body mass inde x [Body mass index [BMI] 45.0-49.9, adult] Medical Established Patient with Yohan Blanca PROFESSIONAL PROGRAMMER ANALYST 04/10/2021 Last Documented On 1 4:38PM ; [facility] Medical Established Patient with Yohan Blanca PROFESSIONAL PROGRAMMER ANALYST 04/10/2021 Last Documented On 1 4:38PM ; [facility] Mild recurrent major depression Medical Established Patient with Yohan Blanca PROFESSIONAL PROGRAMMER ANALYST 04/10/2021 Last Documented On 1 4:38PM ; [facility] Post-traumatic stress disorder Establ ished Patient with Maia García [facility] 03/27/2021 Last Documented On 1 1:03AM ; [facility] Assessment of body mass index 48.7 Medic al Established Patient with Yohan Blanca PROFESSIONAL PROGRAMMER ANALYST 03/27/2021 Last Documented On 1 5:53PM ; [facility] Medical Established Patient with Yohan Blanca PROFESSIONAL PROGRAMMER ANALYST 03/27/2021 Last Documented On 1 5:53PM ; [facility] Mild recurrent major depression Medical Established Patient with Yohan Blanca PROFESSIONAL PROGRAMMER ANALYST 03/27/2021 Last Documented On 1 5:53PM ; [facility] Body mass index [Body mass i ndex [BMI] 45.0-49.9, adult] Medical Established Patient with Yohan Blanca PROFESSIONAL PROGRAMMER ANALYST 09/25/2020 Last Documented On 1 12:19PM ; [facility] Mild recurrent major depression Medical Established Patient with Yohan Blanca PROFESSIONAL PROGRAMMER ANALYST 09/25/2020 Last Documented On 1 12:19PM ; [facility] Morbid obesity Medical Established Patient with Yohan Blanca PROFESSIONAL PROGRAMMER ANALYST 09/25/2020 Last Documented On 1 12:19PM ; [facility] Generalized anxiety disorder Establis hed Patient with Eufemia Short LISWS 08/28/2020 Last Documented On 1 2:23PM ; [facility] Mild recurrent major depression Estab lished Patient with Eufemia Short LISWS 08/28/2020 Last Documented On 1 2:23PM ; [facility] Allergic bronchitis Medical Established Patient with Yohan Blanca PROFESSIONAL PROGRAMMER ANALYST 08/28/2020 Last Documented On 1 3:27PM ; [facility] Assessment of snoring Medical Established Patien t with Yohan Blanca PROFESSIONAL PROGRAMMER ANALYST 08/28/2020 Last Documented On 1 3:27PM ; [facility] Body mass index [Body mass i ndex [BMI] 45.0-49.9, adult] Medical Established Patient with Yohan Blanca PROFESSIONAL PROGRAMMER ANALYST 08/28/2020 Last Documented On 1 3:27PM ; [facility] Mild recurrent major depression Medical Established Patient with Yohan Blanca PROFESSIONAL PROGRAMMER ANALYST 08/28/2020 Last Documented On 1 3:27PM ; [facility] Morbid obesity Medical Established Patient with Yohan Blanca PROFESSIONAL PROGRAMMER ANALYST 08/28/2020 Last Documented On 1 3:27PM ; [facility] Generalized anxiety disorder BH Establis hed Patient with Eufemia Short LISWS 07/25/2020 Last Documented On 1 1:33PM ; [facility] Mild recurrent major depression BH Estab lished Patient with Eufemia Short LISWS 07/25/2020 Last Documented On 1 1:33PM ; [facility] Body mass index Medical New Patient with Yohan Blanca PROFESSIONAL PROGRAMMER ANALYST 07/25/2020 Last Documented On 1 9:00AM ; [facility] Diabetes Risk Test Score was five score 07/25/2020 Medical New Patient with Yohan Blanca PROFESSIONAL PROGRAMMER ANALYST 07/25/2020 Last Documented On 1 9:00AM ; [facility] Morbid obesity Medical New Patient with Yohan Blanca PROFESSIONAL PROGRAMMER ANALYST 07/25/2020 Last Documented On 1 9:00AM ; [facility] Work Phone: 1([phone]) 461-874201-25-2023 Evaluation note Includes: Assessments for all patient encounters Findings Encounter Date [Body mass index [BMI] 45.0- 49.9, adult] assessment of body mass index Medical Established Patient with Yohan Blanca PROFESSIONAL PROGRAMMER ANALYST 07/30/2022 Last Documented On 3 7:50AM ; [facility] [Moderate persistent asthma with (acute) exacerbation] moderate persistent asthma with acute exacerbation Medical Established Patient with Yohan Blanca PROFESSIONAL PROGRAMMER ANALYST 07/30/2022 Last Documented On 3 7:50AM ; [facility] Diabetes Risk Test Score was 5.0 score 07/30/2022 Medical Established Patient with Yohan Blanca PROFESSIONAL PROGRAMMER ANALYST 07/30/2022 Last Documented On 3 7:50AM ; [facility] Assessment of body mass inde x [Body mass index [BMI] 45.0-49.9, adult] Medical Established Patient with Yohan Blanca PROFESSIONAL PROGRAMMER ANALYST 03/04/2022 Last Documented On 2 5:57PM ; [facility] Lumbago Medical Established Patient with Yohan Blanca PROFESSIONAL PROGRAMMER ANALYST 03/04/2022 Last Documented On 2 5:57PM ; [facility] Moderate recurrent major depression BH E stablished Patient with Maia García [facility]CC-S 11/22/2021 Last Documented On 2 9:49PM ; [facility] Assessment of body mass inde x [Body mass index [BMI] 45.0-49.9, adult] Medical Established Patient with Yohan Blanca PROFESSIONAL PROGRAMMER ANALYST 11/22/2021 Last Documented On 2 7:42PM ; [facility] Assessment of hip joint pain worse while standing Medical Established Patient with Yohan Blanca PROFESSIONAL PROGRAMMER ANALYST 11/22/2021 Last Documented On 2 7:42PM ; [facility] Moderate recurrent major depression BH E stablished Patient with Maia García [facility]CC-S 08/12/2021 Last Documented On 2 9:29PM ; [facility] Assessment of body mass index Medical Es tablished Patient with Falguni Han PROFESSIONAL PROGRAMMER ANALYST 08/12/2021 Last Documented On 2 1:16PM ; [facility] Concussion Medical Established Patient with Falguni Han PROFESSIONAL PROGRAMMER ANALYST 08/12/2021 Last Documented On 2 1:16PM ; [facility] Concussion injury of brain Medical Estab lished Patient with Falguni Han PROFESSIONAL PROGRAMMER ANALYST 08/12/2021 Last Documented On 2 1:16PM ; [facility] Moderate recurrent major depression BH E stablished Patient with Maiachang García [facility]CC-S 08/05/2021 Last Documented On 2 2:41PM ; [facility] Assessment of body mass inde x [Body mass index [BMI] 45.0-49.9, adult] Medical Established Patient with Yohan Blanca PROFESSIONAL PROGRAMMER ANALYST 08/05/2021 Last Documented On 2 7:47PM ; [facility] Concussion injury of brain Medical Estab lished Patient with Yohan Blanca PROFESSIONAL PROGRAMMER ANALYST 08/05/2021 Last Documented On 2 7:47PM ; [facility] Diabetes Risk Test Score was four score 08/05/2021 Medical Established Patient with Yohan Blanca PROFESSIONAL PROGRAMMER ANALYST 08/05/2021 Last Documented On 2 7:47PM ; [facility] Assessment of body mass inde x [Body mass index [BMI] 45.0-49.9, adult] Medical Established Patient with Yohan Blanca PROFESSIONAL PROGRAMMER ANALYST 04/10/2021 Last Documented On 1 4:38PM ; [facility] Established Patient with Yohan Blanca PROFESSIONAL PROGRAMMER ANALYST 04/10/2021 Last Documented On 1 4:38PM ; [facility] Mild recurrent major depression Medical Established Patient with Yohan Blanca PROFESSIONAL PROGRAMMER ANALYST 04/10/2021 Last Documented On 1 4:38PM ; [facility] Post-traumatic stress disorder BH Establ ished Patient with Maia García LPCC-S 03/27/2021 Last Documented On 1 1:03AM ; [facility] Assessment of body mass index 48.7 Medic al Established Patient with Yohan Blanca PROFESSIONAL PROGRAMMER ANALYST 03/27/2021 Last Documented On 1 5:53PM ; [facility] Established Patient with Yohan Blanca PROFESSIONAL PROGRAMMER ANALYST 03/27/2021 Last Documented On 1 5:53PM ; [facility] Mild recurrent major depression Medical Established Patient with Yohan Blanca PROFESSIONAL PROGRAMMER ANALYST 03/27/2021 Last Documented On 1 5:53PM ; [facility] Body mass index [Body mass i ndex [BMI] 45.0-49.9, adult] Medical Established Patient with Yohan Blanca PROFESSIONAL PROGRAMMER ANALYST 09/25/2020 Last Documented On 1 12:19PM ; [facility] Mild recurrent major depression Medical Established Patient with Yohan Blanca PROFESSIONAL PROGRAMMER ANALYST 09/25/2020 Last Documented On 1 12:19PM ; [facility] Morbid obesity Medical Established Patient with Yohan Blanca PROFESSIONAL PROGRAMMER ANALYST 09/25/2020 Last Documented On 1 12:19PM ; [facility] Generalized anxiety disorder BH Establis hed Patient with Eufemia Short LISWS 08/28/2020 Last Documented On 1 2:23PM ; [facility] Mild recurrent major depression BH Estab lished Patient with Eufemia Short LISWS 08/28/2020 Last Documented On 1 2:23PM ; [facility] Allergic bronchitis Medical Established Patient with Yohan Blanca PROFESSIONAL PROGRAMMER ANALYST 08/28/2020 Last Documented On 1 3:27PM ; [facility] Assessment of snoring Medical Established Patien t with Yohan Blanca PROFESSIONAL PROGRAMMER ANALYST 08/28/2020 Last Documented On 1 3:27PM ; [facility] Body mass index [Body mass i ndex [BMI] 45.0-49.9, adult] Medical Established Patient with Yohan Blanca PROFESSIONAL PROGRAMMER ANALYST 08/28/2020 Last Documented On 1 3:27PM ; [facility] Mild recurrent major depression Medical Established Patient with Yohan Blanca PROFESSIONAL PROGRAMMER ANALYST 08/28/2020 Last Documented On 1 3:27PM ; [facility] Morbid obesity Medical Established Patient with Yohan Blanca PROFESSIONAL PROGRAMMER ANALYST 08/28/2020 Last Documented On 1 3:27PM ; [facility] Generalized anxiety disorder BH Establis hed Patient with Eufemia Short LISWS 07/25/2020 Last Documented On 1 1:33PM ; [facility] Mild recurrent major depression BH Estab lished Patient with Eufemia Short LISWS 07/25/2020 Last Documented On 1 1:33PM ; [facility] Body mass index Medical New Patient with Yohan James PROFESSIONAL PROGRAMMER ANALYST 07/25/2020 Last Documented On 1 9:00AM ; [facility] Diabetes Risk Test Score was five score 07/25/2020 Medical New Patient with Yohan James PROFESSIONAL PROGRAMMER ANALYST 07/25/2020 Last Documented On 1 9:00AM ; [facility] Morbid obesity Medical New Patient with Yohan James PROFESSIONAL PROGRAMMER ANALYST 07/25/2020 Last Documented On 1 9:00AM ; [facility] Work Phone: 1(969) 388-371101-25-2023 History general Narrative - Reported Includes: Medical History in patient's chart Description Last Updated Not planning to have a baby in the next 12 months 07/30/2022 Last Documented On 3 4:45PM ; [facility] No previous hospitalizations 08/12/2021 Last Documented On 2 1:16PM ; [facility] Recent immunization for flu 08/05/2021 Last Documented On 2 7:47PM ; [facility] History of gynecologic disorder PCOS, en dometriosis 07/25/2020 Last Documented On 1 9:00AM ; [facility] Work Phone: [phone]) 346-905201-25-2023 History general Narrative - Reported Includes: Medical History in patient's chart Description Last Updated Not planning to have a baby in the next 12 months 07/30/2022 Last Documented On 3 7:50AM ; [facility] No previous hospitalizations 08/12/2021 Last Documented On 2 1:16PM ; [facility] Recent immunization for flu 08/05/2021 Last Documented On 2 7:47PM ; [facility] History of gynecologic disorder PCOS, en dometriosis 07/25/2020 Last Documented On 1 9:00AM ; [facility] Work Phone: [phone]) 309-610801-25-2023 History general Narrative - Reported Includes: Medical History in patient's chart Description Last Updated Not planning to have a baby in the next 12 months 07/30/2022 Last Documented On 3 7:50AM ; [facility] No previous hospitalizations 08/12/2021 Last Documented On 2 1:16PM ; [facility] Recent immunization for flu 08/05/2021 Last Documented On 2 7:47PM ; [facility] History of gynecologic disorder PCOS, en dometriosis 07/25/2020 Last Documented On 1 9:00AM ; [facility] Work Phone: [phone] 968-383301-25-2023 History general Narrative - Reported Includes: Medical History in patient's chart Description Last Updated Not planning to have a baby in the next 12 months 07/30/2022 Last Documented On 3 7:50AM ; [facility] No previous hospitalizations 08/12/2021 Last Documented On 2 1:16PM ; [facility] Recent immunization for flu 08/05/2021 Last Documented On 2 7:47PM ; [facility] History of gynecologic disorder PCOS, en dometriosis 07/25/2020 Last Documented On 1 9:00AM ; [facility] Work Phone: [phone]) 779-552101-25-2023 Progress note* Progress note Date Encounter Last Documented by 07/30/2022 Medical Established Patient Last documented on 07/31/2022; 4:45 PM, Yohan James CNP; [facility] Active Problems & Conditions - J45.909 - Allergic Bronchitis - S06.0X0S - Concussion Injury of Brain - M25.552 - Joint Pain Hip Worse with Weightbearing Standing - M54.5 - Lumbago - F33.1 - Major Depression Recurrent Moderate - E28.2 - Polycystic Ovarian Syndrome (Pcos) - R06.83 - Snoring Chief Complaint The Chief Complaint is: 6 month follow up and ER for shortness of breath and chest pain. Referred Here Not referred by urgent care clinic. Referred by emergency room. Prior encounters Pulmonology- [facility]. - Data to be reviewed: no clinical lab tests History of Present Illness Oswald Cox is a 26 year old female. - Reviewed Medications. Patient present for follow up asthma/covid infection Has been in hospital 3 times since the beginnning of July Thinks first one was due to anxiety This past viisit to ER 07/21 tested positive for covid, was given paxlovid, which made her feel better but is still currently short of breath Needs albuterol solution for nebulizer States that she is still short of breath and has chest tightness when she takes a deep breath. Current Medication - *MEDICAL MARIJUANA Miscellaneous 0 days, 0 refills - busPIRone HCl 10 MG Oral Tablet TAKE ONE TABLET BY MOUTH TWICE A DAY, 30 days, 2 refills - Paxil 20 MG Oral Tablet Take one tablet daily, 30 days, 5 refills - Singulair 10 MG Oral Tablet Take one tablet daily, 30 days, 6 refills - Symbicort 160-4.5 MCG/ACT Inhalation Aerosol 0 days, 0 refills - Ventolin HFA 108 (90 Base) MCG/ACT Inhalation Aerosol Solution inhale 1-2 puffs every 4-6 hours as needed for wheezing/shortness of breath, 30 days, 11 refills Past Medical/Surgical History Reported: Medical: No previous hospitalizations. : Not planning to have a baby in the next 12 months. Diagnoses: Gynecologic disorder PCOS, endometriosis Surgical: - Tonsillectomy 2006 - Tonsillectomy with adenoidectomy - General surgery exploratory laproscopic surgery- looking for endometriosis 11/2019 - Cholecystectomy 08/2015 - Decompression of median nerve at carpal tunnel Carpal Tunnel Release right wrist 01/2021 Social History Environmental Exposure: No secondhand cigarette smoke exposure. Behavioral: Not a current tobacco user. Tobacco use: Not using electronic cigarettes/vaping. Alcohol: Not using alcohol. Drug Use: Using marijuana. Sexual: Sexual orientation Straight (not lesbian or davis) and gender identity Female. Allergies - No Known Allergies Family History Paternal: Cardiovascular disorder heart attack at age 53 Systemic hypertension Maternal: Systemic hypertension Asthma Renal disorder Fraternal: Psychiatric disorders anxiety Sororal: Stroke syndrome age 16 Review Of Systems Systemic: Not feeling poorly (malaise). No fever and no chills. Head: No headache. Eyes: No vision problems. Otolaryngeal: No nasal discharge. Cardiovascular: No chest pain or discomfort, no palpitations, and the heart rate was not fast. Pulmonary: Dyspnea and cough. No wheezing. Gastrointestinal: No nausea and no vomiting. Genitourinary: No dysuria. Neurological: No motor disturbances. Sensory disturbances. Skin: No rash. Physical Findings - Vitals taken 07/30/2022 02:46 pm BP-Sitting L147/99 mmHg BP Cuff SizeRegular Pulse Rate-Ydhanxl57 bpm Pulse RhythmRegular Temp-Gsgdgxom43.2 F Jnudvg76 in Ndtzyl059 lbs 9.6 oz Body Mass Index48.6 kg/m2 Body Surface Area2.6 m2 Oxygen Wtxfkhpfzn72 % - Vitals taken 07/30/2022 03:29 pm BP-Sitting L142/90 mmHg BP Cuff SizeRegular Pulse RhythmRegular - Vitals taken 07/30/2022 04:12 pm BP-Sitting R137/89 mmHg BP Cuff SizeLarge Pulse RhythmRegular General Appearance: - Well developed. - In no acute distress. Lungs: - Abnormal breath sounds/voice sounds. - A decrease in breath sounds was heard. - Respiration rhythm and depth was normal. - No wheezing was heard. - No rhonchi were heard. - No rales/crackles were heard. Cardiovascular: Heart Rate And Rhythm: - Normal. Heart Sounds: - Normal. Edema: - Not present. Abdomen: Visual Inspection: - Abdomen was normal on visual inspection. Auscultation: - Bowel sounds were normal. Neurological: - No disorientation was observed. Speech: - Normal. Motor: - Strength was normal. Gait And Stance: - Normal. Tests Blood Analysis: Blood Endocrine Laboratory Tests: ValueDate Blood glucose level by fingerstick Non-fasting 68 mg/dl07/30/2022 Blood hemoglobin A1c 5.0%07/30/2022 Laboratory Studies: Pulmonary Function Tests: Value Green Range 184 Best Peak Flow 230 Low Yellow Range 115 Red Range 115 High Yellow Range 184 Educational Testing: In the Past 4 Weeks, Asthma kept me from getting much done at work/school/work? (1 Pt) All of the Time, During the past 4 weeks, how often have you had shortness of breath? (1 Pt) More than once a day, During the past for 4 weeks, asthma symptoms woke me up at night or earlier than (1 Pt) 4 or more nights a week, During the past 4 weeks, have used rescue inhaler or nebulizer medication (2 Pts) 1 or 2 times per day, and Asthma control during the past 4 weeks (2 Pts) Poorly controlled. Assessment - Body mass index [Body mass index [BMI] 45.0-49.9, adult] - Diabetes Risk Test Score was 5.0 score 07/30/2022 [Encounter for screening for diabetes mellitus] - Moderate persistent asthma with acute exacerbation [Moderate persistent asthma with (acute) exacerbation] Test Conclusions Asthma Control Test (ACT), adult total score was 7.0 07/30/2022. Therapy - Patient refused flu vaccine. Discussed benefits of flu vaccine with Patient. - SBIRT Screen Neg. - SBIRT Full Screen Neg. Vaccinations - Received dose of Reported: Patient has received the COVID Vaccine Counseling/Education - Discussed nutritional needs teach healthy choices including fruits and vegetables - Patient education about a proper diet - Patient education about an asthma action plan - Discussed concerns about exercise: promote physical activity Due severity of current symptoms will try ipratropium-albuterol with nebulizer Will give patient a steriod to take if breathing gets any worse Call office or go to ER if breathing gets worse Pumonologist appt on 08/14 Plan StartCited- Moderate persistent asthma with (acute) exacerbation Ipratropium-Albuterol 0.5-2.5 (3) MG/3ML mL Inhale 3ml per nebulizer every 4 hours as needed for shortness of breath, 10 days, 0 refills predniSONE 20 MG tablet Take one tablet two times a day for 5 days, 5 days, 0 refills EndCited Notes - Patient is not interested in the COVID-19 vaccination at this time. Practice Management Hemoglobin A1c level < 7.0%, for blood pressure systolic < 140 mmHg systolic 130 - 139 mmHg systolic 130 - 139 mmHg, and diastolic 80-89 mmHg diastolic 80-89 mmHg. Advance Directives - Living Will User Defined 1 Not afraid of someone you have a relationship with No. Has lack of transportation kept patient from medical appointments or from getting medications: No and lack of transportation has kept patient from beneficial non-medical activities: No. She has not had 4 or more drinks in a day within the past year. Do you feel stress - tense, restless, nervous, or anxious, or unable to sleep at night because your mind is troubled all the time - these days? Quite a bit, Yes (1 point) [Pre-DM]: Yes, mother, father, sister or brother has DM, No (0 points) [Pre-DM]: No, patient has not been diagnosed with high blood pressure, No (0 points) [Pre-DM]: Patient has not been diagnosed with gestational diabetes or given to a baby weighing 9 pounds or more, and No (1 point) [Pre-DM]: No, not physically active. No misuse of prescription only drugs and not illicit. Does patient feel physically and emotionally safe where he/she lives: Yes. Is patient is worried about losing housing: No. What is the highest grade or level of school you have completed or the highest degree you have received? More than high school. In the past year, patient or family members in household were unable to get needed clothing: No, unable to get needed childcare administrator: No, unable to get needed phone: No, unable to get needed utilities: No, unable to get needed Medicine or Health Care: No, and In the past year, patient or family members in household were unable to get needed food: No. How often does patient see or talk to people that that he/she cares about and feels close to: 5 or more times a week and Woman (0 Points) [Pre-DM]. PHQ-9: total score was 0 07/30/2022, [PHQ-9-1] Little interest or pleasure in doing things? + 0 pt : Not at all, [PHQ-9-2] Feeling down, depressed, or hopeless? + 0 pt : Not at all, [PHQ-9-3] Trouble falling or staying asleep or sleeping too much? + 0 pt : Not at all, [PHQ-9-4] Feeling tired or having little energy? + 0 pt : Not at all, [PHQ-9-5] Poor appetite or overeating? + 0 pt : Not at all, [PHQ-9-6] Feeling bad about yourself-or that you are a failure + 0 pt : Not at all, [PHQ-9-7] Trouble concentrating on things such as reading the newspaper + 0 pt : Not at all, [PHQ-9-8] Moving or speaking so slowly that other people have noticed. + 0 pt : Not at all, [PHQ-9-9] Thoughts that you would be better off or hurting yourself? + 0 pt : Not at all, and Less than 40 years (0 points) [Pre-DM]. [facility]01-25-2023 Progress note* Progress note Date Encounter Last Documented by 07/30/2022 Medical Established Patient Last documented on 08/04/2022; 7:50 AM, Yohan James CNP; [facility] Active Problems & Conditions - J45.909 - Allergic Bronchitis - S06.0X0S - Concussion Injury of Brain - M25.552 - Joint Pain Hip Worse with Weightbearing Standing - M54.5 - Lumbago - F33.1 - Major Depression Recurrent Moderate - E28.2 - Polycystic Ovarian Syndrome (Pcos) - R06.83 - Snoring Chief Complaint The Chief Complaint is: 6 month follow up and ER for shortness of breath and chest pain. Referred Here Not referred by urgent care clinic. Referred by emergency room. Prior encounters Pulmonology- [facility]. - Data to be reviewed: no clinical lab tests History of Present Illness Oswald Cox is a 26 year old female. - Reviewed Medications. Patient present for follow up asthma/covid infection Has been in hospital 3 times since the beginnning of July Thinks first one was due to anxiety This past viisit to ER 07/21 tested positive for covid, was given paxlovid, which made her feel better but is still currently short of breath Needs albuterol solution for nebulizer States that she is still short of breath and has chest tightness when she takes a deep breath. Current Medication - *MEDICAL MARIJUANA Miscellaneous 0 days, 0 refills - busPIRone HCl 10 MG Oral Tablet TAKE ONE TABLET BY MOUTH TWICE A DAY, 30 days, 2 refills - Paxil 20 MG Oral Tablet Take one tablet daily, 30 days, 5 refills - Singulair 10 MG Oral Tablet Take one tablet daily, 30 days, 6 refills - Symbicort 160-4.5 MCG/ACT Inhalation Aerosol 0 days, 0 refills - Ventolin HFA 108 (90 Base) MCG/ACT Inhalation Aerosol Solution inhale 1-2 puffs every 4-6 hours as needed for wheezing/shortness of breath, 30 days, 11 refills Past Medical/Surgical History Reported: Medical: No previous hospitalizations. : Not planning to have a baby in the next 12 months. Diagnoses: Gynecologic disorder PCOS, endometriosis Surgical: - Tonsillectomy 2006 - Tonsillectomy with adenoidectomy - General surgery exploratory laproscopic surgery- looking for endometriosis 11/2019 - Cholecystectomy 08/2015 - Decompression of median nerve at carpal tunnel Carpal Tunnel Release right wrist 01/2021 Social History Environmental Exposure: No secondhand cigarette smoke exposure. Behavioral: Not a current tobacco user. Tobacco use: Not using electronic cigarettes/vaping. Alcohol: Not using alcohol. Drug Use: Using marijuana. Sexual: Sexual orientation Straight (not lesbian or davis) and gender identity Female. Allergies - No Known Allergies Family History Paternal: Cardiovascular disorder heart attack at age 53 Systemic hypertension Maternal: Systemic hypertension Asthma Renal disorder Fraternal: Psychiatric disorders anxiety Sororal: Stroke syndrome age 16 Review Of Systems Systemic: Not feeling poorly (malaise). No fever and no chills. Head: No headache. Eyes: No vision problems. Otolaryngeal: No nasal discharge. Cardiovascular: No chest pain or discomfort, no palpitations, and the heart rate was not fast. Pulmonary: Dyspnea and cough. No wheezing. Gastrointestinal: No nausea and no vomiting. Genitourinary: No dysuria. Neurological: No motor disturbances. Sensory disturbances. Skin: No rash. Physical Findings - Vitals taken 07/30/2022 02:46 pm BP-Sitting L147/99 mmHg BP Cuff SizeRegular Pulse Rate-Tzsnydi50 bpm Pulse RhythmRegular Temp-Axjumwey18.2 F Admval30 in Wztuer940 lbs 9.6 oz Body Mass Index48.6 kg/m2 Body Surface Area2.6 m2 Oxygen Vitewohcgm94 % - Vitals taken 07/30/2022 03:29 pm BP-Sitting L142/90 mmHg BP Cuff SizeRegular Pulse RhythmRegular - Vitals taken 07/30/2022 04:12 pm BP-Sitting R137/89 mmHg BP Cuff SizeLarge Pulse RhythmRegular General Appearance: - Well developed. - In no acute distress. Lungs: - Abnormal breath sounds/voice sounds. - A decrease in breath sounds was heard. - Respiration rhythm and depth was normal. - No wheezing was heard. - No rhonchi were heard. - No rales/crackles were heard. Cardiovascular: Heart Rate And Rhythm: - Normal. Heart Sounds: - Normal. Edema: - Not present. Abdomen: Visual Inspection: - Abdomen was normal on visual inspection. Auscultation: - Bowel sounds were normal. Neurological: - No disorientation was observed. Speech: - Normal. Motor: - Strength was normal. Gait And Stance: - Normal. Tests Blood Analysis: Blood Endocrine Laboratory Tests: ValueDate Blood glucose level by fingerstick Non-fasting 68 mg/dl07/30/2022 Blood hemoglobin A1c 5.0%07/30/2022 Laboratory Studies: Pulmonary Function Tests: Value Green Range 184 Best Peak Flow 230 Low Yellow Range 115 Red Range 115 High Yellow Range 184 Educational Testing: In the Past 4 Weeks, Asthma kept me from getting much done at work/school/work? (1 Pt) All of the Time, During the past 4 weeks, how often have you had shortness of breath? (1 Pt) More than once a day, During the past for 4 weeks, asthma symptoms woke me up at night or earlier than (1 Pt) 4 or more nights a week, During the past 4 weeks, have used rescue inhaler or nebulizer medication (2 Pts) 1 or 2 times per day, and Asthma control during the past 4 weeks (2 Pts) Poorly controlled. Assessment - Body mass index [Body mass index [BMI] 45.0-49.9, adult] - Diabetes Risk Test Score was 5.0 score 07/30/2022 [Encounter for screening for diabetes mellitus] - Moderate persistent asthma with acute exacerbation [Moderate persistent asthma with (acute) exacerbation] Test Conclusions Asthma Control Test (ACT), adult total score was 7.0 07/30/2022. Therapy - Patient refused flu vaccine. Discussed benefits of flu vaccine with Patient. - SBIRT Screen Neg. - SBIRT Full Screen Neg. Vaccinations - Received dose of Reported: Patient has received the COVID Vaccine Counseling/Education - Discussed nutritional needs teach healthy choices including fruits and vegetables - Patient education about a proper diet - Patient education about an asthma action plan - Discussed concerns about exercise: promote physical activity Due severity of current symptoms will try ipratropium-albuterol with nebulizer Will give patient a steriod to take if breathing gets any worse Call office or go to ER if breathing gets worse Pumonologist appt on 08/14 Plan StartCited- Moderate persistent asthma with (acute) exacerbation Ipratropium-Albuterol 0.5-2.5 (3) MG/3ML mL Inhale 3ml per nebulizer every 4 hours as needed for shortness of breath, 10 days, 0 refills predniSONE 20 MG tablet Take one tablet two times a day for 5 days, 5 days, 0 refills EndCited Notes - Patient is not interested in the COVID-19 vaccination at this time. Practice Management Hemoglobin A1c level < 7.0%, for blood pressure systolic < 140 mmHg systolic 130 - 139 mmHg systolic 130 - 139 mmHg, and diastolic 80-89 mmHg diastolic 80-89 mmHg. Advance Directives - Living Will User Defined 1 Not afraid of someone you have a relationship with No. Has lack of transportation kept patient from medical appointments or from getting medications: No and lack of transportation has kept patient from beneficial non-medical activities: No. She has not had 4 or more drinks in a day within the past year. Do you feel stress - tense, restless, nervous, or anxious, or unable to sleep at night because your mind is troubled all the time - these days? Quite a bit, Yes (1 point) [Pre-DM]: Yes, mother, father, sister or brother has DM, No (0 points) [Pre-DM]: No, patient has not been diagnosed with high blood pressure, No (0 points) [Pre-DM]: Patient has not been diagnosed with gestational diabetes or given to a baby weighing 9 pounds or more, and No (1 point) [Pre-DM]: No, not physically active. No misuse of prescription only drugs and not illicit. Does patient feel physically and emotionally safe where he/she lives: Yes. Is patient is worried about losing housing: No. What is the highest grade or level of school you have completed or the highest degree you have received? More than high school. In the past year, patient or family members in household were unable to get needed clothing: No, unable to get needed childcare administrator: No, unable to get needed phone: No, unable to get needed utilities: No, unable to get needed Medicine or Health Care: No, and In the past year, patient or family members in household were unable to get needed food: No. How often does patient see or talk to people that that he/she cares about and feels close to: 5 or more times a week and Woman (0 Points) [Pre-DM]. PHQ-9: total score was 0 07/30/2022, [PHQ-9-1] Little interest or pleasure in doing things? + 0 pt : Not at all, [PHQ-9-2] Feeling down, depressed, or hopeless? + 0 pt : Not at all, [PHQ-9-3] Trouble falling or staying asleep or sleeping too much? + 0 pt : Not at all, [PHQ-9-4] Feeling tired or having little energy? + 0 pt : Not at all, [PHQ-9-5] Poor appetite or overeating? + 0 pt : Not at all, [PHQ-9-6] Feeling bad about yourself-or that you are a failure + 0 pt : Not at all, [PHQ-9-7] Trouble concentrating on things such as reading the newspaper + 0 pt : Not at all, [PHQ-9-8] Moving or speaking so slowly that other people have noticed. + 0 pt : Not at all, [PHQ-9-9] Thoughts that you would be better off or hurting yourself? + 0 pt : Not at all, and Less than 40 years (0 points) [Pre-DM]. [facility]01[facility]16[facility]23 Hospital Discharge instructions* Discharge Instructions* Jarvis Rojas MD - 07/21/2022 10:12 PM EST Hold your Buspar for the next 8 days (5 days of Paxlovid therapy and three days afterward). Return to the ED for worsened pain, difficulty breathing or any other concerns. Follow-up with the brownfield redevelopment specialist for evaluation of your lung nodule after your COVID infection resolves. * Attachments The following attachments cannot be sent through Care Everywhere. * Pulmonary Nodules: General Info (Ugandan) * Coronavirus Disease (COVID-19): Isolation (Ugandan) documented in this encounter[facility] Phone: 1(243) 539-685401-09-2023 Hospital Discharge instructions* Discharge Instructions* Rachel Belcher DO - 07/14/2022 1:08 PM EST Continue with your inhaler as needed for wheezing. Start the Z-Antony as well as a prednisone course as prescribed. Follow-up with your doctor next week if symptoms do not improve. Return if they get worse. * Attachments The following attachments cannot be sent through Care Everywhere. * Asthma: General Info (Ugandan) documented in this encounterCHAR[facility] Phone: 1(539) 156-247501-01-2023 Hospital Discharge instructions* Discharge Instructions* Brad Richey PA-C - 07/06/2022 4:30 PM EST Follow-up with primary care doctor 7 to 10 days for reevaluation. Start steroids tomorrow as you have already been given a dose here in the emergency department today. Use albuterol inhaler as neededfor wheezing. Take Tessalon Perles as directed for cough. Promptly return to emergency department for new, changing, worsening of symptoms or other concerns. * Attachments The following attachments cannot be sent through Care Everywhere. * URI (Upper Respiratory Infection): Viral (Ugandan) * Asthma: General Info (Ugandan) documented in this encounterCHAR[facility] Phone: 1([phone] 225-122401-01-2023 History of Present illness Narrative* Amie Huerta RCP - 07/06/2022 3:08 PM EST Slightly more aeration after albuterol. Encouraged pt to slow respirations documented in this encounterLIFEPOINT [facility]ITALSA[facility] Phone: 1([phone]) 101-134310-27-2022 Hospital Discharge instructions* Discharge Instructions* Brad Richey PA-C - 05/01/2022 6:15 PM EDT Follow-up with primary care doctor 7 to 10 days for reevaluation. Avoid movements that worsen your pain take Tylenol or Motrin as directed for discomfort. Promptly return to emergency department for new, changing, worsening of symptoms or other concerns. * Attachments The following attachments cannot be sent through Care Everywhere. * Head Injury: Closed: General Info (Ugandan) * Back Pain (Ugandan) * RICE: General Info (Ugandan) documented in this encounterLIFEPOINT [facility]OS[facility]ITAL[facility] Phone: 1(703) 379-351609-02-2022 History of Present illness Narrative* Leonard Ferrer MD - 03/07/2022 9:00 AM EDT [facility] Referred by: OTONIEL Riggins [address] [facility] [address] [place] [address] PCP: Yohan James CNP (General) Reason for consult: non-surgical management of back and leg pain History of Present Illness: Oswald Cox is a 26 y.o. female with no significant past medical history presentingtoday for evaluation of her chief complaint: Lower back pain. External notes/medical records independently reviewed and pertinent information found was incorporated. Oswald Cox reports pain located in lower back that started approximately 1.5 yearsago. The pain radiates down the left leg to mid-calf area. There is associated numbness or tinglingwhich is intermittent, worse in mornings. Reports weakness in both legs, worse with prolonged activity. Pain level is 5/10 today, 10/10 with significant activity. Feels sharp and is intermittent in duration. Pain worse with activity. Pain improved with rest. Has seen a chiropractor, but pain reliefonly lasts 3 hours. The percentage of axial to limb pain is 75% and 25%, respectively. Did see a pain specialist previously at [facility]. Has trialed epidural steroid injections, MBB with someimprovement in pain, and RFA (L3, L4, L5 bilaterally) without improvement. Was also seen recently by Orthopedic surgery who recommended no surgical intervention. Denies bowel dysfunction, bladder dysfunction or saddle anesthesia concerning for a cauda equina issue. Denies issues with balance, changes in writing or hand dexterity. Current medications for this issue: Zonisamide Meloxicam Medical marijuana Beneficial Treatments: Zonisamide Meloxicam Non-Beneficial Treatments: Gabapentin Lyrica Treatments: --Physical therapy: Yes, 5 weeks prior to seeing pain management --Injections: Yes --Spine Surgery: No Review of Systems: All other systems negative or as above and below. 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 Surgical History: has no past surgical history on file. Social History: reports that she has never smoked. She has never used smokeless tobacco. She reports previous alcohol use. She reports current drug use. Frequency: 7.00 times per week. Drug: Marijuana. Social History Substance and Sexual Activity Drug Use Yes Frequency: 7.0 times per week Types: Marijuana Comment: Medicinal Social History Social History Narrative Not on file Family History: family history includes Breast Cancer in her paternal aunt; Diabetes in her maternal grandmother; Hypertension in her father, mother, and sister; Mental Illness in her brother, mother, and sister; Myocardial Infarction in her father; Ovarian Cancer in her paternal aunt; Stroke in her maternal grandmother and sister; Uterine Cancer in her paternal aunt. Current Medications: has a current medication list which includes the following prescription(s): cyclobenzaprine 5 MG tablet, meloxicam 15 MG tablet, montelukast 10 MG tablet, and zonisamide 100 MG capsule. Allergies: has No Known Allergies. PHYSICAL EXAMINATION Pulse 69 Temp 97.2 F (36.2 C) Ht 1.753 m (5' 9 ) Wt (!) 153.3 kg (338 lb) SpO2 99% BMI 49.91 kg/m Smoking Status Never Smoker Body mass index is 49.91 kg/m . GENERAL: NAD, good eye contact, well appearing, responds appropriately. Obese/Overweight: yes HEENT: Atraumatic, normocephalic. EOMI grossly intact to tracking examiner, sclerae anicteric. THORACIC/PULM: No visible chest wall deformities. No tachypnea, no accessory muscle use at rest. CARDIO & VASC: Regular rate and rhythm to peripheral pulse. Upper and lower limbs are warm, well perfused. No cyanosis, or edema. SKIN: Intact. No rashes, bruises, or ulcers over visible skin PSYCH: Affect appears normal, mood congruent. MUSCULOSKELETAL & NEURO: Observation: Visible Spine/Back Deformity: no Palpation: Tenderness to palpation of the lumbar paraspinal muscles in the low back: no ROM: Pain worse with flexion, slightly improvement with extension. Seated SLR: while seated was positive on left, normal on right PSIS Area Tenderness: negative on RIGHT, negative on LEFT Luly Finger sign: negative on RIGHT, negative on LEFT TRACEY/Sulaiman's Test: negative on RIGHT, negative on LEFT Facet-loading (ext with rotation): positive on L, negative on R Manual Muscle Testing: Lower Extremity MMT: -/5 HF KE KF DF APF EHL Right 5 5 5 5 5 5 Left 5 5 5 5 5 5 Sensation: Grossly normal to light touch over BLL. Gait: Grossly Normal Labs/Imaging Reviewed: Labs and imaging personally reviewed. Relevant diagnostic studies were also reviewed with and explained to patient using their images, reports, diagrams, and/or models. Plain xrays lumbar Spine (02/12/2022): Degenerative changes at T12-L1 and L5-S1. No instability on flexion-extension. Lower lumbar facetalarthrosis MRI lumbar Spine, from outside, no images (12/24/2021): Mild bilateral neural foraminal stenosis at L5-S1. Mild facetal arthropathy bilaterally at L5-S1. EMG from outside ( 01/03/22): Mild chronic L5-S1 radiculopathies. No other significant finding No results found for: SODIUM, POTASSIUM, CHLORIDE, CO2, BUN, CREATSERUM, GLUCOSE No results found for: WBC, WBCCOUNT, WBCFETAL, HGB, HCT, PLATELET, MCV No results found for: SEDRATE No results found for: CRP Patient Reported Outcome Measures: No flowsheet data found. ASSESSMENT AND PLAN ICD-10-CM 1. Facet arthropathy, lumbar M47.816 SCHEDULE PROCEDURE 2. Lumbar degenerative disc disease M51.36 3. Lumbar facet arthropathy M47.816 Oswald Cox is a 26 y.o. female here with chronic lower back pain with radiculopathy. Pain has been ongoing for past 1.5 years, has been seen by both Orthopedic surgery and pain specialist. Has trialed physical therapy, BRIGITTE, MBB, RFA without significant improvement. MRI with inflammation at facets, will trial facet injections. - Can consider switching current paroxetine to duloxetine 30mg BID for additional neuropathic pain control - Will schedule L4-L5 , L5-S1 facet injections BILATERALLY - Follow-up for injections - Recommend continuing to perform their usual activities of daily living and to avoid prolonged rest as a means for pain control. - Patient to call or go to the ED if she has any bowel or bladder incontinence, worsening muscle weakness or worsening of her symptoms. - The natural history and course of the symptomatology of her diagnosis was discussed in detail with the patient. Plan of care discussed. All questions answered. The patient verbalized understanding and agreed to the treatment plan formulated for this visit. Medical management to be discussed/communicated with the referring provider Leonard Ferrer MD PGY4 Anesthesiology Attending Physician Note (GE) I personally examined and evaluated the patient. I reviewed the case and the medical record with the resident. Based on the history and exam, I agree with the medical decision making. Dr. Ferrer performed the interview and exam however, I was present and participated significantly in the evaluation, examination, and documentation of this patient. documented in this encounterWay[facility] Evaluation note Includes: Assessments for all patient encounters Findings Encounter Date Assessment of body mass inde x [Body mass index [BMI] 45.0-49.9, adult] Medical Established Patient with Yohan Blanca PROFESSIONAL PROGRAMMER ANALYST 03/04/2022 Lumbago Medical Established Patient with Yohan Blanca PROFESSIONAL PROGRAMMER ANALYST 03/04/2022 Moderate recurrent major depression BH E stablished Patient with Maia García LPCC-S 11/22/2021 Assessment of body mass inde x [Body mass index [BMI] 45.0-49.9, adult] Medical Established Patient with Yohan Blanca PROFESSIONAL PROGRAMMER ANALYST 11/22/2021 Assessment of hip joint pain worse while standing Medical Established Patient with Yohan Blanca PROFESSIONAL PROGRAMMER ANALYST 11/22/2021 Moderate recurrent major depression BH E stablished Patient with Maia García LPCC-S 08/12/2021 Assessment of body mass index Medical Es tablished Patient with Falguni Guille PROFESSIONAL PROGRAMMER ANALYST 08/12/2021 Concussion Medical Established Patient with Falguni Guille PROFESSIONAL PROGRAMMER ANALYST 08/12/2021 Concussion injury of brain Medical Estab lished Patient with Falguni Guille PROFESSIONAL PROGRAMMER ANALYST 08/12/2021 Moderate recurrent major depression BH E stablished Patient with Maia García LPCC-S 08/05/2021 Assessment of body mass inde x [Body mass index [BMI] 45.0-49.9, adult] Medical Established Patient with Yohan Blanca PROFESSIONAL PROGRAMMER ANALYST 08/05/2021 Concussion injury of brain Medical Estab lished Patient with Yohan Blanca PROFESSIONAL PROGRAMMER ANALYST 08/05/2021 Diabetes Risk Test Score was four score 08/05/2021 Medical Established Patient with Yohan Blanca PROFESSIONAL PROGRAMMER ANALYST 08/05/2021 Assessment of body mass inde x [Body mass index [BMI] 45.0-49.9, adult] Medical Established Patient with Yohan Blanca PROFESSIONAL PROGRAMMER ANALYST 04/10/2021 Lumbago Medical Established Patient with Yohan Blanca PROFESSIONAL PROGRAMMER ANALYST 04/10/2021 Mild recurrent major depression Medical Established Patient with Yohan Blanca PROFESSIONAL PROGRAMMER ANALYST 04/10/2021 Post-traumatic stress disorder BH Establ ished Patient with Maia García LPCC-S 03/27/2021 Assessment of body mass index 48.7 Medic al Established Patient with Yohan Blanca PROFESSIONAL PROGRAMMER ANALYST 03/27/2021 Lumbago Medical Established Patient with Yohan Blanca PROFESSIONAL PROGRAMMER ANALYST 03/27/2021 Mild recurrent major depression Medical Established Patient with Yohan Blanca PROFESSIONAL PROGRAMMER ANALYST 03/27/2021 Body mass index [Body mass i ndex [BMI] 45.0-49.9, adult] Medical Established Patient with Yohan Blanca PROFESSIONAL PROGRAMMER ANALYST 09/25/2020 Mild recurrent major depression Medical Established Patient with Yohan Blanca PROFESSIONAL PROGRAMMER ANALYST 09/25/2020 Morbid obesity Medical Established Patient with Yohan Blanca PROFESSIONAL PROGRAMMER ANALYST 09/25/2020 Generalized anxiety disorder BH Establis hed Patient with Eufemia Short LISWS 08/28/2020 Mild recurrent major depression BH Estab lished Patient with Eufemia Short LISWS 08/28/2020 Allergic bronchitis Medical Established Patient with Yohan Blanca PROFESSIONAL PROGRAMMER ANALYST 08/28/2020 Assessment of snoring Medical Establishe d Patient with Yohan Blanca PROFESSIONAL PROGRAMMER ANALYST 08/28/2020 Body mass index [Body mass i ndex [BMI] 45.0-49.9, adult] Medical Established Patient with Yohan Blanca PROFESSIONAL PROGRAMMER ANALYST 08/28/2020 Mild recurrent major depression Medical Established Patient with Yohan Blanca PROFESSIONAL PROGRAMMER ANALYST 08/28/2020 Morbid obesity Medical Established Patient with Yohan Blanca PROFESSIONAL PROGRAMMER ANALYST 08/28/2020 Generalized anxiety disorder BH Establis hed Patient with Eufemia Short LISWS 07/25/2020 Mild recurrent major depression BH Estab lished Patient with Eufemia Short LISWS 07/25/2020 Body mass index Medical New Patient with Yohan Blanca PROFESSIONAL PROGRAMMER ANALYST 07/25/2020 Diabetes Risk Test Score was five score 07/25/2020 Medical New Patient with Yohan Blanca PROFESSIONAL PROGRAMMER ANALYST 07/25/2020 Morbid obesity Medical New Patient with Yohan Blanca PROFESSIONAL PROGRAMMER ANALYST 07/25/2020 [facility] Work Phone: 1([phone]) 951-352708-30-2022 Reason for referral (narrative)* Date Encounter Description Provider Reason for Referral 03/04/22 Medical Established Patient Yohan James PROFESSIONAL PROGRAMMER ANALYST Referral To Mental Health Team 08/12/21 Medical Established Patient Falguni Han PRUDENCIO Referral To Mental Health Team 08/05/21 Established Patient Maia Leosmons [facility] Referral To Mental Health Team - Spoke w/pt re affirmative responses to questions leading to score of 14. 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 right Hand Dominant female who presents with chief complaints of chronic low back pain radiating to left lower extremity. She describes pain radiating to whole left lower extremity in a nondermatomal pattern along with intermittent tingling and numbness, again in a nondermatomal manner, but more persistent on left anterior thigh. She denies any bowel or bladder incontinence. She scores her pain anywhere from 6 to 9/10 VAS. She has attempted multiple sessions of physical therapy as well as BRIGITTE without any relief. She is here for further opinion if any surgical management is required. 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 denies balance problems. denies bowel or bladder incontinence Patient takes OTC (medications). Chart notes and referral notes reviewed. Review of Systems: Chart review of systems was reviewed prior to the interview. A subset of that information is presented below. Constitutional: - Unexplained Weight Loss - No - Fever/chills - No Chest: - Chest Pain -No - Shortness of Breath -No - Abdominal Pain- No Musculoskeletal: -spine or extremity pain yes GI/: - Bowel incontinence - No - Bladder incontinence No Bleeding disorders: - DVT/PE No - increased clotting disorder no - increased bleeding disorder no Past Medical History: No past medical history on file. Past Surgical History: No past surgical history on file. Social History: Smoking No, ETOH no Social History Occupational History Not on file Tobacco Use Smoking status: Not on file Smokeless tobacco: Not on file Substance and Sexual Activity Alcohol use: Not on file Drug use: Not on file Sexual activity: Not on file Family History: No family history on file. Medications: No outpatient medications prior to visit. No facility-administered medications prior to visit. Allergies: has no allergies on file. Physical Exam: General: There were no vitals filed for this visit. No acute distress Psych: A+Ox3, Affect is appropriate Gait: Gait: normal and steady gait pattern Heel and toe walking is intact Tandem gait- difficult to perform Rhomberg sign: difficult to perform Peripheral Vascular: LE swelling - No Fingers/toes warm, well perfused. DP/PT palpable, capillary refill < 2 seconds Skin: Lesions on Skin - No Spine: No skin lesions, ulcers noted. no visual asymmetry or rotation in cervicothoracolumbosacral spine noted. Tenderness to palpation in lumbar spine region- no. Patient s spine is well aligned with No evidence of masses or muscle spasms. Muscle tone and bulk are normal. Range of motion of the lumbar spine is diminished range with pain in flexion, extension, lateral bending, and rotation . Dysraphism (neural tube defect) - No, Prior surgical scars no Neuro: MOTOR: IP L1 Quad L3,4 TA L4 EHL L5 GS S1 Reference Right 5 5 5 5 5 5=Normal Left 5 5 5 5 5 3=against gravity SENSORY L2 L3 L4 L5 S1 Reference Right 2 2 2 2 2 2=Normal Left 2 2 2 2 2 1=Presend but decreased Reflexes Biceps BR Triceps Patella Achilles Reference Right 2 2 2 2 2 3=Increased, 0=Absent Left 2 2 2 2 2 1=Decreased decreased Spinal Cord Eval Schumacher Clonus Balance walking Straight Leg Raise Test Reference Right Neg Absent Normal Normal Normal=Absent Hanna, Clonus Left Neg Absent Normal Normal Imaging Independent review Plain xrays lumbar Spine (02/12/2022): Degenerative changes at T12-L1 and L5-S1. No instability on flexion-extension. Lower lumbar facetalarthrosis MRI lumbar Spine, from outside, no images (12/24/2021): Mild bilateral neural foraminal stenosis at L5-S1. Mild facetal arthropathy bilaterally at L5-S1. EMG from outside ( 01/03/22): Mild chronic L5-S1 radiculopathies. No other significant finding Clinical impression: Patient is a 26 y.o. female who presents with- 1. Chronic low back pain with whole left lower extremity radiculopathy and numbness 2. Normal neurological exam 3. No significant stenosis or other finding on imaging 4. BMI of 49 Plan: The natural history and course of the symptomatology of degenerative disc disease, low back pain was discussed in detail with the patient. Diagnostics were reviewed with the patient and the results were discussed .I answered all questions regarding the mode of onset, pathophysiology, symptoms, imaging findings, treatment options (both non-operative and operative) regarding her diagnosis. Given her no significant stenosis on MRI and EMG findings, I do not recommend any surgical intervention at present. - Recommend referral to PM&R for nonsurgical management including BRIGITTE. - Recommend weight loss and core strengthening exercises . - no follow-up is needed at this time Plan of care discussed. All questions answered. The patient verbalized understanding of the diseaseprocess and agreed to the treatment plan formulated for this visit. The total [id number] time spent on this visit was greater than 30 minutes, with the majority (>50%) of the time spent in counseling, discussing pathology and management options, and coordinationof care. Patient Counseling: I also discussed with the patient the spinal mechanics and the importance of staying as active as possible. We discussed that building a core muscle group and strengthening is crucial for sustained improvement. I also recommended a home based exercise program Follow-up: - PRN , with MD Meghana Muñoz Professor of Clinical Orthopedics Division of Spine Surgery Department [place] [address] Parts/entire of this note was dictated via M*Modal using a microphone/Phone and there may be some remaining typographical/spelling/gramatical errors, in spite of my extensive editing. Please feel free to reach me back for any clarifications. documented in this encounterOSLicking [facility] Evaluation note Includes: Assessments for all patient encounters Findings Encounter Date Moderate recurrent major depression BH E stablished [facility] Assessment of body mass inde x [Body mass index [BMI] 45.0-49.9, adult] Medical Established Patient with Yohan James [facility] 11/22/2021 Assessment of hip joint pain worse while standing Medical Established Patient with Yohan James [facility] 11/22/2021 Moderate recurrent major depression BH E stablished [facility] 08/12/2021 Assessment of body mass index Medical Es tablished Patient with Falguni Han [facility] 08/12/2021 Concussion injury of brain Medical Estab lished Patient with Falguni Han PROFESSIONAL PROGRAMMER ANALYST 08/12/2021 Moderate recurrent major depression BH E stablished Patient with Maia García [facility] 08/05/2021 Assessment of body mass inde x [Body mass index [BMI] 45.0-49.9, adult] Medical Established Patient with Yohan Blanca PROFESSIONAL PROGRAMMER ANALYST 08/05/2021 Concussion injury of brain Medical Estab lished Patient with Yohan Blanca PROFESSIONAL PROGRAMMER ANALYST 08/05/2021 Diabetes Risk Test Score was four score 08/05/2021 Medical Established Patient with Yohan Blanca PROFESSIONAL PROGRAMMER ANALYST 08/05/2021 Assessment of body mass inde x [Body mass index [BMI] 45.0-49.9, adult] Medical Established Patient with Yohan Blanca PROFESSIONAL PROGRAMMER ANALYST 04/10/2021 Lumbago Medical Established Patient with Yohan Blanca PROFESSIONAL PROGRAMMER ANALYST 04/10/2021 Mild recurrent major depression Medical Established Patient with Yohan Blanca PROFESSIONAL PROGRAMMER ANALYST 04/10/2021 Post-traumatic stress disorder BH Establ ished Patient with Maiachang García [facility] 03/27/2021 Assessment of body mass index 48.7 Medic al Established Patient with Yohan Blanca PROFESSIONAL PROGRAMMER ANALYST 03/27/2021 Lumbago Medical Established Patient with Yohan Blanca PROFESSIONAL PROGRAMMER ANALYST 03/27/2021 Mild recurrent major depression Medical Established Patient with Yohan Blanca PROFESSIONAL PROGRAMMER ANALYST 03/27/2021 Body mass index [Body mass i ndex [BMI] 45.0-49.9, adult] Medical Established Patient with Yohan Blanca PROFESSIONAL PROGRAMMER ANALYST 09/25/2020 Mild recurrent major depression Medical Established Patient with Yohan Blanca PROFESSIONAL PROGRAMMER ANALYST 09/25/2020 Morbid obesity Medical Established Patient with Yohan Blanca PROFESSIONAL PROGRAMMER ANALYST 09/25/2020 Generalized anxiety disorder BH Establis hed Patient with Eufemia Short LISWS 08/28/2020 Mild recurrent major depression BH Estab lished Patient with Eufemia Short LISWS 08/28/2020 Allergic bronchitis Medical Established Patient with Yohan Blanca PROFESSIONAL PROGRAMMER ANALYST 08/28/2020 Assessment of snoring Medical Establishe d Patient with Yohan Blanca PROFESSIONAL PROGRAMMER ANALYST 08/28/2020 Body mass index [Body mass i ndex [BMI] 45.0-49.9, adult] Medical Established Patient with Yohan Blanca PROFESSIONAL PROGRAMMER ANALYST 08/28/2020 Mild recurrent major depression Medical Established Patient with Yohan Blanca PROFESSIONAL PROGRAMMER ANALYST 08/28/2020 Morbid obesity Medical Established Patient with Yhoan Blanca PROFESSIONAL PROGRAMMER ANALYST 08/28/2020 Generalized anxiety disorder BH Establis hed Patient with Eufemia Short LISWS 07/25/2020 Mild recurrent major depression BH Estab lished Patient with Eufemia Short LISWS 07/25/2020 Body mass index Medical New Patient with Yohan Blanca PROFESSIONAL PROGRAMMER ANALYST 07/25/2020 Diabetes Risk Test Score was five score 07/25/2020 Medical New Patient with Yohan Blanca PROFESSIONAL PROGRAMMER ANALYST 07/25/2020 Morbid obesity Medical New Patient with Yohan Blanca PROFESSIONAL PROGRAMMER ANALYST 07/25/2020 [facility] Work Phone: [phone]) [phone] Evaluation note Includes: Assessments for all patient encounters Findings Encounter Date Moderate recurrent major depression BH E stablished Patient with Maia García LPCC-S 11/22/2021 Assessment of body mass inde x [Body mass index [BMI] 45.0-49.9, adult] Medical Established Patient with Yohan Blanca PROFESSIONAL PROGRAMMER ANALYST 11/22/2021 Assessment of hip joint pain worse while standing Medical Established Patient with Yohan Blanca PROFESSIONAL PROGRAMMER ANALYST 11/22/2021 Moderate recurrent major depression BH E stablished Patient with Maia García LPCC-S 08/12/2021 Assessment of body mass index Medical Es tablished Patient with Falguni Guille PROFESSIONAL PROGRAMMER ANALYST 08/12/2021 Concussion Medical Established Patient with Falguni Guille PROFESSIONAL PROGRAMMER ANALYST 08/12/2021 Concussion injury of brain Medical Estab lished Patient with Falguni Guille PROFESSIONAL PROGRAMMER ANALYST 08/12/2021 Moderate recurrent major depression BH E stablished Patient with Maia García LPCC-S 08/05/2021 Assessment of body mass inde x [Body mass index [BMI] 45.0-49.9, adult] Medical Established Patient with Yohan Blanca PROFESSIONAL PROGRAMMER ANALYST 08/05/2021 Concussion injury of brain Medical Estab lished Patient with Yohan Blanca PROFESSIONAL PROGRAMMER ANALYST 08/05/2021 Diabetes Risk Test Score was four score 08/05/2021 Medical Established Patient with Yohan Blanca PROFESSIONAL PROGRAMMER ANALYST 08/05/2021 Assessment of body mass inde x [Body mass index [BMI] 45.0-49.9, adult] Medical Established Patient with Yohan Blanca PROFESSIONAL PROGRAMMER ANALYST 04/10/2021 Lumbago Medical Established Patient with Yohan Blanca PROFESSIONAL PROGRAMMER ANALYST 04/10/2021 Mild recurrent major depression Medical Established Patient with Yohan Blanca PROFESSIONAL PROGRAMMER ANALYST 04/10/2021 Post-traumatic stress disorder BH Establ ished Patient with Maia García LPCC-S 03/27/2021 Assessment of body mass index 48.7 Medic al Established Patient with Yohan Blanca PROFESSIONAL PROGRAMMER ANALYST 03/27/2021 Lumbago Medical Established Patient with Yohan Blanca PROFESSIONAL PROGRAMMER ANALYST 03/27/2021 Mild recurrent major depression Medical Established Patient with Yohan Blanca PROFESSIONAL PROGRAMMER ANALYST 03/27/2021 Body mass index [Body mass i ndex [BMI] 45.0-49.9, adult] Medical Established Patient with Yohan Blanca PROFESSIONAL PROGRAMMER ANALYST 09/25/2020 Mild recurrent major depression Medical Established Patient with Yohan Blanca PROFESSIONAL PROGRAMMER ANALYST 09/25/2020 Morbid obesity Medical Established Patient with Yohan Blanca PROFESSIONAL PROGRAMMER ANALYST 09/25/2020 Generalized anxiety disorder BH Establis hed Patient with Eufemia Short LISWS 08/28/2020 Mild recurrent major depression BH Estab lished Patient with Eufemia Short LISWS 08/28/2020 Allergic bronchitis Medical Established Patient with Yohan Blanca PROFESSIONAL PROGRAMMER ANALYST 08/28/2020 Assessment of snoring Medical Establishe d Patient with Yohan Blanca PROFESSIONAL PROGRAMMER ANALYST 08/28/2020 Body mass index [Body mass i ndex [BMI] 45.0-49.9, adult] Medical Established Patient with Yohan Blanca PROFESSIONAL PROGRAMMER ANALYST 08/28/2020 Mild recurrent major depression Medical Established Patient with Yohan Blanca PROFESSIONAL PROGRAMMER ANALYST 08/28/2020 Morbid obesity Medical Established Patient with Yohan Blanca PROFESSIONAL PROGRAMMER ANALYST 08/28/2020 Generalized anxiety disorder BH Establis hed Patient with Eufemia Short LISWS 07/25/2020 Mild recurrent major depression BH Estab lished Patient with Eufemia Short LISWS 07/25/2020 Body mass index Medical New Patient with Yohan Blanca PROFESSIONAL PROGRAMMER ANALYST 07/25/2020 Diabetes Risk Test Score was five score 07/25/2020 Medical New Patient with Yohan Blanca PROFESSIONAL PROGRAMMER ANALYST 07/25/2020 Morbid obesity Medical New Patient with Yohan Blanca PROFESSIONAL PROGRAMMER ANALYST 07/25/2020 [facility] Work Phone: 1(109) 542-150902-11-2022 History of Present illness Narrative* Joseph Pedroza, PT - 08/16/2021 3:15 PM EST [facility] Outpatient Physical Therapy Daily Note Patient: Oswald Cox : 1995 CSN #: [id number] Referring Practitioner: Leonard Randall MD Referral Date : 07/01/21 Date: 08/16/2021 Diagnosis: Chondromalacia patellae of left knee (M22.42) Treatment Diagnosis: L knee pain Onset Date: 07/01/21 PT Insurance Information: BCBS Total # of Visits Approved: 12 Per Physician Order Total # of Visits to Date: 9 No Show: 0 Canceled Appointment: 0 Pre-Treatment Pain: 5/10 Subjective: Pt states she is still having a lot of trouble with L hip and low back pain from work. Pt states she has surgery next Thursday for L carpal tunnel. Exercises: Exercise 1: HEP: quad sets, SLR, hooklying clamshell BTB; updated sink ex, sidelying hip ABD Exercise 2: Bike 10min level 4.5 Exercise 3: Standing sink exercise--- september, hip abduction, mini squats, 15x each, heel/toe raises 2 x15 each Exercise 9: SLR 2x15, bridge 2x15 Exercise 12: S/L hip ABD 2x10 Exercise 13: Quad sets x10; hooklying clamshell PTB x10 Modalities: Moist heat: x15min L knee with IFC E-stim (parameters): E-stim x15 min with hot pack Assessment Assessment: Pt has completed 9 PT visits to date. Pt reports independence and compliance with HEP, which was updated this date. Pt cont to demonstrate (+) patellar grind. However, pt completes LEFS with a score of 40, compared to 9 at [facility], which is a significant improvement. L hip strength 4/5 in all major planes. Pt will be placed on hold from PT for 2-3 weeks to assess tolerance for HEP, with plan to D/C if no issues/concerns reported within that time. Activity Tolerance Activity Tolerance: Patient Tolerated treatment well Patient Education *Patient Education: Updated HEP and plan for 2 week hold from PT. Pt verbalized/demonstrated good understanding: [x] Yes [] No, pt required further clarification. Post Treatment Pain: 5/10 Plan Times per week: 2 Plan weeks: 6 Goals (Total # of Visits to Date: 9) Short term goals Time Frame for Short term goals: 3 weeks Short term goal 1: Pt will initiate HEP.- met Short term goal 2: Pt will initiate LLE strengthening program to assist with addressing LLE muscle imbalance and decreasing pain.- met skilled nursing goals Time Frame for termite control service representative goals : 6 weeks skilled nursing goal 1: Pt will be independent and compliant with HEP.- met termite control service representative goal 2: Pt will improve LLE hip strength to >/= 4 to 4+/5 in all planes to improve LE muscle balance.- met termite control service representative goal 3: Pt will improve LEFS score to >/= 25 to improve QOL.- met termite control service representative goal 4: Pt will have (-) Patellar grind test to decrease knee pain.- not met Minutes Tracking: Time In: 1512 Time Out: 1600 Minutes: 48 Timed Code Treatment Minutes: 45 Minutes Joseph Pedroza PT, DPT Date: 08/16/2021 [facility] Phone: [phone]) [phone] Evaluation note Includes: Assessments for all patient encounters Findings Encounter Date Moderate recurrent major depression BH E stablished Patient with Maia García LPCC-S 08/12/2021 Assessment of body mass index Medical Es tablished Patient with Falguni Han PROFESSIONAL PROGRAMMER ANALYST 08/12/2021 Concussion injury of brain Medical Estab lished Patient with Falguni Han [facility] 08/12/2021 Moderate recurrent major depression E stablished Patient with Maia García LPCC-S 08/05/2021 Assessment of body mass inde x [Body mass index [BMI] 45.0-49.9, adult] Medical Established Patient with Yohan Blanca PROFESSIONAL PROGRAMMER ANALYST 08/05/2021 Concussion injury of brain Medical Estab lished Patient with Yohan Blanca PROFESSIONAL PROGRAMMER ANALYST 08/05/2021 Diabetes Risk Test Score was four score 08/05/2021 Medical Established Patient with Yohan Blanca PROFESSIONAL PROGRAMMER ANALYST 08/05/2021 Assessment of body mass inde x [Body mass index [BMI] 45.0-49.9, adult] Medical Established Patient with Yohan Blanca PROFESSIONAL PROGRAMMER ANALYST 04/10/2021 Lumbago Medical Established Patient with Yohan Blanca PROFESSIONAL PROGRAMMER ANALYST 04/10/2021 Mild recurrent major depression Medical Established Patient with Yohan Blanca PROFESSIONAL PROGRAMMER ANALYST 04/10/2021 Post-traumatic stress disorder BH Establ ished Patient with Maia García LPCC-S 03/27/2021 Assessment of body mass index 48.7 Medic al Established Patient with Yohan Blanca PROFESSIONAL PROGRAMMER ANALYST 03/27/2021 Lumbago Medical Established Patient with Yohan Blanca PROFESSIONAL PROGRAMMER ANALYST 03/27/2021 Mild recurrent major depression Medical Established Patient with Yohan Blanca PROFESSIONAL PROGRAMMER ANALYST 03/27/2021 Body mass index [Body mass i ndex [BMI] 45.0-49.9, adult] Medical Established Patient with Yohan Blanca PROFESSIONAL PROGRAMMER ANALYST 09/25/2020 Mild recurrent major depression Medical Established Patient with Yohan Blanca PROFESSIONAL PROGRAMMER ANALYST 09/25/2020 Morbid obesity Medical Established Patient with Yohan Blanca PROFESSIONAL PROGRAMMER ANALYST 09/25/2020 Generalized anxiety disorder BH Establis hed Patient with Eufemia Short LISWS 08/28/2020 Mild recurrent major depression BH Estab lished Patient with Eufemia Short LISWS 08/28/2020 Allergic bronchitis Medical Established Patient with Yohan Blanca PROFESSIONAL PROGRAMMER ANALYST 08/28/2020 Assessment of snoring Medical Establishe d Patient with Yohan Blanca PROFESSIONAL PROGRAMMER ANALYST 08/28/2020 Body mass index [Body mass i ndex [BMI] 45.0-49.9, adult] Medical Established Patient with Yohan Blanca PROFESSIONAL PROGRAMMER ANALYST 08/28/2020 Mild recurrent major depression Medical Established Patient with Yohan Blanca PROFESSIONAL PROGRAMMER ANALYST 08/28/2020 Morbid obesity Medical Established Patient with Yohan Blanca PROFESSIONAL PROGRAMMER ANALYST 08/28/2020 Generalized anxiety disorder BH Establis hed Patient with Eufemia Short LISWS 07/25/2020 Mild recurrent major depression BH Estab lished Patient with Eufemia Short LISWS 07/25/2020 Body mass index Medical New Patient with Yohan Blanca PROFESSIONAL PROGRAMMER ANALYST 07/25/2020 Diabetes Risk Test Score was five score 07/25/2020 Medical New Patient with Yohan Blanca PROFESSIONAL PROGRAMMER ANALYST 07/25/2020 Morbid obesity Medical New Patient with Yohan Blanca PROFESSIONAL PROGRAMMER ANALYST 07/25/2020 [facility] Work Phone: [phone]) [phone] History general Narrative - Reported Includes: Medical History in patient's chart Description Last Updated No previous hospitalizations 08/12/2021 Recent immunization for flu 08/05/2021 History of gynecologic disorder PCOS, en dometriosis 07/25/2020 [facility] Work Phone: [phone]) [phone] Evaluation note Includes: Assessments for all patient encounters Findings Encounter Date Moderate recurrent major depression BH E stablished Patient with Maia Wongs LPCC-S 08/05/2021 Assessment of body mass inde x [Body mass index [BMI] 45.0-49.9, adult] Medical Established Patient with Yohan Blanca PROFESSIONAL PROGRAMMER ANALYST 08/05/2021 Concussion injury of brain Medical Estab lished Patient with Oyhan Blanca PROFESSIONAL PROGRAMMER ANALYST 08/05/2021 Diabetes Risk Test Score was four score 08/05/2021 Medical Established Patient with Yohan Blanca PROFESSIONAL PROGRAMMER ANALYST 08/05/2021 Assessment of body mass inde x [Body mass index [BMI] 45.0-49.9, adult] Medical Established Patient with Yohan Blanca PROFESSIONAL PROGRAMMER ANALYST 04/10/2021 Lumbago Medical Established Patient with Yohan Blanca PROFESSIONAL PROGRAMMER ANALYST 04/10/2021 Mild recurrent major depression Medical Established Patient with Yohan Blanca PROFESSIONAL PROGRAMMER ANALYST 04/10/2021 Post-traumatic stress disorder Establ ished Patient with Maia García LPCC-S 03/27/2021 Assessment of body mass index 48.7 Medic al Established Patient with Yohan Blanca PROFESSIONAL PROGRAMMER ANALYST 03/27/2021 Lumbago Medical Established Patient with Yohan Blanca PROFESSIONAL PROGRAMMER ANALYST 03/27/2021 Mild recurrent major depression Medical Established Patient with Yohan Blanca PROFESSIONAL PROGRAMMER ANALYST 03/27/2021 Body mass index [Body mass i ndex [BMI] 45.0-49.9, adult] Medical Established Patient with Yohan Blanca PROFESSIONAL PROGRAMMER ANALYST 09/25/2020 Mild recurrent major depression Medical Established Patient with Yohan Blanca PROFESSIONAL PROGRAMMER ANALYST 09/25/2020 Morbid obesity Medical Established Patient with Yohan Blanca PROFESSIONAL PROGRAMMER ANALYST 09/25/2020 Generalized anxiety disorder BH Establis hed Patient with Eufemia Short LISWS 08/28/2020 Mild recurrent major depression BH Estab lished Patient with Eufemia Short LISWS 08/28/2020 Allergic bronchitis Medical Established Patient with Yohan Blanca PROFESSIONAL PROGRAMMER ANALYST 08/28/2020 Assessment of snoring Medical Establishe d Patient with Yohan Blanca PROFESSIONAL PROGRAMMER ANALYST 08/28/2020 Body mass index [Body mass i ndex [BMI] 45.0-49.9, adult] Medical Established Patient with Yohan Blanca PROFESSIONAL PROGRAMMER ANALYST 08/28/2020 Mild recurrent major depression Medical Established Patient with Yohan Blanca PROFESSIONAL PROGRAMMER ANALYST 08/28/2020 Morbid obesity Medical Established Patient with Yohan Blanca PROFESSIONAL PROGRAMMER ANALYST 08/28/2020 Generalized anxiety disorder BH Establis hed Patient with Eufemia Short LISWS 07/25/2020 Mild recurrent major depression BH Estab lished Patient with Eufemia Short LISWS 07/25/2020 Body mass index Medical New Patient with Yohan Stewarter PROFESSIONAL PROGRAMMER ANALYST 07/25/2020 Diabetes Risk Test Score was five score 07/25/2020 Medical New Patient with Yohan Blanca PROFESSIONAL PROGRAMMER ANALYST 07/25/2020 Morbid obesity Medical New Patient with Yohan Blanca PROFESSIONAL PROGRAMMER ANALYST 07/25/2020 [facility] Work Phone: [phone]) [phone] History general Narrative - Reported Includes: Medical History in patient's chart Description Last Updated Recent immunization for flu 08/05/2021 History of gynecologic disorder PCOS, en dometriosis 07/25/2020 [facility] Work Phone: [phone]) 106-372301-14-2022 History of Present illness Narrative* Jospeh Pedroza, PT - 07/19/2021 3:15 PM EST [facility] Outpatient Physical Therapy Evaluation Date: 07/19/2021 Patient: Oswald Cox : 1995 CSN #: [id number] Referring Practitioner: Leonard Randall MD Referral Date : 07/01/21 Medical Diagnosis: Chondromalacia patellae of left knee (M22.42) Treatment Diagnosis: L knee pain Onset Date: 07/01/21 PT Insurance Information: BCBS Total # of Visits Approved: 12 Total # of Visits to Date: 1 No Show: 0 Canceled Appointment: 0 Subjective Subjective: Pt states she has had L knee pain for years, but has been getting progressively worse. Pt states she has a lot of popping, cracking and grinding. Pt states she started wearing a oesur knee brace, which she has been wearing for the past couple weeks. Pt states knee brace does seem to help with pain. Pt states walking and lifting are both aggravating as well as getting out of bed first thing in the morning. Pt states any type of movement that involves bending/straightening her knee isaggravating. Pt states wearing the brace and using ice/heat has helped to reduce pain. Pt states she also will elevate as needed. Comments: [employer] [facility] Additional Pertinent Hx: Anxiety, depression, asthma, panic attacks, carpal tunnel release Pain Screening Patient Currently in Pain: Yes Pain Assessment Pain Assessment: 0-10 Pain Level: 7 Pain Location: Knee Pain Orientation: Left Pain Descriptors: Constant,Dull,Shooting,Sharp,Numbness Objective Observation/Palpation Palpation: Palpable crepitus L patella with knee flex/ext ROM. TTP through med and lat knee joint near patella Observation: Pt arrives amb with antalgic gait, Oesur knee brace on L knee upon arrival. Body Mechanics: - LLE General AROM: L knee flex 110* (onset of pain ~65*) Strength LLE Strength LLE: Exception Comment: Hip flex 4/5, ABD 4-/5, ext 4-/5; quad 4/5 Additional Measures Special Tests: (+) Patellar grind; (+) patellar compression Exercises: Exercise 1: HEP: quad sets, SLR, hooklying clamshell BTB Modalities: Moist heat: x15min L knee Functional Outcome Measures Any of your usual work, housework, or school activities: Quite a Bit of Difficulty Your usual hobbies, recreational, or sporting activities: Quite a Bit of Difficulty Getting into or out of the bath: Quite a Bit of Difficulty Walking between rooms: Quite a Bit of Difficulty Putting on your shoes or socks: Quite a Bit of Difficulty Squatting: Extreme Difficulty or Unable to Perform Activity Lifting an object, like a bag of groceries from the floor: Extreme Difficulty or Unable to Perform Activity Performing light activities around your home: Quite a Bit of Difficulty Performing heavy activities around your home: Extreme Difficulty or Unable to Perform Activity Getting into or out of a car: Extreme Difficulty or Unable to Perform Activity Walking 2 blocks: Quite a Bit of Difficulty Walking a mile: Quite a Bit of Difficulty Going up or down 10 stairs (about 1 flight of stairs): Extreme Difficulty or Unable to Perform Activity Standing for 1 hour: Extreme Difficulty or Unable to Perform Activity Sitting for 1 hour: Extreme Difficulty or Unable to Perform Activity Running on even ground : Extreme Difficulty or Unable to Perform Activity Running on uneven ground : Extreme Difficulty or Unable to Perform Activity Making sharp turns while running fast : Extreme Difficulty or Unable to Perform Activity Hopping: Extreme Difficulty or Unable to Perform Activity Rolling over in bed: Quite a Bit of Difficulty LEFS Total Score: 9 Assessment Assessment: Pt is a 25 y/o female who presents to PT with chronic L knee pain, which has been getting progressively worse and causing L knee buckling recently. Pt demonstrates TTP through L medial and lateral knee joint near patella. Pt also has palpable crepitus surrounding L patella with L knee ROM. L knee ROM 0- 110* (onset of pain at 65*). Pt demonstrates (+) Patellar grind, (+) patellar compression. Pt completes LEFS with a score of 9. Pt will benefit from skilled PT services to address theabove impairments and to work toward established functional goals. Prognosis: Fair Decision Making: Medium Complexity Patient Education Patient Education: PT POC and HEP Pt verbalized/demonstrated good understanding: [X] Yes [] No, pt required further clarification. Goals Short term goals Time Frame for Short term goals: 3 weeks Short term goal 1: Pt will initiate HEP. Short term goal 2: Pt will initiate LLE strengthening program to assist with addressing LLE muscle imbalance and decreasing pain. termite control service representative goals Time Frame for termite control service representative goals : 6 weeks skilled nursing goal 1: Pt will be independent and compliant with HEP. skilled nursing goal 2: Pt will improve LLE hip strength to >/= 4 to 4+/5 in all planes to improve LE muscle balance. skilled nursing goal 3: Pt will improve LEFS score to >/= 25 to improve QOL. skilled nursing goal 4: Pt will have (-) Patellar grind test to decrease knee pain. Patient goals : Walk without pain Minutes Tracking: Time In: 1521 Time Out: 1618 Minutes: 57 Timed Code Treatment Minutes: 54 Minutes Joseph Pedroza PT, DPT 07/19/[address] [facility] Phone: 1(218) 587-577811-19-2021 History of Present illness Narrative* Melany Emerson, PT - 05/24/2021 2:00 PM EST [facility] Outpatient Physical Therapy Daily Note Patient: Oswald Cox : 1995 CSN #: [id number] Referring Practitioner: Akanksha Sumner CNP Referral Date : 04/15/21 Date: 05/24/2021 Diagnosis: Acute bilateral LBP without sciatica, M54.50 Treatment Diagnosis: LBP, bilateral hip pain Onset Date: 09/12/20 PT Insurance Information: BS Total # of Visits Approved: 8 Per Physician Order Total # of Visits to Date: 11 No Show: 0 Canceled Appointment: 0 Pre-Treatment Pain: 6/10 Subjective: Patient reports pain has stayed about the same since beginning PT. 6/10 in R hip and knee. Reports grinding of R knee and plans to ask doctor about this next week when she follows up for her back. Exercises: Exercise 7: SciFIT: level 3 x8 minutes Exercise 10: PTB rows/shoulder extension 2x12 ea Exercise 11: Sit to stands 2x10 Manual: Other: TPDN with 2 needles to lumbar paraspinals, 3 needles to hip musculature with E-Stim Modalities: Moist heat: x10 min post tx session to hip and lumbar spine E-stim (parameters): Stim with TPDN Assessment Assessment: Patient has attended 11 PT visits for LBP and hip pain and has met LTG for improved lumbar ROM flexion: 6in from floor with no pain and B SB 2in below knees with no pain. Patient making good progress toward goals for improved B LE strength L LE: 4-/5 grossly limited by L knee pain and RLE 4/5 partially meeting LTG. Patient continues to have moderate to severe LBP and reports minimal to no improvement in symptoms since beginning PT. Will place patient on hold pending follow up with physician. Activity Tolerance Activity Tolerance: Patient Tolerated treatment well Patient Education Exercise technique Pt verbalized/demonstrated good understanding: [x] Yes [] No, pt required further clarification. 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 Minutes Tracking: Time In: 1400 Time Out: 1455 Minutes: 55 Timed Code Treatment Minutes: 54 Minutes Melany Emerson, PT , DPT Date: 05/24/[address] [facility] [facility] Phone: 1([phone]) 322-640611-09-2021 History of Present illness Narrative* Dl Kent, PT - 05/14/2021 2:45 PM EST [facility] Outpatient Physical Therapy Daily Note Patient: Oswald Cox : 1995 CSN #: [id number] Referring Practitioner: Akanksha Sumner CNP Referral Date : 04/15/21 Date: 05/14/2021 Diagnosis: Acute bilateral LBP without sciatica, M54.50 Treatment Diagnosis: LBP, bilateral hip pain Onset Date: 09/12/20 PT Insurance Information: BCBS Total # of Visits Approved: 8 Per Physician Order Total # of Visits to Date: 9 No Show: 0 Canceled Appointment: 0 Pre-Treatment Pain: 2-3/10 Subjective: Patient reports she is feeling much better, but continues to get pain in anterior left hip when she has a long stride with her R LE. Exercises: Exercise 2: Bridge 2x6 Exercise 3: PPT with september x10 ea Exercise 6: DKTC purple ball 10x Exercise 7: SciFIT: level 3 x8 minutes Exercise 8: Ralph step overs: forward and lateral 6 x10 ea Exercise 10: PTB rows/shoulder extension 2x12 ea Exercise 11: Sit to stands 2x10 Manual: Other: TPDN with 2 needles to lumbar paraspinals, 3 needles to hip musculature with E-Stim Modalities: Moist heat: x10 min post tx session to hip and lumbar spine E-stim (parameters): Stim with TPDN Assessment Body structures, Functions, Activity limitations: Decreased functional mobility , Decreased ROM, Decreased strength, Decreased endurance, Decreased posture, Increased pain Assessment: Patient able to tolerate resumption of core strengthening exercises. TPDN with stim to L hip to decrease trigger points and pain. Activity Tolerance Activity Tolerance: Patient Tolerated treatment well Patient Education Patient Education: HEP Pt verbalized/demonstrated good understanding: [x] Yes [] No, pt required further clarification. 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 Minutes Tracking: Time In: 1445 Time Out: 1535 Minutes: 50 Timed Code Treatment Minutes: 39 Minutes Dl Kent PT, DPT Date: 05/14/[address] [facility] Phone: 1(275) 223-555511-05-2021 History of Present illness Narrative* Dl Kent, PT - 05/10/2021 2:15 PM EDT [facility] Outpatient Physical Therapy Daily Note Patient: Oswald Cox : 1995 CSN #: [id number] Referring Practitioner: Akanksha Sumner CNP Referral Date : 04/15/21 Date: 05/10/2021 Diagnosis: Acute bilateral LBP without sciatica, M54.50 Treatment Diagnosis: LBP, bilateral hip pain Onset Date: 09/12/20 PT Insurance Information: [facility] Total # of Visits Approved: 8 Per Physician Order Total # of Visits to Date: 8 No Show: 0 Canceled Appointment: 0 Pre-Treatment Pain: 8/10 Subjective: Patient reports severe LBP with pain radiating to L hip. She reports difficulty gettingcomfortable to sleep last night and reports twisting a lot at work aggravated LBP. Exercises: Exercise 1: HEP: SKTC, PPT, piriformis stretch Exercise 9: SKTC x5 for 5 sec hold Exercise 12: LTR x10 ea Manual: Other: TPDN with 2 needles to lumbar paraspinals, 3 needles to hip musculature with E-Stim Modalities: Moist heat: x15 min post tx session to hip and lumbar spine E-stim (parameters): Stim with TPDN Assessment Body structures, Functions, Activity limitations: Decreased functional mobility , Decreased ROM, Decreased strength, Decreased endurance, Decreased posture, Increased pain Assessment: Patient with reports of increased pain today. Used TPDN with stim and flexibility exercises to decrease pain. Activity Tolerance Activity Tolerance: Patient Tolerated treatment well Patient Education Patient Education: HEP Pt verbalized/demonstrated good understanding: [x] Yes [] No, pt required further clarification. 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 Minutes Tracking: Time In: 1415 Time Out: 1512 Minutes: 57 Timed Code Treatment Minutes: 55 Minutes Dl Kent PT, DPT Date: 05/10/2021 documented in this [facility] Work Phone: 1([phone]) 780-931310-21-2021 History of Present illness Narrative* Reza Patel - 04/25/2021 2:30 PM EDT [facility] Outpatient Physical Therapy Daily Note Patient: Oswald Cox : 1995 CSN #: [id number] Referring Practitioner: Akanksha Sumner CNP Referral Date : 04/15/21 Date: 04/25/2021 Diagnosis: Acute bilateral LBP without sciatica, M54.50 Treatment Diagnosis: LBP, bilateral hip pain Onset Date: 09/12/20 PT Insurance Information: [employer] Total # of Visits Approved: 8 Per Physician Order Total # of Visits to Date: 4 No Show: 0 Canceled Appointment: 0 Pre-Treatment Pain: 5/10 Subjective: Pt states pain is better since she started therapy. Pain is 6/10 today following work. Exercises: Exercise 1: HEP: SKTC, PPT, piriformis stretch Exercise 2: Bridge 2x5 Exercise 3: PPT with september x10 ea Exercise 4: LTR x10 ea Exercise 5: Purple ball squeeze 15x Exercise 6: DKTC purple ball 10x Manual: Piriformis stretching Modalities: Moist heat: x15 min post tx session to hip and lumbar spine E-stim (parameters): IFC with HP Assessment Assessment: Pt is feeling a little better. Pt staes painn in Left LB and hip region. Manual stretching to pirformis region. Reviewed proper bending and twisting mechanics. IFC/hp following session Activity Tolerance Activity Tolerance: Patient Tolerated treatment well Patient Education Patient Education: HEP Pt verbalized/demonstrated good understanding: [x] Yes [] No, pt required further clarification. 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 Minutes Tracking: Time In: 1430 Time Out: 1518 Minutes: 48 Reza A Daniela Date: 04/25/2021 [facility] Phone: [phone]) [phone] Evaluation note Includes: Assessments for all patient encounters Findings Encounter Date Assessment of body mass inde x [Body mass index [BMI] 45.0-49.9, adult] Medical Established Patient with Yohan Blanca PROFESSIONAL PROGRAMMER ANALYST 04/10/2021 Lumbago Medical Established Patient with Yohan Blanca PROFESSIONAL PROGRAMMER ANALYST 04/10/2021 Mild recurrent major depression Medical Established Patient with Yohan Blanca PROFESSIONAL PROGRAMMER ANALYST 04/10/2021 Post-traumatic stress disorder BH Establ ished Patient with Maia García [facility] 03/27/2021 Assessment of body mass index 48.7 Medic al Established Patient with Yohan Blanca PROFESSIONAL PROGRAMMER ANALYST 03/27/2021 Lumbago Medical Established Patient with Yohan Blanca PROFESSIONAL PROGRAMMER ANALYST 03/27/2021 Mild recurrent major depression Medical Established Patient with Yohan Blanca PROFESSIONAL PROGRAMMER ANALYST 03/27/2021 Body mass index [Body mass i ndex [BMI] 45.0-49.9, adult] Medical Established Patient with Yohan Blanca PROFESSIONAL PROGRAMMER ANALYST 09/25/2020 Mild recurrent major depression Medical Established Patient with Yohan Blanca PROFESSIONAL PROGRAMMER ANALYST 09/25/2020 Morbid obesity Medical Established Patient with Yohan Blanca PROFESSIONAL PROGRAMMER ANALYST 09/25/2020 Generalized anxiety disorder BH Establis hed Patient with Eufemia Short LISWS 08/28/2020 Mild recurrent major depression BH Estab lished Patient with Eufemia Short LISWS 08/28/2020 Allergic bronchitis Medical Established Patient with Yohan Blanca PROFESSIONAL PROGRAMMER ANALYST 08/28/2020 Assessment of snoring Medical Establishe d Patient with Yohan Blanca PROFESSIONAL PROGRAMMER ANALYST 08/28/2020 Body mass index [Body mass i ndex [BMI] 45.0-49.9, adult] Medical Established Patient with Yohan Blanca PROFESSIONAL PROGRAMMER ANALYST 08/28/2020 Mild recurrent major depression Medical Established Patient with Yohan Blanca PROFESSIONAL PROGRAMMER ANALYST 08/28/2020 Morbid obesity Medical Established Patient with Yohan Blanca PROFESSIONAL PROGRAMMER ANALYST 08/28/2020 Generalized anxiety disorder BH Establis hed Patient with Eufemia Short LISWS 07/25/2020 Mild recurrent major depression BH Estab lished Patient with Eufemia Short LISWS 07/25/2020 Body mass index Medical New Patient with Yohan Blanca PROFESSIONAL PROGRAMMER ANALYST 07/25/2020 Diabetes Risk Test Score was five score 07/25/2020 Medical New Patient with Yohan Blanca PROFESSIONAL PROGRAMMER ANALYST 07/25/2020 Morbid obesity Medical New Patient with Yohan Blanca PROFESSIONAL PROGRAMMER ANALYST 07/25/2020 [facility] Work Phone: [phone]) 244-944710-04-2021 Hospital Discharge instructions* Instructions* Leonard Reyes PA-C - 04/08/2021 Rest on a firm surface Drink plenty of fluids Ice or heat to affected area Gentle stretching Follow-up with your doctor in 1 to 2 days for recheck If symptoms worsen or other concerns please return to the emergency department * Attachments The following attachments cannot be sent through Care Everywhere. * UTI (Urinary Tract Infection): Female (Ugandan) documented in this [facility] Work Phone: 1([phone]) 605-619109-22-2021 Evaluation note Includes: Assessments for all patient encounters Findings Encounter Date Post-traumatic stress disorder BH Establ ished Patient with Maia García [facility] 03/27/2021 Assessment of body mass index 48.7 Medic al Established Patient with Yohan Blanca PROFESSIONAL PROGRAMMER ANALYST 03/27/2021 Lumbago Medical Established Patient with Yohan Blanca PROFESSIONAL PROGRAMMER ANALYST 03/27/2021 Mild recurrent major depression Medical Established Patient with Yohan Blanca PROFESSIONAL PROGRAMMER ANALYST 03/27/2021 Body mass index [Body mass i ndex [BMI] 45.0-49.9, adult] Medical Established Patient with Yohan Blanca PROFESSIONAL PROGRAMMER ANALYST 09/25/2020 Mild recurrent major depression Medical Established Patient with Yohan Blanca PROFESSIONAL PROGRAMMER ANALYST 09/25/2020 Morbid obesity Medical Established Patient with Yohan Blanca PROFESSIONAL PROGRAMMER ANALYST 09/25/2020 Generalized anxiety disorder BH Establis hed Patient with Eufemia Short LISWS 08/28/2020 Mild recurrent major depression Estab lished Patient with Eufemia Short LISWS 08/28/2020 Allergic bronchitis Medical Established Patient with Yohan Blanca PROFESSIONAL PROGRAMMER ANALYST 08/28/2020 Assessment of snoring Medical Establishe d Patient with Yohan Blanca PROFESSIONAL PROGRAMMER ANALYST 08/28/2020 Body mass index [Body mass i ndex [BMI] 45.0-49.9, adult] Medical Established Patient with Yohan Blanca PROFESSIONAL PROGRAMMER ANALYST 08/28/2020 Mild recurrent major depression Medical Established Patient with Yohan Blanca PROFESSIONAL PROGRAMMER ANALYST 08/28/2020 Morbid obesity Medical Established Patient with Yohan Blanca PROFESSIONAL PROGRAMMER ANALYST 08/28/2020 Generalized anxiety disorder Establis hed Patient with Eufemia Short LISWS 07/25/2020 Mild recurrent major depression BH Estab lished Patient with Eufemia Short LISWS 07/25/2020 Body mass index Medical New Patient with Yohan Blanca PROFESSIONAL PROGRAMMER ANALYST 07/25/2020 Diabetes Risk Test Score was five score 07/25/2020 Medical New Patient with Yohan Blanca PROFESSIONAL PROGRAMMER ANALYST 07/25/2020 Morbid obesity Medical New Patient with Yohan Blanca PROFESSIONAL PROGRAMMER ANALYST 07/25/2020 [facility] Work Phone: [phone]) 356-452608-23-2021 Hospital Discharge instructions* Instructions* Nieves Walters DO - 02/25/2021 Fill and take the doxycycline as prescribed. Follow-up with your family doctor. Return to the emergency department for new, worsening or worrisome symptoms which include but are not limited to increased pain, swelling and redness. documented in this [facility] Work Phone: 1(730) 731-416307-21-2021 History of Present illness Narrative* Nydia Richardson RN - 01/23/2021 8:50 AM EDT Patient verbalizes readiness for discharge at this time. All criteria met. Discharge Criteria Inpatients must meet Criteria 1 through 7. All other patients are either YES or N/A. If a NO is chosen then Anesthesia or Surgeon must be notified. 1. Minimum 30 minutes after last dose of sedative medication, minimum 120 minutes after last dose of reversal agent. Yes 2. Systolic BP stable within 20 mmHg for 30 minutes & systolic BP between 90 & 180 or within 10 mmHg of baseline. Yes 3. Pulse between 60 and 100 or within 10 bpm of baseline. Yes 4. Spontaneous respiratory rate >/= 10 per minute. Yes 5. SaO2 >/= 95 or >/= baseline. Yes 6. Able to cough and swallow or return to baseline function. Yes 7. Alert and oriented or return to baseline mental status. Yes 8. Demonstrates controlled, coordinated movements, ambulates with steady gait, or return to baseline activity function. Yes 9. Minimal or no pain or nausea, or at a level tolerable and acceptable to patient. Yes 10. Takes and retains oral fluids as allowed. Yes 11. Procedural / perioperative site stable. Minimal or no bleeding. Yes 12. If GI endoscopy procedure, minimal or no abdominal distention or passing flatus. N/A 13. Written discharge instructions and emergency telephone number provided. Yes 14. Accompanied by a responsible adult. Yes * Nydia Richardson RN - 01/23/2021 8:37 AM EDT Discharge instructions reviewed with patient and patient's sister. Verbalized understanding and denied any questions. * Leeanne Mishra [facility] - 01/23/2021 6:39 AM EDT Surgical Care Improvement Project Dose Adjustment The following antibiotic dose was adjusted by the pharmacist to meet SCIP guidelines. Dose adjustments made as approved by the Surgical Care Review Committee. Antibiotic Adjusted: Ancef adjusted to 3 gm for wt > 120 kg Leeanne Mishra [facility] 01/23/2021, 6:39 AM * Loida Loco RN - 01/11/2021 2:20 PM EDT Patient instructed on the pre-operative, intra-operative, and post-operative process. Patient's surgical procedure and day of surgery confirmed. Patient instructed on NPO status. Medication instructions reviewed with patient. CHG pre-operative wash instructions reviewed with patient. Pre operative instruction sheet reviewed with patient per PAT phone interview. Appointment time and instructions for pre-op COVID testing given to patient. * Ni Gibbons RN - 01/10/2021 2:37 PM EDT Attempted PAT phone call; no answer; message left to return PAT phone call. 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 Procedure Type of Study: Veins: Lower Extremities DVT Study, Venous Scan Lower Bilateral. Indications for Study:Edema. Patient Status:Out Patient. Technical Quality:Adequate visualization. Conclusions Summary No evidence of superficial or deep venous thrombosis in both lower extremities. Signature Findings: Right Impression: Left Impression: Common femoral, femoral, deep Common femoral, femoral, deep femoral, popliteal, tibials, femoral, popliteal, tibials, peroneal, and saphenous veins were peroneal, and saphenous veins were evaluated. evaluated. All veins were compressible and with All veins were compressible and with normal doppler responses. normal doppler responses. Velocities are measured in cm/s ; Diameters are measured in cm Right Lower Extremities DVT Study Measurements Right 2D Measurements + + + + + !Location !Visualized!Compressibility!Thrombosis! + + + + + !Common Femoral !Yes !Yes !None ! + + + + + !Prox Femoral !Yes !Yes !None ! + + + + + !Mid Femoral !Yes !Yes !None ! + + + + + !Dist Femoral !Yes !Yes !None ! + + + + + !Deep Femoral !Yes !Yes !None ! + + + + + !Popliteal !Yes !Yes !None ! + + + + + !Sapheno Femoral Junction !Yes !Yes !None ! + + + + + !PTV !Yes !Yes !None ! + + + + + !Peroneal !Yes !Yes !None ! + + + + + !Gastroc !Yes !Yes !None ! + + + + + !GSV Thigh !Yes !Yes !None ! + + + + + !GSV Knee !Yes !Yes !None ! + + + + + !GSV Ankle !Yes !Yes !None ! + + + + + !SSV !Yes !Yes !None ! + + + + + Right Doppler Measurements + +------+------+ + !Location !Signal!Reflux!Reflux (msec) ! + +------+------+ + !Common Femoral !Phasic!No ! ! + +------+------+ + !Prox Femoral (more content not included)...[employer] Phone: [phone]) [phone] History general Narrative - Reported Includes: Medical History in patient's chart Description Last Updated History of gynecologic disorder PCOS, en dometriosis 07/25/2020 [facility] Work Phone: Evaluation note* Diagnosis RLQ abdominal pain Abdominal pain, right lower quadrant documented in this encounter [employer] Phone: evaluation note* Diagnosis Abdominal pain, right lower quadrant- Primary documented in this encounter [employer] Phone: evaluation note* Diagnosis Pre-op testing- Primary Preoperative examination, unspecified documented in this encounter [employer] Phone: evaluation note* Diagnosis Right carpal tunnel syndrome- Primary Carpal tunnel syndrome documented in this encounter [employer] Phone: evaluation note* Diagnosis Edema, unspecified type Pain of lower extremity, unspecified laterality documented in this encounter [employer] Phone: evaluation note* Diagnosis Left leg pain- Primary Pain in limb Cellulitis, unspecified cellulitis site documented in this encounter [employer] Phone: evaluation note* Diagnosis Strain of lumbar region, initial encounter- Primary Morbid obesity due to excess calories (HCC) documented in this encounter [employer] Phone: evaluation note* Diagnosis Thoracic myofascial strain, initial encounter- Primary Acute cystitis without hematuria Acute cystitis documented in this encounter [employer] Phone: evaluation note* Diagnosis Injury of head, initial encounter- Primary Concussion without loss of consciousness, initial encounter documented in this encounter [employer] Phone: evaluation note* Diagnosis Left hip pain- Primary Pain in joint, pelvic region and thigh documented in this encounter [employer] Phone: evaluation note* Diagnosis Lumbar radiculitis Thoracic or lumbosacral neuritis or radiculitis, unspecified Lumbosacral spondylosis with radiculopathy DDD (degenerative disc disease), lumbar Degeneration of lumbar or lumbosacral intervertebral disc Lumbar pain Lumbago documented in this encounter [facility] [employer] Phone: evaluation note* Diagnosis Chronic midline low back pain with left-sided sciatica- Primary Lumbar radiculopathy Thoracic or lumbosacral neuritis or radiculitis, unspecified Degenerative disc disease, lumbar Degeneration of lumbar or lumbosacral intervertebral disc Degenerative arthropathy of spinal facet joint Spondylosis of unspecified site without mention of myelopathy Numbness and tingling Disturbance of skin sensation Lumbar radiculopathy Thoracic or lumbosacral neuritis or radiculitis, unspecified [facility] Diagnosis Lumbar radiculopathy Thoracic or lumbosacral neuritis or radiculitis, unspecified [facility] Diagnosis Facet arthropathy, lumbar- Primary Lumbosacral spondylosis without myelopathy Lumbar degenerative disc disease Degeneration of lumbar or lumbosacral intervertebral disc Lumbar facet arthropathy Lumbosacral spondylosis without myelopathy [facility] Diagnosis Back strain, initial encounter- Primary Sprain of right ankle, unspecified ligament, initial encounter Closed head injury, initial encounter Acute right ankle pain documented in this encounter [employer] Phone: evaluation note* Diagnosis Viral URI with cough- Primary Acute upper respiratory infections of unspecified site Nausea and vomiting, unspecified vomiting type documented in this encounter [employer] Phone: evaluation note* Diagnosis Acute upper respiratory infection- Primary Acute upper respiratory infections of unspecified site Mild asthma exacerbation Unspecified asthma, with exacerbation documented in this encounter [employer] Phone: evaluation note* Diagnosis Mild intermittent asthma with exacerbation- Primary Unspecified asthma, with exacerbation Bronchitis Bronchitis, not specified as acute or chronic documented in this encounter [employer] Phone: evaluation note* Diagnosis COVID-19 virus infection- Primary Lung nodule Solitary pulmonary nodule documented in this encounter [employer] Phone: evaluation note* Diagnosis Palpitations documented in this encounter [employer] Phone: evaluation note* Diagnosis Atypical chest pain- Primary Other chest pain Peripheral edema Edema Trigger index finger of left hand Trigger finger (acquired) documented in this encounter [employer] Phone: evaluation note* Diagnosis Chest pressure Other chest pain Heart palpitations Palpitations PVC (premature ventricular contraction) Other premature beats Lightheaded Dizziness and giddiness Menorrhagia with regular cycle Excessive or frequent menstruation documented in this encounter [employer] Phone: evaluation note* Diagnosis Chest pressure Other chest pain Heart palpitations Palpitations PVC (premature ventricular contraction) Other premature beats Lightheaded Dizziness and giddiness Menorrhagia with regular cycle Excessive or frequent menstruation documented in this encounter [employer] Phone: evaluation note* Diagnosis Chest pressure Other chest pain Heart palpitations Palpitations PVC (premature ventricular contraction) Other premature beats Lightheaded Dizziness and giddiness Menorrhagia with regular cycle Excessive or frequent menstruation documented in this encounter [employer] Phone: evaluation note Includes: Assessments for all patient encounters Findings Encounter Date Acute post-traumatic stress disorder Established Patient with Nieves Slough [employer]SEM[employer] WORKER[employer] 12/26/2022 Last Documented On 3 12:25PM ; [place] [facility] Moderate recurrent major depression E stablished Patient with Nieves Slough ASSEMBLY LINE WORKER-S 12/26/2022 Last Documented On 3 12:25PM ; [facility] [Body mass index [BMI] 45.0- 49.9, adult] assessment of body mass index Medical Established Patient with Yohan Blanca PROFESSIONAL PROGRAMMER ANALYST 12/26/2022 Last Documented On 3 11:54AM ; [facility] Major depression, recurrent BH Establish ed Patient with Prachi Yifan LPCC-S 10/08/2022 Last Documented On 3 4:17PM ; [facility] [Body mass index [BMI] 45.0- 49.9, adult] assessment of body mass index Medical Established Patient with Yohan Blanca PROFESSIONAL PROGRAMMER ANALYST 10/08/2022 Last Documented On 3 3:31PM ; [facility] Moderate recurrent major depression Medi larisa Established Patient with Yohan Blanca PROFESSIONAL PROGRAMMER ANALYST 10/08/2022 Last Documented On 3 3:31PM ; [facility] Palpitations Medical Established Patient with Yohan Blanca PROFESSIONAL PROGRAMMER ANALYST 10/08/2022 Last Documented On 3 3:31PM ; [facility] [Body mass index [BMI] 45.0- 49.9, adult] assessment of body mass index Medical Established Patient with Yohan Blanca PROFESSIONAL PROGRAMMER ANALYST 09/02/2022 Last Documented On 3 2:30PM ; [facility] Moderate recurrent major depression [facility] Established Patient with Yohan Blanca PROFESSIONAL PROGRAMMER ANALYST 09/02/2022 Last Documented On 3 2:30PM ; [facility] [Body mass index [BMI] 45.0- 49.9, adult] assessment of body mass index Medical Established Patient with Yohan Blanca PROFESSIONAL PROGRAMMER ANALYST 07/30/2022 Last Documented On 3 7:50AM ; [facility] [Moderate persistent asthma with (acute) exacerbation] moderate persistent asthma with acute exacerbation Medical Established Patient with Yohan Blanca PROFESSIONAL PROGRAMMER ANALYST 07/30/2022 Last Documented On 3 7:50AM ; [facility] Diabetes Risk Test Score was 5.0 score 07/30/2022 Medical Established Patient with Yohan Blanca PROFESSIONAL PROGRAMMER ANALYST 07/30/2022 Last Documented On 3 7:50AM ; [facility] Assessment of body mass inde x [Body mass index [BMI] 45.0-49.9, adult] Medical Established Patient with Yohan Blanca PROFESSIONAL PROGRAMMER ANALYST 03/04/2022 Last Documented On 2 5:57PM ; [facility] Established Patient with Yohan Blanca PROFESSIONAL PROGRAMMER ANALYST 03/04/2022 Last Documented On 2 5:57PM ; [facility] Moderate recurrent major depression BH E stablished Patient with Maia García LPCC-S 11/22/2021 Last Documented On 2 9:49PM ; [facility] Assessment of body mass inde x [Body mass index [BMI] 45.0-49.9, adult] Medical Established Patient with Yohan Blanca PROFESSIONAL PROGRAMMER ANALYST 11/22/2021 Last Documented On 2 7:42PM ; [facility] Assessment of hip joint pain worse while standing Medical Established Patient with Yohan Blanca PROFESSIONAL PROGRAMMER ANALYST 11/22/2021 Last Documented On 2 7:42PM ; [facility] Moderate recurrent major depression BH E stablished Patient with Maia García LPCC-S 08/12/2021 Last Documented On 2 9:29PM ; [facility] Assessment of body mass index Medical Es tablished Patient with Falguni Han PROFESSIONAL PROGRAMMER ANALYST 08/12/2021 Last Documented On 2 1:16PM ; [facility] Concussion Medical Established Patient with Falguni Han PROFESSIONAL PROGRAMMER ANALYST 08/12/2021 Last Documented On 2 1:16PM ; [facility] Concussion injury of brain Medical Estab lished Patient with Falguni Han PROFESSIONAL PROGRAMMER ANALYST 08/12/2021 Last Documented On 2 1:16PM ; [facility] Moderate recurrent major depression BH E stablished Patient with Maiachang García LPCC-S 08/05/2021 Last Documented On 2 2:41PM ; [facility] Assessment of body mass inde x [Body mass index [BMI] 45.0-49.9, adult] Medical Established Patient with Yohan Blanca PROFESSIONAL PROGRAMMER ANALYST 08/05/2021 Last Documented On 2 7:47PM ; [facility] Concussion injury of brain Medical Estab lished Patient with Yohan Blanca PROFESSIONAL PROGRAMMER ANALYST 08/05/2021 Last Documented On 2 7:47PM ; [facility] Diabetes Risk Test Score was four score 08/05/2021 Medical Established Patient with Yohan Blanca PROFESSIONAL PROGRAMMER ANALYST 08/05/2021 Last Documented On 2 7:47PM ; [facility] Assessment of body mass inde x [Body mass index [BMI] 45.0-49.9, adult] Medical Established Patient with Yohan Blanca PROFESSIONAL PROGRAMMER ANALYST 04/10/2021 Last Documented On 1 4:38PM ; [facility] Lumbago Medical Established Patient with Yohan Blanca PROFESSIONAL PROGRAMMER ANALYST 04/10/2021 Last Documented On 1 4:38PM ; [facility] Mild recurrent major depression Medical Established Patient with Yohan Blanca PROFESSIONAL PROGRAMMER ANALYST 04/10/2021 Last Documented On 1 4:38PM ; [facility] Post-traumatic stress disorder BH Establ ished Patient with Maia García LPCC-S 03/27/2021 Last Documented On 1 1:03AM ; [facility] Assessment of body mass index 48.7 Medic al Established Patient with Yohan Blanca PROFESSIONAL PROGRAMMER ANALYST 03/27/2021 Last Documented On 1 5:53PM ; [facility] Lumbago Medical Established Patient with Yohan Blanca PROFESSIONAL PROGRAMMER ANALYST 03/27/2021 Last Documented On 1 5:53PM ; [facility] Mild recurrent major depression Medical Established Patient with Yohan Blanca PROFESSIONAL PROGRAMMER ANALYST 03/27/2021 Last Documented On 1 5:53PM ; [facility] Body mass index [Body mass i ndex [BMI] 45.0-49.9, adult] Medical Established Patient with Yohan Blanca PROFESSIONAL PROGRAMMER ANALYST 09/25/2020 Last Documented On 1 12:19PM ; [facility] Mild recurrent major depression Medical Established Patient with Yohan Blanca PROFESSIONAL PROGRAMMER ANALYST 09/25/2020 Last Documented On 1 12:19PM ; [facility] Morbid obesity Medical Established Patient with Yohan Blanca PROFESSIONAL PROGRAMMER ANALYST 09/25/2020 Last Documented On 1 12:19PM ; [facility] Generalized anxiety disorder BH Establis hed Patient with Eufemia Short LISWS 08/28/2020 Last Documented On 1 2:23PM ; [facility] Mild recurrent major depression BH Estab lished Patient with Eufemia Short LISWS 08/28/2020 Last Documented On 1 2:23PM ; [facility] Allergic bronchitis Medical Established Patient with Yohan Blanca PROFESSIONAL PROGRAMMER ANALYST 08/28/2020 Last Documented On 1 3:27PM ; [facility] Assessment of snoring Medical Established Patien t with Yohan Blanca PROFESSIONAL PROGRAMMER ANALYST 08/28/2020 Last Documented On 1 3:27PM ; [facility] Body mass index [Body mass i ndex [BMI] 45.0-49.9, adult] Medical Established Patient with Yoahn Blanca PROFESSIONAL PROGRAMMER ANALYST 08/28/2020 Last Documented On 1 3:27PM ; [facility] Mild recurrent major depression Medical Established Patient with Yohan Blanca PROFESSIONAL PROGRAMMER ANALYST 08/28/2020 Last Documented On 1 3:27PM ; [facility] Morbid obesity Medical Established Patient with Yohan Blanca PROFESSIONAL PROGRAMMER ANALYST 08/28/2020 Last Documented On 1 3:27PM ; [facility] Generalized anxiety disorder BH Establis hed Patient with Eufemia Short LISWS 07/25/2020 Last Documented On 1 1:33PM ; [facility] Mild recurrent major depression BH Estab lished Patient with Eufemia Short LISWS 07/25/2020 Last Documented On 1 1:33PM ; [facility] Body mass index Medical New Patient with Yohan Blanca PROFESSIONAL PROGRAMMER ANALYST 07/25/2020 Last Documented On 1 9:00AM ; [facility] Diabetes Risk Test Score was five score 07/25/2020 Medical New Patient with Yohan Blanca PROFESSIONAL PROGRAMMER ANALYST 07/25/2020 Last Documented On 1 9:00AM ; [facility] Morbid obesity Medical New Patient with Yohan Blanca PROFESSIONAL PROGRAMMER ANALYST 07/25/2020 Last Documented On 1 9:00AM ; [facility] Work Phone: Evaluation note Includes: Assessments for all patient encounters Findings Encounter Date Acute post-traumatic stress disorder BH Established Patient with Nieves Slough ASSEMBLY LINE WORKER-S 12/26/2022 Last Documented On 3 12:25PM ; [facility] Moderate recurrent major depression BH E stablished Patient with Nieves Slough ASSEMBLY LINE WORKER-S 12/26/2022 Last Documented On 3 12:25PM ; [facility] [Body mass index [BMI] 45.0- 49.9, adult] assessment of body mass index Medical Established Patient with Yohan Blanca PROFESSIONAL PROGRAMMER ANALYST 12/26/2022 Last Documented On 3 1:00PM ; [facility] Moderate recurrent major depression Medi larisa Established Patient with Yohan Blanca PROFESSIONAL PROGRAMMER ANALYST 12/26/2022 Last Documented On 3 1:00PM ; [facility] Major depression, recurrent BH Establish ed Patient with Prachi Saha LPCC-S 10/08/2022 Last Documented On 3 4:17PM ; [facility] [Body mass index [BMI] 45.0- 49.9, adult] assessment of body mass index Medical Established Patient with Yohan Blanca PROFESSIONAL PROGRAMMER ANALYST 10/08/2022 Last Documented On 3 3:31PM ; [facility] Moderate recurrent major depression Medi larisa Established Patient with Yohan Blanca PROFESSIONAL PROGRAMMER ANALYST 10/08/2022 Last Documented On 3 3:31PM ; [facility] Palpitations Medical Established Patient with Yohan Lbanca PROFESSIONAL PROGRAMMER ANALYST 10/08/2022 Last Documented On 3 3:31PM ; [facility] [Body mass index [BMI] 45.0- 49.9, adult] assessment of body mass index Medical Established Patient with Yohan Blanca PROFESSIONAL PROGRAMMER ANALYST 09/02/2022 Last Documented On 3 2:30PM ; [facility] Moderate recurrent major depression Medi larisa Established Patient with Yohan Blanca PROFESSIONAL PROGRAMMER ANALYST 09/02/2022 Last Documented On 3 2:30PM ; [facility] [Body mass index [BMI] 45.0- 49.9, adult] assessment of body mass index Medical Established Patient with Yohan Blanca PROFESSIONAL PROGRAMMER ANALYST 07/30/2022 Last Documented On 3 7:50AM ; [facility] [Moderate persistent asthma with (acute) exacerbation] moderate persistent asthma with acute exacerbation Medical Established Patient with Yohan Blanca PROFESSIONAL PROGRAMMER ANALYST 07/30/2022 Last Documented On 3 7:50AM ; [facility] Diabetes Risk Test Score was 5.0 score 07/30/2022 Medical Established Patient with Yohan Blanca PROFESSIONAL PROGRAMMER ANALYST 07/30/2022 Last Documented On 3 7:50AM ; [facility] Assessment of body mass inde x [Body mass index [BMI] 45.0-49.9, adult] Medical Established Patient with Yohan Blanca PROFESSIONAL PROGRAMMER ANALYST 03/04/2022 Last Documented On 2 5:57PM ; [facility] Lumbago Medical Established Patient with Yohan Blanca PROFESSIONAL PROGRAMMER ANALYST 03/04/2022 Last Documented On 2 5:57PM ; [facility] Moderate recurrent major depression BH E stablished Patient with Maia García [facility] 11/22/2021 Last Documented On 2 9:49PM ; [facility] Assessment of body mass inde x [Body mass index [BMI] 45.0-49.9, adult] Medical Established Patient with Yohan Blanca PROFESSIONAL PROGRAMMER ANALYST 11/22/2021 Last Documented On 2 7:42PM ; [facility] Assessment of hip joint pain worse while standing Medical Established Patient with Yohan Blanca PROFESSIONAL PROGRAMMER ANALYST 11/22/2021 Last Documented On 2 7:42PM ; [facility] Moderate recurrent major depression BH E stablished Patient with Maiachang Wongs LPCC-S 08/12/2021 Last Documented On 2 9:29PM ; [facility] Assessment of body mass index Medical Es tablished Patient with Falguni Han PROFESSIONAL PROGRAMMER ANALYST 08/12/2021 Last Documented On 2 1:16PM ; [facility] Concussion Medical Established Patient with Falguni Guille PROFESSIONAL PROGRAMMER ANALYST 08/12/2021 Last Documented On 2 1:16PM ; [facility] Concussion injury of brain Medical Estab lished Patient with Falguni Guille PROFESSIONAL PROGRAMMER ANALYST 08/12/2021 Last Documented On 2 1:16PM ; [facility] Moderate recurrent major depression BH E stablished Patient with Maiachang Wongs LPCC-S 08/05/2021 Last Documented On 2 2:41PM ; [facility] Assessment of body mass inde x [Body mass index [BMI] 45.0-49.9, adult] Medical Established Patient with Yohan Blanca PROFESSIONAL PROGRAMMER ANALYST 08/05/2021 Last Documented On 2 7:47PM ; [facility] Concussion injury of brain Medical Estab lished Patient with Yohan Blanca PROFESSIONAL PROGRAMMER ANALYST 08/05/2021 Last Documented On 2 7:47PM ; [facility] Diabetes Risk Test Score was four score 08/05/2021 Medical Established Patient with Yohan Blanca PROFESSIONAL PROGRAMMER ANALYST 08/05/2021 Last Documented On 2 7:47PM ; [facility] Assessment of body mass inde x [Body mass index [BMI] 45.0-49.9, adult] Medical Established Patient with Yohan Blanca PROFESSIONAL PROGRAMMER ANALYST 04/10/2021 Last Documented On 1 4:38PM ; [facility] Medical Established Patient with Yohan Blanca PROFESSIONAL PROGRAMMER ANALYST 04/10/2021 Last Documented On 1 4:38PM ; [facility] Mild recurrent major depression Medical Established Patient with Yohan Blanca PROFESSIONAL PROGRAMMER ANALYST 04/10/2021 Last Documented On 1 4:38PM ; [facility] Post-traumatic stress disorder Establ ished Patient with Maia García LPC-S 03/27/2021 Last Documented On 1 1:03AM ; [facility] Assessment of body mass index 48.7 Medic al Established Patient with Yohan Blanca PROFESSIONAL PROGRAMMER ANALYST 03/27/2021 Last Documented On 1 5:53PM ; [facility] Medical Established Patient with Yohan Blanca PROFESSIONAL PROGRAMMER ANALYST 03/27/2021 Last Documented On 1 5:53PM ; [facility] Mild recurrent major depression Medical Established Patient with Yohan Blanca PROFESSIONAL PROGRAMMER ANALYST 03/27/2021 Last Documented On 1 5:53PM ; [facility] Body mass index [Body mass i ndex [BMI] 45.0-49.9, adult] Medical Established Patient with Yohan Blanca PROFESSIONAL PROGRAMMER ANALYST 09/25/2020 Last Documented On 1 12:19PM ; [facility] Mild recurrent major depression Medical Established Patient with Yohan Blanca PROFESSIONAL PROGRAMMER ANALYST 09/25/2020 Last Documented On 1 12:19PM ; [facility] Morbid obesity Medical Established Patient with Yohan Blanca PROFESSIONAL PROGRAMMER ANALYST 09/25/2020 Last Documented On 1 12:19PM ; [facility] Generalized anxiety disorder Establis hed Patient with Eufemia Short LISWS 08/28/2020 Last Documented On 1 2:23PM ; [facility] Mild recurrent major depression Estab lished Patient with Eufemia Short LISWS 08/28/2020 Last Documented On 1 2:23PM ; [facility] Allergic bronchitis Medical Established Patient with Yohan Blanca PROFESSIONAL PROGRAMMER ANALYST 08/28/2020 Last Documented On 1 3:27PM ; [facility] Assessment of snoring Medical Established Patien t with Yohan Blanca PROFESSIONAL PROGRAMMER ANALYST 08/28/2020 Last Documented On 1 3:27PM ; [facility] Body mass index [Body mass i ndex [BMI] 45.0-49.9, adult] Medical Established Patient with Yohan Blanca PROFESSIONAL PROGRAMMER ANALYST 08/28/2020 Last Documented On 1 3:27PM ; [facility] Mild recurrent major depression Medical Established Patient with Yohan Blanca PROFESSIONAL PROGRAMMER ANALYST 08/28/2020 Last Documented On 1 3:27PM ; [facility] Morbid obesity Medical Established Patient with Yohan Blanca PROFESSIONAL PROGRAMMER ANALYST 08/28/2020 Last Documented On 1 3:27PM ; [facility] Generalized anxiety disorder Establis hed Patient with Eufemia Short LISWS 07/25/2020 Last Documented On 1 1:33PM ; [facility] Mild recurrent major depression BH Estab lished Patient with Eufemia Short LISWS 07/25/2020 Last Documented On 1 1:33PM ; [facility] Body mass index Medical New Patient with Yohan Blanca PROFESSIONAL PROGRAMMER ANALYST 07/25/2020 Last Documented On 1 9:00AM ; [facility] Diabetes Risk Test Score was five score 07/25/2020 Medical New Patient with Yohan Blanca PROFESSIONAL PROGRAMMER ANALYST 07/25/2020 Last Documented On 1 9:00AM ; [facility] Morbid obesity Medical New Patient with Yohan Blanca PROFESSIONAL PROGRAMMER ANALYST 07/25/2020 Last Documented On 1 9:00AM ; [facility] Work Phone: Evaluation note* Diagnosis Peripheral edema- Primary Edema documented in this encounter [facility] [employer] HEALTHEvaluation note* Diagnosis Pleuritic chest pain- Primary Painful respiration [facility] Includes: Assessments for all patient encounters Findings Encounter Date Assessment of body mass index Medical Es tablished Patient with Yohan Blanca PROFESSIONAL PROGRAMMER ANALYST 09/07/2023 Last Documented On 4 10:03AM ; [facility] Diabetes Risk Test Score was four score 09/07/2023 Medical Established Patient with Yohan Blanca PROFESSIONAL PROGRAMMER ANALYST 09/07/2023 Last Documented On 4 10:03AM ; [facility] Obesity Medical Established Patient with Yohan Blanca PROFESSIONAL PROGRAMMER ANALYST 09/07/2023 Last Documented On 4 10:03AM ; [facility] Moderate recurrent major depression BH E stablished Patient with Yaneth Singletary MILK BOTTLING MACHINE OPERATOR 07/24/2023 Last Documented On 4 6:52PM ; [facility] [Body mass index [BMI] 45.0- 49.9, adult] assessment of body mass index Medical Established Patient with Yohan Blanca PROFESSIONAL PROGRAMMER ANALYST 07/24/2023 Last Documented On 4 10:49AM ; [facility] Assessment of hip joint pain worse while standing Medical Established Patient with Yohan Blanca PROFESSIONAL PROGRAMMER ANALYST 07/24/2023 Last Documented On 4 10:49AM ; [facility] Obesity Medical Established Patient with Yohan Blanca PROFESSIONAL PROGRAMMER ANALYST 07/24/2023 Last Documented On 4 10:49AM ; [facility] Moderate recurrent major depression E stablished Patient with Eufemia HAYES 06/24/2023 Last Documented On 3 5:23PM ; [facility] [E66.8 - Other obesity] obesity Medical Established Patient with Nargis Reynolds PROFESSIONAL PROGRAMMER ANALYST 06/24/2023 Last Documented On 3 6:42PM ; [facility] [Z68.42 - Body mass index [B NE] 45.0-49.9, adult] assessment of body mass index Medical Established Patient with Nargismanju Franciscoen PROFESSIONAL PROGRAMMER ANALYST 06/24/2023 Last Documented On 3 6:42PM ; [facility] Venipuncture was performed Medical Estab lished Patient with Nargis Rodolfo PROFESSIONAL PROGRAMMER ANALYST 06/24/2023 Last Documented On 3 6:42PM ; [facility] Acute post-traumatic stress disorder Established Patient with Nieves Cormier ASSEMBLY LINE WORKER-S 12/26/2022 Last Documented On 3 12:25PM ; [facility] Moderate recurrent major depression BH E stablished Patient with Nieves Chaurishi ASSEMBLY LINE WORKER-S 12/26/2022 Last Documented On 3 12:25PM ; [facility] [Body mass index [BMI] 45.0- 49.9, adult] assessment of body mass index Medical Established Patient with Yohan Blanca PROFESSIONAL PROGRAMMER ANALYST 12/26/2022 Last Documented On 3 8:24AM ; [facility] Moderate recurrent major depression Medi larisa Established Patient with Yohan Blanca PROFESSIONAL PROGRAMMER ANALYST 12/26/2022 Last Documented On 3 8:24AM ; [facility] Major depression, recurrent BH Establish ed Patient with Prachi Saha LPCC-S 10/08/2022 Last Documented On 3 4:17PM ; [facility] [Body mass index [BMI] 45.0- 49.9, adult] assessment of body mass index Medical Established Patient with Yohan Blanca PROFESSIONAL PROGRAMMER ANALYST 10/08/2022 Last Documented On 3 3:31PM ; [facility] Moderate recurrent major depression Medi larisa Established Patient with Yohan Blanca PROFESSIONAL PROGRAMMER ANALYST 10/08/2022 Last Documented On 3 3:31PM ; [facility] Palpitations Medical Established Patient with Yohan Blanca PROFESSIONAL PROGRAMMER ANALYST 10/08/2022 Last Documented On 3 3:31PM ; [facility] [Body mass index [BMI] 45.0- 49.9, adult] assessment of body mass index Medical Established Patient with Yohan Blanca PROFESSIONAL PROGRAMMER ANALYST 09/02/2022 Last Documented On 3 2:30PM ; [facility] Moderate recurrent major depression Medi larisa Established Patient with Yohan Blanca PROFESSIONAL PROGRAMMER ANALYST 09/02/2022 Last Documented On 3 2:30PM ; [facility] [Body mass index [BMI] 45.0- 49.9, adult] assessment of body mass index Medical Established Patient with Yohan Blanca PROFESSIONAL PROGRAMMER ANALYST 07/30/2022 Last Documented On 3 7:50AM ; [facility] [Moderate persistent asthma with (acute) exacerbation] moderate persistent asthma with acute exacerbation Medical Established Patient with Yohan Blanca PROFESSIONAL PROGRAMMER ANALYST 07/30/2022 Last Documented On 3 7:50AM ; [facility] Diabetes Risk Test Score was 5.0 score 07/30/2022 Medical Established Patient with Yohan Blanca PROFESSIONAL PROGRAMMER ANALYST 07/30/2022 Last Documented On 3 7:50AM ; [facility] Assessment of body mass inde x [Body mass index [BMI] 45.0-49.9, adult] Medical Established Patient with Yohan Blanca PROFESSIONAL PROGRAMMER ANALYST 03/04/2022 Last Documented On 2 5:57PM ; [facility] Lumbago Medical Established Patient with Yohan Blanca PROFESSIONAL PROGRAMMER ANALYST 03/04/2022 Last Documented On 2 5:57PM ; [facility] Moderate recurrent major depression BH E stablished Patient with Maia García LPCC-S 11/22/2021 Last Documented On 2 9:49PM ; [facility] Assessment of body mass inde x [Body mass index [BMI] 45.0-49.9, adult] Medical Established Patient with Yohan Blanca PROFESSIONAL PROGRAMMER ANALYST 11/22/2021 Last Documented On 2 7:42PM ; [facility] Assessment of hip joint pain worse while standing Medical Established Patient with Yohan Blanca PROFESSIONAL PROGRAMMER ANALYST 11/22/2021 Last Documented On 2 7:42PM ; [facility] Moderate recurrent major depression BH E stablished Patient with Maia García LPCC-S 08/12/2021 Last Documented On 2 9:29PM ; [facility] Assessment of body mass index Medical Es tablished Patient with Falguni Guille PROFESSIONAL PROGRAMMER ANALYST 08/12/2021 Last Documented On 2 1:16PM ; [facility] Concussion Medical Established Patient with Falguni Guille PROFESSIONAL PROGRAMMER ANALYST 08/12/2021 Last Documented On 2 1:16PM ; [facility] Concussion injury of brain Medical Estab lished Patient with Falguni Guille PROFESSIONAL PROGRAMMER ANALYST 08/12/2021 Last Documented On 2 1:16PM ; [facility] Moderate recurrent major depression BH E stablished Patient with Maia García LPCC-S 08/05/2021 Last Documented On 2 2:41PM ; [facility] Assessment of body mass inde x [Body mass index [BMI] 45.0-49.9, adult] Medical Established Patient with Yohan Blanca PROFESSIONAL PROGRAMMER ANALYST 08/05/2021 Last Documented On 2 7:47PM ; [facility] Concussion injury of brain Medical Estab lished Patient with Yohan Blanca PROFESSIONAL PROGRAMMER ANALYST 08/05/2021 Last Documented On 2 7:47PM ; [facility] Diabetes Risk Test Score was four score 08/05/2021 Medical Established Patient with Yohan Blanca PROFESSIONAL PROGRAMMER ANALYST 08/05/2021 Last Documented On 2 7:47PM ; [facility] Assessment of body mass inde x [Body mass index [BMI] 45.0-49.9, adult] Medical Established Patient with Yohan Blanca PROFESSIONAL PROGRAMMER ANALYST 04/10/2021 Last Documented On 1 4:38PM ; [facility] Medical Established Patient with Yohan Blanca PROFESSIONAL PROGRAMMER ANALYST 04/10/2021 Last Documented On 1 4:38PM ; [facility] Mild recurrent major depression Medical Established Patient with Yohan Blanca PROFESSIONAL PROGRAMMER ANALYST 04/10/2021 Last Documented On 1 4:38PM ; [facility] Post-traumatic stress disorder BH Establ ished Patient with Maia García [facility] 03/27/2021 Last Documented On 1 1:03AM ; [facility] Assessment of body mass index 48.7 Medic al Established Patient with Yohan Blanca PROFESSIONAL PROGRAMMER ANALYST 03/27/2021 Last Documented On 1 5:53PM ; [facility] Medical Established Patient with Yohan Blanca PROFESSIONAL PROGRAMMER ANALYST 03/27/2021 Last Documented On 1 5:53PM ; [facility] Mild recurrent major depression Medical Established Patient with Yohan Blanca PROFESSIONAL PROGRAMMER ANALYST 03/27/2021 Last Documented On 1 5:53PM ; [facility] Body mass index [Body mass i ndex [BMI] 45.0-49.9, adult] Medical Established Patient with Yohan Blanca PROFESSIONAL PROGRAMMER ANALYST 09/25/2020 Last Documented On 1 12:19PM ; [facility] Mild recurrent major depression Medical Established Patient with Yohan Blanca PROFESSIONAL PROGRAMMER ANALYST 09/25/2020 Last Documented On 1 12:19PM ; [facility] Morbid obesity Medical Established Patient with Yohan Blanca PROFESSIONAL PROGRAMMER ANALYST 09/25/2020 Last Documented On 1 12:19PM ; [facility] Generalized anxiety disorder BH Establis hed Patient with Eufemia Short LISWS 08/28/2020 Last Documented On 1 2:23PM ; [facility] Mild recurrent major depression BH Estab lished Patient with Eufemia Short LISWS 08/28/2020 Last Documented On 1 2:23PM ; [facility] Allergic bronchitis Medical Established Patient with Yohan Blanca PROFESSIONAL PROGRAMMER ANALYST 08/28/2020 Last Documented On 1 3:27PM ; [facility] Assessment of snoring Medical Established Patien t with Yohan Blanca PROFESSIONAL PROGRAMMER ANALYST 08/28/2020 Last Documented On 1 3:27PM ; [facility] Body mass index [Body mass i ndex [BMI] 45.0-49.9, adult] Medical Established Patient with Yohan Blanca PROFESSIONAL PROGRAMMER ANALYST 08/28/2020 Last Documented On 1 3:27PM ; [facility] Mild recurrent major depression Medical Established Patient with Yohan Blanca PROFESSIONAL PROGRAMMER ANALYST 08/28/2020 Last Documented On 1 3:27PM ; [facility] Morbid obesity Medical Established Patient with Yohan Blanca PROFESSIONAL PROGRAMMER ANALYST 08/28/2020 Last Documented On 1 3:27PM ; [facility] Generalized anxiety disorder BH Establis hed Patient with Eufemia Short LISWS 07/25/2020 Last Documented On 1 1:33PM ; [facility] Mild recurrent major depression BH Estab lished Patient with Eufemia Short LISWS 07/25/2020 Last Documented On 1 1:33PM ; [facility] Body mass index Medical New Patient with Yohan Blanca PROFESSIONAL PROGRAMMER ANALYST 07/25/2020 Last Documented On 1 9:00AM ; [facility] Diabetes Risk Test Score was five score 07/25/2020 Medical New Patient with Yohan Blanca PROFESSIONAL PROGRAMMER ANALYST 07/25/2020 Last Documented On 1 9:00AM ; [facility] Morbid obesity Medical New Patient with Yohan James PROFESSIONAL PROGRAMMER ANALYST 07/25/2020 Last Documented On 1 9:00AM ; [facility] Work Phone: Evaluation note* Diagnosis Pain Generalized pain documented in this encounter [facility] note* Diagnosis Multiple lung nodules on CT documented in this encounter [facility] note* Diagnosis Obesity, morbid, BMI 40.0-49.9 ([facility])- [facility] Diagnosis Encounter for medical examination to establish care- Primary Healthcare maintenance [facility] Diagnosis Obesity, morbid, BMI 40.0-49.9 ([facility])- Primary [facility] Diagnosis Chronic generalized pain- Primary [facility] Diagnosis Fibromyalgia- Primary Unspecified myalgia and myositis Encounter for medication counseling Chronic generalized pain [facility] - Reported Includes: Medical History in patient's chart Description Last Updated No previous suicide attempt 12/26/2022 Last Documented On 3 12:25PM ; [facility] Not planning to have a baby in the next 12 months 07/30/2022 Last Documented On 3 7:50AM ; [facility] No previous hospitalizations 08/12/2021 Last Documented On 2 1:16PM ; [facility] Recent immunization for flu 08/05/2021 Last Documented On 2 7:47PM ; [facility] History of gynecologic disorder PCOS, en dometriosis 07/25/2020 Last Documented On 1 9:00AM ; [facility] Work Phone: History general Narrative - Reported Includes: Medical History in patient's chart Description Last Updated No previous suicide attempt 12/26/2022 Last Documented On 3 12:25PM ; [facility] Not planning to have a baby in the next 12 months 07/30/2022 Last Documented On 3 7:50AM ; [facility] No previous hospitalizations 08/12/2021 Last Documented On 2 1:16PM ; [facility] Recent immunization for flu 08/05/2021 Last Documented On 2 7:47PM ; [facility] History of gynecologic disorder PCOS, en dometriosis 07/25/2020 Last Documented On 1 9:00AM ; [facility] Work Phone: History of Present illness Narrative History of Present Illness not supported for this document type No [facility] of [facility]: Hospital Discharge instructions* Instructions* Shayan Reyes MD - 01/11/2021 Please take all medications as prescribed. Please follow up with your primary care physician by calling today, or as soon as possible, for thefirst available appointment. If you do not have a primary care physician, please contact a physician or clinic listed below today to establish care. Please return to the emergency department IMMEDIATELY if you develop uncontrolled fevers, uncontrolled vomiting, change in symptoms, worsening of symptoms, or ANY other concerns. * Attachments The following attachments cannot be sent through Care Everywhere. * Abdominal Pain (Ugandan) documented in this [facility] Work Phone: Hospital Discharge instructions* Instructions* Leonard Randall MD - 01/23/2021 SAME DAY SURGERY INSTRUCTIONS 1. Do not drive or operate hazardous machinery. 2. Do not make important personal or business decisions for 24 hours. 3. Do not drink alcoholic beverages. 4. Do not smoke tobacco products. 5. Eat light foods initially (i.e., Jell-O, soups, etc) and drink plenty of fluids. 6. If your bandages become soaked with a bright red blood, place another dressing pad over your bandages. (Do not remove original bandage.) Call your surgeon for further instructions. A small amount of bright red blood is to be expected. 7. Limit your activities for 48 hours. Do not engage in heavy work until your surgeon gives you permission. 8. Report the following signs or any questions regarding your physical condition to your surgeon immediately: Excessive swelling of, or around, the wound area Redness Temperature of 101 (degrees F) or above Excessive pain 9. Call your surgeon, , for any questions regarding your surgery. Call [phone] forurgent questions after 5PM until 8AM 10. Call for an appointment to see your surgeon in 2 weeks. SPECIAL INSTRUCTIONS AND MEDICATIONS 1. No firm gripping, pushing, pulling, lifting more than several pounds for at least 2 weeks. 2. Move fingers and wrist to improve circulation. Work on restoring full finger range of motion. Atyour 2 week follow up appointment you should be able to make a complete fist. 3. Use prescribed pain pill as directed by the doctor. You may use aspirin or Tylenol if you prefer. 4. Keep your dressing on an dry unless instructed differently by your physician. 5. Use ice as instructed. 6. Remove operative bandages: 01/25. Place a band aid over incision or cover with new gauze and cathy wrap 7. Keep incisions/dressings dry. If they happen to get wet remove wet dressing and place a new dry dressing. Leonard Randall MD 01/23/2021 8:27 AM documented in this [facility] Phone: Hospital Discharge instructions* Attachments The following attachments cannot be sent through Care Everywhere. * Back: Strain (Ugandan) documented in this [facility] Phone: Hospital Discharge instructions* Instructions* Michelle Elder MD - 08/04/2021 Thank you for trusting us with your care today. You may use tylenol or ibuprofen for fever and pain. Please also make sure to increase stimulation and electronic exposure. Please make an appointment with your primary care doctor for reevalaution in 1-4 days. Please return to the emergency department for any new concerning or worsening symptoms. * Attachments The following attachments cannot be sent through Care Everywhere. * Acute Concussion (Ugandan) * Head Injury: Closed: General Info (Ugandan) [facility]: [facility] Discharge instructions* Instructions* Azael Cisneros MD - 11/12/2021 Please continue to ice for at least the next 48 hours 20 minutes 4 times a day. Use 600 mg of ibuprofen +500 mg of Tylenol every 6 hours as needed for pain. * Attachments The following attachments cannot be sent through Care Everywhere. * Musculoskeletal Pain (Ugandan) [facility] Phone: Hospital Discharge instructions* Attachments The following attachments cannot be sent through Care Everywhere. * URI (Upper Respiratory Infection): Viral (Ugandan) * Nausea and Vomiting (Ugandan) [facility] Phone: Hospital Discharge instructions* Attachments The following attachments cannot be sent through Care Everywhere. * Pleurisy (Ugandan) [facility] Instructions not supported for this document type No [facility] Work Phone: Instructions Includes: Instructions for all patient encounters Education and Decision Aids were provided during visit for: Discussed nutritional needs teach healthy choices including fruits and vegetables Last Documented On 3 1:54PM ; [facility] Patient education about a pr oper diet Last Documented On 3 1:54PM ; [facility] Discussed concerns about exe rcise : promote physical activity ~ ~Follow up in 4- 6 weeks Last Documented On 3 2:30PM ; [facility] Discussed nutritional needs teach healthy choices including fruits and vegetables Last Documented On 3 2:49PM ; [facility] Patient education about a pr oper diet Last Documented On 3 2:49PM ; [facility] Patient education about an a sthma action plan Last Documented On 3 3:43PM ; [facility] Discussed concerns about exe rcise : promote physical activity ~ ~Due severity of current symptoms will try ipratropium-albuterol with nebulizer ~ ~Will give patient a steriod to take if breathing gets any worse ~ ~Call office or go to ER if breathing gets worse ~ ~Pumonologist appt on 08/14 ~ Last Documented On 3 4:09PM ; [facility] BH provided active listening ; encouraged, explored, and supported the pt as she processed current stressor(s) impacting mood and functioning. ~Discussed and supported personal health goals. ~Explored coping mechanisms and support system; encouraged use, when needed Last Documented On 2 9:03AM ; [facility] Discussed nutritional needs teach healthy choices including fruits and vegetables Last Documented On 2 5:07PM ; [facility] Patient education about a pr oper diet Last Documented On 2 5:07PM ; [facility] Discussed concerns about exe rcise : promote physical activity ~ ~Will write for work restrictions ~ ~Continue to follow up with specialist Last Documented On 2 5:57PM ; [facility] Discussed current self-care methods/coping skills. ~Validated and normalized pt?s feelings while assisting patient process recent events. ~Discussed ongoing counseling. ~Discussed lifestyle changes to address chronic illness. nephew ~Supported patient's personal health goals ~ ~different music, dropped a lot of old friend, made new ones and support each other ~ ~better mood, less SI Last Documented On 2 6:00PM ; [facility] Discussed nutritional needs teach healthy choices including fruits and vegetables Last Documented On 2 4:56PM ; [facility] Patient education about a pr oper diet Last Documented On 2 4:56PM ; [facility] Inquiry and counseling about medication administration and compliance Last Documented On 2 5:55PM ; [facility] Discussed concerns about exe rcise : promote physical activity Last Documented On 2 4:56PM ; [facility] Patient goals discussed Last Documented On 2 5:55PM ; [facility] Discussed current self-care methods/coping skills. ~Validated and normalized patient's feelings while assisting process recent events. ~Discussed lifestyle changes to address chronic illness. ~Supported patient's personal health goals Last Documented On 2 9:29PM ; [facility] Discussed nutritional needs teach healthy choices including fruits and vegetables Last Documented On 2 10:54AM ; [facility] Patient education about a pr oper diet Last Documented On 2 10:54AM ; [facility] Discussed concerns about exe rcise : promote physical activity Last Documented On 2 10:54AM ; [facility] Discussed current self-care methods/coping skills. ~Validated and normalized patient's feelings while assisting process recent events. ~Discussed lifestyle changes to address chronic illness. ~Supported patient's personal health goals Last Documented On 2 2:41PM ; [facility] Discussed nutritional needs teach healthy choices including fruits and vegetables Last Documented On 2 11:38AM ; [facility] Patient education about a pr oper diet Last Documented On 2 11:38AM ; [facility] Inquiry and counseling about medication administration and compliance Last Documented On 2 7:32PM ; [facility] Discussed concerns about exe rcise : promote physical activity Last Documented On 2 11:38AM ; [facility] Patient goals discussed Last Documented On 2 7:32PM ; [facility] Discussed nutritional needs teach healthy choices including fruits and vegetables Last Documented On 1 3:56PM ; [facility] Patient education about a pr oper diet Last Documented On 1 3:56PM ; [facility] Inquiry and counseling about medication administration and compliance Last Documented On 1 4:30PM ; [facility] Discussed concerns about exe rcise : promote physical activity Last Documented On 1 3:56PM ; [facility] Patient goals discussed Last Documented On 1 4:30PM ; [facility] Discussed current self-care methods/coping skills; ~Discussed EMDR and encouraged engament in counseling and psychiatric care.. ~Provided local resources including hotline number if needed Last Documented On 1 1:03AM ; [facility] Discussed nutritional needs teach healthy choices including fruits and vegetables Last Documented On 1 3:31PM ; [facility] Patient education about a pr oper diet Last Documented On 1 3:31PM ; [facility] Discussed concerns about exe rcise : promote physical activity Last Documented On 1 3:31PM ; [facility] Discussed nutritional needs teach healthy choices including fruits and vegetables Last Documented On 1 3:31PM ; [facility] Patient education about a pr oper diet Last Documented On 1 3:31PM ; [facility] Discussed concerns about exe rcise : promote physical activity Last Documented On 1 3:31PM ; [facility] provided active listenin g, support and helped patient process through current symptoms and stressors related to physical health concerns as well as mood and anxiety. ~P reminded patient of importance of developing coping skills and supports. ~[facility] discussed considering online counseling resources Last Documented On 1 2:22PM ; [facility] Discussed nutritional needs teach healthy choices including fruits and vegetables Last Documented On 1 1:51PM ; [facility] Patient education about a pr oper diet Last Documented On 1 1:51PM ; [facility] Discussed concerns about exe rcise : promote physical activity Last Documented On 1 1:51PM ; [facility] integrated model of care. ~P offered active and supportive listening, normalized emotions and feelings, processed current stressors and explored coping and stress reducing skills. ~[facility] discussed importanced of coping skills and postive supports. [facility] discussed coping skills such as breathing and mindfulness and handouts on how to implement them. [facility] discussed importance of counseling and provided list of resources in the area for patient to establish care Last Documented On 1 1:33PM ; [facility] Discussed nutritional needs teach healthy choices including fruits and vegetables Last Documented On 1 2:38PM ; [facility] Patient education about a pr oper diet Last Documented On 1 2:38PM ; [facility] Inquiry and counseling about medication administration and compliance Last Documented On 1 8:18AM ; [facility] Discussed concerns about exe rcise : promote physical activity Last Documented On 1 2:38PM ; [facility] Patient goals discussed Last Documented On 1 8:18AM ; [facility] Work Phone: Instructions Includes: Instructions for all patient encounters Education and Decision Aids were provided during visit for: Discussed nutritional needs teach healthy choices including fruits and vegetables Last Documented On 3 2:39PM ; [facility] Patient education about a pr oper diet Last Documented On 3 2:39PM ; [facility] Discussed concerns about exe rcise : promote physical activity ~ ~Will send to cardiology for heart palpitations ~ ~Follow up for mood in 6 months Last Documented On 3 3:28PM ; [facility] Discussed nutritional needs teach healthy choices including fruits and vegetables Last Documented On 3 1:54PM ; [facility] Patient education about a pr oper diet Last Documented On 3 1:54PM ; [facility] Discussed concerns about exe rcise : promote physical activity ~ ~Follow up in 4- 6 weeks Last Documented On 3 2:30PM ; [facility] Discussed nutritional needs teach healthy choices including fruits and vegetables Last Documented On 3 2:49PM ; [facility] Patient education about a pr oper diet Last Documented On 3 2:49PM ; [facility] Patient education about an a sthma action plan Last Documented On 3 3:43PM ; [facility] Discussed concerns about exe rcise : promote physical activity ~ ~Due severity of current symptoms will try ipratropium-albuterol with nebulizer ~ ~Will give patient a steriod to take if breathing gets any worse ~ ~Call office or go to ER if breathing gets worse ~ ~Pumonologist appt on 08/14 ~ Last Documented On 3 4:09PM ; [facility] provided active listening ; encouraged, explored, and supported the pt as she processed current stressor(s) impacting mood and functioning. ~Discussed and supported personal health goals. ~Explored coping mechanisms and support system; encouraged use, when needed Last Documented On 2 9:03AM ; [facility] Discussed nutritional needs teach healthy choices including fruits and vegetables Last Documented On 2 5:07PM ; [facility] Patient education about a pr oper diet Last Documented On 2 5:07PM ; [facility] Discussed concerns about exe rcise : promote physical activity ~ ~Will write for work restrictions ~ ~Continue to follow up with specialist Last Documented On 2 5:57PM ; [facility] Discussed current self-care methods/coping skills. ~Validated and normalized pt?s feelings while assisting patient process recent events. ~Discussed ongoing counseling. ~Discussed lifestyle changes to address chronic illness. nephew ~Supported patient's personal health goals ~ ~different music, dropped a lot of old friend, made new ones and support each other ~ ~better mood, less SI Last Documented On 2 6:00PM ; [facility] Discussed nutritional needs teach healthy choices including fruits and vegetables Last Documented On 2 4:56PM ; [facility] Patient education about a pr oper diet Last Documented On 2 4:56PM ; [facility] Inquiry and counseling about medication administration and compliance Last Documented On 2 5:55PM ; [facility] Discussed concerns about exe rcise : promote physical activity Last Documented On 2 4:56PM ; [facility] Patient goals discussed Last Documented On 2 5:55PM ; [facility] Discussed current self-care methods/coping skills. ~Validated and normalized patient's feelings while assisting process recent events. ~Discussed lifestyle changes to address chronic illness. ~Supported patient's personal health goals Last Documented On 2 9:29PM ; [facility] Discussed nutritional needs teach healthy choices including fruits and vegetables Last Documented On 2 10:54AM ; [facility] Patient education about a pr oper diet Last Documented On 2 10:54AM ; [facility] Discussed concerns about exe rcise : promote physical activity Last Documented On 2 10:54AM ; [facility] Discussed current self-care methods/coping skills. ~Validated and normalized patient's feelings while assisting process recent events. ~Discussed lifestyle changes to address chronic illness. ~Supported patient's personal health goals Last Documented On 2 2:41PM ; [facility] Discussed nutritional needs teach healthy choices including fruits and vegetables Last Documented On 2 11:38AM ; [facility] Patient education about a pr oper diet Last Documented On 2 11:38AM ; [facility] Inquiry and counseling about medication administration and compliance Last Documented On 2 7:32PM ; [facility] Discussed concerns about exe rcise : promote physical activity Last Documented On 2 11:38AM ; [facility] Patient goals discussed Last Documented On 2 7:32PM ; [facility] Discussed nutritional needs teach healthy choices including fruits and vegetables Last Documented On 1 3:56PM ; [facility] Patient education about a pr oper diet Last Documented On 1 3:56PM ; [facility] Inquiry and counseling about medication administration and compliance Last Documented On 1 4:30PM ; [facility] Discussed concerns about exe rcise : promote physical activity Last Documented On 1 3:56PM ; [facility] Patient goals discussed Last Documented On 1 4:30PM ; [facility] Discussed current self-care methods/coping skills; ~Discussed EMDR and encouraged engament in counseling and psychiatric care.. ~Provided local resources including hotline number if needed Last Documented On 1 1:03AM ; [facility] Discussed nutritional needs teach healthy choices including fruits and vegetables Last Documented On 1 3:31PM ; [facility] Patient education about a pr oper diet Last Documented On 1 3:31PM ; [facility] Discussed concerns about exe rcise : promote physical activity Last Documented On 1 3:31PM ; [facility] Discussed nutritional needs teach healthy choices including fruits and vegetables Last Documented On 1 3:31PM ; [facility] Patient education about a pr oper diet Last Documented On 1 3:31PM ; [facility] Discussed concerns about exe rcise : promote physical activity Last Documented On 1 3:31PM ; [facility] provided active listenin g, support and helped patient process through current symptoms and stressors related to physical health concerns as well as mood and anxiety. ~P reminded patient of importance of developing coping skills and supports. ~[facility] discussed considering online counseling resources Last Documented On 1 2:22PM ; [facility] Discussed nutritional needs teach healthy choices including fruits and vegetables Last Documented On 1 1:51PM ; [facility] Patient education about a pr oper diet Last Documented On 1 1:51PM ; [facility] Discussed concerns about exe rcise : promote physical activity Last Documented On 1 1:51PM ; [facility] integrated model of care. ~[facility] offered active and supportive listening, normalized emotions and feelings, processed current stressors and explored coping and stress reducing skills. ~[facility] discussed importanced of coping skills and postive supports. [facility] discussed coping skills such as breathing and mindfulness and handouts on how to implement them. [facility] discussed importance of counseling and provided list of resources in the area for patient to establish care Last Documented On 1 1:33PM ; [facility] Discussed nutritional needs teach healthy choices including fruits and vegetables Last Documented On 1 2:38PM ; [facility] Patient education about a pr oper diet Last Documented On 1 2:38PM ; [facility] Inquiry and counseling about medication administration and compliance Last Documented On 1 8:18AM ; [facility] Discussed concerns about exe rcise : promote physical activity Last Documented On 1 2:38PM ; [facility] Patient goals discussed Last Documented On 1 8:18AM ; [facility] Work Phone: Instructions Includes: Instructions for all patient encounters Education and Decision Aids were provided during visit for: Discussed nutritional needs teach healthy choices including fruits and vegetables Last Documented On 3 11:59AM ; [facility] Patient education about a pr oper diet Last Documented On 3 11:59AM ; [facility] Discussed concerns about exe rcise : promote physical activity Last Documented On 3 11:59AM ; [facility] provided supportive list ening and reflective feedback; provided pt space to share any concerns or problems impacting daily living. ~Acknowledged and normalized emotions. ~Promoted benefits of maintaining medication compliance, use healthy coping methods, and seek support, as needed Last Documented On 3 4:15PM ; [facility] Discussed nutritional needs teach healthy choices including fruits and vegetables Last Documented On 3 2:39PM ; [facility] Patient education about a pr oper diet Last Documented On 3 2:39PM ; [facility] Discussed concerns about exe rcise : promote physical activity ~ ~Will send to cardiology for heart palpitations ~ ~Follow up for mood in 6 months Last Documented On 3 3:28PM ; [facility] Discussed nutritional needs teach healthy choices including fruits and vegetables Last Documented On 3 1:54PM ; [facility] Patient education about a pr oper diet Last Documented On 3 1:54PM ; [facility] Discussed concerns about exe rcise : promote physical activity ~ ~Follow up in 4- 6 weeks Last Documented On 3 2:30PM ; [facility] Discussed nutritional needs teach healthy choices including fruits and vegetables Last Documented On 3 2:49PM ; [facility] Patient education about a pr oper diet Last Documented On 3 2:49PM ; [facility] Patient education about an a sthma action plan Last Documented On 3 3:43PM ; [facility] Discussed concerns about exe rcise : promote physical activity ~ ~Due severity of current symptoms will try ipratropium-albuterol with nebulizer ~ ~Will give patient a steriod to take if breathing gets any worse ~ ~Call office or go to ER if breathing gets worse ~ ~Pumonologist appt on 08/14 ~ Last Documented On 3 4:09PM ; [facility] provided active listening ; encouraged, explored, and supported the pt as she processed current stressor(s) impacting mood and functioning. ~Discussed and supported personal health goals. ~Explored coping mechanisms and support system; encouraged use, when needed Last Documented On 2 9:03AM ; [facility] Discussed nutritional needs teach healthy choices including fruits and vegetables Last Documented On 2 5:07PM ; [facility] Patient education about a pr oper diet Last Documented On 2 5:07PM ; [facility] Discussed concerns about exe rcise : promote physical activity ~ ~Will write for work restrictions ~ ~Continue to follow up with specialist Last Documented On 2 5:57PM ; [facility] Discussed current self-care methods/coping skills. ~Validated and normalized pt?s feelings while assisting patient process recent events. ~Discussed ongoing counseling. ~Discussed lifestyle changes to address chronic illness. nephew ~Supported patient's personal health goals ~ ~different music, dropped a lot of old friend, made new ones and support each other ~ ~better mood, less SI Last Documented On 2 6:00PM ; [facility] Discussed nutritional needs teach healthy choices including fruits and vegetables Last Documented On 2 4:56PM ; [facility] Patient education about a pr oper diet Last Documented On 2 4:56PM ; [facility] Inquiry and counseling about medication administration and compliance Last Documented On 2 5:55PM ; [facility] Discussed concerns about exe rcise : promote physical activity Last Documented On 2 4:56PM ; [facility] Patient goals discussed Last Documented On 2 5:55PM ; [facility] Discussed current self-care methods/coping skills. ~Validated and normalized patient's feelings while assisting process recent events. ~Discussed lifestyle changes to address chronic illness. ~Supported patient's personal health goals Last Documented On 2 9:29PM ; [facility] Discussed nutritional needs teach healthy choices including fruits and vegetables Last Documented On 2 10:54AM ; [facility] Patient education about a pr oper diet Last Documented On 2 10:54AM ; [facility] Discussed concerns about exe rcise : promote physical activity Last Documented On 2 10:54AM ; [facility] Discussed current self-care methods/coping skills. ~Validated and normalized patient's feelings while assisting process recent events. ~Discussed lifestyle changes to address chronic illness. ~Supported patient's personal health goals Last Documented On 2 2:41PM ; [facility] Discussed nutritional needs teach healthy choices including fruits and vegetables Last Documented On 2 11:38AM ; [facility] Patient education about a pr oper diet Last Documented On 2 11:38AM ; [facility] Inquiry and counseling about medication administration and compliance Last Documented On 2 7:32PM ; [facility] Discussed concerns about exe rcise : promote physical activity Last Documented On 2 11:38AM ; [facility] Patient goals discussed Last Documented On 2 7:32PM ; [facility] Discussed nutritional needs teach healthy choices including fruits and vegetables Last Documented On 1 3:56PM ; [facility] Patient education about a pr oper diet Last Documented On 1 3:56PM ; [facility] Inquiry and counseling about medication administration and compliance Last Documented On 1 4:30PM ; [facility] Discussed concerns about exe rcise : promote physical activity Last Documented On 1 3:56PM ; [facility] Patient goals discussed Last Documented On 1 4:30PM ; [facility] Discussed current self-care methods/coping skills; ~Discussed EMDR and encouraged engament in counseling and psychiatric care.. ~Provided local resources including hotline number if needed Last Documented On 1 1:03AM ; [facility] Discussed nutritional needs teach healthy choices including fruits and vegetables Last Documented On 1 3:31PM ; [facility] Patient education about a pr oper diet Last Documented On 1 3:31PM ; [facility] Discussed concerns about exe rcise : promote physical activity Last Documented On 1 3:31PM ; [facility] Discussed nutritional needs teach healthy choices including fruits and vegetables Last Documented On 1 3:31PM ; [facility] Patient education about a pr oper diet Last Documented On 1 3:31PM ; [facility] Discussed concerns about exe rcise : promote physical activity Last Documented On 1 3:31PM ; [facility] provided active listenin g, support and helped patient process through current symptoms and stressors related to physical health concerns as well as mood and anxiety. ~P reminded patient of importance of developing coping skills and supports. ~[facility] discussed considering online counseling resources Last Documented On 1 2:22PM ; [facility] Discussed nutritional needs teach healthy choices including fruits and vegetables Last Documented On 1 1:51PM ; [facility] Patient education about a pr oper diet Last Documented On 1 1:51PM ; [facility] Discussed concerns about exe rcise : promote physical activity Last Documented On 1 1:51PM ; [facility] model of [facility]. ~P offered active and supportive listening, normalized emotions and feelings, processed current stressors and explored coping and stress reducing skills. ~[facility] discussed importanced of coping skills and postive supports. P discussed coping skills such as breathing and mindfulness and handouts on how to implement them. [facility] discussed importance of counseling and provided list of resources in the area for patient to establish care Last Documented On 1 1:33PM ; [facility] Discussed nutritional needs teach healthy choices including fruits and vegetables Last Documented On 1 2:38PM ; [facility] Patient education about a pr oper diet Last Documented On 1 2:38PM ; [facility] Inquiry and counseling about medication administration and compliance Last Documented On 1 8:18AM ; [facility] Discussed concerns about exe rcise : promote physical activity Last Documented On 1 2:38PM ; [facility] Patient goals discussed Last Documented On 1 8:18AM ; [facility] Work Phone: Instructions Includes: Instructions for all patient encounters Education and Decision Aids were provided during visit for: Discussed nutritional needs teach healthy choices including fruits and vegetables Last Documented On 3 11:59AM ; [facility] Patient education about a pr oper diet Last Documented On 3 11:59AM ; [facility] Discussed concerns about exe rcise : promote physical activitya ~ ~Follow up after hysterectomy if mental health declines Last Documented On 3 12:59PM ; [facility] provided supportive list ening and reflective feedback; provided pt space to share any concerns or problems impacting daily living. ~Acknowledged and normalized emotions. ~Promoted benefits of maintaining medication compliance, use healthy coping methods, and seek support, as needed Last Documented On 3 4:15PM ; [facility] Discussed nutritional needs teach healthy choices including fruits and vegetables Last Documented On 3 2:39PM ; [facility] Patient education about a pr oper diet Last Documented On 3 2:39PM ; [facility] Discussed concerns about exe rcise : promote physical activity ~ ~Will send to cardiology for heart palpitations ~ ~Follow up for mood in 6 months Last Documented On 3 3:28PM ; [facility] Discussed nutritional needs teach healthy choices including fruits and vegetables Last Documented On 3 1:54PM ; [facility] Patient education about a pr oper diet Last Documented On 3 1:54PM ; [facility] Discussed concerns about exe rcise : promote physical activity ~ ~Follow up in 4- 6 weeks Last Documented On 3 2:30PM ; [facility] Discussed nutritional needs teach healthy choices including fruits and vegetables Last Documented On 3 2:49PM ; [facility] Patient education about a pr oper diet Last Documented On 3 2:49PM ; [facility] Patient education about an a sthma action plan Last Documented On 3 3:43PM ; [facility] Discussed concerns about exe rcise : promote physical activity ~ ~Due severity of current symptoms will try ipratropium-albuterol with nebulizer ~ ~Will give patient a steriod to take if breathing gets any worse ~ ~Call office or go to ER if breathing gets worse ~ ~Pumonologist appt on 08/14 ~ Last Documented On 3 4:09PM ; [facility] provided active listening ; encouraged, explored, and supported the pt as she processed current stressor(s) impacting mood and functioning. ~Discussed and supported personal health goals. ~Explored coping mechanisms and support system; encouraged use, when needed Last Documented On 2 9:03AM ; [facility] Discussed nutritional needs teach healthy choices including fruits and vegetables Last Documented On 2 5:07PM ; [facility] Patient education about a pr oper diet Last Documented On 2 5:07PM ; [facility] Discussed concerns about exe rcise : promote physical activity ~ ~Will write for work restrictions ~ ~Continue to follow up with specialist Last Documented On 2 5:57PM ; [facility] Discussed current self-care methods/coping skills. ~Validated and normalized pt?s feelings while assisting patient process recent events. ~Discussed ongoing counseling. ~Discussed lifestyle changes to address chronic illness. nephew ~Supported patient's personal health goals ~ ~different music, dropped a lot of old friend, made new ones and support each other ~ ~better mood, less SI Last Documented On 2 6:00PM ; [facility] Discussed nutritional needs teach healthy choices including fruits and vegetables Last Documented On 2 4:56PM ; [facility] Patient education about a pr oper diet Last Documented On 2 4:56PM ; [facility] Inquiry and counseling about medication administration and compliance Last Documented On 2 5:55PM ; [facility] Discussed concerns about exe rcise : promote physical activity Last Documented On 2 4:56PM ; [facility] Patient goals discussed Last Documented On 2 5:55PM ; [facility] Discussed current self-care methods/coping skills. ~Validated and normalized patient's feelings while assisting process recent events. ~Discussed lifestyle changes to address chronic illness. ~Supported patient's personal health goals Last Documented On 2 9:29PM ; [facility] Discussed nutritional needs teach healthy choices including fruits and vegetables Last Documented On 2 10:54AM ; [facility] Patient education about a pr oper diet Last Documented On 2 10:54AM ; [facility] Discussed concerns about exe rcise : promote physical activity Last Documented On 2 10:54AM ; [facility] Discussed current self-care methods/coping skills. ~Validated and normalized patient's feelings while assisting process recent events. ~Discussed lifestyle changes to address chronic illness. ~Supported patient's personal health goals Last Documented On 2 2:41PM ; [facility] Discussed nutritional needs teach healthy choices including fruits and vegetables Last Documented On 2 11:38AM ; [facility] Patient education about a pr oper diet Last Documented On 2 11:38AM ; [facility] Inquiry and counseling about medication administration and compliance Last Documented On 2 7:32PM ; [facility] Discussed concerns about exe rcise : promote physical activity Last Documented On 2 11:38AM ; [facility] Patient goals discussed Last Documented On 2 7:32PM ; [facility] Discussed nutritional needs teach healthy choices including fruits and vegetables Last Documented On 1 3:56PM ; [facility] Patient education about a pr oper diet Last Documented On 1 3:56PM ; [facility] Inquiry and counseling about medication administration and compliance Last Documented On 1 4:30PM ; [facility] Discussed concerns about exe rcise : promote physical activity Last Documented On 1 3:56PM ; [facility] Patient goals discussed Last Documented On 1 4:30PM ; [facility] Discussed current self-care methods/coping skills; ~Discussed EMDR and encouraged engament in counseling and psychiatric care.. ~Provided local resources including hotline number if needed Last Documented On 1 1:03AM ; [facility] Discussed nutritional needs teach healthy choices including fruits and vegetables Last Documented On 1 3:31PM ; [facility] Patient education about a pr oper diet Last Documented On 1 3:31PM ; [facility] Discussed concerns about exe rcise : promote physical activity Last Documented On 1 3:31PM ; [facility] Discussed nutritional needs teach healthy choices including fruits and vegetables Last Documented On 1 3:31PM ; [facility] Patient education about a pr oper diet Last Documented On 1 3:31PM ; [facility] Discussed concerns about exe rcise : promote physical activity Last Documented On 1 3:31PM ; [facility] provided active listenin g, support and helped patient process through current symptoms and stressors related to physical health concerns as well as mood and anxiety. ~P reminded patient of importance of developing coping skills and supports. ~[facility] discussed considering online counseling resources Last Documented On 1 2:22PM ; [facility] Discussed nutritional needs teach healthy choices including fruits and vegetables Last Documented On 1 1:51PM ; [facility] Patient education about a pr oper diet Last Documented On 1 1:51PM ; [facility] Discussed concerns about exe rcise : promote physical activity Last Documented On 1 1:51PM ; [facility] integrated model of care. ~P offered active and supportive listening, normalized emotions and feelings, processed current stressors and explored coping and stress reducing skills. ~[facility] discussed importanced of coping skills and postive supports. [facility] discussed coping skills such as breathing and mindfulness and handouts on how to implement them. [facility] discussed importance of counseling and provided list of resources in the area for patient to establish care Last Documented On 1 1:33PM ; [facility] Discussed nutritional needs teach healthy choices including fruits and vegetables Last Documented On 1 2:38PM ; [facility] Patient education about a pr oper diet Last Documented On 1 2:38PM ; [facility] Inquiry and counseling about medication administration and compliance Last Documented On 1 8:18AM ; [facility] Discussed concerns about exe rcise : promote physical activity Last Documented On 1 2:38PM ; [facility] Patient goals discussed Last Documented On 1 8:18AM ; [facility] Work Phone: Instructions Includes: Instructions for all patient encounters Education and Decision Aids were provided during visit for: [facility] offered active and suppo rtive listening and normalized emotions and feelings related to new job. ~P discussed coping skills and stress management techniques to implement. ~[facility] encouraged patient to implement helathy lifestyle changes in addition to medications Last Documented On 3 5:22PM ; [facility] Discussed nutritional needs teach healthy choices including fruits and vegetables Last Documented On 3 4:24PM ; [facility] Patient education about a pr oper diet Last Documented On 3 4:24PM ; [facility] Discussed concerns about exe rcise : promote physical activity Last Documented On 3 4:24PM ; [facility] Not requesting contraception Last Documented On 3 4:24PM ; [facility] Discussed nutritional needs teach healthy choices including fruits and vegetables Last Documented On 3 11:59AM ; [facility] Patient education about a pr oper diet Last Documented On 3 11:59AM ; [facility] Discussed concerns about exe rcise : promote physical activitya ~ ~Follow up after hysterectomy if mental health declines Last Documented On 3 12:59PM ; [facility] provided supportive list ening and reflective feedback; provided pt space to share any concerns or problems impacting daily living. ~Acknowledged and normalized emotions. ~Promoted benefits of maintaining medication compliance, use healthy coping methods, and seek support, as needed Last Documented On 3 4:15PM ; [facility] Discussed nutritional needs teach healthy choices including fruits and vegetables Last Documented On 3 2:39PM ; [facility] Patient education about a pr oper diet Last Documented On 3 2:39PM ; [facility] Discussed concerns about exe rcise : promote physical activity ~ ~Will send to cardiology for heart palpitations ~ ~Follow up for mood in 6 months Last Documented On 3 3:28PM ; [facility] Discussed nutritional needs teach healthy choices including fruits and vegetables Last Documented On 3 1:54PM ; [facility] Patient education about a pr oper diet Last Documented On 3 1:54PM ; [facility] Discussed concerns about exe rcise : promote physical activity ~ ~Follow up in 4- 6 weeks Last Documented On 3 2:30PM ; [facility] Discussed nutritional needs teach healthy choices including fruits and vegetables Last Documented On 3 2:49PM ; [facility] Patient education about a pr oper diet Last Documented On 3 2:49PM ; [facility] Patient education about an a sthma action plan Last Documented On 3 3:43PM ; [facility] Discussed concerns about exe rcise : promote physical activity ~ ~Due severity of current symptoms will try ipratropium-albuterol with nebulizer ~ ~Will give patient a steriod to take if breathing gets any worse ~ ~Call office or go to ER if breathing gets worse ~ ~Pumonologist appt on 08/14 ~ Last Documented On 3 4:09PM ; [facility] provided active listening ; encouraged, explored, and supported the pt as she processed current stressor(s) impacting mood and functioning. ~Discussed and supported personal health goals. ~Explored coping mechanisms and support system; encouraged use, when needed Last Documented On 2 9:03AM ; [facility] Discussed nutritional needs teach healthy choices including fruits and vegetables Last Documented On 2 5:07PM ; [facility] Patient education about a pr oper diet Last Documented On 2 5:07PM ; [facility] Discussed concerns about exe rcise : promote physical activity ~ ~Will write for work restrictions ~ ~Continue to follow up with specialist Last Documented On 2 5:57PM ; [facility] Discussed current self-care methods/coping skills. ~Validated and normalized pt?s feelings while assisting patient process recent events. ~Discussed ongoing counseling. ~Discussed lifestyle changes to address chronic illness. nephew ~Supported patient's personal health goals ~ ~different music, dropped a lot of old friend, made new ones and support each other ~ ~better mood, less SI Last Documented On 2 6:00PM ; [facility] Discussed nutritional needs teach healthy choices including fruits and vegetables Last Documented On 2 4:56PM ; [facility] Patient education about a pr oper diet Last Documented On 2 4:56PM ; [facility] Inquiry and counseling about medication administration and compliance Last Documented On 2 5:55PM ; [facility] Discussed concerns about exe rcise : promote physical activity Last Documented On 2 4:56PM ; [facility] Patient goals discussed Last Documented On 2 5:55PM ; [facility] Discussed current self-care methods/coping skills. ~Validated and normalized patient's feelings while assisting process recent events. ~Discussed lifestyle changes to address chronic illness. ~Supported patient's personal health goals Last Documented On 2 9:29PM ; [facility] Discussed nutritional needs teach healthy choices including fruits and vegetables Last Documented On 2 10:54AM ; [facility] Patient education about a pr oper diet Last Documented On 2 10:54AM ; [facility] Discussed concerns about exe rcise : promote physical activity Last Documented On 2 10:54AM ; [facility] Discussed current self-care methods/coping skills. ~Validated and normalized patient's feelings while assisting process recent events. ~Discussed lifestyle changes to address chronic illness. ~Supported patient's personal health goals Last Documented On 2 2:41PM ; [facility] Discussed nutritional needs teach healthy choices including fruits and vegetables Last Documented On 2 11:38AM ; [facility] Patient education about a pr oper diet Last Documented On 2 11:38AM ; [facility] Inquiry and counseling about medication administration and compliance Last Documented On 2 7:32PM ; [facility] Discussed concerns about exe rcise : promote physical activity Last Documented On 2 11:38AM ; [facility] Patient goals discussed Last Documented On 2 7:32PM ; [facility] Discussed nutritional needs teach healthy choices including fruits and vegetables Last Documented On 1 3:56PM ; [facility] Patient education about a pr oper diet Last Documented On 1 3:56PM ; [facility] Inquiry and counseling about medication administration and compliance Last Documented On 1 4:30PM ; [facility] Discussed concerns about exe rcise : promote physical activity Last Documented On 1 3:56PM ; [facility] Patient goals discussed Last Documented On 1 4:30PM ; [facility] Discussed current self-care methods/coping skills; ~Discussed EMDR and encouraged engament in counseling and psychiatric care.. ~Provided local resources including hotline number if needed Last Documented On 1 1:03AM ; [facility] Discussed nutritional needs teach healthy choices including fruits and vegetables Last Documented On 1 3:31PM ; [facility] Patient education about a pr oper diet Last Documented On 1 3:31PM ; [facility] Discussed concerns about exe rcise : promote physical activity Last Documented On 1 3:31PM ; [facility] Discussed nutritional needs teach healthy choices including fruits and vegetables Last Documented On 1 3:31PM ; [facility] Patient education about a pr oper diet Last Documented On 1 3:31PM ; [facility] Discussed concerns about exe rcise : promote physical activity Last Documented On 1 3:31PM ; [facility] provided active listenin g, support and helped patient process through current symptoms and stressors related to physical health concerns as well as mood and anxiety. ~[facility] reminded patient of importance of developing coping skills and supports. ~[facility] discussed considering online counseling resources Last Documented On 1 2:22PM ; [facility] Discussed nutritional needs teach healthy choices including fruits and vegetables Last Documented On 1 1:51PM ; [facility] Patient education about a pr oper diet Last Documented On 1 1:51PM ; [facility] Discussed concerns about exe rcise : promote physical activity Last Documented On 1 1:51PM ; [facility] model of care. ~P offered active and supportive listening, normalized emotions and feelings, processed current stressors and explored coping and stress reducing skills. ~P discussed importanced of coping skills and postive supports. [facility] discussed coping skills such as breathing and mindfulness and handouts on how to implement them. [facility] discussed importance of counseling and provided list of resources in the area for patient to establish care Last Documented On 1 1:33PM ; [facility] Discussed nutritional needs teach healthy choices including fruits and vegetables Last Documented On 1 2:38PM ; [facility] Patient education about a pr oper diet Last Documented On 1 2:38PM ; [facility] Inquiry and counseling about medication administration and compliance Last Documented On 1 8:18AM ; [facility] Discussed concerns about exe rcise : promote physical activity Last Documented On 1 2:38PM ; [facility] Patient goals discussed Last Documented On 1 8:18AM ; [facility] Work Phone: Instructions Includes: Instructions for all patient encounters Education and Decision Aids were provided during visit for: *[facility] offered active and supp ortive listening, normalized emotions and feelings, and processed ~current stressors. ~*Discussed healthy lifestyle behaviors Last Documented On 4 6:51PM ; [facility] offered active and suppo rtive listening and normalized emotions and feelings related to new job. ~P discussed coping skills and stress management techniques to implement. ~P encouraged patient to implement helathy lifestyle changes in addition to medications Last Documented On 3 5:22PM ; [facility] Discussed nutritional needs teach healthy choices including fruits and vegetables Last Documented On 3 4:24PM ; [facility] Patient education about a pr oper diet Last Documented On 3 4:24PM ; [facility] Discussed concerns about exe rcise : promote physical activity Last Documented On 3 4:24PM ; [facility] Not requesting contraception Last Documented On 3 4:24PM ; [facility] Discussed nutritional needs teach healthy choices including fruits and vegetables Last Documented On 3 11:59AM ; [facility] Patient education about a pr oper diet Last Documented On 3 11:59AM ; [facility] Discussed concerns about exe rcise : promote physical activitya ~ ~Follow up after hysterectomy if mental health declines Last Documented On 3 12:59PM ; [facility] provided supportive list ening and reflective feedback; provided pt space to share any concerns or problems impacting daily living. ~Acknowledged and normalized emotions. ~Promoted benefits of maintaining medication compliance, use healthy coping methods, and seek support, as needed Last Documented On 3 4:15PM ; [facility] Discussed nutritional needs teach healthy choices including fruits and vegetables Last Documented On 3 2:39PM ; [facility] Patient education about a pr oper diet Last Documented On 3 2:39PM ; [facility] Discussed concerns about exe rcise : promote physical activity ~ ~Will send to cardiology for heart palpitations ~ ~Follow up for mood in 6 months Last Documented On 3 3:28PM ; [facility] Discussed nutritional needs teach healthy choices including fruits and vegetables Last Documented On 3 1:54PM ; [facility] Patient education about a pr oper diet Last Documented On 3 1:54PM ; [facility] Discussed concerns about exe rcise : promote physical activity ~ ~Follow up in 4- 6 weeks Last Documented On 3 2:30PM ; [facility] Discussed nutritional needs teach healthy choices including fruits and vegetables Last Documented On 3 2:49PM ; [facility] Patient education about a pr oper diet Last Documented On 3 2:49PM ; [facility] Patient education about an a sthma action plan Last Documented On 3 3:43PM ; [facility] Discussed concerns about exe rcise : promote physical activity ~ ~Due severity of current symptoms will try ipratropium-albuterol with nebulizer ~ ~Will give patient a steriod to take if breathing gets any worse ~ ~Call office or go to ER if breathing gets worse ~ ~Pumonologist appt on 08/14 ~ Last Documented On 3 4:09PM ; [facility] provided active listening ; encouraged, explored, and supported the pt as she processed current stressor(s) impacting mood and functioning. ~Discussed and supported personal health goals. ~Explored coping mechanisms and support system; encouraged use, when needed Last Documented On 2 9:03AM ; [facility] Discussed nutritional needs teach healthy choices including fruits and vegetables Last Documented On 2 5:07PM ; [facility] Patient education about a pr oper diet Last Documented On 2 5:07PM ; [facility] Discussed concerns about exe rcise : promote physical activity ~ ~Will write for work restrictions ~ ~Continue to follow up with specialist Last Documented On 2 5:57PM ; [facility] Discussed current self-care methods/coping skills. ~Validated and normalized pt?s feelings while assisting patient process recent events. ~Discussed ongoing counseling. ~Discussed lifestyle changes to address chronic illness. nephew ~Supported patient's personal health goals ~ ~different music, dropped a lot of old friend, made new ones and support each other ~ ~better mood, less SI Last Documented On 2 6:00PM ; [facility] Discussed nutritional needs teach healthy choices including fruits and vegetables Last Documented On 2 4:56PM ; [facility] Patient education about a pr oper diet Last Documented On 2 4:56PM ; [facility] Inquiry and counseling about medication administration and compliance Last Documented On 2 5:55PM ; [facility] Discussed concerns about exe rcise : promote physical activity Last Documented On 2 4:56PM ; [facility] Patient goals discussed Last Documented On 2 5:55PM ; [facility] Discussed current self-care methods/coping skills. ~Validated and normalized patient's feelings while assisting process recent events. ~Discussed lifestyle changes to address chronic illness. ~Supported patient's personal health goals Last Documented On 2 9:29PM ; [facility] Discussed nutritional needs teach healthy choices including fruits and vegetables Last Documented On 2 10:54AM ; [facility] Patient education about a pr oper diet Last Documented On 2 10:54AM ; [facility] Discussed concerns about exe rcise : promote physical activity Last Documented On 2 10:54AM ; [facility] Discussed current self-care methods/coping skills. ~Validated and normalized patient's feelings while assisting process recent events. ~Discussed lifestyle changes to address chronic illness. ~Supported patient's personal health goals Last Documented On 2 2:41PM ; [facility] Discussed nutritional needs teach healthy choices including fruits and vegetables Last Documented On 2 11:38AM ; [facility] Patient education about a pr oper diet Last Documented On 2 11:38AM ; [facility] Inquiry and counseling about medication administration and compliance Last Documented On 2 7:32PM ; [facility] Discussed concerns about exe rcise : promote physical activity Last Documented On 2 11:38AM ; [facility] Patient goals discussed Last Documented On 2 7:32PM ; [facility] Discussed nutritional needs teach healthy choices including fruits and vegetables Last Documented On 1 3:56PM ; [facility] Patient education about a pr oper diet Last Documented On 1 3:56PM ; [facility] Inquiry and counseling about medication administration and compliance Last Documented On 1 4:30PM ; [facility] Discussed concerns about exe rcise : promote physical activity Last Documented On 1 3:56PM ; [facility] Patient goals discussed Last Documented On 1 4:30PM ; [facility] Discussed current self-care methods/coping skills; ~Discussed EMDR and encouraged engament in counseling and psychiatric care.. ~Provided local resources including hotline number if needed Last Documented On 1 1:03AM ; [facility] Discussed nutritional needs teach healthy choices including fruits and vegetables Last Documented On 1 3:31PM ; [facility] Patient education about a pr oper diet Last Documented On 1 3:31PM ; [facility] Discussed concerns about exe rcise : promote physical activity Last Documented On 1 3:31PM ; [facility] Discussed nutritional needs teach healthy choices including fruits and vegetables Last Documented On 1 3:31PM ; [facility] Patient education about a pr oper diet Last Documented On 1 3:31PM ; [facility] Discussed concerns about exe rcise : promote physical activity Last Documented On 1 3:31PM ; [facility] provided active listenin g, support and helped patient process through current symptoms and stressors related to physical health concerns as well as mood and anxiety. ~P reminded patient of importance of developing coping skills and supports. ~[facility] discussed considering online counseling resources Last Documented On 1 2:22PM ; [facility] Discussed nutritional needs teach healthy choices including fruits and vegetables Last Documented On 1 1:51PM ; [facility] Patient education about a pr oper diet Last Documented On 1 1:51PM ; [facility] Discussed concerns about exe rcise : promote physical activity Last Documented On 1 1:51PM ; [facility] introduced patient to [facility] integrated model of care. ~[facility] offered active and supportive listening, normalized emotions and feelings, processed current stressors and explored coping and stress reducing skills. ~[facility] discussed importanced of coping skills and postive supports. [facility] discussed coping skills such as breathing and mindfulness and handouts on how to implement them. [facility] discussed importance of counseling and provided list of resources in the area for patient to establish care Last Documented On 1 1:33PM ; [facility] Discussed nutritional needs teach healthy choices including fruits and vegetables Last Documented On 1 2:38PM ; [facility] Patient education about a pr oper diet Last Documented On 1 2:38PM ; [facility] Inquiry and counseling about medication administration and compliance Last Documented On 1 8:18AM ; [facility] Discussed concerns about exe rcise : promote physical activity Last Documented On 1 2:38PM ; [facility] Patient goals discussed Last Documented On 1 8:18AM ; [facility] Work Phone: Instructions Includes: Instructions for all patient encounters Education and Decision Aids were provided during visit for: Discussed nutritional needs teach healthy choices including fruits and vegetables Last Documented On 4 9:22AM ; [facility] Patient education about a pr oper diet Last Documented On 4 9:22AM ; [facility] Discussed concerns about exe rcise : promote physical activity ~ ~Follow up in 3 months Last Documented On 4 10:02AM ; [facility] Not requesting contraception Last Documented On 4 9:22AM ; [facility] *[facility] offered active and supp ortive listening, normalized emotions and feelings, and processed ~current stressors. ~*Discussed healthy lifestyle behaviors Last Documented On 4 6:51PM ; [facility] Discussed nutritional needs teach healthy choices including fruits and vegetables Last Documented On 4 6:53PM ; [facility] Patient education about a pr oper diet Last Documented On 4 6:53PM ; [facility] Discussed concerns about exe rcise : promote physical activity ~ ~Will try steriod to help with hip pain ~ ~Follow up with orthopedics ~ ~Follow up in one month for weight loss evaluation Last Documented On 4 10:48AM ; [facility] Not requesting contraception Last Documented On 4 6:55PM ; [facility] offered active and suppo rtive listening and normalized emotions and feelings related to new job. ~P discussed coping skills and stress management techniques to implement. ~P encouraged patient to implement helathy lifestyle changes in addition to medications Last Documented On 3 5:22PM ; [facility] Discussed nutritional needs teach healthy choices including fruits and vegetables Last Documented On 3 4:24PM ; [facility] Patient education about a pr oper diet Last Documented On 3 4:24PM ; [facility] Discussed concerns about exe rcise : promote physical activity Last Documented On 3 4:24PM ; [facility] Not requesting contraception Last Documented On 3 4:24PM ; [facility] Discussed nutritional needs teach healthy choices including fruits and vegetables Last Documented On 3 11:59AM ; [facility] Patient education about a pr oper diet Last Documented On 3 11:59AM ; [facility] Discussed concerns about exe rcise : promote physical activitya ~ ~Follow up after hysterectomy if mental health declines Last Documented On 3 12:59PM ; [facility] provided supportive list ening and reflective feedback; provided pt space to share any concerns or problems impacting daily living. ~Acknowledged and normalized emotions. ~Promoted benefits of maintaining medication compliance, use healthy coping methods, and seek support, as needed Last Documented On 3 4:15PM ; [facility] Discussed nutritional needs teach healthy choices including fruits and vegetables Last Documented On 3 2:39PM ; [facility] Patient education about a pr oper diet Last Documented On 3 2:39PM ; [facility] Discussed concerns about exe rcise : promote physical activity ~ ~Will send to cardiology for heart palpitations ~ ~Follow up for mood in 6 months Last Documented On 3 3:28PM ; [facility] Discussed nutritional needs teach healthy choices including fruits and vegetables Last Documented On 3 1:54PM ; [facility] Patient education about a pr oper diet Last Documented On 3 1:54PM ; [facility] Discussed concerns about exe rcise : promote physical activity ~ ~Follow up in 4- 6 weeks Last Documented On 3 2:30PM ; [facility] Discussed nutritional needs teach healthy choices including fruits and vegetables Last Documented On 3 2:49PM ; [facility] Patient education about a pr oper diet Last Documented On 3 2:49PM ; [facility] Patient education about an a sthma action plan Last Documented On 3 3:43PM ; [facility] Discussed concerns about exe rcise : promote physical activity ~ ~Due severity of current symptoms will try ipratropium-albuterol with nebulizer ~ ~Will give patient a steriod to take if breathing gets any worse ~ ~Call office or go to ER if breathing gets worse ~ ~Pumonologist appt on 08/14 ~ Last Documented On 3 4:09PM ; [facility] provided active listening ; encouraged, explored, and supported the pt as she processed current stressor(s) impacting mood and functioning. ~Discussed and supported personal health goals. ~Explored coping mechanisms and support system; encouraged use, when needed Last Documented On 2 9:03AM ; [facility] Discussed nutritional needs teach healthy choices including fruits and vegetables Last Documented On 2 5:07PM ; [facility] Patient education about a pr oper diet Last Documented On 2 5:07PM ; [facility] Discussed concerns about exe rcise : promote physical activity ~ ~Will write for work restrictions ~ ~Continue to follow up with specialist Last Documented On 2 5:57PM ; [facility] Discussed current self-care methods/coping skills. ~Validated and normalized pt?s feelings while assisting patient process recent events. ~Discussed ongoing counseling. ~Discussed lifestyle changes to address chronic illness. nephew ~Supported patient's personal health goals ~ ~different music, dropped a lot of old friend, made new ones and support each other ~ ~better mood, less SI Last Documented On 2 6:00PM ; [facility] Discussed nutritional needs teach healthy choices including fruits and vegetables Last Documented On 2 4:56PM ; [facility] Patient education about a pr oper diet Last Documented On 2 4:56PM ; [facility] Inquiry and counseling about medication administration and compliance Last Documented On 2 5:55PM ; [facility] Discussed concerns about exe rcise : promote physical activity Last Documented On 2 4:56PM ; [facility] Patient goals discussed Last Documented On 2 5:55PM ; [facility] Discussed current self-care methods/coping skills. ~Validated and normalized patient's feelings while assisting process recent events. ~Discussed lifestyle changes to address chronic illness. ~Supported patient's personal health goals Last Documented On 2 9:29PM ; [facility] Discussed nutritional needs teach healthy choices including fruits and vegetables Last Documented On 2 10:54AM ; [facility] Patient education about a pr oper diet Last Documented On 2 10:54AM ; [facility] Discussed concerns about exe rcise : promote physical activity Last Documented On 2 10:54AM ; [facility] Discussed current self-care methods/coping skills. ~Validated and normalized patient's feelings while assisting process recent events. ~Discussed lifestyle changes to address chronic illness. ~Supported patient's personal health goals Last Documented On 2 2:41PM ; [facility] Discussed nutritional needs teach healthy choices including fruits and vegetables Last Documented On 2 11:38AM ; [facility] Patient education about a pr oper diet Last Documented On 2 11:38AM ; [facility] Inquiry and counseling about medication administration and compliance Last Documented On 2 7:32PM ; [facility] Discussed concerns about exe rcise : promote physical activity Last Documented On 2 11:38AM ; [facility] Patient goals discussed Last Documented On 2 7:32PM ; [facility] Discussed nutritional needs teach healthy choices including fruits and vegetables Last Documented On 1 3:56PM ; [facility] Patient education about a pr oper diet Last Documented On 1 3:56PM ; [facility] Inquiry and counseling about medication administration and compliance Last Documented On 1 4:30PM ; [facility] Discussed concerns about exe rcise : promote physical activity Last Documented On 1 3:56PM ; [facility] Patient goals discussed Last Documented On 1 4:30PM ; [facility] Discussed current self-care methods/coping skills; ~Discussed EMDR and encouraged engament in counseling and psychiatric care.. ~Provided local resources including hotline number if needed Last Documented On 1 1:03AM ; [facility] Discussed nutritional needs teach healthy choices including fruits and vegetables Last Documented On 1 3:31PM ; [facility] Patient education about a pr oper diet Last Documented On 1 3:31PM ; [facility] Discussed concerns about exe rcise : promote physical activity Last Documented On 1 3:31PM ; [facility] Discussed nutritional needs teach healthy choices including fruits and vegetables Last Documented On 1 3:31PM ; [facility] Patient education about a pr oper diet Last Documented On 1 3:31PM ; [facility] Discussed concerns about exe rcise : promote physical activity Last Documented On 1 3:31PM ; [facility], support and helped patient process through current symptoms and stressors related to physical health concerns as well as mood and anxiety. ~[facility] reminded patient of importance of developing coping skills and supports. ~[facility] discussed considering online counseling resources Last Documented On 1 2:22PM ; [facility] Discussed nutritional needs teach healthy choices including fruits and vegetables Last Documented On 1 1:51PM ; [facility] Patient education about a pr oper diet Last Documented On 1 1:51PM ; [facility] Discussed concerns about exe rcise : promote physical activity Last Documented On 1 1:51PM ; [facility] integrated model of care. ~P offered active and supportive listening, normalized emotions and feelings, processed current stressors and explored coping and stress reducing skills. ~P discussed importanced of coping skills and postive supports. [facility] discussed coping skills such as breathing and mindfulness and handouts on how to implement them. [facility] discussed importance of counseling and provided list of resources in the area for patient to establish care Last Documented On 1 1:33PM ; [facility] Discussed nutritional needs teach healthy choices including fruits and vegetables Last Documented On 1 2:38PM ; [facility] Patient education about a pr oper diet Last Documented On 1 2:38PM ; [facility] Inquiry and counseling about medication administration and compliance Last Documented On 1 8:18AM ; [facility] Discussed concerns about exe rcise : promote physical activity Last Documented On 1 2:38PM ; [facility] Patient goals discussed Last Documented On 1 8:18AM ; [facility] Work Phone: Instructions Includes: Instructions for all patient encounters Education and Decision Aids were provided during visit for: *P offered active and supp ortive listening, normalized emotions and feelings, and processed ~current stressors. ~*Discussed healthy lifestyle behaviors Last Documented On 4 6:51PM ; [facility] Discussed nutritional needs teach healthy choices including fruits and vegetables Last Documented On 4 6:53PM ; [facility] Patient education about a pr oper diet Last Documented On 4 6:53PM ; [facility] Discussed concerns about exe rcise : promote physical activity ~ ~Will try steriod to help with hip pain ~ ~Follow up with orthopedics ~ ~Follow up in one month for weight loss evaluation Last Documented On 4 10:48AM ; [facility] Not requesting contraception Last Documented On 4 6:55PM ; [facility] offered active and suppo rtive listening and normalized emotions and feelings related to new job. ~P discussed coping skills and stress management techniques to implement. ~P encouraged patient to implement helathy lifestyle changes in addition to medications Last Documented On 3 5:22PM ; [facility] Discussed nutritional needs teach healthy choices including fruits and vegetables Last Documented On 3 4:24PM ; [facility] Patient education about a pr oper diet Last Documented On 3 4:24PM ; [facility] Discussed concerns about exe rcise : promote physical activity Last Documented On 3 4:24PM ; [facility] Not requesting contraception Last Documented On 3 4:24PM ; [facility] Discussed nutritional needs teach healthy choices including fruits and vegetables Last Documented On 3 11:59AM ; [facility] Patient education about a pr oper diet Last Documented On 3 11:59AM ; [facility] Discussed concerns about exe rcise : promote physical activitya ~ ~Follow up after hysterectomy if mental health declines Last Documented On 3 12:59PM ; [facility] provided supportive list ening and reflective feedback; provided pt space to share any concerns or problems impacting daily living. ~Acknowledged and normalized emotions. ~Promoted benefits of maintaining medication compliance, use healthy coping methods, and seek support, as needed Last Documented On 3 4:15PM ; [facility] Discussed nutritional needs teach healthy choices including fruits and vegetables Last Documented On 3 2:39PM ; [facility] Patient education about a pr oper diet Last Documented On 3 2:39PM ; [facility] Discussed concerns about exe rcise : promote physical activity ~ ~Will send to cardiology for heart palpitations ~ ~Follow up for mood in 6 months Last Documented On 3 3:28PM ; [facility] Discussed nutritional needs teach healthy choices including fruits and vegetables Last Documented On 3 1:54PM ; [facility] Patient education about a pr oper diet Last Documented On 3 1:54PM ; [facility] Discussed concerns about exe rcise : promote physical activity ~ ~Follow up in 4- 6 weeks Last Documented On 3 2:30PM ; [facility] Discussed nutritional needs teach healthy choices including fruits and vegetables Last Documented On 3 2:49PM ; [facility] Patient education about a pr oper diet Last Documented On 3 2:49PM ; [facility] Patient education about an a sthma action plan Last Documented On 3 3:43PM ; [facility] Discussed concerns about exe rcise : promote physical activity ~ ~Due severity of current symptoms will try ipratropium-albuterol with nebulizer ~ ~Will give patient a steriod to take if breathing gets any worse ~ ~Call office or go to ER if breathing gets worse ~ ~Pumonologist appt on 08/14 ~ Last Documented On 3 4:09PM ; [facility] provided active listening ; encouraged, explored, and supported the pt as she processed current stressor(s) impacting mood and functioning. ~Discussed and supported personal health goals. ~Explored coping mechanisms and support system; encouraged use, when needed Last Documented On 2 9:03AM ; [facility] Discussed nutritional needs teach healthy choices including fruits and vegetables Last Documented On 2 5:07PM ; [facility] Patient education about a pr oper diet Last Documented On 2 5:07PM ; [facility] Discussed concerns about exe rcise : promote physical activity ~ ~Will write for work restrictions ~ ~Continue to follow up with specialist Last Documented On 2 5:57PM ; [facility] Discussed current self-care methods/coping skills. ~Validated and normalized pt?s feelings while assisting patient process recent events. ~Discussed ongoing counseling. ~Discussed lifestyle changes to address chronic illness. nephew ~Supported patient's personal health goals ~ ~different music, dropped a lot of old friend, made new ones and support each other ~ ~better mood, less SI Last Documented On 2 6:00PM ; [facility] Discussed nutritional needs teach healthy choices including fruits and vegetables Last Documented On 2 4:56PM ; [facility] Patient education about a pr oper diet Last Documented On 2 4:56PM ; [facility] Inquiry and counseling about medication administration and compliance Last Documented On 2 5:55PM ; [facility] Discussed concerns about exe rcise : promote physical activity Last Documented On 2 4:56PM ; [facility] Patient goals discussed Last Documented On 2 5:55PM ; [facility] Discussed current self-care methods/coping skills. ~Validated and normalized patient's feelings while assisting process recent events. ~Discussed lifestyle changes to address chronic illness. ~Supported patient's personal health goals Last Documented On 2 9:29PM ; [facility] Discussed nutritional needs teach healthy choices including fruits and vegetables Last Documented On 2 10:54AM ; [facility] Patient education about a pr oper diet Last Documented On 2 10:54AM ; [facility] Discussed concerns about exe rcise : promote physical activity Last Documented On 2 10:54AM ; [facility] Discussed current self-care methods/coping skills. ~Validated and normalized patient's feelings while assisting process recent events. ~Discussed lifestyle changes to address chronic illness. ~Supported patient's personal health goals Last Documented On 2 2:41PM ; [facility] Discussed nutritional needs teach healthy choices including fruits and vegetables Last Documented On 2 11:38AM ; [facility] Patient education about a pr oper diet Last Documented On 2 11:38AM ; [facility] Inquiry and counseling about medication administration and compliance Last Documented On 2 7:32PM ; [facility] Discussed concerns about exe rcise : promote physical activity Last Documented On 2 11:38AM ; [facility] Patient goals discussed Last Documented On 2 7:32PM ; [facility] Discussed nutritional needs teach healthy choices including fruits and vegetables Last Documented On 1 3:56PM ; [facility] Patient education about a pr oper diet Last Documented On 1 3:56PM ; [facility] Inquiry and counseling about medication administration and compliance Last Documented On 1 4:30PM ; [facility] Discussed concerns about exe rcise : promote physical activity Last Documented On 1 3:56PM ; [facility] Patient goals discussed Last Documented On 1 4:30PM ; [facility] Discussed current self-care methods/coping skills; ~Discussed EMDR and encouraged engament in counseling and psychiatric care.. ~Provided local resources including hotline number if needed Last Documented On 1 1:03AM ; [facility] Discussed nutritional needs teach healthy choices including fruits and vegetables Last Documented On 1 3:31PM ; [facility] Patient education about a pr oper diet Last Documented On 1 3:31PM ; [facility] Discussed concerns about exe rcise : promote physical activity Last Documented On 1 3:31PM ; [facility] Discussed nutritional needs teach healthy choices including fruits and vegetables Last Documented On 1 3:31PM ; [facility] Patient education about a pr oper diet Last Documented On 1 3:31PM ; [facility] Discussed concerns about exe rcise : promote physical activity Last Documented On 1 3:31PM ; [facility] provided active listenin g, support and helped patient process through current symptoms and stressors related to physical health concerns as well as mood and anxiety. ~P reminded patient of importance of developing coping skills and supports. ~[facility] discussed considering online counseling resources Last Documented On 1 2:22PM ; [facility] Discussed nutritional needs teach healthy choices including fruits and vegetables Last Documented On 1 1:51PM ; [facility] Patient education about a pr oper diet Last Documented On 1 1:51PM ; [facility] Discussed concerns about exe rcise : promote physical activity Last Documented On 1 1:51PM ; [facility] model of care. ~P offered active and supportive listening, normalized emotions and feelings, processed current stressors and explored coping and stress reducing skills. ~[facility] discussed importanced of coping skills and postive supports. [facility] discussed coping skills such as breathing and mindfulness and handouts on how to implement them. [facility] discussed importance of counseling and provided list of resources in the area for patient to establish care Last Documented On 1 1:33PM ; [facility] Discussed nutritional needs teach healthy choices including fruits and vegetables Last Documented On 1 2:38PM ; [facility] Patient education about a pr oper diet Last Documented On 1 2:38PM ; [facility] Inquiry and counseling about medication administration and compliance Last Documented On 1 8:18AM ; [facility] Discussed concerns about exe rcise : promote physical activity Last Documented On 1 2:38PM ; [facility] Patient goals discussed Last Documented On 1 8:18AM ; [facility] Work Phone: Instructions Includes: Instructions for all patient encounters Education and Decision Aids were provided during visit for: Discussed nutritional needs teach healthy choices including fruits and vegetables Last Documented On 4 2:21PM ; [facility] Patient education about a pr oper diet Last Documented On 4 2:21PM ; [facility] Discussed concerns about exe rcise : promote physical activity Last Documented On 4 2:21PM ; [facility] Discussed nutritional needs teach healthy choices including fruits and vegetables Last Documented On 4 9:22AM ; [facility] Patient education about a pr oper diet Last Documented On 4 9:22AM ; [facility] Discussed concerns about exe rcise : promote physical activity ~ ~Follow up in 3 months Last Documented On 4 10:02AM ; [facility] Not requesting contraception Last Documented On 4 9:22AM ; [facility] *P offered active and supp ortive listening, normalized emotions and feelings, and processed ~current stressors. ~*Discussed healthy lifestyle behaviors Last Documented On 4 6:51PM ; [facility] Discussed nutritional needs teach healthy choices including fruits and vegetables Last Documented On 4 6:53PM ; [facility] Patient education about a pr oper diet Last Documented On 4 6:53PM ; [facility] Discussed concerns about exe rcise : promote physical activity ~ ~Will try steriod to help with hip pain ~ ~Follow up with orthopedics ~ ~Follow up in one month for weight loss evaluation Last Documented On 4 10:48AM ; [facility] Not requesting contraception Last Documented On 4 6:55PM ; [facility] and suppo rtive listening and normalized emotions and feelings related to new job. ~P discussed coping skills and stress management techniques to implement. ~P encouraged patient to implement helathy lifestyle changes in addition to medications Last Documented On 3 5:22PM ; [facility] Discussed nutritional needs teach healthy choices including fruits and vegetables Last Documented On 3 4:24PM ; [facility] Patient education about a pr oper diet Last Documented On 3 4:24PM ; [facility] Discussed concerns about exe rcise : promote physical activity Last Documented On 3 4:24PM ; [facility] Not requesting contraception Last Documented On 3 4:24PM ; [facility] Discussed nutritional needs teach healthy choices including fruits and vegetables Last Documented On 3 11:59AM ; [facility] Patient education about a pr oper diet Last Documented On 3 11:59AM ; [facility] Discussed concerns about exe rcise : promote physical activitya ~ ~Follow up after hysterectomy if mental health declines Last Documented On 3 12:59PM ; [facility] provided supportive list ening and reflective feedback; provided pt space to share any concerns or problems impacting daily living. ~Acknowledged and normalized emotions. ~Promoted benefits of maintaining medication compliance, use healthy coping methods, and seek support, as needed Last Documented On 3 4:15PM ; [facility] Discussed nutritional needs teach healthy choices including fruits and vegetables Last Documented On 3 2:39PM ; [facility] Patient education about a pr oper diet Last Documented On 3 2:39PM ; [facility] Discussed concerns about exe rcise : promote physical activity ~ ~Will send to cardiology for heart palpitations ~ ~Follow up for mood in 6 months Last Documented On 3 3:28PM ; [facility] Discussed nutritional needs teach healthy choices including fruits and vegetables Last Documented On 3 1:54PM ; [facility] Patient education about a pr oper diet Last Documented On 3 1:54PM ; [facility] Discussed concerns about exe rcise : promote physical activity ~ ~Follow up in 4- 6 weeks Last Documented On 3 2:30PM ; [facility] Discussed nutritional needs teach healthy choices including fruits and vegetables Last Documented On 3 2:49PM ; [facility] Patient education about a pr oper diet Last Documented On 3 2:49PM ; [facility] Patient education about an a sthma action plan Last Documented On 3 3:43PM ; [facility] Discussed concerns about exe rcise : promote physical activity ~ ~Due severity of current symptoms will try ipratropium-albuterol with nebulizer ~ ~Will give patient a steriod to take if breathing gets any worse ~ ~Call office or go to ER if breathing gets worse ~ ~Pumonologist appt on 08/14 ~ Last Documented On 3 4:09PM ; [facility] provided active listening ; encouraged, explored, and supported the pt as she processed current stressor(s) impacting mood and functioning. ~Discussed and supported personal health goals. ~Explored coping mechanisms and support system; encouraged use, when needed Last Documented On 2 9:03AM ; [facility] Discussed nutritional needs teach healthy choices including fruits and vegetables Last Documented On 2 5:07PM ; [facility] Patient education about a pr oper diet Last Documented On 2 5:07PM ; [facility] Discussed concerns about exe rcise : promote physical activity ~ ~Will write for work restrictions ~ ~Continue to follow up with specialist Last Documented On 2 5:57PM ; [facility] Discussed current self-care methods/coping skills. ~Validated and normalized pt?s feelings while assisting patient process recent events. ~Discussed ongoing counseling. ~Discussed lifestyle changes to address chronic illness. nephew ~Supported patient's personal health goals ~ ~different music, dropped a lot of old friend, made new ones and support each other ~ ~better mood, less SI Last Documented On 2 6:00PM ; [facility] Discussed nutritional needs teach healthy choices including fruits and vegetables Last Documented On 2 4:56PM ; [facility] Patient education about a pr oper diet Last Documented On 2 4:56PM ; [facility] Inquiry and counseling about medication administration and compliance Last Documented On 2 5:55PM ; [facility] Discussed concerns about exe rcise : promote physical activity Last Documented On 2 4:56PM ; [facility] Patient goals discussed Last Documented On 2 5:55PM ; [facility] Discussed current self-care methods/coping skills. ~Validated and normalized patient's feelings while assisting process recent events. ~Discussed lifestyle changes to address chronic illness. ~Supported patient's personal health goals Last Documented On 2 9:29PM ; [facility] Discussed nutritional needs teach healthy choices including fruits and vegetables Last Documented On 2 10:54AM ; [facility] Patient education about a pr oper diet Last Documented On 2 10:54AM ; [facility] Discussed concerns about exe rcise : promote physical activity Last Documented On 2 10:54AM ; [facility] Discussed current self-care methods/coping skills. ~Validated and normalized patient's feelings while assisting process recent events. ~Discussed lifestyle changes to address chronic illness. ~Supported patient's personal health goals Last Documented On 2 2:41PM ; [facility] Discussed nutritional needs teach healthy choices including fruits and vegetables Last Documented On 2 11:38AM ; [facility] Patient education about a pr oper diet Last Documented On 2 11:38AM ; [facility] Inquiry and counseling about medication administration and compliance Last Documented On 2 7:32PM ; [facility] Discussed concerns about exe rcise : promote physical activity Last Documented On 2 11:38AM ; [facility] Patient goals discussed Last Documented On 2 7:32PM ; [facility] Discussed nutritional needs teach healthy choices including fruits and vegetables Last Documented On 1 3:56PM ; [facility] Patient education about a pr oper diet Last Documented On 1 3:56PM ; [facility] Inquiry and counseling about medication administration and compliance Last Documented On 1 4:30PM ; [facility] Discussed concerns about exe rcise : promote physical activity Last Documented On 1 3:56PM ; [facility] Patient goals discussed Last Documented On 1 4:30PM ; [facility] Discussed current self-care methods/coping skills; ~Discussed EMDR and encouraged engament in counseling and psychiatric care.. ~Provided local resources including hotline number if needed Last Documented On 1 1:03AM ; [facility] Discussed nutritional needs teach healthy choices including fruits and vegetables Last Documented On 1 3:31PM ; [facility] Patient education about a pr oper diet Last Documented On 1 3:31PM ; [facility] Discussed concerns about exe rcise : promote physical activity Last Documented On 1 3:31PM ; [facility] Discussed nutritional needs teach healthy choices including fruits and vegetables Last Documented On 1 3:31PM ; [facility] Patient education about a pr oper diet Last Documented On 1 3:31PM ; [facility] Discussed concerns about exe rcise : promote physical activity Last Documented On 1 3:31PM ; [facility] provided active listenin g, support and helped patient process through current symptoms and stressors related to physical health concerns as well as mood and anxiety. ~[facility] reminded patient of importance of developing coping skills and supports. ~[facility] discussed considering online counseling resources Last Documented On 1 2:22PM ; [facility] Discussed nutritional needs teach healthy choices including fruits and vegetables Last Documented On 1 1:51PM ; [facility] Patient education about a pr oper diet Last Documented On 1 1:51PM ; [facility] Discussed concerns about exe rcise : promote physical activity Last Documented On 1 1:51PM ; [facility] introduced patient to [facility] integrated model of care. ~[facility] offered active and supportive listening, normalized emotions and feelings, processed current stressors and explored coping and stress reducing skills. ~[facility] discussed importanced of coping skills and postive supports. [facility] discussed coping skills such as breathing and mindfulness and handouts on how to implement them. [facility] discussed importance of counseling and provided list of resources in the area for patient to establish care Last Documented On 1 1:33PM ; [facility] Discussed nutritional needs teach healthy choices including fruits and vegetables Last Documented On 1 2:38PM ; [facility] Patient education about a pr oper diet Last Documented On 1 2:38PM ; [facility] Inquiry and counseling about medication administration and compliance Last Documented On 1 8:18AM ; [facility] Discussed concerns about exe rcise : promote physical activity Last Documented On 1 2:38PM ; [facility] Patient goals discussed Last Documented On 1 8:18AM ; [facility] Work Phone: Instructions Includes: Instructions for all patient encounters Education and Decision Aids were provided during visit for: ~*[facility] offered active and sup portive listening, normalized emotions and feelings, and processed ~current stressors Last Documented On 4 7:06PM ; [facility] Discussed nutritional needs teach healthy choices including fruits and vegetables Last Documented On 4 2:21PM ; [facility] Patient education about a pr oper diet Last Documented On 4 2:21PM ; [facility] Discussed concerns about exe rcise : promote physical activity Last Documented On 4 2:21PM ; [facility] Discussed nutritional needs teach healthy choices including fruits and vegetables Last Documented On 4 9:22AM ; [facility] Patient education about a pr oper diet Last Documented On 4 9:22AM ; [facility] Discussed concerns about exe rcise : promote physical activity ~ ~Follow up in 3 months Last Documented On 4 10:02AM ; [facility] Not requesting contraception Last Documented On 4 9:22AM ; [facility] *[facility] offered active and supp ortive listening, normalized emotions and feelings, and processed ~current stressors. ~*Discussed healthy lifestyle behaviors Last Documented On 4 6:51PM ; [facility] Discussed nutritional needs teach healthy choices including fruits and vegetables Last Documented On 4 6:53PM ; [facility] Patient education about a pr oper diet Last Documented On 4 6:53PM ; [facility] Discussed concerns about exe rcise : promote physical activity ~ ~Will try steriod to help with hip pain ~ ~Follow up with orthopedics ~ ~Follow up in one month for weight loss evaluation Last Documented On 4 10:48AM ; [facility] Not requesting contraception Last Documented On 4 6:55PM ; [facility] offered active and suppo rtive listening and normalized emotions and feelings related to new job. ~[facility] discussed coping skills and stress management techniques to implement. ~[facility] encouraged patient to implement helathy lifestyle changes in addition to medications Last Documented On 3 5:22PM ; [facility] Discussed nutritional needs teach healthy choices including fruits and vegetables Last Documented On 3 4:24PM ; [facility] Patient education about a pr oper diet Last Documented On 3 4:24PM ; [facility] Discussed concerns about exe rcise : promote physical activity Last Documented On 3 4:24PM ; [facility] Not requesting contraception Last Documented On 3 4:24PM ; [facility] Discussed nutritional needs teach healthy choices including fruits and vegetables Last Documented On 3 11:59AM ; [facility] Patient education about a pr oper diet Last Documented On 3 11:59AM ; [facility] Discussed concerns about exe rcise : promote physical activitya ~ ~Follow up after hysterectomy if mental health declines Last Documented On 3 12:59PM ; [facility] provided supportive list ening and reflective feedback; provided pt space to share any concerns or problems impacting daily living. ~Acknowledged and normalized emotions. ~Promoted benefits of maintaining medication compliance, use healthy coping methods, and seek support, as needed Last Documented On 3 4:15PM ; [facility] Discussed nutritional needs teach healthy choices including fruits and vegetables Last Documented On 3 2:39PM ; [facility] Patient education about a pr oper diet Last Documented On 3 2:39PM ; [facility] Discussed concerns about exe rcise : promote physical activity ~ ~Will send to cardiology for heart palpitations ~ ~Follow up for mood in 6 months Last Documented On 3 3:28PM ; [facility] Discussed nutritional needs teach healthy choices including fruits and vegetables Last Documented On 3 1:54PM ; [facility] Patient education about a pr oper diet Last Documented On 3 1:54PM ; [facility] Discussed concerns about exe rcise : promote physical activity ~ ~Follow up in 4- 6 weeks Last Documented On 3 2:30PM ; [facility] Discussed nutritional needs teach healthy choices including fruits and vegetables Last Documented On 3 2:49PM ; [facility] Patient education about a pr oper diet Last Documented On 3 2:49PM ; [facility] Patient education about an a sthma action plan Last Documented On 3 3:43PM ; [facility] Discussed concerns about exe rcise : promote physical activity ~ ~Due severity of current symptoms will try ipratropium-albuterol with nebulizer ~ ~Will give patient a steriod to take if breathing gets any worse ~ ~Call office or go to ER if breathing gets worse ~ ~Pumonologist appt on 08/14 ~ Last Documented On 3 4:09PM ; [facility] provided active listening ; encouraged, explored, and supported the pt as she processed current stressor(s) impacting mood and functioning. ~Discussed and supported personal health goals. ~Explored coping mechanisms and support system; encouraged use, when needed Last Documented On 2 9:03AM ; [facility] Discussed nutritional needs teach healthy choices including fruits and vegetables Last Documented On 2 5:07PM ; [facility] Patient education about a pr oper diet Last Documented On 2 5:07PM ; [facility] Discussed concerns about exe rcise : promote physical activity ~ ~Will write for work restrictions ~ ~Continue to follow up with specialist Last Documented On 2 5:57PM ; [facility] Discussed current self-care methods/coping skills. ~Validated and normalized pt?s feelings while assisting patient process recent events. ~Discussed ongoing counseling. ~Discussed lifestyle changes to address chronic illness. nephew ~Supported patient's personal health goals ~ ~different music, dropped a lot of old friend, made new ones and support each other ~ ~better mood, less SI Last Documented On 2 6:00PM ; [facility] Discussed nutritional needs teach healthy choices including fruits and vegetables Last Documented On 2 4:56PM ; [facility] Patient education about a pr oper diet Last Documented On 2 4:56PM ; [facility] Inquiry and counseling about medication administration and compliance Last Documented On 2 5:55PM ; [facility] Discussed concerns about exe rcise : promote physical activity Last Documented On 2 4:56PM ; [facility] Patient goals discussed Last Documented On 2 5:55PM ; [facility] Discussed current self-care methods/coping skills. ~Validated and normalized patient's feelings while assisting process recent events. ~Discussed lifestyle changes to address chronic illness. ~Supported patient's personal health goals Last Documented On 2 9:29PM ; [facility] Discussed nutritional needs teach healthy choices including fruits and vegetables Last Documented On 2 10:54AM ; [facility] Patient education about a pr oper diet Last Documented On 2 10:54AM ; [facility] Discussed concerns about exe rcise : promote physical activity Last Documented On 2 10:54AM ; [facility] Discussed current self-care methods/coping skills. ~Validated and normalized patient's feelings while assisting process recent events. ~Discussed lifestyle changes to address chronic illness. ~Supported patient's personal health goals Last Documented On 2 2:41PM ; [facility] Discussed nutritional needs teach healthy choices including fruits and vegetables Last Documented On 2 11:38AM ; [facility] Patient education about a pr oper diet Last Documented On 2 11:38AM ; [facility] Inquiry and counseling about medication administration and compliance Last Documented On 2 7:32PM ; [facility] Discussed concerns about exe rcise : promote physical activity Last Documented On 2 11:38AM ; [facility] Patient goals discussed Last Documented On 2 7:32PM ; [facility] Discussed nutritional needs teach healthy choices including fruits and vegetables Last Documented On 1 3:56PM ; [facility] Patient education about a pr oper diet Last Documented On 1 3:56PM ; [facility] Inquiry and counseling about medication administration and compliance Last Documented On 1 4:30PM ; [facility] Discussed concerns about exe rcise : promote physical activity Last Documented On 1 3:56PM ; [facility] Patient goals discussed Last Documented On 1 4:30PM ; [facility] Discussed current self-care methods/coping skills; ~Discussed EMDR and encouraged engament in counseling and psychiatric care.. ~Provided local resources including hotline number if needed Last Documented On 1 1:03AM ; [facility] Discussed nutritional needs teach healthy choices including fruits and vegetables Last Documented On 1 3:31PM ; [facility] Patient education about a pr oper diet Last Documented On 1 3:31PM ; [facility] Discussed concerns about exe rcise : promote physical activity Last Documented On 1 3:31PM ; [facility] Discussed nutritional needs teach healthy choices including fruits and vegetables Last Documented On 1 3:31PM ; [facility] Patient education about a pr oper diet Last Documented On 1 3:31PM ; [facility] Discussed concerns about exe rcise : promote physical activity Last Documented On 1 3:31PM ; [facility] provided active listenin g, support and helped patient process through current symptoms and stressors related to physical health concerns as well as mood and anxiety. ~[facility] reminded patient of importance of developing coping skills and supports. ~P discussed considering online counseling resources Last Documented On 1 2:22PM ; [facility] Discussed nutritional needs teach healthy choices including fruits and vegetables Last Documented On 1 1:51PM ; [facility] Patient education about a pr oper diet Last Documented On 1 1:51PM ; [facility] Discussed concerns about exe rcise : promote physical activity Last Documented On 1 1:51PM ; [facility] introduced patient to [facility] integrated model of care. ~P offered active and supportive listening, normalized emotions and feelings, processed current stressors and explored coping and stress reducing skills. ~P discussed importanced of coping skills and postive supports. P discussed coping skills such as breathing and mindfulness and handouts on how to implement them. [facility] discussed importance of counseling and provided list of resources in the area for patient to establish care Last Documented On 1 1:33PM ; [facility] Discussed nutritional needs teach healthy choices including fruits and vegetables Last Documented On 1 2:38PM ; [facility] Patient education about a pr oper diet Last Documented On 1 2:38PM ; [facility] Inquiry and counseling about medication administration and compliance Last Documented On 1 8:18AM ; [facility] Discussed concerns about exe rcise : promote physical activity Last Documented On 1 2:38PM ; [facility] Patient goals discussed Last Documented On 1 8:18AM ; [facility] Work Phone: InstructionsNot on filedocumented in this encounter [facility] [place] SystemInstructionsNot on filedocumented in this encounter [facility] SystemPatient problem outcome Narrative Includes: Evaluations & Outcomes for active Goals No [facility] Work Phone: Progress note* Progress note Date Encounter Last Documented by 12/26/2022 Medical Established Patient Last documented on 12/26/2022; 1:00 PM, Yohan James CNP; [facility] Active Problems & Conditions - J45.909 - Allergic Bronchitis - S06.0X0S - Concussion Injury of Brain - M25.552 - Joint Pain Hip Worse with Weightbearing Standing - M54.5 - Lumbago - F33.1 - Major Depression Recurrent Moderate - R00.2 - Palpitations - E28.2 - Polycystic Ovarian Syndrome (Pcos) - R06.83 - Snoring Chief Complaint The Chief Complaint is: Mental health evaluation for hysterectomy per the obgyn. surgery is for january 05. Patient stated that obgyn staed she was high risk on screening at appointment. Referred Here Not referred by urgent care clinic. Referred by emergency room. Prior encounters. - Data to be reviewed: no clinical lab tests History of Present Illness Oswald Cox is a 27 year old female. - Reviewed Medications. Patient presents for follow up for mental health evaluation Patient states that the mental health is stable and the questions that she answered at her OBGYNs office were based on her mood due to her chronic pain States that once she gets her hysterectomy she will be out of pain Patient states that her mood is stable and does not want to switch any of her medications around. Current Medication - *MEDICAL MARIJUANA Miscellaneous 0 days, 0 refills - busPIRone HCl 10 MG Oral Tablet TAKE ONE TABLET BY MOUTH TWICE A DAY, 30 days, 5 refills - Ipratropium-Albuterol 0.5-2.5 (3) MG/3ML Inhalation Solution Inhale 3ml per nebulizer every 4 hours as needed for shortness of breath, 10 days, 0 refills - Paxil 30 MG Oral Tablet Take one tablet daily, 30 days, 2 refills - Singulair 10 MG Oral Tablet Take one tablet daily, 30 days, 6 refills - Symbicort 160-4.5 MCG/ACT Inhalation Aerosol 0 days, 0 refills - Tranexamic Acid 650 MG Oral Tablet 5 days, 0 refills - Ventolin HFA 108 (90 Base) MCG/ACT Inhalation Aerosol Solution inhale 1-2 puffs every 4-6 hours as needed for wheezing/shortness of breath, 30 days, 11 refills Past Medical/Surgical History Reported: Medical: No previous hospitalizations. Immunization History: Recent immunization for flu. : Not planning to have a baby in the next 12 months. Diagnoses: Gynecologic disorder PCOS, endometriosis Surgical: - Tonsillectomy 2006 - Tonsillectomy with adenoidectomy - General surgery exploratory laproscopic surgery- looking for endometriosis 11/2019 - Cholecystectomy 08/2015 - Decompression of median nerve at carpal tunnel Carpal Tunnel Release right wrist 01/2021 Social History Environmental Exposure: Secondhand cigarette smoke exposure. Behavioral: Not a current tobacco user. Tobacco use: Not using electronic cigarettes/vaping. Alcohol: A social drinker. Drug Use: Using marijuana. Sexual: Sexual orientation Straight (not lesbian or davis) and gender identity Female. Allergies - No Known Allergies Family History Paternal: Cardiovascular disorder heart attack at age 53 Systemic hypertension Maternal: Systemic hypertension Asthma Renal disorder Fraternal: Psychiatric disorders anxiety Sororal: Stroke syndrome age 18 Physical Findings - Vitals taken 12/26/2022 11:54 am BP-Sitting L115/74 mmHg BP Cuff SizeLarge Pulse Rate-Oijuqfm07 bpm Pulse RhythmRegular Temp-Oral97.5 F Hmcxzh21 in Tmijyx934 lbs 11.2 oz Body Mass Index49.5 kg/m2 Body Surface Area2.6 m2 Oxygen Lsvycddxer16 % Assessment - Body mass index [Body mass index [BMI] 45.0-49.9, adult] - Moderate recurrent major depression [Major depressive disorder, recurrent, moderate] Vaccinations - Received dose of Reported: Patient has received the COVID Vaccine Counseling/Education - Discussed nutritional needs teach healthy choices including fruits and vegetables - Patient education about a proper diet - Discussed concerns about exercise: promote physical activitya Follow up after hysterectomy if mental health declines Plan StartCited- Major depressive disorder, recurrent, moderate Paxil 30 MG tablet Take one tablet daily, 30 days, 5 refills EndCited Practice Management Systolic blood pressure < 130 mmHg and diastolic < 80 mmHg diastolic < 80 mmHg. Advance Directives - [facility]No Reason for Referral [facility]ed[facility] Work Phone: [facility] Narrative* Consultation (Routine) - Pending Review Specialty Diagnoses / Procedures Referred By Annia zhou Referred To Contact Rheumatology Diagnoses Chronic generalized pain Janette Miller, STRATIGRAPHER-PROFESSIONAL PROGRAMMER ANALYST [address] [place] [address] Phone: tel: fax: Lizbeth Fournier MD M[facility] [id number] [id number] Phone: tel: fax: Referral ID Status Reason Start Date Expiration Date Visits Requested Visits Authorized [id number] Pending Review Specialty Services Required 09/05/2024 09/05/2025 1 1 [facility] SystemReview of systems Narrative - Reported Review of Systems not supported for this document type No Review of Systems [facility] Work Phone: Summary Purpose Family History No Family History Records Found Description Last Updated Fraternal history of psychiatric disorde rs anxiety 07/25/2020 Maternal history of asthma 07/25/2020 Maternal history of hypertension 021 Maternal history of renal disorder 07/25 Paternal history of hypertension 021 Sororal history of stroke syndrome age 1 8 07/25/2020 Description Last Updated Paternal history of cardiovascular disor neel heart attack at age 53 08/12/2021 Fraternal history of psychiatric disorde rs anxiety 07/25/2020 Maternal history of asthma 07/25/2020 Maternal history of hypertension 021 Maternal history of renal disorder 07/25 Paternal history of hypertension 021 Sororal history of stroke syndrome age 1 8 07/25/2020 Description Last Updated Paternal history of cardiovascular disor neel heart attack at age 53 08/12/2021 Last Documented On 2 1:16PM ; [facility] Fraternal history of psychiatric disorde rs anxiety 07/25/2020 Last Documented On 1 9:00AM ; [facility] Maternal history of asthma 07/25/2020 Maternal history of hypertension 021 Maternal history of renal disorder 07/25 Paternal history of hypertension 021 Sororal history of stroke syndrome age 1 8 07/25/2020 Description Last Updated Paternal history of cardiovascular disor neel heart attack at age 53 08/12/2021 Last Documented On 2 1:16PM ; [facility] Fraternal history of psychiatric disorde rs anxiety 07/25/2020 Last Documented On 1 9:00AM ; [facility] Maternal history of asthma 07/25/2020 Maternal history of hypertension 021 Maternal history of renal disorder 07/25 Paternal history of hypertension 021 Sororal history of stroke syndrome age 1 8 07/25/2020 Description Last Updated Paternal history of cardiovascular disor neel heart attack at age 53 08/12/2021 Last Documented On 2 1:16PM ; [facility] Fraternal history of psychiatric disorde rs anxiety 07/25/2020 Last Documented On 1 9:00AM ; [facility] Maternal history of asthma 07/25/2020 Maternal history of hypertension 021 Maternal history of renal disorder 07/25 Paternal history of hypertension 021 Sororal history of stroke syndrome age 1 8 07/25/2020 Description Last Updated Paternal history of cardiovascular disor neel heart attack at age 53 08/12/2021 Last Documented On 2 1:16PM ; [facility] Fraternal history of psychiatric disorde rs anxiety 07/25/2020 Last Documented On 1 9:00AM ; [facility] Maternal history of asthma 07/25/2020 Maternal history of hypertension 021 Maternal history of renal disorder 07/25 Paternal history of hypertension 021 Sororal history of stroke syndrome age [age] 07/25/2020 Description Last Updated Paternal history of cardiovascular disor neel heart attack at age 53 08/12/2021 Last Documented On 2 1:16PM ; [facility] Fraternal history of psychiatric disorde rs anxiety 07/25/2020 Last Documented On 1 9:00AM ; [facility] Maternal history of asthma 07/25/2020 Maternal history of hypertension 021 Maternal history of renal disorder 07/25 Paternal history of hypertension 021 Sororal history of stroke syndrome age 1 8 07/25/2020 Description Last Updated Paternal history of cardiovascular disor neel heart attack at age 53 08/12/2021 Last Documented On 2 1:16PM ; [facility] Fraternal history of psychiatric disorde rs anxiety 07/25/2020 Last Documented On 1 9:00AM ; [facility] Maternal history of asthma 07/25/2020 Maternal history of hypertension 021 Maternal history of renal disorder 07/25 Paternal history of hypertension 021 Sororal history of stroke syndrome age [age] 07/25/2020 Description Last Updated Paternal history of cardiovascular disor neel heart attack at age 53 08/12/2021 Last Documented On 2 1:16PM ; [facility] Fraternal history of psychiatric disorde rs anxiety 07/25/2020 Last Documented On 1 9:00AM ; [facility] Maternal history of asthma 07/25/2020 Maternal history of hypertension 021 Maternal history of renal disorder 07/25 Paternal history of hypertension 021 Sororal history of stroke syndrome age [age] 07/25/2020 Description Last Updated Paternal history of cardiovascular disor neel heart attack at age 53 08/12/2021 Last Documented On 2 1:16PM ; [facility] Fraternal history of psychiatric disorde rs anxiety 07/25/2020 Last Documented On 1 9:00AM ; [facility] Maternal history of asthma 07/25/2020 Maternal history of hypertension 021 Maternal history of renal disorder 07/25 Paternal history of hypertension 021 Sororal history of stroke syndrome age [age] 07/25/2020 Description Last Updated Paternal history of cardiovascular disor neel heart attack at age 53 08/12/2021 Last Documented On 2 1:16PM ; [facility] Fraternal history of psychiatric disorde rs anxiety 07/25/2020 Last Documented On 1 9:00AM ; [facility] Maternal history of asthma 07/25/2020 Maternal history of hypertension 021 Maternal history of renal disorder 07/25 Paternal history of hypertension 021 Sororal history of stroke syndrome age [age] 07/25/2020 Description Last Updated Paternal history of cardiovascular disor neel heart attack at age 53 08/12/2021 Last Documented On 2 1:16PM ; [facility] Fraternal history of psychiatric disorde rs anxiety 07/25/2020 Last Documented On 1 9:00AM ; [facility] Maternal history of asthma 07/25/2020 Maternal history of hypertension 021 Maternal history of renal disorder 07/25 Paternal history of hypertension 021 Sororal history of stroke syndrome age [age] 07/25/2020 Description Last Updated Paternal history of cardiovascular disor neel heart attack at age 53 08/12/2021 Last Documented On 2 1:16PM ; [facility] Fraternal history of psychiatric disorde rs anxiety 07/25/2020 Last Documented On 1 9:00AM ; [facility] Maternal history of asthma 07/25/2020 Maternal history of hypertension 021 Maternal history of renal disorder 07/25 Paternal history of hypertension 021 Sororal history of stroke syndrome age 1 8 07/25/2020 Description Last Updated Paternal history of congenital heart dis ease 02/05/2024 Last Documented On 4 3:09PM ; [facility] Paternal history of respiratory disorder COPD 02/05/2024 Paternal history of cardiovascular disor neel heart attack at age 53 08/12/2021 Last Documented On 2 1:16PM ; [facility] Fraternal history of psychiatric disorde rs anxiety 07/25/2020 Last Documented On 1 9:00AM ; [facility] Maternal history of asthma 07/25/2020 Maternal history of hypertension 021 Maternal history of renal disorder 07/25 Paternal history of hypertension 021 Sororal history of stroke syndrome age [age] 07/25/2020 Description Last Updated Paternal history of cardiovascular disor neel heart attack at age 53 08/12/2021 Last Documented On 2 1:16PM ; [facility] Fraternal history of psychiatric disorde rs anxiety 07/25/2020 Last Documented On 1 9:00AM ; [facility] Maternal history of asthma 07/25/2020 Maternal history of hypertension 021 Maternal history of renal disorder 07/25 Paternal history of hypertension 021 Sororal history of stroke syndrome age [age] 07/25/2020 Description Last Updated Paternal history of congenital heart dis ease 02/05/2024 Last Documented On 4 8:28AM ; [facility] Paternal history of respiratory disorder COPD 02/05/2024 Paternal history of cardiovascular disor neel heart attack at age 51 08/12/2021 Last Documented On 2 1:16PM ; [facility] Fraternal history of psychiatric disorde rs anxiety 07/25/2020 Last Documented On 1 9:00AM ; [facility] Maternal history of asthma 07/25/2020 Maternal history of hypertension 021 Maternal history of renal disorder 07/25 Paternal history of hypertension 021 Sororal history of stroke syndrome age [age] 07/25/2020 Advance Directives No Advanced Directives Records FoundDocuments on File Type Date Recorded 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 Advance Directives and Living Will Power of Brilliandeer Looper Documents on File Type Date Recorded 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 Advance Directives and Living Will Power of Brilliandeer Looper Latest Code Status on File Code Status Date Activated Date Inactivated Comments Full Code 11/16/2019 9:49 AM Full Code 11/16/2019 7:10 AM 11/16/2019 9:49 AM Documents on File Type Date Recorded 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 ACP-Advance Directive ACP-Power of Brilliandeer Looper Latest Code Status on File Code Status Date Activated Date Inactivated Comments Full Code 11/16/2019 9:49 AM 11/16/2019 1:25 PM Full Code 11/16/2019 7:10 AM 11/16/2019 9:49 AM Documents on File Type Date Recorded 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 Gave patient informational packet and was advised to fill out and return once completed. Latest Code Status on File Code Status Date Activated Date Inactivated Comments Full Code 11/16/2019 9:49 AM 11/16/2019 1:25 PM Code Status History Code Status Date Activated Date Inactivated Comments Full Code 11/16/2019 7:10 AM 11/16/2019 9:49 AM Latest Code Status on File Code Status Date Activated Date Inactivated Comments Full Code 11/16/2019 9:49 AM 11/16/2019 1:25 PM Code Status History Code Status Date Activated Date Inactivated Comments Full Code 11/16/2019 7:10 AM 11/16/2019 9:49 AM Latest Code Status on File Code Status Date Activated Date Inactivated Comments Full Code 01/05/2023 11:04 AM 01/05/2023 7:42 PM Code Status History Code Status Date Activated Date Inactivated Comments Full Code 11/16/2019 9:49 AM 11/16/2019 1:25 PM Full Code 11/16/2019 7:10 AM 11/16/2019 9:49 AM Date Activated Date Inactivated Comments 01/05/2023 11:04 AM 01/05/2023 7:42 PM Date Activated Date Inactivated Comments 11/16/2019 9:49 AM 11/16/2019 1:25 PM Date Activated Date Inactivated Comments 11/16/2019 7:10 AM 11/16/2019 9:49 AM Discharge Instructions * Attachments The following attachments cannot be sent through Care Everywhere. * URI (Upper Respiratory Infection): Viral (Ugandan) documented in this encounter* Instructions* Samantha Dukes RN - 11/16/2019 SAME DAY SURGERY DISCHARGE INSTRUCTIONS 1. Do not drive or operate hazardous machinery for 24 hours. 2. Do not make important personal or business decisions for 24 hours. 3. Do not drink alcoholic beverages for 24 hours. 4. Do not smoke tobacco products for 24 hours. You have just undergone a minor operative procedure and these instructions should help you through the postoperative phase of the operation. Most patients feel sleepy for several hours after going home and this anesthetic effect may not wear off until the next morning. You should not use any alcoholic beverages or drive until the following day. It is advisable to take it easy for one or two days following your procedure by avoiding any lifting, pushing, moving or carrying any heavy objects; thereafter, you should be able to resume most of your normal activities and return to work. If you had a laparoscopy, mild shoulder and upper abdominal discomfort will be experienced by some patients for 24 to 48 hours and it is the result of the gas placed into your abdomen so that the procedure could be performed. Your pain medication should help with this. The band-aids or dressings on your abdomen may be removed the following day. You have stitches under each of these and they will dissolve by themselves -- they do not need to be removed. You may shower and there is no concern if the stitches get wet. If the stiches start to get red or bother you, try using hot compresses two or three times a day for approximately 20-30 minutes each time. You may buy Bacitracin or Neosporin ointment at any drug store and apply it to the area after soaking. Theinflammation should subside in a day or so. If it does not, or seems to become worse, or you seem to experience abdominal discomfort, please call the office. You may experience some cramping or some mild to moderate lower abdominal discomfort, but this should be gone by the next day. In the meantime, you may take an awga-rzv-tjtcdyi analgesic (Tylenol, Anacin, etc.) and use a heating pad applied to the lower abdomen. Please call the office as soon as possible for a post-operative visit in two weeks. If you experience any unusual amount of bleeding or side effects that you cannot readily explain, please do not hesitate to call the office. documented in this encounter* Attachments The following attachments cannot be sent through Care Everywhere. * Abdominal Pain (Ugandan) documented in this encounter* Instructions* Shayan Reyes MD - 03/20/2020 Please take all medications as prescribed. If you have received narcotic medications (pain killers) while in the Emergency Room you are NOT todrive yourself home today, you need to find a ride, take the bus or call a cab. Please do not drive, operate machinery or engage in any activities that requrie concentration and where safety could be an issue while taking narcotic medications (pain killers). Please follow up with your primary care physician by calling today, or as soon as possible, for thefirst available appointment. If you do not have a primary care physician, please contact a physician or clinic listed below today to establish care. Please return to the emergency department IMMEDIATELY if you develop uncontrolled fevers, uncontrolled vomiting, change in symptoms, worsening of symptoms, or ANY other concerns. * Attachments The following attachments cannot be sent through Care Everywhere. * Back: Strain (Ugandan) documented in this encounter* Instructions* Shayan Reyes MD - 05/16/2020 Please take all medications as prescribed. Please follow up with your primary care physician by calling today, or as soon as possible, for thefirst available appointment. If you do not have a primary care physician, please contact a physician or clinic listed below today to establish care. Please return to the emergency department IMMEDIATELY if you develop uncontrolled fevers, uncontrolled vomiting, change in symptoms, worsening of symptoms, or ANY other concerns. * Attachments The following attachments cannot be sent through Care Everywhere. * Hip Sprain (Ugandan) documented in this encounter* Instructions* Lyla Rojas PA-C - 07/17/2020 Call to arrange follow-up with primary care provider listed below. Continue taking Tylenol. * Attachments The following attachments cannot be sent through Care Everywhere. * Coronavirus Disease (COVID-19): General Info (Ugandan) documented in this encounter* Instructions* Anjum Mckeon MD - 08/29/2020 Tylenol and/or Motrin as needed for any pain. Use Zofran as needed for nausea or vomiting. Increasefluid intake. [place] and soft foods until symptoms resolve. Seek medical attention immediately for any worsening symptoms or any acute concerns * Attachments The following attachments cannot be sent through Care Everywhere. * Nausea and Vomiting (Ugandan) * Abdominal Pain (Ugandan) documented in this encounter* Attachments The following attachments cannot be sent through Care Everywhere. * Asthma Triggers: General Info (Ugandan) * Asthma: Asthma Control (Ugandan) documented in this encounter Assessments Diagnosis Upper respiratory tract infection, unspecified type- Primary Diagnosis S/P laparoscopy Other postprocedural status Pelvic pain in female Unspecified symptom associated with female genital organs Diagnosis Chronic bilateral lower abdominal pain Abdominal pain, other specified site Diagnosis Strain of lumbar region, initial encounter Diagnosis Hip sprain, left, initial encounter Diagnosis Chest pain, unspecified type- Primary COVID-19 Findings Encounter Date Generalized anxiety disorder [facility] Patient with Eufemia Short LISWS 07/25/2020 Mild recurrent major depression BH Estab lished Patient with Eufemia Short LISWS 07/25/2020 Body mass index Medical New Patient with Yohan Blanca PROFESSIONAL PROGRAMMER ANALYST 07/25/2020 Diabetes Risk Test Score was five score 07/25/2020 Medical New Patient with Yohan Blanca PROFESSIONAL PROGRAMMER ANALYST 07/25/2020 Morbid obesity Medical New Patient with Yohan Blanca PROFESSIONAL PROGRAMMER ANALYST 07/25/2020 Diagnosis Preoperative testing Preoperative examination, unspecified Diagnosis Shortness of breath Diagnosis Abdominal cramping in right lower quadrant Abdominal pain, right lower quadrant Women's annual routine gynecological examination Diagnosis Right lower quadrant abdominal pain- Primary Abdominal pain, right lower quadrant Nausea and vomiting, intractability of vomiting not specified, unspecified vomiting type Findings Encounter Date Generalized anxiety disorder BH Establis hed Patient with Eufemia Short LISWS 08/28/2020 Mild recurrent major depression BH Estab lished Patient with Eufemia Short LISWS 08/28/2020 Allergic bronchitis Medical Established Patient with Yohan Blanca PROFESSIONAL PROGRAMMER ANALYST 08/28/2020 Assessment of snoring Medical Establishe d Patient with Yohan Blanca PROFESSIONAL PROGRAMMER ANALYST 08/28/2020 Body mass index [Body mass i ndex [BMI] 45.0-49.9, adult] Medical Established Patient with Yohan Blanca PROFESSIONAL PROGRAMMER ANALYST 08/28/2020 Mild recurrent major depression Medical Established Patient with Yohan Blanca PROFESSIONAL PROGRAMMER ANALYST 08/28/2020 Morbid obesity Medical Established Patient with Yohan Blanca PROFESSIONAL PROGRAMMER ANALYST 08/28/2020 Generalized anxiety disorder Establis hed Patient with Eufemia Short LISWS 07/25/2020 Mild recurrent major depression BH Estab lished Patient with Eufemia Short LISWS 07/25/2020 Body mass index Medical New Patient with Yohan Blanca PROFESSIONAL PROGRAMMER ANALYST 07/25/2020 Diabetes Risk Test Score was five score 07/25/2020 Medical New Patient with Yohan Blanca PROFESSIONAL PROGRAMMER ANALYST 07/25/2020 Morbid obesity Medical New Patient with Yohan Blanca PROFESSIONAL PROGRAMMER ANALYST 07/25/2020 Diagnosis Paresthesia of both hands Weakness of both arms Other musculoskeletal symptoms referable to limbs Diagnosis Family history of COPD (chronic obstructive pulmonary disease) Family history of other chronic respiratory conditions Paresthesia of left upper and lower extremity Diagnosis Paresthesia of both hands Weakness of both arms Other musculoskeletal symptoms referable to limbs Diagnosis Pre-op testing Preoperative examination, unspecified Findings Encounter Date Body mass index [Body mass i ndex [BMI] 45.0-49.9, adult] Medical Established Patient with Yohan Blanca PROFESSIONAL PROGRAMMER ANALYST 09/25/2020 Mild recurrent major depression Medical Established Patient with Yohan Blanca PROFESSIONAL PROGRAMMER ANALYST 09/25/2020 Morbid obesity Medical Established Patient with Yohan Blanca PROFESSIONAL PROGRAMMER ANALYST 09/25/2020 Generalized anxiety disorder BH Establis hed Patient with Eufemia Short LISWS 08/28/2020 Mild recurrent major depression BH Estab lished Patient with Eufemia Short LISWS 08/28/2020 Allergic bronchitis Medical Established Patient with Yohan Blanca PROFESSIONAL PROGRAMMER ANALYST 08/28/2020 Assessment of snoring Medical Establishe d Patient with Yohan Blanca PROFESSIONAL PROGRAMMER ANALYST 08/28/2020 Body mass index [Body mass i ndex [BMI] 45.0-49.9, adult] Medical Established Patient with Yohan Blanca PROFESSIONAL PROGRAMMER ANALYST 08/28/2020 Mild recurrent major depression Medical Established Patient with Yohan Blanca PROFESSIONAL PROGRAMMER ANALYST 08/28/2020 Morbid obesity Medical Established Patient with Yohan Blanca PROFESSIONAL PROGRAMMER ANALYST 08/28/2020 Generalized anxiety disorder BH Establis hed Patient with Eufemia Short LISWS 07/25/2020 Mild recurrent major depression BH Estab lished Patient with Eufemia Short LISWS 07/25/2020 Body mass index Medical New Patient with Yohan Blanca PROFESSIONAL PROGRAMMER ANALYST 07/25/2020 Diabetes Risk Test Score was five score 07/25/2020 Medical New Patient with Yohan Blanca PROFESSIONAL PROGRAMMER ANALYST 07/25/2020 Morbid obesity Medical New Patient with Yohan Blanca PROFESSIONAL PROGRAMMER ANALYST 07/25/2020 Diagnosis Mild intermittent asthma with exacerbation- Primary Unspecified asthma, with exacerbation History of Present Illness * Samantha Dukes RN - 11/16/2019 11:00 AM EDT Discharge instructions given to patient and patients mother. Both verbalize understanding and denies any questions at this time. Discharge Criteria Inpatients must meet Criteria 1 through 7. All other patients are either YES or N/A. If a NO is chosen then Anesthesia or Surgeon must be notified. 1. Minimum 30 minutes after last dose of sedative medication, minimum 120 minutes after last dose of reversal agent. Yes 2. Systolic BP stable within 20 mmHg for 30 minutes & systolic BP between 90 & 180 or within 10 mmHg of baseline. Yes 3. Pulse between 60 and 100 or within 10 bpm of baseline. Yes 4. Spontaneous respiratory rate >/= 10 per minute. Yes 5. SaO2 >/= 95 or >/= baseline. Yes 6. Able to cough and swallow or return to baseline function. Yes 7. Alert and oriented or return to baseline mental status. Yes 8. Demonstrates controlled, coordinated movements, ambulates with steady gait, or return to baseline activity function. Yes 9. Minimal or no pain or nausea, or at a level tolerable and acceptable to patient. Yes 10. Takes and retains oral fluids as allowed. Yes 11. Procedural / perioperative site stable. Minimal or no bleeding. Yes 12. If GI endoscopy procedure, minimal or no abdominal distention or passing flatus. N/A 13. Written discharge instructions and emergency telephone number provided. Yes 14. Accompanied by a responsible adult. Yes * Shayy Singletary RN - 11/16/2019 9:50 AM EDT Report given to Samantha Dukes RN. Surgical incisions covered with a mastisol and steri strips, telfa tegaderms. * Samantha Dukes RN - 11/04/2019 9:37 AM EDT Patient instructed on the pre-operative, intra-operative, and post-operative process. Patient's surgery arrival time to the hospital and surgery start time confirmed for the day of surgery. Patient instructed on NPO status. Medication instructions reviewed with patient. Pre operative instruction sheet reviewed and given to patient via telephone. Pt instructed to stop taking all asa products for 7days prior to surgery and to not take any medications the morning of surgery. Covid testing set up. documented in this encounter History of Present Illness not supported for this document type No History of Present Illness Recorded History of Present Illness not supported for this document type No History of Present Illness Recorded History of Present Illness not supported for this document type No History of Present Illness Recorded History of Present Illness not supported for this document type No History of Present Illness Recorded History of Present Illness not supported for this document type No History of Present Illness Recorded Reason for Referral Status Reason Specialty Diagnoses / Procedures Re ferred By Contact Referred To Contact Closed Diagnoses Shortness of breath Procedures Full PFT Study With Bronchodilator Yohan James APRN - BANK APPRAISER [address] [place] [id number] Status Reason Specialty Diagnoses / Procedures Referre d By Contact Referred To Contact Closed Radiology Diagnoses Paresthesia of both hands Weakness of both arms Procedures MRI CERVICAL SPINE W WO CONTRAST Quita Figueroa MD [address] [place] [address] [address] [place] [address] Status Reason Specialty Diagnoses / Procedures Referre d By Contact Referred To Contact Closed Radiology Diagnoses Paresthesia of both hands Weakness of both arms Procedures MRI BRAIN WO CONTRAST Quita Figueroa MD [address] [place] [address] [address] [place] [phone] [facility] [address] [place] [address] Status Reason Specialty Diagnoses / Procedures Referre d By Contact Referred To Contact Open Radiology Diagnoses RLQ abdominal pain Procedures US DUP ABD PEL RETRO SCROT LIMITED Willie Tello MD [address] [place] [address] [address] [place] [phone] Status Reason Specialty Diagnoses / Procedures Referre d By Contact Referred To Contact Open Radiology Diagnoses RLQ abdominal pain Procedures US NON OB TRANSVAGINAL Willie Tello MD [address] [place] [address] [address] [place] [phone] Status Reason Specialty Diagnoses / Procedures Referre d By Contact Referred To Contact Closed Radiology Diagnoses Edema, unspecified type Pain of lower extremity, unspecified laterality Procedures VL DUP LOWER EXTREMITY VENOUS BILATERAL Twyla Quiros, STRATIGRAPHER - PROFESSIONAL PROGRAMMER ANALYST [address] [place] [address] Specialty Diagnoses / Procedures Referred By Contac t Referred To Contact Radiology Diagnoses Lumbar radiculitis Lumbosacral spondylosis with radiculopathy DDD (degenerative disc disease), lumbar Lumbar pain Procedures MRI LUMBAR SPINE WO CONTRAST Deborah Marquis, STRATIGRAPHER - PROFESSIONAL PROGRAMMER ANALYST [address] [place] [address] Referral ID Status Reason Start Date Expiration Date Visits Re quested Visits Authorized [id number] Closed 12/13/2021 01/11/2022 1 1 Specialty Diagnoses / Procedures Referred By Contact Referred To Contact Physical Medicine & Rehabilitation Diagnoses Lumbar radiculopathy Main Huizar MBBS [address] [facility] [address] [place] [address] Referral ID Status Reason Start Date Expiration Date V isits Requested Visits Authorized [id number] New Request 02/12/2022 03/09/2023 1 1 Specialty Diagnoses / Procedures Referred By Contac t Referred To Contact Diagnoses Facet arthropathy, lumbar Yudi Reyes MD [address] [place] [address] Referral ID Status Reason Start Date Expiration Date V isits Requested Visits Authorized [id number] New Request 03/07/2022 04/01/2023 1 1 Scheduling Instructions L4-L5 Facet; L5-S1 Facet; bilateral with Pollo Specialty Diagnoses / Procedures Referred By Contac t Referred To Contact Pulmonology Diagnoses COVID-19 virus infection Jarvis Rojas MD [address] [place] [address] Jr Pedraza, [address] [place] [address] Referral ID Status Reason Start Date Expiration Date V isits Requested Visits Authorized [id number] Open Specialty Services Required 07/21/2022 07/21/2023 1 1 Scheduling Instructions Olga [facility] - Jr Pedraza [address] [facility], [address] [place] [address] Question Answer My clinical question is: Pulmonary nodule, cause uncertain; Current COVID-19 infection Comments For more efficient patient care with the [facility], consider ordering a chest X-ray and PFT if clinically appropriate. Specialty Diagnoses / Procedures Referred By Contac t Referred To Contact Diagnoses Palpitations Procedures Cardiac event monitor Yohan James, STRATIGRAPHER - BANK APPRAISER [address] [place] [address] Referral ID Status Reason Start Date Expiration Date Visits Re quested Visits Authorized [id number] Closed 09/03/2022 09/03/2023 1 1 Specialty Diagnoses / Procedures Referred By Contac t Referred To Contact Cardiology Diagnoses Chest pressure Heart palpitations PVC (premature ventricular contraction) Lightheaded R07.89 (ICD-10-CM) - Chest pressure Procedures ECHO Complete 2D W Doppler W Color [place] ECHO TTHRC R-T 2D W/WOM-MODE COMPL SPEC&COLR D [address]2296 - [place] ECHO TTHRC R-T 2D W/WOM-MODE COMPL SPEC&COLR D Jazmín Brambila PA-C [address] [place] [id number] Referral ID Status Reason Start Date Expiration Date Visits Re quested Visits Authorized [id number] Closed 10/23/2022 10/23/2023 1 1 Specialty Diagnoses / Procedures Referred By Contac t Referred To Contact Cardiology Diagnoses Chest pressure Heart palpitations PVC (premature ventricular contraction) Lightheaded R07.89 (ICD-10-CM) - Chest pressure Procedures CARDIAC STRESS TEST EXERCISE ONLY [place] CV STRS TST XERS&/OR RX CONT ECG TRCG ONLY 10364 - [place] CV STRS TST XERS&/OR RX CONT ECG TRCG ONLY Jazmín Brambila PA-C [address] [place] [id number] Referral ID Status Reason Start Date Expiration Date Visits Re quested Visits Authorized [id number] Closed 10/23/2022 10/23/2023 1 1 Specialty Diagnoses / Procedures Referred By Contac t Referred To Contact Diagnoses Chest pressure Heart palpitations PVC (premature ventricular contraction) Lightheaded R07.89 (ICD-10-CM) - Chest pressure Procedures Tilt table test [place] CARDIOVASCULAR FUNCTION EVAL W/TILT TABLE W/MNTR [address] - [place] CARDIOVASCULAR FUNCTION EVAL W/TILT TABLE W/MNTR Jazmín Brambila PA-C [address] [place] [address] Referral ID Status Reason Start Date Expiration Date V isits Requested Visits Authorized [id number] Not Required - RTA 10/30/2022 10/30/2023 1 1 Specialty Diagnoses / Procedures Referred By Annia zhou Referred To Contact Radiology Diagnoses Multiple lung nodules on CT Procedures CT CHEST LOW DOSE (LDCT) [place], STRATIGRAPHER - PROFESSIONAL PROGRAMMER ANALYST [address] [place] [address] Referral ID Status Reason Start Date Expiration Date Visits Re quested Visits Authorized [id number] Closed 05/26/2024 06/25/2024 1 1 Instructions Instructions not supported for this document type No Instructions Recorded Instructions not supported for this document type No Instructions Recorded Instructions not supported for this document type No Instructions Recorded Instructions not supported for this document type No Instructions Recorded Instructions not supported for this document type No Instructions Recorded Review of System Review of Systems not supported for this document type No Review of Systems Recorded Review of Systems not supported for this document type No Review of Systems Recorded Review of Systems not supported for this document type No Review of Systems Recorded Review of Systems not supported for this document type No Review of Systems Recorded Review of Systems not supported for this document type No Review of Systems Recorded Physical Exam Physical Exam not supported for this document type No Physical Exam Recorded Physical Exam not supported for this document type No Physical Exam Recorded Physical Exam not supported for this document type No Physical Exam Recorded Physical Exam not supported for this document type No Physical Exam Recorded Physical Exam not supported for this document type No Physical Exam Recorded Physical Exam not supported for this document type No Physical Exam Recorded Physical Exam not supported for this document type No Physical Exam Recorded Physical Exam not supported for this document type No Physical Exam Recorded Physical Exam not supported for this document type No Physical Exam Recorded Physical Exam not supported for this document type No Physical Exam Recorded Physical Exam not supported for this document type No Physical Exam Recorded Physical Exam not supported for this document type No Physical Exam Recorded Physical Exam not supported for this document type No Physical Exam Recorded Physical Exam not supported for this document type No Physical Exam Recorded Physical Exam not supported for this document type No Physical Exam Recorded Physical Exam not supported for this document type No Physical Exam Recorded Physical Exam not supported for this document type No Physical Exam Recorded Physical Exam not supported for this document type No Physical Exam Recorded Physical Exam not supported for this document type No Physical Exam Recorded Physical Exam not supported for this document type No Physical Exam Recorded Physical Exam not supported for this document type No Physical Exam Recorded Physical Exam not supported for this document type No Physical Exam Recorded Physical Exam not supported for this document type No Physical Exam Recorded Physical Exam not supported for this document type No Physical Exam Recorded Physical Exam not supported for this document type No Physical Exam Recorded Physical Exam not supported for this document type No Physical Exam Recorded Physical Exam not supported for this document type No Physical Exam Recorded Physical Exam not supported for this document type No Physical Exam Recorded Physical Exam not supported for this document type No Physical Exam Recorded Physical Exam not supported for this document type No Physical Exam Recorded Additional Source Comments INFORMATION SOURCE (unrecogn ized section and content) DATE CREATED AUTHOR 12/29/2017 [facility] DATE CREATED AUTHOR AUTHOR'S ORGANIZ ATION 01/25/2022 [facility] DATE CREATED AUTHOR AUTHOR'S ORGANIZ ATION 07/04/2022 [facility] DATE CREATED AUTHOR AUTHOR'S ORGANIZ ATION 07/12/2023 [facility] DATE CREATED AUTHOR AUTHOR'S ORGANIZ ATION 10/24/2023 [facility] DATE CREATED AUTHOR AUTHOR'S ORGANIZ ATION 01/07/2024 [facility] DATE CREATED AUTHOR AUTHOR'S ORGANIZ ATION 07/21/2024 [facility] DATE CREATED AUTHOR AUTHOR'S ORGANIZ ATION 09/16/2024 [facility] DATE CREATED AUTHOR AUTHOR'S ORGANIZ ATION 09/28/2024 [facility] Reason for Visit (unrecogniz ed section and content) Reason Comments Cough ongoing since Thursday , productive cough Generalized Body Aches Status Reason Specialty Diagnoses / Procedures Referre d By Contact Referred To Contact Diagnoses Combined abdominal and pelvic pain ABDOMINAL/ PELVIC PAIN Procedures [place] LAP,DIAGNOSTIC ABDOMEN LAPAROSCOPY PELVISCOPY-POSSIBLE OPERATIVE Willie Tello MD [address] [place] [address] [facility] Reason Comments Abdominal Pain pt states she has be en having lower abd pain for 4-6 months. Pt was to have a lap tomorrow to check for endometriosis Reason Comments Back Pain left side back pain for past few days. Reason Comments Leg Pain pt states she trippe d on the concrete and now her lt back and leg hurts her. Back Pain Reason Comments Chest Pain left sided, onset 10 days ago, seen in ER for same complaint last week states pain is no better Shortness of Breath states ongoing since having COVID in 06/19 Status Reason Specialty Diagnoses / Procedures Re ferred By Contact Referred To Contact Closed Diagnoses Shortness of breath Procedures Full PFT Study With Bronchodilator Yohan James, STRATIGRAPHER - BANK APPRAISER [address] [place] [address] Reason Comments Abdominal Pain RLQ and mid lower ab d pain, onset x 3 days Status Reason Specialty Diagnoses / Procedures Referre d By Contact Referred To Contact Closed Radiology Diagnoses Paresthesia of both hands Weakness of both arms Procedures MRI CERVICAL SPINE W WO CONTRAST Quita Figueroa MD [address] [place] [address] [address] [place] [address] Status Reason Specialty Diagnoses / Procedures Referre d By Contact Referred To Contact Closed Radiology Diagnoses Paresthesia of both hands Weakness of both arms Procedures MRI BRAIN WO CONTRAST Quita Figueroa MD [address] [place] [address] [address] [place] [address] [facility] Mri [address] [place] [address] Reason Comments Wheezing pt states onset this am. Pt states she tested positive for Covid on 06/19 Status Reason Specialty Diagnoses / Procedures Referre d By Contact Referred To Contact Open Radiology Diagnoses RLQ abdominal pain Procedures US PELVIS COMPLETE US pelvis complete transvaginal non OB Willie Tello MD [address] [place] [address] [address] [place] [address] Reason Comments Abdominal Pain started this am. Emesis emesis x 4 today Constipation passed difficult lori d stool today Status Reason Specialty Diagnoses / Procedures Referre d By Contact Referred To Contact Diagnoses Right carpal tunnel syndrome RIGHT CARPEL TUNNEL SYNDROME Procedures [place] WRIST ARTHROSCOP,RELEASE XVERS LIG CARPAL TUNNEL RELEASE ENDOSCOPIC Leonard Randall MD [address] [place] [address] [facility] Status Reason Specialty Diagnoses / Procedures Referre d By Contact Referred To Contact Closed Radiology Diagnoses Edema, unspecified type Pain of lower extremity, unspecified laterality Procedures VL DUP LOWER EXTREMITY VENOUS BILATERAL Twyla Quiros, STRATIGRAPHER - PROFESSIONAL PROGRAMMER ANALYST [address] [place] [address] Reason Comments Leg Swelling Left lower leg and f oot. Onset 2 days ago. Pt states she was here in January with foot swelling and told to return for any swelling due to elevated D Dimer at that time. Abscess Right upper arm/armp it Reason Comments Back Pain pt c/o low back pain , onset last night before bed. Pt states was worse when she woke up this am Reason Comments Back Pain low to mid back pain Urinary Frequency Reason Comments Head Injury slipped on ice and h it head on steps around 2200, complains of head pain and multiple episodes of vomiting since then Reason Comments Hip Pain left, fell and hit o n table around 6pm, large area of bruising present Specialty Diagnoses / Procedures Referred By Contac t Referred To Contact Radiology Diagnoses Lumbar radiculitis Lumbosacral spondylosis with radiculopathy DDD (degenerative disc disease), lumbar Lumbar pain Procedures MRI LUMBAR SPINE WO CONTRAST Deborah Marquis, STRATIGRAPHER - PROFESSIONAL PROGRAMMER ANALYST [address] [id number] Referral ID Status Reason Start Date Expiration Date Visits Re quested Visits Authorized [id number] Closed 12/13/2021 01/11/2022 1 1 Reason Comments Pain Specialty Diagnoses / Procedures Referred By Contac t Referred To Contact Orthopaedics Diagnoses Lumbar radiculopathy Low back pain, unspecified back pain laterality, unspecified chronicity, unspecified whether sciatica present Jalil Pandya MD [address] [facility] [address] [place] [address] [facility] [address] [place] [address] Referral ID Status Reason Start Date Expiration Date V isits Requested Visits Authorized [id number] Pending Review 02/04/2022 03/01/2023 1 1 Reason Comments New Patient Pain Specialty Diagnoses / Procedures Referred By Contac t Referred To Contact Spine Diagnoses Lumbar radiculopathy Huizar, Main K, LIZYBS [address] [facility] [address] [place] [address] Referral ID Status Reason Start Date Expiration Date V isits Requested Visits Authorized [id number] New Request 02/12/2022 03/09/2023 1 1 Reason Comments Back Pain Slipped and fell at home Reason Comments Cough Nausea, vomiting and cough past few days. Given zofran at urgent care. Unable to keep anything down. Reason Comments Shortness of Breath Cough Pt arrives with c/o feeling SOB and cough since waking today. Pt states symptoms present for 2 hours. Pt denies any at home treatment Reason Comments Shortness of Breath Ongoing dyspnea, cou gh, chest tightness at least one week. Denies fever Reason Comments Chest Pain Onset 3 weeks Shortness of Breath Uses inhalers with n o relief Specialty Diagnoses / Procedures Referred By Contac t Referred To Contact Diagnoses Palpitations Procedures Cardiac event monitor Yohan James APRN - [employer]ANK [employer] [address] [place] [address] Referral ID Status Reason Start Date Expiration Date Visits Re quested Visits Authorized [id number] Closed 09/03/2022 09/03/2023 1 1 Specialty Diagnoses / Procedures Referred By Contac t Referred To Contact Physical Therapist / Physical Therapy Diagnoses Spondylosis without myelopathy or radiculopathy, lumbar region Palpitation Procedures OH OFFICE/OUTPATIENT ESTABLISHED HIGH MDM 40-54 MIN Yohan James APRN - BANK [employer] [address] [place] [address] D[facility] PT Referral ID Status Reason Start Date Expiration Date V isits Requested Visits Authorized [id number] Not Required - RTA 10/09/2022 10/09/2023 1 1 Reason Comments Chest Pain INT sharp CP x coupl e days Leg Swelling Pt reports Bilateral fot/ ankle pain and swelling Specialty Diagnoses / Procedures Referred By Contac t Referred To Contact Cardiology Diagnoses Chest pressure Heart palpitations PVC (premature ventricular contraction) Lightheaded R07.89 (ICD-10-CM) - Chest pressure Procedures ECHO Complete 2D W Doppler W Color [place] ECHO TTHRC R-T 2D W/WOM-MODE COMPL SPEC&COLR D [id number] - [place] ECHO TTHRC R-T 2D W/WOM-MODE COMPL SPEC&COLR D Jazmín Brambila PA-C [address] [place] [id number] Referral ID Status Reason Start Date Expiration Date Visits Re quested Visits Authorized [id number] Closed 10/23/2022 10/23/2023 1 1 Specialty Diagnoses / Procedures Referred By Annia zhou Referred To Contact Cardiology Diagnoses Chest pressure Heart palpitations PVC (premature ventricular contraction) Lightheaded R07.89 (ICD-10-CM) - Chest pressure Procedures CARDIAC STRESS TEST EXERCISE ONLY [place] CV STRS TST XERS&/OR RX CONT ECG TRCG ONLY [id number] - [place] CV STRS TST XERS&/OR RX CONT ECG TRCG ONLY Jazmín Brambila PA-C [address] [place] [id number] Referral ID Status Reason Start Date Expiration Date Visits Re quested Visits Authorized [id number] Closed 10/23/2022 10/23/2023 1 1 Specialty Diagnoses / Procedures Referred By Annia zhou Referred To Contact Diagnoses Chest pressure Heart palpitations PVC (premature ventricular contraction) Lightheaded R07.89 (ICD-10-CM) - Chest pressure Procedures Tilt table test [place] CARDIOVASCULAR FUNCTION EVAL W/TILT TABLE W/MNTR [address]88[address] - [place] CARDIOVASCULAR FUNCTION EVAL W/TILT TABLE W/MNTR Jazmín Brambila PA-C [address] [place] [id number] Referral ID Status Reason Start Date Expiration Date V isits Requested Visits Authorized [id number] Not Required - RTA 10/30/2022 10/30/2023 1 1 Reason Comments Leg Swelling Bilateral, concern f or blood clot Reason Comments Chest Pain Shortness of Breath Pt to ED from home w ith c/o Chest Pain, Shortness of Breath, and Cough.Onset of symptoms x5.5 hours. Pt states that she's been using her inhalerwithout relief. Also reports nausea, vomiting, diarrhea, and headache. Cough Headache Dizziness Emesis Nausea Specialty Diagnoses / Procedures Referred By Annia zhou Referred To Contact Radiology Diagnoses Multiple lung nodules on CT Procedures CT CHEST LOW DOSE (LDCT) [place], STRATIGRAPHER - PROFESSIONAL PROGRAMMER ANALYST [address] [place] [address] Referral ID Status Reason Start Date Expiration Date Visits Re quested Visits Authorized [id number] Closed 05/26/2024 06/25/2024 1 1 Reason Comments Follow-up Pt would like to dis cuss momustaphajaro or kwabena. No other concerns per patient. Reason Comments Establish Care Medical History (unrecognize d section and content) Description History of gynecologic disorder PCOS, en dometriosis 07/25/2020 Evaluations & Outcomes (unre cognized section and content) Includes: Evaluations & Outcomes for active GoalsNo Outcomes Recorded Includes: Evaluations & Outcomes for active GoalsNo Outcomes Recorded Includes: Evaluations & Outcomes for active GoalsNo Outcomes Recorded Includes: Evaluations & Outcomes for active GoalsNo Outcomes Recorded Includes: Evaluations & Outcomes for active GoalsNo Outcomes Recorded Ordered Prescriptions (unrec ognized section and content) Prescription Sig Dispensed Refills Start Date End Da te ondansetron (ZOFRAN-ODT) 4 MG disintegrating tablet Take 1 tablet by mouth 3 times daily as needed for Nausea or Vomiting 21 tablet 0 08/29/2020 Prescription Sig Dispensed Refills Start Date End Da te methylPREDNISolone (MEDROL, ANTONY,) 4 MG tablet Take by mouth. 1 kit 0 07/09/2020 07/15/2020 Prescription Sig Dispensed Refills Start Date End Da te ondansetron (ZOFRAN ODT) 4 MG disintegrating tablet Take 1 tablet by mouth every 8 hours as needed for Nausea 20 tablet 0 01/11/2021 dicyclomine (BENTYL) 10 MG capsule Take 1 capsule by mouth every 6 hours as needed (cramps) 20 capsule 0 01/11/2021 Prescription Sig Dispensed Refills Start Date End Da te HYDROcodone-acetaminophen (NORCO) 5-325 MG per tabletIndications:Right carpal tunnel syndrome Take 1 tablet by mouth every 6 hours as needed for Pain for up to 3 days. 1-2 tabs by mouth every 4-6 hours as needed for pain. 8 tablet 0 01/23/2021 01/26/2021 Prescription Sig Dispensed Refills Start Date End Da te doxycycline hyclate (VIBRA-TABS) 100 MG tablet Take 1 tablet by mouth 2 times daily for 7 days 14 tablet 0 02/25/2021 03/04/2021 Prescription Sig Dispensed Refills Start Date End Da te tiZANidine (ZANAFLEX) 4 MG tablet Take 1 tablet by mouth every 8 hours as needed (back pain and spasms) 10 tablet 0 03/25/2021 methylPREDNISolone (MEDROL, ANTONY,) 4 MG tablet Take by mouth. 1 kit 0 03/25/2021 03/31/2021 Prescription Sig Dispensed Refills Start Date End Da te nitrofurantoin, macrocrystal-monohydrate , (MACROBID) 100 MG capsule Take 1 capsule by mouth 2 times daily for 5 days 10 capsule 0 04/08/2021 04/13/2021 ibuprofen (IBU) 600 MG tablet Take 1 tablet by mouth every 6 hours as needed for Pain 30 tablet 0 04/08/2021 Prescription Sig Dispensed Refills Start Date End Da te dicyclomine (BENTYL) 10 MG capsule Take 1 capsule by mouth 4 times daily 30 capsule 0 06/12/2022 promethazine (PHENERGAN) 25 MG tablet Take 1 tablet by mouth every 6 hours as needed for Nausea WARNING: May cause drowsiness. May impair ability to operate vehicles or machinery. Do not use in combination with alcohol. 20 tablet 0 06/12/2022 06/19/2022 Prescription Sig Dispensed Refills Start Date End Da te albuterol sulfate HFA (VENTOLIN HFA) 108 (90 Base) MCG/ACT inhaler Inhale 2 puffs into the lungs 4 times daily as needed for Wheezing 18 g 5 07/06/2022 predniSONE (DELTASONE) 20 MG tablet Take 1 tablet by mouth 2 times daily for 5 days 10 tablet 0 07/06/2022 07/11/2022 benzonatate (TESSALON) 100 MG capsule Take 1 capsule by mouth 3 times daily as needed for Cough 15 capsule 0 07/06/2022 07/11/2022 Prescription Sig Dispensed Refills Start Date End Da te predniSONE (DELTASONE) 50 MG tablet Take 1 tablet by mouth daily for 5 days 5 tablet 0 07/14/2022 07/19/2022 azithromycin (ZITHROMAX Z-ANTONY) 250 MG tabletIndications:Bronchi tis Take 2 tablets (500 mg) on Day 1, and then take 1 tablet (250 mg) on days 2 through 5. 1 packet 0 07/14/2022 07/18/2022 Prescription Sig Dispensed Refills Start Date End Da te nirmatrelvir/ritonavir (PAXLOVID) 20 x 150 MG & 10 x 100MG TBPK Take 3 tablets (two 150 mg nirmatrelvir and one 100 mg ritonavir tablets) by mouth every 12 hours for 5 days. 30 tablet 0 07/21/2022 07/26/2022 Prescription Sig Dispensed Refills Start Date End Da te predniSONE (DELTASONE) 50 MG tablet Take 1 tablet by mouth daily for 5 days 5 tablet 0 10/17/2022 10/22/2022 hydroCHLOROthiazide (HYDRODIURIL) 25 MG tablet Take 0.5 tablets by mouth every morning for 6 days 3 tablet 0 10/17/2022 10/23/2022 Prescription Sig Dispensed Refills Start Date End Da te brompheniramine-pseudoephe drine-DM 2-30-10 MG/5ML syrup Take 5 mLs by mouth 4 times daily as needed for Cough 120 mL 0 06/21/2023 ketorolac (TORADOL) 10 MG tablet Take 1 tablet by mouth every 8 hours as needed for Pain 15 tablet 0 06/21/2023 Scheduled Active and Recently Administ ered Medications (unrecognized section and content) Medication Order 01/09/2021 01/10/2021 01/11/2021 0.9 % sodium chloride bolus (COMPLETED) 1,000 mL, Intravenous, at 1,000 mL/hr, Administer over 1 Hours, ONCE, On Elidia 01/10/21 at 2345, For 1 dose 2358 (New Bag - Provider: Delroy Mitchell RN) 0100 (Stopped - Provider: Delroy Mitchell RN) fentaNYL (SUBLIMAZE) injection 50 mcg (COMPLETED) 50 mcg, Intravenous, ONCE, On Elidia 01/10/21 at 2345, For 1 dose, If oral and IV narcotics ordered, use oral first and only use IV if oral is ineffective or cannot take oral. Do Not give oral and IV within 1 hour of each other unless specifically ordered. 2356 (Given - Provider: Delroy Mitchell, ALYSSA) ondansetron (ZOFRAN) injection 4 mg (COMPLETED) 4 mg, Intravenous, ONCE, On Elidia 01/10/21 at 2345, For 1 dose 2356 (Given - Provider: Delroy Mitchell RN) ondansetron (ZOFRAN) tablet 4 mg (COMPLETED) 4 mg, Oral, ONCE, On Thu01/11/21 at 0200, For 1 dose 0208 (Given - Provid er: Delroy Mitchell RN) PRN Medication Order 01/09/2021 01/10/2021 01/11/2021 iopamidol (ISOVUE-370) 76 % injection 75 mL (COMPLETED) 75 mL, Intravenous, IMG ONCE PRN, Other, Starting on Thu01/11/21 at 0041, For 1 dose 0042 (Given - Provid er: Alia Rolon) Scheduled Medication Order 01/21/2021 01/22/2021 01/23/2021 acetaminophen (TYLENOL) tablet 650 mg (COMPLETED) 650 mg, Oral, ONCE, On Thu01/23/21 at 0630, For 1 dose, Maximum dose of acetaminophen is 4000 mg from all sources in 24 hours., Pre-op (day of surgery) 0638 (Given - Provid er: Monica Cardenas RN) ceFAZolin (ANCEF) 3000 mg in dextrose 5 % 100 mL IVPB (COMPLETED) 3,000 mg, Intravenous, ONCE, 1 dose, On Thu01/23/21 at 0645, Pre-op (day of surgery) 0735 (Given - Provid er: NORAH Wade CRNA) Continuous Medication Order 01/21/2021 01/22/2021 01/23/2021 lactated ringers infusion Intravenous, at 100 mL/hr, CONTINUOUS, Starting on Thu01/23/21 at 0630, Pre-op (day of surgery) 0643 (New Bag - Prov ider: Monica Cardenas RN)0732 (NoRateChange - Provider: Leonard Randall MD)0807 (Paused - Provider: NORAH Wade CRNA - Comment: Switch to gravity)0808 (Restarted - Provider: NORAH Wade CRNA)0849 (Stopped - Provider: Nydia Richardson RN) PRN Medication Order 01/21/2021 01/22/2021 01/23/2021 bupivacaine (PF) (MARCAINE) 0.5 % injection (CANCELED) PRN, Starting on Thu01/23/21 at 0747, Intra-op 0747 (Given - Provid er: Leonard Randall MD) HYDROcodone-acetaminophen (NORCO) 5-325 MG per tablet 1 tablet 1 tablet, Oral, ONCE PRN, Pain Moderate (4-6), Pain Severe (7-10), Starting on Thu01/23/21 at 0716, For 1 dose, PHASE II, PACU only ondansetron (ZOFRAN) injection 4 mg 4 mg, Intravenous, ONCE PRN, Nausea, Starting on Thu01/23/21 at 0716, For 1 dose, Initial antiemetic therapy., PACU only Scheduled Medication Order 03/23/2021 03/24/2021 03/25/2021 diazePAM (VALIUM) tablet 2 mg (COMPLETED) 2 mg, Oral, ONCE, On Thu03/25/21 at 2030, For 1 dose 2123 (Given - Provid er: Mike Brown RN) ketorolac (TORADOL) injection 30 mg (COMPLETED) 30 mg, IntraMUSCular, ONCE, On Thu03/25/21 at 2030, For 1 dose, Do not administer for more than 5 days. 2123 (Given - Provid er: Mike Brown RN) Scheduled Medication Order 04/06/2021 04/07/2021 04/08/2021 0.9 % sodium chloride bolus (COMPLETED) 1,000 mL, IntraVENous, at 1,000 mL/hr, Administer over 1 Hours, ONCE, On Thu04/08/21 at 1515, For 1 dose 1630 (New Bag - Prov ider: Pepper Avery, ALYSSA)1730 (Stopped - Provider: Pepper Avery RN) ketorolac (TORADOL) injection 30 mg 30 mg, IntraVENous, ONCE, On Thu04/08/21 at 1315, For 1 dose, Do not administer for more than 5 days. PRN Medication Order 04/06/2021 04/07/2021 04/08/2021 iopamidol (ISOVUE-370) 76 % injection 75 mL (COMPLETED) 75 mL, IntraVENous, IMG ONCE PRN, Other, Starting on Thu04/08/21 at 1527, For 1 dose 1529 (Given - Provid er: Siena Hess) Scheduled Medication Order 08/02/2021 08/03/2021 08/04/2021 acetaminophen (TYLENOL) tablet 1,000 mg (COMPLETED) 1,000 mg, Oral, ONCE, On 08/04/21 at 0230, For 1 dose, Maximum dose of acetaminophen is 4000 mg from all sources in 24 hours. 0232 (Given - Provid er: Sweetie Cain RN) lactated ringers infusion 1,000 mL (COMPLETED) 1,000 mL, IntraVENous, at 1,000 mL/hr, ONCE, On 08/04/21 at 0100, For 1 dose 0110 (New Bag - Prov ider: Sweetie Cain RN)0233 (Stopped - Provider: Sweetie Cain RN) ondansetron (ZOFRAN) injection 4 mg (COMPLETED) 4 mg, IntraVENous, ONCE, On 08/04/21 at 0100, For 1 dose 0109 (Given - Provid er: Sweetie Cain RN) Scheduled Medication Order 11/10/2021 11/11/2021 11/12/2021 acetaminophen (TYLENOL) tablet 1,000 mg (COMPLETED) 1,000 mg, Oral, ONCE, 1 dose, On Thu11/12/21 at 0230 0222 (Given - Provid er: Christine Bain RN) ketorolac (TORADOL) injection 30 mg (COMPLETED) Ketorolac is contraindicated in patients with advanced renal impairment and in patients at risk of renal failure due to volume depletion. For 65 years of age and older OR weight less than 50 kg, use 15 mg IV every 6 hours; MAX dose: 60 mg/day. Dose greater than 30 mg must be administered via intramuscular route. Do not administer for more than 5 days., 30 mg, IntraMUSCular, ONCE, 1 dose, On Thu11/12/21 at 0230 0221 (Given - Provid er: Christine Bain RN) lidocaine 4 % external patch 1 patch 1 patch, TransDERmal, Administer over 12 Hours, DAILY, First dose on Thu11/12/21 at 0230, Apply patch to left hip region. Patch may remain in place for up to 12 hours in any 24 hour period. 0240 (Patch Applied - Provider: Veronica Weldon RN)1440 (Due: Patch Removed - Provider: Veronica Weldon RN) Scheduled Medication Order 04/29/2022 04/30/2022 05/01/2022 acetaminophen (TYLENOL) tablet 650 mg (COMPLETED) 650 mg, Oral, ONCE, 1 dose, On Elidia 05/01/22 at 1815, Maximum dose of acetaminophen is 4000 mg from all sources in 24 hours. 1804 (Given - Provid er: Maira Zamudio RN) Scheduled Medication Order 06/10/2022 06/11/2022 06/12/2022 0.9 % sodium chloride bolus (COMPLETED) 1,000 mL, IntraVENous, at 1,000 mL/hr, Administer over 1 Hours, ONCE, On Elidia 06/12/22 at 1715, For 1 dose 1730 (New Bag - Prov ider: Mike Brown RN)1933 (Stopped - Provider: Mike Brown RN) famotidine (PEPCID) 20 mg in sodium chloride (PF) 0.9 % 10 mL injection (COMPLETED) 20 mg, IntraVENous, ONCE, 1 dose, On Elidia 06/12/22 at 1715, IV Push over minimum of 2 minutes - Dilute with 10 mL NS 1731 (Given - Provid er: Mike Brown RN) ondansetron (ZOFRAN) injection 4 mg (COMPLETED) 4 mg, IntraVENous, ONCE, 1 dose, On Elidia 06/12/22 at 1715 1730 (Given - Provid er: Mike Brown RN) PRN Medication Order 06/10/2022 06/11/2022 06/12/2022 iopamidol (ISOVUE-370) 76 % injection 75 mL (COMPLETED) 75 mL, IntraVENous, IMG ONCE PRN, 1 dose, Starting on Elidia 06/12/22 at 1814, Until Elidia 06/12/22 at 1816, Other 1816 (Given - Provid er: Melisa Kaufman) Scheduled Medication Order 07/04/2022 07/05/2022 07/06/2022 albuterol (PROVENTIL) nebulizer solution 2.5 mg (COMPLETED) 2.5 mg, Nebulization, ONCE, 1 dose, On 07/06/22 at 1515, Initiate RT Bronchodilator Protocol: Yes - ED protocol, 5 years of Age or greater 1504 (Given - Provid er: Amie Huerta RCP) benzonatate (TESSALON) capsule 100 mg (COMPLETED) 100 mg, Oral, ONCE, 1 dose, On Thu07/06/22 at 1545 1544 (Given - Provid er: Wendi Licona, ALYSSA) predniSONE (DELTASONE) tablet 20 mg (COMPLETED) 20 mg, Oral, ONCE, 1 dose, On Thu07/06/22 at 1445 1526 (Given - Provid er: Tamie Brasher RN) Scheduled Medication Order 07/12/2022 07/13/2022 07/14/2022 ipratropium-albuterol (DUONEB) nebulizer solution 1 ampule (COMPLETED) 1 ampule, Inhalation, ONCE, 1 dose, On Thu07/14/22 at 1100, Initiate RT Bronchodilator Protocol: Yes - ED Protocol 1105 (Given - Provid er: Gena Murrieta RCP) methylPREDNISolone sodium (SOLU-MEDROL) injection 125 mg (COMPLETED) 125 mg, IntraMUSCular, ONCE, On Thu07/14/22 at 1100, For 1 dose 1149 (Given - Provid er: Jose Meeks RN) Scheduled Medication Order 07/19/2022 07/20/2022 07/21/2022 oxyCODONE-acetaminophen (PERCOCET) 5-325 MG per tablet 1 tablet (COMPLETED) Mg/kg dosing is based on the oxycodone component., 1 tablet, Oral, ONCE, 1 dose, On Thu07/21/22 at 2045, Maximum dose of acetaminophen is 4000 mg from all sources in 24 hours. 2043 (Given - Provid er: Cordelia Heredia RN) PRN Medication Order 07/19/2022 07/20/2022 07/21/2022 iopamidol (ISOVUE-370) 76 % injection 75 mL (COMPLETED) 75 mL, IntraVENous, IMG ONCE PRN, 1 dose, Starting on Thu07/21/22 at 2041, Until Thu07/21/22 at 2047, Other 2047 (Given - Provid er: Keegan Oliveira) Scheduled Medication Order 10/15/2022 10/16/2022 10/17/2022 0.9 % sodium chloride bolus (COMPLETED) 1,000 mL (6.33 mL/kg), IntraVENous, at 983.6 mL/hr, Administer over 61 Minutes, ONCE, On Thu10/17/22 at 1130, For 1 dose 1211 (New Bag - Prov ider: Anjum Farmer RN)1341 (Stopped - Provider: Anjum Farmer RN) PRN Medication Order 10/15/2022 10/16/2022 10/17/2022 iopamidol (ISOVUE-370) 76 % injection 75 mL (COMPLETED) 75 mL, IntraVENous, IMG ONCE PRN, 1 dose, Starting on Thu10/17/22 at 1357, Until Thu10/17/22 at 1357, Other 1357 (Given - Provid er: Isai Singletary) Scheduled Medication Order 01/19/2023 01/20/2023 01/21/2023 enoxaparin (LOVENOX) injection 240 mg (COMPLETED) 240 mg (rounded from 233.4 mg = 1.5 mg/kg 155.6 kg), SubCUTAneous, ONCE, 1 dose, On Thu01/21/23 at 2345, Indication of Use: Prophylaxis-DVT/PE, Administer by deep subCUTAneous injection with pt lying down. Alternate injection sites on abdominal wall. Do not rub site after injection. Check with provider prior to any invasive procedure. 2339 (Given - Provid er: Amairani Morillo RN) Scheduled Medication Order 06/19/2023 06/20/2023 06/21/2023 aspirin chewable tablet 162 mg (COMPLETED) 162 mg, Oral, ONCE, 1 dose, On 06/21/23 at 1930 1927 (Given - Provid er: Oscar Urrutia RN) ketorolac (TORADOL) injection 15 mg (COMPLETED) 15 mg, IntraVENous, ONCE, 1 dose, On 06/21/23 at 1930, Do not administer for more than 5 days. 1927 (Given - Provid er: Oscra Urrutia RN) sodium chloride 0.9 % bolus 1,000 mL (COMPLETED) 1,000 mL (6.3 mL/kg), IntraVENous, at 1,935.5 mL/hr, Administer over 31 Minutes, ONCE, On 06/21/23 at 1930, For 1 dose 1927 (New Bag - Prov ider: Oscar Urrutia RN)2042 (Stopped - Provider: Oscar Urrutia RN) PRN Medication Order 06/19/2023 06/20/2023 06/21/2023 iopamidol (ISOVUE-370) 76 % injection 100 mL (COMPLETED) 100 mL, IntraVENous, IMG ONCE PRN, 1 dose, Starting on 06/21/23 at 2138, Until 06/21/23 at 2138, Other 2138 (Given - Provid er: Leticia Gan) Care Teams (unrecognized sec tion and content) Chief Operator Relationship Specialty Start Date End Date Yohan James STRATIGRAPHER - [employer] [address] [place] [address] PCP - General 08/27/20 Chief Operator Relationship Specialty Start Date End Date Yohan James STRATIGRAPHER - [employer] [address] [place] [address] PCP - General 08/27/20 Chief Operator Relationship Specialty Start Date End Date Yohan James STRATIGRAPHER - [employer] [address] [place] [address] PCP - General 08/27/20 Chief Operator Relationship Specialty Start Date End Date Yohan James STRATIGRAPHER - [employer] [address] [place] [address] PCP - General 08/27/20 Chief Operator Relationship Specialty Start Date End Date Yohan James STRATIGRAPHER - [employer] [address] [place] [address] PCP - General 08/27/20 Chief Operator Relationship Specialty Start Date End Date Yohan James STRATIGRAPHER - [employer] [address] [place] [address] PCP - General 08/27/20 Chief Operator Relationship Specialty Start Date End Date Yohan James STRATIGRAPHER - [employer] [address] [place] [address] PCP - General 08/27/20 Chief Operator Relationship Specialty Start Date End Date Yohan James CNP [address] [place] [id number] PCP - General Family Medicine 02/12/22 Chief Operator Relationship Specialty Start Date End Date Yohan James CNP [address] [place] [address] PCP - General Family Medicine 02/12/22 Chief Operator Relationship Specialty Start Date End Date Yohan James CNP [address] [place] [id number] PCP - General Family Medicine 02/12/22 Chief Operator Relationship Specialty Start Date End Date Yohan James, STRATIGRAPHER - [employer] [address] [place] [address] PCP - General 08/27/20 Chief Operator Relationship Specialty Start Date End Date Yohan James, STRATIGRAPHER - [employer] [address] [place] [address] PCP - General 08/27/20 Chief Operator Relationship Specialty Start Date End Date Yohan James STRATIGRAPHER - [employer] [address] [place], [place] [address] PCP - General 08/27/20 Chief Operator Relationship Specialty Start Date End Date Yohan James STRATIGRAPHER - BANK APPRAISER [address] [place] [address] PCP - General 08/27/20 Chief Operator Relationship Specialty Start Date End Date Yohan James STRATIGRAPHER - [employer] [address] [place] [address] PCP - General 08/27/20 Chief Operator Relationship Specialty Start Date End Date Blanca, Yohan L, STRATIGRAPHER - B[employer] AP[employer]IS[employer] [address] [place] [address] PCP - General 08/27/20 Chief Operator Relationship Specialty Start Date End Date Blanca, Yohan Kathrin STRATIGRAPHER - B[employer] AP[employer] [address] [place] [address] PCP - General 08/27/20 Chief Operator Relationship Specialty Start Date End Date Yohan James STRATIGRAPHER - [employer] [address] [place] [address] PCP - General 08/27/20 Chief Operator Relationship Specialty Start Date End Date Yohan James STRATIGRAPHER - B[employer] [address] [place] [address] PCP - General 08/27/20 Chief Operator Relationship Specialty Start Date End Date Yohan James STRATIGRAPHER - [employer] [address] [place] [address] PCP - General 08/27/20 Chief Operator Relationship Specialty Start Date End Date Yohan James APRN - B[employer] [address] [place] [address] PCP - General 08/27/20 Chief Operator Relationship Specialty Start Date End Date Yohan James STRATIGRAPHER - B[employer] AP[employer] [address] [place] [address] PCP - General 08/27/20 Chief Operator Relationship Specialty Start Date End Date Yohan James STRATIGRAPHER - [employer] [address] [place] [address] PCP - General 08/27/20 Chief Operator Relationship Specialty Start Date End Date Yohan James STRATIGRAPHER - B[employer] AP[employer] [address] [place] [address] PCP - General 08/27/20 Chief Operator Relationship Specialty Start Date End Date Yohan James APRN - B[employer] [address] [place] [address] PCP - General 08/27/20 Chief Operator Relationship Specialty Start Date End Date Yohan James APRN - B[employer] [address] [place] [address] PCP - General 08/27/20 Chief Operator Relationship Specialty Start Date End Date Yohan James APRN - B[employer] [address] [place] [address] PCP - General 08/27/20 Chief Operator Relationship Specialty Start Date End Date Yohan James APRN - [employer] [address] [place] [address] PCP - General 08/27/20 Chief Operator Relationship Specialty Start Date End Date Yohan James APRN - [employer] [address] [place] [address] PCP - General 08/27/20 Chief Operator Relationship Specialty Start Date End Date Janette Miller, STRATIGRAPHER-PROFESSIONAL PROGRAMMER ANALYST [address] [place] [address] PCP - General 06/09/24 Chief Operator Relationship Specialty Start Date End Date Janette Miller, STRATIGRAPHER-PROFESSIONAL PROGRAMMER ANALYST [address] [facility] [address] [place] [address] PCP - General 06/09/24 Chief Operator Relationship Specialty Start Date End Date Janette Miller, STRATIGRAPHER-[facility] [address] [facility] [place] [address] [facility] 06/09/24 Chief Operator Relationship Specialty Start Date End Date [facility] [address] [facility] [place] [address] [facility] 06/09/24 Chief Operator Relationship Specialty Start Date End Date [facility] [address] [facility] [place] [address] [facility] 06/09/24 Chief Operator Relationship Specialty Start Date End Date Janette Miller [facility] [address] [facility] [address] [facility] [place] [address] [facility] 06/09/24 FOR RECORDS PERTAINING TO PATIENTS WHO ARE OR HAVE BEEN ENROLLED IN A CHEMICAL DEPENDENCY/SUBSTANCEABUSE PROGRAM, SOME INFORMATION MAY BE OMITTED. This clinical summary was aggregated from multiple sources. Caution should be exercised in using it in the provision of clinical care. This summary normalizes information from multiple sources, and as a consequence, information in this document may materially change the coding, format and clinical context of patient data. In addition, data may be omitted in some cases. CLINICAL DECISIONS SHOULD BE BASED ON THE PRIMARY CLINICAL RECORDS. [facility] [employer] [facility]. provides no warranty or guarantee of the accuracy or completeness of information in this document.
--- NOTE | 2024-09-30 06:52 | MR_ITS ---
[facility] [place] [id number] Patient Name: EFE DODGE MRN: [id number] date: 1995 Sex: F Assigned Patient Location: MRI Current Patient Location: MRI Accession/Order Number: [id number] Exam Date: 09/30/2024 08:51 Report Date: 09/30/2024 09:45 At the request of: LEONARD CHEW MD Procedure: MR hand RT wo con MRI of the right hand without contrast Routine technique HISTORY: Right trigger thumb. Right thumb pain. No injury. Pain is predominantly in the first metacarpophalangeal joint. Scheduled for surgery 10/03/2024. Within the sheath of the flexor pollicis longus tendon there is a large amount of fluid identified. This is predominantly in the region of the first metacarpal phalangeal joint. Mild thickening of the tendon. No abnormal signal of the tendon. Adequate position of the tendon. Marginal spurring of the metacarpal phalangeal joint. No significant bone marrow edema. No identifiable fracture. No bony lesion. Extensor tendons of thumb intact. Collateral ligaments of the first metacarpal phalangeal joint intact. No ganglion cyst identified. The first interphalangeal articulation unremarkable. The remaining hand unremarkable. Remaining flexor and extensor tendons of the hand unremarkable. No ligamentous abnormality. No worrisome bone marrow edema. Unremarkable soft tissues. MR/MR hand RT wo con IMPRESSION: Findings consistent with tenosynovitis of the extensor pollicis longus. first metacarpal phalangeal degenerative change. Impression dictated by: Luis Kaiser M.D.09/30/2024 9:45 AM Dictation Location: [facility] Electronically authenticated by: [id number] Y Date: 09/30/2024 09:45
== END 2024-09-30 06:36 | disposition home or self-care (01) ==
LOC: MRI 06:35
PROVIDERS: PCP Internal Medicine; Visit Provider Orthopaedic Surgery
DX: M65.311 Trigger thumb, right thumb (principal)
CPT/HCPCS: 73218

== ENCOUNTER 2024-10-03 11:57 | Day surgery (SDC) | payer OTHER, SELFPAY ==
[2024-09-19 10:33] VITALS: BP 123/77; PULSE 61; TEMP 36.4; O2SAT 98; BMI 49.1
[2024-10-03 12:11] VITALS: BP 160/84; PULSE 77; TEMP 36.3; O2SAT 97; BMI 49.1
[2024-10-03] MEDS: 0.9 % SODIUM CHLORIDE 500 ML 50 ML IV (12:21)
[2024-10-03] MEDS: CEFAZOLIN SODIUM 2 GM/50 ML D5W PREMIX IV (12:52)
[2024-10-03] MEDS: BUPIVACAINE HCL 0.5% PF 50 MG/10 ML VIAL 5 ML INJ (13:03)
[2024-10-03] MEDS: LIDOCAINE HCL 1%-EPINEPHRINE 1:100,000 20 ML MDV 5 ML INJ (13:03)
[2024-10-03 13:27] VITALS: BP 172/91; PULSE 85; TEMP 36.8; O2SAT 95
[2024-10-03 13:42] VITALS: BP 181/92; PULSE 72; O2SAT 95
[2024-10-03 13:57] VITALS: BP 127/89; PULSE 74; O2SAT 98
--- NOTE | 2024-10-03 14:05 | P.ORPRC_ITS ---
Procedure Note Date of procedure: 10/03/24 Pre-op diagnosis: Right trigger thumb Post-op diagnosis: same as pre-op Procedure: Procedures:: Right trigger thumb release Detailed description of procedure: After informed consent was obtained the patient brought to the operating room where monitored anesthetic was administered. 2.5 mL 1% lidocaine with epinephrine combined with 2.5 mL of 0.5% Marcaine plain were infiltrated over the A1 barb of the right thumb. The right arm was prepped and draped in usual sterile fashion. The arm was elevated, exsanguinated, and a well-padded proximal arm tourniquet was inflated to 250 mmHg. 1.5 cm transverse skin incision was made overlying the A1 barb and the pre- existing crease of the thumb. Blunt dissection was carried down through soft tissue in order to preserve superficial neurovascular structures. A1 barb was identified and incised from distal to proximal. Complete separation was achieved. Flexion and this and extension of the thumb resulted in complete resolution of triggering. Tendon appeared normal. Drain was deflated. Wound was irrigated and closed with a nylon suture. Sterile dressing was placed. Patient was brought to the recovery room in stable condition. There were no intraoperative or immediate postoperative complications. Anesthesia: MAC and local Surgeon: Lan Randall Estimated blood loss (mL): 1 Pathology: none sent Condition: stable Disposition: PACU
== END 2024-10-03 14:05 | disposition home or self-care (01) ==
PROVIDERS: PCP Internal Medicine; Visit Provider Orthopaedic Surgery
PROC: (CPT 1810; principal; 2024-10-03 13:00)
DX: M65.311 Trigger thumb, right thumb (principal); M79.7 Fibromyalgia; Z90.710 Acquired absence of both cervix and uterus; Z90.49 Acquired absence of other specified parts of digestive tract; E66.01 Morbid (severe) obesity due to excess calories; Z68.42 Body mass index [BMI] 45.0-49.9, adult; J45.909 Unspecified asthma, uncomplicated
CPT/HCPCS: 26055; 36415; J0665; J0690; J1100; J1885; J2250; J2405; J2704; J3010